=== PATIENT | male | born 1970 | race Caucasian/White ===

== ENCOUNTER 2017-06-08 00:12 | Observation (INO) ==
--- NOTE | 2017-06-08 01:11 | Emergency Department Note ---
Disposition Clinical Impression: Suicidal ideation Drug overdose Qualifiers: Encounter type: initial encounter Injury intent: undetermined intent Qualified Code(s): T50.904A - Poisoning by unspecified drugs, medicaments and biological substances, undetermined, initial encounter Disposition: Admitted As Inpatient Condition: Fair Time of Disposition: 03:26 General Adult HPI - General Chief complaint: ED Overdose Stated complaint: nonresponsive Time Seen by Provider: 06/08/17 00:18 Source: patient, EMS Limitations: no limitations Nursing Notes Reviewed: Yes Vital Signs Reviewed: Yes - History of Present Illness HPI Narrative: 47-year-old homeless male presents to the emergency department after being [place] un[place] [employer] [place]. EMS states that they [place] him [place] the [place] lying on the pavement with constricted pupils, low respiratory rate. Patient received Narcan intranasally and became responsive. Upon presentation the emergency department, patient denies using any drugs. Patient states that if he is discharged home he will "jump out in front of a truck and kill himself". Pain Scale: 0 - Related Data Previous Rx's Medication Instructions Recorded Nicotine Patch [Nicoderm] 21 mg TD DAILY #30 patch.td24 06/02/17 metFORMIN [Glucophage] 500 mg PO BIDWM #60 tablet 06/02/17 Allergies Allergy/AdvReac Type Severity Reaction Status Date / Time Amoxicillin Allergy Hives Verified 04/24/17 07:41 Penicillins Allergy Hives Verified 04/24/17 07:41 All systems ED: reviewed and negative except as stated. Review of Systems: As Per HPI Constitutional: Denies: fever, chills Cardiovascular: Denies: chest pain Respiratory: Denies: cough, dyspnea, wheezes Gastrointestinal: Reports: nausea, vomiting. Denies: abdominal pain Genitourinary: Denies: urgency, dysuria, frequency Musculoskeletal: Reports: back pain Neurological: Denies: headache, weakness, numbness, paresthesias Psychiatric: Reports: suicidal thoughts. Denies: homicidal thoughts Past Medical History - Past Medical History Medical history: Reports: hypertension, myocardial infarction Psychiatric history: Reports: depression, previous psychiatric hospitalization - Social History Smoking Status: Current every day smoker Smokeless Tobacco Status: No Alcohol use: Reports: heavy Drug use: Reports: cocaine, opiates, marijuana Physical Exam - General Limitations: no limitations General appearance: alert, in no apparent distress, other (Obese 47-year-old male who appears mildly somnolent.) - Head Head exam: atraumatic, normocephalic - Eye Eye exam: Present: EOMI. Absent: scleral icterus, conjunctival injection - ENT ENT exam: mucous membranes dry - Neck Neck exam: Present: trachea midline. Absent: tenderness, meningismus - Chest Chest inspection: Present: normal inspection, symmetric chest wall rise - Respiratory Respiratory exam: Present: normal lung sounds bilaterally. Absent: respiratory distress, accessory muscle use - Cardiovascular Cardiovascular exam: Present: normal rhythm, tachycardia, normal heart sounds - Abdominal Exam Abdominal exam: Present: soft, Non-Tender. Absent: distention, guarding, rebound, rigidity - Extremities Exam Extremities exam: Present: normal capillary refill. Absent: pedal edema - Back Exam Back exam: Present: full ROM. Absent: tenderness - Neurological Exam Neurological exam: Present: alert, oriented X3, other (Patient appears intoxicated.) - Psychiatric Psychiatric exam: Present: normal affect, normal mood - Skin Skin exam: Present: warm, dry, intact, normal color Course Course Narrative: This is a 47-year-old male who is homeless and presents to the emergency department after being found unresponsive by EMS. Patient currently states that he will jump in front of a truck and kill himself if he is discharged home. At this time, due to his suicidal ideations, we will obtain an EKG, urine drug screen, CBC, CMP, alcohol level, salicylate and Tylenol level. He is currently hemodynamically stable at this time a pink slip was filled out and signed by myself and Dr. Oseguera. Patient currently has a sitter. - Reevaluation(s) Reevaluation #1: Patient began to become a little more somnolent after initial initiation of Narcan. 1 mg of Narcan was given. Patient is now currently alert again. Urine drug screen revealed barbiturates, opiates, benzodiazepines. Patient's salicylate level less than 5. Patient is not having elevated ethanol level or Tylenol level. At this time, I believe the patient is medically cleared. I have talked to 1A for psychiatric clearance. Patient is currently hemodynamically stable at this time and eating a sandwich comfortably in bed. Time: 02:09 Reevaluation #2: Patient became somnolent again and was administered an additional milligram of Narcan. At this time, I will cancel the medical clearance as there is concern of what this patient may have ingested. He currently is alert and oriented. Time: 03:07 Reevaluation #3: Patient was admitted to the hospitalist with telemetry and requirement of a sitter to monitor his respiratory status. Time: 03:26 Vital Signs Temperature 97.6 F 06/08/17 00:19 Pulse Rate 110 06/08/17 00:19 Respiratory Rate 20 06/08/17 00:19 Blood Pressure 169/96 06/08/17 00:19 O2 Sat by Pulse Oximetry 98 06/08/17 00:19 Temperature 97.6 F 06/08/17 00:19 Pulse Rate 100 06/08/17 03:22 Respiratory Rate 22 06/08/17 03:43 Blood Pressure 146/83 06/08/17 03:22 O2 Sat by Pulse Oximetry 96 06/08/17 03:43 Oxygen Delivery Oxygen Delivery Room Air Medical Decision Making - Medical Records Medical records reviewed: Yes I reviewed the patient's medical records. - Lab Data Lab results reviewed: Yes I reviewed the patient's lab results. Result diagrams: 06/08/17 01:09 06/08/17 01:09 Lab Results 06/08/17 06/08/17 06/08/17 Range/Units 01:09 01:09 01:09 WBC 12.8 H (4.3-11.1) K/mcL RBC 4.29 (4.19-5.50) M/mcL Hgb 12.8 L (12.9-16.9) g/dL Hct 40.0 (37.5-50.1) % MCV 93.2 (83.0-100.0) fL MCH 29.8 (28.0-33.3) pg MCHC 32.0 (31.6-35.5) g/dL RDW 14.4 (11.5-14.5) % Plt Count 262 (140-400) K/mcL MPV 9.6 (9.4-12.4) fL Immature Gran % 1.2 (0-4) % Seg Neutrophils % 80.5 % Lymphocytes % 11.2 % Monocytes % 6.0 % Eosinophils % 0.6 % Basophils % 0.5 % Neutrophils # 10.3 H (1.6-8.9) K/mcL Lymphocytes # 1.4 (0.6-4.6) K/mcL Monocytes # 0.8 (0.0-1.3) K/mcL Eosinophils # 0.1 (0.0-0.6) K/mcL Basophils # 0.1 (0.0-0.2) K/mcL Immature Plt Fraction 2.6 (1.1-6.1) % Sodium (136-145) mEq/L Potassium (3.5-4.5) mEq/L Chloride (98-109) mEq/L Carbon Dioxide (19-29) mEq/L BUN (8-26) mg/dL Creatinine (0.72-1.25) mg/dL Est GFR ( Amer) (> 60) Est GFR (Non-Af Amer) (> 60) BUN/Creatinine Ratio (6-26) Glucose (70-99) mg/dL Calculated Osmolality (280-300) Calcium (8.6-10.8) mg/dL Urine Color Yellow (Yellow) Urine Clarity Cloudy A (Clear) Urine pH 6.5 (5.0-8.0) pH Units Ur Specific [place] 1.023 (1.010-1.025) Urine Protein 100 H (Neg-Trace) mg/dL Urine Glucose (UA) 250 H (Normal) mg/dL Urine Ketones Negative (Negative) mg/dL Urine Blood Negative (Negative) Urine Nitrite Negative (Negative) Urine Bilirubin Negative (Negative) Urine Urobilinogen Normal (Normal) mg/dL Ur Leukocyte Esterase Negative (Negative) Urine Microscopic RBC 0-3 (0-3) per hpf Urine Microscopic WBC 0-3 (0-3) per hpf Ur Squamous Epith Cells Many H (None-Few) per lpf Urine Bacteria None Seen (None-Few) per hpf Hyaline Casts None Seen (None-Few) per lpf Salicylates (15-30) mg/dL Urine Opiates Screen Positive H (Dtlzoi=314) ng/mL Acetaminophen (10-30) mcg/mL Ur Barbiturates Screen Positive H ([place]ou=079) ng/mL Ur Phencyclidine Scrn Negative (Cutoff=25) ng/mL Ur Amphetamines Screen Negative (Uvbcxe=2720) ng/mL U Benzodiazepines Scrn Positive H (Wivjfz=129) ng/mL Urine Cocaine Screen Positive H (Cutoff= 300) ng/mL U Marijuana (THC) Screen Negative (Cutoff = 50) ng/mL Ethyl Alcohol (0-10) mg/dL 06/08/17 Range/Units 01:09 WBC (4.3-11.1) K/mcL RBC (4.19-5.50) M/mcL Hgb (12.9-16.9) g/dL Hct (37.5-50.1) % MCV (83.0-100.0) fL MCH (28.0-33.3) pg MCHC (31.6-35.5) g/dL RDW (11.5-14.5) % Plt Count (140-400) K/mcL MPV (9.4-12.4) fL Immature Gran % (0-4) % Seg Neutrophils % % Lymphocytes % % Monocytes % % Eosinophils % % Basophils % % Neutrophils # (1.6-8.9) K/mcL Lymphocytes # (0.6-4.6) K/mcL Monocytes # (0.0-1.3) K/mcL Eosinophils # (0.0-0.6) K/mcL Basophils # (0.0-0.2) K/mcL Immature Plt Fraction (1.1-6.1) % Sodium 139 (136-145) mEq/L Potassium 3.8 (3.5-4.5) mEq/L Chloride 103 (98-109) mEq/L Carbon Dioxide 27 (19-29) mEq/L BUN 16 (8-26) mg/dL Creatinine 1.02 (0.72-1.25) mg/dL Est GFR ( Amer) > 60 (> 60) Est GFR (Non-Af Amer) > 60 (> 60) BUN/Creatinine Ratio 16 (6-26) Glucose 207 H (70-99) mg/dL Calculated Osmolality 295 (280-300) Calcium 8.9 (8.6-10.8) mg/dL Urine Color (Yellow) Urine Clarity (Clear) Urine pH (5.0-8.0) pH Units Ur Specific [place] (1.010-1.025) Urine Protein (Neg-Trace) mg/dL Urine Glucose (UA) (Normal) mg/dL Urine Ketones (Negative) mg/dL Urine Blood (Negative) Urine Nitrite (Negative) Urine Bilirubin (Negative) Urine Urobilinogen (Normal) mg/dL Ur Leukocyte Esterase (Negative) Urine Microscopic RBC (0-3) per hpf Urine Microscopic WBC (0-3) per hpf Ur Squamous Epith Cells (None-Few) per lpf Urine Bacteria (None-Few) per hpf Hyaline Casts (None-Few) per lpf Salicylates < 5.0 L (15-30) mg/dL Urine Opiates Screen (Cyphuu=155) ng/mL Acetaminophen < 1.0 L (10-30) mcg/mL Ur Barbiturates Screen (Bgyszg=219) ng/mL Ur Phencyclidine Scrn (Cutoff=25) ng/mL Ur Amphetamines Screen ([place]=2710) ng/mL U Benzodiazepines Scrn (Jdokbh=391) ng/mL Urine Cocaine Screen (Cutoff= 300) ng/mL U Marijuana (THC) Screen (Cutoff = 50) ng/mL Ethyl Alcohol < 10 (0-10) mg/dL - EKG Data EKG #1 EKG results narrative: 00:51 Ventricular rate 102 bpm, MS interval 157 ms, QRS duration 96 ms, QT 372 ms, QTC 431 ms, normal axis. Sinus tachycardia with a ventricular rate of 102 bpm. There is no tall R-wave in aVR, no QT prolongation, or any arrhythmia. There are no changes in this EKG in comparison to the one performed on June 01 2017. Critical Care Time Critical Care Time: Yes Total Critical Care Time: 40 Attestation: Critical care performed: Time is exclusive of separately billable procedures. Time includes: direct patient care, patient reassessment, coordination of patient care, interpretation of data (laboratory data, radiology data, and respiratory data), review of patient's medical records, medical consultation and documentation of patient care. Procedures included in critical care time: Procedures excluded from critical care time: Attestation Statement - Attestation Attestation: I, Adrian Oseguera MD, personally evaluated this patient and discussed their management with the resident physician. I reviewed the resident's note and agree with the documented findings, medical decision making, and plan of care. 47-year-old obese male who is homeless and [place] [employer] [place] unresponsive. He received Narcan prior to arrival and responded. On arrival here the patient was awake but drowsy. He will not admit to taking any drugs. He states that he is alcoholic and drinks alcohol every day and has been trying to cut back and wants to stop. Patient states he wants to be admitted because he is homeless and does not have anywhere to go and it is cold outside. After patient observed for a while he became very somnolent and unresponsive and required additional Narcan. Patient then started expressing suicidal ideation stating that if we discharge him he is going to go out and kill himself. He states he will walk out in front of a truck on the highway. Patient then became more somnolent again requiring more Narcan. Decision was made to admit the patient medically until whatever he has taken wares off so that he can be evaluated by psychiatry. On examination patient is a morbidly obese male in no acute distress. He is somewhat drowsy but responds to verbal stimuli. Speech is slurred. No gross focal neurological deficits. Breath sounds are decreased but equal bilaterally. Heart regular. Abdomen soft with normal bowel sounds. Labs reviewed. Tox screen positive for opiates, benzodiazepines, cocaine, and barbiturates. The hospitalist, Dr. Atkins, was consulted and accepted admission of the patient.
[2017-06-08 01:15] LABS: Basophils # 0.1 K/mcL (0.0-0.2); Basophils % 0.5 %; Eosinophils # 0.1 K/mcL (0.0-0.6); Eosinophils % 0.6 %; Hemoglobin 12.8 g/dL (12.9-16.9); Immature Granulocytes % 1.2 % (0-4); Immature Platelets 2.6 % (1.1-6.1); Lymphocytes # 1.4 K/mcL (0.6-4.6); Lymphocytes % 11.2 %; Mean Corpuscular Hemoglobin 29.8 pg (28.0-33.3); Mean Corpuscular Volume 93.2 fL (83.0-100.0); Mean Platelet Volume 9.6 fL (9.4-12.4); Monocytes # 0.8 K/mcL (0.0-1.3); Neutrophils # 10.3 K/mcL (1.6-8.9); Platelet Count 262 K/mcL (140-400); Red Blood Count 4.29 M/mcL (4.19-5.50); Red Cell Distribution Width 14.4 % (11.5-14.5); Segmented Neutrophils % 80.5 %
[2017-06-08 01:17] LABS: Bilirubin,Urine Negative (Negative); Blood,Urine Negative (Negative); Clarity,Urine Cloudy (Clear); Color,Urine Yellow (Yellow); Glucose,Urine (UA) 250 mg/dL (Normal); Ketones,Urine Negative (Negative); Leukocyte Esterase,Urine Negative (Negative); Nitrite,Urine Negative (Negative); PH,Urine 6.5 pH Units (5.0-8.0); Protein,Urine 100 mg/dL (Neg-Trace); Specific Gravity,Urine 1.023 (1.010-1.025); Urobilinogen,Urine Normal (Normal)
[2017-06-08 01:18] LABS: Bacteria,Urine None Seen per hpf (None-Few); Hyaline Casts,Urine None Seen per lpf (None-Few); RBC,Urine 0-3 per hpf (0-3); Squamous Epithelial Cell,Urine Many per lpf (None-Few); WBC,Urine 0-3 per hpf (0-3)
[2017-06-08 01:23] LABS: Amphetamine Screen,Urine Negative ng/mL (Cutoff=1000); Barbiturate Screen,Urine Positive ng/mL (Cutoff=200); Benzodiazepines Screen,Urine Positive ng/mL (Cutoff=200); Cannabinoid Screen,Urine Negative ng/mL (Cutoff = 50); Cocaine Screen,Urine Positive ng/mL (Cutoff= 300); Opiate Screen,Urine Positive ng/mL (Cutoff=300); Phencyclidine Screen,Urine Negative ng/mL (Cutoff=25)
[2017-06-08 01:28] LABS: BUN/Creatinine Ratio 16 (6-26); Blood Urea Nitrogen 16 mg/dL (8-26); Calcium 8.9 mg/dL (8.6-10.8); Carbon Dioxide 27 mEq/L (19-29); Chloride 103 mEq/L (98-109); Glucose 207 mg/dL (70-99); Osmolality,Calculated 295 (280-300); Potassium 3.8 mEq/L (3.5-4.5); Sodium 139 mEq/L (136-145); eGFR For African Americans > 60 (> 60); eGFR For Non-African Americans > 60 (> 60)
[2017-06-08 01:31] LABS: Acetaminophen < 1.0 mcg/mL (10-30); Ethanol < 10 mg/dL (0-10); Salicylate < 5.0 mg/dL (15-30)
[2017-06-08] MEDS ORDERED: Naloxone 0.4 MG/ML INJ IVP PRN ×2 (07:37→07:38)
[2017-06-08] MEDS ORDERED: Mag Hydrox/Al Hydrox/Simeth 30 ML UDC PO PRN (07:38)
[2017-06-08] MEDS ORDERED: Ondansetron 4 MG/2 ML VIAL IVP PRN (07:38)
[2017-06-08] MEDS ORDERED: MOM Conc 10 ML UD.LIQ PO PRN (07:38)
[2017-06-08] MEDS ORDERED: *HR* Dextrose 50 % in Water (Syg) 50 ML SYRINGE IVP PRN (07:41)
[2017-06-08] MEDS ORDERED: Dextrose Gel 15 GM PO PRN ×2 (07:41)
[2017-06-08] MEDS ORDERED: D5% in Water 1,000 ML IVC PRN (07:41)
[2017-06-08] MEDS ORDERED: *HR* LORazepam 2 MG/ML VIAL IVP PRN (07:43)
[2017-06-08] MEDS: Nicotine 21 MG PATCH.TD24 TD SCH (09:19)
[2017-06-08] MEDS: Vitamin B Complex/Vit C/Vit E 1 EACH TABLET PO SCH (09:19)
[2017-06-08] MEDS: Folic Acid 1 MG TABLET PO SCH (09:19)
[2017-06-08] MEDS: Doxycycline 100 MG CAPSULE PO SCH ×2 (09:19→20:28)
[2017-06-08] MEDS: *HR* LORazepam 2 MG/ML VIAL IVP PRN ×6 (09:37→23:40)
--- NOTE | 2017-06-08 09:42 | Internal Med History&Physical ---
Date of Encounter: 06/08/17 Time of Encounter: 08:15 Assessment and Plan (1) Drug overdose Current visit: Yes Status: Acute Pt found unresponsive with drug screen positive for benzo, opiate and barbiturate. Monitoring. Now awake and alert. Qualifiers: Encounter type: initial encounter Injury intent: undetermined intent Qualified Code(s): T50.904A - Poisoning by unspecified drugs, medicaments and biological substances, undetermined, initial encounter (2) Suicidal ideation Current visit: Yes Status: Acute Placed in observation. Sitter and suicide precautions. Psych eval. Pt is medically clear for discharge at this time. (3) Depression Current visit: No Status: Chronic Psych eval for plan of care. Qualifiers: Depression Type: major depressive disorder Major depression recurrence: recurrent Active/Remission status: currently active Major depression episode severity: moderate Qualified Code(s): F33.1 - Major depressive disorder, recurrent, moderate (4) Polysubstance abuse Current visit: No Status: Chronic Monitor for withdrawal symptoms. (5) Alcohol withdrawal Current visit: No Status: Chronic On CIWA at this time. Qualifiers: Complication of substance-induced condition: uncomplicated Qualified Code(s ): F10.230 - Alcohol dependence with withdrawal, uncomplicated (6) Hypertension Current visit: No Status: Chronic Monitoring. On no home meds at this time. Qualifiers: Hypertension type: essential hypertension Qualified Code(s): I10 - Essential (primary) hypertension (7) Diabetes mellitus Current visit: Yes Status: Chronic Hold Metformin. Accuchecks and coverage. Qualifiers: Diabetes mellitus type: type 2 Diabetes mellitus complication status: with hyperglycemia Diabetes mellitus continuous churn buttermaker insulin use: without group home use Qualified Code(s): E11.65 - Type 2 diabetes mellitus with hyperglycemia (8) Tobacco abuse Current visit: Yes Status: Chronic Cessation counselling. (9) Morbid obesity with BMI of 50.0-59.9, adult Current visit: Yes Status: Chronic Chronic issue. Internal Medicine - H&P: HPI Admitted From: Emergency Dept Plans for Post Hospital Care: Transfer Psych Facility History of present illness: Mr. Adams is a 47 year old male with hx of CAD and chronic polysubstance abuse with alcohol and drugs (heroin and cocaine) brought to ED after being found unresponsive in [employer] parking lot. He was evaluated in ED and required multiple doses of Narcan to remain awake. He was subsequently admitted. Currently he is awake and oriented. He is complaining of L shoulder pain and was told he needs an MRI. He is also worried about his legs and concerned about cellulitis. He says he feels shaky and wants something for alcohol withdrawal. He was here about a week ago and treated for ETOH and discharged to inpatient detox. He says it was not covered by his insurance so he left. He has made comments about planning to "step out in front of a truck" if he is discharged. At this time he is eating breakfast. Past Med Surg Social Fam HX - Past Medical History Source: patient Medical history: CHF, hypertension, myocardial infarction Psychiatric history: depression, prior suicide attempt, previous psychiatric hospitalization - Past Surgical History Surgical History: no surgical history - Social History Smoking Status: Current every day smoker Packs per day: 1 Smokeless Tobacco Status: No Alcohol use: heavy, recent Drug use: cocaine, opiates, marijuana, IV Drug Use Current living situation: Homeless Activity Level: Independent ambulation Recent Out of Country Travel Within the Last 8 Weeks: No Exposure or Possible Exposure to Illness During Travel: No - Family History Father Living Status: Age at : 56 Cause of : Alcoholism Internal Medicine - H&P: Meds Nicotine Patch [Nicoderm] 21 mg TD DAILY #30 patch.td24 06/02/17 [Rx] metFORMIN [Glucophage] 500 mg PO BIDWM #60 tablet 06/02/17 [Rx] 3 Allergy/AdvReac Type Severity Reaction Status Date / Time Amoxicillin Allergy Hives Verified 04/24/17 07:41 Penicillins Allergy Hives Verified 04/24/17 07:41 All Systems PM: A 10-system review of systems was performed and is negative for pertinent findings except as documented above in the HPI. - Constitutional Constitutional: as per HPI, no chills, no fever(s) - EENT Eyes: as per HPI, no blurry vision, no loss of vision, no pain Ears: as per HPI, no decreased hearing, no ear pain Nose, mouth and throat: as per HPI, no dental pain, no mouth pain, no sore throat - Cardiovascular Cardiovascular ROS IM: as per HPI, dyspnea, edema, no chest pain - Respiratory Respiratory: as per HPI, dyspnea, no hemoptysis, no wheezing, no chest congestion - Gastrointestinal Gastrointestinal: as per HPI, no abdominal pain, no diarrhea, no melena - Genitourinary Genitourinary ROS male: as per HPI, no dysuria, no flank pain, no nocturia - Musculoskeletal Musculoskeletal ROS IM: as per HPI, limited range of motion (L shoulder), stiffness (L shoulder) - Integumentary Integumentary IM: no erythema, no new lesions - Neurological Neurological ROS: no abnormal gait, no abnormal hearing, no confusion, no numbness, no vertigo - Psychiatric Psychiatric: depression, suicidal ideation - Endocrine Endocrine IM: no cold intolerance, no flushing - Hematologic/Lymphatic Hematologic/Lymphatic: no easy bleeding - Allergic/Immunologic Allergic/Immunologic: no wheezing, no lip swelling - Constitutional Vitals: Temp Pulse Resp BP Pulse Ox 97.7 F 97 18 161/104 99 06/08/17 04:59 06/08/17 04:59 06/08/17 04:59 06/08/17 04:59 06/08/17 07:41 General appearance: Present: A&O X 3, morbidly obese, answers questions appropriately - Head Head exam: Present: normocephalic - Eye Eye exam: Present: EOMI, conjuntiva pink - ENT ENT exam: Present: mucous membranes moist - Respiratory Respiratory exam: Present: CTAB. Absent: rales, rhonchi, wheezes - Cardiovascular Cardiovascular exam: Present: RRR. Absent: tachycardia - GI/Abdominal Additional comments: Obese. Difficult to feel. - Extremities Exam Extremities exam: Present: pedal edema, warm Additional comments: Changes consistent with venous stasis bilaterally. Mild erythema bilaterally - Neurological Exam Neurological exam: Present: alert, oriented X3, no focal deficits - Psychiatric Psychiatric exam: Present: depressed, suicidal ideation - Skin Skin exam: Present: erythema, warm Additional comments: Ecchymosis on abdomen Internal Med - H&P Results - Labs CBC & Chem 7: 06/08/17 01:09 06/08/17 01:09
[2017-06-08 11:13] LABS: ABG Base Excess 4.6 mEq/L (-2.0 to 3.0); ABG Glucose 150 mg/dL (60-95); ABG HCO3 32 mEq/L (21-27); ABG Ionized Calcium 1.19 mmol/L (1.15-1.35); ABG Oxygen Saturation 93 % (95-98); ABG PCO2 61 mmHg (35-45); ABG PH 7.33 pH Units (7.32-7.45); ABG PO2 73 mmHg (85-104); ABG TCO2 34 mEq/L (20-26)
[2017-06-08 11:14] LABS: Blood Gas Modality NC
[2017-06-08] MEDS: Insulin LISPRO 300 UNITS/3 ML VIAL SQ SCH ×3 (11:54→20:28)
--- NOTE | 2017-06-08 14:36 | Consult Note ---
Date of Encounter: 06/08/17 Time of Encounter: 14:10 Assessment & Recommendation (1) Altered mental status Current visit: Yes Status: Acute Assessment & Recommendation: Patient is currently lethargic and nonresponsive. He will be reevaluated when he is more alert. Qualifiers: Altered mental status type: delirium Qualified Code(s): R41.0 - Disorientation, unspecified History of Present Illness Patient: new to practice Requesting Physician: Davi Mendez DO Reason for consult: Suicidal ideation History of present illness: Mr. Adams is a 47 year old male admitted to the hospital for evaluation and treatment of possible drug overdose, tox screen was positive for barbiturates benzodiazepine and cocaine. Patient had long history of polysubstance abuse and alcohol dependence in addition to hypertension and diabetes and morbid obesity. Psych consultation was requested to evaluate suicidal ideation. No record of past psychiatric treatments or hospitalization are available at this time. I went to see the patient and he was lethargic and not able to respond to question and receiving respiratory treatment and could not be interviewed. I discussed the case by phone with his provider Davi mendez and he would be monitored and may need to be reevaluated tomorrow. CC: Davi Mendez DO Past Med Surg Social Fam HX - Past Medical History Medical history: CHF, hypertension, myocardial infarction - Past Surgical History Surgical History: no surgical history - Social History Smoking Status: Current every day smoker Smokeless Tobacco Status: No Alcohol use: heavy, recent Drug use: cocaine, opiates, marijuana, IV Drug Use - Family History Father Living Status: Age at : 56 Cause of : Alcoholism Medications & Allergies Nicotine Patch [Nicoderm] 21 mg TD DAILY #30 patch.td24 06/02/17 [Rx] metFORMIN [Glucophage] 500 mg PO BIDWM #60 tablet 06/02/17 [Rx] 3 Allergy/AdvReac Type Severity Reaction Status Date / Time Amoxicillin Allergy Hives Verified 04/24/17 07:41 Penicillins Allergy Hives Verified 04/24/17 07:41 Mental Status Exam Additional observations: Patient presented as morbidly obese middle-aged male lying in bed with a respiratory treatment mask and could not be interviewed due to his lethargy. Results - Vital Signs Vital signs: Temp Pulse Resp BP Pulse Ox 97.7 F 102 20 129/68 97 06/08/17 04:59 06/08/17 10:28 06/08/17 10:28 06/08/17 10:28 06/08/17 10:28 - Labs Labs: Laboratory Last Values WBC 12.8 K/mcL (4.3-11.1) H 06/08/17 01:09 RBC 4.29 M/mcL (4.19-5.50) 06/08/17 01:09 Hgb 12.8 g/dL (12.9-16.9) L 06/08/17 01:09 Hct 40.0 % (37.5-50.1) 06/08/17 01:09 MCV 93.2 fL (83.0-100.0) 06/08/17 01:09 MCH 29.8 pg (28.0-33.3) 06/08/17 01:09 MCHC 32.0 g/dL (31.6-35.5) 06/08/17 01:09 RDW 14.4 % (11.5-14.5) 06/08/17 01:09 Plt Count 262 K/mcL (140-400) 06/08/17 01:09 MPV 9.6 fL (9.4-12.4) 06/08/17 01:09 Immature Gran % 1.2 % (0-4) 06/08/17 01:09 Seg Neutrophils % 80.5 % 06/08/17 01:09 Lymphocytes % 11.2 % 06/08/17 01:09 Monocytes % 6.0 % 06/08/17 01:09 Eosinophils % 0.6 % 06/08/17 01:09 Basophils % 0.5 % 06/08/17 01:09 Neutrophils # 10.3 K/mcL (1.6-8.9) H 06/08/17 01:09 Lymphocytes # 1.4 K/mcL (0.6-4.6) 06/08/17 01:09 Monocytes # 0.8 K/mcL (0.0-1.3) 06/08/17 01:09 Eosinophils # 0.1 K/mcL (0.0-0.6) 06/08/17 01:09 Basophils # 0.1 K/mcL (0.0-0.2) 06/08/17 01:09 Immature Plt Fraction 2.6 % (1.1-6.1) 06/08/17 01:09 ABG pH 7.33 pH Units (7.32-7.45) 06/08/17 11:05 ABG pCO2 61 mmHg (35-45) H 06/08/17 11:05 ABG pO2 73 mmHg (85-104) L 06/08/17 11:05 ABG HCO3 32 mEq/L (21-27) H 06/08/17 11:05 ABG Total CO2 34 mEq/L (20-26) H 06/08/17 11:05 ABG O2 Saturation 93 % (95-98) L 06/08/17 11:05 ABG Base Excess 4.6 mEq/L (-2.0 to 3.0) H 06/08/17 11:05 ABG Hematocrit 38.0 % (35-51) 06/08/17 11:05 Sodium 136 mEq/L (135-148) 06/08/17 11:05 Potassium 3.6 mEq/L (3.5-5.3) 06/08/17 11:05 Glucose 150 mg/dL (60-95) H 06/08/17 11:05 Ionized Calcium 1.19 mmol/L (1.15-1.35) 06/08/17 11:05 Blood Gas Modality NC 06/08/17 11:05 Inspired O2 36.0 % 06/08/17 11:05 Sodium 139 mEq/L (136-145) 06/08/17 01:09 Potassium 3.8 mEq/L (3.5-4.5) 06/08/17 01:09 Chloride 103 mEq/L (98-109) 06/08/17 01:09 Carbon Dioxide 27 mEq/L (19-29) 06/08/17 01:09 BUN 16 mg/dL (8-26) 06/08/17 01:09 Creatinine 1.02 mg/dL (0.72-1.25) 06/08/17 01:09 Est GFR ( Amer) > 60 (> 60) 06/08/17 01:09 Est GFR (Non-Af Amer) > 60 (> 60) 06/08/17 01:09 BUN/Creatinine Ratio 16 (6-26) 06/08/17 01:09 Glucose 207 mg/dL (70-99) H 06/08/17 01:09 POC Glucose 189 (58-89) H 06/08/17 09:22 Calculated Osmolality 295 (280-300) 06/08/17 01:09 Calcium 8.9 mg/dL (8.6-10.8) 06/08/17 01:09 Urine Color Yellow (Yellow) 06/08/17 01:09 Urine Clarity Cloudy (Clear) A 06/08/17 01:09 Urine pH 6.5 pH Units (5.0-8.0) 06/08/17 01:09 Ur Specific [place] 1.023 (1.010-1.025) 06/08/17 01:09 Urine Protein 100 mg/dL (Neg-Trace) H 06/08/17 01:09 Urine Glucose (UA) 250 mg/dL (Normal) H 06/08/17 01:09 Urine Ketones Negative mg/dL (Negative) 06/08/17 01:09 Urine Blood Negative (Negative) 06/08/17 01:09 Urine Nitrite Negative (Negative) 06/08/17 01:09 Urine Bilirubin Negative (Negative) 06/08/17 01:09 Urine Urobilinogen Normal mg/dL (Normal) 06/08/17 01:09 Ur Leukocyte Esterase Negative (Negative) 06/08/17 01:09 Urine Microscopic RBC 0-3 per hpf (0-3) 06/08/17 01:09 Urine Microscopic WBC 0-3 per hpf (0-3) 06/08/17 01:09 Ur Squamous Epith Cells Many per lpf (None-Few) H 06/08/17 01:09 Urine Bacteria None Seen per hpf (None-Few) 06/08/17 01:09 Hyaline Casts None Seen per lpf (None-Few) 06/08/17 01:09 Salicylates < 5.0 mg/dL (15-30) L 06/08/17 01:09 Urine Opiates Screen Positive ng/mL (Juoroe=149) H 06/08/17 01:09 Acetaminophen < 1.0 mcg/mL (10-30) L 06/08/17 01:09 Ur Barbiturates Screen Positive ng/mL (Fcwdfz=413) H 06/08/17 01:09 Ur Phencyclidine Scrn Negative ng/mL (Cutoff=25) 06/08/17 01:09 Ur Amphetamines Screen Negative ng/mL (Ructsx=1720) 06/08/17 01:09 U Benzodiazepines Scrn Positive ng/mL (Jofuzf=431) H 06/08/17 01:09 Urine Cocaine Screen Positive ng/mL (Cutoff= 300) H 06/08/17 01:09 U Marijuana (THC) Screen Negative ng/mL (Cutoff = 50) 06/08/17 01:09 Ethyl Alcohol < 10 mg/dL (0-10) 06/08/17 01:09 Consult Discharge Plan - Plan Referrals: Joe Bell MD [Primary Care Provider] -
[2017-06-08] MEDS ORDERED: Thiamine (B-1) 100 MG, Folic Acid 1 MG, MVI, adult with vitamin K 10 ML in 0.9 % Sodi... IVPB SCH (18:00)
[2017-06-08] MEDS: Acetaminophen 325 MG TABLET PO PRN (19:00)
--- NOTE | 2017-06-08 19:20 | Electrocardiograph Report ---
[place] [id number] Test Date: 2017-06-08 Pat Name: Chinedu Adams Department: 103 Room: 2NE16 Gender: M Nurse Aide Evaluator: ALEXANDRA : 1970 Requested By: Ramo Roberts Order Number: [id number] Reading MD: Syed Pepe MD Measurements Intervals [place] Rate: 102 P: 50 NE: 157 QRS: 62 QRSD: 96 T: 48 QT: 372 QTc: 431 Interpretive Statements SINUS TACHYCARDIA Poor R wave progression Electronically Signed On 06-08-2017 19:19:19 EDT by Syed Pepe MD
[2017-06-09] MEDS: *HR* LORazepam 2 MG/ML VIAL IVP PRN ×7 (02:59→22:17)
[2017-06-09 04:00] LABS: Hematocrit 37.1 % (37.5-50.1); Hemoglobin 11.9 g/dL (12.9-16.9); Mean Corpuscular HGB Conc 32.1 g/dL (31.6-35.5); Mean Corpuscular Hemoglobin 30.4 pg (28.0-33.3); Mean Corpuscular Volume 94.6 fL (83.0-100.0); Mean Platelet Volume 10.2 fL (9.4-12.4); Platelet Count 204 K/mcL (140-400); Red Blood Count 3.92 M/mcL (4.19-5.50); Red Cell Distribution Width 14.3 % (11.5-14.5)
[2017-06-09 04:03] LABS: Alanine Aminotransferase 22 Units/L (0-55); Albumin/Globulin Ratio 0.9 (1.1-2.2); Alkaline Phosphatase 69 Units/L (38-126); Aspartate Amino Transferase 19 Units/L (5-34); BUN/Creatinine Ratio 19 (6-26); Bilirubin,Total 0.2 mg/dL (0.2-1.2); Blood Urea Nitrogen 15 mg/dL (8-26); Calcium 8.5 mg/dL (8.6-10.8); Carbon Dioxide 28 mEq/L (19-29); Chloride 105 mEq/L (98-109); Globulin 3.4 g/dL (2.4-3.5); Glucose 160 mg/dL (70-99); Magnesium 1.7 mg/dL (1.6-2.6); Osmolality,Calculated 292 (280-300); Sodium 139 mEq/L (136-145); Total Protein 6.4 g/dL (6.0-8.3); eGFR For African Americans > 60 (> 60); eGFR For Non-African Americans > 60 (> 60)
[2017-06-09 04:26] LABS: Potassium 3.9 mEq/L (3.5-4.5)
[2017-06-09] MEDS: Insulin LISPRO 300 UNITS/3 ML VIAL SQ SCH ×4 (07:52→21:00)
[2017-06-09] MEDS: Vitamin B Complex/Vit C/Vit E 1 EACH TABLET PO SCH (08:18)
[2017-06-09] MEDS: Doxycycline 100 MG CAPSULE PO SCH ×2 (08:18→19:47)
[2017-06-09] MEDS: Thiamine (B-1) 100 MG TABLET PO SCH (08:18)
[2017-06-09] MEDS: Folic Acid 1 MG TABLET PO SCH (08:19)
[2017-06-09] MEDS: Nicotine 21 MG PATCH.TD24 TD SCH (08:19)
[2017-06-09] MEDS: Acetaminophen 325 MG TABLET PO PRN (15:26)
[2017-06-09] MEDS ORDERED: hydrOXYzine pamoate 25 MG CAPSULE PO PRN (15:58)
--- NOTE | 2017-06-09 17:21 | Internal Med Progress Note ---
<Juvenal Ferguson - Last Filed: 06/09/17 17:34> Date of Encounter: 06/09/17 Time of Encounter: 08:30 - Assessment and plan (1) Drug overdose Current Visit: Yes Status: Resolved Assessment and plan: Drug overdose by heroin The patient has regained consciousness, he is alert and oriented 3 He says that he has taken heroin, cocaine, marijuana, benzodiazepines UDS positive for benzos and opiates and barbiturates Patient initially indicated suicidal ideation, however he has not indicated that since Psych consult pending Qualifiers: Encounter type: initial encounter Injury intent: undetermined intent Qualified Code(s): T50.904A - Poisoning by unspecified drugs, medicaments and biological substances, undetermined, initial encounter (2) Drug-seeking behavior Current Visit: No Status: Acute Assessment and plan: Patient repeatedly asking for increased dosage of Ativan Patient states that he is shaky from alcohol withdrawal despite very mild or absent shaking Patient becomes agitated when refused this dosage or early dosage of Ativan Patient has threatened to leave AMA (3) History of mixed drug abuse Current Visit: No Status: Acute Assessment and plan: Patient admits to use of heroin, benzos, marijuana, cocaine, alcohol UDS positive for the above plus barbiturates (4) Suicidal ideation Current Visit: Yes Status: Acute Assessment and plan: Patient admitted to suicidal ideations at time of admission He stated "I will walk in front of a bus" Since that time, the patient has retracted statements and threatened to leave AMA. Psychiatry attempted to see the patient yesterday however was unable to due to sedation Patient has been pink slipped over night in order for psychiatry to evaluate in the morning (5) Alcohol withdrawal Current Visit: Yes Status: Chronic Assessment and plan: Patient on CIWA protocol, most recent score 4 Patient has asked for repeat doses of Ativan repeatedly and been refused He currently is showing very little indication of severe alcohol withdrawal He has been treated with adequate nutrition and supplementation We will DC banana bag and switched to oral repletion. Continue to follow up Qualifiers: Complication of substance-induced condition: uncomplicated Qualified Code(s ): F10.230 - Alcohol dependence with withdrawal, uncomplicated (6) LOC (loss of consciousness) Current Visit: Yes Status: Resolved Assessment and plan: Patient was found unconscious and was alerted with Narcan (7) Diabetes mellitus Current Visit: Yes Status: Chronic Assessment and plan: Glucose has been elevated throughout the duration of his stay. Fasting glucose this morning was 160 Insulin sliding scale with hypoglycemic protocol in place Qualifiers: Diabetes mellitus type: type 2 Diabetes mellitus complication status: with hyperglycemia Diabetes mellitus group home insulin use: without group home use Qualified Code(s): E11.65 - Type 2 diabetes mellitus with hyperglycemia (8) Morbid obesity with BMI of 50.0-59.9, adult Current Visit: Yes Status: Chronic Assessment and plan: Patient advised that the benefits of weight loss (9) DVT prophylaxis Current Visit: No Status: Acute Assessment and plan: Patient is ambulatory in his room We will consider subcutaneous heparin - Subjective Interval history: The patient was seen and examined at bedside at approximately 8 to 8:30 this morning. At this time the patient was extremely somnolent and unarousable, and could only be aroused with sternal rub. The patient would not hold any conversation or answer questions meaningfully at this time and would immediately go back to sleep. At around 11 AM, the patient was up and sitting in his bed. Examination at this time revealed that the patient has no acute complaints, however is requesting that he received more Ativan because he feels that he is shaky. He also indicated that he is likely to sign out AMA if given the opportunity if we do not plan on increasing the dose of Ativan that he is receiving. [place] slip was filled out at approximately 3:30 to 4 PM as the patient had recently mentioned that he would harm himself by "stepping in front of a bus" when he left here. Psychiatry has been reconsulted and will see the patient in the morning. - Constitutional Vitals: Temp Pulse Resp BP Pulse Ox 98.5 F 93 18 151/79 97 06/09/17 15:29 06/09/17 15:29 06/09/17 15:29 06/09/17 15:29 06/09/17 15:29 General appearance: Present: A&O X 3, morbidly obese. Absent: cooperative Exam: - Cardiovascular Cardiovascular 2+edema in b/l LE edema, no chest pain - Respiratory Respiratory: moderate dyspnea, no hemoptysis, no wheezing, no chest congestion - Gastrointestinal Gastrointestinal: no abdominal pain, no diarrhea, no melena - Genitourinary Genitourinary ROS male: no dysuria, no flank pain, no nocturia - Musculoskeletal Musculoskeletal ROS IM: limited range of motion (L shoulder), stiffness (L shoulder) - Integumentary Integumentary IM: no erythema, no new lesions - Neurological Neurological ROS: no abnormal gait, no abnormal hearing, no confusion, no numbness, no vertigo - Psychiatric Psychiatric: depression, - suicidal ideation - Endocrine Endocrine IM: no cold intolerance, no flushing - Hematologic/Lymphatic Hematologic/Lymphatic: no easy bleeding - Allergic/Immunologic Allergic/Immunologic: no wheezing, no lip swelling Internal Medicine: Result - Labs CBC & Chem 7: 06/09/17 03:22 06/09/17 03:22 Labs: Short CBC 06/09/17 Range/Units 03:22 WBC 10.3 (4.3-11.1) K/mcL Hgb 11.9 L (12.9-16.9) g/dL Hct 37.1 L (37.5-50.1) % Plt Count 204 (140-400) K/mcL BMP 06/09/17 03:22 Sodium 139 Potassium 3.9 Chloride 105 Carbon Dioxide 28 BUN 15 Creatinine 0.79 Glucose 160 H Calcium 8.5 L Liver Function 06/09/17 Range/Units 03:22 Total Bilirubin 0.2 (0.2-1.2) mg/dL AST 19 (5-34) Units/L ALT 22 (0-55) Units/L Alkaline Phosphatase 69 (38-126) Units/L Albumin 3.0 L (3.5-5.0) g/dL - ABG Interpretation ABG results: ABG ABG pH 7.33 pH Units (7.32-7.45) 06/08/17 11:05 ABG pCO2 61 mmHg (35-45) H 06/08/17 11:05 ABG pO2 73 mmHg (85-104) L 06/08/17 11:05 ABG O2 Saturation 93 % (95-98) L 06/08/17 11:05 Consult Discharge Plan - Plan Referrals: Joe Bell MD [Primary Care Provider] - <Davi Mendez - Last Filed: 06/09/17 18:15> Date of Encounter: 06/09/17 - Assessment and plan (1) Drug overdose Current Visit: Yes Status: Resolved Qualifiers: Encounter type: subsequent encounter Injury intent: undetermined intent Qualified Code(s): T50.904D - Poisoning by unspecified drugs, medicaments and biological substances, undetermined, subsequent encounter (2) Suicidal ideation Current Visit: Yes Status: Acute (3) Depression Current Visit: No Status: Chronic Qualifiers: Depression Type: major depressive disorder Major depression recurrence: recurrent Active/Remission status: currently active Major depression episode severity: moderate Qualified Code(s): F33.1 - Major depressive disorder, recurrent, moderate (4) Polysubstance abuse Current Visit: No Status: Chronic (5) Alcohol withdrawal Current Visit: Yes Status: Chronic Qualifiers: Complication of substance-induced condition: uncomplicated Qualified Code(s ): F10.230 - Alcohol dependence with withdrawal, uncomplicated (6) Hypertension Current Visit: No Status: Chronic Qualifiers: Hypertension type: essential hypertension Qualified Code(s): I10 - Essential (primary) hypertension (7) Diabetes mellitus Current Visit: Yes Status: Chronic Qualifiers: Diabetes mellitus type: type 2 Diabetes mellitus complication status: with hyperglycemia Diabetes mellitus group home insulin use: without group home use Qualified Code(s): E11.65 - Type 2 diabetes mellitus with hyperglycemia (8) Tobacco abuse Current Visit: Yes Status: Chronic (9) Morbid obesity with BMI of 50.0-59.9, adult Current Visit: Yes Status: Chronic - Constitutional Vitals: Temp Pulse Resp BP Pulse Ox 98.5 F 93 18 151/79 97 06/09/17 15:29 06/09/17 15:29 06/09/17 15:29 06/09/17 15:29 06/09/17 15:29 Internal Medicine: Result - Labs CBC & Chem 7: 06/09/17 03:22 06/09/17 03:22 Labs: Short CBC 06/09/17 Range/Units 03:22 WBC 10.3 (4.3-11.1) K/mcL Hgb 11.9 L (12.9-16.9) g/dL Hct 37.1 L (37.5-50.1) % Plt Count 204 (140-400) K/mcL BMP 06/09/17 03:22 Sodium 139 Potassium 3.9 Chloride 105 Carbon Dioxide 28 BUN 15 Creatinine 0.79 Glucose 160 H Calcium 8.5 L Liver Function 06/09/17 Range/Units 03:22 Total Bilirubin 0.2 (0.2-1.2) mg/dL AST 19 (5-34) Units/L ALT 22 (0-55) Units/L Alkaline Phosphatase 69 (38-126) Units/L Albumin 3.0 L (3.5-5.0) g/dL - ABG Interpretation ABG results: ABG ABG pH 7.33 pH Units (7.32-7.45) 06/08/17 11:05 ABG pCO2 61 mmHg (35-45) H 06/08/17 11:05 ABG pO2 73 mmHg (85-104) L 06/08/17 11:05 ABG O2 Saturation 93 % (95-98) L 06/08/17 11:05 - Attending Attestation I examined this patient and my medical decision-making was reviewed with the Resident Physician on 06/09/17. I agree with the documented findings, disposition and treatment plan as described except to the extent set forth below. Mr. Adams is currently in observation for polysubstance abuse and withdrawal. He wants to leave A but I have completed a "pink slip" due to his reports of suicidal ideation yesterday on admit. He has been scoring low on his CIWA but is asking for more Ativan. Exam Alert. Comfortable Heart not tachy Lungs no wheeze Legs same I/P 1. Polysubstance abuse 2. Suicidal ideation - psych to see Further diagnoses and plan as above.
[2017-06-10] MEDS ORDERED: *HR* Enoxaparin 40 MG/0.4 ML SYRINGE SQ SCH (06:00)
[2017-06-10 07:12] LABS: BUN/Creatinine Ratio 17 (6-26); Blood Urea Nitrogen 14 mg/dL (8-26); Calcium 8.7 mg/dL (8.6-10.8); Carbon Dioxide 27 mEq/L (19-29); Chloride 101 mEq/L (98-109); Glucose 220 mg/dL (70-99); Osmolality,Calculated 293 (280-300); Potassium 3.4 mEq/L (3.5-4.5); Sodium 138 mEq/L (136-145); eGFR For African Americans > 60 (> 60); eGFR For Non-African Americans > 60 (> 60)
[2017-06-10] MEDS: Folic Acid 1 MG TABLET PO SCH (08:00)
[2017-06-10] MEDS: Insulin LISPRO 300 UNITS/3 ML VIAL SQ SCH (08:00)
[2017-06-10] MEDS: Vitamin B Complex/Vit C/Vit E 1 EACH TABLET PO SCH (08:00)
[2017-06-10] MEDS: Thiamine (B-1) 100 MG TABLET PO SCH (08:00)
[2017-06-10] MEDS: Doxycycline 100 MG CAPSULE PO SCH (08:00)
[2017-06-10] MEDS: Nicotine 21 MG PATCH.TD24 TD SCH (08:01)
[2017-06-10 08:13] VITALS: BP 127/65
--- NOTE | 2017-06-10 09:54 | Discharge Summary ---
<Juvenal Ferguson - Last Filed: 06/10/17 10:59> Date of Encounter: 06/10/17 Time of Encounter: 10:00 - Discharge Diagnosis (1) Drug overdose Priority: Primary Status: Resolved Comments: Drug overdose by heroin, Resolved The patient has returned to baseline mental status, he is alert and oriented 3 He says that he has taken heroin, cocaine, marijuana, benzodiazepines UDS positive for benzos and opiates and barbiturates Qualifiers: Encounter type: subsequent encounter Injury intent: undetermined intent Qualified Code(s): T50.904D - Poisoning by unspecified drugs, medicaments and biological substances, undetermined, subsequent encounter (2) Dermatitis Priority: Secondary Status: Acute Comments: Acute dermatitis, likely cellulitis versus stasis dermatitis Patient is on day 2 of doxycycline Continue for a total of 10 days treatment as outpatient (3) History of mixed drug abuse Priority: Secondary Status: Chronic Comments: Patient admits to use of heroin, benzos, marijuana, cocaine, alcohol UDS positive for the above plus barbiturates Rehabilitation as an outpatient may be indicated at his discretion. (4) Suicidal ideation Priority: Primary Status: Resolved Comments: Patient admitted to suicidal ideations at the time of admission He stated "I will walk in front of a bus" The patient has since retracted his statements, and has been evaluated by psychiatry Psychiatrist term that the patient is no longer a danger to himself or others and that he is suitable for discharge (5) Alcohol withdrawal Priority: Secondary Status: Chronic Comments: Patient on CIWA protocol and has consistently received scores under 7 Notably the patient has determined the criteria of the protocol, and has been getting this information to achieve a higher score The patient has no physiological signs of severe alcohol withdrawal And is medically stable for discharge Qualifiers: Complication of substance-induced condition: uncomplicated Qualified Code(s ): F10.230 - Alcohol dependence with withdrawal, uncomplicated (6) LOC (loss of consciousness) Priority: Secondary Status: Resolved Comments: Resolved with Narcan (7) Diabetes mellitus Priority: Secondary Status: Chronic Comments: The patient states that he has his medications in the appropriate testing material to manage his diabetes It would be appropriate for the patient follow-up with his primary care within 1 -2weeks Qualifiers: Diabetes mellitus type: type 2 Diabetes mellitus complication status: with hyperglycemia Diabetes mellitus mcc insulin use: without medical terminologist use Qualified Code(s): E11.65 - Type 2 diabetes mellitus with hyperglycemia (8) Morbid obesity with BMI of 50.0-59.9, adult Priority: Secondary Status: Chronic - Discharge Medications Prescriptions: Doxycycline 100 mg PO BID #15 capsule Home Medications: Nicotine Patch [Nicoderm] 21 mg TD DAILY #30 patch.[id number] 06/02/17 [Rx] metFORMIN [Glucophage] 500 mg PO BIDWM #60 tablet 06/02/17 [Rx] Doxycycline 100 mg PO BID #15 capsule 06/10/17 [Rx] Allergies/Adverse Reactions: 3 Allergy/AdvReac Type Severity Reaction Status Date / Time Amoxicillin Allergy Hives Verified 04/24/17 07:41 Penicillins Allergy Hives Verified 04/24/17 07:41 Date of admission: 06/08/17 03:42 Primary care physician: Joe Bell MD Consults: 06/08/17 05:21 Consult to Interior Wall Assembler [CONS] Routine Reason for SW Consult: SI, Homeless 06/08/17 12:03 Consult to Respiratory Therapy [CONS] Routine Reason for Consult: Appears to need bipap Call Completed: No 06/09/17 16:56 Consult to Psychiatry [CONS] Routine Consulting Provider: Psychiatry Jaylyn Reason for Consult: Suicidal ideations "I will walk in front of a bus when I leave here" Time Notified: 02:30 Call Completed: Yes Discharging clinician: Juvenal Ferguson Anticipated date of discharge: 06/10/17 - Patient Status Disposition: Home, Self-Care Condition: Fair Functional capacity at discharge: independent ambulation Overall status at discharge: patient is back to baseline - Discharge Instructions Instructions: Depression (DC), Diabetes Mellitus Type 2 in Adults (DC), Chronic Hypertension (DC) Follow Up With: Joe Bell MD [Primary Care Provider] - 06/17/17 1:15 pm Hospital course: Mr. Adams is a 47 year old male with hx of CAD and chronic polysubstance abuse with alcohol and drugs (heroin and cocaine) brought to ED after being found unresponsive in [employer] station parking lot. He was evaluated in ED and required multiple doses of Narcan to remain awake. During his evaluation, the patient made a statement that he would "walked in front of a bus" when he left. He was subsequently admitted. The patient admitted to alcohol abuse this time to do, stating that he has 8 "tall boys" a day, until he was monitored on CIWA protocol. During his stay as an inpatient patient had a few scores that were high enough to warrant Ativan due to nausea, vomiting, headache, tremor. At the time of his initial psychiatric evaluation, the patient was highly sedated and was unable to be evaluated appropriately. He recovered over the course of 2 days at which time psychiatry was able to evaluate and determine that he is no longer risk to himself or others. He now denies that he has any interest in harming himself, and says that he needs to leave the hospital in order to acquire housing, and that he has an appointment between 10:30 and 11: 30 AM. At this time he is stable for discharge. - Time Spent with Patient Total time spent providing and/or coordinating discharge services: - Constitutional Vitals: Temp Pulse Resp BP Pulse Ox 98.3 F 82 20 127/65 97 06/10/17 06:42 06/10/17 06:42 06/10/17 06:42 06/10/17 08:12 06/10/17 08:05 General appearance: Present: cooperative, A&O X 3, morbidly obese Exam: - Cardiovascular Cardiovascular 2+edema in b/l LE edema, no chest pain - Respiratory Respiratory: moderate dyspnea, no hemoptysis, no wheezing, no chest congestion - Gastrointestinal Gastrointestinal: no abdominal pain, no diarrhea, no melena - Genitourinary Genitourinary ROS male: no dysuria, no flank pain, no nocturia - Musculoskeletal Musculoskeletal ROS IM: limited range of motion (L shoulder), stiffness (L shoulder) - Integumentary Integumentary IM: no erythema, no new lesions - Neurological Neurological ROS: no abnormal gait, no abnormal hearing, no confusion, no numbness, no vertigo - Psychiatric Psychiatric: depression, - suicidal ideation - Endocrine Endocrine IM: no cold intolerance, no flushing - Hematologic/Lymphatic Hematologic/Lymphatic: no easy bleeding - Allergic/Immunologic Allergic/Immunologic: no wheezing, no lip swelling <Davi Mendez - Last Filed: 06/10/17 17:11> Date of Encounter: 06/10/17 - Discharge Diagnosis (1) Drug overdose Status: Resolved Qualifiers: Encounter type: subsequent encounter Injury intent: undetermined intent Qualified Code(s): T50.904D - Poisoning by unspecified drugs, medicaments and biological substances, undetermined, subsequent encounter (2) Suicidal ideation Status: Resolved (3) Depression Priority: Secondary Status: Chronic Qualifiers: Depression Type: major depressive disorder Major depression recurrence: recurrent Active/Remission status: currently active Major depression episode severity: moderate Qualified Code(s): F33.1 - Major depressive disorder, recurrent, moderate (4) Polysubstance abuse Priority: Secondary Status: Chronic (5) Alcohol withdrawal Status: Chronic Qualifiers: Complication of substance-induced condition: uncomplicated Qualified Code(s ): F10.230 - Alcohol dependence with withdrawal, uncomplicated (6) Hypertension Priority: Secondary Status: Chronic Qualifiers: Hypertension type: essential hypertension Qualified Code(s): I10 - Essential (primary) hypertension (7) Diabetes mellitus Status: Chronic Qualifiers: Diabetes mellitus type: type 2 Diabetes mellitus complication status: with hyperglycemia Diabetes mellitus mcc insulin use: without medical terminologist use Qualified Code(s): E11.65 - Type 2 diabetes mellitus with hyperglycemia (8) Tobacco abuse Priority: Secondary Status: Chronic (9) Morbid obesity with BMI of 50.0-59.9, adult Status: Chronic Date of admission: 06/08/17 03:42 Primary care physician: Joe Bell MD Consults: 06/08/17 05:21 Consult to Interior Wall Assembler [CONS] Routine Reason for SW Consult: SI, Homeless 06/08/17 12:03 Consult to Respiratory Therapy [CONS] Routine Reason for Consult: Appears to need bipap Call Completed: No 06/09/17 16:56 Consult to Psychiatry [CONS] Routine Consulting Provider: Psychiatry Jaylyn Reason for Consult: Suicidal ideations "I will walk in front of a bus when I leave here" Time Notified: 02:30 Call Completed: Yes Hospital course: Mr. Adams is a 47 year old male - Time Spent with Patient Total time spent providing and/or coordinating discharge services: - Constitutional Vitals: Temp Pulse Resp BP Pulse Ox 98.3 F 82 20 127/65 97 06/10/17 06:42 06/10/17 06:42 06/10/17 06:42 06/10/17 08:12 06/10/17 08:05 - Attending Attestation I examined this patient and my medical decision-making was reviewed with the Resident Physician on 06/10/17. I agree with the documented findings, disposition and treatment plan as described except to the extent set forth below. Mr. Adams has been admitted for drug overdose, alcohol withdrawal and suicidal ideation. He has been seen by psych and cleared for discharge. He is afebrile with stable vitals. He will be discharged. Exam Alert. Comfortable Heart not tachy No wheeze Plan D/C today Outpatient substance abuse treatment. Pt refused flu vaccine.
--- NOTE | 2017-06-10 10:43 | Consult Note ---
Date of Encounter: 06/10/17 Time of Encounter: 09:45 Assessment & Recommendation (1) Suicidal ideation Current visit: Yes Status: Resolved Assessment & Recommendation: Patient made statement to hurt self to be in hospital and not in nursing home as he was homeless. He denies any suicidal ideas or homicidal ideas at present. (2) History of mixed drug abuse Current visit: No Status: Chronic History of Present Illness Requesting Physician: Davi Mendez DO Reason for consult: suicidal ideation History of present illness: Mr. Adams is a 47 year old male consulted today for suicidal ideation. Mr Adams was admitted for evaluation and treatment for possible overdose , and his statement i will walk in front of bus. His tox. screen was positive for cocain, benzodiazepine and barbiturates. Patient was alert and able to give history , as per him he was stupid to say to police that he will walk in front of bus , he was scared to go to nursing home and had no place to stay. he used 10 $ worth heroin , he snorted it as his friend gave him , he took all at one time as his back was hurting, he denied cocain use said not used recently , he is minimizing his drug intake. He denies any psychiatric history or treatment except rehab which he did for 3 days 2-3 weeks ago was referred from [facility] after his alcohol use. he is denying any suicidal thoughts , no h/o suicidal ideas or attempts , no homicidal ideas present or past. denies legal problems. Patient is denying and depressive s/s, no psychosis, no eduardo has some anxiety as was homeless but now has place and is not in danger to self/ others. A/p Substance use disorder. patient will benefit from rehab but he declined at present. dc from psych. services as not in imenent danger to self/others. CC: Davi Mendez DO Past Med Surg Social Fam HX - Past Medical History Medical history: CHF, hypertension, myocardial infarction - Past Psychiatric History Psychiatric history: Reports: no psych history - Past Surgical History Surgical History: no surgical history - Social History Smoking Status: Current every day smoker Smokeless Tobacco Status: No Alcohol use: heavy, recent Drug use: cocaine, opiates, marijuana, IV Drug Use - Family History Father Living Status: Age at : 56 Cause of : Alcoholism Medications & Allergies Nicotine Patch [Nicoderm] 21 mg TD DAILY #30 patch.td24 06/02/17 [Rx] metFORMIN [Glucophage] 500 mg PO BIDWM #60 tablet 06/02/17 [Rx] Doxycycline 100 mg PO BID #15 capsule 06/10/17 [Rx] 3 Allergy/AdvReac Type Severity Reaction Status Date / Time Amoxicillin Allergy Hives Verified 04/24/17 07:41 Penicillins Allergy Hives Verified 04/24/17 07:41 Review of Systems Psychiatric: Reports: anxiety Mental Status Exam Patient orientation: Yes Person, Yes Time, Yes Place Level of alertness: Alert Patient appearance: Appropriate Additional observations: morbidly obese white male. Behavior: calm, cooperative Psychomotor activity: Normal Eye contact: Maintains Eye Contact Mood description: Euthymic/stable Affect description: congruent with mood Speech pattern: Normal rate, Normal rhythm, Normal tone, Coherent Speech volume: Normal Thought process: Intact Thought content: Yes Intact Attention span: Capable of Focused Attention Patient reliability: Reliable Historian Intelligence estimate: Average Judgment: Good Insight: Partial Additional Findings: regarding his substance use. Results - Vital Signs Vital signs: Temp Pulse Resp BP Pulse Ox 98.3 F 82 20 127/65 97 06/10/17 06:42 06/10/17 06:42 06/10/17 06:42 06/10/17 08:12 06/10/17 08:05 - Labs Labs: Laboratory Last Values WBC 10.3 K/mcL (4.3-11.1) 06/09/17 03:22 RBC 3.92 M/mcL (4.19-5.50) L 06/09/17 03:22 Hgb 11.9 g/dL (12.9-16.9) L 06/09/17 03:22 Hct 37.1 % (37.5-50.1) L 06/09/17 03:22 MCV 94.6 fL (83.0-100.0) 06/09/17 03:22 MCH 30.4 pg (28.0-33.3) 06/09/17 03:22 MCHC 32.1 g/dL (31.6-35.5) 06/09/17 03:22 RDW 14.3 % (11.5-14.5) 06/09/17 03:22 Plt Count 204 K/mcL (140-400) 06/09/17 03:22 MPV 10.2 fL (9.4-12.4) 06/09/17 03:22 Immature Gran % 1.2 % (0-4) 06/08/17 01:09 Seg Neutrophils % 80.5 % 06/08/17 01:09 Lymphocytes % 11.2 % 06/08/17 01:09 Monocytes % 6.0 % 06/08/17 01:09 Eosinophils % 0.6 % 06/08/17 01:09 Basophils % 0.5 % 06/08/17 01:09 Neutrophils # 10.3 K/mcL (1.6-8.9) H 06/08/17 01:09 Lymphocytes # 1.4 K/mcL (0.6-4.6) 06/08/17 01:09 Monocytes # 0.8 K/mcL (0.0-1.3) 06/08/17 01:09 Eosinophils # 0.1 K/mcL (0.0-0.6) 06/08/17 01:09 Basophils # 0.1 K/mcL (0.0-0.2) 06/08/17 01:09 Immature Plt Fraction 2.6 % (1.1-6.1) 06/08/17 01:09 ABG pH 7.33 pH Units (7.32-7.45) 06/08/17 11:05 ABG pCO2 61 mmHg (35-45) H 06/08/17 11:05 ABG pO2 73 mmHg (85-104) L 06/08/17 11:05 ABG HCO3 32 mEq/L (21-27) H 06/08/17 11:05 ABG Total CO2 34 mEq/L (20-26) H 06/08/17 11:05 ABG O2 Saturation 93 % (95-98) L 06/08/17 11:05 ABG Base Excess 4.6 mEq/L (-2.0 to 3.0) H 06/08/17 11:05 ABG Hematocrit 38.0 % (35-51) 06/08/17 11:05 Sodium 136 mEq/L (135-148) 06/08/17 11:05 Potassium 3.6 mEq/L (3.5-5.3) 06/08/17 11:05 Glucose 150 mg/dL (60-95) H 06/08/17 11:05 Ionized Calcium 1.19 mmol/L (1.15-1.35) 06/08/17 11:05 Blood Gas Modality NC 06/08/17 11:05 Inspired O2 36.0 % 06/08/17 11:05 Sodium 138 mEq/L (136-145) 06/10/17 06:48 Potassium 3.4 mEq/L (3.5-4.5) L 06/10/17 06:48 Chloride 101 mEq/L (98-109) 06/10/17 06:48 Carbon Dioxide 27 mEq/L (19-29) 06/10/17 06:48 BUN 14 mg/dL (8-26) 06/10/17 06:48 Creatinine 0.81 mg/dL (0.72-1.25) 06/10/17 06:48 Est GFR ( Amer) > 60 (> 60) 06/10/17 06:48 Est GFR (Non-Af Amer) > 60 (> 60) 06/10/17 06:48 BUN/Creatinine Ratio 17 (6-26) 06/10/17 06:48 Glucose 220 mg/dL (70-99) H 06/10/17 06:48 POC Glucose 192 (58-89) H 06/09/17 11:49 Calculated Osmolality 293 (280-300) 06/10/17 06:48 Calcium 8.7 mg/dL (8.6-10.8) 06/10/17 06:48 Magnesium 1.7 mg/dL (1.6-2.6) 06/09/17 03:22 Total Bilirubin 0.2 mg/dL (0.2-1.2) 06/09/17 03:22 AST 19 Units/L (5-34) 06/09/17 03:22 ALT 22 Units/L (0-55) 06/09/17 03:22 Alkaline Phosphatase 69 Units/L (38-126) 06/09/17 03:22 Serum Total Protein 6.4 g/dL (6.0-8.3) 06/09/17 03:22 Albumin 3.0 g/dL (3.5-5.0) L 06/09/17 03:22 Globulin 3.4 g/dL (2.4-3.5) 06/09/17 03:22 Albumin/Globulin Ratio 0.9 (1.1-2.2) L 06/09/17 03:22 Urine Color Yellow (Yellow) 06/08/17 01:09 Urine Clarity Cloudy (Clear) A 06/08/17 01:09 Urine pH 6.5 pH Units (5.0-8.0) 06/08/17 01:09 Ur Specific [place] 1.023 (1.010-1.025) 06/08/17 01:09 Urine Protein 100 mg/dL (Neg-Trace) H 06/08/17 01:09 Urine Glucose (UA) 250 mg/dL (Normal) H 06/08/17 01:09 Urine Ketones Negative mg/dL (Negative) 06/08/17 01:09 Urine Blood Negative (Negative) 06/08/17 01:09 Urine Nitrite Negative (Negative) 06/08/17 01:09 Urine Bilirubin Negative (Negative) 06/08/17 01:09 Urine Urobilinogen Normal mg/dL (Normal) 06/08/17 01:09 Ur Leukocyte Esterase Negative (Negative) 06/08/17 01:09 Urine Microscopic RBC 0-3 per hpf (0-3) 06/08/17 01:09 Urine Microscopic WBC 0-3 per hpf (0-3) 06/08/17 01:09 Ur Squamous Epith Cells Many per lpf (None-Few) H 06/08/17 01:09 Urine Bacteria None Seen per hpf (None-Few) 06/08/17 01:09 Hyaline Casts None Seen per lpf (None-Few) 06/08/17 01:09 Salicylates < 5.0 mg/dL (15-30) L 06/08/17 01:09 Urine Opiates Screen Positive ng/mL (Xrojle=862) H 06/08/17 01:09 Acetaminophen < 1.0 mcg/mL (10-30) L 06/08/17 01:09 Ur Barbiturates Screen Positive ng/mL (Xsnajg=767) H 06/08/17 01:09 Ur Phencyclidine Scrn Negative ng/mL (Cutoff=25) 06/08/17 01:09 Ur Amphetamines Screen Negative ng/mL (Mkilco=2021) 06/08/17 01:09 U Benzodiazepines Scrn Positive ng/mL (Ghgieq=528) H 06/08/17 01:09 Urine Cocaine Screen Positive ng/mL (Cutoff= 300) H 06/08/17 01:09 U Marijuana (THC) Screen Negative ng/mL (Cutoff = 50) 06/08/17 01:09 Ethyl Alcohol < 10 mg/dL (0-10) 06/08/17 01:09 Specimen Rejected Hemolyzed 06/10/17 05:30 Consult Discharge Plan - Plan Instructions: Depression (DC), Diabetes Mellitus Type 2 in Adults (DC), Chronic Hypertension (DC) Referrals: Joe Bell MD [Primary Care Provider] - 06/17/17 1:15 pm Prescriptions: Doxycycline 100 mg PO BID #15 capsule
== END 2017-06-10 10:30 | disposition home or self-care (01) ==
LOC: 2NENU 00:12 → EMEROO 00:12 → 2NENU 05:01
PROVIDERS: ADMIT Hospitalist; ATTEND Internal Medicine

== ENCOUNTER 2018-01-06 02:48 | Inpatient (IN) ==
[2018-01-06 03:37] LABS: Bilirubin,Urine Negative (Negative); Blood,Urine Negative (Negative); Clarity,Urine Clear (Clear); Color,Urine Yellow (Yellow); Glucose,Urine (UA) Normal (Normal); Ketones,Urine Negative (Negative); Leukocyte Esterase,Urine Negative (Negative); Nitrite,Urine Negative (Negative); PH,Urine 6.5 pH Units (5.0-8.0); Protein,Urine Negative (Neg-Trace); Specific Gravity,Urine 1.013 (1.010-1.025); Urobilinogen,Urine Normal (Normal)
[2018-01-06 03:41] LABS: Basophils # 0.1 K/mcL (0.0-0.2); Basophils % 0.7 %; Eosinophils # 0.1 K/mcL (0.0-0.6); Hematocrit 43.3 % (37.5-50.1); Hemoglobin 14.4 g/dL (12.9-16.9); Immature Granulocytes % 0.4 % (0-4); Lymphocytes # 2.2 K/mcL (0.6-4.6); Lymphocytes % 20.7 %; Mean Corpuscular HGB Conc 33.3 g/dL (31.6-35.5); Mean Corpuscular Hemoglobin 30.5 pg (28.0-33.3); Mean Corpuscular Volume 91.7 fL (83.0-100.0); Mean Platelet Volume 10.1 fL (9.4-12.4); Monocytes # 0.8 K/mcL (0.0-1.3); Monocytes % 7.5 %; Neutrophils # 7.3 K/mcL (1.6-8.9); Platelet Count 298 K/mcL (140-400); Red Blood Count 4.72 M/mcL (4.19-5.50); Red Cell Distribution Width 13.9 % (11.5-14.5); Segmented Neutrophils % 69.7 %
[2018-01-06] MEDS ORDERED: *HR* LORazepam 2 MG/ML VIAL IM ONE (03:50)
[2018-01-06 03:57] LABS: Acetaminophen < 10 mcg/mL (10-20)
[2018-01-06 04:02] LABS: Amphetamine Screen,Urine Positive ng/mL (Cutoff=1000); Barbiturate Screen,Urine Positive ng/mL (Cutoff=200); Benzodiazepines Screen,Urine Negative ng/mL (Cutoff=200); Cannabinoid Screen,Urine Negative ng/mL (Cutoff = 50); Cocaine Screen,Urine Positive ng/mL (Cutoff= 300); Opiate Screen,Urine Negative ng/mL (Cutoff=300); Phencyclidine Screen,Urine Negative ng/mL (Cutoff=25)
[2018-01-06 04:07] LABS: Salicylate < 2.5 mg/dL (15.0-30.0)
[2018-01-06] MEDS ORDERED: *HR* LORazepam 2 MG/ML VIAL IVP PRN ×2 (04:19→05:19)
[2018-01-06 04:24] LABS: BUN/Creatinine Ratio 16 (6-26); Blood Urea Nitrogen 13 mg/dL (6-20); Calcium 8.9 mg/dL (8.6-10.3); Carbon Dioxide 21 mEq/L (23-29); Chloride 104 mEq/L (98-107); Ethanol 61 mg/dL (Less than 10); Glucose 275 mg/dL (70-105); Osmolality,Calculated 294 (280-300); Potassium 3.1 mEq/L (3.5-5.1); Sodium 137 mEq/L (136-145); eGFR For African Americans > 60 (> 60); eGFR For Non-African Americans > 60 (> 60)
--- NOTE | 2018-01-06 04:34 | Emergency Department Note ---
Disposition Clinical Impression: Psychosis Alcohol dependence with withdrawal Qualifiers: Complication of substance-induced condition: uncomplicated Qualified Code(s): F10.230 - Alcohol dependence with withdrawal, uncomplicated Disposition: Admitted As Inpatient Condition: Undetermined General Adult HPI - General Chief complaint: ED Psychiatric Symptoms Stated complaint: "1A eval" Time Seen by Provider: 01/06/18 03:42 Source: EMS Mode of arrival: ambulatory Limitations: no limitations Nursing Notes Reviewed: Yes Vital Signs Reviewed: Yes - History of Present Illness HPI Narrative: 27-year-old male presents emergency department for evaluation of mental health. Patient states history of schizophrenia, depression, bipolar, alcoholism, drug use, diabetes, CHF, hypertension. He states he has not had any of his medication for a long time and has been drinking quite a bit. He states last 3 days he has been taking "handfuls of phenobarbital"that are not prescribed to him and drinking just enough to keep off the "shakes". Patient states he is tired of living and having people following him, he knows he is hearing voices that are not real, he sees things that are not real. He states that if he is not drinking he starts getting tremors, sweating, confusion. He also has a history of cocaine, amphetamines. He denies recent illness, or any other physical symptoms. He does state that if he leaves this facility he knows that he will continue to try to harm himself as he is tired of living. He does state true suicidal ideation. Onset (ago): month(s) Pain Severity: similar to prior episodes Consistency: constant, Worsening Improves with: nothing Worsens with: other (Drug use, alcoholism, lack of [facility]) - Related Data Previous Rx's Medication Instructions Recorded Nicotine Patch [Nicoderm] 21 mg TD DAILY #30 patch.td24 06/02/17 metFORMIN [Glucophage] 500 mg PO BIDWM #60 tablet 06/02/17 Doxycycline 100 mg PO BID #15 capsule 06/10/17 Allergies Allergy/AdvReac Type Severity Reaction Status Date / Time Amoxicillin Allergy Hives Verified 04/24/17 07:41 Penicillins Allergy Hives Verified 04/24/17 07:41 quetiapine [From Seroquel] Allergy Hives Verified 01/06/18 03:01 All systems ED: reviewed and negative except as stated. Review of Systems: As Per HPI Past Medical History - Past Medical History Attestation: Yes The following information was validated with the patient. Medical history: Reports: CHF, hypertension, myocardial infarction Surgical history: Reports: no surgical history Psychiatric history: Reports: depression, schizophrenia - Social History Smoking Status: Current every day smoker Smokeless Tobacco Status: No Alcohol use: Reports: heavy, recent Drug use: Reports: cocaine, opiates, marijuana, IV Drug Use Physical Exam - General Limitations: no limitations General appearance: alert, anxious - Head Head exam: atraumatic, normocephalic, normal inspection - ENT ENT exam: mucous membranes moist - Neck Neck exam: Present: normal inspection, full ROM, trachea midline - Chest Chest inspection: Present: normal inspection, symmetric chest wall rise - Respiratory Respiratory exam: Present: normal lung sounds bilaterally - Cardiovascular Cardiovascular exam: Present: regular rate, normal rhythm, normal heart sounds - Neurological Exam Neurological exam: Present: alert, oriented X3 - Psychiatric Psychiatric exam: Present: anxious, homicidal ideation - Skin Skin exam: Present: warm, dry, intact, normal color Course Course Narrative: Morbidly obese male noted with tremors, slightly diaphoretic, staring at corners and rdz, appears to be responding to visual stimuli. Patient is alert and oriented 3, speech is clear. Respirations are easy and even, heart rate regular rhythm, abdomen soft, nondistended. Labs returned without sinus systemic illness, metabolic abnormalities, potassium 3.1. Urine tox screen does show polysubstance abuse with positive methamphetamines, low phenobarbital , benzodiazepines, EtOH at 61. Patient appears to be in withdrawal from polysubstances. During exam he does stop speaking to look up in the corners and states that he hears "them talking but I do not know what they are saying". We will give 2 mg lorazepam for tremors, diaphoresis emesis is most likely withdrawal versus psychosis - Reevaluation(s) Reevaluation #1: Patient increasing tremors, increasing agitation, increasing hallucinations. Initiating CIWA protocol at this time, with a score of 13. We will give another 2 mg of Ativan. Patient will need to be admitted to the medical floor for withdrawals prior to being evaluated by psychiatric services. Plan is to admit hospital services. We will page for hospitalist at this time. Patient is agreeable plan of care. Time: 04:15 Reevaluation #2: Patient with increasing agitation, severe tremors, responding to internal stimuli. We will give 2 mg of Haldol at this time. Hospitalist returns call with agreement to admit patient to hospital services. Time: 05:00 Vital Signs Temperature 97.4 F L 01/06/18 03:01 Pulse Rate 115 01/06/18 03:01 Respiratory Rate 18 01/06/18 03:01 Blood Pressure 144/85 01/06/18 03:01 O2 Sat by Pulse Oximetry 94 01/06/18 03:01 Temperature 97.4 F L 01/06/18 03:01 Pulse Rate 115 01/06/18 03:01 Respiratory Rate 20 01/06/18 05:11 Blood Pressure 125/71 01/06/18 05:11 O2 Sat by Pulse Oximetry 94 01/06/18 03:01 Oxygen Delivery Oxygen Delivery Room Air Medical Decision Making - Lab Data Result diagrams: 01/06/18 03:26 01/06/18 03:26 Lab Results 01/06/18 01/06/18 01/06/18 Range/Units 02:55 02:55 03:22 WBC (4.3-11.1) K/mcL RBC (4.19-5.50) M/mcL Hgb (12.9-16.9) g/dL Hct (37.5-50.1) % MCV (83.0-100.0) fL MCH (28.0-33.3) pg MCHC (31.6-35.5) g/dL RDW (11.5-14.5) % Plt Count (140-400) K/mcL MPV (9.4-12.4) fL Immature Gran % (0-4) % Seg Neutrophils % % Lymphocytes % % Monocytes % % Eosinophils % % Basophils % % Neutrophils # (1.6-8.9) K/mcL Lymphocytes # (0.6-4.6) K/mcL Monocytes # (0.0-1.3) K/mcL Eosinophils # (0.0-0.6) K/mcL Basophils # (0.0-0.2) K/mcL Sodium (136-145) mEq/L Potassium (3.5-5.1) mEq/L Chloride (98-107) mEq/L Carbon Dioxide (23-29) mEq/L BUN (6-20) mg/dL Creatinine (0.70-1.30) mg/dL Est GFR ( Amer) (> 60) Est GFR (Non-Af Amer) (> 60) BUN/Creatinine Ratio (6-26) Glucose (70-105) mg/dL POC Glucose (70-99) mg/dL Calculated Osmolality (280-300) Calcium (8.6-10.3) mg/dL Urine Color Yellow (Yellow) Urine Clarity Clear (Clear) Urine pH 6.5 (5.0-8.0) pH Units Ur Specific [place] 1.013 (1.010-1.025) Urine Protein Negative (Neg-Trace) mg/dL Urine Glucose (UA) Normal (Normal) mg/dL Urine Ketones Negative (Negative) mg/dL Urine Blood Negative (Negative) Urine Nitrite Negative (Negative) Urine Bilirubin Negative (Negative) Urine Urobilinogen Normal (Normal) mg/dL Ur Leukocyte Esterase Negative (Negative) Salicylates (15.0-30.0) mg/dL Urine Opiates Screen Negative (Oswmwg=548) ng/mL Acetaminophen (10-20) mcg/mL Ur Barbiturates Screen Positive H (Lykgxz=348) ng/mL Ur Phencyclidine Scrn Negative (Cutoff=25) ng/mL Ur Amphetamines Screen Positive H (Ogtayr=6849) ng/mL Phenobarbital 1 L (15-40) mcg/mL U Benzodiazepines Scrn Negative (Xxwucm=140) ng/mL Urine Cocaine Screen Positive H (Cutoff= 300) ng/mL U Marijuana (THC) Screen Negative (Cutoff = 50) ng/mL Ethyl Alcohol (Less than 10) mg/dL 01/06/18 01/06/18 01/06/18 Range/Units 03:26 03:26 04:08 WBC 10.5 (4.3-11.1) K/mcL RBC 4.72 (4.19-5.50) M/mcL Hgb 14.4 (12.9-16.9) g/dL Hct 43.3 (37.5-50.1) % MCV 91.7 (83.0-100.0) fL MCH 30.5 (28.0-33.3) pg MCHC 33.3 (31.6-35.5) g/dL RDW 13.9 (11.5-14.5) % Plt Count 298 (140-400) K/mcL MPV 10.1 (9.4-12.4) fL Immature Gran % 0.4 (0-4) % Seg Neutrophils % 69.7 % Lymphocytes % 20.7 % Monocytes % 7.5 % Eosinophils % 1.0 % Basophils % 0.7 % Neutrophils # 7.3 (1.6-8.9) K/mcL Lymphocytes # 2.2 (0.6-4.6) K/mcL Monocytes # 0.8 (0.0-1.3) K/mcL Eosinophils # 0.1 (0.0-0.6) K/mcL Basophils # 0.1 (0.0-0.2) K/mcL Sodium 137 (136-145) mEq/L Potassium 3.1 L (3.5-5.1) mEq/L Chloride 104 (98-107) mEq/L Carbon Dioxide 21 L (23-29) mEq/L BUN 13 (6-20) mg/dL Creatinine 0.83 (0.70-1.30) mg/dL Est GFR ( Amer) > 60 (> 60) Est GFR (Non-Af Amer) > 60 (> 60) BUN/Creatinine Ratio 16 (6-26) Glucose 275 H (70-105) mg/dL POC Glucose 206 H (70-99) mg/dL Calculated Osmolality 294 (280-300) Calcium 8.9 (8.6-10.3) mg/dL Urine Color (Yellow) Urine Clarity (Clear) Urine pH (5.0-8.0) pH Units Ur Specific [place] (1.010-1.025) Urine Protein (Neg-Trace) mg/dL Urine Glucose (UA) (Normal) mg/dL Urine Ketones (Negative) mg/dL Urine Blood (Negative) Urine Nitrite (Negative) Urine Bilirubin (Negative) Urine Urobilinogen (Normal) mg/dL Ur Leukocyte Esterase (Negative) Salicylates < 2.5 L (15.0-30.0) mg/dL Urine Opiates Screen (Lleibc=896) ng/mL Acetaminophen < 10 L (10-20) mcg/mL Ur Barbiturates Screen (Ibkadx=299) ng/mL Ur Phencyclidine Scrn (Cutoff=25) ng/mL Ur Amphetamines Screen (Sjscsi=7416) ng/mL Phenobarbital (15-40) mcg/mL U Benzodiazepines Scrn (Vyvakz=224) ng/mL Urine Cocaine Screen (Cutoff= 300) ng/mL U Marijuana (THC) Screen (Cutoff = 50) ng/mL Ethyl Alcohol 61 H (Less than 10) mg/dL
[2018-01-06] MEDS: *HR* LORazepam 2 MG/ML VIAL IVP PRN ×3 (04:40→12:15)
[2018-01-06] MEDS ORDERED: Haloperidol Lactate 5 MG/ML VIAL IVP ONE (04:43)
--- NOTE | 2018-01-06 05:06 | Emergency Department Note ---
Disposition Clinical Impression: Alcohol dependence with withdrawal Qualifiers: Complication of substance-induced condition: uncomplicated Qualified Code(s): F10.230 - Alcohol dependence with withdrawal, uncomplicated Disposition: Admitted As Inpatient General Adult [facility] - General Chief complaint: ED Psychiatric Symptoms Stated complaint: "1A eval" Time Seen by Provider: 01/06/18 03:42 Source: EMS Mode of arrival: ambulatory Limitations: no limitations - History of Present Illness Pain Scale: 7 Improves with: nothing Worsens with: other (Drug use, alcoholism, lack of [facility] medications) - Related Data Previous Rx's Medication Instructions Recorded Nicotine Patch [Nicoderm] 21 mg TD DAILY #30 patch.td24 06/02/17 metFORMIN [Glucophage] 500 mg PO BIDWM #60 tablet 06/02/17 Doxycycline 100 mg PO BID #15 capsule 06/10/17 Allergies Allergy/AdvReac Type Severity Reaction Status Date / Time Amoxicillin Allergy Hives Verified 04/24/17 07:41 Penicillins Allergy Hives Verified 04/24/17 07:41 quetiapine [From Seroquel] Allergy Hives Verified 01/06/18 03:01 Past Medical History - Past Medical History Medical history: Reports: CHF, hypertension, myocardial infarction Surgical history: Reports: no surgical history Psychiatric history: Reports: depression, schizophrenia - Social History Smoking Status: Current every day smoker Smokeless Tobacco Status: No Alcohol use: Reports: heavy, recent Drug use: Reports: cocaine, opiates, marijuana, IV Drug Use Physical Exam - General Limitations: no limitations General appearance: alert, anxious Course Vital Signs Temperature 97.4 F L 01/06/18 03:01 Pulse Rate 115 01/06/18 03:01 Respiratory Rate 18 01/06/18 03:01 Blood Pressure 144/85 01/06/18 03:01 O2 Sat by Pulse Oximetry 94 01/06/18 03:01 Temperature 97.4 F L 01/06/18 03:01 Pulse Rate 115 01/06/18 03:01 Respiratory Rate 18 01/06/18 03:01 Blood Pressure 144/85 01/06/18 03:01 O2 Sat by Pulse Oximetry 94 01/06/18 03:01 Oxygen Delivery Oxygen Delivery Room Air Medical Decision Making - Lab Data Result diagrams: 01/06/18 03:26 01/06/18 03:26 Lab Results 01/06/18 01/06/18 01/06/18 Range/Units 02:55 02:55 03:22 WBC (4.3-11.1) K/mcL RBC (4.19-5.50) M/mcL Hgb (12.9-16.9) g/dL Hct (37.5-50.1) % MCV (83.0-100.0) fL MCH (28.0-33.3) pg MCHC (31.6-35.5) g/dL RDW (11.5-14.5) % Plt Count (140-400) K/mcL MPV (9.4-12.4) fL Immature Gran % (0-4) % Seg Neutrophils % % Lymphocytes % % Monocytes % % Eosinophils % % Basophils % % Neutrophils # (1.6-8.9) K/mcL Lymphocytes # (0.6-4.6) K/mcL Monocytes # (0.0-1.3) K/mcL Eosinophils # (0.0-0.6) K/mcL Basophils # (0.0-0.2) K/mcL Sodium (136-145) mEq/L Potassium (3.5-5.1) mEq/L Chloride (98-107) mEq/L Carbon Dioxide (23-29) mEq/L BUN (6-20) mg/dL Creatinine (0.70-1.30) mg/dL Est GFR ( Amer) (> 60) Est GFR (Non-Af Amer) (> 60) BUN/Creatinine Ratio (6-26) Glucose (70-105) mg/dL POC Glucose (70-99) mg/dL Calculated Osmolality (280-300) Calcium (8.6-10.3) mg/dL Urine Color Yellow (Yellow) Urine Clarity Clear (Clear) Urine pH 6.5 (5.0-8.0) pH Units Ur Specific [place] 1.013 (1.010-1.025) Urine Protein Negative (Neg-Trace) mg/dL Urine Glucose (UA) Normal (Normal) mg/dL Urine Ketones Negative (Negative) mg/dL Urine Blood Negative (Negative) Urine Nitrite Negative (Negative) Urine Bilirubin Negative (Negative) Urine Urobilinogen Normal (Normal) mg/dL Ur Leukocyte Esterase Negative (Negative) Salicylates (15.0-30.0) mg/dL Urine Opiates Screen Negative (Jbakkl=835) ng/mL Acetaminophen (10-20) mcg/mL Ur Barbiturates Screen Positive H (Wuxfsg=909) ng/mL Ur Phencyclidine Scrn Negative (Cutoff=25) ng/mL Ur Amphetamines Screen Positive H (Yppryc=6573) ng/mL Phenobarbital 1 L (15-40) mcg/mL U Benzodiazepines Scrn Negative (Ygrfaj=070) ng/mL Urine Cocaine Screen Positive H (Cutoff= 300) ng/mL U Marijuana (THC) Screen Negative (Cutoff = 50) ng/mL Ethyl Alcohol (Less than 10) mg/dL 01/06/18 01/06/18 01/06/18 Range/Units 03:26 03:26 04:08 WBC 10.5 (4.3-11.1) K/mcL RBC 4.72 (4.19-5.50) M/mcL Hgb 14.4 (12.9-16.9) g/dL Hct 43.3 (37.5-50.1) % MCV 91.7 (83.0-100.0) fL MCH 30.5 (28.0-33.3) pg MCHC 33.3 (31.6-35.5) g/dL RDW 13.9 (11.5-14.5) % Plt Count 298 (140-400) K/mcL MPV 10.1 (9.4-12.4) fL Immature Gran % 0.4 (0-4) % Seg Neutrophils % 69.7 % Lymphocytes % 20.7 % Monocytes % 7.5 % Eosinophils % 1.0 % Basophils % 0.7 % Neutrophils # 7.3 (1.6-8.9) K/mcL Lymphocytes # 2.2 (0.6-4.6) K/mcL Monocytes # 0.8 (0.0-1.3) K/mcL Eosinophils # 0.1 (0.0-0.6) K/mcL Basophils # 0.1 (0.0-0.2) K/mcL Sodium 137 (136-145) mEq/L Potassium 3.1 L (3.5-5.1) mEq/L Chloride 104 (98-107) mEq/L Carbon Dioxide 21 L (23-29) mEq/L BUN 13 (6-20) mg/dL Creatinine 0.83 (0.70-1.30) mg/dL Est GFR ( Amer) > 60 (> 60) Est GFR (Non-Af Amer) > 60 (> 60) BUN/Creatinine Ratio 16 (6-26) Glucose 275 H (70-105) mg/dL POC Glucose 206 H (70-99) mg/dL Calculated Osmolality 294 (280-300) Calcium 8.9 (8.6-10.3) mg/dL Urine Color (Yellow) Urine Clarity (Clear) Urine pH (5.0-8.0) pH Units Ur Specific [place] (1.010-1.025) Urine Protein (Neg-Trace) mg/dL Urine Glucose (UA) (Normal) mg/dL Urine Ketones (Negative) mg/dL Urine Blood (Negative) Urine Nitrite (Negative) Urine Bilirubin (Negative) Urine Urobilinogen (Normal) mg/dL Ur Leukocyte Esterase (Negative) Salicylates < 2.5 L (15.0-30.0) mg/dL Urine Opiates Screen (Tjgngu=695) ng/mL Acetaminophen < 10 L (10-20) mcg/mL Ur Barbiturates Screen (Uwgqjj=611) ng/mL Ur Phencyclidine Scrn (Cutoff=25) ng/mL Ur Amphetamines Screen (Ttlfrh=0633) ng/mL Phenobarbital (15-40) mcg/mL U Benzodiazepines Scrn (Zbdyxw=754) ng/mL Urine Cocaine Screen (Cutoff= 300) ng/mL U Marijuana (THC) Screen (Cutoff = 50) ng/mL Ethyl Alcohol 61 H (Less than 10) mg/dL Attestation Statement - Attestation Attestation: For this encounter, I have reviewed the PRESS DEPARTMENT MANAGER or PA documentation, treatment plan, and medical decision making; and I have had face to face time with this patient. 47 year old male who is Suidicidal tonight and is a chronic alcoholic and states that he has jacques taking phenobarbital at home to subside DTs comes in today with worsening symptoms an appers to be shaking . WE will admit to [facility]ram for medical clearance and alfonso started HAYDEN hinson,
[2018-01-06] MEDS ORDERED: Naloxone 0.4 MG/ML INJ IVP PRN (05:14)
[2018-01-06] MEDS ORDERED: Dextrose Gel 15 GM/37.5 ML TUBE PO PRN ×2 (05:21)
[2018-01-06] MEDS ORDERED: D5% in Water 1,000 ML IVC PRN (05:21)
[2018-01-06] MEDS ORDERED: *HR* Dextrose 50 % in Water (Syg) 50 ML SYRINGE IVP PRN (05:21)
[2018-01-06] MEDS ORDERED: *HR* LORazepam 2 MG/ML VIAL IVP ONE (05:28)
--- NOTE | 2018-01-06 05:31 | Internal Med History&Physical ---
Date of Encounter: 01/06/18 Time of Encounter: 04:30 Internal Medicine - H&P: HPI Chief complaint: Alcohol withdrawal Admitted From: Home Plans for Post Hospital Care: Home History of present illness: Mr. Adams is a 47 year old male presented to ER for concern of alcohol withdrawal. Past medical history is significant for diabetes, hypertension, CHF , alcoholism, multiple drug abuse, schizophrenia, depression. Patient said he drinks every day and last drink was yesterday morning. Patient developed diaphoresis, shaking, mild nausea, headache over the weekend. Patient also has history of multiple drug abuse. Patient states hallucination. Patient also expressed suicidal ideas and said he has a plan. Patient was considered alcohol withdrawal and was admitted for further management. Past Med Surg Social Fam HX - Past Medical History Medical history: CHF, hypertension, myocardial infarction Psychiatric history: depression, schizophrenia - Past Surgical History Surgical History: no surgical history - Social History Smoking Status: Current every day smoker Smokeless Tobacco Status: No Alcohol use: heavy, recent Drug use: cocaine, opiates, marijuana, IV Drug Use - Family History Father Living Status: Internal Medicine - H&P: Meds Nicotine Patch [Nicoderm] 21 mg TD DAILY #30 patch.td24 06/02/17 [Rx] metFORMIN [Glucophage] 500 mg PO BIDWM #60 tablet 06/02/17 [Rx] Doxycycline 100 mg PO BID #15 capsule 06/10/17 [Rx] 3 Allergy/AdvReac Type Severity Reaction Status Date / Time Amoxicillin Allergy Hives Verified 04/24/17 07:41 Penicillins Allergy Hives Verified 04/24/17 07:41 quetiapine [From Seroquel] Allergy Hives Verified 01/06/18 03:01 All Systems PM: A 10-system review of systems was performed and is negative for pertinent findings except as documented above in the HPI. - Constitutional Vitals: Temp Pulse Resp BP Pulse Ox 97.4 F L 115 20 125/71 94 01/06/18 03:01 01/06/18 03:01 01/06/18 05:11 01/06/18 05:11 01/06/18 03:01 General appearance: Present: mild distress, A&O X 3, answers questions appropriately - Head Head exam: Present: atraumatic, normocephalic - Eye Eye exam: Present: PERRL, conjuntiva pink, sclera anicteric Pupils: Present: PERRL - Neck Neck exam general surgery: Present: supple, trachea midline. Absent: lymphadenopathy - Respiratory Respiratory exam: Present: CTAB. Absent: accessory muscle use, rales, rhonchi, wheezes - Cardiovascular Cardiovascular exam: Present: RRR, +S1, +S2, tachycardia. Absent: diastolic murmur, gallop, rubs, systolic murmur - GI/Abdominal GI/Abdominal exam: Present: normal bowel sounds, soft, no peritoneal signs. Absent: distended, tenderness - Extremities Exam Extremities exam: Present: warm, radial pulses palpable and symmetrical. Absent : calf tenderness, cyanotic, pedal edema - Neurological Exam Neurological exam: Present: CN II-XII intact, oriented X3, no focal deficits. Absent: pronater drift, facial droop, speech deficit - Skin Skin exam: Present: dry, intact Internal Med - H&P Results - Labs CBC & Chem 7: 01/06/18 03:26 01/06/18 03:26 - Assessment and plan (1) Suicidal ideation Current Visit: No Status: Resolved Assessment and plan: Patient has expressed suicidal idea. - Place patient on one-to-one sitter - Suicide precaution - Consul psychiatry (2) Alcohol withdrawal Current Visit: No Status: Chronic Assessment and plan: Patient has shaking, diaphoresis, tachycardia, nausea, headache, hallucination. History of alcoholism with heavy alcohol use. Patient also has multiple other substance use. He has symptoms of withdrawal, most likely alcohol withdrawal. - Place patient on CIWA protocol, librium 50mg po tid for withdrawal prophylaxis. - Closely monitor patient in telemetry Qualifiers: Complication of substance-induced condition: uncomplicated Qualified Code(s ): F10.230 - Alcohol dependence with withdrawal, uncomplicated (3) Diabetes mellitus type 2 in obese Current Visit: No Status: Acute Assessment and plan: Place patient on sliding scale insulin coverage (4) Polysubstance abuse Current Visit: No Status: Chronic Assessment and plan: Urine toxicity shows positive for barbiturate, amphetamine, and cocaine. Closely monitor patient for withdrawal symptoms. Treat patient symptomatically. printing worker supervisor consult. (5) Morbid obesity with BMI of 50.0-59.9, adult Current Visit: No Status: Chronic Assessment and plan: Need the lifestyle modification (6) Schizophrenia Current Visit: Yes Status: Acute Assessment and plan: We will consult psychiatry for further management. Qualifiers: Schizophrenia type: unspecified Qualified Code(s): F20.9 - Schizophrenia, unspecified (7) DVT prophylaxis Current Visit: No Status: Acute Assessment and plan: Heparin subcutaneously. EPCD - Time Spent With Patient Total time spent is greater than 50% in coordination of care (as documented) at patient's floor/unit and/or counseling patient: 40 min Greater than 35 minutes
[2018-01-06] MEDS ORDERED: *HR* Heparin 5,000 UNIT/ML VIAL SQ SCH (06:00)
[2018-01-06] MEDS: Insulin LISPRO 300 UNITS/3 ML VIAL SQ SCH ×2 (07:44→12:52)
[2018-01-06] MEDS ORDERED: Nicotine 21 MG PATCH.TD24 TD SCH (09:00)
[2018-01-06 11:02] VITALS: BP 137/86
--- NOTE | 2018-01-06 13:10 | Event Note ---
Date of Encounter: 01/06/18 Time of Encounter: 11:45 Patient complains of continued anxiety and tremors and symptoms of alcohol withdrawal. We will place him on oral Librium in addition to intravenous Ativan per [facility] protocol. One-to-one sitter at bedside. Suicide precautions. Psychiatry consulted for evaluation.
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
--- NOTE | 2018-01-06 14:43 | Event Note ---
Date of Encounter: 01/06/18 Time of Encounter: 14:42 Patient was evaluated by psychiatry and was found to be not having any suicidal ideation actively. One-to-one sitter was discontinued. Patient then decided to leave the hospital AMA. He understands that he is going through alcohol withdrawal and still needs treatment for it. He understands the risks. He still wishes to leave AMA.
[2018-01-06] MEDS ORDERED: Thiamine (B-1) 100 MG, Folic Acid 1 MG, MVI, adult with vitamin K 10 ML in 0.9 % Sodi... IVPB SCH (18:00)
[2018-01-06] MEDS ORDERED: Insulin LISPRO 300 UNITS/3 ML VIAL SQ SCH (21:00)
== END 2018-01-06 14:37 | disposition left against medical advice (07) | DRG 894 ==
LOC: 3BNU 02:48 → EMEROO 02:48 → 2NNU 05:13 → SUATTDRO 05:14 → 2NNU 05:37
PROVIDERS: ADMIT Internal Medicine; ATTEND Internal Medicine

== ENCOUNTER 2018-01-06 23:39 | Observation (INO) ==
[2018-01-06] MEDS ORDERED: 0.9 % Sodium Chloride 1,000 ML IVC ONE (23:50)
--- NOTE | 2018-01-07 00:03 | Emergency Department Note ---
Disposition Clinical Impression: Suicidal ideation, PTSD (post-traumatic stress disorder), Polysubstance abuse Pulmonary edema Qualifiers: Chronicity: acute Qualified Code(s): J81.0 - Acute pulmonary edema Disposition: Admitted As Inpatient Condition: Good Time of Disposition: 02:49 Psych HPI - General Chief Complaint: ED Psychiatric Symptoms Stated Complaint: suicide Time Seen by Provider: 01/06/18 23:50 Source: EMS Nursing Notes Reviewed: Yes Vital Signs Reviewed: Yes - History of Present Illness Pt complaint: suicidal ideation Onset (ago): year(s) History of similar episodes: Yes Improves with: none Worsens with: none Context: recent alcohol abuse, recent drug abuse, not taking psychiatric medications Alleged intoxication: Yes Associated Psychiatric Symptoms: depression, suicidal ideation, auditory hallucinations Associated symptoms: Reports: headache, nausea, vomiting Traumatic symptoms: denies traumatic injury Treatments prior to arrival: none Self harm or harm to others: admits thoughts of self harm - Related Data Home Medications Medication Instructions Recorded Confirmed Amlodipine Besylate 10 mg PO DAILY 01/06/18 01/07/18 Gabapentin [Neurontin] 600 mg PO QID 01/06/18 01/07/18 Lisinopril [Zestril] 40 mg PO DAILY 01/06/18 01/07/18 Allergies Allergy/AdvReac Type Severity Reaction Status Date / Time Amoxicillin Allergy Hives Verified 04/24/17 07:41 Penicillins Allergy Hives Verified 04/24/17 07:41 quetiapine [From Seroquel] Allergy Hives Verified 01/06/18 03:01 All systems ED: reviewed and negative except as stated. Review of Systems: As Per HPI Constitutional: Denies: fever, chills, weakness Eyes: Denies: vision change ENT ED: Denies: throat pain Cardiovascular: Reports: chest pain. Denies: palpitations, dyspnea on exertion Respiratory: Denies: cough, dyspnea Gastrointestinal: Denies: abdominal pain, nausea, vomiting Genitourinary: Denies: dysuria Musculoskeletal: Denies: back pain Integumentary: Denies: rash Neurological: Denies: headache Psychiatric: Denies: anxiety Endocrine: Denies: fatigue Hematological/Lymphatic: Denies: easy bleeding Allergic/Immunologic: Denies: facial swelling Past Medical History - Past Medical History Medical history: Reports: CHF, hypertension, myocardial infarction Surgical history: Reports: no surgical history Psychiatric history: Reports: anxiety, depression, previous psychiatric hospitalization - Social History Smoking Status: Current every day smoker Smokeless Tobacco Status: No Alcohol use: Reports: heavy, recent Drug use: Reports: cocaine, opiates, marijuana, methamphetamine, IV Drug Use Physical Exam - General Limitations: no limitations General appearance: alert, in no apparent distress, appears intoxicated - Head Head exam: atraumatic, normocephalic - Eye Eye exam: Present: EOMI. Absent: conjunctival injection - ENT ENT exam: normal oropharynx, mucous membranes moist - Neck Neck exam: Present: normal inspection, thyromegaly - Chest Chest inspection: Present: normal inspection, symmetric chest wall rise - Respiratory Respiratory exam: Present: normal lung sounds bilaterally. Absent: respiratory distress, wheezes, stridor - Cardiovascular Cardiovascular exam: Present: regular rate, normal rhythm - Abdominal Exam Abdominal exam: Present: soft, Non-Tender - Extremities Exam Extremities exam: Present: normal inspection, full ROM, normal capillary refill - Back Exam Back exam: Present: full ROM - Neurological Exam Neurological exam: Present: alert - Psychiatric Psychiatric exam: Present: normal affect, normal mood - Skin Skin exam: Present: warm, dry, intact, normal color. Absent: rash, cyanosis, diaphoresis Course Course Narrative: 47-year-old male presents with reported suicidal ideation, alcohol and drug use. Patient has known history of diabetes, hypertension, CHF, alcoholism, multiple drug abuse, depression and anxiety. Patient tells me he has thoughts of hurting himself because "I am a failure". He mentions he feels that he is a failure is he decided to go home yesterday from the hospital where he was being treated for his substance abuse. Today he mentions he has been drinking, he attempted 3 lines in mouth, and had been taking his prescribed phenobarbital. I asked him why he left the hospital earlier he said he felt better after talking to his girlfriend. However upon getting home she encouraged him to use. He mentions he last used approximately 8 hours prior to arrival. He mentions he has some nausea and vomiting some mild chest pain or denies any shortness of breath, back pain. - Reevaluation(s) Reevaluation #1: At this time patient's lab work is still pending. He is resting asleep and his exam bed. Chest x-ray shows pulmonary edema. BNP within normal limits. Vitals within normal limits. Due to patient's psychiatric history, and abuse, we will plan for admission. Discussed patient with Dr. Hernandez, who agreed to see patient, and for decision to admit for detox, SI, and pulmonary edema. Time: 01:21 Reevaluation #2: Patient's chest x-ray CT scan, show evidence of pulmonary edema, possible pulmonary hypertension. His vitals remained stable. He does appear anxious. He is responding to IV Ativan here. Patient was discussed with hospitalist Dr. Ochoa who agreed to accept patient. Time: 02:47 Vital Signs Temperature 98.0 F 01/06/18 23:40 Pulse Rate 108 01/06/18 23:40 Respiratory Rate 18 01/06/18 23:40 Blood Pressure 134/82 01/06/18 23:40 O2 Sat by Pulse Oximetry 94 01/06/18 23:40 Temperature 97.4 F L 01/07/18 03:50 Pulse Rate 94 01/07/18 03:50 Respiratory Rate 16 01/07/18 03:50 Blood Pressure 93/60 01/07/18 03:50 O2 Sat by Pulse Oximetry 98 01/07/18 04:50 Oxygen Delivery Oxygen Delivery Room Air Psych - Lab Data Result diagrams: 01/07/18 00:02 01/07/18 01:04 Lab Results 01/06/18 01/06/18 01/07/18 Range/Units 23:47 23:47 00:02 WBC 9.2 (4.3-11.1) K/mcL RBC 5.07 (4.19-5.50) M/mcL Hgb 15.4 (12.9-16.9) g/dL Hct 45.4 (37.5-50.1) % MCV 89.5 (83.0-100.0) fL MCH 30.4 (28.0-33.3) pg MCHC 33.9 (31.6-35.5) g/dL RDW 13.9 (11.5-14.5) % Plt Count 315 (140-400) K/mcL MPV 9.8 (9.4-12.4) fL Immature Gran % 0.5 (0-4) % Seg Neutrophils % 62.1 % Lymphocytes % 26.2 % Monocytes % 8.5 % Eosinophils % 1.5 % Basophils % 1.2 % Neutrophils # 5.7 (1.6-8.9) K/mcL Lymphocytes # 2.4 (0.6-4.6) K/mcL Monocytes # 0.8 (0.0-1.3) K/mcL Eosinophils # 0.1 (0.0-0.6) K/mcL Basophils # 0.1 (0.0-0.2) K/mcL Sodium Potassium Chloride Carbon Dioxide BUN Creatinine Est GFR ( Amer) Est GFR (Non-Af Amer) BUN/Creatinine Ratio Glucose Calculated Osmolality Calcium Total Bilirubin Direct Bilirubin Indirect Bilirubin AST ALT Alkaline Phosphatase Troponin I (< 0.04) ng/mL B-Natriuretic Peptide (Less than 100) pg/mL Serum Total Protein Albumin Globulin Albumin/Globulin Ratio TSH (0.340-5.600) mcIU/mL Urine Color Yellow (Yellow) Urine Clarity Clear (Clear) Urine pH 6.0 (5.0-8.0) pH Units Ur Specific [place] 1.013 (1.010-1.025) Urine Protein Negative (Neg-Trace) mg/dL Urine Glucose (UA) Normal (Normal) mg/dL Urine Ketones Negative (Negative) mg/dL Urine Blood Negative (Negative) Urine Nitrite Negative (Negative) Urine Bilirubin Negative (Negative) Urine Urobilinogen Normal (Normal) mg/dL Ur Leukocyte Esterase Negative (Negative) Salicylates Urine Opiates Screen Negative (Yogbso=416) ng/mL Acetaminophen (10-20) mcg/mL Ur Barbiturates Screen Positive H (Vaiknn=406) ng/mL Ur Phencyclidine Scrn Negative (Cutoff=25) ng/mL Ur Amphetamines Screen Positive H (Ekfytg=8130) ng/mL U Benzodiazepines Scrn Positive H (Tokqif=062) ng/mL Urine Cocaine Screen Positive H (Cutoff= 300) ng/mL U Marijuana (THC) Screen Negative (Cutoff = 50) ng/mL Ethyl Alcohol Specimen Rejected 01/07/18 01/07/18 01/07/18 Range/Units 00:02 00:02 00:02 WBC (4.3-11.1) K/mcL RBC (4.19-5.50) M/mcL Hgb (12.9-16.9) g/dL Hct (37.5-50.1) % MCV (83.0-100.0) fL MCH (28.0-33.3) pg MCHC (31.6-35.5) g/dL RDW (11.5-14.5) % Plt Count (140-400) K/mcL MPV (9.4-12.4) fL Immature Gran % (0-4) % Seg Neutrophils % % Lymphocytes % % Monocytes % % Eosinophils % % Basophils % % Neutrophils # (1.6-8.9) K/mcL Lymphocytes # (0.6-4.6) K/mcL Monocytes # (0.0-1.3) K/mcL Eosinophils # (0.0-0.6) K/mcL Basophils # (0.0-0.2) K/mcL Sodium Cancelled Potassium Cancelled Chloride Cancelled Carbon Dioxide Cancelled BUN Cancelled Creatinine Cancelled Est GFR ( Amer) Cancelled Est GFR (Non-Af Amer) Cancelled BUN/Creatinine Ratio Cancelled Glucose Cancelled Calculated Osmolality Cancelled Calcium Cancelled Total Bilirubin Cancelled Direct Bilirubin Cancelled Indirect Bilirubin Cancelled AST Cancelled ALT Cancelled Alkaline Phosphatase Cancelled Troponin I (< 0.04) ng/mL B-Natriuretic Peptide 16 (Less than 100) pg/mL Serum Total Protein Cancelled Albumin Cancelled Globulin Cancelled Albumin/Globulin Ratio Cancelled TSH 1.520 (0.340-5.600) mcIU/mL Urine Color (Yellow) Urine Clarity (Clear) Urine pH (5.0-8.0) pH Units Ur Specific [place] (1.010-1.025) Urine Protein (Neg-Trace) mg/dL Urine Glucose (UA) (Normal) mg/dL Urine Ketones (Negative) mg/dL Urine Blood (Negative) Urine Nitrite (Negative) Urine Bilirubin (Negative) Urine Urobilinogen (Normal) mg/dL Ur Leukocyte Esterase (Negative) Salicylates Cancelled Urine Opiates Screen (Rqhtry=454) ng/mL Acetaminophen < 10 L (10-20) mcg/mL Ur Barbiturates Screen (Nrqpsm=001) ng/mL Ur Phencyclidine Scrn (Cutoff=25) ng/mL Ur Amphetamines Screen (Lvonnk=3291) ng/mL U Benzodiazepines Scrn (Hugwwt=240) ng/mL Urine Cocaine Screen (Cutoff= 300) ng/mL U Marijuana (THC) Screen (Cutoff = 50) ng/mL Ethyl Alcohol Cancelled Specimen Rejected Hemolyzed 01/07/18 01/07/18 Range/Units 01:04 01:05 WBC (4.3-11.1) K/mcL RBC (4.19-5.50) M/mcL Hgb (12.9-16.9) g/dL Hct (37.5-50.1) % MCV (83.0-100.0) fL MCH (28.0-33.3) pg MCHC (31.6-35.5) g/dL RDW (11.5-14.5) % Plt Count (140-400) K/mcL MPV (9.4-12.4) fL Immature Gran % (0-4) % Seg Neutrophils % % Lymphocytes % % Monocytes % % Eosinophils % % Basophils % % Neutrophils # (1.6-8.9) K/mcL Lymphocytes # (0.6-4.6) K/mcL Monocytes # (0.0-1.3) K/mcL Eosinophils # (0.0-0.6) K/mcL Basophils # (0.0-0.2) K/mcL Sodium 140 Potassium 3.2 L Chloride 106 Carbon Dioxide 22 L BUN 11 Creatinine 1.17 Est GFR ( Amer) > 60 Est GFR (Non-Af Amer) > 60 BUN/Creatinine Ratio 9 Glucose 143 H Calculated Osmolality 292 Calcium 9.5 Total Bilirubin 0.4 Direct Bilirubin 0.1 Indirect Bilirubin 0.3 AST 40 H ALT 47 Alkaline Phosphatase 70 Troponin I < 0.03 (< 0.04) ng/mL B-Natriuretic Peptide 19 (Less than 100) pg/mL Serum Total Protein 7.7 Albumin 4.1 Globulin 3.6 H Albumin/Globulin Ratio 1.1 TSH (0.340-5.600) mcIU/mL Urine Color (Yellow) Urine Clarity (Clear) Urine pH (5.0-8.0) pH Units Ur Specific [place] (1.010-1.025) Urine Protein (Neg-Trace) mg/dL Urine Glucose (UA) (Normal) mg/dL Urine Ketones (Negative) mg/dL Urine Blood (Negative) Urine Nitrite (Negative) Urine Bilirubin (Negative) Urine Urobilinogen (Normal) mg/dL Ur Leukocyte Esterase (Negative) Salicylates < 2.5 L Urine Opiates Screen (Sszjis=019) ng/mL Acetaminophen (10-20) mcg/mL Ur Barbiturates Screen (Nqzkkv=183) ng/mL Ur Phencyclidine Scrn (Cutoff=25) ng/mL Ur Amphetamines Screen (Hvqhms=3705) ng/mL U Benzodiazepines Scrn (Pttvij=672) ng/mL Urine Cocaine Screen (Cutoff= 300) ng/mL U Marijuana (THC) Screen (Cutoff = 50) ng/mL Ethyl Alcohol 117 H Specimen Rejected - EKG Data EKG attestation: Yes I reviewed and interpreted this EKG. EKG shows normal: sinus rhythm Rate: normal Rhythm: NSR Daphne/QRS: normal Interpretation: normal EKG Psychiatric Medical Clearance - Medical Clearance Checklist Medical History: Malingering (Acute) Drug-seeking behavior (Acute) History of mixed drug abuse (Chronic) Opiate abuse, continuous (Acute) Benzodiazepine abuse (Acute) Adjustment disorder (Acute) Depression (Chronic) Suicidal ideation (Resolved) Alcohol withdrawal (Chronic) LOC (loss of consciousness) (Resolved) Cocaine abuse (Acute) Barbiturate abuse (Acute) Delirium tremens (Acute) Auditory hallucinations (Acute) Polysubstance (excluding opioids) dependence (Chronic) DVT prophylaxis (Acute) Hypertension (Chronic) Electrolyte abnormality (Acute) Diabetes mellitus type 2 in obese (Acute) Polysubstance abuse (Chronic) Hypomagnesemia (Acute) Drug overdose (Resolved) Diabetes mellitus (Chronic) Morbid obesity with BMI of 50.0-59.9, adult (Chronic) Tobacco abuse (Chronic) Altered mental status (Acute) Dermatitis (Acute) Alcohol dependence with withdrawal (Acute) Schizophrenia (Acute) PTSD (post-traumatic stress disorder) (Chronic) Suicidal ideation (Acute) Pulmonary edema (Acute) Prediabetes (Acute) Pulmonary nodule (Acute) Chest pain at rest (Inactive) Cocaine abuse (Inactive) Polysubstance abuse (Inactive) Syncope (Inactive) Urinary tract infection (Inactive) No Social History Section defined Current Vitals: Last Vital Signs Temp 97.4 F L 01/07/18 03:50 Pulse 94 01/07/18 03:50 Resp 16 01/07/18 03:50 BP 93/60 01/07/18 03:50 Pulse Ox 98 01/07/18 04:50 Psychiatric Lab Panel: Drug Levels and Toxicity 01/06/18 01/07/18 01/07/18 23:47 00:02 01:04 Urine Opiates Screen Negative Acetaminophen < 10 L Ur Barbiturates Screen Positive H Ur Phencyclidine Scrn Negative Ur Amphetamines Screen Positive H U Benzodiazepines Scrn Positive H Urine Cocaine Screen Positive H U Marijuana (THC) Screen Negative Ethyl Alcohol Cancelled 117 H Abnormal Labs: Abnormal lab results Potassium 3.2 mEq/L (3.5-5.1) L 01/07/18 01:04 Carbon Dioxide 22 mEq/L (23-29) L 01/07/18 01:04 Glucose 143 mg/dL (70-105) H 01/07/18 01:04 AST 40 Units/L (13-39) H 01/07/18 01:04 Globulin 3.6 g/dL (2.4-3.5) H 01/07/18 01:04 Salicylates < 2.5 mg/dL (15.0-30.0) L 01/07/18 01:04 Acetaminophen < 10 mcg/mL (10-20) L 01/07/18 00:02 Ur Barbiturates Screen Positive ng/mL (Krowyk=401) H 01/06/18 23:47 Ur Amphetamines Screen Positive ng/mL (Obcmpg=0620) H 01/06/18 23:47 U Benzodiazepines Scrn Positive ng/mL (Actqjr=224) H 01/06/18 23:47 Urine Cocaine Screen Positive ng/mL (Cutoff= 300) H 01/06/18 23:47 Ethyl Alcohol 117 mg/dL (Less than 10) H 01/07/18 01:04 Attestation Statement - Attestation Attestation: I examined this patient and my medical decision-making was reviewed with the Resident Physician. I agree with the documented findings, disposition and treatment plan as described except to the extent set forth below. Drug abuse in the setting of alcohol abuse. Suspect sympathomimetic toxidrome. Patient will need admission for sobriety as well as prevention of alcohol which are all prior to evaluation by psychiatric services.
[2018-01-07] MEDS ORDERED: Ondansetron 4 MG/2 ML VIAL IVP ONE (00:06)
[2018-01-07 00:16] LABS: Basophils # 0.1 K/mcL (0.0-0.2); Basophils % 1.2 %; Eosinophils # 0.1 K/mcL (0.0-0.6); Eosinophils % 1.5 %; Hematocrit 45.4 % (37.5-50.1); Hemoglobin 15.4 g/dL (12.9-16.9); Immature Granulocytes % 0.5 % (0-4); Lymphocytes # 2.4 K/mcL (0.6-4.6); Lymphocytes % 26.2 %; Mean Corpuscular HGB Conc 33.9 g/dL (31.6-35.5); Mean Corpuscular Hemoglobin 30.4 pg (28.0-33.3); Mean Corpuscular Volume 89.5 fL (83.0-100.0); Mean Platelet Volume 9.8 fL (9.4-12.4); Monocytes # 0.8 K/mcL (0.0-1.3); Monocytes % 8.5 %; Neutrophils # 5.7 K/mcL (1.6-8.9); Platelet Count 315 K/mcL (140-400); Red Blood Count 5.07 M/mcL (4.19-5.50); Red Cell Distribution Width 13.9 % (11.5-14.5); Segmented Neutrophils % 62.1 %
[2018-01-07 00:18] LABS: Bilirubin,Urine Negative (Negative); Blood,Urine Negative (Negative); Clarity,Urine Clear (Clear); Color,Urine Yellow (Yellow); Glucose,Urine (UA) Normal (Normal); Ketones,Urine Negative (Negative); Leukocyte Esterase,Urine Negative (Negative); Nitrite,Urine Negative (Negative); Protein,Urine Negative (Neg-Trace); Specific Gravity,Urine 1.013 (1.010-1.025); Urobilinogen,Urine Normal (Normal)
[2018-01-07 00:26] LABS: Amphetamine Screen,Urine Positive ng/mL (Cutoff=1000); Barbiturate Screen,Urine Positive ng/mL (Cutoff=200); Benzodiazepines Screen,Urine Positive ng/mL (Cutoff=200); Cannabinoid Screen,Urine Negative ng/mL (Cutoff = 50); Cocaine Screen,Urine Positive ng/mL (Cutoff= 300); Opiate Screen,Urine Negative ng/mL (Cutoff=300); Phencyclidine Screen,Urine Negative ng/mL (Cutoff=25)
[2018-01-07 00:39] LABS: Acetaminophen < 10 mcg/mL (10-20)
[2018-01-07 01:40] LABS: Alanine Aminotransferase 47 Units/L (7-52); Albumin 4.1 g/dL (3.5-5.7); Albumin/Globulin Ratio 1.1 (1.1-2.2); Alkaline Phosphatase 70 Units/L (34-104); Aspartate Amino Transferase 40 Units/L (13-39); BUN/Creatinine Ratio 9 (6-26); Bilirubin,Direct 0.1 mg/dL (0.0-0.2); Bilirubin,Indirect 0.3 mg/dL (0.0-1.2); Bilirubin,Total 0.4 mg/dL (0.3-1.0); Blood Urea Nitrogen 11 mg/dL (6-20); Calcium 9.5 mg/dL (8.6-10.3); Carbon Dioxide 22 mEq/L (23-29); Chloride 106 mEq/L (98-107); Ethanol 117 mg/dL (Less than 10); Globulin 3.6 g/dL (2.4-3.5); Glucose 143 mg/dL (70-105); Osmolality,Calculated 292 (280-300); Potassium 3.2 mEq/L (3.5-5.1); Salicylate < 2.5 mg/dL (15.0-30.0); Sodium 140 mEq/L (136-145); Total Protein 7.7 g/dL (6.4-8.9); eGFR For African Americans > 60 (> 60); eGFR For Non-African Americans > 60 (> 60)
[2018-01-07] MEDS ORDERED: *HR* LORazepam 2 MG/ML VIAL IVP ONE ×2 (01:42→02:12)
[2018-01-07 01:45] LABS: Troponin I < 0.03 ng/mL (< 0.04)
[2018-01-07] MEDS ORDERED: *HR* LORazepam 2 MG/ML VIAL IVP PRN (02:48)
[2018-01-07] MEDS ORDERED: Acetaminophen 325 MG TABLET PO PRN (02:50)
[2018-01-07] MEDS ORDERED: Naloxone 0.4 MG/ML INJ IVP PRN (02:50)
[2018-01-07] MEDS ORDERED: Dextrose Gel 15 GM/37.5 ML TUBE PO PRN ×2 (02:51)
[2018-01-07] MEDS ORDERED: *HR* Dextrose 50 % in Water (Syg) 50 ML SYRINGE IVP PRN (02:51)
[2018-01-07] MEDS ORDERED: D5% in Water 1,000 ML IVC PRN (02:51)
--- NOTE | 2018-01-07 02:57 | Internal Med History&Physical ---
Date of Encounter: 01/07/18 Time of Encounter: 02:54 Internal Medicine - H&P: HPI Chief complaint: alcohol withdrawal Admitted From: Emergency Dept Plans for Post Hospital Care: Home History of present illness: Mr. Adams is a 47 year old male alcohol and multi substance abuse, psychiatric disorders, PTSD, prediabetes, ??CHF who was here admitted yesterday and left later in the day. He was being treated for alcohol withdrawals and left AMA on same day of admission. He was evaluated by psych yesterday and was deemed not suicidal as there was a question about that on admission. Patient was not cooperative on my interview. He had his back turned to be and was interested in sleeping. When I asked him what brought him back in, he stated "because I'm a dumbass". Per the ED staff, the patient wants help and he left AMA earlier because his girlfriend convinced him to do so and promised him that they would not drink anymore. He is a daily drinker. He went home and his girlfriend was drinking. He caved in and started drinking too. They got into an argument and he left to a friend's home where he did some meth. His UDS was + for meth, cocaine, barbiturates, and benzos (but he received benzos here while admitted and takes barbiturates as a prescription based on notes). He changed his mind and wanted help again to stop abusing drugs. He came to the ED. Was tachycardic and showing signs of withdrawals and given 3 mg IV ativan. CXR was done and showed pulmonary edema and left perihilar nodule a CT chest was done showing similar findings of pulmonary edema centrally that was mild. A 5 mm left lower lobe nodule was mentioned. Patient was not hypoxic in the ED. Past Med Surg Social Fam HX - Past Medical History Medical history: CHF, hypertension, myocardial infarction Psychiatric history: anxiety, depression, previous psychiatric hospitalization - Past Surgical History Surgical History: no surgical history - Social History Smoking Status: Current every day smoker Smokeless Tobacco Status: No Alcohol use: heavy, recent Drug use: cocaine, opiates, marijuana, methamphetamine, IV Drug Use - Family History Father Living Status: Mother Living Status: Internal Medicine - H&P: Meds Amlodipine Besylate 10 mg PO DAILY 01/06/18 [History] Gabapentin [Neurontin] 600 mg PO QID 01/06/18 [History] Lisinopril [Zestril] 40 mg PO DAILY 01/06/18 [History] 3 Allergy/AdvReac Type Severity Reaction Status Date / Time Amoxicillin Allergy Hives Verified 04/24/17 07:41 Penicillins Allergy Hives Verified 04/24/17 07:41 quetiapine [From Seroquel] Allergy Hives Verified 01/06/18 03:01 ROS unobtainable: other All Systems PM: A 10-system review of systems was performed and is negative for pertinent findings except as documented above in the HPI. Review of systems: Patient was not cooperative - Constitutional Vitals: Temp Pulse Resp BP Pulse Ox 98.0 F 108 18 134/82 94 01/06/18 23:40 01/06/18 23:40 01/06/18 23:40 01/06/18 23:40 01/06/18 23:40 Exam: GEN: NAD, restless HEENT: AT, NC, No cyanosis, oral mucosa is moist, No JVD Lymphatics: No lymphadenoapthy Eyes: Extrocular muscles intact, anicteric CVS: Tachycardic S1, S2, No m/r/g RESP: CTAB ABD: Soft, NT, ND, +BS EXT: No edema, No rashes, 2+ DP NEURO: Nonfocal, CN II-XII intact, No focal motor or sensory deficits Psych: Cooperative, Not anxious or depressed Internal Med - H&P Results - Labs CBC & Chem 7: 01/07/18 00:02 01/07/18 01:04 Labs: Short CBC 01/07/18 Range/Units 00:02 WBC 9.2 (4.3-11.1) K/mcL Hgb 15.4 (12.9-16.9) g/dL Hct 45.4 (37.5-50.1) % Plt Count 315 (140-400) K/mcL Neutrophils # 5.7 (1.6-8.9) K/mcL BMP 01/07/18 01/07/18 00:02 01:04 Sodium Cancelled 140 Potassium Cancelled 3.2 L Chloride Cancelled 106 Carbon Dioxide Cancelled 22 L BUN Cancelled 11 Creatinine Cancelled 1.17 Glucose Cancelled 143 H Calcium Cancelled 9.5 Cardiac Enzymes 05/02/18 Range/Units 01:04 Troponin I < 0.03 (< 0.04) ng/mL Liver Function 01/07/18 01/07/18 Range/Units 00:02 01:04 Total Bilirubin Cancelled 0.4 Direct Bilirubin Cancelled 0.1 AST Cancelled 40 H ALT Cancelled 47 Alkaline Phosphatase Cancelled 70 Albumin Cancelled 4.1 Urine 01/06/18 Range/Units 23:47 Urine Color Yellow (Yellow) Urine Clarity Clear (Clear) Urine pH 6.0 (5.0-8.0) pH Units Ur Specific [place] 1.013 (1.010-1.025) Urine Protein Negative (Neg-Trace) mg/dL Urine Glucose (UA) Normal (Normal) mg/dL - Impressions ITS Impressions Chest X-Ray 01/06/18 23:59 IMPRESSION: 1. Pulmonary edema. 2. Left perihilar nodule. Nonemergent chest CT is recommended for further evaluation D/ / Aditya Gupta MD / Aditya Gupta MD Interpreting Provider: Aditya Gupta MD Chest CT 01/07/18 01:13 IMPRESSION: Mild central pulmonary edema. Enlargement of the main pulmonary artery may represent chronic pulmonary arterial hypertension. No definite evidence of mass corresponding to the suspected left perihilar nodule seen on prior chest x-ray. This likely represent vascular prominence. Incidentally noted 5 mm left lower lobe pulmonary nodule. Please see follow-up recommendations below. RECOMMENDATIONS: Fleischner Society guidelines for follow-up and management of incidentally detected pulmonary nodules: Single Solid Nodule: Nodule size less than 6 mm In a low-risk patient, no routine follow-up. In a high-risk patient, optional CT at 12 months. Nodule size equals 6-8 mm - Low risk patients include individuals with minimal or absent history of smoking and other known risk factors. - High risk patients include individuals with a history or smoking or known risk factors. Radiology 2017 http://pubs.rsna.org/doi/full/10.1148/radiol.[email or web address] D/ / Sam Gregg MD / Sam Gregg MD Interpreting Provider: Sam Gregg MD - Assessment and plan (1) Alcohol dependence with withdrawal Current Visit: No Status: Acute Assessment and plan: We will put the patient on CIWA protocol. cooler room worker consult. We will start multivitamins, folic acid and thiamine. Qualifiers: Complication of substance-induced condition: uncomplicated Qualified Code(s ): F10.230 - Alcohol dependence with withdrawal, uncomplicated (2) Pulmonary edema Current Visit: Yes Status: Acute Assessment and plan: Found on chest x-ray and CT chest. Patient is not hypoxic. BNP is not elevated. We will get an echocardiogram. Possible dilated cardiomyopathy given his alcohol abuse. Qualifiers: Chronicity: acute Qualified Code(s): J81.0 - Acute pulmonary edema (3) Pulmonary nodule Current Visit: Yes Status: Acute Assessment and plan: Needs to have follow-ups in the outpatient setting with possibly serial CTs. (4) Prediabetes Current Visit: Yes Status: Acute Assessment and plan: Insulin sliding scale. Accu-Cheks. (5) Polysubstance abuse Current Visit: Yes Status: Chronic Assessment and plan: Needs counseling and social work help with resources (6) Schizophrenia Current Visit: No Status: Acute Assessment and plan: Resume home medications. Patient was seen by psych yesterday and deemed nonsuicidal. Qualifiers: Schizophrenia type: unspecified Qualified Code(s): F20.9 - Schizophrenia, unspecified (7) Hypertension Current Visit: No Status: Chronic Assessment and plan: Resume home antihypertensives. Qualifiers: Hypertension type: essential hypertension Qualified Code(s): I10 - Essential (primary) hypertension (8) DVT prophylaxis Current Visit: No Status: Acute Assessment and plan: Heparin subcutaneous - Time Spent With Patient Total time spent is greater than 50% in coordination of care (as documented) at patient's floor/unit and/or counseling patient:
[2018-01-07] MEDS: *HR* LORazepam 2 MG/ML VIAL IVP PRN ×2 (04:44→09:09)
[2018-01-07] MEDS ORDERED: *HR* Heparin 5,000 UNIT/ML VIAL SQ SCH (06:00)
[2018-01-07] MEDS: Insulin LISPRO 300 UNITS/3 ML VIAL SQ SCH ×2 (07:41→12:00)
[2018-01-07] MEDS ORDERED: Folic Acid 1 MG TABLET PO SCH (09:00)
[2018-01-07] MEDS ORDERED: Vitamin B Complex/Vit C/Vit E 1 EACH TABLET PO SCH (09:00)
[2018-01-07] MEDS ORDERED: Thiamine (B-1) 100 MG TABLET PO SCH (09:00)
--- NOTE | 2018-01-07 11:38 | Event Note ---
Date of Encounter: 01/07/18 Time of Encounter: 08:20 Patient feels somewhat better today. Return back to the ER after leaving the hospital AMA yesterday. He reports that he drank more alcohol after going back home. Presently denies any suicidal ideation. Has one-to-one sitter at bedside. Psychiatric consult also consulted as patient initially describes suicidal thoughts in the ER. Continue monitoring for alcohol withdrawal. Continue CIWA protocol.
[2018-01-07 12:02] VITALS: BP 148/103
--- NOTE | 2018-01-07 12:32 | Electrocardiograph Report ---
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
[2018-01-07] MEDS ORDERED: Perflutren Lipid Microsphere 1.3 ML in 0.9 % Sodium Chloride 8.7 ML IVP ONE (13:40)
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
--- NOTE | 2018-01-07 16:23 | Event Note ---
Date of Encounter: 01/07/18 Time of Encounter: 16:22 Patient left the hospital AMA. He understands the risks and consequences of not obtaining appropriate medical care. History wishes to leave AMA and has signed paperwork for this.
[2018-01-07] MEDS ORDERED: Insulin LISPRO 300 UNITS/3 ML VIAL SQ SCH (21:00)
== END 2018-01-07 13:42 | disposition left against medical advice (07) ==
LOC: 3BNU 23:39 → EMEROO 23:39 → SUATTDRO 01-07 03:22 → 3BNU 01-07 03:34
PROVIDERS: ADMIT Internal Medicine; ATTEND Internal Medicine

== ENCOUNTER 2018-01-09 14:18 | Inpatient (IN) ==
[2018-01-09] MEDS ORDERED: diazePAM 10 MG/2 ML SYRINGE IVP ONE ×3 (14:31→18:00)
--- NOTE | 2018-01-09 14:32 | Emergency Department Note ---
Disposition Clinical Impression: Alcohol withdrawal, Suicidal ideation Disposition: Admitted As Inpatient Condition: Fair General Adult HPI - General Chief complaint: ED Psychiatric Symptoms Stated complaint: SI/Alcohol withdrawal Time Seen by Provider: 01/09/18 14:25 - History of Present Illness Pain Scale: 0 - Related Data Home Medications Medication Instructions Recorded Confirmed No Known Home Drugs 01/07/18 01/07/18 Allergies Allergy/AdvReac Type Severity Reaction Status Date / Time Amoxicillin Allergy Hives Verified 01/09/18 14:38 Penicillins Allergy Hives Verified 01/09/18 14:38 quetiapine [From Seroquel] Allergy Hives Verified 01/09/18 14:38 Past Medical History - Past Medical History Medical history: Reports: CHF, hypertension, myocardial infarction Surgical history: Reports: no surgical history Psychiatric history: Reports: anxiety, depression, previous psychiatric hospitalization - Social History Smoking Status: Current every day smoker Smokeless Tobacco Status: No Alcohol use: Reports: heavy, recent Drug use: Reports: cocaine, opiates, marijuana, methamphetamine, IV Drug Use Course Vital Signs Temperature 98.3 F 01/09/18 14:26 Pulse Rate 111 01/09/18 14:26 Respiratory Rate 15 01/09/18 14:26 Blood Pressure 216/112 01/09/18 14:26 O2 Sat by Pulse Oximetry 96 01/09/18 14:26 Temperature 98.3 F 01/09/18 18:19 Pulse Rate 98 01/09/18 18:19 Respiratory Rate 16 01/09/18 18:19 Blood Pressure 148/87 01/09/18 18:19 O2 Sat by Pulse Oximetry 97 01/09/18 18:19 Oxygen Delivery Oxygen Delivery Room Air Medical Decision Making - Lab Data Result diagrams: 01/09/18 14:30 01/09/18 14:30 Lab Results 01/09/18 01/09/18 01/09/18 Range/Units 14:30 14:30 14:30 WBC 9.2 (4.3-11.1) K/mcL RBC 4.91 (4.19-5.50) M/mcL Hgb 14.6 (12.9-16.9) g/dL Hct 43.5 (37.5-50.1) % MCV 88.6 (83.0-100.0) fL MCH 29.7 (28.0-33.3) pg MCHC 33.6 (31.6-35.5) g/dL RDW 13.9 (11.5-14.5) % Plt Count 297 (140-400) K/mcL MPV 9.9 (9.4-12.4) fL Immature Gran % 0.3 (0-4) % Seg Neutrophils % 74.0 % Lymphocytes % 16.0 % Monocytes % 7.2 % Eosinophils % 1.6 % Basophils % 0.9 % Neutrophils # 6.8 (1.6-8.9) K/mcL Lymphocytes # 1.5 (0.6-4.6) K/mcL Monocytes # 0.7 (0.0-1.3) K/mcL Eosinophils # 0.2 (0.0-0.6) K/mcL Basophils # 0.1 (0.0-0.2) K/mcL Sodium 138 (136-145) mEq/L Potassium 3.7 (3.5-5.1) mEq/L Chloride 104 (98-107) mEq/L Carbon Dioxide 27 (23-29) mEq/L BUN 13 (6-20) mg/dL Creatinine 0.78 (0.70-1.30) mg/dL Est GFR ( Amer) > 60 (> 60) Est GFR (Non-Af Amer) > 60 (> 60) BUN/Creatinine Ratio 17 (6-26) Glucose 172 H (70-105) mg/dL Calculated Osmolality 290 (280-300) Calcium 9.1 (8.6-10.3) mg/dL Magnesium 1.8 (1.6-2.6) mg/dL Total Bilirubin 0.5 (0.3-1.0) mg/dL Direct Bilirubin 0.1 (0.0-0.2) mg/dL Indirect Bilirubin 0.4 (0.0-1.2) mg/dL AST 39 (13-39) Units/L ALT 43 (7-52) Units/L Alkaline Phosphatase 73 (34-104) Units/L Serum Total Protein 7.4 (6.4-8.9) g/dL Albumin 4.1 (3.5-5.7) g/dL Globulin 3.3 (2.4-3.5) g/dL Albumin/Globulin Ratio 1.2 (1.1-2.2) Salicylates < 2.5 L (15.0-30.0) mg/dL Urine Opiates Screen Negative (Pcpjbp=316) ng/mL Acetaminophen < 10 L (10-20) mcg/mL Ur Barbiturates Screen Positive H (Tzngwd=596) ng/mL Ur Phencyclidine Scrn Negative (Cutoff=25) ng/mL Ur Amphetamines Screen Negative (Aqnwtd=3001) ng/mL U Benzodiazepines Scrn Positive H (Ygkjrr=475) ng/mL Urine Cocaine Screen Positive H (Cutoff= 300) ng/mL U Marijuana (THC) Screen Positive H (Cutoff = 50) ng/mL Ethyl Alcohol < 10 (Less than 10) mg/dL Critical Care Time Critical Care Time: Yes Total Critical Care Time: 30 Attestation: The high probability of a clinically significant, sudden or life threatening deterioration of the [] system(s) required my full and direct attention, intervention and personal management. The aggregate critical care time was [] minutes. This time is in addition to time spent performing reported procedures but includes the following: [] Data Review and interpretation [] Patient assessment and monitoring of vital signs [] Documentation [] Medication orders and management Attestation Statement - Attestation Attestation: I examined this patient and my medical decision-making was reviewed with the Resident Physician. I agree with the documented findings, disposition and treatment plan as described except to the extent set forth below. [id number] time provided Patient arrives stating he wants to detox from alcohol. He has been drinking several pints of liquor daily for the past several years. Last drink was approximately 11 hours ago. He feels shaky. He is anxious and jittery on exam. He states he has previously detox from alcohol and went through withdrawals.
[2018-01-09 15:10] LABS: Basophils # 0.1 K/mcL (0.0-0.2); Basophils % 0.9 %; Eosinophils # 0.2 K/mcL (0.0-0.6); Eosinophils % 1.6 %; Hematocrit 43.5 % (37.5-50.1); Hemoglobin 14.6 g/dL (12.9-16.9); Immature Granulocytes % 0.3 % (0-4); Lymphocytes # 1.5 K/mcL (0.6-4.6); Mean Corpuscular HGB Conc 33.6 g/dL (31.6-35.5); Mean Corpuscular Hemoglobin 29.7 pg (28.0-33.3); Mean Corpuscular Volume 88.6 fL (83.0-100.0); Mean Platelet Volume 9.9 fL (9.4-12.4); Monocytes # 0.7 K/mcL (0.0-1.3); Monocytes % 7.2 %; Neutrophils # 6.8 K/mcL (1.6-8.9); Platelet Count 297 K/mcL (140-400); Red Blood Count 4.91 M/mcL (4.19-5.50); Red Cell Distribution Width 13.9 % (11.5-14.5)
[2018-01-09 15:14] LABS: Amphetamine Screen,Urine Negative ng/mL (Cutoff=1000); Barbiturate Screen,Urine Positive ng/mL (Cutoff=200); Benzodiazepines Screen,Urine Positive ng/mL (Cutoff=200); Cannabinoid Screen,Urine Positive ng/mL (Cutoff = 50); Cocaine Screen,Urine Positive ng/mL (Cutoff= 300); Opiate Screen,Urine Negative ng/mL (Cutoff=300); Phencyclidine Screen,Urine Negative ng/mL (Cutoff=25)
[2018-01-09 15:31] LABS: Acetaminophen < 10 mcg/mL (10-20); Alanine Aminotransferase 43 Units/L (7-52); Albumin 4.1 g/dL (3.5-5.7); Albumin/Globulin Ratio 1.2 (1.1-2.2); Alkaline Phosphatase 73 Units/L (34-104); Aspartate Amino Transferase 39 Units/L (13-39); BUN/Creatinine Ratio 17 (6-26); Bilirubin,Direct 0.1 mg/dL (0.0-0.2); Bilirubin,Indirect 0.4 mg/dL (0.0-1.2); Bilirubin,Total 0.5 mg/dL (0.3-1.0); Blood Urea Nitrogen 13 mg/dL (6-20); Calcium 9.1 mg/dL (8.6-10.3); Carbon Dioxide 27 mEq/L (23-29); Chloride 104 mEq/L (98-107); Ethanol < 10 mg/dL (Less than 10); Globulin 3.3 g/dL (2.4-3.5); Glucose 172 mg/dL (70-105); Magnesium 1.8 mg/dL (1.6-2.6); Osmolality,Calculated 290 (280-300); Potassium 3.7 mEq/L (3.5-5.1); Salicylate < 2.5 mg/dL (15.0-30.0); Sodium 138 mEq/L (136-145); Total Protein 7.4 g/dL (6.4-8.9); eGFR For African Americans > 60 (> 60); eGFR For Non-African Americans > 60 (> 60)
--- NOTE | 2018-01-09 15:35 | Emergency Department Note ---
Disposition Clinical Impression: Suicidal ideation Alcohol withdrawal Qualifiers: Complication of substance-induced condition: with unspecified complication Qualified Code(s): F10.239 - Alcohol dependence with withdrawal, unspecified Disposition: Admitted As Inpatient Condition: Fair Time of Disposition: 16:30 General Adult HPI - General Chief complaint: ED Psychiatric Symptoms Stated complaint: SI/Alcohol withdrawal Time Seen by Provider: 01/09/18 14:25 Source: patient Limitations: no limitations Nursing Notes Reviewed: Yes Vital Signs Reviewed: Yes - History of Present Illness HPI Narrative: 47-year-old male with a past medical history of schizophrenia and chronic alcohol abuse presenting for concern he is in active alcohol withdrawal. Patient states he has a history of alcohol withdrawal with seizure to resident doctor. States no hx of seizure to attending. Endorses cocaine abuse yesterday. States last alcohol use was at 2 PM yesterday. Context: Patient ingested 12 pack beer and 2 pints of Jagermeister. Timing: Constant. Worsening factor: None identified. Relieving factors: None identified. In the past, patient has required ativan. Associated symptoms: Endorses sweating, myalgia, diarrhea, cough, abdominal pain he rates at a 8/10. Patient endorses auditory hallucinations, encouraging patient to hurt and kill himself. Patient has an active SI. States he has though of plan. Denies HI. Pain Scale: 0 - Related Data Home Medications Medication Instructions Recorded Confirmed No Known Home Drugs 01/07/18 01/07/18 Allergies Allergy/AdvReac Type Severity Reaction Status Date / Time Amoxicillin Allergy Hives Verified 01/09/18 14:38 Penicillins Allergy Hives Verified 01/09/18 14:38 quetiapine [From Seroquel] Allergy Hives Verified 01/09/18 14:38 Constitutional: Reports: as per HPI, chills. Denies: fever Cardiovascular: Denies: chest pain Respiratory: Reports: as per HPI, cough. Denies: hemoptysis Gastrointestinal: Reports: as per HPI, abdominal pain, nausea, diarrhea. Denies : vomiting, hematemesis, melena, hematochezia Genitourinary: Denies: hematuria Musculoskeletal: Reports: as per HPI, myalgia Integumentary: Reports: other (endorses skin crawling sensation ) Psychiatric: Reports: anxiety, depression, suicidal thoughts, auditory hallucinations. Denies: homicidal thoughts Past Medical History - Past Medical History Medical history: Reports: CHF, hypertension, myocardial infarction Surgical history: Reports: no surgical history Psychiatric history: Reports: anxiety, depression, previous psychiatric hospitalization - Social History Smoking Status: Current every day smoker Smokeless Tobacco Status: No Alcohol use: Reports: heavy, recent Drug use: Reports: cocaine, opiates, marijuana, methamphetamine, IV Drug Use Physical Exam - General General appearance: alert, anxious, other (moderate tremor, perceptible sweatings, palms moist) - Head Head exam: atraumatic, normocephalic - Eye Eye exam: Present: PERRL, other (Full EOM.). Absent: conjunctival injection - ENT ENT exam: mucous membranes dry - Chest Chest inspection: Present: symmetric chest wall rise. Absent: tenderness - Respiratory Respiratory exam: Present: normal lung sounds bilaterally. Absent: wheezes - Cardiovascular Cardiovascular exam: Present: normal rhythm, tachycardia, +S1, +S2 - Abdominal Exam Abdominal exam: Present: soft, tenderness Abdominal tenderness: Present: diffuse, mild - Extremities Exam Extremities exam: Present: pedal edema (+1) - Psychiatric Psychiatric exam: Present: anxious, suicidal ideation, other (attentive to questions, goal-directed thought). Absent: agitated - Other Other exam information: [facility] estimated Total Criteria: 26 Course - Reevaluation(s) Reevaluation #1: Diazepam 10 mg IV ONCE, following assessment, on arrival. Reevaluation #2: 16:23 - Status post Repeat 10 mg IV. Patient endorses continued shakes. No acute baseline mentation change. Reevaluation #3: Patient requested lunch prior to admission. He ate half of plate. No emesis. No agitation. Patient is not disruptive to garcia. Remains Anxious. Continued visible tremors. Endorsed continued sensation crawling on skin. 10 mg IV diazepam ordered Vital Signs Temperature 98.3 F 01/09/18 14:26 Pulse Rate 111 01/09/18 14:26 Respiratory Rate 15 01/09/18 14:26 Blood Pressure 216/112 01/09/18 14:26 O2 Sat by Pulse Oximetry 96 01/09/18 14:26 Temperature 98.3 F 01/09/18 15:07 Pulse Rate 99 01/09/18 15:30 Respiratory Rate 20 01/09/18 17:05 Blood Pressure 148/133 01/09/18 17:05 O2 Sat by Pulse Oximetry 97 01/09/18 15:30 Oxygen Delivery Oxygen Delivery Room Air Medical Decision Making - MDM Narrative Medical decision making narrative: 47-year-old male presenting with PMHX of schizophrenia and alcohol abuse, presenting with ssx concerning for alcohol withdrawal and SI. All sources of potential harm removed. Staff member assigned to provide constant observation. Patient's belonging stored separately. 1A Consultation made. CIWA Scale estimated at 26. Patient to be admitted for Alcohol Withdrawal with [facility] protocol and observation due to SI. - Lab Data Lab results reviewed: Yes I reviewed the patient's lab results. Result diagrams: 01/09/18 14:30 01/09/18 14:30 Lab Results 01/09/18 01/09/18 01/09/18 Range/Units 14:30 14:30 14:30 WBC 9.2 (4.3-11.1) K/mcL RBC 4.91 (4.19-5.50) M/mcL Hgb 14.6 (12.9-16.9) g/dL Hct 43.5 (37.5-50.1) % MCV 88.6 (83.0-100.0) fL MCH 29.7 (28.0-33.3) pg MCHC 33.6 (31.6-35.5) g/dL RDW 13.9 (11.5-14.5) % Plt Count 297 (140-400) K/mcL MPV 9.9 (9.4-12.4) fL Immature Gran % 0.3 (0-4) % Seg Neutrophils % 74.0 % Lymphocytes % 16.0 % Monocytes % 7.2 % Eosinophils % 1.6 % Basophils % 0.9 % Neutrophils # 6.8 (1.6-8.9) K/mcL Lymphocytes # 1.5 (0.6-4.6) K/mcL Monocytes # 0.7 (0.0-1.3) K/mcL Eosinophils # 0.2 (0.0-0.6) K/mcL Basophils # 0.1 (0.0-0.2) K/mcL Sodium 138 (136-145) mEq/L Potassium 3.7 (3.5-5.1) mEq/L Chloride 104 (98-107) mEq/L Carbon Dioxide 27 (23-29) mEq/L BUN 13 (6-20) mg/dL Creatinine 0.78 (0.70-1.30) mg/dL Est GFR ( Amer) > 60 (> 60) Est GFR (Non-Af Amer) > 60 (> 60) BUN/Creatinine Ratio 17 (6-26) Glucose 172 H (70-105) mg/dL Calculated Osmolality 290 (280-300) Calcium 9.1 (8.6-10.3) mg/dL Magnesium 1.8 (1.6-2.6) mg/dL Total Bilirubin 0.5 (0.3-1.0) mg/dL Direct Bilirubin 0.1 (0.0-0.2) mg/dL Indirect Bilirubin 0.4 (0.0-1.2) mg/dL AST 39 (13-39) Units/L ALT 43 (7-52) Units/L Alkaline Phosphatase 73 (34-104) Units/L Serum Total Protein 7.4 (6.4-8.9) g/dL Albumin 4.1 (3.5-5.7) g/dL Globulin 3.3 (2.4-3.5) g/dL Albumin/Globulin Ratio 1.2 (1.1-2.2) Salicylates < 2.5 L (15.0-30.0) mg/dL Urine Opiates Screen Negative (Vivryb=238) ng/mL Acetaminophen < 10 L (10-20) mcg/mL Ur Barbiturates Screen Positive H (Okrtry=161) ng/mL Ur Phencyclidine Scrn Negative (Cutoff=25) ng/mL Ur Amphetamines Screen Negative (Ethucj=8796) ng/mL U Benzodiazepines Scrn Positive H (Znkpsx=404) ng/mL Urine Cocaine Screen Positive H (Cutoff= 300) ng/mL U Marijuana (THC) Screen Positive H (Cutoff = 50) ng/mL Ethyl Alcohol < 10 (Less than 10) mg/dL - Radiology Data Radiology results reviewed: Yes I reviewed the patient's radiology results. - EKG Data EKG #1 EKG attestation: Yes I reviewed and interpreted this EKG. EKG results narrative: 14:46:55 Sinus Tachycardia. Vent 107 bpm. IN 162 ms. QRS 98 ms. QT/QTc 345/408 ms. Old ECG reviewed for comparison. Reviewed with attending.
[2018-01-09] MEDS ORDERED: 0.9 % Sodium Chloride 1,000 ML IVC ONE (17:23)
[2018-01-09] MEDS ORDERED: Thiamine (B-1) 100 MG, Folic Acid 1 MG, MVI, adult with vitamin K 10 ML in 0.9 % Sodi... IVPB SCH (18:00)
--- NOTE | 2018-01-09 18:18 | Internal Med History&Physical ---
Date of Encounter: 01/09/18 Time of Encounter: 18:15 Internal Medicine - H&P: HPI Chief complaint: suicide ideation, intoxication Admitted From: Emergency Dept Plans for Post Hospital Care: Home History of present illness: Mr. Adams is a 47 year old male Patient with history of schizophrenia, morbid obesity, depression, prior psychiatric hospitalization, hypertension, polysubstance abuse which included cocaine and barbiturates opiates and THC, Known drug-seeking behavior, diabetes. Patient presented emergency room with cocaine and alcohol intoxication with suicidal ideation he had about 12 beers and 2 Nawaf Isabella yesterday and also some cocaine abuse yesterday having some hallucination and wanting to kill and hurt himself. Psych will not take him until he detoxed and no longer in withdrawal. Patient is obviously shaking and withdrawals symptoms He will be admitted and put on the alcohol withdrawal protocol his urine tox screen is positive again for multiple drugs cocaine and barbiturates opiates and THC. Patient hemodynamically stable at this point denies any chest pain Past Med Surg Social Fam HX - Past Medical History Medical history: CHF, diabetes, hypertension, myocardial infarction Psychiatric history: anxiety, depression, previous psychiatric hospitalization - Past Surgical History Surgical History: no surgical history - Social History Smoking Status: Current every day smoker Smokeless Tobacco Status: No Alcohol use: heavy, recent Drug use: cocaine, opiates, marijuana, methamphetamine, IV Drug Use - Family History Father Living Status: Mother Living Status: Internal Medicine - H&P: Meds No Known Home Drugs 01/07/18 [History] 3 Allergy/AdvReac Type Severity Reaction Status Date / Time Amoxicillin Allergy Hives Verified 01/09/18 14:38 Penicillins Allergy Hives Verified 01/09/18 14:38 quetiapine [From Seroquel] Allergy Hives Verified 01/09/18 14:38 All Systems PM: A 10-system review of systems was performed and is negative for pertinent findings except as documented above in the HPI. - Constitutional Vitals: Temp Pulse Resp BP Pulse Ox 98.3 F 104 20 154/96 97 01/09/18 15:07 01/09/18 17:37 01/09/18 17:37 01/09/18 17:37 01/09/18 17:37 General appearance: Present: mild distress - Eye Eye exam: Present: PERRL, conjuntiva pink, sclera anicteric Pupils: Present: PERRL - Neck Neck exam general surgery: Present: supple, trachea midline. Absent: lymphadenopathy - Cardiovascular Cardiovascular exam: Present: RRR, +S1, +S2. Absent: diastolic murmur, gallop, rubs, systolic murmur - GI/Abdominal GI/Abdominal exam: Present: normal bowel sounds, soft, no peritoneal signs. Absent: distended, tenderness Internal Med - H&P Results - Labs CBC & Chem 7: 01/09/18 14:30 01/09/18 14:30 - Assessment and plan (1) Drug-seeking behavior Current Visit: No Status: Acute Assessment and plan: Patient is known for drug-seeking behavior is already asking for more shots for his shaking spells (2) History of mixed drug abuse Current Visit: No Status: Chronic Assessment and plan: Patient with polysubstance abuse with multiple admissions in the past and drug seeking behavior (3) Suicidal ideation Current Visit: No Status: Resolved Assessment and plan: The patient his a history can of killing himself consult psychiatric for follow -up (4) Alcohol withdrawal Current Visit: Yes Status: Chronic Assessment and plan: Patient has high risk for alcohol withdrawal syndrome including DT Qualifiers: Complication of substance-induced condition: with unspecified complication Qualified Code(s): F10.239 - Alcohol dependence with withdrawal, unspecified (5) Cocaine abuse Current Visit: No Status: Acute Assessment and plan: Chronic polysubstance abuse (6) Diabetes mellitus type 2 in obese Current Visit: No Status: Chronic Assessment and plan: Chronic resume home medication and place on sliding scale (7) Polysubstance abuse Current Visit: No Status: Chronic (8) Schizophrenia Current Visit: No Status: Chronic Assessment and plan: Chronic resume home medication Qualifiers: Schizophrenia type: unspecified Qualified Code(s): F20.9 - Schizophrenia, unspecified - Time Spent With Patient Total time spent is greater than 50% in coordination of care (as documented) at patient's floor/unit and/or counseling patient:
[2018-01-09] MEDS ORDERED: Acetaminophen 325 MG TABLET PO PRN (18:23)
[2018-01-09] MEDS ORDERED: Naloxone 0.4 MG/ML INJ IVP PRN (18:23)
[2018-01-09] MEDS ORDERED: traMADol 50 MG TABLET PO PRN (18:23)
[2018-01-09] MEDS ORDERED: *HR* LORazepam 2 MG/ML VIAL IVP PRN (18:28)
[2018-01-09 19:04] LABS: Estimated Average Glucose 163 mg/dl; Hemoglobin A1C 7.3 %
[2018-01-09] MEDS: 0.9 % Sodium Chloride 1,000 ML IVC SCH (19:25)
[2018-01-09] MEDS: *HR* LORazepam 2 MG/ML VIAL IVP PRN (23:24)
[2018-01-10 01:44] LABS: Hematocrit 38.9 % (37.5-50.1); Hemoglobin 13.1 g/dL (12.9-16.9); Mean Corpuscular HGB Conc 33.7 g/dL (31.6-35.5); Mean Corpuscular Hemoglobin 30.2 pg (28.0-33.3); Mean Corpuscular Volume 89.6 fL (83.0-100.0); Mean Platelet Volume 10.6 fL (9.4-12.4); Platelet Count 228 K/mcL (140-400); Red Blood Count 4.34 M/mcL (4.19-5.50); Red Cell Distribution Width 13.8 % (11.5-14.5)
[2018-01-10 02:15] LABS: Alanine Aminotransferase 37 Units/L (7-52); Albumin 3.5 g/dL (3.5-5.7); Albumin/Globulin Ratio 1.2 (1.1-2.2); Alkaline Phosphatase 61 Units/L (34-104); Aspartate Amino Transferase 35 Units/L (13-39); BUN/Creatinine Ratio 15 (6-26); Bilirubin,Total 0.3 mg/dL (0.3-1.0); Blood Urea Nitrogen 11 mg/dL (6-20); Calcium 8.3 mg/dL (8.6-10.3); Carbon Dioxide 26 mEq/L (23-29); Chloride 105 mEq/L (98-107); Globulin 2.9 g/dL (2.4-3.5); Glucose 170 mg/dL (70-105); Magnesium 1.9 mg/dL (1.6-2.6); Osmolality,Calculated 289 (280-300); Potassium 3.4 mEq/L (3.5-5.1); Sodium 138 mEq/L (136-145); Total Protein 6.4 g/dL (6.4-8.9); eGFR For African Americans > 60 (> 60); eGFR For Non-African Americans > 60 (> 60)
[2018-01-10] MEDS: *HR* LORazepam 2 MG/ML VIAL IVP PRN ×4 (04:03→17:33)
[2018-01-10] MEDS: *HR* Enoxaparin 40 MG/0.4 ML SYRINGE SQ SCH (05:29)
[2018-01-10] MEDS: 0.9 % Sodium Chloride 1,000 ML IVC SCH (05:31)
[2018-01-10] MEDS: Folic Acid 1 MG TABLET PO SCH (09:40)
[2018-01-10] MEDS: Thiamine (B-1) 100 MG TABLET PO SCH (09:40)
[2018-01-10] MEDS: Vitamin B Complex/Vit C/Vit E 1 EACH TABLET PO SCH (09:40)
--- NOTE | 2018-01-10 11:00 | Internal Med Progress Note ---
Date of Encounter: 01/10/18 Time of Encounter: 10:58 - Assessment and plan (1) Drug-seeking behavior Current Visit: No Status: Acute Assessment and plan: chronic (2) History of mixed drug abuse Current Visit: No Status: Chronic Assessment and plan: chronic will consult social service (3) Suicidal ideation Current Visit: No Status: Resolved Assessment and plan: psych evaluation pending (4) Alcohol withdrawal Current Visit: Yes Status: Chronic Assessment and plan: cont withdrawal protocol Qualifiers: Complication of substance-induced condition: with unspecified complication Qualified Code(s): F10.239 - Alcohol dependence with withdrawal, unspecified (5) Cocaine abuse Current Visit: No Status: Acute (6) Diabetes mellitus type 2 in obese Current Visit: No Status: Chronic (7) Polysubstance abuse Current Visit: No Status: Chronic (8) Schizophrenia Current Visit: No Status: Chronic Qualifiers: Schizophrenia type: unspecified Qualified Code(s): F20.9 - Schizophrenia, unspecified - Time Spent With Patient Total time spent is greater than 50% in coordination of care (as documented) at patient's floor/unit and/or counseling patient: - Subjective Interval history: patient seen and examined sleepy no acute issues at presents receiving ativan for withdrawal psych evaluation pending - Constitutional Vitals: Temp Pulse Resp BP Pulse Ox 98.5 F 78 22 146/81 95 01/10/18 08:13 01/10/18 08:13 01/10/18 08:13 01/10/18 08:13 01/10/18 08:13 General appearance: Present: mild distress - Head Head exam: Present: atraumatic, normocephalic - Eye Eye exam: Present: PERRL, conjuntiva pink, sclera anicteric Pupils: Present: PERRL - Neck Neck exam general surgery: Present: supple, trachea midline. Absent: lymphadenopathy - Respiratory Respiratory exam: Present: CTAB. Absent: accessory muscle use, rales, rhonchi, wheezes - Cardiovascular Cardiovascular exam: Present: RRR, +S1, +S2. Absent: diastolic murmur, gallop, rubs, systolic murmur - GI/Abdominal GI/Abdominal exam: Present: normal bowel sounds, soft, no peritoneal signs. Absent: distended, tenderness - Extremities Exam Extremities exam: Present: warm, radial pulses palpable and symmetrical. Absent : calf tenderness, cyanotic, pedal edema - Neurological Exam Neurological exam: Present: CN II-XII intact, oriented X3, no focal deficits. Absent: pronater drift, facial droop, speech deficit - Skin Skin exam: Present: dry, intact Internal Medicine: Result - Labs CBC & Chem 7: 01/10/18 01:06 01/10/18 01:06 Labs: Short CBC 01/10/18 Range/Units 01:06 WBC 7.9 (4.3-11.1) K/mcL Hgb 13.1 D (12.9-16.9) g/dL Hct 38.9 (37.5-50.1) % Plt Count 228 (140-400) K/mcL BMP 01/10/18 01:06 Sodium 138 Potassium 3.4 L Chloride 105 Carbon Dioxide 26 BUN 11 Creatinine 0.72 Glucose 170 H Calcium 8.3 L Cardiac Enzymes 01/09/18 01/10/18 01/10/18 Range/Units 18:44 01:06 05:41 Troponin I < 0.03 < 0.03 < 0.03 (< 0.04) ng/mL Liver Function 01/10/18 Range/Units 01:06 Total Bilirubin 0.3 (0.3-1.0) mg/dL AST 35 (13-39) Units/L ALT 37 (7-52) Units/L Alkaline Phosphatase 61 (34-104) Units/L Albumin 3.5 (3.5-5.7) g/dL Consult Discharge Plan - Plan Referrals: NONE,PCP [Primary Care Provider] -
[2018-01-10] MEDS: Gabapentin 300 MG CAPSULE PO SCH ×3 (13:15→19:52)
--- NOTE | 2018-01-10 14:18 | Consult Note ---
Date of Encounter: 01/10/18 Time of Encounter: 13:10 Assessment & Recommendation (1) Alcohol withdrawal Current visit: Yes Status: Chronic Qualifiers: Complication of substance-induced condition: with unspecified complication Qualified Code(s): F10.239 - Alcohol dependence with withdrawal, unspecified (2) Suicidal ideation Current visit: No Status: Acute Assessment & Recommendation: continue 1:1 and close monitoring for safety (3) Depression Current visit: No Status: Acute Qualifiers: Depression Type: major depressive disorder Major depression recurrence: recurrent Active/Remission status: currently active Major depression episode severity: moderate Qualified Code(s): F33.1 - Major depressive disorder, recurrent, moderate History of Present Illness Patient: known to practice within the last 3 years Requesting Physician: Jefferson Cardona MD Reason for consult: suicidal ideation History of present illness: Mr. Adams is a 47 year old male consulted today. He is been seen third time as this is his third admission with intoxication and suicidal ideation. he leaves AMA and gets intoxicated and puts self in dangerous situation. He is depress, anxious and h/o DT HE was seen at his bed side and has sitter. he remains depress, states this time he will not leave and will get treatment. he was very shaky and anxious. a/p aLCOHOL WITHDRAWAL STABILIZATION Depression nos Start escitalopram 10 mg added neurontin 600 mg qid which he was taking for diabetic neuropathy as will also help his mood and with DT. Once medically stable to be transfered to inpatient psych. Thank you for consult and involving us in his care. CC: Jefferson Cardona MD Past Med Surg Social Fam HX - Past Medical History Medical history: CHF, hypertension, myocardial infarction - Past Psychiatric History Psychiatric history: Reports: depression Family psychiatric history: No Family History of Suicide: None - Past Surgical History Surgical History: no surgical history - Social History Smoking Status: Current every day smoker Smokeless Tobacco Status: No Alcohol use: heavy, recent Drug use: cocaine, opiates, marijuana, methamphetamine, IV Drug Use - Family History Father Living Status: Mother Living Status: Medications & Allergies Gabapentin [Neurontin] 600 mg PO QID 01/10/18 [History] 3 Allergy/AdvReac Type Severity Reaction Status Date / Time Amoxicillin Allergy Hives Verified 01/09/18 14:38 Penicillins Allergy Hives Verified 01/09/18 14:38 quetiapine [From Seroquel] Allergy Hives Verified 01/09/18 14:38 Review of Systems Psychiatric: Reports: depression, anxiety, hopelessness Psychiatry Exam - Constitutional Vitals: Temp Pulse Resp BP Pulse Ox 98.6 F 96 20 154/83 95 01/10/18 11:45 01/10/18 11:45 01/10/18 11:45 01/10/18 11:45 01/10/18 11:45 General appearance: disheveled - Psychiatric Patient Orientation: Yes Person, Yes Time, Yes Place Level of alertness: Alert Behavior: nervous, anxious Eye Contact: Maintains Eye Contact Mood Description: Depressed, Anxious Affect description: dysphoric Speech Volume: Normal Thought Process: Intact Thought Content: Yes Suicidal ideation Perceptual Disturbances: No Auditory hallucinations, No Visual hallucinations Attention Span Ability: Unable to Sustain Attention Memory Description: Grossly Intact Patient Reliability: Reliable Historian Fund of knowledge: Yes abstraction ability, Yes aware of current events Intelligence Estimate: Average Judgment: Limited Insight: Minimal Results - Drug Levels and Toxicology Drug Levels and Toxicology: Drug Levels and Toxicity 01/09/18 18:44 Ethyl Alcohol < 10 - Labs Labs: Laboratory Last Values WBC 7.9 K/mcL (4.3-11.1) 01/10/18 01:06 RBC 4.34 M/mcL (4.19-5.50) 01/10/18 01:06 Hgb 13.1 g/dL (12.9-16.9) D 01/10/18 01:06 Hct 38.9 % (37.5-50.1) 01/10/18 01:06 MCV 89.6 fL (83.0-100.0) 01/10/18 01:06 MCH 30.2 pg (28.0-33.3) 01/10/18 01:06 MCHC 33.7 g/dL (31.6-35.5) 01/10/18 01:06 RDW 13.8 % (11.5-14.5) 01/10/18 01:06 Plt Count 228 K/mcL (140-400) 01/10/18 01:06 MPV 10.6 fL (9.4-12.4) 01/10/18 01:06 Immature Gran % 0.3 % (0-4) 01/09/18 14:30 Seg Neutrophils % 74.0 % 01/09/18 14:30 Lymphocytes % 16.0 % 01/09/18 14:30 Monocytes % 7.2 % 01/09/18 14:30 Eosinophils % 1.6 % 01/09/18 14:30 Basophils % 0.9 % 01/09/18 14:30 Neutrophils # 6.8 K/mcL (1.6-8.9) 01/09/18 14:30 Lymphocytes # 1.5 K/mcL (0.6-4.6) 01/09/18 14:30 Monocytes # 0.7 K/mcL (0.0-1.3) 01/09/18 14:30 Eosinophils # 0.2 K/mcL (0.0-0.6) 01/09/18 14:30 Basophils # 0.1 K/mcL (0.0-0.2) 01/09/18 14:30 Sodium 138 mEq/L (136-145) 01/10/18 01:06 Potassium 3.4 mEq/L (3.5-5.1) L 01/10/18 01:06 Chloride 105 mEq/L (98-107) 01/10/18 01:06 Carbon Dioxide 26 mEq/L (23-29) 01/10/18 01:06 BUN 11 mg/dL (6-20) 01/10/18 01:06 Creatinine 0.72 mg/dL (0.70-1.30) 01/10/18 01:06 Est GFR ( Amer) > 60 (> 60) 01/10/18 01:06 Est GFR (Non-Af Amer) > 60 (> 60) 01/10/18 01:06 BUN/Creatinine Ratio 15 (6-26) 01/10/18 01:06 Glucose 170 mg/dL (70-105) H 01/10/18 01:06 Est Mean Plasma Glucose 163 mg/dl 01/09/18 18:44 Hemoglobin A1c 7.3 % (-5.6) H 01/09/18 18:44 Calculated Osmolality 289 (280-300) 01/10/18 01:06 Calcium 8.3 mg/dL (8.6-10.3) L 01/10/18 01:06 Magnesium 1.9 mg/dL (1.6-2.6) 01/10/18 01:06 Total Bilirubin 0.3 mg/dL (0.3-1.0) 01/10/18 01:06 Direct Bilirubin 0.1 mg/dL (0.0-0.2) 01/09/18 14:30 Indirect Bilirubin 0.4 mg/dL (0.0-1.2) 01/09/18 14:30 AST 35 Units/L (13-39) 01/10/18 01:06 ALT 37 Units/L (7-52) 01/10/18 01:06 Alkaline Phosphatase 61 Units/L (34-104) 01/10/18 01:06 Troponin I < 0.03 ng/mL (< 0.04) 01/10/18 05:41 Serum Total Protein 6.4 g/dL (6.4-8.9) 01/10/18 01:06 Albumin 3.5 g/dL (3.5-5.7) 01/10/18 01:06 Globulin 2.9 g/dL (2.4-3.5) 01/10/18 01:06 Albumin/Globulin Ratio 1.2 (1.1-2.2) 01/10/18 01:06 Lipase 32 Units/L (11-82) 01/09/18 18:44 Salicylates < 2.5 mg/dL (15.0-30.0) L 01/09/18 14:30 Urine Opiates Screen Negative ng/mL (Etzpzx=682) 01/09/18 14:30 Acetaminophen < 10 mcg/mL (10-20) L 01/09/18 14:30 Ur Barbiturates Screen Positive ng/mL (Vmskgy=012) H 01/09/18 14:30 Ur Phencyclidine Scrn Negative ng/mL (Cutoff=25) 01/09/18 14:30 Ur Amphetamines Screen Negative ng/mL (Elhnru=4231) 01/09/18 14:30 U Benzodiazepines Scrn Positive ng/mL (Rtjcbc=553) H 01/09/18 14:30 Urine Cocaine Screen Positive ng/mL (Cutoff= 300) H 01/09/18 14:30 U Marijuana (THC) Screen Positive ng/mL (Cutoff = 50) H 01/09/18 14:30 Ethyl Alcohol < 10 mg/dL (Less than 10) 01/09/18 18:44 Consult Discharge Plan - Plan Referrals: NONE,PCP [Primary Care Provider] -
[2018-01-10] MEDS: Thiamine (B-1) 100 MG, Folic Acid 1 MG, MVI, adult with vitamin K 10 ML in 0.9 % Sodi... IVPB SCH (18:32)
[2018-01-10] MEDS: Nicotine 21 MG PATCH.TD24 TD SCH (19:57)
[2018-01-10] MEDS: diazePAM 10 MG/2 ML SYRINGE IVP PRN (21:24)
[2018-01-11] MEDS: diazePAM 10 MG/2 ML SYRINGE IVP PRN ×5 (01:50→19:17)
[2018-01-11] MEDS: *HR* Enoxaparin 40 MG/0.4 ML SYRINGE SQ SCH (06:19)
[2018-01-11 07:18] LABS: Hematocrit 40.4 % (37.5-50.1); Hemoglobin 13.5 g/dL (12.9-16.9); Mean Corpuscular HGB Conc 33.4 g/dL (31.6-35.5); Mean Corpuscular Hemoglobin 29.9 pg (28.0-33.3); Mean Corpuscular Volume 89.4 fL (83.0-100.0); Mean Platelet Volume 10.3 fL (9.4-12.4); Platelet Count 250 K/mcL (140-400); Red Blood Count 4.52 M/mcL (4.19-5.50); Red Cell Distribution Width 13.6 % (11.5-14.5)
[2018-01-11] MEDS: Vitamin B Complex/Vit C/Vit E 1 EACH TABLET PO SCH (09:29)
[2018-01-11] MEDS: amLODIPine 5 MG TABLET PO SCH (09:29)
[2018-01-11] MEDS: Thiamine (B-1) 100 MG TABLET PO SCH (09:29)
[2018-01-11] MEDS: Nicotine 21 MG PATCH.TD24 TD SCH (09:29)
[2018-01-11] MEDS: Gabapentin 300 MG CAPSULE PO SCH ×4 (09:29→20:17)
[2018-01-11] MEDS: Folic Acid 1 MG TABLET PO SCH (09:29)
[2018-01-11] MEDS ORDERED: *HR* LORazepam 2 MG/ML VIAL IVP ONE (11:35)
--- NOTE | 2018-01-11 12:43 | Consult Note ---
Date of Encounter: 01/11/18 Time of Encounter: 12:05 Assessment & Recommendation (1) Alcohol withdrawal Current visit: Yes Status: Chronic Qualifiers: Complication of substance-induced condition: with unspecified complication Qualified Code(s): F10.239 - Alcohol dependence with withdrawal, unspecified (2) Suicidal ideation Current visit: No Status: Acute Assessment & Recommendation: continue 1:1 start escitalopram 10 mg (3) Depression Current visit: No Status: Acute Qualifiers: Depression Type: major depressive disorder Major depression recurrence: recurrent Active/Remission status: currently active Major depression episode severity: moderate Qualified Code(s): F33.1 - Major depressive disorder, recurrent, moderate History of Present Illness Patient: known to practice within the last 3 years Requesting Physician: Jefferson Cardona MD Reason for consult: follow up History of present illness: Mr. Adams is a 47 year old male seen today at his bedside for follow up , remains depress , suicidal and is very anxious ,shaky and pulse 101 and bp is high , he is going thru withdrawal, once medically stable will transfer to inpatient . thanks for consult andinvolving in his care rec STart escitalopram 10 mg . CC: Jefferson Cardona MD Past Med Surg Social Fam HX - Past Medical History Medical history: CHF, hypertension, myocardial infarction - Past Psychiatric History Psychiatric history: Reports: anxiety, depression Family psychiatric history: No Family History of Suicide: None - Past Surgical History Surgical History: no surgical history - Social History Smoking Status: Current every day smoker Smokeless Tobacco Status: No Alcohol use: heavy, recent Drug use: cocaine, opiates, marijuana, methamphetamine, IV Drug Use - Family History Father Living Status: Mother Living Status: Medications & Allergies Gabapentin [Neurontin] 600 mg PO QID 01/10/18 [History] 3 Allergy/AdvReac Type Severity Reaction Status Date / Time Amoxicillin Allergy Hives Verified 01/09/18 14:38 Penicillins Allergy Hives Verified 01/09/18 14:38 quetiapine [From Seroquel] Allergy Hives Verified 01/09/18 14:38 Review of Systems Psychiatric: Reports: depression, anxiety, hopelessness Psychiatry Exam - Constitutional Vitals: Temp Pulse Resp BP Pulse Ox 98.6 F 101 18 162/91 94 01/11/18 12:01 01/11/18 12:01 01/11/18 12:01 01/11/18 12:01 01/11/18 12:01 General appearance: disheveled - Psychiatric Patient Orientation: Yes Person, Yes Time, Yes Place Level of alertness: Alert Behavior: nervous, anxious Eye Contact: Maintains Eye Contact Mood Description: Depressed, Anxious Affect description: congruent with mood Speech Volume: Normal Speech pattern: coherent Language & Vocabulary: consistent with education Thought Process: Intact Thought Content: Yes Suicidal ideation Perceptual Disturbances: No Auditory hallucinations, No Visual hallucinations Attention Span Ability: Capable of Focused Attention Memory Description: Grossly Intact Patient Reliability: Reliable Historian Fund of knowledge: Yes abstraction ability, Yes aware of current events Intelligence Estimate: Average Judgment: Limited Insight: Partial Results - Labs Labs: Laboratory Last Values WBC 7.9 K/mcL (4.3-11.1) 01/11/18 06:34 RBC 4.52 M/mcL (4.19-5.50) 01/11/18 06:34 Hgb 13.5 g/dL (12.9-16.9) 01/11/18 06:34 Hct 40.4 % (37.5-50.1) 01/11/18 06:34 MCV 89.4 fL (83.0-100.0) 01/11/18 06:34 MCH 29.9 pg (28.0-33.3) 01/11/18 06:34 MCHC 33.4 g/dL (31.6-35.5) 01/11/18 06:34 RDW 13.6 % (11.5-14.5) 01/11/18 06:34 Plt Count 250 K/mcL (140-400) 01/11/18 06:34 MPV 10.3 fL (9.4-12.4) 01/11/18 06:34 Immature Gran % 0.3 % (0-4) 01/09/18 14:30 Seg Neutrophils % 74.0 % 01/09/18 14:30 Lymphocytes % 16.0 % 01/09/18 14:30 Monocytes % 7.2 % 01/09/18 14:30 Eosinophils % 1.6 % 01/09/18 14:30 Basophils % 0.9 % 01/09/18 14:30 Neutrophils # 6.8 K/mcL (1.6-8.9) 01/09/18 14:30 Lymphocytes # 1.5 K/mcL (0.6-4.6) 01/09/18 14:30 Monocytes # 0.7 K/mcL (0.0-1.3) 01/09/18 14:30 Eosinophils # 0.2 K/mcL (0.0-0.6) 01/09/18 14:30 Basophils # 0.1 K/mcL (0.0-0.2) 01/09/18 14:30 Sodium 138 mEq/L (136-145) 01/10/18 01:06 Potassium 3.4 mEq/L (3.5-5.1) L 01/10/18 01:06 Chloride 105 mEq/L (98-107) 01/10/18 01:06 Carbon Dioxide 26 mEq/L (23-29) 01/10/18 01:06 BUN 11 mg/dL (6-20) 01/10/18 01:06 Creatinine 0.72 mg/dL (0.70-1.30) 01/10/18 01:06 Est GFR ( Amer) > 60 (> 60) 01/10/18 01:06 Est GFR (Non-Af Amer) > 60 (> 60) 01/10/18 01:06 BUN/Creatinine Ratio 15 (6-26) 01/10/18 01:06 Glucose 170 mg/dL (70-105) H 01/10/18 01:06 POC Glucose 202 mg/dL (70-99) H 01/10/18 20:03 Est Mean Plasma Glucose 163 mg/dl 01/09/18 18:44 Hemoglobin A1c 7.3 % (-5.6) H 01/09/18 18:44 Calculated Osmolality 289 (280-300) 01/10/18 01:06 Calcium 8.3 mg/dL (8.6-10.3) L 01/10/18 01:06 Magnesium 1.9 mg/dL (1.6-2.6) 01/10/18 01:06 Total Bilirubin 0.3 mg/dL (0.3-1.0) 01/10/18 01:06 Direct Bilirubin 0.1 mg/dL (0.0-0.2) 01/09/18 14:30 Indirect Bilirubin 0.4 mg/dL (0.0-1.2) 01/09/18 14:30 AST 35 Units/L (13-39) 01/10/18 01:06 ALT 37 Units/L (7-52) 01/10/18 01:06 Alkaline Phosphatase 61 Units/L (34-104) 01/10/18 01:06 Troponin I < 0.03 ng/mL (< 0.04) 01/10/18 05:41 Serum Total Protein 6.4 g/dL (6.4-8.9) 01/10/18 01:06 Albumin 3.5 g/dL (3.5-5.7) 01/10/18 01:06 Globulin 2.9 g/dL (2.4-3.5) 01/10/18 01:06 Albumin/Globulin Ratio 1.2 (1.1-2.2) 01/10/18 01:06 Lipase 32 Units/L (11-82) 01/09/18 18:44 Salicylates < 2.5 mg/dL (15.0-30.0) L 01/09/18 14:30 Urine Opiates Screen Negative ng/mL (Jyqwru=371) 01/09/18 14:30 Acetaminophen < 10 mcg/mL (10-20) L 01/09/18 14:30 Ur Barbiturates Screen Positive ng/mL (Adjphe=013) H 01/09/18 14:30 Ur Phencyclidine Scrn Negative ng/mL (Cutoff=25) 01/09/18 14:30 Ur Amphetamines Screen Negative ng/mL (Ktdzxv=6810) 01/09/18 14:30 U Benzodiazepines Scrn Positive ng/mL (Awjfrg=714) H 01/09/18 14:30 Urine Cocaine Screen Positive ng/mL (Cutoff= 300) H 01/09/18 14:30 U Marijuana (THC) Screen Positive ng/mL (Cutoff = 50) H 01/09/18 14:30 Ethyl Alcohol < 10 mg/dL (Less than 10) 01/09/18 18:44 Consult Discharge Plan - Plan Referrals: NONE,PCP [Primary Care Provider] -
--- NOTE | 2018-01-11 14:20 | Internal Med Progress Note ---
Date of Encounter: 01/11/18 Time of Encounter: 14:01 - Assessment and plan (1) Alcohol withdrawal Current Visit: Yes Status: Chronic Assessment and plan: drinks 12-24 beers/day and 2 pints of Feroz Isabella every day. Last drink . History of seizures with alcohol withdrawal. Remains tremulous on exam despite ativan per CIWA. Transfer to ICU for precedex gtt and higher level of care. Qualifiers: Complication of substance-induced condition: with unspecified complication Qualified Code(s): F10.239 - Alcohol dependence with withdrawal, unspecified (2) Suicidal ideation Current Visit: Yes Status: Acute Assessment and plan: Presented to ED with hallucinations and verbalized wanting to kill and hurt himself. Evaluated by psychiatry who is recommending acute inpatient psychiatric hospitalization once medically stable. Continue one-to-one sitter. (3) Polysubstance abuse Current Visit: No Status: Chronic Assessment and plan: UDS positive for barbiturates, benzos, cocaine and marijuana. Plan for acute inpatient psychiatric hospitalization once medically stable and would likely benefit from drug rehabilitation as well. (4) Morbid obesity with BMI of 50.0-59.9, adult Current Visit: No Status: Chronic Assessment and plan: BMI 56 (5) DVT prophylaxis Current Visit: No Status: Acute Assessment and plan: lovenex - Time Spent With Patient Total time spent is greater than 50% in coordination of care (as documented) at patient's floor/unit and/or counseling patient: - Subjective Interval history: Seen and examined at bedside. Patient is new to me, information obtained from chart review and patient report. Says he feels anxious and jittery and feels like he is in withdrawal. Last drink was on . Denies requiring intubations or alcohol withdrawal but says he does have history of seizures. - Constitutional Vitals: Temp Pulse Resp BP Pulse Ox 98.6 F 101 18 162/91 94 01/11/18 12:01/11/18 12:01/11/18 12:01/11/18 12:01/11/18 12:01 General appearance: Present: mild distress, A&O X 3, morbidly obese - Head Head exam: Present: atraumatic, normocephalic - Eye Eye exam: Present: PERRL, conjuntiva pink, sclera anicteric Pupils: Present: PERRL - Neck Neck exam general surgery: Present: supple, trachea midline. Absent: lymphadenopathy - Respiratory Respiratory exam: Present: CTAB. Absent: accessory muscle use, rales, rhonchi, wheezes - Cardiovascular Cardiovascular exam: Present: RRR, +S1, +S2. Absent: diastolic murmur, gallop, rubs, systolic murmur - GI/Abdominal GI/Abdominal exam: Present: normal bowel sounds, soft, no peritoneal signs. Absent: distended, tenderness - Extremities Exam Extremities exam: Present: warm, radial pulses palpable and symmetrical. Absent : calf tenderness, cyanotic, pedal edema - Neurological Exam Neurological exam: Present: CN II-XII intact, oriented X3, no focal deficits. Absent: pronater drift, facial droop, speech deficit - Skin Skin exam: Present: dry, intact Internal Medicine: Result - Labs CBC & Chem 7: 01/11/18 06:34 01/10/18 01:06 Labs: Short CBC 01/11/18 Range/Units 06:34 WBC 7.9 (4.3-11.1) K/mcL Hgb 13.5 (12.9-16.9) g/dL Hct 40.4 (37.5-50.1) % Plt Count 250 (140-400) K/mcL Consult Discharge Plan - Plan Referrals: NONE,PCP [Primary Care Provider] -
[2018-01-11] MEDS: Dexmedetomidine HCl 400 MCG/100 ML MLS IVC SCH ×2 (16:50→21:09)
[2018-01-11] MEDS: Thiamine (B-1) 100 MG, Folic Acid 1 MG, MVI, adult with vitamin K 10 ML in 0.9 % Sodi... IVPB SCH (19:11)
[2018-01-12] MEDS: Dexmedetomidine HCl 400 MCG/100 ML MLS IVC SCH ×2 (01:34→20:47)
[2018-01-12] MEDS: *HR* Enoxaparin 40 MG/0.4 ML SYRINGE SQ SCH (05:57)
[2018-01-12] MEDS: Gabapentin 300 MG CAPSULE PO SCH ×4 (07:55→20:35)
[2018-01-12] MEDS: Folic Acid 1 MG TABLET PO SCH (07:55)
[2018-01-12] MEDS: Vitamin B Complex/Vit C/Vit E 1 EACH TABLET PO SCH (07:56)
[2018-01-12] MEDS: Nicotine 21 MG PATCH.TD24 TD SCH (07:56)
[2018-01-12] MEDS: Thiamine (B-1) 100 MG TABLET PO SCH (07:56)
[2018-01-12] MEDS: diazePAM 10 MG/2 ML SYRINGE IVP PRN (08:13)
[2018-01-12] MEDS ORDERED: *HR* LORazepam 2 MG/ML VIAL IVP PRN ×4 (08:13→08:23)
[2018-01-12] MEDS ORDERED: *HR* LORazepam 2 MG/ML VIAL IVP ONE (08:15)
[2018-01-12] MEDS: amLODIPine 5 MG TABLET PO SCH (08:19)
--- NOTE | 2018-01-12 08:32 | Internal Med Progress Note ---
Date of Encounter: 01/12/18 Time of Encounter: 08:24 - Assessment and plan (1) Alcohol withdrawal Current Visit: Yes Status: Chronic Assessment and plan: drinks 12-24 beers/day and 2 pints of Feroz Isabella every day. Last drink . History of seizures with alcohol withdrawal. Remains tremulous on exam despite ativan per CIWA was transferred to ICU stepdown for precedex gtt and higher level of care. Off Precedex gtt as of 01/11. Restart PRN ativan per CIWA scale. Cont thiamine, folic acid. Qualifiers: Complication of substance-induced condition: with unspecified complication Qualified Code(s): F10.239 - Alcohol dependence with withdrawal, unspecified (2) Suicidal ideation Current Visit: Yes Status: Acute Assessment and plan: Presented to ED with hallucinations and verbalized wanting to kill and hurt himself. Evaluated by psychiatry who is recommending acute inpatient psychiatric hospitalization once medically stable. Continue one-to-one sitter. (3) Polysubstance abuse Current Visit: No Status: Chronic Assessment and plan: UDS positive for barbiturates, benzos, cocaine and marijuana. Plan for acute inpatient psychiatric hospitalization once medically stable and would likely benefit from drug rehabilitation as well. (4) Morbid obesity with BMI of 50.0-59.9, adult Current Visit: No Status: Chronic Assessment and plan: BMI 56 (5) Diabetes mellitus Current Visit: No Status: Chronic Assessment and plan: per hx but not currently on diabetes medication. Hgb A1c 7.3%. Add SSI. 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 Says he feels like he is still into withdrawal and complaining of shakes. No chest pain or shortness of breath. He verbalized that he would like fpc treatment for his alcohol and drug addiction. He is aware of plan to transfer him to one a once medically stable - Constitutional Vitals: Temp Pulse Resp BP Pulse Ox 97.8 F 64 20 143/88 94 01/12/18 07:15 01/12/18 08:00 01/12/18 08:00 01/12/18 07:15 01/12/18 08:00 General appearance: Present: mild distress (Tremulous on exam), A&O X 3, morbidly obese - Head Head exam: Present: atraumatic, normocephalic - Eye Eye exam: Present: PERRL, conjuntiva pink, sclera anicteric Pupils: Present: PERRL - Neck Neck exam general surgery: Present: supple, trachea midline. Absent: lymphadenopathy - Respiratory Respiratory exam: Present: CTAB. Absent: accessory muscle use, rales, rhonchi, wheezes - Cardiovascular Cardiovascular exam: Present: RRR, +S1, +S2. Absent: diastolic murmur, gallop, rubs, systolic murmur - GI/Abdominal GI/Abdominal exam: Present: normal bowel sounds, soft, no peritoneal signs. Absent: distended, tenderness - Extremities Exam Extremities exam: Present: warm, radial pulses palpable and symmetrical. Absent : calf tenderness, cyanotic, pedal edema - Neurological Exam Neurological exam: Present: CN II-XII intact, oriented X3, no focal deficits. Absent: pronater drift, facial droop, speech deficit - Skin Skin exam: Present: dry, intact Internal Medicine: Result - Labs CBC & Chem 7: 01/11/18 06:34 01/10/18 01:06 Consult Discharge Plan - Plan Referrals: NONE,PCP [Primary Care Provider] -
[2018-01-12] MEDS ORDERED: D5% in Water 1,000 ML IVC PRN (08:34)
[2018-01-12] MEDS ORDERED: Dextrose Gel 15 GM/37.5 ML TUBE PO PRN ×2 (08:34)
[2018-01-12] MEDS ORDERED: *HR* Dextrose 50 % in Water (Syg) 50 ML SYRINGE IVP PRN (08:34)
[2018-01-12 09:07] LABS: Hematocrit 43.2 % (37.5-50.1); Hemoglobin 14.5 g/dL (12.9-16.9); Mean Corpuscular HGB Conc 33.6 g/dL (31.6-35.5); Mean Corpuscular Volume 89.4 fL (83.0-100.0); Mean Platelet Volume 10.5 fL (9.4-12.4); Platelet Count 259 K/mcL (140-400); Red Blood Count 4.83 M/mcL (4.19-5.50); Red Cell Distribution Width 13.6 % (11.5-14.5)
[2018-01-12 09:13] LABS: BUN/Creatinine Ratio 17 (6-26); Blood Urea Nitrogen 15 mg/dL (6-20); Calcium 9.5 mg/dL (8.6-10.3); Carbon Dioxide 27 mEq/L (23-29); Chloride 105 mEq/L (98-107); Glucose 236 mg/dL (70-105); Osmolality,Calculated 286 (280-300); Potassium 3.6 mEq/L (3.5-5.1); Sodium 134 mEq/L (136-145); eGFR For African Americans > 60 (> 60); eGFR For Non-African Americans > 60 (> 60)
[2018-01-12] MEDS: *HR* LORazepam 2 MG/ML VIAL IVP PRN ×5 (13:05→19:39)
[2018-01-12] MEDS: Insulin LISPRO 300 UNITS/3 ML VIAL SQ SCH ×3 (13:06→20:28)
--- NOTE | 2018-01-12 16:18 | Psychiatry Progress Note ---
Date of Encounter: 01/12/18 Time of Encounter: 12:00 Subjective Interval history: Chinedu is a 47-year-old male with depression and anxiety as well as alcohol dependence. He is seen today for follow-up. Patient has been to multiple hospitals and has been to [facility] several times in alcohol withdrawal. Today he reports tremor, dizziness, generally feeling fatigued. He reports his mood is low at times. He does still have occasional suicidal thoughts with no intent or plan at this time. He would like help with his mood as well as help figuring out the right treatment program for his alcohol dependence. He is worried that he is not on enough medicine for his alcohol withdrawal. He reports difficulty sleeping at times. Review of Systems Constitutional: Denies: fever, chills, weakness, weight change Eyes: Denies: eye pain, vision change Ears, Nose, Throat: Denies: ear pain, throat pain, dental pain, hearing loss, congestion Cardiovascular: Denies: chest pain, palpitations, dyspnea on exertion Respiratory: Denies: cough, dyspnea, wheezes Gastrointestinal: Denies: abdominal pain, nausea, vomiting, diarrhea, constipation Musculoskeletal: Reports: myalgia Neurological: Reports: headache, other (Tremor) Psychiatric: Reports: depression, anxiety, abnormal sleep pattern, suicidal ideation, difficulty concentrating, hopelessness Results - Vital Signs Vital Signs: Temp Pulse Resp BP Pulse Ox 98.3 F 85 22 163/88 94 01/12/18 15:45 01/12/18 15:45 01/12/18 15:45 01/12/18 15:45 01/12/18 15:45 - Labs Labs: Laboratory Results - last 24 hr 01/11/18 01/11/18 01/11/18 07:14 11:34 16:05 WBC RBC Hgb Hct MCV MCH MCHC RDW Plt Count MPV Sodium Potassium Chloride Carbon Dioxide BUN Creatinine Est GFR ( Amer) Est GFR (Non-Af Amer) BUN/Creatinine Ratio Glucose POC Glucose 210 H 201 H 213 H Calculated Osmolality Calcium 01/12/18 01/12/18 08:24 08:24 WBC 11.4 H RBC 4.83 Hgb 14.5 Hct 43.2 MCV 89.4 MCH 30.0 MCHC 33.6 RDW 13.6 Plt Count 259 MPV 10.5 Sodium 134 L Potassium 3.6 Chloride 105 Carbon Dioxide 27 BUN 15 Creatinine 0.88 Est GFR ( Amer) > 60 Est GFR (Non-Af Amer) > 60 BUN/Creatinine Ratio 17 Glucose 236 H POC Glucose Calculated Osmolality 286 Calcium 9.5 Assessment and Plan (1) Alcohol dependence with withdrawal Current visit: No Status: Acute Plan: Continue hospitalization, Close observation, Suicide Precautions per unit protocol, Encourage participation in unit milieu, Group Therapy, Monitor sleep, Monitor appetite Additional Plan: Agree with alcohol withdrawal protocols. Risks, benefits, side effects, alternatives discussed w/pt: Yes Patient agreeable to treatment: Yes Qualifiers: Complication of substance-induced condition: uncomplicated Qualified Code(s ): F10.230 - Alcohol dependence with withdrawal, uncomplicated (2) Depression Current visit: No Status: Acute Plan: Continue hospitalization Additional Plan: Patient reports vague SI. Given past behavior of leaving AMA and given vague SI without plan would continue sitter. We will continue to address depression symptoms when patient is stable for psychiatric admission. Okay to transfer to when patient has been medically cleared. Risks, benefits, side effects, alternatives discussed w/pt: Yes Patient agreeable to treatment: Yes Qualifiers: Depression Type: major depressive disorder Major depression recurrence: recurrent Active/Remission status: currently active Major depression episode severity: moderate Qualified Code(s): F33.1 - Major depressive disorder, recurrent, moderate (3) Anxiety Current visit: Yes Status: Acute Plan: Continue hospitalization Additional Plan: Encourage positive coping strategies. Consult Discharge Plan - Plan Referrals: Jude Hernandez DO [Resident] - 03/05/18 2:00 pm (sending email to see if we can get this moved up) NONE,PCP [Primary Care Provider] - Psychiatry Exam - Constitutional Vitals: Temp Pulse Resp BP Pulse Ox 98.3 F 85 22 163/88 94 01/12/18 15:45 01/12/18 15:45 01/12/18 15:45 01/12/18 15:45 01/12/18 15:45 General appearance: age & developmentally appropriate, well-groomed, well- nourished - Musculoskeletal Gait: other (Patient sitting in bed.) [facility]: [facility] Strength & Tone: mild weakness - Psychiatric Patient Orientation: Yes Person, Yes Time, Yes Place, Yes Circumstance Level of alertness: Alert Behavior: cooperative, nervous Psychomotor activity: Increased Eye Contact: Minimal Contact Mood Description: Depressed Affect description: dysphoric Speech Volume: Normal Speech pattern: normal rate, normal rhythm, normal tone Language & Vocabulary: consistent with education Thought Process: Intact, Logical Thought Content: Yes Suicidal ideation (Intermittent, vague) Perceptual Disturbances: No Auditory hallucinations, No Visual hallucinations Attention Span Ability: Capable of Focused Attention Memory Description: Grossly Intact Patient Reliability: Questionable Historian Fund of knowledge: Yes abstraction ability, Yes average, Yes aware of current events Intelligence Estimate: Average Judgment: Limited Insight: Partial
[2018-01-12] MEDS: Thiamine (B-1) 100 MG, Folic Acid 1 MG, MVI, adult with vitamin K 10 ML in 0.9 % Sodi... IVPB SCH (16:59)
[2018-01-13] MEDS: Dexmedetomidine HCl 400 MCG/100 ML MLS IVC SCH ×8 (02:26→22:50)
[2018-01-13] MEDS: *HR* Enoxaparin 40 MG/0.4 ML SYRINGE SQ SCH (05:37)
[2018-01-13] MEDS: Thiamine (B-1) 100 MG TABLET PO SCH (07:55)
[2018-01-13] MEDS: Folic Acid 1 MG TABLET PO SCH (07:55)
[2018-01-13] MEDS: Gabapentin 300 MG CAPSULE PO SCH ×4 (07:55→19:40)
[2018-01-13] MEDS: amLODIPine 5 MG TABLET PO SCH (07:55)
[2018-01-13] MEDS: Vitamin B Complex/Vit C/Vit E 1 EACH TABLET PO SCH (07:55)
[2018-01-13] MEDS: Insulin LISPRO 300 UNITS/3 ML VIAL SQ SCH ×5 (07:55→23:31)
[2018-01-13] MEDS: Nicotine 21 MG PATCH.TD24 TD SCH (07:56)
--- NOTE | 2018-01-13 07:57 | Internal Med Progress Note ---
Date of Encounter: 01/13/18 Time of Encounter: 07:55 - Assessment and plan (1) Alcohol withdrawal Current Visit: Yes Status: Chronic Assessment and plan: Acute alcohol withdrawal drinks 12-24 beers/day and 2 pints of Feroz Isabella every day. Last drink . History of seizures with alcohol withdrawal. was transferred to ICU stepdown for precedex gtt (had to be restarted) Restarted PRN ativan per CIWA scale. Start Librium to try to stop Precedex at some point Qualifiers: Complication of substance-induced condition: with unspecified complication Qualified Code(s): F10.239 - Alcohol dependence with withdrawal, unspecified (2) Polysubstance abuse Current Visit: No Status: Chronic Assessment and plan: UDS positive for barbiturates, benzos, cocaine and marijuana. Plan for acute inpatient psychiatric hospitalization once medically stable and would likely benefit from drug rehabilitation as well. (3) Diabetes mellitus Current Visit: No Status: Chronic Assessment and plan: per hx but not currently on diabetes medication. Hgb A1c 7.3%. Add SSI. 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 Evaluated by psychiatry who is recommending acute inpatient psychiatric hospitalization once medically stable. Continue one-to-one sitter. (6) Tobacco abuse Current Visit: No Status: Chronic Assessment and plan: Smoking cessation counseling, nicotine patch - Time Spent With Patient Total time spent is greater than 50% in coordination of care (as documented) at patient's floor/unit and/or counseling patient: - Subjective Interval history: Very somnolent, apparently was very anxious before, denies any chest pain or shortness of breath, no fevers or chills, no diarrhea or dysuria - Constitutional Vitals: Temp Pulse Resp BP Pulse Ox 98.6 F 58 18 143/88 95 01/13/18 07:39 05/08/18 07:39 01/13/18 07:39 01/13/18 07:39 01/13/18 07:39 General appearance: Present: A&O X 3, morbidly obese - Head Head exam: Present: atraumatic, normocephalic - Eye Eye exam: Present: PERRL, conjuntiva pink, sclera anicteric Pupils: Present: PERRL - Neck Neck exam general surgery: Present: supple, trachea midline. Absent: lymphadenopathy - Respiratory Respiratory exam: Present: CTAB. Absent: accessory muscle use, rales, rhonchi, wheezes - Cardiovascular Cardiovascular exam: Present: RRR, +S1, +S2. Absent: diastolic murmur, gallop, rubs, systolic murmur - GI/Abdominal GI/Abdominal exam: Present: normal bowel sounds, soft, no peritoneal signs. Absent: distended, tenderness - Extremities Exam Extremities exam: Present: warm, radial pulses palpable and symmetrical. Absent : calf tenderness, cyanotic, pedal edema - Neurological Exam Neurological exam: Present: CN II-XII intact, oriented X3, no focal deficits. Absent: pronater drift, facial droop, speech deficit - Skin Skin exam: Present: dry, intact Internal Medicine: Result - Labs CBC & Chem 7: 01/12/18 08:24 01/12/18 08:24 Labs: Short CBC 01/12/18 Range/Units 08:24 WBC 11.4 H (4.3-11.1) K/mcL Hgb 14.5 (12.9-16.9) g/dL Hct 43.2 (37.5-50.1) % Plt Count 259 (140-400) K/mcL BMP 01/12/18 08:24 Sodium 134 L Potassium 3.6 Chloride 105 Carbon Dioxide 27 BUN 15 Creatinine 0.88 Glucose 236 H Calcium 9.5 Consult Discharge Plan - Plan Referrals: Jude Hernandez DO [Resident] - 03/05/18 2:00 pm (sending email to see if we can get this moved up) NONE,PCP [Primary Care Provider] -
[2018-01-13] MEDS: *HR* LORazepam 2 MG/ML VIAL IVP PRN ×5 (11:53→23:32)
--- NOTE | 2018-01-13 13:23 | Psychiatry Progress Note ---
Date of Encounter: 01/13/18 Time of Encounter: 11:40 Subjective Interval history: Patient seen today for follow-up of depression and alcohol dependence. He is very sleepy and appeared to be resting comfortably. On this provider wakes patient up he looks around and then starts moving his legs around. "I am still so shaky." Patient does not appear anxious. "I just needed the Valium and the Ativan." Discussed with patient that primary team is managing alcohol withdrawal protocol. He still feels depressed and occasionally suicidal but is not able to voice a plan as he is quite sleepy. Review of Systems ROS unobtainable: due to patient condition Psychiatric: Reports: depression, anxiety, abnormal sleep pattern, suicidal ideation, difficulty concentrating, hopelessness Results - Vital Signs Vital Signs: Temp Pulse Resp BP Pulse Ox 98.6 F 58 18 143/88 95 01/13/18 07:39 01/13/18 08:04 01/13/18 07:39 01/13/18 07:39 01/13/18 07:39 - Labs Labs: Laboratory Results - last 24 hr 01/12/18 01/12/18 01/12/18 12:24 16:55 20:27 POC Glucose 127 H 233 H 304 H 01/13/18 01/13/18 07:30 11:31 POC Glucose 172 H 193 H Assessment and Plan (1) Alcohol dependence with withdrawal Current visit: No Status: Acute Plan: Continue hospitalization Additional Plan: Agree with alcohol withdrawal protocols. Risks, benefits, side effects, alternatives discussed w/pt: Yes Patient agreeable to treatment: Yes Qualifiers: Complication of substance-induced condition: uncomplicated Qualified Code(s ): F10.230 - Alcohol dependence with withdrawal, uncomplicated (2) Depression Current visit: No Status: Acute Plan: Continue hospitalization, Close observation, Suicide Precautions per unit protocol Additional Plan: Would recommend continuing medications the same for now. Continue one-to-one observation and transfer to once medically stable. Patient is sedated secondary to withdrawal protocols so I do not recommend adding more medications at this time. Patient is a flight risk so one-to-one observation as necessary for patient safety. Risks, benefits, side effects, alternatives discussed w/pt: Yes Patient agreeable to treatment: Yes Qualifiers: Depression Type: major depressive disorder Major depression recurrence: recurrent Active/Remission status: currently active Major depression episode severity: moderate Qualified Code(s): F33.1 - Major depressive disorder, recurrent, moderate (3) Anxiety Current visit: Yes Status: Acute Consult Discharge Plan - Plan Referrals: Jude Hernandez DO [Resident] - 03/05/18 2:00 pm (sending email to see if we can get this moved up) NONE,PCP [Primary Care Provider] - Psychiatry Exam - Constitutional Vitals: Temp Pulse Resp BP Pulse Ox 98.6 F 58 18 143/88 95 01/13/18 07:39 01/13/18 08:04 01/13/18 07:39 01/13/18 07:39 01/13/18 07:39 General appearance: unkempt, obese - Musculoskeletal Gait: other (Patient lying in bed) Station: slouched Strength & Tone: mild weakness - Psychiatric Patient Orientation: Yes Person Level of alertness: Sedated Behavior: agitated Psychomotor activity: Normal Eye Contact: Fleeting Contact Mood Description: Other ("I am shaky.") Affect description: incongruent with mood, other (Patient appears sleepy) Speech Volume: Normal Speech pattern: slowed Language & Vocabulary: limited Thought Process: [place], Slowed Thinking Thought Content: Yes Suicidal ideation (Intermittent and vague), No Homicidal ideation Perceptual Disturbances: No Auditory hallucinations, No Visual hallucinations Attention Span Ability: Unable to Focus, Unable to Sustain Attention Memory Description: Immediate Impaired, Recent Impaired, Remote Impaired Patient Reliability: Not Reliable Historian Fund of knowledge: Yes average Intelligence Estimate: Average Judgment: Poor Insight: None
--- NOTE | 2018-01-13 14:15 | Electrocardiograph Report ---
[address] [address] Test Date: 2018-01-09 Pat Name: Chinedu Adams Department: 102 Room: 2N01 Gender: M Conche Operator: Tmshilpi : 1970 Requested By: Hans Snyder Order Number: [id number] Reading MD: Gregory Soriano Measurements Intervals [place] Rate: 107 P: 42 MS: 162 QRS: 91 QRSD: 98 T: 21 QT: 345 QTc: 408 Interpretive Statements SINUS TACHYCARDIA BORDERLINE RIGHT AXIS DEVIATION POSSIBLE ANTERIOR MYOCARDIAL INFARCTION, OF INDETERMINATE AGE Electronically Signed On 01-13-2018 14:13:57 EDT by Gregory Soriano
[2018-01-13] MEDS ORDERED: Insulin LISPRO 300 UNITS/3 ML VIAL SQ SCH ×2 (20:12)
[2018-01-14] MEDS: Dexmedetomidine HCl 400 MCG/100 ML MLS IVC SCH ×3 (02:05→10:53)
[2018-01-14] MEDS: Insulin LISPRO 300 UNITS/3 ML VIAL SQ SCH ×4 (03:35→16:01)
[2018-01-14] MEDS: *HR* Enoxaparin 40 MG/0.4 ML SYRINGE SQ SCH (05:08)
[2018-01-14] MEDS: *HR* LORazepam 2 MG/ML VIAL IVP PRN ×6 (06:33→17:13)
--- NOTE | 2018-01-14 08:16 | Internal Med Progress Note ---
Date of Encounter: 01/14/18 Time of Encounter: 08:15 - Assessment and plan (1) Alcohol withdrawal Current Visit: Yes Status: Chronic Assessment and plan: Acute alcohol withdrawal drinks 12-24 beers/day and 2 pints of Feroz Isabella every day. Last drink . History of seizures with alcohol withdrawal. was transferred to ICU stepdown for precedex gtt (had to be restarted) Continue PRN ativan per CIWA scale. Continue Librium ( refusing doses) to try to stop Precedex Qualifiers: Complication of substance-induced condition: with unspecified complication Qualified Code(s): F10.239 - Alcohol dependence with withdrawal, unspecified (2) Polysubstance abuse Current Visit: No Status: Chronic Assessment and plan: UDS positive for barbiturates, benzos, cocaine and marijuana. Plan for acute inpatient psychiatric hospitalization once medically stable and would likely benefit from drug rehabilitation as well. (3) Diabetes mellitus Current Visit: No Status: Chronic Assessment and plan: per hx but not currently on diabetes medication. Hgb A1c 7.3%. Add SSI. 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 Evaluated by psychiatry who is recommending acute inpatient psychiatric hospitalization once medically stable. Continue one-to-one sitter. (6) Tobacco abuse Current Visit: No Status: Chronic Assessment and plan: Smoking cessation counseling, nicotine patch - Time Spent With Patient Total time spent is greater than 50% in coordination of care (as documented) at patient's floor/unit and/or counseling patient: - Subjective Interval history: Poor historian. Very somnolent, was very anxious before, denies any chest pain or shortness of breath, no fevers or chills, no diarrhea or dysuria - Constitutional Vitals: Temp Pulse Resp BP Pulse Ox 98.6 F 62 20 147/92 92 01/14/18 03:29 01/14/18 03:29 01/14/18 03:29 01/14/18 03:29 01/14/18 03:29 General appearance: Present: A&O X 3, morbidly obese Exam: - Head Head exam: Present: atraumatic, normocephalic - Eye Eye exam: Present: PERRL, conjuntiva pink, sclera anicteric Pupils: Present: PERRL - Neck Neck exam general surgery: Present: supple, trachea midline. Absent: lymphadenopathy - Respiratory Respiratory exam: Present: CTAB. Absent: accessory muscle use, rales, rhonchi, wheezes - Cardiovascular Cardiovascular exam: Present: RRR, +S1, +S2. Absent: diastolic murmur, gallop, rubs, systolic murmur - GI/Abdominal GI/Abdominal exam: Present: normal bowel sounds, soft, no peritoneal signs. Absent: distended, tenderness - Extremities Exam Extremities exam: Present: warm, radial pulses palpable and symmetrical. Absent : calf tenderness, cyanotic, pedal edema - Neurological Exam Neurological exam: Present: CN II-XII intact, oriented X3, no focal deficits. Absent: pronater drift, facial droop, speech deficit - Skin Skin exam: Present: dry, intact Internal Medicine: Result - Labs CBC & Chem 7: 01/12/18 08:24 01/12/18 08:24 Consult Discharge Plan - Plan Referrals: Jude Hernandez DO [Resident] - 03/05/18 2:00 pm (sending email to see if we can get this moved up) NONE,PCP [Primary Care Provider] -
[2018-01-14] MEDS: Nicotine 21 MG PATCH.TD24 TD SCH (09:32)
[2018-01-14] MEDS: Folic Acid 1 MG TABLET PO SCH (09:33)
[2018-01-14] MEDS: Gabapentin 300 MG CAPSULE PO SCH ×3 (09:33→17:12)
[2018-01-14] MEDS: Vitamin B Complex/Vit C/Vit E 1 EACH TABLET PO SCH (09:33)
[2018-01-14] MEDS: Thiamine (B-1) 100 MG TABLET PO SCH (09:33)
[2018-01-14] MEDS: amLODIPine 5 MG TABLET PO SCH (09:33)
--- NOTE | 2018-01-14 15:01 | Discharge Summary ---
Date of Encounter: 01/28/18 Time of Encounter: 15:01 - Discharge Diagnosis (1) Alcohol withdrawal Priority: Primary Status: Chronic Assessment and Plan: Acute alcohol withdrawal (2) Polysubstance abuse Priority: Secondary Status: Chronic Assessment and Plan: UDS positive for barbiturates, benzos, cocaine and marijuana. (3) Diabetes mellitus Priority: Secondary Status: Chronic Assessment and Plan: Was not taking any medication. Hgb A1c 7.3%. 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 Psychiatry recommending acute inpatient psychiatric hospitalization. Had a one-on-one sitter. (6) Tobacco abuse Priority: Secondary Status: Chronic Hospital course: Mr. Adams is a 47 year old male with history of schizophrenia, morbid obesity , depression, prior psychiatric hospitalization, hypertension, polysubstance abuse , alcohol abusewhich included cocaine and barbiturates opiates and THC, Known drug-seeking behavior, diabetes not insulin dependent. The patient presented to the emergency room with cocaine and alcohol intoxication with suicidal ideation, Had an alcohol level of 117 on 01/07/18, he had about 12 beers and 2 Nawaf Isabella the day prior to admission and also used cocaine. Was having hallucination and wanting to kill and hurt himself. Psychiatry did not take him due to acute alcohol withdrawal. Drinks 12-24 beers/day and 2 pints of Feroz Isabella every day. Last drink was on 01/09/18. History of seizures with alcohol withdrawal. Was transferred to ICU stepdown for precedex gtt . Continued on PRN ativan per CIWA scale. Continue Librium ( refusing doses at times). Currently off precedex, needs to taper Librium and ativan Start metformin - Time Spent with Patient Total time spent providing and/or coordinating discharge services: Greater than 30 minutes (40 min) - Discharge Medications Home Medications: Amlodipine Besylate 10 mg PO DAILY #30 tablet 01/15/18 [Rx] Gabapentin [Neurontin] 600 mg PO QID 01/15/18 [History] Lisinopril [Zestril] 40 mg PO DAILY #30 tablet 01/15/18 [Rx] hydroCHLOROthiazide [Hydrochlorothiazide] 12.5 mg PO DAILY #30 tablet 01/15/18 [ Rx] metFORMIN [Glucophage] 500 mg PO BIDWM #60 tablet 01/15/18 [Rx] Allergies/Adverse Reactions: 3 Allergy/AdvReac Type Severity Reaction Status Date / Time Amoxicillin Allergy Hives Verified 01/24/18 10:00 Penicillins Allergy Hives Verified 01/24/18 10:00 quetiapine [From Seroquel] Allergy Hives Verified 01/24/18 10:00 chlordiazepoxide AdvReac Gastrointestinal Verified 01/24/18 10:00 [From Librium] Upset Date of admission: 01/09/18 18:23 Primary care physician: PCP NONE Consults: 01/09/18 18:26 Consult to Psychiatry [CONS] Routine Consulting Provider: Psychiatry Jaylyn Reason for Consult: suicidal ideation Call Completed: No 01/09/18 18:28 Consult to Sports Medicine Physician [CONS] Routine Reason for SW Consult: multi drug abuse - Constitutional Vitals: Temp Pulse Resp BP Pulse Ox 98.1 F 61 25 136/80 94 01/14/18 11:22 01/14/18 11:22 01/14/18 11:22 01/14/18 11:22 01/14/18 11:22 General appearance: Present: A&O X 3, morbidly obese - Head Head exam: Present: atraumatic, normocephalic - Eye Eye exam: Present: PERRL, conjuntiva pink, sclera anicteric Pupils: Present: PERRL - Neck Neck exam general surgery: Present: supple, trachea midline. Absent: lymphadenopathy - Respiratory Respiratory exam: Present: CTAB. Absent: accessory muscle use, rales, rhonchi, wheezes - Cardiovascular Cardiovascular exam: Present: RRR, +S1, +S2. Absent: diastolic murmur, gallop, rubs, systolic murmur - GI/Abdominal GI/Abdominal exam: Present: normal bowel sounds, soft, no peritoneal signs. Absent: distended, tenderness - Extremities Exam Extremities exam: Present: warm, radial pulses palpable and symmetrical. Absent : calf tenderness, cyanotic, pedal edema - Neurological Exam Neurological exam: Present: CN II-XII intact, oriented X3, no focal deficits. Absent: pronater drift, facial droop, speech deficit - Skin Skin exam: Present: dry, intact - Patient Status Disposition: Transfer Psychiatric Hosp Condition: Fair - Discharge Instructions Instructions: Anxiety (DC) Follow Up With: Jude Hernandez DO [Resident] - 03/05/18 2:00 pm (sending email to see if we can get this moved up) NONE,PCP [Primary Care Provider] - Additional Instructions: Taper Librium 50 mg TID, then 25 mg QID, 25 mg TID, 10 mg TID, 10 mg BID, 5 mg BID, 5 mg daily and stop. Can use Ativan PO 2 mg Q2h as needed. Start Metformin 500 mg BID - Diet and Activity Activity: increase activity as tolerated Diet: diabetic diet
[2018-01-14 15:34] VITALS: BP 164/81
== END 2018-01-14 17:57 | DRG 897 ==
LOC: EMEROO 14:18 → 3BNU 14:18 → SUATTDRO 18:23 → 2NNU 01-11 16:48
PROVIDERS: ADMIT Internal Medicine; ATTEND Internal Medicine

== ENCOUNTER 2018-01-14 16:46 | Inpatient (IN) ==
[2018-01-14] MEDS ORDERED: *HR* LORazepam 1 MG TABLET PO PRN (18:10)
[2018-01-14] MEDS ORDERED: *HR* LORazepam 2 MG/ML VIAL IM PRN (18:10)
[2018-01-14] MEDS ORDERED: Ibuprofen 400 MG TABLET PO PRN (18:10)
[2018-01-14] MEDS ORDERED: MOM Conc 10 ML UD.LIQ PO PRN (18:10)
[2018-01-14] MEDS ORDERED: traZODone 50 MG TABLET PO PRN (18:10)
[2018-01-14] MEDS ORDERED: Mag Hydrox/Al Hydrox/Simeth 30 ML UDC PO PRN (18:10)
[2018-01-14] MEDS ORDERED: Haloperidol Lactate 5 MG/ML VIAL IM PRN (18:10)
[2018-01-14] MEDS ORDERED: Gabapentin 300 MG CAPSULE PO SCH (21:00)
[2018-01-14] MEDS ORDERED: *HR* LORazepam 1 MG TABLET PO ONE (22:42)
[2018-01-15 05:32] VITALS: BP 214/96
[2018-01-15] MEDS ORDERED: *HR* LORazepam 1 MG TABLET PO ONE (05:32)
[2018-01-15] MEDS ORDERED: hydrALAZINE 10 MG TABLET PO ONE (06:30)
[2018-01-15] MEDS ORDERED: *HR* Metformin 500 MG TABLET PO SCH (08:00)
[2018-01-15] MEDS ORDERED: Thiamine (B-1) 100 MG TABLET PO SCH (09:00)
[2018-01-15] MEDS ORDERED: Folic Acid 1 MG TABLET PO SCH (09:00)
[2018-01-15] MEDS ORDERED: Vitamin B Complex/Vit C/Vit E 1 EACH TABLET PO SCH (09:00)
[2018-01-15] MEDS ORDERED: Nicotine 21 MG PATCH.TD24 TD SCH (09:00)
[2018-01-15] MEDS ORDERED: amLODIPine 5 MG TABLET PO SCH (09:00)
--- NOTE | 2018-01-15 12:06 | Discharge Summary ---
Date of Encounter: 01/15/18 Time of Encounter: 07:00 Diagnosis - Discharge Diagnosis (1) Alcohol dependence with withdrawal Status: Acute Qualifiers: Complication of substance-induced condition: with unspecified complication Qualified Code(s): F10.239 - Alcohol dependence with withdrawal, unspecified (2) Depression Status: Chronic Qualifiers: Depression Type: major depressive disorder Major depression recurrence: recurrent Active/Remission status: currently active Major depression episode severity: moderate Qualified Code(s): F33.1 - Major depressive disorder, recurrent, moderate (3) Anxiety Status: Acute Medications - Discharge Medications Amlodipine Besylate 10 mg PO DAILY 01/15/18 [History] Gabapentin [Neurontin] 600 mg PO QID 01/15/18 [History] Lisinopril [Zestril] 40 mg PO DAILY 01/15/18 [History] 3 Allergy/AdvReac Type Severity Reaction Status Date / Time Amoxicillin Allergy Hives Verified 01/15/18 09:24 Penicillins Allergy Hives Verified 01/15/18 09:24 quetiapine [From Seroquel] Allergy Hives Verified 01/15/18 09:24 Provider Date of admission: 01/14/18 16:46 Primary care physician: PCP NONE Consults: 01/15/18 05:54 Consult to Hospitalist [CONS] Stat Consulting Provider: Hospitalist Raul Reason for Consult: Chest pain, SOB, elevated BP and pulse Time Notified: 05:55 Call Completed: Yes Discharging clinician: Kanwal Iqbal Psychiatry Exam - Constitutional Vitals: Temp Pulse Resp BP 98.6 F 98 16 214/96 01/14/18 22:10 01/15/18 05:25 01/14/18 22:10 01/15/18 05:25 Additional observations: NO exam performed. Hospital Course Hospital course: Mr. Adams is a 47 year old male admitted with alcohol withdrawal to medical floor and then transferred to for depression with SI. Patient was incorporated into the therapeutic milieu and offer group and individual as well as recreational therapies. He was also offered psychoeducational materials and supportive therapy. Patient complained of chest pain and increased anxiety and agitation. He was given Ativan and then continued to complain of chest pain. Medical consult was called and patient was transferred back to the [facility] for for further alcohol withdrawal treatment. We will follow on the medical floor. - Time Spent with Patient Total time spent providing and/or coordinating discharge services: Assessment and Plan - Patient/Caregiver Discharge Instructions Activity: other - Follow up Plan Follow up with: NONE,PCP [Primary Care Provider] - Disposition: Admitted As Inpatient Quality - Multiple Antipsychotics Patient discharged on 2 or more antipsychotic medications: No Procedures - Procedures Procedures: Crisis Stabilization, Supportive Therapy, Group Therapy, Psychoeducational Therapy
== END 2018-01-15 07:30 | DRG 885 ==
LOC: 1ANU 16:46
PROVIDERS: ADMIT Student in an Organized Health Care Education/Training Program; ATTEND Student in an Organized Health Care Education/Training Program

== ENCOUNTER 2018-01-15 06:42 | Observation (INO) ==
[2018-01-15] MEDS ORDERED: *HR* LORazepam 2 MG/ML VIAL IVP PRN ×6 (10:17→10:31)
[2018-01-15] MEDS ORDERED: Lisinopril 20 MG TABLET PO SCH (10:30)
[2018-01-15] MEDS ORDERED: amLODIPine 5 MG TABLET PO SCH (10:30)
[2018-01-15] MEDS ORDERED: Naloxone 0.4 MG/ML INJ IVP PRN (10:37)
[2018-01-15] MEDS ORDERED: *HR* OxyCODONE Immed Rel 5 MG TABLET PO PRN (10:37)
[2018-01-15] MEDS ORDERED: Acetaminophen 325 MG TABLET PO PRN (10:37)
[2018-01-15] MEDS ORDERED: Ibuprofen 400 MG TABLET PO PRN (10:37)
[2018-01-15] MEDS ORDERED: *HR* Enoxaparin 40 MG/0.4 ML SYRINGE SQ SCH (10:42)
[2018-01-15] MEDS ORDERED: Nicotine 21 MG PATCH.TD24 TD SCH (10:45)
[2018-01-15] MEDS ORDERED: Aspirin Enteric Coated 325 MG Tablet PO SCH (10:45)
[2018-01-15] MEDS ORDERED: 0.9 % Sodium Chloride 1,000 ML IVC SCH (10:45)
--- NOTE | 2018-01-15 10:48 | Internal Med History&Physical ---
Date of Encounter: 01/15/18 Time of Encounter: 10:44 Internal Medicine - H&P: HPI Chief complaint: Chest pain Admitted From: Intrahospital Transfer History of present illness: Mr. Adams is a 47 year old male with a past medical history of alcohol abuse , polysubstance abuse, diabetes 2 not insulin-dependent, suicidal ideation recently discharged from this facility to the psychiatry unit as the patient develops suicidal thoughts. He was treated for alcohol withdrawal. During his hospitalization he refused taking Librium, he was on Precedex and taking multiple doses of Ativan. The patient was sent back to the medical floor as he developed severe hypertension 214/96, heart rate 105 is complaining of excruciating midsternal pain, pressure-like, no radiation complains of sweating. The patient claims he is having tremors but during his examination he had none. Appears to be anxious, says that he is in excruciating pain but at the same time he started flirting with his sitter , has been very disrespectful during his past hospitalization. Has a drug-seeking behavior Past Med Surg Social Fam HX - Past Medical History Medical history: hypertension, other (Alcohol abuse, polysubstance abuse, obesity, suicidal ideation, tobacco abuse, schizophrenia, diabetes type 2 not insulin-dependent, CAD and depression) Psychiatric history: anxiety, depression - Past Surgical History Surgical History: no surgical history - Social History Smoking Status: Current every day smoker Packs per day: One pack per day Smokeless Tobacco Status: No Alcohol use: heavy (Claims he Drinks up to 24 beers with 2 pints of Feroz Isabella), recent Drug use: cocaine, opiates, marijuana, methamphetamine, IV Drug Use - Family History Father Living Status: Mother Living Status: - Additional Family History Additional family history: Father myocardial infarction at the age of 48, mother myocardial infarction at the age of 62 Internal Medicine - H&P: Meds Amlodipine Besylate 10 mg PO DAILY 01/15/18 [History] Gabapentin [Neurontin] 600 mg PO QID 01/15/18 [History] Lisinopril [Zestril] 40 mg PO DAILY 01/15/18 [History] 3 Allergy/AdvReac Type Severity Reaction Status Date / Time Amoxicillin Allergy Hives Verified 01/15/18 09:24 Penicillins Allergy Hives Verified 01/15/18 09:24 quetiapine [From Seroquel] Allergy Hives Verified 01/15/18 09:24 All Systems PM: A 10-system review of systems was performed and is negative for pertinent findings except as documented above in the HPI. Review of systems: No shortness of breath, no abdominal pain, diarrhea or dysuria, no fevers. Other systems out of the 10 reviewed were negative - Constitutional Vitals: Temp Pulse Resp BP Pulse Ox 98.4 F 91 16 196/96 95 01/15/18 08:04 01/15/18 08:04 01/15/18 08:04 01/15/18 08:04 01/15/18 08:04 General appearance: Present: A&O X 3, morbidly obese - Head Head exam: Present: atraumatic, normocephalic - Eye Eye exam: Present: PERRL, conjuntiva pink, sclera anicteric Pupils: Present: PERRL - Neck Neck exam general surgery: Present: supple, trachea midline. Absent: lymphadenopathy - Respiratory Respiratory exam: Present: CTAB. Absent: accessory muscle use, rales, rhonchi, wheezes - Cardiovascular Cardiovascular exam: Present: RRR, +S1, +S2. Absent: diastolic murmur, gallop, rubs, systolic murmur - GI/Abdominal GI/Abdominal exam: Present: normal bowel sounds, soft, no peritoneal signs. Absent: distended, tenderness - Extremities Exam Extremities exam: Present: warm, radial pulses palpable and symmetrical. Absent : calf tenderness, cyanotic, pedal edema - Neurological Exam Neurological exam: Present: CN II-XII intact, oriented X3, no focal deficits. Absent: pronater drift, facial droop, speech deficit - Skin Skin exam: Present: dry, intact - Assessment and plan (1) Chest pain Current Visit: Yes Status: Acute Assessment and plan: Possibly related to accelerated hypertension Aspirin, troponins, nitroglycerin as needed Check lipid panel, order echocardiogram, EKG, consider cardiology consult Telemetry Omeprazole for GI prophylaxis and Lovenox for DVT prophylaxis. The patient will be admitted for observation, full code. Time spent on this admission 40 minutes Qualifiers: Chest pain type: unspecified Qualified Code(s): R07.9 - Chest pain, unspecified (2) Alcohol dependence with withdrawal Current Visit: No Status: Acute Assessment and plan: Continue Librium, hold if sedated Ativan per CIWA scale Consider Precedex Qualifiers: Complication of substance-induced condition: uncomplicated Qualified Code(s ): F10.230 - Alcohol dependence with withdrawal, uncomplicated (3) Suicidal ideation Current Visit: No Status: Acute Assessment and plan: Was pink slipped during last admission Followed by psychiatry, will be transferred to psychiatry unit once he is more stable (4) Polysubstance (excluding opioids) dependence Current Visit: No Status: Chronic (5) Hypertension Current Visit: No Status: Chronic Assessment and plan: Accelerated hypertension Continue amlodipine, lisinopril Hydralazine IV as needed Qualifiers: Hypertension type: essential hypertension Qualified Code(s): I10 - Essential (primary) hypertension (6) Diabetes mellitus Current Visit: No Status: Chronic Assessment and plan: Insulin sliding scale Hemoglobin A1c was 7.3 We will need to be started on metformin Qualifiers: Diabetes mellitus type: type 2 Diabetes mellitus fpc insulin use: without fpc use Diabetes mellitus complication status: with hyperglycemia Qualified Code(s): E11.65 - Type 2 diabetes mellitus with hyperglycemia (7) Tobacco abuse Current Visit: No Status: Chronic Assessment and plan: Smoking cessation counseling, nicotine patch (8) Drug-seeking behavior Current Visit: No Status: Acute - Time Spent With Patient Total time spent is greater than 50% in coordination of care (as documented) at patient's floor/unit and/or counseling patient:
[2018-01-15] MEDS ORDERED: *HR* Dextrose 50 % in Water (Syg) 50 ML SYRINGE IVP PRN (10:55)
[2018-01-15] MEDS ORDERED: Dextrose Gel 15 GM/37.5 ML TUBE PO PRN ×2 (10:55)
[2018-01-15] MEDS ORDERED: Nitroglycerin 0.4 MG TAB.SUBL SL PRN (10:55)
[2018-01-15] MEDS ORDERED: D5% in Water 1,000 ML IVC PRN (10:55)
[2018-01-15] MEDS: Gabapentin 300 MG CAPSULE PO SCH ×2 (11:14→13:17)
[2018-01-15 11:17] VITALS: BP 186/99
[2018-01-15] MEDS ORDERED: Insulin LISPRO 300 UNITS/3 ML VIAL SQ SCH ×2 (11:30→21:00)
--- NOTE | 2018-01-15 13:22 | Psychiatry Progress Note ---
Date of Encounter: 01/15/18 Time of Encounter: 01:15 Subjective Interval history: Chinedu is seen today for follow-up after recent transfer from to medical floor for further treatment of alcohol withdrawal. Patient reports his depression has improved and he wonders if he can be placed back on his old psych meds. He denies SI or HI. He would like to consider outpatient psychiatric follow-up. He was somewhat agitated last night on 1A because he was getting less benzos for his alcohol withdrawal. He seems to have calmed down and is cooperative with the interview. Review of Systems Constitutional: Denies: fever, chills, weakness, weight change Eyes: Denies: eye pain, vision change Ears, Nose, Throat: Denies: ear pain, throat pain, dental pain, hearing loss, congestion Cardiovascular: Denies: chest pain, palpitations, dyspnea on exertion Respiratory: Denies: cough, dyspnea, wheezes Gastrointestinal: Denies: abdominal pain, nausea, vomiting, diarrhea, constipation Musculoskeletal: Reports: joint pain, myalgia Neurological: Reports: paresthesias Psychiatric: Reports: anxiety, abnormal sleep pattern, panic attacks Results - Vital Signs Vital Signs: Temp Pulse Resp BP Pulse Ox 98.6 F 93 20 186/99 93 01/15/18 11:15 01/15/18 11:15 01/15/18 11:15 01/15/18 11:15 01/15/18 11:15 - Labs Labs: Laboratory Results - last 24 hr 01/15/18 10:56 Troponin I < 0.03 Assessment and Plan (1) Depression Current visit: No Status: Chronic Plan: Continue hospitalization, Close observation Additional Plan: Patient denies suicidal ideation. I would recommend continuing sitter considering he is a flight risk. Given his severe withdrawal symptoms he will need to be hospitalized until medical team has cleared him. Consider starting Lexapro 10 mg by mouth daily for depression and anxiety symptoms. Reviewed previous admission from 2016 and patient was taking gabapentin and trazodone. Do not recommend continuing the gabapentin given his history of abusing medications and alcohol. Risks, benefits, side effects, alternatives discussed w/pt: Yes Patient agreeable to treatment: Yes Qualifiers: Depression Type: major depressive disorder Major depression recurrence: recurrent Active/Remission status: currently active Major depression episode severity: moderate Qualified Code(s): F33.1 - Major depressive disorder, recurrent, moderate (2) Alcohol dependence with withdrawal Current visit: No Status: Acute Qualifiers: Complication of substance-induced condition: with unspecified complication Qualified Code(s): F10.239 - Alcohol dependence with withdrawal, unspecified (3) Anxiety Current visit: No Status: Acute Consult Discharge Plan - Plan Referrals: NONE,PCP [Primary Care Provider] - Psychiatry Exam - Constitutional Vitals: Temp Pulse Resp BP Pulse Ox 98.6 F 93 20 186/99 93 01/15/18 11:15 01/15/18 11:15 01/15/18 11:15 01/15/18 11:15 01/15/18 11:15 General appearance: age & developmentally appropriate, obese - Musculoskeletal Gait: other (Patient sitting in bed) Station: relaxed Strength & Tone: normal for patient - Psychiatric Patient Orientation: Yes Person, Yes Time, Yes Place, Yes Circumstance Level of alertness: Alert Behavior: calm, cooperative Psychomotor activity: Normal Eye Contact: Maintains Eye Contact Mood Description: Euthymic/stable Affect description: congruent with mood Speech Volume: Normal Speech pattern: normal rate, normal rhythm, normal tone, fluent, spontaneous Language & Vocabulary: consistent with education Thought Process: Intact, Logical, Goal Oriented Thought Content: No Suicidal ideation, No Homicidal ideation, No Overt delusions Perceptual Disturbances: No Auditory hallucinations, No Visual hallucinations Attention Span Ability: Capable of Focused Attention Memory Description: Grossly Intact Patient Reliability: Questionable Historian Fund of knowledge: Yes average Intelligence Estimate: Average Judgment: Limited Insight: Partial
--- NOTE | 2018-01-15 15:08 | Electrocardiograph Report ---
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
--- NOTE | 2018-01-15 15:26 | Discharge Summary ---
- NOTES TO OUTPATIENT PROVIDER Notes to Outpatient Provider: Metformin, Lisinopril 40 mg daily, amlodipine 10 mg daily and HCTZ 12.5 mg daily were e-prescribed to [facility] on [address] Orders not resulted at time of discharge: Pending orders 01/15/18 10:41 EV echocardiogram Routine Date of Encounter: 01/15/18 Time of Encounter: 15:16 - Discharge Diagnosis (1) Chest pain Priority: Primary Status: Acute Assessment and Plan: Possibly related to accelerated hypertension Qualifiers: Chest pain type: unspecified Qualified Code(s): R07.9 - Chest pain, unspecified (2) Suicidal ideation Priority: Secondary Status: Acute Assessment and Plan: no longer suicidal (3) Polysubstance (excluding opioids) dependence Priority: Secondary Status: Chronic (4) Hypertension Priority: Primary Status: Chronic Qualifiers: Hypertension type: essential hypertension Qualified Code(s): I10 - Essential (primary) hypertension (5) Diabetes mellitus Priority: Secondary Status: Chronic Assessment and Plan: Insulin sliding scale Hemoglobin A1c was 7.3 We will need to be started on metformin Qualifiers: Diabetes mellitus type: type 2 Diabetes mellitus 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 Adams is a 47 year old male with a past medical history of alcohol abuse , polysubstance abuse, diabetes 2 not insulin-dependent, suicidal ideation recently discharged from this facility to the psychiatry unit as the patient developed suicidal thoughts during his past admission. He was treated for alcohol withdrawal. During his hospitalization he refused taking Librium, he was on Precedex and taking multiple doses of Ativan. The patient was sent back to the medical floor as he developed severe hypertension 214/96, heart rate 105, was complaining of excruciating midsternal pain, pressure-like, no radiation complains of sweating. The patient claimed he was having tremors but during this hhospitalization he had none ( He tried to fake tremors but those disappeared once he was not aware he was being seen. Appeared to be anxious at times, said he was in excruciating pain but at the same time he started flirting with his sitter , has been very disrespectful during his past hospitalization. Has a drug-seeking behavior. Was seen again by Psychiatry and a sitter was recommended due to high risk of flight. I spoke with Dr Iqbal on the phone who agreed that the patient is able to make his own decisions, he is no longer a threat to himself or others, did not need to be pink slipped and have the capacity to leave Against medical advice. I spoke to the patient again and explained the risks of not controlling his BP inluding ritter, MIs and . He no longer wants to remain hospitalized and despite many effort to reason with him, he still wants to go AMA DId not want to wait to have his echocardiogram done. He refused to take his Librium on multiple occasions during the last and during this admission, but at this point I don't think he needs It anymore. EKG was unremarkable and troponin was 0.03. Time spent discussing smoking cessation with patient: 3 to 10 minutes - Time Spent with Patient Total time spent providing and/or coordinating discharge services: Greater than 30 minutes (40 min) - Discharge Medications Prescriptions: Amlodipine Besylate 10 mg PO DAILY #30 tablet hydroCHLOROthiazide [Hydrochlorothiazide] 12.5 mg PO DAILY #30 tablet Lisinopril [Zestril] 40 mg PO DAILY #30 tablet metFORMIN [Glucophage] 500 mg PO BIDWM #60 tablet Home Medications: Amlodipine Besylate 10 mg PO DAILY #30 tablet 01/15/18 [Rx] Gabapentin [Neurontin] 600 mg PO QID 01/15/18 [History] Lisinopril [Zestril] 40 mg PO DAILY #30 tablet 01/15/18 [Rx] hydroCHLOROthiazide [Hydrochlorothiazide] 12.5 mg PO DAILY #30 tablet 01/15/18 [ Rx] metFORMIN [Glucophage] 500 mg PO BIDWM #60 tablet 01/15/18 [Rx] Allergies/Adverse Reactions: 3 Allergy/AdvReac Type Severity Reaction Status Date / Time Amoxicillin Allergy Hives Verified 01/15/18 09:24 Penicillins Allergy Hives Verified 01/15/18 09:24 quetiapine [From Seroquel] Allergy Hives Verified 05/10/18 09:24 Date of admission: 01/15/18 07:36 Primary care physician: PCP NONE Consults: 01/15/18 10:37 Consult to Psychiatry [CONS] Routine Consulting Provider: Allan De La O Reason for Consult: SI Call Completed: Yes - Constitutional Vitals: Temp Pulse Resp BP Pulse Ox 98.6 F 93 20 186/99 93 01/15/18 11:15 01/15/18 11:15 01/15/18 11:15 01/15/18 11:15 01/15/18 11:15 General appearance: Present: A&O X 3, morbidly obese Exam: no tremors , no hallucinations - Head Head exam: Present: atraumatic, normocephalic - Eye Eye exam: Present: PERRL, conjuntiva pink, sclera anicteric Pupils: Present: PERRL - Neck Neck exam general surgery: Present: supple, trachea midline. Absent: lymphadenopathy - Respiratory Respiratory exam: Present: CTAB. Absent: accessory muscle use, rales, rhonchi, wheezes - Cardiovascular Cardiovascular exam: Present: RRR, +S1, +S2. Absent: diastolic murmur, gallop, rubs, systolic murmur - GI/Abdominal GI/Abdominal exam: Present: normal bowel sounds, soft, no peritoneal signs. Absent: distended, tenderness - Extremities Exam Extremities exam: Present: warm, radial pulses palpable and symmetrical. Absent : calf tenderness, cyanotic, pedal edema - Neurological Exam Neurological exam: Present: CN II-XII intact, oriented X3, no focal deficits. Absent: pronater drift, facial droop, speech deficit - Skin Skin exam: Present: dry, intact - Patient Status Disposition: Left Against Medical Advice Condition: Fair - Discharge Instructions Follow Up With: NONE,PCP [Primary Care Provider] -
[2018-01-15] MEDS ORDERED: Perflutren Lipid Microsphere 1.3 ML in 0.9 % Sodium Chloride 8.7 ML IVP ONE (20:04)
== END 2018-01-15 15:14 | disposition left against medical advice (07) ==
LOC: 2ANU
PROVIDERS: ADMIT Pediatrics; ATTEND Pediatrics

== ENCOUNTER 2018-01-24 03:03 | Inpatient (IN) ==
[2018-01-24] MEDS ORDERED: *HR* LORazepam 2 MG/ML VIAL IVP PRN ×2 (03:10)
--- NOTE | 2018-01-24 03:17 | Emergency Department Note ---
Disposition Clinical Impression: CHF exacerbation Qualifiers: Heart failure type: unspecified Qualified Code(s): I50.9 - Heart failure, unspecified Alcohol withdrawal Qualifiers: Complication of substance-induced condition: with unspecified complication Qualified Code(s): F10.239 - Alcohol dependence with withdrawal, unspecified Disposition: Admitted As Inpatient Condition: Fair General Adult HPI - General Chief complaint: ED Chest Pain Stated complaint: chest pain Time Seen by Provider: 01/24/18 03:04 Source: patient Limitations: no limitations Nursing Notes Reviewed: Yes Vital Signs Reviewed: Yes - History of Present Illness HPI Narrative: 47-year-old male presents to the emergency department with concern for having shortness of breath. Patient is also having concern for having tremors and shakes. Patient states that he drinks a case of beer every night. Says he drank his last night. Patient states he feels very diaphoretic. He is complaining of some mild chest pain. He is mainly complaining of shortness of breath and feels like he is getting a pocket of fluid on the left side of his lungs. Patient's having increased lower extremities swelling. Patient has any fevers, cough, nausea, vomiting. Pain Scale: 7 - Related Data Home Medications Medication Instructions Recorded Confirmed Gabapentin [Neurontin] 600 mg PO QID 01/15/18 01/15/18 Previous Rx's Medication Instructions Recorded Amlodipine Besylate 10 mg PO DAILY #30 tablet 01/15/18 Lisinopril [Zestril] 40 mg PO DAILY #30 tablet 01/15/18 hydroCHLOROthiazide 12.5 mg PO DAILY #30 tablet 01/15/18 [Hydrochlorothiazide] metFORMIN [Glucophage] 500 mg PO BIDWM #60 tablet 01/15/18 Allergies Allergy/AdvReac Type Severity Reaction Status Date / Time Amoxicillin Allergy Hives Verified 01/15/18 09:24 Penicillins Allergy Hives Verified 01/15/18 09:24 quetiapine [From Seroquel] Allergy Hives Verified 01/15/18 09:24 chlordiazepoxide AdvReac Gastrointestinal Verified 01/24/18 03:11 [From Librium] Upset All systems ED: reviewed and negative except as stated. Review of Systems: As Per HPI Constitutional: Denies: fever Cardiovascular: Denies: chest pain Respiratory: Reports: dyspnea. Denies: cough Gastrointestinal: Denies: abdominal pain, nausea, vomiting Genitourinary: Denies: urgency, dysuria, frequency Musculoskeletal: Denies: back pain Integumentary: Denies: rash Neurological: Denies: headache, weakness, numbness, paresthesias Psychiatric: Denies: anxiety Endocrine: Denies: fatigue Past Medical History - Past Medical History Medical history: Reports: CHF, diabetes, hypertension Surgical history: Reports: no surgical history Psychiatric history: Reports: anxiety, depression - Social History Smoking Status: Current every day smoker Smokeless Tobacco Status: No Alcohol use: Reports: heavy, recent Drug use: Reports: marijuana, prescription drug abuse Physical Exam - General Limitations: no limitations General appearance: alert, in no apparent distress - Head Head exam: atraumatic, normocephalic - Eye Eye exam: Present: normal appearance, EOMI. Absent: scleral icterus - ENT ENT exam: normal exam, normal oropharynx - Neck Neck exam: Present: full ROM, trachea midline. Absent: tenderness, meningismus - Chest Chest inspection: Present: normal inspection, symmetric chest wall rise - Respiratory Respiratory exam: Present: other (Rales throughout). Absent: respiratory distress, wheezes, stridor - Cardiovascular Cardiovascular exam: Present: regular rate, normal rhythm - Abdominal Exam Abdominal exam: Present: soft, Non-Tender. Absent: distention, guarding, rebound - Extremities Exam Extremities exam: Present: pedal edema (2+ pitting edema bilaterally) - Back Exam Back exam: Present: normal inspection. Absent: CVA tenderness (R), CVA tenderness (L) - Neurological Exam Neurological exam: Present: alert, oriented X3 - Psychiatric Psychiatric exam: Present: normal affect, normal mood - Skin Skin exam: Present: warm, dry, intact. Absent: rash Course Vital Signs Temperature 98.0 F 01/24/18 03:04 Pulse Rate 86 01/24/18 03:04 Respiratory Rate 22 01/24/18 03:04 Blood Pressure 139/100 01/24/18 03:04 O2 Sat by Pulse Oximetry 95 01/24/18 03:04 Temperature 98.0 F 01/24/18 03:04 Pulse Rate 85 01/24/18 05:50 Respiratory Rate 20 01/24/18 05:50 Blood Pressure 138/87 01/24/18 05:13 O2 Sat by Pulse Oximetry 96 01/24/18 05:50 Oxygen Delivery Oxygen Delivery Nasal Cannula Medical Decision Making - [facility] Narrative Medical decision making narrative: 47-year-old male presents emergency department with concern for alcohol withdrawal as well as a CHF exacerbation. Patient was merely placed on Cipro protocol as he looked like he was uncomfortable and moderately distressed he was very diaphoretic. Lungs had rales throughout. Chest x-ray reveals pulmonary edema. This similar to her previous one. Patient is given 40 mg of Lasix IV. Troponin was negative. EKG did not reveal any ischemic changes. Potassium was low. He was given 40 mEq of potassium. Patient was admitted to the hospital for further observation and treatment of his alcohol withdrawal as well as diuresis for CHF exacerbation. Patient hemodynamically stable at this time and not in any acute distress. I spoke with the hospitalist and she agreed to accept the admission. Vital Signs Temperature 98.0 F 01/24/18 03:04 Pulse Rate 86 01/24/18 03:04 Respiratory Rate 22 01/24/18 03:04 Blood Pressure 139/100 01/24/18 03:04 O2 Sat by Pulse Oximetry 95 01/24/18 03:04 Temperature 98.0 F 01/24/18 03:04 Pulse Rate 85 01/24/18 05:50 Respiratory Rate 20 01/24/18 05:50 Blood Pressure 138/87 01/24/18 05:13 O2 Sat by Pulse Oximetry 96 01/24/18 05:50 Oxygen Delivery Oxygen Delivery Nasal Cannula Chest X-Ray 01/24/18 03:13 IMPRESSION: No significant change in the findings suggestive of pulmonary venous congestion. D/ / 01/24/2018 06:19:23 Deonte Keith MD / [facility] Interpreting Provider: Deonte Keith MD - Lab Data Result diagrams: 01/24/18 03:22 01/24/18 03:22 Lab Results 01/24/18 01/24/18 01/24/18 Range/Units 03:22 03:22 03:22 WBC 7.8 (4.3-11.1) K/mcL RBC 4.42 (4.19-5.50) M/mcL Hgb 13.9 (12.9-16.9) g/dL Hct 39.5 (37.5-50.1) % MCV 89.4 (83.0-100.0) fL MCH 31.4 (28.0-33.3) pg MCHC 35.2 (31.6-35.5) g/dL RDW 13.6 (11.5-14.5) % Plt Count 201 (140-400) K/mcL MPV 10.2 (9.4-12.4) fL Immature Gran % 0.3 (0-4) % Seg Neutrophils % 61.9 % Lymphocytes % 26.6 % Monocytes % 6.5 % Eosinophils % 4.1 % Basophils % 0.6 % Neutrophils # 4.8 (1.6-8.9) K/mcL Lymphocytes # 2.1 (0.6-4.6) K/mcL Monocytes # 0.5 (0.0-1.3) K/mcL Eosinophils # 0.3 (0.0-0.6) K/mcL Basophils # 0.1 (0.0-0.2) K/mcL Sodium 139 (136-145) mEq/L Potassium 3.0 L (3.5-5.1) mEq/L Chloride 103 (98-107) mEq/L Carbon Dioxide 30 H (23-29) mEq/L BUN 14 (6-20) mg/dL Creatinine 0.74 (0.70-1.30) mg/dL Est GFR ( Amer) > 60 (> 60) Est GFR (Non-Af Amer) > 60 (> 60) BUN/Creatinine Ratio 19 (6-26) Glucose 224 H (70-105) mg/dL Calculated Osmolality 295 (280-300) Calcium 9.7 (8.6-10.3) mg/dL Total Bilirubin 0.2 L (0.3-1.0) mg/dL AST 45 H (13-39) Units/L ALT 48 (7-52) Units/L Alkaline Phosphatase 74 (34-104) Units/L Troponin I < 0.03 (< 0.04) ng/mL B-Natriuretic Peptide 21 (Less than 100) pg/mL Serum Total Protein 6.9 (6.4-8.9) g/dL Albumin 4.0 (3.5-5.7) g/dL Globulin 2.9 (2.4-3.5) g/dL Albumin/Globulin Ratio 1.4 (1.1-2.2) Lipase 32 (11-82) Units/L TSH 1.602 (0.340-5.600) mcIU/mL Urine Color (Yellow) Urine Clarity (Clear) Urine pH (5.0-8.0) pH Units Ur Specific [place] (1.010-1.025) Urine Protein (Neg-Trace) mg/dL Urine Glucose (UA) (Normal) mg/dL Urine Ketones (Negative) mg/dL Urine Blood (Negative) Urine Nitrite (Negative) Urine Bilirubin (Negative) Urine Urobilinogen (Normal) mg/dL Ur Leukocyte Esterase (Negative) Urine Microscopic RBC (0-3) per hpf Urine Microscopic WBC (0-3) per hpf Ur Squamous Epith Cells (None-Few) per lpf Urine Bacteria (None-Few) per hpf Hyaline Casts (None-Few) per lpf Ur Culture Indicated? (NO) Ethyl Alcohol < 10 (Less than 10) mg/dL 01/24/18 Range/Units 03:44 WBC (4.3-11.1) K/mcL RBC (4.19-5.50) M/mcL Hgb (12.9-16.9) g/dL Hct (37.5-50.1) % MCV (83.0-100.0) fL MCH (28.0-33.3) pg MCHC (31.6-35.5) g/dL RDW (11.5-14.5) % Plt Count (140-400) K/mcL MPV (9.4-12.4) fL Immature Gran % (0-4) % Seg Neutrophils % % Lymphocytes % % Monocytes % % Eosinophils % % Basophils % % Neutrophils # (1.6-8.9) K/mcL Lymphocytes # (0.6-4.6) K/mcL Monocytes # (0.0-1.3) K/mcL Eosinophils # (0.0-0.6) K/mcL Basophils # (0.0-0.2) K/mcL Sodium (136-145) mEq/L Potassium (3.5-5.1) mEq/L Chloride (98-107) mEq/L Carbon Dioxide (23-29) mEq/L BUN (6-20) mg/dL Creatinine (0.70-1.30) mg/dL Est GFR ( Amer) (> 60) Est GFR (Non-Af Amer) (> 60) BUN/Creatinine Ratio (6-26) Glucose (70-105) mg/dL Calculated Osmolality (280-300) Calcium (8.6-10.3) mg/dL Total Bilirubin (0.3-1.0) mg/dL AST (13-39) Units/L ALT (7-52) Units/L Alkaline Phosphatase (34-104) Units/L Troponin I (< 0.04) ng/mL B-Natriuretic Peptide (Less than 100) pg/mL Serum Total Protein (6.4-8.9) g/dL Albumin (3.5-5.7) g/dL Globulin (2.4-3.5) g/dL Albumin/Globulin Ratio (1.1-2.2) Lipase (11-82) Units/L TSH (0.340-5.600) mcIU/mL Urine Color Yellow (Yellow) Urine Clarity Cloudy A (Clear) Urine pH 7.0 (5.0-8.0) pH Units Ur Specific [place] 1.018 (1.010-1.025) Urine Protein Negative (Neg-Trace) mg/dL Urine Glucose (UA) 100 H (Normal) mg/dL Urine Ketones Negative (Negative) mg/dL Urine Blood Negative (Negative) Urine Nitrite Negative (Negative) Urine Bilirubin Negative (Negative) Urine Urobilinogen Normal (Normal) mg/dL Ur Leukocyte Esterase Negative (Negative) Urine Microscopic RBC 3-5 H (0-3) per hpf Urine Microscopic WBC 0-3 (0-3) per hpf Ur Squamous Epith Cells Few (None-Few) per lpf Urine Bacteria None Seen (None-Few) per hpf Hyaline Casts None Seen (None-Few) per lpf Ur Culture Indicated? NO (NO) Ethyl Alcohol (Less than 10) mg/dL - EKG Data EKG #1 EKG attestation: Yes I reviewed and interpreted this EKG. EKG results narrative: 01/24/2018 3:11 Ventricular rate 91 bpm, per the 162 ms, QRS duration 99 ms, QT 376 ms, QTC 425 ms, normal axis. Sinus rhythm with a ventricular rate of 91 bpm. There is no evidence of any ischemic changes when compared to a previous one on 01/15/2018. Attestation Statement - Attestation Attestation: I, Mauri Richards, examined this patient and my medical decision-making was reviewed with the SAND OPERATOR/PA/Advanced Practice Nurse/Resident Physician. I agree with the documented findings, disposition and treatment plan as described except to the extent set forth below. 47-year-old male presents emergency Department with concerns of chest pain and shortness of breath. Patient states symptoms have been present over the past 24 -48 hours. Patient describes swelling in the bilateral lower extremities. Patient states the pain is in the center of his chest and does not radiate. Patient reports a history of congestive heart failure. Patient also states he has been trying to curtail his drinking habit and has not consumed EtOH in the past 48 hours. Patient states he has never gone more than 24 hours without an alcoholic drink. Patient states he generally drinks at least 12-24 beers a day with additional shots of liquor. No history of withdrawal seizure per the patient.
[2018-01-24 03:31] LABS: Basophils # 0.1 K/mcL (0.0-0.2); Basophils % 0.6 %; Eosinophils # 0.3 K/mcL (0.0-0.6); Eosinophils % 4.1 %; Hematocrit 39.5 % (37.5-50.1); Hemoglobin 13.9 g/dL (12.9-16.9); Immature Granulocytes % 0.3 % (0-4); Lymphocytes # 2.1 K/mcL (0.6-4.6); Lymphocytes % 26.6 %; Mean Corpuscular HGB Conc 35.2 g/dL (31.6-35.5); Mean Corpuscular Hemoglobin 31.4 pg (28.0-33.3); Mean Corpuscular Volume 89.4 fL (83.0-100.0); Mean Platelet Volume 10.2 fL (9.4-12.4); Monocytes # 0.5 K/mcL (0.0-1.3); Monocytes % 6.5 %; Neutrophils # 4.8 K/mcL (1.6-8.9); Platelet Count 201 K/mcL (140-400); Red Blood Count 4.42 M/mcL (4.19-5.50); Red Cell Distribution Width 13.6 % (11.5-14.5); Segmented Neutrophils % 61.9 %
[2018-01-24] MEDS: *HR* LORazepam 2 MG/ML VIAL IVP PRN ×5 (03:39→23:02)
[2018-01-24] MEDS: Thiamine (B-1) 100 MG, Folic Acid 1 MG, MVI, adult with vitamin K 10 ML in 0.9 % Sodi... IVPB SCH (03:40)
[2018-01-24 03:59] LABS: Troponin I < 0.03 ng/mL (< 0.04)
[2018-01-24 04:00] LABS: Alanine Aminotransferase 48 Units/L (7-52); Albumin/Globulin Ratio 1.4 (1.1-2.2); Alkaline Phosphatase 74 Units/L (34-104); Aspartate Amino Transferase 45 Units/L (13-39); BUN/Creatinine Ratio 19 (6-26); Bilirubin,Total 0.2 mg/dL (0.3-1.0); Blood Urea Nitrogen 14 mg/dL (6-20); Calcium 9.7 mg/dL (8.6-10.3); Carbon Dioxide 30 mEq/L (23-29); Chloride 103 mEq/L (98-107); Ethanol < 10 mg/dL (Less than 10); Globulin 2.9 g/dL (2.4-3.5); Glucose 224 mg/dL (70-105); Lipase 32 Units/L (11-82); Osmolality,Calculated 295 (280-300); Sodium 139 mEq/L (136-145); Total Protein 6.9 g/dL (6.4-8.9); eGFR For African Americans > 60 (> 60); eGFR For Non-African Americans > 60 (> 60)
[2018-01-24] MEDS ORDERED: Furosemide 40 MG/4 ML VIAL IVP ONE (04:02)
[2018-01-24 04:12] LABS: Thyroid Stimulating Hormone 1.602 mcIU/mL (0.340-5.600)
[2018-01-24 05:37] LABS: Bilirubin,Urine Negative (Negative); Blood,Urine Negative (Negative); Clarity,Urine Cloudy (Clear); Color,Urine Yellow (Yellow); Glucose,Urine (UA) 100 mg/dL (Normal); Ketones,Urine Negative (Negative); Leukocyte Esterase,Urine Negative (Negative); Nitrite,Urine Negative (Negative); Protein,Urine Negative (Neg-Trace); Specific Gravity,Urine 1.018 (1.010-1.025); Urobilinogen,Urine Normal (Normal)
[2018-01-24 05:40] LABS: Bacteria,Urine None Seen per hpf (None-Few); Hyaline Casts,Urine None Seen per lpf (None-Few); Squamous Epithelial Cell,Urine Few per lpf (None-Few); WBC,Urine 0-3 per hpf (0-3)
[2018-01-24] MEDS ORDERED: Naloxone 0.4 MG/ML INJ IVP PRN (08:06)
[2018-01-24] MEDS ORDERED: D5% in Water 1,000 ML IVC PRN (08:15)
[2018-01-24] MEDS ORDERED: Dextrose Gel 15 GM/37.5 ML TUBE PO PRN ×2 (08:15)
[2018-01-24] MEDS ORDERED: *HR* Dextrose 50 % in Water (Syg) 50 ML SYRINGE IVP PRN (08:15)
--- NOTE | 2018-01-24 08:24 | Internal Med History&Physical ---
Date of Encounter: 01/24/18 Time of Encounter: 08:17 Internal Medicine - H&P: HPI Chief complaint: Short of breath, alcohol withdrawal Admitted From: Home Plans for Post Hospital Care: Home History of present illness: Mr. Adams is a 47 year old male with history of diabetes mellitus, hypertension, polysubstance abuse, psych disorder, questionable CHF but never had evaluation presents to the emergency department with complaint of shortness of breath, leg swelling and concern of alcohol withdrawal. Last alcohol on night. He drinks more than 12 pack almost daily basis. He has multiple admission in the past for alcohol withdrawal and psychological issues. In ER ciwa protocol started as patient was appearing uncomfortable and moderately distress with diaphoresis. Initial troponin negative, normal BNP, low potassium, chest x-ray with no acute finding, EKG no acute ST-T wave changes. In ER 40 mg IV Lasix and 40 mEq of potassium supplement and Ativan was given. ER physician also had concern about CHF exacerbation therefore called on-call hospitalists for the admission with diagnosis of CHF exacerbation and alcohol withdrawal. During my evaluation Patient denies fever, chills, nausea, vomiting, chest pain , headache, dizziness, abdominal pain, urinary or bowel complaint. His withdrawal symptoms a little better after starting Ativan. Patient denies any suicidal or homicidal thoughts or plan Past Med Surg Social Fam HX - Past Medical History Medical history: CHF, diabetes, hypertension Psychiatric history: anxiety, depression - Past Surgical History Surgical History: no surgical history - Social History Smoking Status: Current every day smoker Smokeless Tobacco Status: No Alcohol use: heavy, recent Drug use: marijuana, prescription drug abuse - Family History Father Living Status: Mother Living Status: Internal Medicine - H&P: Meds Amlodipine Besylate 10 mg PO DAILY #30 tablet 01/15/18 [Rx] Gabapentin [Neurontin] 600 mg PO QID 01/15/18 [History] Lisinopril [Zestril] 40 mg PO DAILY #30 tablet 01/15/18 [Rx] hydroCHLOROthiazide [Hydrochlorothiazide] 12.5 mg PO DAILY #30 tablet 01/15/18 [ Rx] metFORMIN [Glucophage] 500 mg PO BIDWM #60 tablet 01/15/18 [Rx] 3 Allergy/AdvReac Type Severity Reaction Status Date / Time Amoxicillin Allergy Hives Verified 01/15/18 09:24 Penicillins Allergy Hives Verified 01/15/18 09:24 quetiapine [From Seroquel] Allergy Hives Verified 01/15/18 09:24 chlordiazepoxide AdvReac Gastrointestinal Verified 01/24/18 03:11 [From Librium] Upset All Systems PM: as documented above in the HPI. - Constitutional Vitals: Temp Pulse Resp BP Pulse Ox 98.0 F 83 18 173/106 92 01/24/18 08:08 01/24/18 08:08 01/24/18 08:08 01/24/18 08:08 01/24/18 08:08 Exam: General appearance: No acute distress, A&O X 3, obese. Flushed face Head exam: Atraumatic Eye exam: EOMI, PERRLA ENT exam: Moist oral mucosa Neck nontender, supple Respiratory exam: Decreased bibasilar sounds bilaterally Cardiovascular exam: Regular rate and rhythm, no systolic murmur Abdominal exam: Soft, nontender, nondistended, positive bowel sounds Extremities exam: No calf tenderness, +2 pedal edema bilaterally. Slight Shaking tremor in upper extremity Skin-no rash, warm, dry, intact Neurological exam: Alert, awake, oriented 3, CN II-XII intact, no focal deficits. No facial droop. Normal speech. Normal gait. Internal Med - H&P Results - Labs CBC & Chem 7: 01/24/18 03:22 01/24/18 03:22 - Assessment and plan (1) CHF exacerbation Current Visit: Yes Status: Acute Assessment and plan: History of questionable CHF as per patient. Never had cardiac workup such as echocardiogram. He takes hydrochlorothiazide at home. Worsening of symptom and last few days with shortness of breath and leg swelling. Will keep patient in telemetry, serial troponin, echocardiogram. BNP normal. Possibility of diastolic heart failure or alcohol related cardiomyopathy. Baby aspirin started and lipid profile ordered. Will consult frontload driver if needed. IV Lasix 40 mg daily, a strict I&O's, daily weight. Qualifiers: Heart failure type: unspecified Qualified Code(s): I50.9 - Heart failure, unspecified (2) Alcohol withdrawal Current Visit: Yes Status: Acute Assessment and plan: Chronic alcohol abuser. History of DTs in the past. He also had polysubstance abuse disorder. Willing to get rehabilitation therefore will consult social service technician. Also need to get established with psychiatrist. Continue thiamine and folic acid supplementation. [facility] protocol Qualifiers: Complication of substance-induced condition: with unspecified complication Qualified Code(s): F10.239 - Alcohol dependence with withdrawal, unspecified (3) Diabetes mellitus Current Visit: Yes Status: Chronic Assessment and plan: Accu-Chek, SSI coverage. Diabetic diet Qualifiers: Diabetes mellitus type: type 2 Diabetes mellitus intermediate manager insulin use: without halfway use Diabetes mellitus complication status: without complication Qualified Code(s): E11.9 - Type 2 diabetes mellitus without complications (4) Hypertension Current Visit: Yes Status: Acute Assessment and plan: Stable. Home medicine continue Qualifiers: Hypertension type: essential hypertension Qualified Code(s): I10 - Essential (primary) hypertension (5) DVT prophylaxis Current Visit: Yes Status: Acute Assessment and plan: SCDs. (6) Hypokalemia Current Visit: Yes Status: Acute Assessment and plan: Potassium replacement done in the ER. Will repeat potassium level in the evening and replace if needed. Magnesium level ordered. - Time Spent With Patient Total time spent is greater than 50% in coordination of care (as documented) at patient's floor/unit and/or counseling patient:
[2018-01-24] MEDS ORDERED: Furosemide 40 MG/4 ML VIAL IVP SCH (09:00)
[2018-01-24] MEDS: Lisinopril 20 MG TABLET PO SCH (09:05)
[2018-01-24] MEDS: Aspirin Enteric Coated 81 MG Tablet PO SCH (09:05)
[2018-01-24] MEDS: hydroCHLOROthiazide 25 MG TABLET PO SCH (09:06)
[2018-01-24] MEDS: amLODIPine 5 MG TABLET PO SCH (09:06)
[2018-01-24] MEDS: Gabapentin 300 MG CAPSULE PO SCH ×4 (09:06→21:21)
[2018-01-24 09:24] LABS: Magnesium 1.7 mg/dL (1.6-2.6)
[2018-01-24] MEDS: Insulin LISPRO 300 UNITS/3 ML VIAL SQ SCH ×2 (12:28→17:40)
[2018-01-24 12:54] LABS: Troponin I < 0.03 ng/mL (< 0.04)
[2018-01-24] MEDS: Furosemide 40 MG/4 ML VIAL IVP SCH (18:21)
[2018-01-25] MEDS: *HR* LORazepam 2 MG/ML VIAL IVP PRN ×4 (06:10→22:29)
[2018-01-25 07:08] LABS: Basophils % 0.5 %; Eosinophils # 0.3 K/mcL (0.0-0.6); Eosinophils % 3.3 %; Immature Granulocytes % 0.6 % (0-4); Lymphocytes # 2.1 K/mcL (0.6-4.6); Lymphocytes % 25.1 %; Mean Corpuscular HGB Conc 34.1 g/dL (31.6-35.5); Mean Corpuscular Hemoglobin 30.9 pg (28.0-33.3); Mean Corpuscular Volume 90.5 fL (83.0-100.0); Mean Platelet Volume 10.8 fL (9.4-12.4); Monocytes # 0.7 K/mcL (0.0-1.3); Monocytes % 8.1 %; Neutrophils # 5.2 K/mcL (1.6-8.9); Platelet Count 195 K/mcL (140-400); Red Blood Count 4.53 M/mcL (4.19-5.50); Red Cell Distribution Width 13.7 % (11.5-14.5); Segmented Neutrophils % 62.4 %
[2018-01-25 07:29] LABS: BUN/Creatinine Ratio 24 (6-26); Blood Urea Nitrogen 18 mg/dL (6-20); Calcium 9.3 mg/dL (8.6-10.3); Carbon Dioxide 29 mEq/L (23-29); Chloride 103 mEq/L (98-107); Chol/HDL Ratio 5.1 (0-4.9); Cholesterol 197 mg/dL (< 200); Glucose 163 mg/dL (70-105); HDL Cholesterol 39 mg/dL (40-59); LDL Cholesterol,Calculated 135 mg/dL (0-99); Osmolality,Calculated 293 (280-300); Potassium 3.5 mEq/L (3.5-5.1); Sodium 139 mEq/L (136-145); Triglycerides 117 mg/dL (< 150); eGFR For African Americans > 60 (> 60); eGFR For Non-African Americans > 60 (> 60)
[2018-01-25 08:37] LABS: Amphetamine Screen,Urine Negative ng/mL (Cutoff=1000); Barbiturate Screen,Urine Negative ng/mL (Cutoff=200); Benzodiazepines Screen,Urine Positive ng/mL (Cutoff=200); Cannabinoid Screen,Urine Positive ng/mL (Cutoff = 50); Cocaine Screen,Urine Negative ng/mL (Cutoff= 300); Opiate Screen,Urine Negative ng/mL (Cutoff=300); Phencyclidine Screen,Urine Negative ng/mL (Cutoff=25)
[2018-01-25] MEDS: hydroCHLOROthiazide 25 MG TABLET PO SCH (08:44)
[2018-01-25] MEDS: Gabapentin 300 MG CAPSULE PO SCH ×4 (08:44→22:29)
[2018-01-25] MEDS: Insulin LISPRO 300 UNITS/3 ML VIAL SQ SCH ×3 (08:44→17:26)
[2018-01-25] MEDS: amLODIPine 5 MG TABLET PO SCH (08:45)
[2018-01-25] MEDS: Lisinopril 20 MG TABLET PO SCH (08:45)
[2018-01-25] MEDS: Aspirin Enteric Coated 81 MG Tablet PO SCH (08:45)
[2018-01-25] MEDS: Furosemide 40 MG/4 ML VIAL IVP SCH (08:45)
[2018-01-25] MEDS: cloNIDine HCl 0.1 MG TABLET PO PRN (12:09)
--- NOTE | 2018-01-25 13:43 | Cardiology Consult Note ---
Date of Encounter: 01/25/18 Time of Encounter: 08:00 Assessment and Plan (1) Dyspnea Current Visit: Yes Status: Acute Dyspnea likely multifactorial. No evidence of CHF on exam, BNP normal at 21. Echocardiogram with normal EF, no valvular heart disease. Will repeat troponin , but doubt ACS. Consider stress test- inpt vs outpt when recovers from EtOH w/ d. Has multiple risk factors for CAD including family hx of CAD, DM, hyperlipidemia, HTN, tobacco use. Qualifiers: Dyspnea type: dyspnea on exertion Qualified Code(s): R06.09 - Other forms of dyspnea (2) Alcohol withdrawal Current Visit: Yes Status: Acute Per primary service. Qualifiers: Complication of substance-induced condition: with unspecified complication Qualified Code(s): F10.239 - Alcohol dependence with withdrawal, unspecified (3) Hypertension Current Visit: No Status: Chronic Qualifiers: Hypertension type: essential hypertension Qualified Code(s): I10 - Essential (primary) hypertension Discussion w patient/family: The assessment and plan as outlined above was discussed with the patient and/or family members who expressed understanding and agreement. All questions were answered. Thank you for involving us in the care of your patient. Please call with any questions. History of Present Illness Consult date: 01/25/18 Requesting physician: Chayito Rodarte Consult reason: elevated troponin History of present illness: Mr. Adams is a 47 year old male with history of HTN, DM, EtOH abuse, polysubstance abuse presents to [facility] for EtOH w/d. Last had EtOH night. States that he normally drinks 24beers/day as well as unspecified amount of liquor. States had seizure Friday night. States has had DTs in past. Currently admitted and on CIWA protocol. Feels tremulous and diaphoretic currently. Over past year, has noted orthopnea- sleeps on several pillows at night. Also has noticed worsening MENDOZA for past week as well as b/l ankle edema R>L. Denies CP, tightness, pressure. Denies palpitations, lightheadedness, dizziness, syncope. Denies prior cardiac history, testing. Troponin checked yesterday- 0.04, 0.04, 0.06. EKG with NSR, no changes. Echocardiogram last evening- EF 60%, mild concentric LVH, moderate DD, no significant valvular heart disease. Past Med Surg Social Fam HX - Past Medical History Medical history: diabetes, hypertension Psychiatric history: anxiety, depression - Past Surgical History Surgical History: no surgical history - Social History Smoking Status: Current every day smoker Smokeless Tobacco Status: No Alcohol use: heavy (24beers/day in addition to unspecified amount of liquor), recent Drug use: marijuana, prescription drug abuse - Family History Father Living Status: Cause of : [place] Hx Family Cardiac Disorders: Yes ([place] in 50s) Mother Living Status: Cause of : [place] Hx Family Cardiac Disorders: Yes ([place] in 50s) Medications and Allergies Amlodipine Besylate 10 mg PO DAILY #30 tablet 01/15/18 [Rx] Gabapentin [Neurontin] 600 mg PO QID 01/15/18 [History] Lisinopril [Zestril] 40 mg PO DAILY #30 tablet 01/15/18 [Rx] hydroCHLOROthiazide [Hydrochlorothiazide] 12.5 mg PO DAILY #30 tablet 01/15/18 [ Rx] metFORMIN [Glucophage] 500 mg PO BIDWM #60 tablet 01/15/18 [Rx] 3 Allergy/AdvReac Type Severity Reaction Status Date / Time Amoxicillin Allergy Hives Verified 01/24/18 10:00 Penicillins Allergy Hives Verified 01/24/18 10:00 quetiapine [From Seroquel] Allergy Hives Verified 01/24/18 10:00 chlordiazepoxide AdvReac Gastrointestinal Verified 01/24/18 10:00 [From Librium] Upset All Systems Review: The remainder of the systems were reviewed and are negative - Cardiovascular Cardiovascular: as per HPI Physical Examination Vital Signs, Last 4 Hours Temp Pulse Resp BP Pulse Ox 01/25/18 10:57 98.4 F 88 16 172/102 91 General: Conversant, No Apparent Distress, Other HEENT: Atraumatic, Normocephaly, Mucus Membranes Moist Neck: No JVD, Normal carotid pulses Cardiac: Reg Rate and Rhythm, Normal S1 and S2, No Murmur Lungs: Normal Breath Sounds, No Wheeze, Rales, Rhonchi Neuro: Alert and responsive, No focal deficits noted, Other (tremors noted) Abdomen: Soft, Non-Tender Skin: No rashes noted on visualized skin Musculoskeletal: No Chest Wall Tenderness Extremities: No Clubbing, No Cyanosis, Normal Pulses, Other (mild nonpitting R ankle edema) Results 01/25/18 05:49 01/25/18 05:49 Lab Results 01/24/18 01/24/18 01/25/18 14:27 14:27 05:49 WBC 8.4 Hgb 14.0 Hct 41.0 Plt Count 195 Sodium Potassium 3.4 L Chloride Carbon Dioxide BUN Creatinine Glucose Calcium Troponin I 0.06 H* 01/25/18 05:49 WBC Hgb Hct Plt Count Sodium 139 Potassium 3.5 Chloride 103 Carbon Dioxide 29 BUN 18 Creatinine 0.76 Glucose 163 H Calcium 9.3 Troponin I - EKG Interpretation EKG results cardiology: personally reviewed (NSR) Consult Discharge Plan - Plan Referrals: NONE,PCP [Primary Care Provider] -
--- NOTE | 2018-01-25 14:58 | Internal Med Progress Note ---
<Cassius Chang - Last Filed: 01/25/18 14:54> Date of Encounter: 01/25/18 Time of Encounter: 14:55 - Assessment and plan (1) CHF exacerbation Current Visit: Yes Status: Resolved Assessment and plan: Resolved. Echocardiogram shows LVEF 60% with moderate left ventricular diastolic dysfunction Change to oral Lasix. Strict I's and O's. Cardiac, diabetic diet. Qualifiers: Heart failure type: unspecified Qualified Code(s): I50.9 - Heart failure, unspecified (2) Alcohol withdrawal Current Visit: Yes Status: Acute Assessment and plan: Extensive history of alcohol use and also polysubstance abuse disorder. Reports he would like to be detoxed as his girlfriend kicked him out of the house if he does not. Continue Sever protocol, thiamine, folic acid. Patient is high-risk for leaving AGAINST MEDICAL ADVICE as he has tenderness in the past. Added clonidine when necessary for hypertension. Qualifiers: Complication of substance-induced condition: with unspecified complication Qualified Code(s): F10.239 - Alcohol dependence with withdrawal, unspecified (3) Diabetes mellitus Current Visit: Yes Status: Chronic Assessment and plan: Accu-Chek, SSI coverage. Diabetic diet Qualifiers: Diabetes mellitus type: type 2 Diabetes mellitus oysterman insulin use: without oysterman use Diabetes mellitus complication status: without complication Qualified Code(s): E11.9 - Type 2 diabetes mellitus without complications (4) Hypertension Current Visit: Yes Status: Chronic Assessment and plan: Patient is hypertensive likely secondary to alcohol withdrawal. Add clonidine when necessary. Continue hydrochlorothiazide and lisionpril Qualifiers: Hypertension type: essential hypertension Qualified Code(s): I10 - Essential (primary) hypertension (5) DVT prophylaxis Current Visit: Yes Status: Acute Assessment and plan: SCDs. (6) Hypokalemia Current Visit: Yes Status: Resolved Assessment and plan: resolved - Time Spent With Patient Total time spent is greater than 50% in coordination of care (as documented) at patient's floor/unit and/or counseling patient: - Subjective Interval history: Patient admitted for shortness of breath and alcohol withdrawal. She drinks more than 12 pack on a daily basis. He has had multiple admissions in the past month for the same reason. Patient is very anxious on entering the room. He has tremors of his upper extremity which resolve when patient is distracted. He is asking for increased dose of Ativan. He reports Librium makes him nauseous. Patient has had DTs and seizures in the past secondary to alcohol withdrawal. - Constitutional Vitals: Temp Pulse Resp BP Pulse Ox 98.4 F 88 16 172/102 91 01/25/18 10:57 01/25/18 10:57 01/25/18 10:57 01/25/18 10:57 01/25/18 10:57 - Other Additional findings: General: Anxious HEENT: Head atraumatic, normocephalic, EOMI, PERRL, neck nontender to palpation , absent lymphadenopathy, Moist Mucous Membranes, Heart: Regular rate and rhythm with no murmur Lungs: Clear to auscultation bilaterally Abdomen: Soft nontender, nondistended positive bowel sounds Skin: warm and dry, absent rash Extremities: Absent pedal edema, Neuro: Alert oriented 3 Psych: Denies HI/SI. Poor insight, poor judgment Vascular: Pedal and radial pulses 2 out of 4 Internal Medicine: Result - Labs CBC & Chem 7: 01/25/18 05:49 01/25/18 05:49 Labs: Short CBC 01/25/18 Range/Units 05:49 WBC 8.4 (4.3-11.1) K/mcL Hgb 14.0 (12.9-16.9) g/dL Hct 41.0 (37.5-50.1) % Plt Count 195 (140-400) K/mcL Neutrophils # 5.2 (1.6-8.9) K/mcL BMP 01/24/18 01/25/18 14:27 05:49 Sodium 139 Potassium 3.4 L 3.5 Chloride 103 Carbon Dioxide 29 BUN 18 Creatinine 0.76 Glucose 163 H Calcium 9.3 Cardiac Enzymes 01/24/18 Range/Units 14:27 Troponin I 0.06 H* (< 0.04) ng/mL - Impressions Impressions Echocardiogram 01/24/18 08:13 Impressions: LVEF 60%. Normal LV chamber size and function. Mild concentric left ventricular hypertrophy. Moderate left ventricular diastolic dysfunction. Mildly dilated right ventricle with normal function. No evidence of pulmonary hypertension. No significant valvular dysfunction. Left Ventricular Wall Motion: Rest Echo Findings All wall segments showed normal motion. Findings: Study Quality * Technically adequate exam. ECG Findings * Normal sinus rhythm. Left Ventricle * LVEF 60%. * Normal LV chamber size and function. * Mild concentric left ventricular hypertrophy. * Moderate left ventricular diastolic dysfunction. Right Ventricle * Mildly dilated right ventricle with normal function. Left Atrium * Moderately dilated left atrium. Right Atrium * Mildly dilated right atrium. Aortic Valve * Aortic valve not well visualized. * No aortic regurgitation. * No aortic stenosis. Mitral Valve * Normal mitral valve structure and function. * No mitral regurgitation. * No mitral stenosis. Tricuspid Valve * Normal tricuspid valve structure and function. * Trace tricuspid regurgitation. * No evidence of pulmonary hypertension. Pulmonic Valve * Pulmonic valve not well visualized. Aorta * Normally sized aortic root. Pericardium * The pericardium appears normal. IVC * Normal IVC dimensions and inspiratory collapse. Pulmonary Artery * Normal visualized portions of the main pulmonary artery. Ankle X-Ray 01/25/18 00:11 IMPRESSION: 1. No acute osseous abnormalities involving the right ankle. 2. Soft tissue swelling around the right ankle joint. D/ / 01/25/2018 05:18:30 Deonte Keith MD / amanda Interpreting Provider: Deonte Keith MD Consult Discharge Plan - Plan Referrals: NONE,PCP [Primary Care Provider] - <Davi Mendez - Last Filed: 01/25/18 18:28> Date of Encounter: 01/25/18 - Assessment and plan (1) CHF exacerbation Current Visit: Yes Status: Resolved Qualifiers: Heart failure type: diastolic Qualified Code(s): I50.33 - Acute on chronic diastolic (congestive) heart failure (2) Alcohol withdrawal Current Visit: Yes Status: Acute Qualifiers: Complication of substance-induced condition: uncomplicated Qualified Code(s ): F10.230 - Alcohol dependence with withdrawal, uncomplicated (3) Diabetes mellitus Current Visit: Yes Status: Chronic Qualifiers: Diabetes mellitus type: type 2 Diabetes mellitus oysterman insulin use: without intermediate use Diabetes mellitus complication status: without complication Qualified Code(s): E11.9 - Type 2 diabetes mellitus without complications (4) Hypertension Current Visit: Yes Status: Chronic Qualifiers: Hypertension type: essential hypertension Qualified Code(s): I10 - Essential (primary) hypertension (5) DVT prophylaxis Current Visit: Yes Status: Acute (6) Hypokalemia Current Visit: Yes Status: Resolved - Time Spent With Patient Total time spent is greater than 50% in coordination of care (as documented) at patient's floor/unit and/or counseling patient: - Constitutional Vitals: Temp Pulse Resp BP Pulse Ox 98.2 F 63 16 154/101 96 01/25/18 15:50 01/25/18 15:50 01/25/18 15:50 01/25/18 15:50 01/25/18 15:50 Internal Medicine: Result - Labs CBC & Chem 7: 01/25/18 05:49 01/25/18 05:49 - Attending Attestation I examined this patient and my medical decision-making was reviewed with the Resident Physician on 01/25/18. I agree with the documented findings, disposition and treatment plan as described except to the extent set forth below. Mr Adams is currently admitted for ETOH withdrawal and CHF. He remains moderate to high risk due to potential for worsening clinical status. Mr Adams is resting. He has been requesting more Ativan despite sleeping. No fever. BP has been high. Diuresed today. Exam alert Comfortable Mucus membranes dry Heart reg No wheeze I/P 1. CHF 2. ETOH Further diagnoses and plan as above.
[2018-01-25 15:13] LABS: Estimated Average Glucose 163 mg/dl; Hemoglobin A1C 7.3 %
[2018-01-25] MEDS: hydrALAZINE 10 MG TABLET PO SCH (16:15)
[2018-01-25] MEDS: Acetaminophen 325 MG TABLET PO PRN (16:16)
[2018-01-25] MEDS: Thiamine (B-1) 100 MG, Folic Acid 1 MG, MVI, adult with vitamin K 10 ML in 0.9 % Sodi... IVPB SCH (16:16)
[2018-01-26] MEDS: hydrALAZINE 10 MG TABLET PO SCH ×5 (04:07→22:06)
[2018-01-26] MEDS: *HR* LORazepam 2 MG/ML VIAL IVP PRN ×5 (05:43→22:04)
[2018-01-26 07:21] LABS: BUN/Creatinine Ratio 22 (6-26); Blood Urea Nitrogen 16 mg/dL (6-20); Calcium 8.9 mg/dL (8.6-10.3); Carbon Dioxide 28 mEq/L (23-29); Chloride 102 mEq/L (98-107); Glucose 164 mg/dL (70-105); Osmolality,Calculated 289 (280-300); Potassium 3.3 mEq/L (3.5-5.1); Sodium 137 mEq/L (136-145); eGFR For African Americans > 60 (> 60); eGFR For Non-African Americans > 60 (> 60)
[2018-01-26] MEDS: amLODIPine 5 MG TABLET PO SCH (08:53)
[2018-01-26] MEDS: hydroCHLOROthiazide 25 MG TABLET PO SCH (08:53)
[2018-01-26] MEDS: Lisinopril 20 MG TABLET PO SCH (08:54)
[2018-01-26] MEDS: Aspirin Enteric Coated 81 MG Tablet PO SCH (08:54)
[2018-01-26] MEDS ORDERED: Furosemide 40 MG TABLET PO SCH (09:00)
[2018-01-26 10:00] LABS: Troponin I < 0.03 ng/mL (< 0.04)
[2018-01-26] MEDS: Insulin LISPRO 300 UNITS/3 ML VIAL SQ SCH ×3 (10:24→18:01)
--- NOTE | 2018-01-26 10:28 | Cardiology Progress Note ---
Date of Encounter: 01/26/18 Time of Encounter: 09:15 Assessment and Plan (1) Alcohol withdrawal Current Visit: Yes Status: Acute Per cardiology: -ETOH withdrawal being managed by primary service. Qualifiers: Complication of substance-induced condition: uncomplicated Qualified Code(s ): F10.230 - Alcohol dependence with withdrawal, uncomplicated (2) Elevated troponin Current Visit: Yes Status: Acute Per cardiology: -Troponin negative x2, 0.06, then negative in the setting of HTN, ETOH withdrawal. -Denies chest pain. -No acute ischemic ECG changes. -TTE with LVEF 60%, mild concentric LVH, moderate diastolic dysufnction, mildly dilated RV with normal function, no segmental wall motion abnormalities. -Do not suspect NSTEMI, suspect demand ischemia related to above. No cardiac rehab consult warranted. -Cardiology will sign off. Will follow in outpateint setting, follow up set. (3) Dyspnea Current Visit: Yes Status: Acute Per cardiology: -Dyspnea likely multifactorial. -No evidence of CHF on exam, - BNP normal at 21. -Echocardiogram with normal EF, no valvular heart disease. -Consider stress test- inpt vs outpt when recovers from EtOH w/d. -Has multiple risk factors for CAD including family hx of CAD, DM, hyperlipidemia, HTN, tobacco use. -Will follow in outpatient setting. Qualifiers: Dyspnea type: dyspnea on exertion Qualified Code(s): R06.09 - Other forms of dyspnea (4) Hypertension Current Visit: Yes Status: Chronic Per cardiology: -HTN in the setting of ETOH withdrawal. -PRN medications ordered per primary service. -Will follow in outpatient setting. Qualifiers: Hypertension type: essential hypertension Qualified Code(s): I10 - Essential (primary) hypertension Discussion w patient/family: The assessment and plan as outlined above was discussed with the patient who expressed understanding and agreement. All questions were answered. Thank you for involving us in the care of your patient. Please call with any questions. Discussed and reviewed with . Subjective Principal diagnosis: ETOH withdrawl. Interval history: Patient denies chest pain. Reports dyspnea is about baseline. Objective Vital Signs, Last 4 Hours Temp Pulse Resp BP Pulse Ox 01/26/18 06:34 98.0 F 74 20 180/77 93 General: Conversant, No Apparent Distress HEENT: Atraumatic, Normocephaly, Mucus Membranes Moist Neck: No JVD, Normal carotid pulses Cardiac: Reg Rate and Rhythm, Normal S1 and S2, No Murmur Lungs: Normal Breath Sounds, No Wheeze, Rales, Rhonchi Neuro: Alert and responsive, No focal deficits noted Abdomen: Soft, Non-Tender Skin: No rashes noted on visualized skin Musculoskeletal: No Chest Wall Tenderness Extremities: No Clubbing, No Cyanosis, No Edema, Normal Pulses Results 01/25/18 05:49 01/26/18 06:14 Lab Results Impressions Ankle X-Ray 01/25/18 00:11 IMPRESSION: 1. No acute osseous abnormalities involving the right ankle. 2. Soft tissue swelling around the right ankle joint. D/ / 01/25/2018 05:18:30 Deonte Keith MD / amanda Interpreting Provider: Deonte Keith MD Active Medications Acetaminophen (Tylenol) 650 mg PO Q6HR PRN PRN Reason: Mild Pain Stop: 07/27/18 00:12 Last Admin: 01/25/18 16:16 Dose: 650 mg Amlodipine Besylate (Norvasc) 10 mg PO DAILY JUSTYNA Stop: 07/26/18 09:01 Last Admin: 01/26/18 08:53 Dose: 10 mg Aspirin (Aspirin Ec) 81 mg PO DAILY JUSTYNA Stop: 07/26/18 09:01 Last Admin: 01/26/18 08:54 Dose: 81 mg Atorvastatin Calcium (Lipitor) 20 mg PO HS JUSTYNA Stop: 07/26/18 21:01 Last Admin: 01/25/18 22:28 Dose: 20 mg Clonidine HCl (Clonidine Hcl) 0.1 mg PO TID PRN PRN Reason: Hypertension Stop: 07/27/18 15:01 Last Admin: 01/25/18 12:09 Dose: 0.1 mg Dextrose/Water (Dextrose 50% (Syg)) 25 ml IVP AD PRN PRN Reason: Hypoglycemia Stop: 07/26/18 08:16 Folic Acid (Folic Acid) 1 mg PO DAILY JUSTYNA Stop: 07/29/18 09:01 Furosemide (Lasix) 40 mg PO DAILY JUSTYNA Stop: 07/28/18 09:01 Last Admin: 01/26/18 08:55 Dose: 40 mg Gabapentin (Neurontin) 600 mg PO QID [facility] Stop: 07/26/18 09:01 Last Admin: 01/25/18 22:29 Dose: 600 mg Glucagon (Glucagen) 1 mg IM ONCE PRN PRN Reason: Hypoglycemia Stop: 07/26/18 08:16 Glucose (Gluctose) 15 gm PO ONCE PRN PRN Reason: Hypoglycemia Stop: 07/26/18 08:16 Glucose (Gluctose) 30 gm PO ONCE PRN PRN Reason: Hypoglycemia Stop: 07/26/18 08:16 Hydralazine HCl (Hydralazine) 10 mg PO Q6HR [facility] Stop: 07/27/18 18:01 Last Admin: 01/26/18 07:27 Dose: 10 mg Hydrochlorothiazide (Hydrochlorothiazide) 12.5 mg PO DAILY [facility] PRN Reason: Protocol Stop: 07/26/18 09:01 Last Admin: 01/26/18 08:53 Dose: 12.5 mg Thiamine HCl 100 mg/ Folic Acid 1 mg/ Multivitamins 10 ml / Sodium Chloride 511.2 mls @ 85.2 mls/hr IVPB DAILY@1800 [facility] Stop: 01/26/18 23:59 Last Infusion: 01/26/18 04:10 Dose: Infused Dextrose (Dextrose 5%) 1,000 mls @ 100 mls/hr IVC .Q10H PRN PRN Reason: HYPOGLYCEMIA Stop: 07/26/18 08:16 Insulin Human Lispro (Humalog) 0 units SQ TIDAC [facility] PRN Reason: Protocol Stop: 07/26/18 11:31 Last Admin: 01/26/18 10:24 Dose: Not Given Lisinopril (Zestril) 40 mg PO DAILY [facility] Stop: 07/26/18 09:01 Last Admin: 01/25/18 08:45 Dose: 40 mg Lorazepam (Ativan) 1 mg IVP Q1H PRN PRN Reason: Alcohol Withdrawal Stop: 07/26/18 03:11 Last Admin: 01/24/18 05:48 Dose: 1 mg Lorazepam (Ativan) 4 mg IVP Q4HR PRN PRN Reason: CIWA Score of 22-45 Stop: 07/26/18 03:11 Lorazepam (Ativan) 2 mg IVP Q4HR PRN PRN Reason: CIWA Score of 10-21 Stop: 07/26/18 03:11 Last Admin: 01/26/18 09:16 Dose: 2 mg Naloxone HCl (Narcan) 0.4 mg IVP Q2MIN PRN PRN Reason: SEE COMMENTS Stop: 07/26/18 08:07 Nicotine (Nicoderm) 14 mg TD DAILY PRN; Protocol PRN Reason: Smoking Stop: 07/26/18 08:14 Thiamine HCl (Vitamin B-1) 100 mg PO DAILY JUSTY[facility] Stop: 07/29/18 09:01 Laboratory Tests 01/24/18 01/24/18 01/24/18 03:22 08:33 14:27 Creatinine Troponin I < 0.03 < 0.03 0.06 H* 01/26/18 06:14 Creatinine 0.72 Troponin I < 0.03 - Imaging and Cardiology Chest Xray: report reviewed Echo: report reviewed - EKG Interpretation EKG results cardiology: other (Telemetry reviewed with average HR previous 12 hours noted to be 74, SR. PVCs and PACs noted.) Consult Discharge Plan - Plan Referrals: NONE,PCP [Primary Care Provider] -
[2018-01-26] MEDS: Gabapentin 300 MG CAPSULE PO SCH ×4 (10:29→20:32)
--- NOTE | 2018-01-26 13:05 | Internal Med Progress Note ---
<Cassius Chang - Last Filed: 01/26/18 13:03> Date of Encounter: 01/26/18 Time of Encounter: 13:03 - Assessment and plan (1) Alcohol withdrawal Current Visit: Yes Status: Acute Assessment and plan: Extensive history of alcohol use and also polysubstance abuse disorder. Reports he would like to be detoxed as his girlfriend kicked him out of the house if he does not. Continue CIWA protocol, thiamine, folic acid. Patient is high-risk for leaving AGAINST MEDICAL ADVICE as he has tenderness in the past. Added clonidine and hydralazine for hypertension. continue to monitor Qualifiers: Complication of substance-induced condition: uncomplicated Qualified Code(s ): F10.230 - Alcohol dependence with withdrawal, uncomplicated (2) CHF exacerbation Current Visit: Yes Status: Resolved Assessment and plan: Resolved. Echocardiogram shows LVEF 60% with moderate left ventricular diastolic dysfunction Change to oral Lasix. Strict I's and O's. Cardiac, diabetic diet. Qualifiers: Heart failure type: diastolic Qualified Code(s): I50.33 - Acute on chronic diastolic (congestive) heart failure (3) Diabetes mellitus Current Visit: Yes Status: Chronic Assessment and plan: Accu-Chek, SSI coverage. Diabetic diet controlled. Qualifiers: Diabetes mellitus type: type 2 Diabetes mellitus long term care pharmacist insulin use: without long term care pharmacist use Diabetes mellitus complication status: without complication Qualified Code(s): E11.9 - Type 2 diabetes mellitus without complications (4) Hypertension Current Visit: Yes Status: Chronic Assessment and plan: Patient is hypertensive likely secondary to alcohol withdrawal. continue clonidine and hydralazine Continue hydrochlorothiazide and lisinopril Qualifiers: Hypertension type: essential hypertension Qualified Code(s): I10 - Essential (primary) hypertension (5) DVT prophylaxis Current Visit: Yes Status: Acute Assessment and plan: SCDs. (6) Hypokalemia Current Visit: Yes Status: Resolved Assessment and plan: replacing. (7) Elevated troponin Current Visit: Yes Status: Acute Assessment and plan: 0.03>0.03>0.06>0.03 cardiology evaluated patient likely 2nd t alcohol withdrawal EKG NSR with no st t wave changes. TTE LVEF 60% without wall motion abnormalities no further intervention needed - Time Spent With Patient Total time spent is greater than 50% in coordination of care (as documented) at patient's floor/unit and/or counseling patient: - Subjective Interval history: no acute events overnight. Patient continues to have tremors which are destructible. He has no other complaints. - Constitutional Vitals: Temp Pulse Resp BP Pulse Ox 98.1 F 99 20 167/89 93 01/26/18 10:36 01/26/18 10:36 01/26/18 10:36 01/26/18 10:36 01/26/18 10:36 - Other Additional findings: General: Anxious but improved from yesterday Heart: Regular rate and rhythm with no murmur Lungs: Clear to auscultation bilaterally Abdomen: Soft nontender, nondistended positive bowel sounds Skin: warm and dry, absent rash Extremities: Absent pedal edema, Neuro: Alert oriented 3 Psych: Denies HI/SI. Poor insight, poor judgment Vascular: Pedal and radial pulses 2 out of 4 Internal Medicine: Result - Labs CBC & Chem 7: 01/25/18 05:49 01/26/18 06:14 Labs: BMP 01/26/18 06:14 Sodium 137 Potassium 3.3 L Chloride 102 Carbon Dioxide 28 BUN 16 Creatinine 0.72 Glucose 164 H Calcium 8.9 Cardiac Enzymes 01/26/18 Range/Units 06:14 Troponin I < 0.03 (< 0.04) ng/mL Consult Discharge Plan - Plan Referrals: NONE,PCP [Primary Care Provider] - <Davi Mendez - Last Filed: 01/26/18 17:20> Date of Encounter: 01/26/18 - Assessment and plan (1) Alcohol withdrawal Current Visit: Yes Status: Acute Qualifiers: Complication of substance-induced condition: uncomplicated Qualified Code(s ): F10.230 - Alcohol dependence with withdrawal, uncomplicated (2) CHF exacerbation Current Visit: Yes Status: Resolved Qualifiers: Heart failure type: diastolic Qualified Code(s): I50.33 - Acute on chronic diastolic (congestive) heart failure (3) Hypokalemia Current Visit: Yes Status: Acute (4) Diabetes mellitus Current Visit: Yes Status: Chronic Qualifiers: Diabetes mellitus type: type 2 Diabetes mellitus fci insulin use: without fci use Diabetes mellitus complication status: without complication Qualified Code(s): E11.9 - Type 2 diabetes mellitus without complications (5) Hypertension Current Visit: Yes Status: Chronic Qualifiers: Hypertension type: essential hypertension Qualified Code(s): I10 - Essential (primary) hypertension (6) Elevated troponin Current Visit: Yes Status: Acute (7) Morbid obesity with BMI of 50.0-59.9, adult Current Visit: No Status: Chronic (8) DVT prophylaxis Current Visit: Yes Status: Acute - Time Spent With Patient Total time spent is greater than 50% in coordination of care (as documented) at patient's floor/unit and/or counseling patient: - Constitutional Vitals: Temp Pulse Resp BP Pulse Ox 97.8 F 106 20 146/89 92 01/26/18 15:13 01/26/18 15:13 01/26/18 15:13 01/26/18 15:13 01/26/18 15:13 Internal Medicine: Result - Labs CBC & Chem 7: 01/25/18 05:49 01/26/18 06:14 Labs: BMP 01/26/18 06:14 Sodium 137 Potassium 3.3 L Chloride 102 Carbon Dioxide 28 BUN 16 Creatinine 0.72 Glucose 164 H Calcium 8.9 Cardiac Enzymes 01/26/18 Range/Units 06:14 Troponin I < 0.03 (< 0.04) ng/mL - Attending Attestation I examined this patient and my medical decision-making was reviewed with the Resident Physician on 01/26/18. I agree with the documented findings, disposition and treatment plan as described except to the extent set forth below. Mr Adams is currently admitted for acute ETOH withdrawal. He remains moderate to high risk due to potential for worsening clinical status. Mr Adams is requesting more Ativan for "shakes." Denies dyspnea at this time. No fever or chills. No cough. Exam alert Comfortable "Shaking" though appears to be volitional movement. Stops when distracted. No tremor. Mucus membranes dry Not tachy at this time No wheeze I/P 1. CHF exac - resolved 2. ETOH withdrawal - will add Phenobarbital for 5 doses. Further diagnoses and plan as above.
--- NOTE | 2018-01-26 14:20 | Electrocardiograph Report ---
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
[2018-01-26] MEDS: Thiamine (B-1) 100 MG, Folic Acid 1 MG, MVI, adult with vitamin K 10 ML in 0.9 % Sodi... IVPB SCH (18:08)
[2018-01-26] MEDS: PHENobarbital 32.4 MG TABLET PO SCH (20:33)
[2018-01-27] MEDS: *HR* LORazepam 2 MG/ML VIAL IVP PRN ×5 (02:26→22:25)
[2018-01-27] MEDS: hydrALAZINE 10 MG TABLET PO SCH ×4 (06:40→22:26)
[2018-01-27 06:48] LABS: BUN/Creatinine Ratio 21 (6-26); Blood Urea Nitrogen 14 mg/dL (6-20); Calcium 8.9 mg/dL (8.6-10.3); Carbon Dioxide 29 mEq/L (23-29); Chloride 103 mEq/L (98-107); Glucose 157 mg/dL (70-105); Osmolality,Calculated 290 (280-300); Potassium 3.5 mEq/L (3.5-5.1); Sodium 138 mEq/L (136-145); eGFR For African Americans > 60 (> 60); eGFR For Non-African Americans > 60 (> 60)
[2018-01-27] MEDS: Thiamine (B-1) 100 MG TABLET PO SCH (08:11)
[2018-01-27] MEDS: amLODIPine 5 MG TABLET PO SCH (08:11)
[2018-01-27] MEDS: Lisinopril 20 MG TABLET PO SCH (08:11)
[2018-01-27] MEDS: Folic Acid 1 MG TABLET PO SCH (08:11)
[2018-01-27] MEDS: PHENobarbital 32.4 MG TABLET PO SCH ×2 (08:11→21:23)
[2018-01-27] MEDS: Gabapentin 300 MG CAPSULE PO SCH ×4 (08:11→21:22)
[2018-01-27] MEDS: Aspirin Enteric Coated 81 MG Tablet PO SCH (08:11)
[2018-01-27] MEDS: hydroCHLOROthiazide 25 MG TABLET PO SCH (08:11)
[2018-01-27] MEDS: Acetaminophen 325 MG TABLET PO PRN (08:13)
[2018-01-27] MEDS: Insulin LISPRO 300 UNITS/3 ML VIAL SQ SCH ×3 (08:18→17:24)
[2018-01-27] MEDS ORDERED: Ondansetron 4 MG/2 ML VIAL IVP PRN (14:32)
--- NOTE | 2018-01-27 16:42 | Internal Med Progress Note ---
Date of Encounter: 01/27/18 Time of Encounter: 10:10 - Assessment and plan (1) Morbid obesity with BMI of 50.0-59.9, adult Current Visit: Yes Status: Chronic Assessment and plan: Chronic. Encourage lifestyle modifications. (2) CHF exacerbation Current Visit: Yes Status: Resolved Assessment and plan: Resolved. Pt appears to be euvolemic. No peripheral edema, lungs clear and diminished. Patient was admitted for acute exacerbation on chronic diastolic CHF. Patient remains on his normal dose of hydrochlorothiazide 12.5 mg by mouth daily. Echocardiogram shows an LVEF of 60%, mild concentric LV hypertrophy, moderate LV DD and no significant valvular dysfunction. Continue telemetry O2 as needed to maintain sats greater than 92% Qualifiers: Heart failure type: diastolic Qualified Code(s): I50.33 - Acute on chronic diastolic (congestive) heart failure (3) Alcohol withdrawal Current Visit: Yes Status: Acute Assessment and plan: Patient reports that his last drink of alcohol was 01/22/18 prior to admission. CIWA protocol ordered, patient is using it routinely. He states that he is unaware if he is having auditory or visual hallucinations. He states that he is having tremors, patient appears to be alternating lifting right and left leg off the bed rapidly and has no tremors anywhere else. His hands are steady. He does report that he is having some nausea, ondansetron ordered IV every 6 hours 4 mg. CIWA protocol reduced to 1 mg every 4 hours as needed. Continue thiamine, folic acid Clonidine and hydralazine added for hypertension. Seizure precautions on bedside. Qualifiers: Complication of substance-induced condition: uncomplicated Qualified Code(s ): F10.230 - Alcohol dependence with withdrawal, uncomplicated (4) Diabetes mellitus Current Visit: Yes Status: Chronic Assessment and plan: Diabetes uncontrolled. A1c is 7.3%. Continuous sliding scale insulin, diabetic diet, Accu-Cheks before meals and at bedtime. 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 Patient has clonidine 0.1 mg by mouth 3 times a day prn SBP > 160mHg, as well as hydralazine 10 mg every 6 hours by mouth Home dose of lisinopril 40 mg has been continued. Continue to monitor VS Continue telemetry Qualifiers: Hypertension type: essential hypertension Qualified Code(s): I10 - Essential (primary) hypertension (6) DVT prophylaxis Current Visit: Yes Status: Acute Assessment and plan: SCDs. Pt has been ambulatory on the unit today. (7) Hypokalemia Current Visit: Yes Status: Acute Assessment and plan: Resolved. WNL today. Continue to monitor, pt is on HCTZ. (8) Elevated troponin Current Visit: Yes Status: Acute Assessment and plan: Troponin mildly elevated on admission, has returned to WNL 01/26. Elevated in the setting of hypertension, alcohol withdrawal. Pt has been evaluated by cardiology. Patient denies any chest pain. EKG negative for ischemic changes. Echocardiogram with LVEF of 60%, mild concentric LVH, moderate DD, mildly dilated RV with normal function and no significant valvular dysfunction. Elevated due to demand ischemia from uncontrolled hypertension and alcohol withdrawal. Plan as above. - Time Spent With Patient Total time spent is greater than 50% in coordination of care (as documented) at patient's floor/unit and/or counseling patient: less than 15 minutes - Subjective Interval history: Patient was seen and assessed at bedside at 10:10 AM. Patient is alert, awake. He is requested that I increased the amount of Ativan because it is not helping him. He is placed on phenobarbital that he states is not helping him. I explained to the patient that I will actually need to cut back on the amount of Ativan so that he can be weaned for discharge. Patient reports his last drink was 01/22/18. Patient reports that he is having tremors, however they were incongruent with withdrawal tremors. Patient appeared to be alternating shaking/lifting bilateral lower extremities from the bed. Patient did not have any upper extremity tremors. Patient states that he is not sure if he is having auditory or visual hallucinations. He denies any headache, vision changes, chest pain shortness of breath, abdominal pain, vomiting or diarrhea. He does report that he is having nausea with all by mouth intake. Patient was encouraged to ambulate today, patient ambulated around the unit independently. He reported when he got back to his room that he was short of breath and very hot. Patient reports he does not have air conditioning at home and is not ready to go home yet tonight. We will be ready to go tomorrow. - Constitutional Vitals: Temp Pulse Resp BP Pulse Ox 98.0 F 104 20 179/75 94 01/27/18 15:38 01/27/18 15:38 01/27/18 15:38 01/27/18 15:38 01/27/18 15:38 General appearance: Present: cooperative, pleasant, no acute distress, answers questions appropriately - Head Head exam: Present: atraumatic, normal inspection, normocephalic - Eye Eye exam: Present: normal appearance, conjuntiva pink, sclera anicteric - Neck Neck exam general surgery: Present: supple, trachea midline. Absent: lymphadenopathy - Respiratory Respiratory exam: Present: CTAB. Absent: accessory muscle use, chest wall tenderness, rales, respiratory distress, rhonchi, wheezes - Cardiovascular Cardiovascular exam: Present: RRR, +S1, +S2. Absent: diastolic murmur, gallop, rubs, systolic murmur - GI/Abdominal GI/Abdominal exam: Present: normal bowel sounds, soft. Absent: distended, hepatomegaly, tenderness - Extremities Exam Extremities exam: Present: normal capillary refill, normal inspection, warm, radial pulses palpable and symmetrical. Absent: calf tenderness, cyanotic, pedal edema, tenderness - Neurological Exam Neurological exam: Present: alert, oriented X3, no focal deficits. Absent: facial droop, speech deficit - Skin Skin exam: Present: dry, intact, normal color, warm. Absent: rash Internal Medicine: Result - Labs CBC & Chem 7: 01/25/18 05:49 01/27/18 05:38 Labs: BMP 01/27/18 05:38 Sodium 138 Potassium 3.5 Chloride 103 Carbon Dioxide 29 BUN 14 Creatinine 0.68 L Glucose 157 H Calcium 8.9 Consult Discharge Plan - Plan Referrals: Jude Hernandez DO [Resident] - 03/05/18 2:00 pm NONE,PCP [Primary Care Provider] -
[2018-01-28] MEDS: *HR* LORazepam 2 MG/ML VIAL IVP PRN ×3 (02:53→19:44)
[2018-01-28] MEDS: hydrALAZINE 10 MG TABLET PO SCH ×4 (06:17→23:14)
[2018-01-28 07:00] LABS: BUN/Creatinine Ratio 24 (6-26); Blood Urea Nitrogen 16 mg/dL (6-20); Calcium 8.9 mg/dL (8.6-10.3); Carbon Dioxide 28 mEq/L (23-29); Chloride 104 mEq/L (98-107); Glucose 185 mg/dL (70-105); Osmolality,Calculated 292 (280-300); Potassium 3.6 mEq/L (3.5-5.1); Sodium 138 mEq/L (136-145); eGFR For African Americans > 60 (> 60); eGFR For Non-African Americans > 60 (> 60)
[2018-01-28] MEDS: Insulin LISPRO 300 UNITS/3 ML VIAL SQ SCH ×3 (07:42→18:42)
[2018-01-28] MEDS: PHENobarbital 32.4 MG TABLET PO SCH ×2 (09:02→19:44)
[2018-01-28] MEDS: Aspirin Enteric Coated 81 MG Tablet PO SCH (09:02)
[2018-01-28] MEDS: amLODIPine 5 MG TABLET PO SCH (09:02)
[2018-01-28] MEDS: hydroCHLOROthiazide 25 MG TABLET PO SCH (09:02)
[2018-01-28] MEDS: Gabapentin 300 MG CAPSULE PO SCH ×4 (09:02→19:44)
[2018-01-28] MEDS: Folic Acid 1 MG TABLET PO SCH (09:02)
[2018-01-28] MEDS: Lisinopril 20 MG TABLET PO SCH (09:02)
[2018-01-28] MEDS: Thiamine (B-1) 100 MG TABLET PO SCH (09:02)
[2018-01-28] MEDS: cloNIDine HCl 0.1 MG TABLET PO PRN (12:43)
--- NOTE | 2018-01-28 18:57 | Internal Med Progress Note ---
Date of Encounter: 01/28/18 Time of Encounter: 13:10 - Assessment and plan (1) Morbid obesity with BMI of 50.0-59.9, adult Current Visit: Yes Status: Chronic Assessment and plan: Chronic. Continue to encourage lifestyle modifications. (2) CHF exacerbation Current Visit: Yes Status: Resolved Assessment and plan: Resolved. Euvolemic. Patient with minimal bilateral lower extremity edema. Lungs are clear and diminished. Continue to monitor labs and vitals. Qualifiers: Heart failure type: diastolic Qualified Code(s): I50.33 - Acute on chronic diastolic (congestive) heart failure (3) Alcohol withdrawal Current Visit: Yes Status: Acute Assessment and plan: Patient handling withdrawal symptoms well. Last drink was 6 days ago. Ativan has been decreased to 1 mg every 6 hours when necessary, CIWA protocol has been stopped. Seizure precautions remain in place. Continue to monitor patient closely. Hydralazine and clonidine when necessary for blood pressure. Qualifiers: Complication of substance-induced condition: uncomplicated Qualified Code(s ): F10.230 - Alcohol dependence with withdrawal, uncomplicated (4) Diabetes mellitus Current Visit: Yes Status: Chronic Assessment and plan: Diabetes uncontrolled. Continue sliding scale insulin, diabetic diet, Accu-Cheks before meals and at bedtime. Qualifiers: Diabetes mellitus type: type 2 Diabetes mellitus assisted insulin use: without assisted use Diabetes mellitus complication status: without complication Qualified Code(s): E11.9 - Type 2 diabetes mellitus without complications (5) Hypertension Current Visit: Yes Status: Chronic Assessment and plan: Patient remains hypertensive. Patient has clonidine 0.1 mg by mouth 3 times a day prn SBP > 160mHg, as well as hydralazine 10 mg every 6 hours by mouth Home dose of lisinopril 40 mg has been continued. HCTZ has been increased to 25 mg daily. Continue to monitor VS Continue telemetry Qualifiers: Hypertension type: essential hypertension Qualified Code(s): I10 - Essential (primary) hypertension (6) DVT prophylaxis Current Visit: Yes Status: Acute Assessment and plan: SCDs are ordered. Pt has been ambulatory, continue to encourage ambulation. (7) Hypokalemia Current Visit: Yes Status: Acute Assessment and plan: Resolved. Continue to monitor, pt is on HCTZ. (8) Elevated troponin Current Visit: Yes Status: Acute - Time Spent With Patient Total time spent is greater than 50% in coordination of care (as documented) at patient's floor/unit and/or counseling patient: less than 15 minutes - Subjective Interval history: Patient was seen and assessed at bedside at 13:10 AM. Patient is alert, awake answers questions appropriately. Patient denies pain. He has been ambulating in the departments without difficulty. We are waiting on [facility] for discharge. - Constitutional Vitals: Temp Pulse Resp BP Pulse Ox 98.2 F 85 16 179/69 94 01/28/18 15:44 01/28/18 15:44 01/28/18 15:44 01/28/18 15:44 01/28/18 15:44 General appearance: Present: cooperative, morbidly obese, pleasant, no acute distress, answers questions appropriately - Head Head exam: Present: atraumatic, normal inspection, normocephalic - Eye Eye exam: Present: normal appearance, conjuntiva pink, sclera anicteric - Neck Neck exam general surgery: Present: supple, trachea midline. Absent: lymphadenopathy, tenderness - Respiratory Respiratory exam: Present: CTAB. Absent: accessory muscle use, rales, rhonchi, wheezes - Cardiovascular Cardiovascular exam: Present: RRR, +S1, +S2. Absent: diastolic murmur, gallop, rubs, systolic murmur - GI/Abdominal GI/Abdominal exam: Present: normal bowel sounds, soft. Absent: distended, tenderness - Extremities Exam Extremities exam: Present: normal capillary refill, normal inspection, warm, radial pulses palpable and symmetrical. Absent: calf tenderness, cyanotic, pedal edema, tenderness - Neurological Exam Neurological exam: Present: alert, oriented X3, no focal deficits. Absent: facial droop, speech deficit - Skin Skin exam: Present: dry, intact, normal color, warm. Absent: rash Internal Medicine: Result - Labs CBC & Chem 7: 01/25/18 05:49 01/28/18 05:58 Labs: BMP 01/28/18 05:58 Sodium 138 Potassium 3.6 Chloride 104 Carbon Dioxide 28 BUN 16 Creatinine 0.67 L Glucose 185 H Calcium 8.9 Consult Discharge Plan - Plan Referrals: Jude Hernandez DO [Resident] - 03/05/18 2:00 pm NONE,PCP [Primary Care Provider] -
[2018-01-29] MEDS: *HR* LORazepam 2 MG/ML VIAL IVP PRN ×3 (04:59→21:09)
[2018-01-29] MEDS: hydrALAZINE 10 MG TABLET PO SCH ×3 (04:59→17:38)
[2018-01-29] MEDS: Acetaminophen 325 MG TABLET PO PRN (05:09)
[2018-01-29] MEDS: Thiamine (B-1) 100 MG TABLET PO SCH (07:59)
[2018-01-29] MEDS: Insulin LISPRO 300 UNITS/3 ML VIAL SQ SCH ×3 (07:59→17:38)
[2018-01-29] MEDS: amLODIPine 5 MG TABLET PO SCH (07:59)
[2018-01-29] MEDS: Lisinopril 20 MG TABLET PO SCH (07:59)
[2018-01-29] MEDS: Aspirin Enteric Coated 81 MG Tablet PO SCH (07:59)
[2018-01-29] MEDS: Gabapentin 300 MG CAPSULE PO SCH ×4 (07:59→21:12)
[2018-01-29] MEDS: hydroCHLOROthiazide 25 MG TABLET PO SCH (07:59)
[2018-01-29] MEDS: Folic Acid 1 MG TABLET PO SCH (07:59)
--- NOTE | 2018-01-29 11:07 | Internal Med Progress Note ---
Date of Encounter: 01/29/18 Time of Encounter: 10:10 - Assessment and plan (1) Morbid obesity with BMI of 50.0-59.9, adult Current Visit: Yes Status: Chronic Assessment and plan: Chronic. encourage lifestyle modifications. (2) CHF exacerbation Current Visit: Yes Status: Resolved Assessment and plan: Resolved. Euvolemic. Patient with minimal bilateral lower extremity edema. Lungs are clear and diminished. Pt is able to ambulate around unit without dyspnea, pt also denies orthopnea. Continue to monitor labs and vitals. Qualifiers: Heart failure type: diastolic Qualified Code(s): I50.33 - Acute on chronic diastolic (congestive) heart failure (3) Alcohol withdrawal Current Visit: Yes Status: Acute Assessment and plan: Ativan has been stopped, CIWA protocol has been stopped. Seizure precautions remain in place. Continue to monitor patient closely. Hydralazine and clonidine when necessary for blood pressure. Qualifiers: Complication of substance-induced condition: uncomplicated Qualified Code(s ): F10.230 - Alcohol dependence with withdrawal, uncomplicated (4) Diabetes mellitus Current Visit: Yes Status: Chronic Assessment and plan: Continue sliding scale insulin, diabetic diet, Accu-Cheks before meals and at bedtime. Qualifiers: Diabetes mellitus type: type 2 Diabetes mellitus long-term insulin use: without terminal make up operator use Diabetes mellitus complication status: without complication Qualified Code(s): E11.9 - Type 2 diabetes mellitus without complications (5) Hypertension Current Visit: Yes Status: Chronic Assessment and plan: Patient remains hypertensive. Patient has clonidine 0.1 mg by mouth 3 times a day prn SBP > 160mHg, as well as hydralazine 10 mg every 6 hours by mouth Home dose of lisinopril 40 mg has been continued. HCTZ has been increased to 25 mg daily. Clonidine 0.1mg po BID added. Continue to monitor VS Qualifiers: Hypertension type: essential hypertension Qualified Code(s): I10 - Essential (primary) hypertension (6) DVT prophylaxis Current Visit: Yes Status: Acute Assessment and plan: SCDs are ordered. Pt has been ambulatory all around the unit., continue to encourage ambulation. (7) Hypokalemia Current Visit: Yes Status: Acute Assessment and plan: Resolved. (8) Elevated troponin Current Visit: Yes Status: Acute - Time Spent With Patient Total time spent is greater than 50% in coordination of care (as documented) at patient's floor/unit and/or counseling patient: less than 15 minutes - Subjective Interval history: Patient was seen and assessed at bedside at 1010 PM. Patient is alert, awake answers questions appropriately, pleasant, and joking with staff. Patient denies pain. He has been ambulating in the departments without difficulty. Pt states that he is bored and is thinking of signing out AMA. We have encouraged him to stay for placement and are attempting to find clothing for him. We are still waiting on [facility] for discharge, SW states that she has already called to check for status today. - Constitutional Vitals: Temp Pulse Resp BP Pulse Ox 98.0 F 81 16 150/71 96 01/29/18 06:53 01/29/18 06:53 01/29/18 06:53 01/29/18 06:53 01/29/18 06:53 General appearance: Present: cooperative, A&O X 3, morbidly obese, pleasant, no acute distress, answers questions appropriately - Head Head exam: Present: atraumatic, normal inspection, normocephalic - Eye Eye exam: Present: normal appearance, conjuntiva pink, sclera anicteric - Neck Neck exam general surgery: Present: supple, trachea midline. Absent: lymphadenopathy, tenderness - Respiratory Respiratory exam: Present: CTAB. Absent: accessory muscle use, chest wall tenderness, rales, respiratory distress, rhonchi, wheezes - Cardiovascular Cardiovascular exam: Present: RRR, +S1, +S2. Absent: diastolic murmur, gallop, rubs, systolic murmur - GI/Abdominal GI/Abdominal exam: Present: normal bowel sounds, soft. Absent: distended, tenderness - Extremities Exam Extremities exam: Present: normal capillary refill, normal inspection, warm, radial pulses palpable and symmetrical. Absent: calf tenderness, cyanotic, pedal edema, tenderness - Neurological Exam Neurological exam: Present: alert, oriented X3, no focal deficits. Absent: altered, facial droop, speech deficit - Skin Skin exam: Present: dry, intact, normal color, warm. Absent: rash Internal Medicine: Result - Labs CBC & Chem 7: 01/25/18 05:49 01/28/18 05:58 Consult Discharge Plan - Plan Referrals: Jude Hernandez DO [Resident] - 03/05/18 2:00 pm NONE,PCP [Primary Care Provider] -
[2018-01-29] MEDS: Nicotine 14 MG PATCH.TD24 TD PRN (12:54)
--- NOTE | 2018-01-29 19:34 | Event Note ---
Date of Encounter: 01/29/18 Time of Encounter: 12:00 Time is approximate. She had been walking around the unit. He arrested multiple times to leave the unit to go outside 2 times a day for 10-15 minutes. I explained him multiple times without was not a possibility. He seemed to be okay without. He reports that staff and let him go outside yesterday did not know why he could not go again today. I was called to patient's room at about noon and informed by the primary nurse that she had caught him in the bathroom attempting to snort a white, powder substance from the back of the toilet in his bathroom. When I ask him what it was, he states it was [place]. He states that he had gotten it from another patient had been discharged and returned to give it to him. Police were called, patient expressed remorse and was worried about being arrested. Patient reports, "I fucked up." and requests from that he be placed for rehab as planned.
[2018-01-29] MEDS: cloNIDine HCl 0.1 MG TABLET PO SCH (21:12)
[2018-01-30] MEDS: hydrALAZINE 10 MG TABLET PO SCH ×5 (00:22→23:53)
[2018-01-30] MEDS: *HR* LORazepam 2 MG/ML VIAL IVP PRN (05:42)
[2018-01-30] MEDS: Insulin LISPRO 300 UNITS/3 ML VIAL SQ SCH ×3 (05:44→16:45)
[2018-01-30] MEDS: Aspirin Enteric Coated 81 MG Tablet PO SCH (10:08)
[2018-01-30] MEDS: Lisinopril 20 MG TABLET PO SCH (10:08)
[2018-01-30] MEDS: Folic Acid 1 MG TABLET PO SCH (10:09)
[2018-01-30] MEDS: cloNIDine HCl 0.1 MG TABLET PO SCH ×2 (10:09→20:02)
[2018-01-30] MEDS: Gabapentin 300 MG CAPSULE PO SCH ×4 (10:09→20:02)
[2018-01-30] MEDS: hydroCHLOROthiazide 25 MG TABLET PO SCH (10:09)
[2018-01-30] MEDS: Thiamine (B-1) 100 MG TABLET PO SCH (10:09)
[2018-01-30] MEDS: amLODIPine 5 MG TABLET PO SCH (10:09)
[2018-01-30] MEDS: Acetaminophen 325 MG TABLET PO PRN (13:19)
--- NOTE | 2018-01-30 17:19 | Discharge Summary ---
- NOTES TO OUTPATIENT PROVIDER Notes to Outpatient Provider: Pt has been treated for alcohol withdrawl and admitted to an inpatient facility. Orders not resulted at time of discharge: Pending orders 01/26/18 09:29 CL Cardiac Catheterization [CL] Routine Date of Encounter: 01/30/18 Time of Encounter: 10:05 - Discharge Diagnosis (1) Morbid obesity with BMI of 50.0-59.9, adult Priority: Secondary Status: Chronic Assessment and Plan: Chronic. Discussed lifestyle changes including diet and exercise modifications. (2) CHF exacerbation Priority: Secondary Status: Resolved Assessment and Plan: Resolved. Lower extremity edema has improved. Lungs are clear and diminished. Pt is able to ambulate around unit without dyspnea, pt also denies orthopnea. He is not requiring supplemental 02 Continue diuretic after discharge. Qualifiers: Heart failure type: diastolic Qualified Code(s): I50.33 - Acute on chronic diastolic (congestive) heart failure (3) Alcohol withdrawal Priority: Secondary Status: Acute Assessment and Plan: Pt is not experiencing withdrawl symptoms. Ativan has been discontinued and pt is tolerating well. Qualifiers: Complication of substance-induced condition: uncomplicated Qualified Code(s ): F10.230 - Alcohol dependence with withdrawal, uncomplicated (4) Diabetes mellitus Priority: Secondary Status: Chronic Assessment and Plan: Continue accucheck regimen at rehab facility. Restart Glucophage. Qualifiers: Diabetes mellitus type: type 2 Diabetes mellitus intermediate insulin use: without terminal clerk use Diabetes mellitus complication status: without complication Qualified Code(s): E11.9 - Type 2 diabetes mellitus without complications (5) Hypertension Priority: Secondary Status: Chronic Assessment and Plan: Blood pressure at goal today. Home dose of lisinopril 40 mg has been continued. HCTZ has been increased to 25 mg daily. Clonidine 0.1mg po BID added. Qualifiers: Hypertension type: essential hypertension Qualified Code(s): I10 - Essential (primary) hypertension (6) DVT prophylaxis Priority: Secondary Status: Acute Assessment and Plan: SCDs are ordered. Pt has been ambulatory. (7) Hypokalemia Priority: Secondary Status: Resolved (8) Elevated troponin Priority: Secondary Status: Acute Assessment and Plan: Resolved. Hospital course: Mr. Adams is a 47 year old male with past medical history of diabetes, drug- seeking behavior, depression, suicidal ideation, adjustment disorder, polysubstance abuse, hypertension, type 2 diabetes, obesity, tobacco abuse, schizophrenia, PTSD, pulmonary nodules, CHF, hypertension. He was admitted to the emergency department with shortness of breath, leg swelling and alcohol withdrawal. Patient with CHF, given IV Lasix, electrolytes replaced, CIWA protocol in place. Patient improved, peripheral edema resolved, and patient was ambulatory around the unit without any difficulty or dyspnea. Eventually, CIWA protocol was stopped. Patient is no longer experiencing alcohol withdrawal and is no longer requiring any Ativan. Patient is waiting for approval to do to inpatient drug rehabilitation facility. Patient has been hypertensive throughout stay. Home dose of HCTZ was increased , and clonidine was added to medication regimen. Blood pressure is at goal today. Mr. Adams has been given an appointment with the resident clinic to establish with a PCP. Labs are stable and within normal limits. Patient is stable and appropriate for discharge once we are given approval for discharge. Discharge discussed with: patient, nurse - Time Spent with Patient Total time spent providing and/or coordinating discharge services: Less than 30 minutes - Discharge Medications Home Medications: Amlodipine Besylate 10 mg PO DAILY #30 tablet 01/15/18 [Rx] Gabapentin [Neurontin] 600 mg PO QID 01/15/18 [History] Lisinopril [Zestril] 40 mg PO DAILY #30 tablet 01/15/18 [Rx] metFORMIN [Glucophage] 500 mg PO BIDWM #60 tablet 01/15/18 [Rx] Acetaminophen [Tylenol] 650 mg PO Q6HR PRN tablet 01/30/18 [Rx] Aspirin Enteric Coated [Aspirin EC] 81 mg PO DAILY tablet. 01/30/18 [Rx] Atorvastatin [Lipitor] 20 mg PO HS tablet 01/30/18 [Rx] Folic Acid 1 mg PO DAILY tablet 01/30/18 [Rx] Nicotine Patch [Nicoderm] 14 mg TD DAILY PRN patch.td24 01/30/18 [Rx] Thiamine (B-1) [Vitamin B-1] 100 mg PO DAILY tablet 01/30/18 [Rx] cloNIDine HCl [CloNIDine HCl] 0.1 mg PO BID tablet 01/30/18 [Rx] hydroCHLOROthiazide [Hydrochlorothiazide] 25 mg PO DAILY tablet 01/30/18 [Rx] Allergies/Adverse Reactions: 3 Allergy/AdvReac Type Severity Reaction Status Date / Time Amoxicillin Allergy Hives Verified 01/24/18 10:00 Penicillins Allergy Hives Verified 01/24/18 10:00 quetiapine [From Seroquel] Allergy Hives Verified 01/24/18 10:00 chlordiazepoxide AdvReac Gastrointestinal Verified 01/24/18 10:00 [From Librium] Upset Date of admission: 01/25/18 18:18 Primary care physician: PCP NONE Discharging clinician: Lucinda Larose Anticipated date of discharge: 01/30/18 - Constitutional Vitals: Temp Pulse Resp BP Pulse Ox 98.2 F 87 17 144/77 96 01/30/18 15:16 01/30/18 15:16 01/30/18 15:16 01/30/18 15:16 01/30/18 15:16 General appearance: Present: cooperative, A&O X 3, morbidly obese, pleasant, no acute distress, answers questions appropriately - Head Head exam: Present: atraumatic, normal inspection, normocephalic - Eye Eye exam: Present: normal appearance, conjuntiva pink, sclera anicteric - Neck Neck exam general surgery: Present: supple, trachea midline. Absent: lymphadenopathy - Respiratory Respiratory exam: Present: CTAB. Absent: accessory muscle use, rales, rhonchi, wheezes - Cardiovascular Cardiovascular exam: Present: RRR, +S1, +S2. Absent: diastolic murmur, gallop, rubs, systolic murmur - GI/Abdominal GI/Abdominal exam: Present: normal bowel sounds, soft. Absent: distended, hepatomegaly, tenderness Additional comments: obese abdomen. - Extremities Exam Extremities exam: Present: warm, radial pulses palpable and symmetrical. Absent : calf tenderness, cyanotic, pedal edema - Neurological Exam Neurological exam: Present: alert, oriented X3, no focal deficits. Absent: altered, facial droop, speech deficit - Skin Skin exam: Present: dry, intact, warm. Absent: rash - Patient Status Disposition: Transfer Inpatient Rehab Fac Condition: Good Functional capacity at discharge: independent ambulation Overall status at discharge: patient is back to baseline - Discharge Instructions Follow Up With: Jude Hernandez DO [Resident] - 03/05/18 2:00 pm NONE,PCP [Primary Care Provider] - - Diet and Activity Activity: increase activity as tolerated Diet: diabetic diet, low fat, low cholesterol
[2018-01-31] MEDS: hydrALAZINE 10 MG TABLET PO SCH ×4 (05:21→21:22)
[2018-01-31 08:12] LABS: Basophils # 0.1 K/mcL (0.0-0.2); Basophils % 0.8 %; Eosinophils # 0.2 K/mcL (0.0-0.6); Eosinophils % 2.3 %; Hematocrit 48.1 % (37.5-50.1); Immature Granulocytes % 0.5 % (0-4); Lymphocytes # 2.3 K/mcL (0.6-4.6); Lymphocytes % 26.2 %; Mean Corpuscular HGB Conc 32.8 g/dL (31.6-35.5); Mean Corpuscular Hemoglobin 29.6 pg (28.0-33.3); Mean Corpuscular Volume 90.1 fL (83.0-100.0); Mean Platelet Volume 9.8 fL (9.4-12.4); Monocytes # 0.6 K/mcL (0.0-1.3); Monocytes % 7.2 %; Neutrophils # 5.5 K/mcL (1.6-8.9); Platelet Count 202 K/mcL (140-400); Red Blood Count 5.34 M/mcL (4.19-5.50); Red Cell Distribution Width 13.7 % (11.5-14.5)
[2018-01-31 08:23] LABS: Hemoglobin 15.8 g/dL (12.9-16.9)
[2018-01-31] MEDS: Insulin LISPRO 300 UNITS/3 ML VIAL SQ SCH ×3 (08:46→17:36)
[2018-01-31] MEDS: hydroCHLOROthiazide 25 MG TABLET PO SCH (08:55)
[2018-01-31] MEDS: Thiamine (B-1) 100 MG TABLET PO SCH (08:55)
[2018-01-31] MEDS: amLODIPine 5 MG TABLET PO SCH (08:56)
[2018-01-31] MEDS: Gabapentin 300 MG CAPSULE PO SCH ×4 (08:56→21:20)
[2018-01-31] MEDS: cloNIDine HCl 0.1 MG TABLET PO SCH ×2 (08:56→21:21)
[2018-01-31] MEDS: Lisinopril 20 MG TABLET PO SCH (08:56)
[2018-01-31] MEDS: Folic Acid 1 MG TABLET PO SCH (08:56)
[2018-01-31] MEDS: Aspirin Enteric Coated 81 MG Tablet PO SCH (08:56)
[2018-01-31] MEDS: Nicotine 14 MG PATCH.TD24 TD PRN (09:00)
--- NOTE | 2018-01-31 09:15 | Internal Med Progress Note ---
Date of Encounter: 01/31/18 Time of Encounter: 08:05 - Assessment and plan (1) Morbid obesity with BMI of 50.0-59.9, adult Current Visit: Yes Status: Chronic Assessment and plan: Chronic. Continue to discuss and encourage diet and exercise changes. (2) CHF exacerbation Current Visit: Yes Status: Resolved Assessment and plan: Resolved. Qualifiers: Heart failure type: diastolic Qualified Code(s): I50.33 - Acute on chronic diastolic (congestive) heart failure (3) Alcohol withdrawal Current Visit: Yes Status: Resolved Assessment and plan: Resolved. Ativan has been discontinued, no symptoms of withdrawl. Pt to be discharged to rehab facility Qualifiers: Complication of substance-induced condition: uncomplicated Qualified Code(s ): F10.230 - Alcohol dependence with withdrawal, uncomplicated (4) Diabetes mellitus Current Visit: Yes Status: Chronic Assessment and plan: Continue accucheck regimen at rehab facility. Restart Glucophage. Encourage weight loss and diabetic diet. 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 Continue after discharge. Qualifiers: Hypertension type: essential hypertension Qualified Code(s): I10 - Essential (primary) hypertension (6) DVT prophylaxis Current Visit: Yes Status: Acute Assessment and plan: Pt is ambulatory. (7) Hypokalemia Current Visit: Yes Status: Resolved (8) Elevated troponin Current Visit: Yes Status: Acute - Time Spent With Patient Total time spent is greater than 50% in coordination of care (as documented) at patient's floor/unit and/or counseling patient: less than 15 minutes - Subjective Interval history: Patient was seen and assessed at bedside at 080 5 AM. Patient is alert, awake answers questions appropriately, pleasant. Patient is at the desk requesting that nursing staff can contact with rehabilitation where he is going to see if he is ready to go. Apparently, rehabilitation facility has requested repeat labs which have been drawn and are pending. Patient denies pain. He has been ambulating in the departments without difficulty. Patient states that he is anxious to go and get started on rehabilitation. He denies any chest pain headache, nausea, vomiting, vision changes, shortness of breath, or chest pain. - Constitutional Vitals: Temp Pulse Resp BP Pulse Ox 98.4 F 84 16 149/105 95 01/31/18 08:03 01/31/18 08:03 01/31/18 08:03 01/31/18 08:03 01/31/18 08:03 General appearance: Present: cooperative, A&O X 3, morbidly obese, pleasant, no acute distress, answers questions appropriately - Head Head exam: Present: atraumatic, normal inspection, normocephalic - Eye Eye exam: Present: normal appearance, conjuntiva pink, sclera anicteric - Neck Neck exam general surgery: Present: normal inspection, supple, trachea midline. Absent: lymphadenopathy, tenderness - Respiratory Respiratory exam: Present: decreased breath sounds, CTAB. Absent: accessory muscle use, rales, respiratory distress, rhonchi, wheezes - Cardiovascular Cardiovascular exam: Present: RRR, +S1, +S2. Absent: diastolic murmur, gallop, rubs, systolic murmur - GI/Abdominal GI/Abdominal exam: Present: hepatomegaly, normal bowel sounds, soft. Absent: distended, tenderness Additional comments: abdomen obese - Extremities Exam Extremities exam: Present: warm, radial pulses palpable and symmetrical. Absent : calf tenderness, cyanotic, pedal edema - Neurological Exam Neurological exam: Present: alert, oriented X3, no focal deficits. Absent: facial droop, speech deficit - Skin Skin exam: Present: dry, intact, normal color, warm. Absent: rash Internal Medicine: Result - Labs CBC & Chem 7: 01/31/18 08:01 01/28/18 05:58 Labs: Short CBC 01/31/18 Range/Units 08:01 WBC 8.7 (4.3-11.1) K/mcL Hgb 15.8 D (12.9-16.9) g/dL Hct 48.1 (37.5-50.1) % Plt Count 202 (140-400) K/mcL Neutrophils # 5.5 (1.6-8.9) K/mcL Consult Discharge Plan - Plan Referrals: Jude Hernandez DO [Resident] - 03/05/18 2:00 pm NONE,PCP [Primary Care Provider] -
[2018-01-31 09:50] LABS: BUN/Creatinine Ratio 17 (6-26); Blood Urea Nitrogen 14 mg/dL (6-20); Calcium 9.2 mg/dL (8.6-10.3); Carbon Dioxide 28 mEq/L (23-29); Chloride 103 mEq/L (98-107); Glucose 150 mg/dL (70-105); Osmolality,Calculated 289 (280-300); Potassium 4.2 mEq/L (3.5-5.1); Sodium 138 mEq/L (136-145); eGFR For African Americans > 60 (> 60); eGFR For Non-African Americans > 60 (> 60)
[2018-01-31] MEDS: Acetaminophen 325 MG TABLET PO PRN (21:21)
[2018-02-01] MEDS: hydrALAZINE 10 MG TABLET PO SCH (06:41)
[2018-02-01 07:13] VITALS: BP 132/73
[2018-02-01] MEDS: amLODIPine 5 MG TABLET PO SCH (08:40)
[2018-02-01] MEDS: Lisinopril 20 MG TABLET PO SCH (08:41)
[2018-02-01] MEDS: Gabapentin 300 MG CAPSULE PO SCH (08:41)
[2018-02-01] MEDS: cloNIDine HCl 0.1 MG TABLET PO SCH (08:41)
[2018-02-01] MEDS: hydroCHLOROthiazide 25 MG TABLET PO SCH (08:41)
[2018-02-01] MEDS: Folic Acid 1 MG TABLET PO SCH (08:41)
[2018-02-01] MEDS: Aspirin Enteric Coated 81 MG Tablet PO SCH (08:41)
[2018-02-01] MEDS: Thiamine (B-1) 100 MG TABLET PO SCH (08:41)
[2018-02-01] MEDS: Insulin LISPRO 300 UNITS/3 ML VIAL SQ SCH (08:43)
[2018-02-01] MEDS: Nicotine 14 MG PATCH.TD24 TD PRN (08:48)
--- NOTE | 2018-02-01 10:39 | Internal Med Progress Note ---
Date of Encounter: 02/01/18 Time of Encounter: 08:55 - Assessment and plan (1) Morbid obesity with BMI of 50.0-59.9, adult Current Visit: Yes Status: Chronic Assessment and plan: Chronic. We discussed lifestyle modifications again today including diet and exercise. Patient verbalized understanding. (2) CHF exacerbation Current Visit: Yes Status: Resolved Assessment and plan: Resolved. Qualifiers: Heart failure type: diastolic Qualified Code(s): I50.33 - Acute on chronic diastolic (congestive) heart failure (3) Alcohol withdrawal Current Visit: Yes Status: Resolved Assessment and plan: Resolved. Patient is unable to get into any inpatient rehabilitation at this time. She has been given list of outpatient resources by social services earlier in the week. He acknowledges having lists and the ability to make phone calls prior to discharge. Qualifiers: Complication of substance-induced condition: uncomplicated Qualified Code(s ): F10.230 - Alcohol dependence with withdrawal, uncomplicated (4) Diabetes mellitus Current Visit: Yes Status: Chronic Assessment and plan: Continue accucheck regimen at rehab facility. Restart Glucophage. Encourage weight loss and diabetic diet. 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 Continue after discharge. Qualifiers: Hypertension type: essential hypertension Qualified Code(s): I10 - Essential (primary) hypertension (6) DVT prophylaxis Current Visit: Yes Status: Acute Assessment and plan: Pt is ambulatory around the unit. (7) Hypokalemia Current Visit: Yes Status: Resolved Assessment and plan: Resolved (8) Elevated troponin Current Visit: Yes Status: Acute Assessment and plan: Resolved. - Time Spent With Patient Total time spent is greater than 50% in coordination of care (as documented) at patient's floor/unit and/or counseling patient: less than 15 minutes - Subjective Interval history: Patient was seen and assessed at bedside at 0855 AM. Patient is alert, awake answers questions appropriately, pleasant. Patient denies pain. He has been ambulating in the departments without difficulty. He denies any chest pain headache, nausea, vomiting, vision changes, shortness of breath, or chest pain. We were informed by the inpatient rehabilitation patient was going to go that he has no mental health days left and has used all of his lifetime days. Patient is aware, social services has worked on this from home. Patient was given a list of home a shelters and resources by social services a few days ago, he is going to attempt to try to call various shelters, friends, family to see if there is a place he can stay. I have told him that he is discharged, he does not need to leave the room immediately as he will be able to shower and get lunch prior to leaving. - Constitutional Vitals: Temp Pulse Resp BP Pulse Ox 97.8 F 71 16 132/73 97 02/01/18 07:12 02/01/18 07:12 02/01/18 07:12 02/01/18 07:12 02/01/18 07:12 General appearance: Present: cooperative, A&O X 3, morbidly obese, pleasant, no acute distress, answers questions appropriately - Head Head exam: Present: atraumatic, normal inspection, normocephalic - Eye Eye exam: Present: normal appearance, conjuntiva pink, sclera anicteric - Neck Neck exam general surgery: Present: supple, trachea midline. Absent: lymphadenopathy, tenderness - Respiratory Respiratory exam: Present: decreased breath sounds, CTAB. Absent: accessory muscle use, chest wall tenderness, rales, respiratory distress, rhonchi, wheezes - Cardiovascular Cardiovascular exam: Present: RRR, +S1, +S2. Absent: diastolic murmur, gallop, rubs, systolic murmur - GI/Abdominal GI/Abdominal exam: Present: normal bowel sounds, soft. Absent: distended, hepatomegaly, tenderness - Extremities Exam Extremities exam: Present: normal capillary refill, normal inspection, warm, radial pulses palpable and symmetrical. Absent: calf tenderness, cyanotic, pedal edema, tenderness - Neurological Exam Neurological exam: Present: alert, oriented X3, no focal deficits. Absent: altered, facial droop, speech deficit - Skin Skin exam: Present: dry, intact, normal color, warm. Absent: rash Internal Medicine: Result - Labs CBC & Chem 7: 01/31/18 08:01 01/31/18 08:01 Consult Discharge Plan - Plan Referrals: Jude Hernandez DO [Resident] - 03/05/18 2:00 pm NONE,PCP [Primary Care Provider] -
== END 2018-02-01 10:35 | DRG 896 ==
LOC: EMEROO 03:03 → 3BNU 03:03 → SUATTDRO 07:06 → 3BNU 08:06
PROVIDERS: ADMIT Internal Medicine; ATTEND Internal Medicine

== ENCOUNTER 2018-02-03 13:43 | Inpatient (IN) ==
[2018-02-03] MEDS ORDERED: MVI, adult with vitamin K 10 ML in 0.9 % Sodium Chloride 1,000 ML IVC ONE (14:21)
[2018-02-03] MEDS ORDERED: *HR* LORazepam 2 MG/ML VIAL IVP ONE ×3 (14:21→16:25)
[2018-02-03] MEDS ORDERED: 0.9 % Sodium Chloride 1,000 ML IVC ONE (14:21)
[2018-02-03] MEDS ORDERED: Ondansetron 4 MG/2 ML VIAL IVP ONE (14:24)
--- NOTE | 2018-02-03 14:54 | Emergency Department Note ---
Disposition Clinical Impression: Suicidal ideation Alcohol withdrawal Qualifiers: Complication of substance-induced condition: with unspecified complication Qualified Code(s): F10.239 - Alcohol dependence with withdrawal, unspecified Disposition: Admitted As Inpatient Condition: Good Referrals: NONE,PCP [Primary Care Provider] - Forms: ED Satisfaction Letter Time of Disposition: 14:56 General Adult HPI - General Chief complaint: ED Psychiatric Symptoms Stated complaint: SI Time Seen by Provider: 02/03/18 13:49 Source: patient Limitations: no limitations Nursing Notes Reviewed: Yes Vital Signs Reviewed: Yes - History of Present Illness HPI Narrative: 47 year old male presents to the ED with complaints of SI and ETOH detox withdrawl symptoms. He states that he drinks 12 pack/day plus liquor and that he tried to detoxon his own at home and the last time he had alcohol was lasst night and since then he has been experiencing tremors, nausea, and vomitting. Patient states that this is the first he has tried to detox and he is doing it for his family. PAtint states that the tremors are in his hands and he cant stop and appears midly diaphoretic. PAtinet states that he has had 2 episodes of vomititng with diarrhea and they are nonbloody and nobilious. Patinet states because of the detox his depression is worsening and now he is having increasd thoughts of suidcide. No plan. Pain Scale: 7 - Related Data Home Medications Medication Instructions Recorded Confirmed Gabapentin [Neurontin] 600 mg PO QID 01/15/18 02/03/18 Previous Rx's Medication Instructions Recorded Amlodipine Besylate 10 mg PO DAILY #30 tablet 01/15/18 Lisinopril [Zestril] 40 mg PO DAILY #30 tablet 01/15/18 metFORMIN [Glucophage] 500 mg PO BIDWM #60 tablet 01/15/18 Acetaminophen [Tylenol] 650 mg PO Q6HR PRN tablet 01/30/18 Aspirin Enteric Coated [Aspirin EC] 81 mg PO DAILY tablet. 01/30/18 Atorvastatin [Lipitor] 20 mg PO HS tablet 01/30/18 Folic Acid 1 mg PO DAILY tablet 01/30/18 Thiamine (B-1) [Vitamin B-1] 100 mg PO DAILY tablet 01/30/18 cloNIDine HCl [CloNIDine HCl] 0.1 mg PO BID tablet 01/30/18 hydroCHLOROthiazide 25 mg PO DAILY tablet 01/30/18 [Hydrochlorothiazide] Allergies Allergy/AdvReac Type Severity Reaction Status Date / Time Amoxicillin Allergy Hives Verified 02/03/18 13:51 Penicillins Allergy Hives Verified 02/03/18 13:51 quetiapine [From Seroquel] Allergy Hives Verified 02/03/18 13:51 chlordiazepoxide AdvReac Gastrointestinal Verified 02/03/18 13:51 [From Librium] Upset Constitutional: Reports: weakness. Denies: fever, chills, weight change Eyes: Denies: eye pain, eye discharge, vision change ENT ED: Denies: ear pain, throat pain, dental pain, hearing loss, epistaxis, congestion, dysphagia Cardiovascular: Reports: palpitations. Denies: chest pain, dyspnea on exertion , edema, syncope Respiratory: Denies: cough, dyspnea, wheezes, hemoptysis, stridor Gastrointestinal: Reports: nausea, vomiting. Denies: abdominal pain, diarrhea, constipation, hematemesis, melena, hematochezia Genitourinary: Denies: urgency, dysuria, frequency, hematuria Musculoskeletal: Denies: back pain, neck pain, arthralgia, myalgia Integumentary: Denies: rash, abrasion, lesions Neurological: Reports: other (tremors). Denies: headache, weakness, numbness, paresthesias, confusion, abnormal gait, vertigo Psychiatric: Reports: depression, suicidal thoughts. Denies: anxiety, homicidal thoughts, auditory hallucinations, visual hallucinations Endocrine: Denies: fatigue Hematological/Lymphatic: Denies: easy bleeding, easy bruising Allergic/Immunologic: Denies: facial swelling, urticaria Past Medical History - Past Medical History Medical history: Reports: diabetes, hypertension Surgical history: Reports: no surgical history Psychiatric history: Reports: anxiety, depression - Social History Smoking Status: Current every day smoker Smokeless Tobacco Status: No Alcohol use: Reports: heavy, recent Drug use: Reports: opiates, marijuana, prescription drug abuse Physical Exam - General Limitations: no limitations General appearance: alert, in no apparent distress, other (diaphoretic) - Head Head exam: atraumatic, normocephalic, normal inspection - Eye Eye exam: Present: normal appearance, PERRL, EOMI - Expanded Eye Exam Pupils: Bilateral: reactive - ENT ENT exam: normal exam, normal oropharynx, mucous membranes moist - Expanded ENT Exam External ear exam: Present: normal external inspection Mouth exam: Present: normal external inspection Teeth exam: Present: normal inspection Throat exam: Present: normal inspection - Neck Neck exam: Present: normal inspection, full ROM, trachea midline - Chest Chest inspection: Present: normal inspection, symmetric chest wall rise - Respiratory Respiratory exam: Present: normal lung sounds bilaterally - Cardiovascular Cardiovascular exam: Present: normal rhythm, tachycardia, normal heart sounds - Abdominal Exam Abdominal exam: Present: soft, Non-Tender. Absent: tenderness, distention, guarding, rebound, rigidity - Extremities Exam Extremities exam: Present: normal inspection, full ROM. Absent: tenderness, pedal edema - Expanded Upper Extremity Exam Shoulder exam: Present: normal inspection, full ROM Arm exam: Present: normal inspection, full ROM Elbow exam: Present: normal inspection, full ROM Forearm/Wrist exam: Present: normal inspection, full ROM Hand exam: Present: normal inspection, full ROM Vascular exam: Normal: capillary refill, radial pulse - Expanded Lower Extremity Exam Hip/Pelvis exam: Present: normal inspection, full ROM Upper leg exam: Present: normal inspection, full ROM Knee exam: Present: normal inspection, full ROM Lower leg exam: Present: normal inspection, full ROM Ankle exam: Present: normal inspection, full ROM Foot/toe exam: Present: normal inspection, full ROM Neurovascular/Tendon exam: Absent: motor deficit, sensory deficit, tendon deficit - Back Exam Back exam: Present: normal inspection, full ROM. Absent: tenderness - Neurological Exam Neurological exam: Present: alert, oriented X3 - Expanded Neurological Exam Patient oriented to: Present: person, place, time Coma Scale Eye Opening: Spontaneous Coma Scale Motor Response: Obeys Commands Coma Scale Verbal Response: Oriented Coma Scale Total: 15 - Psychiatric Psychiatric exam: Present: normal affect, normal mood - Skin Skin exam: Present: warm, dry, intact, normal color Course Course Narrative: we will treat for his ETOH withdrawl and admit to medicine for medical clerance and then conuslt with 1A - Consultations Consultation #1: discussed case with Dr. Mirza and he accepts patelnet ot his service. Time: 16:03 Vital Signs Temperature 98.1 F 02/03/18 13:50 Pulse Rate 112 02/03/18 13:50 Respiratory Rate 18 02/03/18 13:50 Blood Pressure 197/91 02/03/18 13:50 O2 Sat by Pulse Oximetry 96 02/03/18 13:50 Temperature 98.1 F 02/03/18 14:35 Pulse Rate 94 02/03/18 15:26 Respiratory Rate 20 02/03/18 15:26 Blood Pressure 167/101 02/03/18 15:26 O2 Sat by Pulse Oximetry 94 02/03/18 15:26 Oxygen Delivery Oxygen Delivery Room Air Medical Decision Making - Lab Data Result diagrams: 02/03/18 14:59 02/03/18 14:59 Lab Results 02/03/18 02/03/18 02/03/18 Range/Units 14:59 14:59 14:59 WBC 9.2 (4.3-11.1) K/mcL RBC 4.79 (4.19-5.50) M/mcL Hgb 14.9 (12.9-16.9) g/dL Hct 42.9 (37.5-50.1) % MCV 89.6 (83.0-100.0) fL MCH 31.1 (28.0-33.3) pg MCHC 34.7 (31.6-35.5) g/dL RDW 13.7 (11.5-14.5) % Plt Count 224 (140-400) K/mcL MPV 10.2 (9.4-12.4) fL Immature Gran % 0.4 (0-4) % Seg Neutrophils % 72.2 % Lymphocytes % 17.8 % Monocytes % 7.8 % Eosinophils % 1.3 % Basophils % 0.5 % Neutrophils # 6.7 (1.6-8.9) K/mcL Lymphocytes # 1.6 (0.6-4.6) K/mcL Monocytes # 0.7 (0.0-1.3) K/mcL Eosinophils # 0.1 (0.0-0.6) K/mcL Basophils # 0.1 (0.0-0.2) K/mcL Sodium Cancelled 138 Potassium Cancelled 3.6 Chloride Cancelled 103 Carbon Dioxide Cancelled 26 BUN Cancelled 23 H Creatinine Cancelled 0.96 Est GFR ( Amer) Cancelled > 60 Est GFR (Non-Af Amer) Cancelled > 60 BUN/Creatinine Ratio Cancelled 24 Glucose Cancelled 148 H Calculated Osmolality Cancelled 292 Calcium Cancelled 9.7 Phosphorus 2.4 L (2.7-4.5) mg/dL Magnesium 2.0 (1.6-2.6) mg/dL Lipase 25 (11-82) Units/L Urine Color (Yellow) Urine Clarity (Clear) Urine pH (5.0-8.0) pH Units Ur Specific Bivalve (1.010-1.025) Urine Protein (Neg-Trace) mg/dL Urine Glucose (UA) (Normal) mg/dL Urine Ketones (Negative) mg/dL Urine Blood (Negative) Urine Nitrite (Negative) Urine Bilirubin (Negative) Urine Urobilinogen (Normal) mg/dL Ur Leukocyte Esterase (Negative) Urine Microscopic RBC (0-3) per hpf Urine Microscopic WBC (0-3) per hpf Ur Squamous Epith Cells (None-Few) per lpf Urine Bacteria (None-Few) per hpf Hyaline Casts (None-Few) per lpf Salicylates < 2.5 L (15.0-30.0) mg/dL Urine Opiates Screen (Vavscr=111) ng/mL Acetaminophen < 10 L (10-20) mcg/mL Ur Barbiturates Screen (Wvhxyn=146) ng/mL Ur Phencyclidine Scrn (Cutoff=25) ng/mL Ur Amphetamines Screen (Yxrwyg=6584) ng/mL U Benzodiazepines Scrn (Diznuu=528) ng/mL Urine Cocaine Screen (Cutoff= 300) ng/mL U Marijuana (THC) Screen (Cutoff = 50) ng/mL Ethyl Alcohol < 10 (Less than 10) mg/dL 02/03/18 02/03/18 Range/Units 15:35 15:35 WBC (4.3-11.1) K/mcL RBC (4.19-5.50) M/mcL Hgb (12.9-16.9) g/dL Hct (37.5-50.1) % MCV (83.0-100.0) fL MCH (28.0-33.3) pg MCHC (31.6-35.5) g/dL RDW (11.5-14.5) % Plt Count (140-400) K/mcL MPV (9.4-12.4) fL Immature Gran % (0-4) % Seg Neutrophils % % Lymphocytes % % Monocytes % % Eosinophils % % Basophils % % Neutrophils # (1.6-8.9) K/mcL Lymphocytes # (0.6-4.6) K/mcL Monocytes # (0.0-1.3) K/mcL Eosinophils # (0.0-0.6) K/mcL Basophils # (0.0-0.2) K/mcL Sodium Potassium Chloride Carbon Dioxide BUN Creatinine Est GFR ( Amer) Est GFR (Non-Af Amer) BUN/Creatinine Ratio Glucose Calculated Osmolality Calcium Phosphorus (2.7-4.5) mg/dL Magnesium (1.6-2.6) mg/dL Lipase (11-82) Units/L Urine Color Dark Yellow (Yellow) Urine Clarity Hazy (Clear) Urine pH 5.5 (5.0-8.0) pH Units Ur Specific Bivalve > 1.030 H (1.010-1.025) Urine Protein 30 H (Neg-Trace) mg/dL Urine Glucose (UA) Normal (Normal) mg/dL Urine Ketones Negative (Negative) mg/dL Urine Blood Negative (Negative) Urine Nitrite Negative (Negative) Urine Bilirubin Negative (Negative) Urine Urobilinogen Normal (Normal) mg/dL Ur Leukocyte Esterase Negative (Negative) Urine Microscopic RBC 0-3 (0-3) per hpf Urine Microscopic WBC 0-3 (0-3) per hpf Ur Squamous Epith Cells Moderate H (None-Few) per lpf Urine Bacteria None Seen (None-Few) per hpf Hyaline Casts None Seen (None-Few) per lpf Salicylates (15.0-30.0) mg/dL Urine Opiates Screen Positive H (Tejexi=666) ng/mL Acetaminophen (10-20) mcg/mL Ur Barbiturates Screen Positive H (Nyxwxr=843) ng/mL Ur Phencyclidine Scrn Negative (Cutoff=25) ng/mL Ur Amphetamines Screen Negative (Dvykqe=1024) ng/mL U Benzodiazepines Scrn Positive H (Xbmcgs=778) ng/mL Urine Cocaine Screen Negative (Cutoff= 300) ng/mL U Marijuana (THC) Screen Positive H (Cutoff = 50) ng/mL Ethyl Alcohol (Less than 10) mg/dL
[2018-02-03 15:09] LABS: Basophils # 0.1 K/mcL (0.0-0.2); Basophils % 0.5 %; Eosinophils # 0.1 K/mcL (0.0-0.6); Eosinophils % 1.3 %; Hematocrit 42.9 % (37.5-50.1); Hemoglobin 14.9 g/dL (12.9-16.9); Immature Granulocytes % 0.4 % (0-4); Lymphocytes # 1.6 K/mcL (0.6-4.6); Lymphocytes % 17.8 %; Mean Corpuscular HGB Conc 34.7 g/dL (31.6-35.5); Mean Corpuscular Hemoglobin 31.1 pg (28.0-33.3); Mean Corpuscular Volume 89.6 fL (83.0-100.0); Mean Platelet Volume 10.2 fL (9.4-12.4); Monocytes # 0.7 K/mcL (0.0-1.3); Monocytes % 7.8 %; Neutrophils # 6.7 K/mcL (1.6-8.9); Platelet Count 224 K/mcL (140-400); Red Blood Count 4.79 M/mcL (4.19-5.50); Red Cell Distribution Width 13.7 % (11.5-14.5); Segmented Neutrophils % 72.2 %
[2018-02-03 15:29] LABS: Lipase 25 Units/L (11-82); Phosphorous 2.4 mg/dL (2.7-4.5)
[2018-02-03 15:31] LABS: Acetaminophen < 10 mcg/mL (10-20)
[2018-02-03 15:36] LABS: Ethanol < 10 mg/dL (Less than 10); Salicylate < 2.5 mg/dL (15.0-30.0)
[2018-02-03 15:46] LABS: Bilirubin,Urine Negative (Negative); Blood,Urine Negative (Negative); Color,Urine Dark Yellow (Yellow); Glucose,Urine (UA) Normal (Normal); Ketones,Urine Negative (Negative); Leukocyte Esterase,Urine Negative (Negative); Nitrite,Urine Negative (Negative); PH,Urine 5.5 pH Units (5.0-8.0); Protein,Urine 30 mg/dL (Neg-Trace); Specific Gravity,Urine > 1.030 (1.010-1.025); Urobilinogen,Urine Normal (Normal)
[2018-02-03 15:53] LABS: BUN/Creatinine Ratio 24 (6-26); Blood Urea Nitrogen 23 mg/dL (6-20); Calcium 9.7 mg/dL (8.6-10.3); Carbon Dioxide 26 mEq/L (23-29); Chloride 103 mEq/L (98-107); Glucose 148 mg/dL (70-105); Osmolality,Calculated 292 (280-300); Potassium 3.6 mEq/L (3.5-5.1); Sodium 138 mEq/L (136-145); eGFR For African Americans > 60 (> 60); eGFR For Non-African Americans > 60 (> 60)
[2018-02-03 15:54] LABS: Amphetamine Screen,Urine Negative ng/mL (Cutoff=1000); Bacteria,Urine None Seen per hpf (None-Few); Barbiturate Screen,Urine Positive ng/mL (Cutoff=200); Benzodiazepines Screen,Urine Positive ng/mL (Cutoff=200); Cannabinoid Screen,Urine Positive ng/mL (Cutoff = 50); Cocaine Screen,Urine Negative ng/mL (Cutoff= 300); Hyaline Casts,Urine None Seen per lpf (None-Few); Opiate Screen,Urine Positive ng/mL (Cutoff=300); Phencyclidine Screen,Urine Negative ng/mL (Cutoff=25); RBC,Urine 0-3 per hpf (0-3); Squamous Epithelial Cell,Urine Moderate per lpf (None-Few); WBC,Urine 0-3 per hpf (0-3)
[2018-02-03 15:57] LABS: Clarity,Urine Hazy (Clear)
[2018-02-03] MEDS ORDERED: *HR* Promethazine 25 MG/ML VIAL IVP PRN (16:02)
[2018-02-03] MEDS ORDERED: *HR* HYDROcodone/Acet 5/325 mg TABLET PO PRN (16:02)
[2018-02-03] MEDS ORDERED: Ondansetron 4 MG/2 ML VIAL IVP PRN (16:02)
[2018-02-03] MEDS ORDERED: *HR* OxyCODONE Immed Rel 5 MG TABLET PO PRN (16:02)
[2018-02-03] MEDS ORDERED: Naloxone 0.4 MG/ML INJ IVP PRN (16:02)
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
[2018-02-03] MEDS ORDERED: *HR* Dextrose 50 % in Water (Syg) 50 ML SYRINGE IVP PRN (17:24)
[2018-02-03] MEDS ORDERED: D5% in Water 1,000 ML IVC PRN (17:24)
[2018-02-03] MEDS ORDERED: Dextrose Gel 15 GM/37.5 ML TUBE PO PRN ×2 (17:24)
[2018-02-03] MEDS: diazePAM 10 MG/2 ML SYRINGE IVP PRN (18:53)
[2018-02-03] MEDS: Thiamine (B-1) 100 MG TABLET PO SCH (19:02)
[2018-02-03] MEDS: 0.9 % Sodium Chloride 1,000 ML IVC SCH (19:03)
[2018-02-03] MEDS: cloNIDine HCl 0.1 MG TABLET PO SCH (21:47)
[2018-02-03] MEDS: Gabapentin 300 MG CAPSULE PO SCH (21:47)
[2018-02-03] MEDS: *HR* LORazepam 2 MG/ML VIAL IVP PRN ×2 (21:48→23:27)
[2018-02-03] MEDS: Insulin LISPRO 300 UNITS/3 ML VIAL SQ SCH (22:24)
[2018-02-04] MEDS: *HR* Enoxaparin 40 MG/0.4 ML SYRINGE SQ SCH ×2 (05:56→06:01)
[2018-02-04] MEDS: diazePAM 10 MG/2 ML SYRINGE IVP PRN ×2 (05:57→09:43)
[2018-02-04 06:53] LABS: Basophils # 0.1 K/mcL (0.0-0.2); Basophils % 0.8 %; Eosinophils # 0.2 K/mcL (0.0-0.6); Hematocrit 42.4 % (37.5-50.1); Hemoglobin 13.9 g/dL (12.9-16.9); Immature Granulocytes % 0.5 % (0-4); Lymphocytes # 1.5 K/mcL (0.6-4.6); Lymphocytes % 23.1 %; Mean Corpuscular HGB Conc 32.8 g/dL (31.6-35.5); Mean Corpuscular Volume 91.6 fL (83.0-100.0); Monocytes # 0.5 K/mcL (0.0-1.3); Monocytes % 7.7 %; Neutrophils # 4.3 K/mcL (1.6-8.9); Platelet Count 184 K/mcL (140-400); Red Blood Count 4.63 M/mcL (4.19-5.50); Red Cell Distribution Width 13.7 % (11.5-14.5); Segmented Neutrophils % 64.9 %
[2018-02-04 06:58] LABS: INR 1.1; Prothrombin Time 11.9 Seconds (9.4-12.1)
[2018-02-04 07:12] LABS: Alanine Aminotransferase 48 Units/L (7-52); Albumin 3.9 g/dL (3.5-5.7); Albumin/Globulin Ratio 1.3 (1.1-2.2); Alkaline Phosphatase 64 Units/L (34-104); Aspartate Amino Transferase 36 Units/L (13-39); BUN/Creatinine Ratio 22 (6-26); Bilirubin,Total 0.5 mg/dL (0.3-1.0); Blood Urea Nitrogen 16 mg/dL (6-20); Calcium 8.8 mg/dL (8.6-10.3); Carbon Dioxide 25 mEq/L (23-29); Chloride 104 mEq/L (98-107); Chol/HDL Ratio 4.3 (0-4.9); Cholesterol 142 mg/dL (< 200); Glucose 197 mg/dL (70-105); HDL Cholesterol 33 mg/dL (40-59); LDL Cholesterol,Calculated 89 mg/dL (0-99); Magnesium 1.7 mg/dL (1.6-2.6); Osmolality,Calculated 289 (280-300); Phosphorous 2.3 mg/dL (2.7-4.5); Potassium 3.9 mEq/L (3.5-5.1); Sodium 136 mEq/L (136-145); Total Protein 6.9 g/dL (6.4-8.9); Triglycerides 102 mg/dL (< 150); eGFR For African Americans > 60 (> 60); eGFR For Non-African Americans > 60 (> 60)
[2018-02-04] MEDS: Thiamine (B-1) 100 MG TABLET PO SCH (07:43)
[2018-02-04] MEDS: Vitamin B Complex/Vit C/Vit E 1 EACH TABLET PO SCH (07:43)
[2018-02-04] MEDS: hydroCHLOROthiazide 25 MG TABLET PO SCH (07:43)
[2018-02-04] MEDS: Lisinopril 20 MG TABLET PO SCH (07:44)
[2018-02-04] MEDS: Insulin LISPRO 300 UNITS/3 ML VIAL SQ SCH ×4 (07:44→21:19)
[2018-02-04] MEDS: Aspirin Enteric Coated 81 MG Tablet PO SCH (07:44)
[2018-02-04] MEDS: Gabapentin 300 MG CAPSULE PO SCH ×4 (07:44→21:09)
[2018-02-04] MEDS: amLODIPine 5 MG TABLET PO SCH (07:44)
[2018-02-04] MEDS: Nicotine 21 MG PATCH.TD24 TD SCH (07:45)
[2018-02-04] MEDS: cloNIDine HCl 0.1 MG TABLET PO SCH ×2 (07:45→21:09)
[2018-02-04] MEDS: Folic Acid 1 MG TABLET PO SCH (07:45)
[2018-02-04] MEDS: 0.9 % Sodium Chloride 1,000 ML IVC SCH (08:02)
[2018-02-04] MEDS ORDERED: Folic Acid 1 MG TABLET PO SCH (09:00)
[2018-02-04] MEDS: *HR* LORazepam 2 MG/ML VIAL IVP PRN ×4 (13:16→21:10)
--- NOTE | 2018-02-04 13:50 | Internal Med Progress Note ---
Date of Encounter: 02/04/18 Time of Encounter: 14:40 - Assessment and plan (1) Depression Current Visit: Yes Status: Chronic Assessment and plan: continue home meds Qualifiers: Depression Type: major depressive disorder Major depression recurrence: recurrent Active/Remission status: currently active Major depression episode severity: moderate Qualified Code(s): F33.1 - Major depressive disorder, recurrent, moderate (2) Alcohol withdrawal Current Visit: Yes Status: Acute Assessment and plan: continue CIWA protocol with Ativan only, d/c diazepam m/T/F, continue same Patient interested in detox, SW aware and following Qualifiers: Complication of substance-induced condition: uncomplicated Qualified Code(s ): F10.230 - Alcohol dependence with withdrawal, uncomplicated (3) Delirium tremens Current Visit: Yes Status: Acute Assessment and plan: as above (4) Hypertension Current Visit: Yes Status: Chronic Assessment and plan: continue current meds Qualifiers: Hypertension type: essential hypertension Qualified Code(s): I10 - Essential (primary) hypertension (5) Tobacco abuse Current Visit: Yes Status: Chronic Assessment and plan: encourage cessation (6) Anxiety Current Visit: Yes Status: Chronic Assessment and plan: continue ativan, not on BZPS as out-patient officially (7) DM2 (diabetes mellitus, type 2) Current Visit: Yes Status: Chronic Assessment and plan: SSI, FS ACHS, ADA diet Qualifiers: Diabetes mellitus oil heaterman insulin use: without chcf use Diabetes mellitus complication status: with unspecified complications Qualified Code(s) : E11.8 - Type 2 diabetes mellitus with unspecified complications (8) Diastolic CHF, chronic Current Visit: Yes Status: Chronic Assessment and plan: continue home dose of lasix, currently [facility] - Time Spent With Patient Total time spent is greater than 50% in coordination of care (as documented) at patient's floor/unit and/or counseling patient: - Subjective Interval history: Seen and examined at bedside No new complains Known to be drug seeking Patient was rubio before m entry into his room but began to shake when I got into his room, however , he has significant hx of fifi, opiate, BZP abuse We will continue CIWA protocol reports non-compliance with home meds, states he has been selling his meds to buy illegal drugs - Constitutional Vitals: Temp Pulse Resp BP Pulse Ox 98.0 F 83 16 168/83 97 02/04/18 10:14 02/04/18 10:14 02/04/18 10:14 02/04/18 10:14 02/04/18 10:14 General appearance: Present: A&O X 3, morbidly obese, no acute distress, answers questions appropriately - Head Head exam: Present: atraumatic, normocephalic - Eye Eye exam: Present: PERRL, conjuntiva pink, sclera anicteric Pupils: Present: PERRL - Neck Neck exam general surgery: Present: supple, trachea midline. Absent: lymphadenopathy - Respiratory Respiratory exam: Present: CTAB. Absent: accessory muscle use, rales, rhonchi, wheezes - Cardiovascular Cardiovascular exam: Present: RRR, +S1, +S2. Absent: diastolic murmur, gallop, rubs, systolic murmur - GI/Abdominal GI/Abdominal exam: Present: normal bowel sounds, soft, no peritoneal signs. Absent: distended, tenderness - Extremities Exam Extremities exam: Present: warm, radial pulses palpable and symmetrical. Absent : calf tenderness, cyanotic, pedal edema - Neurological Exam Neurological exam: Present: alert, CN II-XII intact, oriented X3, no focal deficits. Absent: pronater drift, facial droop, speech deficit - Skin Skin exam: Present: dry, intact Internal Medicine: Result - Labs CBC & Chem 7: 02/04/18 06:25 02/04/18 06:25 Labs: Short CBC 02/04/18 Range/Units 06:25 WBC 6.6 (4.3-11.1) K/mcL Hgb 13.9 (12.9-16.9) g/dL Hct 42.4 (37.5-50.1) % Plt Count 184 (140-400) K/mcL Neutrophils # 4.3 (1.6-8.9) K/mcL BMP 02/04/18 06:25 Sodium 136 Potassium 3.9 Chloride 104 Carbon Dioxide 25 BUN 16 Creatinine 0.74 Glucose 197 H Calcium 8.8 Liver Function 02/04/18 Range/Units 06:25 Total Bilirubin 0.5 (0.3-1.0) mg/dL AST 36 (13-39) Units/L ALT 48 (7-52) Units/L Alkaline Phosphatase 64 (34-104) Units/L Albumin 3.9 (3.5-5.7) g/dL - ABG Interpretation ABG results: PT/INR, D-dimer PT 11.9 Seconds (9.4-12.1) 02/04/18 06:25 Consult Discharge Plan - Plan Referrals: NONE,PCP [Primary Care Provider] -
[2018-02-04] MEDS: Acetaminophen 325 MG TABLET PO PRN (18:39)
[2018-02-05] MEDS: *HR* LORazepam 2 MG/ML VIAL IVP PRN ×5 (03:10→21:24)
[2018-02-05] MEDS: Nicotine 21 MG PATCH.TD24 TD SCH (09:29)
[2018-02-05] MEDS: *HR* Enoxaparin 40 MG/0.4 ML SYRINGE SQ SCH (09:30)
[2018-02-05] MEDS: hydroCHLOROthiazide 25 MG TABLET PO SCH (09:31)
[2018-02-05] MEDS: Aspirin Enteric Coated 81 MG Tablet PO SCH (09:31)
[2018-02-05] MEDS: Lisinopril 20 MG TABLET PO SCH (09:31)
[2018-02-05] MEDS: Gabapentin 300 MG CAPSULE PO SCH ×4 (09:31→20:08)
[2018-02-05] MEDS: Vitamin B Complex/Vit C/Vit E 1 EACH TABLET PO SCH (09:31)
[2018-02-05] MEDS: Folic Acid 1 MG TABLET PO SCH (09:32)
[2018-02-05] MEDS: Thiamine (B-1) 100 MG TABLET PO SCH (09:32)
[2018-02-05] MEDS: Insulin LISPRO 300 UNITS/3 ML VIAL SQ SCH ×3 (09:32→17:06)
[2018-02-05] MEDS: amLODIPine 5 MG TABLET PO SCH (09:32)
[2018-02-05] MEDS: cloNIDine HCl 0.1 MG TABLET PO SCH ×2 (09:32→20:08)
--- NOTE | 2018-02-05 13:35 | Internal Med Progress Note ---
Date of Encounter: 02/05/18 Time of Encounter: 13:33 - Assessment and plan (1) Depression Current Visit: Yes Status: Chronic Assessment and plan: continue home meds Qualifiers: Depression Type: major depressive disorder Major depression recurrence: recurrent Active/Remission status: currently active Major depression episode severity: moderate Qualified Code(s): F33.1 - Major depressive disorder, recurrent, moderate (2) Alcohol withdrawal Current Visit: Yes Status: Acute Assessment and plan: continue CIWA protocol with Ativan only, d/c diazepam m/T/F, continue same Patient interested in detox, SW aware and following Qualifiers: Complication of substance-induced condition: uncomplicated Qualified Code(s ): F10.230 - Alcohol dependence with withdrawal, uncomplicated (3) Delirium tremens Current Visit: Yes Status: Acute Assessment and plan: as above (4) Hypertension Current Visit: Yes Status: Chronic Assessment and plan: continue current meds Qualifiers: Hypertension type: essential hypertension Qualified Code(s): I10 - Essential (primary) hypertension (5) Tobacco abuse Current Visit: Yes Status: Chronic Assessment and plan: encourage cessation (6) Anxiety Current Visit: Yes Status: Chronic Assessment and plan: continue ativan, not on BZPS as out-patient officially (7) DM2 (diabetes mellitus, type 2) Current Visit: Yes Status: Chronic Assessment and plan: SSI, FS ACHS, ADA diet Qualifiers: Diabetes mellitus long term care pharmacist insulin use: without senior care use Diabetes mellitus complication status: with unspecified complications Qualified Code(s) : E11.8 - Type 2 diabetes mellitus with unspecified complications (8) Diastolic CHF, chronic Current Visit: Yes Status: Chronic Assessment and plan: continue home dose of lasix, currently [facility] - Time Spent With Patient Total time spent is greater than 50% in coordination of care (as documented) at patient's floor/unit and/or counseling patient: - Subjective Interval history: Seen and examined at bedside No new complains reports non-compliance with home meds, states he has been selling his meds to buy illegal drugs On CIWA protocol, continue same Patient requesting Gabapentin, will check OARSS - Constitutional Vitals: Temp Pulse Resp BP Pulse Ox 98.7 F 85 16 139/75 95 02/05/18 11:00 02/05/18 11:00 02/05/18 11:00 02/05/18 11:00 02/05/18 11:00 General appearance: Present: A&O X 3, morbidly obese, no acute distress, answers questions appropriately - Head Head exam: Present: atraumatic, normocephalic - Eye Eye exam: Present: PERRL, conjuntiva pink, sclera anicteric Pupils: Present: PERRL - Neck Neck exam general surgery: Present: supple, trachea midline. Absent: lymphadenopathy - Respiratory Respiratory exam: Present: CTAB. Absent: accessory muscle use, rales, rhonchi, wheezes - Cardiovascular Cardiovascular exam: Present: RRR, +S1, +S2. Absent: diastolic murmur, gallop, rubs, systolic murmur - GI/Abdominal GI/Abdominal exam: Present: normal bowel sounds, soft, no peritoneal signs. Absent: distended, tenderness - Extremities Exam Extremities exam: Present: warm, radial pulses palpable and symmetrical. Absent : calf tenderness, cyanotic, pedal edema Additional comments: chronic venous stasis changes - Neurological Exam Neurological exam: Present: alert, CN II-XII intact, oriented X3, no focal deficits. Absent: pronater drift, facial droop, speech deficit - Skin Skin exam: Present: dry, intact Internal Medicine: Result - Labs CBC & Chem 7: 02/04/18 06:25 02/04/18 06:25 - ABG Interpretation ABG results: PT/INR, D-dimer PT 11.9 Seconds (9.4-12.1) 02/04/18 06:25 Consult Discharge Plan - Plan Referrals: NONE,PCP [Primary Care Provider] -
[2018-02-05] MEDS: Acetaminophen 325 MG TABLET PO PRN (15:43)
[2018-02-06] MEDS: Insulin LISPRO 300 UNITS/3 ML VIAL SQ SCH ×2 (04:11→09:09)
[2018-02-06] MEDS: *HR* Enoxaparin 40 MG/0.4 ML SYRINGE SQ SCH (04:12)
[2018-02-06] MEDS: *HR* LORazepam 2 MG/ML VIAL IVP PRN ×2 (07:32→09:09)
[2018-02-06] MEDS: Thiamine (B-1) 100 MG TABLET PO SCH (07:44)
[2018-02-06] MEDS: Aspirin Enteric Coated 81 MG Tablet PO SCH (07:44)
[2018-02-06] MEDS: Vitamin B Complex/Vit C/Vit E 1 EACH TABLET PO SCH (07:44)
[2018-02-06] MEDS: amLODIPine 5 MG TABLET PO SCH (07:44)
[2018-02-06] MEDS: Nicotine 21 MG PATCH.TD24 TD SCH (07:44)
[2018-02-06] MEDS: hydroCHLOROthiazide 25 MG TABLET PO SCH (07:44)
[2018-02-06] MEDS: Gabapentin 300 MG CAPSULE PO SCH (07:44)
[2018-02-06] MEDS: Lisinopril 20 MG TABLET PO SCH (07:44)
[2018-02-06] MEDS: Folic Acid 1 MG TABLET PO SCH (07:44)
[2018-02-06] MEDS: cloNIDine HCl 0.1 MG TABLET PO SCH (07:44)
[2018-02-06 09:08] VITALS: BP 163/81
--- NOTE | 2018-02-06 11:06 | Discharge Summary ---
- NOTES TO OUTPATIENT PROVIDER Notes to Outpatient Provider: Admitted for alcohol withdrawal, left AMA, refused detox, states he has all his home medications Date of Encounter: 02/06/18 Time of Encounter: 11:02 - Discharge Diagnosis (1) Depression Priority: Secondary Status: Chronic Qualifiers: Depression Type: major depressive disorder Major depression recurrence: recurrent Active/Remission status: currently active Major depression episode severity: moderate Qualified Code(s): F33.1 - Major depressive disorder, recurrent, moderate (2) Alcohol withdrawal Priority: Primary Status: Acute Qualifiers: Complication of substance-induced condition: uncomplicated Qualified Code(s ): F10.230 - Alcohol dependence with withdrawal, uncomplicated (3) Delirium tremens Priority: Primary Status: Acute (4) Hypertension Priority: Secondary Status: Chronic Qualifiers: Hypertension type: essential hypertension Qualified Code(s): I10 - Essential (primary) hypertension (5) Tobacco abuse Priority: Secondary Status: Chronic (6) Anxiety Priority: Secondary Status: Chronic (7) DM2 (diabetes mellitus, type 2) Priority: Secondary Status: Chronic Qualifiers: Diabetes mellitus watermaster insulin use: without custodial use Diabetes mellitus complication status: with unspecified complications Qualified Code(s) : E11.8 - Type 2 diabetes mellitus with unspecified complications (8) Diastolic CHF, chronic Priority: Secondary Status: Chronic Hospital course: Mr. Adams is a 47 year old male with poly substance abuse, alcohol abuse, diastolic CHF, DM, Depression/anxiety, HTN, Morbid obesity Admitted for alcohol withdrawal, walked to the nursing station today asking to leave AMA Educated about risks of progression of DTs, seizures, resp failure and , verbalized understanding, AAOX3, ambulatory and not in distress In addition, he stated he has his cardiac and DM medications and can fill them from [facility]. Alcohol and tobacco cessation counselling done for 3 mins Discharge discussed with: patient, nurse - Time Spent with Patient Total time spent providing and/or coordinating discharge services: Less than 30 minutes - Discharge Medications Home Medications: Amlodipine Besylate 10 mg PO DAILY #30 tablet 01/15/18 [Rx] Gabapentin [Neurontin] 600 mg PO QID 01/15/18 [History] Lisinopril [Zestril] 40 mg PO DAILY #30 tablet 01/15/18 [Rx] metFORMIN [Glucophage] 500 mg PO BIDWM #60 tablet 01/15/18 [Rx] Acetaminophen [Tylenol] 650 mg PO Q6HR PRN tablet 01/30/18 [Rx] Aspirin Enteric Coated [Aspirin EC] 81 mg PO DAILY tablet. 01/30/18 [Rx] Atorvastatin [Lipitor] 20 mg PO HS tablet 01/30/18 [Rx] Folic Acid 1 mg PO DAILY tablet 01/30/18 [Rx] Thiamine (B-1) [Vitamin B-1] 100 mg PO DAILY tablet 01/30/18 [Rx] cloNIDine HCl [CloNIDine HCl] 0.1 mg PO BID tablet 01/30/18 [Rx] hydroCHLOROthiazide [Hydrochlorothiazide] 25 mg PO DAILY tablet 01/30/18 [Rx] Allergies/Adverse Reactions: 3 Allergy/AdvReac Type Severity Reaction Status Date / Time Amoxicillin Allergy Hives Verified 02/03/18 13:51 Penicillins Allergy Hives Verified 02/03/18 13:51 quetiapine [From Seroquel] Allergy Hives Verified 02/03/18 13:51 chlordiazepoxide AdvReac Gastrointestinal Verified 02/03/18 13:51 [From Librium] Upset Date of admission: 02/03/18 16:41 Primary care physician: PCP NONE Consults: 02/03/18 17:35 Consult to Slusher Operator [CONS] Routine Reason for SW Consult: Homeless Discharging clinician: Christopher Warren Anticipated date of discharge: 02/06/18 - Constitutional Vitals: Temp Pulse Resp BP Pulse Ox 98 F 93 20 163/81 96 02/06/18 08:49 02/06/18 08:49 02/06/18 08:49 02/06/18 08:49 02/06/18 08:49 General appearance: Present: A&O X 3, morbidly obese, no acute distress, answers questions appropriately - Head Head exam: Present: atraumatic, normocephalic - Eye Eye exam: Present: PERRL, conjuntiva pink, sclera anicteric Pupils: Present: PERRL - Neck Neck exam general surgery: Present: supple, trachea midline. Absent: lymphadenopathy - Respiratory Respiratory exam: Present: CTAB. Absent: accessory muscle use, rales, rhonchi, wheezes - Cardiovascular Cardiovascular exam: Present: RRR, +S1, +S2. Absent: diastolic murmur, gallop, rubs, systolic murmur - GI/Abdominal GI/Abdominal exam: Present: normal bowel sounds, soft, no peritoneal signs. Absent: distended, tenderness - Extremities Exam Additional comments: chronic venous stasis changes - Neurological Exam Neurological exam: Present: alert, CN II-XII intact, oriented X3, no focal deficits. Absent: pronater drift, facial droop, speech deficit - Skin Skin exam: Present: dry, intact - Patient Status Disposition: Left Against Medical Advice Condition: Good Functional capacity at discharge: independent ambulation Overall status at discharge: patient is progressing back to baseline - Discharge Instructions Follow Up With: NONE,PCP [Primary Care Provider] - - Diet and Activity Diet: diabetic diet, low fat, low cholesterol, low salt diet
== END 2018-02-06 10:27 | disposition left against medical advice (07) | DRG 894 ==
LOC: 2ANU 13:43 → EMEROO 13:43 → SUATTDRO 16:41 → 2ANU 17:16
PROVIDERS: ADMIT Family Medicine; ATTEND Internal Medicine

== ENCOUNTER 2018-03-06 21:57 | Inpatient (IN) ==
[2018-03-06 22:31] LABS: Bilirubin,Urine Negative (Negative); Blood,Urine Negative (Negative); Clarity,Urine Clear (Clear); Color,Urine Yellow (Yellow); Glucose,Urine (UA) Normal (Normal); Ketones,Urine Negative (Negative); Leukocyte Esterase,Urine Negative (Negative); Nitrite,Urine Negative (Negative); PH,Urine 5.5 pH Units (5.0-8.0); Protein,Urine 30 mg/dL (Neg-Trace); Specific Gravity,Urine > 1.030 (1.010-1.025); Urobilinogen,Urine Normal (Normal)
[2018-03-06 22:32] LABS: Bacteria,Urine None Seen per hpf (None-Few); RBC,Urine 0-3 per hpf (0-3); Squamous Epithelial Cell,Urine Many per lpf (None-Few); WBC,Urine 0-3 per hpf (0-3)
[2018-03-06 22:38] LABS: Amphetamine Screen,Urine Negative ng/mL (Cutoff=1000); Barbiturate Screen,Urine Positive ng/mL (Cutoff=200); Benzodiazepines Screen,Urine Positive ng/mL (Cutoff=200); Cannabinoid Screen,Urine Positive ng/mL (Cutoff = 50); Cocaine Screen,Urine Positive ng/mL (Cutoff= 300); Opiate Screen,Urine Positive ng/mL (Cutoff=300); Phencyclidine Screen,Urine Negative ng/mL (Cutoff=25)
[2018-03-06] MEDS ORDERED: Thiamine (B-1) 100 MG in D5% in Water 50 ML IVPB STA (22:51)
[2018-03-06] MEDS ORDERED: *HR* LORazepam 2 MG/ML VIAL IVP ONE (22:52)
[2018-03-06 23:06] LABS: Basophils # 0.1 K/mcL (0.0-0.2); Basophils % 0.6 %; Eosinophils # 0.2 K/mcL (0.0-0.6); Eosinophils % 2.2 %; Hematocrit 43.7 % (37.5-50.1); Hemoglobin 15.2 g/dL (12.9-16.9); Immature Granulocytes % 0.4 % (0-4); Immature Platelets 1.9 % (1.1-6.1); Lymphocytes # 2.6 K/mcL (0.6-4.6); Lymphocytes % 25.4 %; Mean Corpuscular HGB Conc 34.8 g/dL (31.6-35.5); Mean Corpuscular Hemoglobin 30.3 pg (28.0-33.3); Mean Corpuscular Volume 87.1 fL (83.0-100.0); Mean Platelet Volume 9.7 fL (9.4-12.4); Monocytes # 0.9 K/mcL (0.0-1.3); Monocytes % 8.3 %; Neutrophils # 6.5 K/mcL (1.6-8.9); Platelet Count 251 K/mcL (140-400); Red Blood Count 5.02 M/mcL (4.19-5.50); Red Cell Distribution Width 13.8 % (11.5-14.5); Segmented Neutrophils % 63.1 %
[2018-03-06 23:09] LABS: Acetaminophen < 10 mcg/mL (10-20); Alanine Aminotransferase 58 Units/L (7-52); Albumin 4.7 g/dL (3.5-5.7); Albumin/Globulin Ratio 1.4 (1.1-2.2); Alkaline Phosphatase 74 Units/L (34-104); Aspartate Amino Transferase 44 Units/L (13-39); BUN/Creatinine Ratio 19 (6-26); Bilirubin,Direct 0.2 mg/dL (0.0-0.2); Bilirubin,Indirect 0.3 mg/dL (0.0-1.2); Bilirubin,Total 0.5 mg/dL (0.3-1.0); Blood Urea Nitrogen 19 mg/dL (6-20); Calcium 9.9 mg/dL (8.6-10.3); Carbon Dioxide 20 mEq/L (23-29); Chloride 105 mEq/L (98-107); Ethanol 18 mg/dL (Less than 10); Globulin 3.3 g/dL (2.4-3.5); Glucose 125 mg/dL (70-105); Osmolality,Calculated 290 (280-300); Salicylate < 2.5 mg/dL (15.0-30.0); Sodium 138 mEq/L (136-145); eGFR For African Americans > 60 (> 60); eGFR For Non-African Americans > 60 (> 60)
[2018-03-06] MEDS: Multivit/Ca/Min/Fe/FA 1 TAB TABLET PO SCH (23:50)
--- NOTE | 2018-03-07 | Emergency Department Note ---
Disposition Clinical Impression: Suicidal ideation Alcohol withdrawal Qualifiers: Complication of substance-induced condition: uncomplicated Qualified Code(s): F10.230 - Alcohol dependence with withdrawal, uncomplicated Disposition: Admitted As Inpatient Condition: Fair Time of Disposition: 05:25 General Adult HPI - General Chief complaint: ED Psychiatric Symptoms Stated complaint: "SI/Alcohol Withdrawal" Time Seen by Provider: 03/06/18 22:19 Source: patient Mode of arrival: ambulatory Limitations: no limitations Nursing Notes Reviewed: Yes Vital Signs Reviewed: Yes - History of Present Illness HPI Narrative: Patient is a 39-year-old male with past medical history of alcoholism as well as IV junk use presents for evaluation of alcohol withdrawal symptoms as well as suicidal ideation. The patient states that he attempted to quit alcohol at 2 :00 AM yesterday morning. States that he normally drinks a 24 pack of beer per daily he states he uses IV heroin with the last use being Friday. States that he did have one drink at 7:00 AM this morning due to his withdrawal symptoms. States that he also does not want to live anymore due to his alcoholism he states that he feels that people looking at him as if he is this, but hers. He denies any homicidal ideation. He denies any hallucinations. States he mainly has tremors and feels pins and needle sensations in his hands and feet. Pain Scale: 8 - Related Data Home Medications Medication Instructions Recorded Confirmed Gabapentin [Neurontin] 600 mg PO QID 01/15/18 02/03/18 Previous Rx's Medication Instructions Recorded Amlodipine Besylate 10 mg PO DAILY #30 tablet 01/15/18 Lisinopril [Zestril] 40 mg PO DAILY #30 tablet 01/15/18 metFORMIN [Glucophage] 500 mg PO BIDWM #60 tablet 01/15/18 Acetaminophen [Tylenol] 650 mg PO Q6HR PRN tablet 01/30/18 Aspirin Enteric Coated [Aspirin EC] 81 mg PO DAILY tablet. 01/30/18 Atorvastatin [Lipitor] 20 mg PO HS tablet 01/30/18 Folic Acid 1 mg PO DAILY tablet 01/30/18 Thiamine (B-1) [Vitamin B-1] 100 mg PO DAILY tablet 01/30/18 cloNIDine HCl [CloNIDine HCl] 0.1 mg PO BID tablet 01/30/18 hydroCHLOROthiazide 25 mg PO DAILY tablet 01/30/18 [Hydrochlorothiazide] Allergies Allergy/AdvReac Type Severity Reaction Status Date / Time Amoxicillin Allergy Hives Verified 03/06/18 22:00 Penicillins Allergy Hives Verified 03/06/18 22:00 quetiapine [From Seroquel] Allergy Hives Verified 03/06/18 22:00 chlordiazepoxide AdvReac Gastrointestinal Verified 03/06/18 22:00 [From Librium] Upset All systems ED: reviewed and negative except as stated. Review of Systems: As Per HPI Constitutional: Reports: chills, other. Denies: fever Eyes: Denies: vision change (Tremors) Cardiovascular: Denies: chest pain, palpitations, dyspnea on exertion Respiratory: Denies: cough, dyspnea, wheezes Gastrointestinal: Denies: abdominal pain, nausea, vomiting Integumentary: Denies: rash Neurological: Reports: headache, paresthesias. Denies: weakness, numbness, confusion, abnormal gait Psychiatric: Reports: suicidal thoughts. Denies: anxiety, depression, homicidal thoughts, auditory hallucinations, visual hallucinations Past Medical History - Past Medical History Attestation: Yes The following information was validated with the patient. Medical history: Reports: diabetes, hypertension Surgical history: Reports: no surgical history Psychiatric history: Reports: anxiety, depression - Social History Smoking Status: Current every day smoker Smokeless Tobacco Status: No Alcohol use: Reports: heavy, recent Drug use: Reports: opiates, marijuana, prescription drug abuse Physical Exam - General Limitations: no limitations General appearance: alert, in no apparent distress, other (Patient does have a diffuse tremor, he is oriented 3.) - Head Head exam: atraumatic, normocephalic, normal inspection - Eye Eye exam: Present: normal appearance, PERRL, EOMI - ENT ENT exam: normal exam, mucous membranes dry - Neck Neck exam: Present: normal inspection, full ROM, trachea midline - Chest Chest inspection: Present: normal inspection, symmetric chest wall rise - Respiratory Respiratory exam: Present: normal lung sounds bilaterally. Absent: respiratory distress, wheezes - Cardiovascular Cardiovascular exam: Present: regular rate, normal rhythm, normal heart sounds, +S1, +S2 - Abdominal Exam Abdominal exam: Present: soft, Non-Tender, normal bowel sounds - Extremities Exam Extremities exam: Present: normal inspection, full ROM, normal capillary refill. Absent: tenderness - Back Exam Back exam: Present: normal inspection, full ROM. Absent: tenderness, CVA tenderness (R), CVA tenderness (L) - Neurological Exam Neurological exam: Present: alert, oriented X3, CN II-XII intact, reflexes normal. Absent: motor sensory deficit - Psychiatric Psychiatric exam: Present: normal affect, anxious, suicidal ideation. Absent: homicidal ideation - Skin Skin exam: Present: warm, dry, intact, normal color Course Course Narrative: Patient presents for EtOH withdrawal as well as SI with history of IV drug use. Please see while score at this time is greater than 10 he will be given 2 mg of Ativan for his withdrawal symptoms. He will undergo medical clearance for psychiatry, however he will ultimately need to be admitted to the medicine floor due to his EtOH withdrawal. I will also order IV thiamine. Vital Signs Temperature 98.2 F 03/06/18 22:00 Pulse Rate 107 03/06/18 22:00 Respiratory Rate 18 03/06/18 22:00 Blood Pressure 191/92 03/06/18 22:00 O2 Sat by Pulse Oximetry 95 03/06/18 22:00 Temperature 97.9 F 03/07/18 02:54 Pulse Rate 88 03/07/18 02:54 Respiratory Rate 18 03/07/18 03:11 Blood Pressure 155/97 03/07/18 03:11 O2 Sat by Pulse Oximetry 96 03/07/18 02:54 Oxygen Delivery Oxygen Delivery Room Air Medical Decision Making - Medical Records Medical records reviewed: Yes I reviewed the patient's medical records. - Lab Data Lab results reviewed: Yes I reviewed the patient's lab results. Result diagrams: 03/06/18 22:37 03/06/18 22:37 Lab Results 03/06/18 03/06/18 03/06/18 Range/Units 22:15 22:15 22:37 WBC 10.3 (4.3-11.1) K/mcL RBC 5.02 (4.19-5.50) M/mcL Hgb 15.2 (12.9-16.9) g/dL Hct 43.7 (37.5-50.1) % MCV 87.1 (83.0-100.0) fL MCH 30.3 (28.0-33.3) pg MCHC 34.8 (31.6-35.5) g/dL RDW 13.8 (11.5-14.5) % Plt Count 251 (140-400) K/mcL MPV 9.7 (9.4-12.4) fL Immature Gran % 0.4 (0-4) % Seg Neutrophils % 63.1 % Lymphocytes % 25.4 % Monocytes % 8.3 % Eosinophils % 2.2 % Basophils % 0.6 % Neutrophils # 6.5 (1.6-8.9) K/mcL Lymphocytes # 2.6 (0.6-4.6) K/mcL Monocytes # 0.9 (0.0-1.3) K/mcL Eosinophils # 0.2 (0.0-0.6) K/mcL Basophils # 0.1 (0.0-0.2) K/mcL Immature Plt Fraction 1.9 (1.1-6.1) % Sodium (136-145) mEq/L Potassium (3.5-5.1) mEq/L Chloride (98-107) mEq/L Carbon Dioxide (23-29) mEq/L BUN (6-20) mg/dL Creatinine (0.70-1.30) mg/dL Est GFR ( Amer) (> 60) Est GFR (Non-Af Amer) (> 60) BUN/Creatinine Ratio (6-26) Glucose (70-105) mg/dL Calculated Osmolality (280-300) Calcium (8.6-10.3) mg/dL Total Bilirubin (0.3-1.0) mg/dL Direct Bilirubin (0.0-0.2) mg/dL Indirect Bilirubin (0.0-1.2) mg/dL AST (13-39) Units/L ALT (7-52) Units/L Alkaline Phosphatase (34-104) Units/L Serum Total Protein (6.4-8.9) g/dL Albumin (3.5-5.7) g/dL Globulin (2.4-3.5) g/dL Albumin/Globulin Ratio (1.1-2.2) Urine Color Yellow (Yellow) Urine Clarity Clear (Clear) Urine pH 5.5 (5.0-8.0) pH Units Ur Specific Salters > 1.030 H (1.010-1.025) Urine Protein 30 H (Neg-Trace) mg/dL Urine Glucose (UA) Normal (Normal) mg/dL Urine Ketones Negative (Negative) mg/dL Urine Blood Negative (Negative) Urine Nitrite Negative (Negative) Urine Bilirubin Negative (Negative) Urine Urobilinogen Normal (Normal) mg/dL Ur Leukocyte Esterase Negative (Negative) Urine Microscopic RBC 0-3 (0-3) per hpf Urine Microscopic WBC 0-3 (0-3) per hpf Ur Squamous Epith Cells Many H (None-Few) per lpf Urine Bacteria None Seen (None-Few) per hpf Salicylates (15.0-30.0) mg/dL Urine Opiates Screen Positive H (Rqxtsz=910) ng/mL Acetaminophen (10-20) mcg/mL Ur Barbiturates Screen Positive H (Haucdi=756) ng/mL Ur Phencyclidine Scrn Negative (Cutoff=25) ng/mL Ur Amphetamines Screen Negative (Kfvyrj=9643) ng/mL U Benzodiazepines Scrn Positive H (Ybuxvm=779) ng/mL Urine Cocaine Screen Positive H (Cutoff= 300) ng/mL U Marijuana (THC) Screen Positive H (Cutoff = 50) ng/mL Ur Drug Screen Interp See Below Ethyl Alcohol (Less than 10) mg/dL 03/06/18 Range/Units 22:37 WBC (4.3-11.1) K/mcL RBC (4.19-5.50) M/mcL Hgb (12.9-16.9) g/dL Hct (37.5-50.1) % MCV (83.0-100.0) fL MCH (28.0-33.3) pg MCHC (31.6-35.5) g/dL RDW (11.5-14.5) % Plt Count (140-400) K/mcL MPV (9.4-12.4) fL Immature Gran % (0-4) % Seg Neutrophils % % Lymphocytes % % Monocytes % % Eosinophils % % Basophils % % Neutrophils # (1.6-8.9) K/mcL Lymphocytes # (0.6-4.6) K/mcL Monocytes # (0.0-1.3) K/mcL Eosinophils # (0.0-0.6) K/mcL Basophils # (0.0-0.2) K/mcL Immature Plt Fraction (1.1-6.1) % Sodium 138 (136-145) mEq/L Potassium 3.0 L (3.5-5.1) mEq/L Chloride 105 (98-107) mEq/L Carbon Dioxide 20 L (23-29) mEq/L BUN 19 (6-20) mg/dL Creatinine 1.02 (0.70-1.30) mg/dL Est GFR ( Amer) > 60 (> 60) Est GFR (Non-Af Amer) > 60 (> 60) BUN/Creatinine Ratio 19 (6-26) Glucose 125 H (70-105) mg/dL Calculated Osmolality 290 (280-300) Calcium 9.9 (8.6-10.3) mg/dL Total Bilirubin 0.5 (0.3-1.0) mg/dL Direct Bilirubin 0.2 (0.0-0.2) mg/dL Indirect Bilirubin 0.3 (0.0-1.2) mg/dL AST 44 H (13-39) Units/L ALT 58 H (7-52) Units/L Alkaline Phosphatase 74 (34-104) Units/L Serum Total Protein 8.0 (6.4-8.9) g/dL Albumin 4.7 (3.5-5.7) g/dL Globulin 3.3 (2.4-3.5) g/dL Albumin/Globulin Ratio 1.4 (1.1-2.2) Urine Color (Yellow) Urine Clarity (Clear) Urine pH (5.0-8.0) pH Units Ur Specific Salters (1.010-1.025) Urine Protein (Neg-Trace) mg/dL Urine Glucose (UA) (Normal) mg/dL Urine Ketones (Negative) mg/dL Urine Blood (Negative) Urine Nitrite (Negative) Urine Bilirubin (Negative) Urine Urobilinogen (Normal) mg/dL Ur Leukocyte Esterase (Negative) Urine Microscopic RBC (0-3) per hpf Urine Microscopic WBC (0-3) per hpf Ur Squamous Epith Cells (None-Few) per lpf Urine Bacteria (None-Few) per hpf Salicylates < 2.5 L (15.0-30.0) mg/dL Urine Opiates Screen (Cvyvdr=528) ng/mL Acetaminophen < 10 L (10-20) mcg/mL Ur Barbiturates Screen (Fbcchx=705) ng/mL Ur Phencyclidine Scrn (Cutoff=25) ng/mL Ur Amphetamines Screen (Mlhmna=4087) ng/mL U Benzodiazepines Scrn (Xbfwou=263) ng/mL Urine Cocaine Screen (Cutoff= 300) ng/mL U Marijuana (THC) Screen (Cutoff = 50) ng/mL Ur Drug Screen Interp Ethyl Alcohol 18 H (Less than 10) mg/dL - Radiology Data Radiology results reviewed: Yes I reviewed the patient's radiology results. Head CT 03/06/18 22:52 IMPRESSION: No acute intracranial abnormality. D/ / Mathew Mathis / Mathew Mathis Interpreting Provider: Mathew Mathis Chest X-Ray 03/06/18 22:53 IMPRESSION: Stable portable study. D/ / Laury Ralph Cha, MD / Laury Ralph Cha, MD Interpreting Provider: Laury Ralph Cha, MD - EKG Data EKG #1 EKG attestation: Yes I reviewed and interpreted this EKG. EKG results narrative: EKG done at 23:53 shows sinus rhythm at a rate of 93 bpm. Normal access. No signs of ST elevation, ST depression or Q waves present. No ischemic changes. Attestation Statement - Attestation Attestation: I examined this patient and my medical decision-making was reviewed with the Resident Physician. I agree with the documented findings, disposition and treatment plan as described except to the extent set forth below. Findings consistent with alcohol withdrawal. We will start [place], admitted for further management.
[2018-03-07] MEDS ORDERED: *HR* LORazepam 2 MG/ML VIAL IVP ONE (01:06)
--- NOTE | 2018-03-07 02:31 | Internal Med History&Physical ---
Date of Encounter: 03/07/18 Time of Encounter: 02:30 Internal Medicine - H&P: HPI Chief complaint: alcohol withdrawl Admitted From: Home Plans for Post Hospital Care: Home History of present illness: Mr. Adams is a 47 year old male with a past medical history of hypertension and diabetes who presented to the ED for alcohol withdrawal and suicidal ideation. Patient states that last night at 2 AM he decided to quit alcohol and at 7 AM this morning did drink a tall boy as he was withdrawing. He typically drinks about 12-1712 ounces. He had an episode today where he woke up and did not know where he was at between 2:30 and 4:30 PM. Patient stated that he did have urinary incontinence during this episode. He does admit to depression and SI but has not made a plan. He is concerned that if he was left alone with his thoughts for too long he would start to dwell on those thoughts. He admits to associated sweating, fidgeting, irritability, diarrhea. Upon arrival to the ED, patient was tachycardic and hypertensive of which both these normalize throughout his ED admission. Labs showed a potassium of 3.0, mildly elevated AST and ALTs, urine tox screen is positive for opioids, Tylenol , aspirin, her. She admits, benzodiazepines, cocaine, marijuana and an alcohol level of 18. In the ED, patient was given 4 mg of Ativan, potassium chloride 40meq, and thiamine. Patient was admitted to the stepdown unit for alcohol withdrawal and suicidal ideation. Past Med Surg Social Fam HX - Past Medical History Source: patient Medical history: diabetes, hypertension Additional medical history: Cellulitis Psychiatric history: anxiety, depression - Past Surgical History Surgical History: no surgical history Additional surgical history: n/a - Social History Smoking Status: Current every day smoker Smokeless Tobacco Status: No Alcohol use: heavy, recent Drug use: opiates, marijuana, prescription drug abuse - Family History Father Living Status: Hx Family Cardiac Disorders: Yes ([place] in 50s) Hx Family Genitourinary Disorders: Yes (alcholic ) Mother Living Status: Hx Family Cardiac Disorders: Yes (NE in 50s) Internal Medicine - H&P: Meds Amlodipine Besylate 10 mg PO DAILY #30 tablet 01/15/18 [Rx] Gabapentin [Neurontin] 600 mg PO QID 01/15/18 [History] Lisinopril [Zestril] 40 mg PO DAILY #30 tablet 01/15/18 [Rx] metFORMIN [Glucophage] 500 mg PO BIDWM #60 tablet 01/15/18 [Rx] Acetaminophen [Tylenol] 650 mg PO Q6HR PRN tablet 01/30/18 [Rx] Aspirin Enteric Coated [Aspirin EC] 81 mg PO DAILY tablet. 01/30/18 [Rx] Atorvastatin [Lipitor] 20 mg PO HS tablet 01/30/18 [Rx] Folic Acid 1 mg PO DAILY tablet 01/30/18 [Rx] Thiamine (B-1) [Vitamin B-1] 100 mg PO DAILY tablet 01/30/18 [Rx] cloNIDine HCl [CloNIDine HCl] 0.1 mg PO BID tablet 01/30/18 [Rx] hydroCHLOROthiazide [Hydrochlorothiazide] 25 mg PO DAILY tablet 01/30/18 [Rx] 3 Allergy/AdvReac Type Severity Reaction Status Date / Time Amoxicillin Allergy Hives Verified 03/06/18 22:00 Penicillins Allergy Hives Verified 03/06/18 22:00 quetiapine [From Seroquel] Allergy Hives Verified 03/06/18 22:00 chlordiazepoxide AdvReac Gastrointestinal Verified 03/06/18 22:00 [From Librium] Upset All Systems PM: A 10-system review of systems was performed and is negative for pertinent findings except as documented above in the HPI. - Constitutional Vitals: Temp Pulse Resp BP Pulse Ox 98.2 F 96 18 128/80 96 03/06/18 22:00 03/07/18 00:46 03/07/18 00:46 03/07/18 00:46 03/07/18 00:46 Exam: Constitutional: Alert, restless, fidgity and shaky, Head: eyes blood shot bilaterally, Normocephalic, atraumatic Heart: Normal, regular rate and rhythm, no murmurs Lungs: rhonchi bilaterally Abdomen: obese, Soft, nondistended, nontender, bowel sounds hyperactive, no guarding or rigidity. Extremities: + 1 pitting edema, No clubbing, radial pulse +2/4, capillary refill <2sec. Skin: Skin warm and dry, no lesions, no rashes, no jaundice Neurologic: Cranial nerves II through XII grossly intact, strength 5/5 in all extremities Psych: Cooperative with exam, good eye contact, cognitive function intact, speech clear, thought process logical, and goal directed Internal Med - H&P Results - Labs CBC & Chem 7: 03/06/18 22:37 03/06/18 22:37 - Assessment and plan (1) Alcohol withdrawal Current Visit: No Status: Acute Assessment and plan: Last drink at 7AM on 03/07/18, most likely already had a seizure this afternoon based off of history. Head CT was negative. Plan: - [facility] protocol - telemetry -seizure precautions - light off to help keep less agitated - monitor glucose ACHS Qualifiers: Complication of substance-induced condition: uncomplicated Qualified Code(s ): F10.230 - Alcohol dependence with withdrawal, uncomplicated (2) Polysubstance abuse Current Visit: No Status: Chronic Assessment and plan: positive for opioids, barbiturates, cocaine, and marijuana. Continue to watch for withdrawal symptoms and treat appropriately. (3) Suicidal ideation Current Visit: No Status: Acute Assessment and plan: Patient does not have a plan but admits to SI. STATISTICS TEACHER sitter present. Psychiatry consulted. (4) Hypokalemia Current Visit: No Status: Resolved Assessment and plan: Potassium=3.0. Patient given KCl 80meq. Will recheck in the AM (5) Diabetes mellitus Current Visit: No Status: Chronic Assessment and plan: Hx of diabetes in record but not on medication due to this and alcohol withdrawal will monitor and treat. Plan: - low sliding scale - Accu checks TIDAC and HS - Qualifiers: Diabetes mellitus type: type 2 Diabetes mellitus nursing home insulin use: without terminal computer operator use Diabetes mellitus complication status: with hyperglycemia Qualified Code(s): E11.65 - Type 2 diabetes mellitus with hyperglycemia (6) DVT prophylaxis Current Visit: Yes Status: Acute Assessment and plan: Heparin SQ - Time Spent With Patient Total time spent is greater than 50% in coordination of care (as documented) at patient's floor/unit and/or counseling patient:
[2018-03-07] MEDS ORDERED: *HR* Promethazine 25 MG/ML VIAL IVP PRN (02:59)
[2018-03-07] MEDS: *HR* LORazepam 2 MG/ML VIAL IVP PRN ×5 (03:16→22:55)
[2018-03-07] MEDS ORDERED: *HR* Dextrose 50 % in Water (Syg) 50 ML SYRINGE IVP PRN (04:21)
[2018-03-07] MEDS ORDERED: D5% in Water 1,000 ML IVC PRN (04:21)
[2018-03-07] MEDS ORDERED: Dextrose Gel 15 GM/37.5 ML TUBE PO PRN ×2 (04:21)
[2018-03-07] MEDS ORDERED: Ipratropium/Albuterol Neb 3 ML IH PRN (04:22)
[2018-03-07] MEDS ORDERED: Ondansetron 4 MG/2 ML VIAL IVP PRN (04:36)
[2018-03-07] MEDS: *HR* Heparin 5,000 UNIT/ML VIAL SQ SCH ×2 (05:39→17:52)
[2018-03-07 06:01] LABS: Hematocrit 41.2 % (37.5-50.1); Immature Granulocytes % 0.2 % (0-4); Lymphocytes % 29.4 %; Mean Corpuscular Hemoglobin 30.4 pg (28.0-33.3); Mean Corpuscular Volume 89.6 fL (83.0-100.0); Mean Platelet Volume 9.8 fL (9.4-12.4); Platelet Count 226 K/mcL (140-400); Red Cell Distribution Width 13.6 % (11.5-14.5)
[2018-03-07 06:02] LABS: Basophils # 0.1 K/mcL (0.0-0.2); Basophils % 0.8 %; Eosinophils # 0.3 K/mcL (0.0-0.6); Eosinophils % 3.2 %; Lymphocytes # 2.7 K/mcL (0.6-4.6); Monocytes # 0.9 K/mcL (0.0-1.3); Monocytes % 9.4 %; Neutrophils # 5.2 K/mcL (1.6-8.9)
[2018-03-07 06:21] LABS: BUN/Creatinine Ratio 21 (6-26); Blood Urea Nitrogen 19 mg/dL (6-20); Calcium 9.1 mg/dL (8.6-10.3); Carbon Dioxide 23 mEq/L (23-29); Chloride 106 mEq/L (98-107); Glucose 115 mg/dL (70-105); Magnesium 1.8 mg/dL (1.6-2.6); Osmolality,Calculated 287 (280-300); Phosphorous 3.8 mg/dL (2.7-4.5); Potassium 3.6 mEq/L (3.5-5.1); Sodium 137 mEq/L (136-145); eGFR For African Americans > 60 (> 60); eGFR For Non-African Americans > 60 (> 60)
[2018-03-07] MEDS: Multivit/Ca/Min/Fe/FA 1 TAB TABLET PO SCH (07:56)
[2018-03-07] MEDS: Insulin LISPRO 300 UNITS/3 ML VIAL SQ SCH ×4 (07:56→20:33)
--- NOTE | 2018-03-07 11:52 | Consult Note ---
Date of Encounter: 03/07/18 Time of Encounter: 11:45 Assessment & Recommendation (1) Alcohol withdrawal Current visit: Yes Status: Acute Assessment & Recommendation: Client denies SI at this time. Admits he is depressed. Willing to take an antidepressant but aware it probably will not be effective until alcohol withdrawal has passed. Can start something benign like Zoloft 50mg daily if he is interested. Doubt he needs a sitter. Does not meet criteria for inpatient psych but needs exterminator management for addiction issues. Client is willing to go to a rehab and needs something residential. Recommend a social work consult to look into placement options. Qualifiers: Complication of substance-induced condition: uncomplicated Qualified Code(s ): F10.230 - Alcohol dependence with withdrawal, uncomplicated History of Present Illness Requesting Physician: Deisi Alexander MD Reason for consult: SI History of present illness: Mr. Adams is a 47 year old male who was admitted medically secondary to acute alcohol withdrawal. Endorsed SI at time of admission. On eval today client denies SI. States he struggles with depression and has SI at times but never any intent or plan. No prior suicide attempts. States he would never do that to his children. Heavy drinker and alcohol intoxication/withdrawal tends to fuel his depression. Has not been treated for depression in years. Willing to take an antidepressant but understands medications are not likely to be effective in context of heavy alcohol abuse. Tox screen positive for multiple substances. Client admits to recreational drug use but states alcohol is always his drug of choice. Began drinking in his twenties. Currently able to drink two 24 packs at a time. Has seized multiple times during past withdrawal periods. Suspected of seizure activity during current withdrawal period. At this time he is tremulous but otherwise tolerating symptoms. Wants rehab but fears he has burned through all of his rehab days. Doesn't think local places will take him. Willing to travel out of area for treatment. Recommend social work consult to explore options. At this time he is future oriented and wants treatment for his addiction. Denies SI/HI. No evidence of a thought disorder. CC: Deisi Alexander MD Past Med Surg Social Fam HX - Past Medical History Medical history: diabetes, hypertension - Past Psychiatric History Psychiatric history: Reports: depression Family psychiatric history: Unknown Family History of Suicide: Unknown - Past Surgical History Surgical History: no surgical history - Social History Smoking Status: Current every day smoker Smokeless Tobacco Status: No Alcohol use: heavy, recent Drug use: opiates, marijuana, prescription drug abuse - Family History Father Living Status: Hx Family Cardiac Disorders: Yes ([place] in 50s) Hx Family Genitourinary Disorders: Yes (alcholic ) Mother Living Status: Hx Family Cardiac Disorders: Yes (MT in 50s) Medications & Allergies Amlodipine Besylate 10 mg PO DAILY #30 tablet 01/15/18 [Rx] Gabapentin [Neurontin] 600 mg PO QID 01/15/18 [History] Lisinopril [Zestril] 40 mg PO DAILY #30 tablet 01/15/18 [Rx] metFORMIN [Glucophage] 500 mg PO BIDWM #60 tablet 01/15/18 [Rx] Acetaminophen [Tylenol] 650 mg PO Q6HR PRN tablet 01/30/18 [Rx] Aspirin Enteric Coated [Aspirin EC] 81 mg PO DAILY tablet. 01/30/18 [Rx] Atorvastatin [Lipitor] 20 mg PO HS tablet 01/30/18 [Rx] Folic Acid 1 mg PO DAILY tablet 01/30/18 [Rx] Thiamine (B-1) [Vitamin B-1] 100 mg PO DAILY tablet 01/30/18 [Rx] cloNIDine HCl [CloNIDine HCl] 0.1 mg PO BID tablet 01/30/18 [Rx] hydroCHLOROthiazide [Hydrochlorothiazide] 25 mg PO DAILY tablet 01/30/18 [Rx] 3 Allergy/AdvReac Type Severity Reaction Status Date / Time Amoxicillin Allergy Hives Verified 03/06/18 22:00 Penicillins Allergy Hives Verified 03/06/18 22:00 quetiapine [From Seroquel] Allergy Hives Verified 03/06/18 22:00 chlordiazepoxide AdvReac Gastrointestinal Verified 03/06/18 22:00 [From Librium] Upset Review of Systems Constitutional: Reports: weakness Eyes: Denies: eye pain, vision change Ears, Nose, Throat: Denies: ear pain, throat pain, dental pain, hearing loss, congestion Cardiovascular: Denies: chest pain, palpitations, dyspnea on exertion Respiratory: Denies: cough, dyspnea, wheezes Gastrointestinal: Denies: abdominal pain, nausea, vomiting, diarrhea, constipation Genitourinary male: Denies: urgency, dysuria, frequency, genital lesions Musculoskeletal: Reports: back pain Integumentary: Denies: rash, lesions, pruritus Neurological: Reports: other Endocrine: Denies: fatigue, heat or cold intolerance Hematologic/Lymphatic: Denies: easy bruising, lymphadenopathy Allergic/Immunologic: Denies: urticaria, itchy eyes Psychiatry Exam - Constitutional Vitals: Temp Pulse Resp BP Pulse Ox 98.3 F 96 17 152/81 96 03/07/18 11:00 03/07/18 11:00 03/07/18 11:00 03/07/18 11:33 03/07/18 11:00 General appearance: obese - Musculoskeletal Gait: other Station: shaky Strength & Tone: normal for patient - Psychiatric Patient Orientation: Yes Person, Yes Time, Yes Place Level of alertness: Alert Behavior: calm, cooperative Psychomotor activity: Increased Eye Contact: Maintains Eye Contact Mood Description: Depressed Affect description: congruent with mood, full range Speech Volume: Normal Speech pattern: normal rate, normal rhythm, normal tone, fluent, spontaneous Language & Vocabulary: consistent with education Thought Process: Linear, Goal Oriented Thought Content: No Suicidal ideation, No Homicidal ideation, No Overt delusions Perceptual Disturbances: No Auditory hallucinations, No Visual hallucinations Attention Span Ability: Capable of Focused Attention Memory Description: Grossly Intact Patient Reliability: Reliable Historian Fund of knowledge: Yes abstraction ability, Yes aware of current events Intelligence Estimate: Average Judgment: Limited Insight: Partial Results - Labs Labs: Laboratory Last Values WBC 9.1 K/mcL (4.3-11.1) 03/07/18 05:43 RBC 4.60 M/mcL (4.19-5.50) 03/07/18 05:43 Hgb 14.0 g/dL (12.9-16.9) 03/07/18 05:43 Hct 41.2 % (37.5-50.1) 03/07/18 05:43 MCV 89.6 fL (83.0-100.0) 03/07/18 05:43 MCH 30.4 pg (28.0-33.3) 03/07/18 05:43 MCHC 34.0 g/dL (31.6-35.5) 03/07/18 05:43 RDW 13.6 % (11.5-14.5) 03/07/18 05:43 Plt Count 226 K/mcL (140-400) 03/07/18 05:43 MPV 9.8 fL (9.4-12.4) 03/07/18 05:43 Immature Gran % 0.2 % (0-4) 03/07/18 05:43 Seg Neutrophils % 57.0 % 03/07/18 05:43 Lymphocytes % 29.4 % 03/07/18 05:43 Monocytes % 9.4 % 03/07/18 05:43 Eosinophils % 3.2 % 03/07/18 05:43 Basophils % 0.8 % 03/07/18 05:43 Neutrophils # 5.2 K/mcL (1.6-8.9) 03/07/18 05:43 Lymphocytes # 2.7 K/mcL (0.6-4.6) 03/07/18 05:43 Monocytes # 0.9 K/mcL (0.0-1.3) 03/07/18 05:43 Eosinophils # 0.3 K/mcL (0.0-0.6) 03/07/18 05:43 Basophils # 0.1 K/mcL (0.0-0.2) 03/07/18 05:43 Immature Plt Fraction 1.9 % (1.1-6.1) 03/06/18 22:37 Sodium 137 mEq/L (136-145) 03/07/18 05:43 Potassium 3.6 mEq/L (3.5-5.1) 03/07/18 05:43 Chloride 106 mEq/L (98-107) 03/07/18 05:43 Carbon Dioxide 23 mEq/L (23-29) 03/07/18 05:43 BUN 19 mg/dL (6-20) 03/07/18 05:43 Creatinine 0.91 mg/dL (0.70-1.30) 03/07/18 05:43 Est GFR ( Amer) > 60 (> 60) 03/07/18 05:43 Est GFR (Non-Af Amer) > 60 (> 60) 03/07/18 05:43 BUN/Creatinine Ratio 21 (6-26) 03/07/18 05:43 Glucose 115 mg/dL (70-105) H 03/07/18 05:43 POC Glucose 97 mg/dL (70-99) 03/07/18 03:04 Calculated Osmolality 287 (280-300) 03/07/18 05:43 Calcium 9.1 mg/dL (8.6-10.3) 03/07/18 05:43 Phosphorus 3.8 mg/dL (2.7-4.5) 03/07/18 05:43 Magnesium 1.8 mg/dL (1.6-2.6) 03/07/18 05:43 Total Bilirubin 0.5 mg/dL (0.3-1.0) 03/06/18 22:37 Direct Bilirubin 0.2 mg/dL (0.0-0.2) 03/06/18 22:37 Indirect Bilirubin 0.3 mg/dL (0.0-1.2) 03/06/18 22:37 AST 44 Units/L (13-39) H 03/06/18 22:37 ALT 58 Units/L (7-52) H 03/06/18 22:37 Alkaline Phosphatase 74 Units/L (34-104) 03/06/18 22:37 Serum Total Protein 8.0 g/dL (6.4-8.9) 03/06/18 22:37 Albumin 4.7 g/dL (3.5-5.7) 03/06/18 22:37 Globulin 3.3 g/dL (2.4-3.5) 03/06/18 22:37 Albumin/Globulin Ratio 1.4 (1.1-2.2) 03/06/18 22:37 Urine Color Yellow (Yellow) 03/06/18 22:15 Urine Clarity Clear (Clear) 03/06/18 22:15 Urine pH 5.5 pH Units (5.0-8.0) 03/06/18 22:15 Ur Specific [place] > 1.030 (1.010-1.025) H 03/06/18 22:15 Urine Protein 30 mg/dL (Neg-Trace) H 03/06/18 22:15 Urine Glucose (UA) Normal mg/dL (Normal) 03/06/18 22:15 Urine Ketones Negative mg/dL (Negative) 03/06/18 22:15 Urine Blood Negative (Negative) 03/06/18 22:15 Urine Nitrite Negative (Negative) 03/06/18 22:15 Urine Bilirubin Negative (Negative) 03/06/18 22:15 Urine Urobilinogen Normal mg/dL (Normal) 03/06/18 22:15 Ur Leukocyte Esterase Negative (Negative) 03/06/18 22:15 Urine Microscopic RBC 0-3 per hpf (0-3) 03/06/18 22:15 Urine Microscopic WBC 0-3 per hpf (0-3) 03/06/18 22:15 Ur Squamous Epith Cells Many per lpf (None-Few) H 03/06/18 22:15 Urine Bacteria None Seen per hpf (None-Few) 03/06/18 22:15 Salicylates < 2.5 mg/dL (15.0-30.0) L 03/06/18 22:37 Urine Opiates Screen Positive ng/mL (Ebuizw=761) H 03/06/18 22:15 Acetaminophen < 10 mcg/mL (10-20) L 03/06/18 22:37 Ur Barbiturates Screen Positive ng/mL (Chlexq=959) H 03/06/18 22:15 Ur Phencyclidine Scrn Negative ng/mL (Cutoff=25) 03/06/18 22:15 Ur Amphetamines Screen Negative ng/mL (Guodej=8375) 03/06/18 22:15 U Benzodiazepines Scrn Positive ng/mL (Lyetzu=103) H 03/06/18 22:15 Urine Cocaine Screen Positive ng/mL (Cutoff= 300) H 03/06/18 22:15 U Marijuana (THC) Screen Positive ng/mL (Cutoff = 50) H 03/06/18 22:15 Ur Drug Screen Interp See Below 03/06/18 22:15 Ethyl Alcohol 18 mg/dL (Less than 10) H 03/06/18 22:37 Consult Discharge Plan - Plan Referrals: NONE,PCP [Primary Care Provider] -
[2018-03-07] MEDS: Nicotine 21 MG PATCH.TD24 TD SCH (13:53)
--- NOTE | 2018-03-07 14:57 | Event Note ---
Date of Encounter: 03/07/18 Time of Encounter: 12:45 47 year old male with h/o- chronic alcoholism, HTN, DM, polysubstance abuse, admitted with alcohol withdrawal due to deciding to quit alcohol; Seen and examined; reports tremors, anxiety, headache, nausea, diarrhea, weakness; Chest -S1, S2 heard; lungs with decreased breath sounds B/L bases; Alcohol withdrawal- continue CIWA protocol; requests for more Ativan than actual dosing; will increase to 3mg Ativan PRN; supportive care; seizure and fall precautions; Thiamine and FA supplements; PRN IV Hydralazine for BP control ; PPI; protective services case worker consulted as patient is interested in alcohol rehab; monitor electrolytes closely; Suicidal ideation- currently denies SI/HI; Psychiatry consult appreciated; will d/c 1:1 sitter; will start low dose Zoloft when alcohol withdrawal improves;
[2018-03-07] MEDS: Thiamine (B-1) 100 MG, Folic Acid 1 MG, MVI, adult with vitamin K 10 ML in 0.9 % Sodi... IVPB SCH (17:50)
[2018-03-07] MEDS ORDERED: cloNIDine HCl 0.1 MG TABLET PO PRN (18:45)
[2018-03-08] MEDS: *HR* Heparin 5,000 UNIT/ML VIAL SQ SCH ×2 (05:07→17:20)
[2018-03-08] MEDS: *HR* LORazepam 2 MG/ML VIAL IVP PRN ×5 (05:07→21:27)
[2018-03-08] MEDS: Nicotine 21 MG PATCH.TD24 TD SCH (07:21)
[2018-03-08] MEDS: Multivit/Ca/Min/Fe/FA 1 TAB TABLET PO SCH (07:21)
[2018-03-08] MEDS: Insulin LISPRO 300 UNITS/3 ML VIAL SQ SCH ×4 (07:22→21:19)
[2018-03-08 07:46] LABS: Basophils # 0.1 K/mcL (0.0-0.2); Basophils % 0.6 %; Eosinophils # 0.2 K/mcL (0.0-0.6); Eosinophils % 2.4 %; Hematocrit 42.1 % (37.5-50.1); Hemoglobin 14.2 g/dL (12.9-16.9); Immature Granulocytes % 0.4 % (0-4); Lymphocytes # 2.1 K/mcL (0.6-4.6); Lymphocytes % 26.4 %; Mean Corpuscular HGB Conc 33.7 g/dL (31.6-35.5); Mean Corpuscular Hemoglobin 30.3 pg (28.0-33.3); Mean Corpuscular Volume 89.8 fL (83.0-100.0); Mean Platelet Volume 9.9 fL (9.4-12.4); Monocytes # 0.7 K/mcL (0.0-1.3); Neutrophils # 4.8 K/mcL (1.6-8.9); Platelet Count 212 K/mcL (140-400); Red Blood Count 4.69 M/mcL (4.19-5.50); Red Cell Distribution Width 13.5 % (11.5-14.5); Segmented Neutrophils % 61.2 %
[2018-03-08 08:07] LABS: BUN/Creatinine Ratio 18 (6-26); Blood Urea Nitrogen 13 mg/dL (6-20); Calcium 8.8 mg/dL (8.6-10.3); Carbon Dioxide 24 mEq/L (23-29); Chloride 108 mEq/L (98-107); Glucose 144 mg/dL (70-105); Magnesium 1.8 mg/dL (1.6-2.6); Osmolality,Calculated 289 (280-300); Potassium 3.7 mEq/L (3.5-5.1); Sodium 138 mEq/L (136-145); eGFR For African Americans > 60 (> 60); eGFR For Non-African Americans > 60 (> 60)
[2018-03-08 09:30] LABS: Estimated Average Glucose 151 mg/dl; Hemoglobin A1C 6.9 %
--- NOTE | 2018-03-08 14:47 | Internal Med Progress Note ---
Date of Encounter: 03/08/18 Time of Encounter: 08:50 - Assessment and plan (1) Alcohol withdrawal Current Visit: Yes Status: Acute Assessment and plan: improving; labs normal; continue CIWA protocol with PRN IV Ativan and supportive care, IV vitamins; diet as tolerated; PPI; guest services representative consult; Qualifiers: Complication of substance-induced condition: uncomplicated Qualified Code(s ): F10.230 - Alcohol dependence with withdrawal, uncomplicated (2) Polysubstance abuse Current Visit: Yes Status: Chronic Assessment and plan: Urine toxicology positive for barbiturates, BDZ, opiates, marijuana, cocaine; social worker clinical consult; (3) Diabetes mellitus Current Visit: Yes Status: Chronic Assessment and plan: Blood sugars well-controlled; continue Accucheck blood glucose monitoring with SSI as needed; diabetic diet; Qualifiers: Diabetes mellitus type: type 2 Diabetes mellitus termination clerk insulin use: without termination clerk use Diabetes mellitus complication status: with unspecified complications Qualified Code(s): E11.8 - Type 2 diabetes mellitus with unspecified complications (4) Suicidal ideation Current Visit: Yes Status: Ruled-out Assessment and plan: denies SI/HI now; evaluated by Psychiatry, no further recommendations, inpatient Psychiatry not warranted; start low dose Zoloft per Psychiatry; (5) Hypokalemia Current Visit: Yes Status: Resolved (6) DVT prophylaxis Current Visit: Yes Status: Acute (7) Essential hypertension Current Visit: Yes Status: Chronic Assessment and plan: Uncontrolled BP, combination of alcohol withdrawal and baseline untreated HTN; started on PO Metoprolol; using Clonidine and Hydralazine PRN; - Time Spent With Patient Total time spent is greater than 50% in coordination of care (as documented) at patient's floor/unit and/or counseling patient: - Subjective Interval history: Noted to be sound asleep upon entering the room; however when asked, he continues to report anxiety and requests Ativan; continues to have diarrhea; no nausea, vomiting, chest pain; - Constitutional Vitals: Temp Pulse Resp BP Pulse Ox 98.3 F 72 18 159/91 96 03/08/18 11:37 03/08/18 11:37 03/08/18 11:37 03/08/18 13:06 03/08/18 11:37 General appearance: Present: A&O X 3, morbidly obese, answers questions appropriately - Respiratory Respiratory exam: Present: CTAB. Absent: accessory muscle use, rales, rhonchi, wheezes - Cardiovascular Cardiovascular exam: Present: RRR, +S1, +S2. Absent: diastolic murmur, gallop, rubs, systolic murmur - GI/Abdominal GI/Abdominal exam: Present: normal bowel sounds, soft, no peritoneal signs. Absent: distended, tenderness Internal Medicine: Result - Labs CBC & Chem 7: 03/08/18 07:33 03/08/18 07:33 Labs: Short CBC 03/08/18 Range/Units 07:33 WBC 7.9 (4.3-11.1) K/mcL Hgb 14.2 (12.9-16.9) g/dL Hct 42.1 (37.5-50.1) % Plt Count 212 (140-400) K/mcL Neutrophils # 4.8 (1.6-8.9) K/mcL BMP 03/08/18 07:33 Sodium 138 Potassium 3.7 Chloride 108 H Carbon Dioxide 24 BUN 13 Creatinine 0.74 Glucose 144 H Calcium 8.8 Consult Discharge Plan - Plan Referrals: NONE,PCP [Primary Care Provider] -
[2018-03-08] MEDS: Thiamine (B-1) 100 MG, Folic Acid 1 MG, MVI, adult with vitamin K 10 ML in 0.9 % Sodi... IVPB SCH (17:41)
[2018-03-09] MEDS: *HR* LORazepam 2 MG/ML VIAL IVP PRN ×5 (01:20→20:31)
[2018-03-09] MEDS: *HR* Heparin 5,000 UNIT/ML VIAL SQ SCH ×2 (05:36→19:02)
[2018-03-09] MEDS: Insulin LISPRO 300 UNITS/3 ML VIAL SQ SCH ×4 (08:23→20:30)
[2018-03-09] MEDS: Multivit/Ca/Min/Fe/FA 1 TAB TABLET PO SCH (08:34)
[2018-03-09] MEDS: Nicotine 21 MG PATCH.TD24 TD SCH (08:34)
[2018-03-09] MEDS ORDERED: amLODIPine 5 MG TABLET PO SCH (15:30)
[2018-03-09] MEDS ORDERED: Lisinopril 20 MG TABLET PO SCH (15:30)
--- NOTE | 2018-03-09 16:48 | Internal Med Progress Note ---
Date of Encounter: 03/09/18 Time of Encounter: 10:15 - Assessment and plan (1) Alcohol withdrawal Current Visit: Yes Status: Acute Assessment and plan: improving; labs normal; continue CIWA protocol with PRN IV Ativan and supportive care, IV vitamins; diet as tolerated; PPI; environmental services supervisor consulted, placed on waiting list at substance abuse 90-day program at [facility]; Qualifiers: Complication of substance-induced condition: uncomplicated Qualified Code(s ): F10.230 - Alcohol dependence with withdrawal, uncomplicated (2) Polysubstance abuse Current Visit: Yes Status: Chronic Assessment and plan: Urine toxicology positive for barbiturates, BDZ, opiates, marijuana, cocaine; forensic social worker consulted, plan as above; (3) Diabetes mellitus Current Visit: Yes Status: Chronic Assessment and plan: Blood sugars well-controlled; continue Accucheck blood glucose monitoring with SSI as needed; diabetic diet; HbA1C 6.9%; Qualifiers: Diabetes mellitus type: type 2 Diabetes mellitus intermodal customer service insulin use: without intermodal customer service use Diabetes mellitus complication status: with unspecified complications Qualified Code(s): E11.8 - Type 2 diabetes mellitus with unspecified complications (4) Suicidal ideation Current Visit: Yes Status: Ruled-out (5) Hypokalemia Current Visit: Yes Status: Resolved (6) DVT prophylaxis Current Visit: Yes Status: Acute (7) Essential hypertension Current Visit: Yes Status: Chronic Assessment and plan: Uncontrolled BP, combination of alcohol withdrawal and baseline untreated HTN; discussed with pharmacy, patient is supposed to be on amlodipine, lisinopril and clonidine at home, he is noncompliant. Will resume home medications and start metoprolol at this time. will use IV Hydralazine PRN; - Time Spent With Patient Total time spent is greater than 50% in coordination of care (as documented) at patient's floor/unit and/or counseling patient: - Subjective Interval history: Noted to be ambulating in the room. No chest pain, shortness of breath, palpitations. Tolerates oral diet. Continues to report intermittent anxiety and ongoing diarrhea, reportedly not controlled with loperamide. - Constitutional Vitals: Temp Pulse Resp BP Pulse Ox 98.5 F 87 20 148/86 98 03/09/18 16:07 03/09/18 16:03/09/18 16:03/09/18 16:07 03/09/18 16:07 General appearance: Present: A&O X 3, morbidly obese, answers questions appropriately - Respiratory Respiratory exam: Present: CTAB. Absent: accessory muscle use, rales, rhonchi, wheezes - Cardiovascular Cardiovascular exam: Present: RRR, +S1, +S2. Absent: diastolic murmur, gallop, rubs, systolic murmur - GI/Abdominal GI/Abdominal exam: Present: normal bowel sounds, soft (obese), no peritoneal signs. Absent: distended, tenderness - Extremities Exam Extremities exam: Present: full ROM, warm, radial pulses palpable and symmetrical. Absent: calf tenderness, cyanotic, pedal edema - Neurological Exam Neurological exam: Present: CN II-XII intact, oriented X3, no focal deficits. Absent: pronater drift, facial droop, speech deficit Internal Medicine: Result - Labs CBC & Chem 7: 03/08/18 07:33 03/08/18 07:33 Consult Discharge Plan - Plan Referrals: NONE,PCP [Primary Care Provider] -
--- NOTE | 2018-03-09 17:51 | Electrocardiograph Report ---
[address] [address] Test Date: 2018-03-06 Pat Name: Chinedu Adams Department: 103 Room: 2N14 Gender: M Copier Technician: TMR : 1970 Requested By: Yovany Spencer Order Number: [id number] Reading MD: Syed Pepe Measurements Intervals [place] Rate: 93 P: 54 IN: 163 QRS: 85 QRSD: 106 T: 32 QT: 366 QTc: 417 Interpretive Statements SINUS RHYTHM Poor R wave progression BASELINE ARTIFACT Electronically Signed On 03-09-2018 17:49:55 EDT by Syed Pepe
[2018-03-09] MEDS: Thiamine (B-1) 100 MG, Folic Acid 1 MG, MVI, adult with vitamin K 10 ML in 0.9 % Sodi... IVPB SCH (19:14)
[2018-03-09 23:46] VITALS: BP 160/81
[2018-03-10] MEDS: *HR* LORazepam 2 MG/ML VIAL IVP PRN (00:45)
[2018-03-10] MEDS ORDERED: Vitamin B Complex/Vit C/Vit E 1 EACH TABLET PO SCH (09:00)
[2018-03-10] MEDS ORDERED: Thiamine (B-1) 100 MG TABLET PO SCH (09:00)
[2018-03-10] MEDS ORDERED: Folic Acid 1 MG TABLET PO SCH (09:00)
--- NOTE | 2018-03-20 10:11 | Discharge Summary ---
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 Adams is a 47 year old male with the above medical problems, admitted with alcohol withdrawal, per previous progress notes. Per chart review, patient left AMA on 03/10/18, when I was off service. - Time Spent with Patient Total time spent providing and/or coordinating discharge services: - Discharge Medications Home Medications: No Known Home Drugs 03/16/18 [History] Allergies/Adverse Reactions: 3 Allergy/AdvReac Type Severity Reaction Status Date / Time Amoxicillin Allergy Hives Verified 03/08/18 09:27 Penicillins Allergy Hives Verified 03/08/18 09:27 quetiapine [From Seroquel] Allergy Hives Verified 03/08/18 09:27 chlordiazepoxide AdvReac Gastrointestinal Verified 03/08/18 09:27 [From Librium] Upset Date of admission: 03/07/18 01:17 Primary care physician: PCP NONE Consults: 03/07/18 02:59 Consult to Customer Success Manager [CONS] Routine Reason for SW Consult: alcoholism and drug abuse 03/07/18 03:09 Consult to Psychiatry [CONS] Routine Consulting Provider: Psychiatry Dickerson Reason consult: Other Other reason and/or additional details: SI and depression Time Notified: 03:10 Call Completed: No Anticipated date of discharge: 03/10/18 - Constitutional Vitals: Temp Pulse Resp BP Pulse Ox 98.5 F 98 22 160/81 94 03/09/18 23:41 03/09/18 20:08 03/09/18 23:41 03/09/18 23:41 03/09/18 23:41 - Patient Status Disposition: Left Against Medical Advice Condition: Fair - Discharge Instructions Follow Up With: NONE,PCP [Primary Care Provider] -
== END 2018-03-10 01:46 | disposition left against medical advice (07) | DRG 894 ==
LOC: EMEROO 21:57 → 2NNU 03-07 01:17 → SUATTDRO 03-07 01:17 → 2NNU 03-07 03:12
PROVIDERS: ADMIT Internal Medicine Nephrology; ATTEND Internal Medicine

== ENCOUNTER 2018-03-15 16:37 | Inpatient (IN) ==
[2018-03-15] MEDS ORDERED: Thiamine (B-1) 100 MG in D5% in Water 50 ML IVPB ONE (16:57)
[2018-03-15] MEDS ORDERED: *HR* LORazepam 2 MG/ML VIAL IVP ONE ×2 (16:57→17:15)
[2018-03-15] MEDS ORDERED: Isovue-370 500 ML INFUS..BTL IV ONE (17:12)
[2018-03-15 17:30] LABS: Basophils # 0.1 K/mcL (0.0-0.2); Basophils % 0.4 %; Eosinophils # 0.1 K/mcL (0.0-0.6); Eosinophils % 0.5 %; Hematocrit 42.2 % (37.5-50.1); Hemoglobin 14.7 g/dL (12.9-16.9); Immature Granulocytes % 0.3 % (0-4); Lymphocytes # 1.8 K/mcL (0.6-4.6); Lymphocytes % 13.9 %; Mean Corpuscular HGB Conc 34.8 g/dL (31.6-35.5); Mean Corpuscular Hemoglobin 30.6 pg (28.0-33.3); Mean Corpuscular Volume 87.9 fL (83.0-100.0); Monocytes % 7.3 %; Neutrophils # 10.1 K/mcL (1.6-8.9); Platelet Count 202 K/mcL (140-400); Red Cell Distribution Width 13.5 % (11.5-14.5); Segmented Neutrophils % 77.6 %
--- NOTE | 2018-03-15 17:36 | Emergency Department Note ---
Disposition Clinical Impression: Abscess Alcohol withdrawal Qualifiers: Complication of substance-induced condition: uncomplicated Qualified Code(s): F10.230 - Alcohol dependence with withdrawal, uncomplicated Disposition: Still a Patient Referrals: NONE,PCP [Primary Care Provider] - Forms: ED Satisfaction Letter General Adult HPI - General Chief complaint: ED Skin/Abscess/Foreign Body Stated complaint: Skin problem shaking Time Seen by Provider: 03/15/18 16:47 Source: patient Limitations: no limitations Nursing Notes Reviewed: Yes Vital Signs Reviewed: Yes - History of Present Illness HPI Narrative: 47 year old male presents to the ED with complaints of ETOH and heorin withdrawl and staets that the last time he drank was Friday and the last time he used was . Aylin states that he has only been doing heorin in the acute phase but is a chronic drinker and he has been experinign increased suicidal thoghts without a plan and decided to come to the hospital because he has two kids and wants to get better. He states that he also has two areas on the right 1st MCP and right radial volar area that appear to be abscess and he is a diabetic and has never had abscesses before. He states that these are the areas that he has been shooting up in and has an area on the left upper axilla area but it does not hurt and appears to be bruised without drainage unlike the one on the right upper extremity. Aylin states that he has had chills and is statrting to shake and feels paranoid. NO chest or abdominal pain Pain Scale: 10 - Related Data Home Medications Medication Instructions Recorded Confirmed Gabapentin [Neurontin] 600 mg PO QID 01/15/18 03/08/18 Oxycodone HCl/Acetaminophen 1 tab PO TID PRN 03/08/18 03/08/18 [Percocet 7.5-325 mg Tablet] Previous Rx's Medication Instructions Recorded Amlodipine Besylate 10 mg PO DAILY #30 tablet 01/15/18 Lisinopril [Zestril] 40 mg PO DAILY #30 tablet 01/15/18 metFORMIN [Glucophage] 500 mg PO BIDWM #60 tablet 01/15/18 Thiamine (B-1) [Vitamin B-1] 100 mg PO DAILY tablet 01/30/18 cloNIDine HCl [CloNIDine HCl] 0.1 mg PO BID tablet 05/25/18 Allergies Allergy/AdvReac Type Severity Reaction Status Date / Time Amoxicillin Allergy Hives Verified 03/08/18 09:27 Penicillins Allergy Hives Verified 03/08/18 09:27 quetiapine [From Seroquel] Allergy Hives Verified 03/08/18 09:27 chlordiazepoxide AdvReac Gastrointestinal Verified 03/08/18 09:27 [From Librium] Upset Constitutional: Denies: fever, chills, weakness, weight change Eyes: Denies: eye pain, eye discharge, vision change ENT ED: Denies: ear pain, throat pain, dental pain, hearing loss, epistaxis, congestion, dysphagia Cardiovascular: Denies: chest pain, palpitations, dyspnea on exertion, edema, syncope Respiratory: Denies: cough, dyspnea, wheezes, hemoptysis, stridor Gastrointestinal: Denies: abdominal pain, nausea, vomiting, diarrhea, constipation, hematemesis, melena, hematochezia Genitourinary: Denies: urgency, dysuria, frequency, hematuria Musculoskeletal: Reports: as per HPI. Denies: back pain, neck pain, arthralgia , myalgia Integumentary: Reports: as per HPI. Denies: rash, abrasion, lesions Neurological: Reports: weakness. Denies: headache, numbness, paresthesias, confusion, abnormal gait, vertigo Psychiatric: Reports: anxiety, suicidal thoughts. Denies: depression, homicidal thoughts, auditory hallucinations, visual hallucinations Endocrine: Denies: fatigue Hematological/Lymphatic: Denies: easy bleeding, easy bruising Allergic/Immunologic: Denies: facial swelling, urticaria Past Medical History - Past Medical History Medical history: Reports: diabetes, hypertension Surgical history: Reports: no surgical history Psychiatric history: Reports: depression - Social History Smoking Status: Current every day smoker Smokeless Tobacco Status: No Alcohol use: Reports: heavy, recent Drug use: Reports: opiates, marijuana, prescription drug abuse Physical Exam - General Limitations: no limitations General appearance: alert, in no apparent distress, obese - Head Head exam: atraumatic, normocephalic, normal inspection - Eye Eye exam: Present: normal appearance, PERRL, EOMI - Expanded Eye Exam Pupils: Bilateral: reactive - ENT ENT exam: normal exam, normal oropharynx, mucous membranes moist - Expanded ENT Exam External ear exam: Present: normal external inspection Mouth exam: Present: normal external inspection Teeth exam: Present: normal inspection Throat exam: Present: normal inspection - Neck Neck exam: Present: normal inspection, full ROM, trachea midline - Chest Chest inspection: Present: normal inspection, symmetric chest wall rise - Respiratory Respiratory exam: Present: normal lung sounds bilaterally - Cardiovascular Cardiovascular exam: Present: normal rhythm, tachycardia, normal heart sounds - Abdominal Exam Abdominal exam: Present: soft, Non-Tender. Absent: tenderness, distention, guarding, rebound, rigidity - Extremities Exam Extremities exam: Present: normal inspection, full ROM. Absent: tenderness, pedal edema - Expanded Upper Extremity Exam Shoulder exam: Present: normal inspection, full ROM Arm exam: Present: normal inspection, full ROM Forearm/Wrist exam: Present: tenderness, swelling Hand exam: Present: normal inspection, full ROM Hand L/R back image: 1 - abscess, with circumferential swelling and pain with range of motion Vascular exam: Normal: capillary refill, radial pulse - Expanded Lower Extremity Exam Hip/Pelvis exam: Present: normal inspection, full ROM Upper leg exam: Present: normal inspection, full ROM Knee exam: Present: normal inspection, full ROM Lower leg exam: Present: normal inspection, full ROM Ankle exam: Present: normal inspection, full ROM Foot/toe exam: Present: normal inspection, full ROM Neurovascular/Tendon exam: Absent: motor deficit, sensory deficit, tendon deficit - Back Exam Back exam: Present: normal inspection, full ROM. Absent: tenderness - Neurological Exam Neurological exam: Present: alert, oriented X3 - Expanded Neurological Exam Patient oriented to: Present: person, place, time Coma Scale Eye Opening: Spontaneous Coma Scale Motor Response: Obeys Commands Coma Scale Verbal Response: Oriented Coma Scale Total: 15 - Psychiatric Psychiatric exam: Present: normal affect, normal mood - Skin Skin exam: Present: warm, dry, intact, normal color - Expanded Skin Exam 1 - abscess with erythematous changes and increased drainage Course Course Narrative: Plan is to david out sepsis and obtain CT scan of the right hand and upper extremity and then treat him with [facility] protocol for his ETOH withdrawl. He will be admitted to the medicine service pending he does not need a hand surgeon for his abscesses in his hand/arm, with pysch precautions for medical clearace. - Reevaluation(s) Reevaluation #1: signed patient out to Dr. Mauri Richards. Plan is to followup on CT scans and drain abscess if superficial and id deep and concerning for kanavals signs then he may need a a hand surgeon cnosult and possible transfer for [facility] out. Time: 18:32 Vital Signs Temperature 99 F 03/15/18 16:38 Pulse Rate 111 03/15/18 16:38 Respiratory Rate 16 03/15/18 16:38 Blood Pressure 185/123 03/15/18 16:38 O2 Sat by Pulse Oximetry 96 03/15/18 16:38 Temperature 99 F 03/15/18 16:38 Pulse Rate 111 03/15/18 16:38 Respiratory Rate 16 03/15/18 16:38 Blood Pressure 185/123 03/15/18 16:38 O2 Sat by Pulse Oximetry 96 03/15/18 16:38 Oxygen Delivery Oxygen Delivery Room Air Medical Decision Making - Medical Records Medical records reviewed: Yes I reviewed the patient's medical records. - Lab Data Lab results reviewed: Yes I reviewed the patient's lab results. Result diagrams: 03/15/18 17:20 03/15/18 17:20 Lab Results 03/15/18 03/15/18 03/15/18 Range/Units 17:20 17:20 17:20 WBC 13.0 H (4.3-11.1) K/mcL RBC 4.80 (4.19-5.50) M/mcL Hgb 14.7 (12.9-16.9) g/dL Hct 42.2 (37.5-50.1) % MCV 87.9 (83.0-100.0) fL MCH 30.6 (28.0-33.3) pg MCHC 34.8 (31.6-35.5) g/dL RDW 13.5 (11.5-14.5) % Plt Count 202 (140-400) K/mcL MPV 10.0 (9.4-12.4) fL Immature Gran % 0.3 (0-4) % Seg Neutrophils % 77.6 % Lymphocytes % 13.9 % Monocytes % 7.3 % Eosinophils % 0.5 % Basophils % 0.4 % Neutrophils # 10.1 H (1.6-8.9) K/mcL Lymphocytes # 1.8 (0.6-4.6) K/mcL Monocytes # 1.0 (0.0-1.3) K/mcL Eosinophils # 0.1 (0.0-0.6) K/mcL Basophils # 0.1 (0.0-0.2) K/mcL PT (9.4-12.1) Seconds INR APTT (26.0-36.0) Seconds Sodium 136 (136-145) mEq/L Potassium 2.9 L (3.5-5.1) mEq/L Chloride 103 (98-107) mEq/L Carbon Dioxide 23 (23-29) mEq/L BUN 13 (6-20) mg/dL Creatinine 1.06 (0.70-1.30) mg/dL Est GFR ( Amer) > 60 (> 60) Est GFR (Non-Af Amer) > 60 (> 60) BUN/Creatinine Ratio 12 (6-26) Glucose 113 H (70-105) mg/dL Calculated Osmolality 283 (280-300) Lactic Acid 0.9 (0.5-2.2) mmol/L Calcium 9.3 (8.6-10.3) mg/dL Phosphorus 2.2 L (2.7-4.5) mg/dL Magnesium 1.6 (1.6-2.6) mg/dL Total Bilirubin 0.8 (0.3-1.0) mg/dL Direct Bilirubin 0.2 (0.0-0.2) mg/dL Indirect Bilirubin 0.6 (0.0-1.2) mg/dL AST 55 H (13-39) Units/L ALT 67 H (7-52) Units/L Alkaline Phosphatase 73 (34-104) Units/L Troponin I < 0.03 (< 0.04) ng/mL Serum Total Protein 7.9 (6.4-8.9) g/dL Albumin 4.4 (3.5-5.7) g/dL Globulin 3.5 (2.4-3.5) g/dL Albumin/Globulin Ratio 1.3 (1.1-2.2) Lipase 9 L (11-82) Units/L 03/15/18 Range/Units 17:25 WBC (4.3-11.1) K/mcL RBC (4.19-5.50) M/mcL Hgb (12.9-16.9) g/dL Hct (37.5-50.1) % MCV (83.0-100.0) fL MCH (28.0-33.3) pg MCHC (31.6-35.5) g/dL RDW (11.5-14.5) % Plt Count (140-400) K/mcL MPV (9.4-12.4) fL Immature Gran % (0-4) % Seg Neutrophils % % Lymphocytes % % Monocytes % % Eosinophils % % Basophils % % Neutrophils # (1.6-8.9) K/mcL Lymphocytes # (0.6-4.6) K/mcL Monocytes # (0.0-1.3) K/mcL Eosinophils # (0.0-0.6) K/mcL Basophils # (0.0-0.2) K/mcL PT 13.9 H (9.4-12.1) Seconds INR 1.2 APTT 33.0 (26.0-36.0) Seconds Sodium (136-145) mEq/L Potassium (3.5-5.1) mEq/L Chloride (98-107) mEq/L Carbon Dioxide (23-29) mEq/L BUN (6-20) mg/dL Creatinine (0.70-1.30) mg/dL Est GFR ( Amer) (> 60) Est GFR (Non-Af Amer) (> 60) BUN/Creatinine Ratio (6-26) Glucose (70-105) mg/dL Calculated Osmolality (280-300) Lactic Acid (0.5-2.2) mmol/L Calcium (8.6-10.3) mg/dL Phosphorus (2.7-4.5) mg/dL Magnesium (1.6-2.6) mg/dL Total Bilirubin (0.3-1.0) mg/dL Direct Bilirubin (0.0-0.2) mg/dL Indirect Bilirubin (0.0-1.2) mg/dL AST (13-39) Units/L ALT (7-52) Units/L Alkaline Phosphatase (34-104) Units/L Troponin I (< 0.04) ng/mL Serum Total Protein (6.4-8.9) g/dL Albumin (3.5-5.7) g/dL Globulin (2.4-3.5) g/dL Albumin/Globulin Ratio (1.1-2.2) Lipase (11-82) Units/L - Radiology Data Radiology results reviewed: Yes I reviewed the patient's radiology results. - EKG Data EKG #1 EKG attestation: Yes I reviewed and interpreted this EKG. EKG results narrative: sinus tachycardia with rate of 104. NO STEMI. RAD. nonspecific T wave abnormality. no old ekg. [id number]
[2018-03-15] MEDS: MVI, adult with vitamin K 10 ML in 0.9 % Sodium Chloride 1,000 ML IVC ONE ×2 (17:44→18:00)
[2018-03-15] MEDS: Folic Acid 1 MG in D5% in Water 50 ML IVPB ONE ×2 (17:45→18:09)
[2018-03-15 17:58] LABS: Alanine Aminotransferase 67 Units/L (7-52); Albumin 4.4 g/dL (3.5-5.7); Albumin/Globulin Ratio 1.3 (1.1-2.2); Alkaline Phosphatase 73 Units/L (34-104); Aspartate Amino Transferase 55 Units/L (13-39); BUN/Creatinine Ratio 12 (6-26); Bilirubin,Direct 0.2 mg/dL (0.0-0.2); Bilirubin,Indirect 0.6 mg/dL (0.0-1.2); Bilirubin,Total 0.8 mg/dL (0.3-1.0); Blood Urea Nitrogen 13 mg/dL (6-20); Calcium 9.3 mg/dL (8.6-10.3); Carbon Dioxide 23 mEq/L (23-29); Chloride 103 mEq/L (98-107); Globulin 3.5 g/dL (2.4-3.5); Glucose 113 mg/dL (70-105); Lipase 9 Units/L (11-82); Magnesium 1.6 mg/dL (1.6-2.6); Osmolality,Calculated 283 (280-300); Phosphorous 2.2 mg/dL (2.7-4.5); Potassium 2.9 mEq/L (3.5-5.1); Sodium 136 mEq/L (136-145); Total Protein 7.9 g/dL (6.4-8.9); Troponin I < 0.03 ng/mL (< 0.04); eGFR For African Americans > 60 (> 60); eGFR For Non-African Americans > 60 (> 60)
[2018-03-15] MEDS ORDERED: Aztreonam 500 MG in 0.9 % Sodium Chloride 50 ML IVPB SCH (18:00)
[2018-03-15] MEDS ORDERED: Potassium Chloride 40 MEQ, Lidocaine 1% 2 ML in D5% in Water 500 ML IVPB ONE (18:08)
[2018-03-15 18:10] LABS: INR 1.2; Prothrombin Time 13.9 Seconds (9.4-12.1)
[2018-03-15] MEDS ORDERED: *HR* FentaNYL (PF) 100 MCG/2 ML VIAL IVP ONE ×2 (18:17→20:02)
--- NOTE | 2018-03-15 18:30 | Emergency Department Note ---
Disposition Clinical Impression: Abscess, Hypokalemia Alcohol withdrawal Qualifiers: Complication of substance-induced condition: uncomplicated Qualified Code(s): F10.230 - Alcohol dependence with withdrawal, uncomplicated Disposition: Admitted As Inpatient Referrals: NONE,PCP [Primary Care Provider] - General Adult HPI - General Chief complaint: ED Skin/Abscess/Foreign Body Stated complaint: Skin problem shaking Time Seen by Provider: 03/15/18 16:47 Source: patient Limitations: no limitations Nursing Notes Reviewed: Yes Vital Signs Reviewed: Yes - History of Present Illness HPI Narrative: 47-year-old male presents emergency department with concern for abscesses on the right volar aspect of the wrist as well as second metacarpal of the right hand. Patient is an IV drug user. He reports fevers. The transition of care was provided to me by Dr. Laura Richards, who has evaluated patient, obtain CT scan of the upper extremities. Patient also reports suicidal ideations. No specific plan. Patient has been suicidal in the past in this emergency department. States that he is in extreme pain. Has difficulty moving his right hand and fingers. Pain Scale: 10 - Related Data Home Medications Medication Instructions Recorded Confirmed Gabapentin [Neurontin] 600 mg PO QID 01/15/18 03/08/18 Oxycodone HCl/Acetaminophen 1 tab PO TID PRN 03/08/18 03/08/18 [Percocet 7.5-325 mg Tablet] Previous Rx's Medication Instructions Recorded Amlodipine Besylate 10 mg PO DAILY #30 tablet 01/15/18 Lisinopril [Zestril] 40 mg PO DAILY #30 tablet 01/15/18 metFORMIN [Glucophage] 500 mg PO BIDWM #60 tablet 01/15/18 Thiamine (B-1) [Vitamin B-1] 100 mg PO DAILY tablet 01/30/18 cloNIDine HCl [CloNIDine HCl] 0.1 mg PO BID tablet 01/30/18 Allergies Allergy/AdvReac Type Severity Reaction Status Date / Time Amoxicillin Allergy Hives Verified 03/08/18 09:27 Penicillins Allergy Hives Verified 03/08/18 09:27 quetiapine [From Seroquel] Allergy Hives Verified 03/08/18 09:27 chlordiazepoxide AdvReac Gastrointestinal Verified 03/08/18 09:27 [From Librium] Upset Constitutional: Denies: fever, chills, weakness, weight change Eyes: Denies: eye pain, eye discharge, vision change ENT ED: Denies: ear pain, throat pain, dental pain, hearing loss, epistaxis, congestion, dysphagia Cardiovascular: Denies: chest pain, palpitations, dyspnea on exertion, edema, syncope Respiratory: Denies: cough, dyspnea, wheezes, hemoptysis, stridor Gastrointestinal: Denies: abdominal pain, nausea, vomiting, diarrhea, constipation, hematemesis, melena, hematochezia Genitourinary: Denies: urgency, dysuria, frequency, hematuria Musculoskeletal: Reports: as per HPI. Denies: back pain, neck pain, arthralgia , myalgia Integumentary: Reports: as per HPI. Denies: rash, abrasion, lesions Neurological: Reports: weakness. Denies: headache, numbness, paresthesias, confusion, abnormal gait, vertigo Psychiatric: Reports: anxiety, suicidal thoughts. Denies: depression, homicidal thoughts, auditory hallucinations, visual hallucinations Endocrine: Denies: fatigue Hematological/Lymphatic: Denies: easy bleeding, easy bruising Allergic/Immunologic: Denies: facial swelling, urticaria Past Medical History - Past Medical History Medical history: Reports: diabetes, hypertension Surgical history: Reports: no surgical history Psychiatric history: Reports: depression - Social History Smoking Status: Current every day smoker Smokeless Tobacco Status: No Alcohol use: Reports: heavy, recent Drug use: Reports: opiates, marijuana, prescription drug abuse Physical Exam - General Limitations: no limitations General appearance: alert, in no apparent distress, obese - Head Head exam: normocephalic - Eye Eye exam: Present: EOMI - ENT ENT exam: mucous membranes dry - Neck Neck exam: Present: trachea midline - Chest Chest inspection: Present: symmetric chest wall rise - Respiratory Respiratory exam: Absent: respiratory distress - Cardiovascular Cardiovascular exam: Present: normal rhythm, tachycardia - Abdominal Exam Abdominal exam: Present: soft, Non-Tender. Absent: distention, guarding, rebound, rigidity - Expanded Upper Extremity Exam Hand exam: Present: other (Second MCP of the right hand has a area of induration along the base of the second MCP, there is some surrounding erythema redness, pain on extension, on the extensor volar aspect of the right wrist, there is another area of induration and redness and erythema along the carpal tunnel) Course Vital Signs Temperature 99 F 07/08/18 16:38 Pulse Rate 111 03/15/18 16:38 Respiratory Rate 16 03/15/18 16:38 Blood Pressure 185/123 03/15/18 16:38 O2 Sat by Pulse Oximetry 96 03/15/18 16:38 Temperature 99 F 03/15/18 16:38 Pulse Rate 97 03/15/18 20:16 Respiratory Rate 18 03/15/18 20:59 Blood Pressure 180/93 03/15/18 20:59 O2 Sat by Pulse Oximetry 97 03/15/18 20:16 Oxygen Delivery Oxygen Delivery Room Air Medical Decision Making - MDM Narrative Medical decision making narrative: 47-year-old male presents emergency department with concern for abscess and cellulitis of the right hand and wrist. Upper extremities CT was obtained and revealed well-defined fluid collection along the soft tissues of the hand at the second metacarpophalangeal joint measuring 0.81.41.9 cm. There is also organized fluid collection along the volar soft tissues of the distal radius measuring 0.8 x 1.7 x 2.3 cm at its compatible with an abscess as well with overlying blistering. Patient has mild leukocytosis of 13. Normal renal function. Patient has potassium of 2.9. Patient was given 40 mEq of potassium in the emergency department. Patient has normal lactic acid. I spoke with Dr. Olmos, the orthopedic surgeon as there is concern for possible penetration of the carpal tunnel upon incision of the abscess of the right wrist due to its proximity to the radial artery as well as median artery, median nerve. Stated to give IV antibiotics and admitted. Patient was given vancomycin and aztreonam here in the emergency department. Patient was also given analgesia as well. There is also concern for alcohol withdrawal. Patient is a known alcoholic. Patient given Ativan here in the emergency department. Patient admitted to the hospitalist. He was also concern about suicidal ideations. Patient is not currently medically cleared to be seen by 1A at this time. Patient hemodynamically stable and not in any acute distress at this time. Upper Extremity CT 03/15/18 17:12 IMPRESSION: 1. Well-defined fluid collection along the dorsal soft tissues of the hand at the 2nd metacarpophalangeal joint measuring approximately 0.8 x 1.4 x 1.9 cm most compatible with abscess. 2. Organized fluid collection along the volar soft tissues at the distal radius measuring 0.8 x 1.7 x 2.3 cm also most compatible with abscess. Overlying blistering at this site. 3. No CT evidence for osteomyelitis. 4. Subcutaneous edema of the dorsal hand and volar wrists compatible with cellulitis. D/ / Arvin Garay MD / Arvin Garay MD Interpreting Provider: Arvin Garay MD - Lab Data Result diagrams: 03/15/18 17:20 03/15/18 17:20 Lab Results 03/15/18 03/15/18 03/15/18 Range/Units 17:20 17:20 17:20 WBC 13.0 H (4.3-11.1) K/mcL RBC 4.80 (4.19-5.50) M/mcL Hgb 14.7 (12.9-16.9) g/dL Hct 42.2 (37.5-50.1) % MCV 87.9 (83.0-100.0) fL MCH 30.6 (28.0-33.3) pg MCHC 34.8 (31.6-35.5) g/dL RDW 13.5 (11.5-14.5) % Plt Count 202 (140-400) K/mcL MPV 10.0 (9.4-12.4) fL Immature Gran % 0.3 (0-4) % Seg Neutrophils % 77.6 % Lymphocytes % 13.9 % Monocytes % 7.3 % Eosinophils % 0.5 % Basophils % 0.4 % Neutrophils # 10.1 H (1.6-8.9) K/mcL Lymphocytes # 1.8 (0.6-4.6) K/mcL Monocytes # 1.0 (0.0-1.3) K/mcL Eosinophils # 0.1 (0.0-0.6) K/mcL Basophils # 0.1 (0.0-0.2) K/mcL PT (9.4-12.1) Seconds INR APTT (26.0-36.0) Seconds Sodium 136 (136-145) mEq/L Potassium 2.9 L (3.5-5.1) mEq/L Chloride 103 (98-107) mEq/L Carbon Dioxide 23 (23-29) mEq/L BUN 13 (6-20) mg/dL Creatinine 1.06 (0.70-1.30) mg/dL Est GFR ( Amer) > 60 (> 60) Est GFR (Non-Af Amer) > 60 (> 60) BUN/Creatinine Ratio 12 (6-26) Glucose 113 H (70-105) mg/dL Calculated Osmolality 283 (280-300) Lactic Acid 0.9 (0.5-2.2) mmol/L Calcium 9.3 (8.6-10.3) mg/dL Phosphorus 2.2 L (2.7-4.5) mg/dL Magnesium 1.6 (1.6-2.6) mg/dL Total Bilirubin 0.8 (0.3-1.0) mg/dL Direct Bilirubin 0.2 (0.0-0.2) mg/dL Indirect Bilirubin 0.6 (0.0-1.2) mg/dL AST 55 H (13-39) Units/L ALT 67 H (7-52) Units/L Alkaline Phosphatase 73 (34-104) Units/L Troponin I < 0.03 (< 0.04) ng/mL Serum Total Protein 7.9 (6.4-8.9) g/dL Albumin 4.4 (3.5-5.7) g/dL Globulin 3.5 (2.4-3.5) g/dL Albumin/Globulin Ratio 1.3 (1.1-2.2) Lipase 9 L (11-82) Units/L 03/15/18 Range/Units 17:25 WBC (4.3-11.1) K/mcL RBC (4.19-5.50) M/mcL Hgb (12.9-16.9) g/dL Hct (37.5-50.1) % MCV (83.0-100.0) fL MCH (28.0-33.3) pg MCHC (31.6-35.5) g/dL RDW (11.5-14.5) % Plt Count (140-400) K/mcL MPV (9.4-12.4) fL Immature Gran % (0-4) % Seg Neutrophils % % Lymphocytes % % Monocytes % % Eosinophils % % Basophils % % Neutrophils # (1.6-8.9) K/mcL Lymphocytes # (0.6-4.6) K/mcL Monocytes # (0.0-1.3) K/mcL Eosinophils # (0.0-0.6) K/mcL Basophils # (0.0-0.2) K/mcL PT 13.9 H (9.4-12.1) Seconds INR 1.2 APTT 33.0 (26.0-36.0) Seconds Sodium (136-145) mEq/L Potassium (3.5-5.1) mEq/L Chloride (98-107) mEq/L Carbon Dioxide (23-29) mEq/L BUN (6-20) mg/dL Creatinine (0.70-1.30) mg/dL Est GFR ( Amer) (> 60) Est GFR (Non-Af Amer) (> 60) BUN/Creatinine Ratio (6-26) Glucose (70-105) mg/dL Calculated Osmolality (280-300) Lactic Acid (0.5-2.2) mmol/L Calcium (8.6-10.3) mg/dL Phosphorus (2.7-4.5) mg/dL Magnesium (1.6-2.6) mg/dL Total Bilirubin (0.3-1.0) mg/dL Direct Bilirubin (0.0-0.2) mg/dL Indirect Bilirubin (0.0-1.2) mg/dL AST (13-39) Units/L ALT (7-52) Units/L Alkaline Phosphatase (34-104) Units/L Troponin I (< 0.04) ng/mL Serum Total Protein (6.4-8.9) g/dL Albumin (3.5-5.7) g/dL Globulin (2.4-3.5) g/dL Albumin/Globulin Ratio (1.1-2.2) Lipase (11-82) Units/L - EKG Data EKG #1 EKG attestation: Yes I reviewed and interpreted this EKG. EKG results narrative: 17:16 Ventricular rate 104 bpm, AL interval 146 ms, QRS duration 105 ms, QT 342 ms, QTC 402 ms, right axis deviation. Sinus tachycardia with a ventricular rate 104 bpm. There is no evidence of any ischemic ST changes on this EKG. Attestation Statement - Attestation Attestation: I, Mauri Richards, examined this patient and my medical decision-making was reviewed with the [employer]/PA/Advanced Practice Nurse/Resident Physician. I agree with the documented findings, disposition and treatment plan as described except to the extent set forth below. Patient received in sign out during my shift. 47-year-old male presents emergency Department with concerns of pain to the right hand as well as suicidal ideation. Patient states he had been injecting heroin into the right upper extremity. He has erythema and induration over the second MCP as well as the volar aspect of the wrist. CT of the right upper extremity shows that there is multiple areas of abscess without evidence of osteomyelitis. Patient does not have fever, vomiting, diarrhea, chest pain, shortness of breath. The areas of abscess are areas that would be technically difficult to incise and drain in the emergency department. Resident, Dr. Phoenix spoke with the orthopedic, Dr. Olmos, who recommended admission to the hospital for continued care and he would likely drain the abscess in the morning. Patient also reported passive suicidal ideation, he did not have a plan. He has had suicidal ideation past but did not attempt to end his life recently. Patient was started on vancomycin and aztreonam and will be admitted to the hospitalist for further care and evaluation. He also has a history of EtOH abuse, has not been able to drink secondary to the pain in his hand. Patient was ordered a placed on CIWA protocol in the ED. Patient pink slipped in the emergency department.
[2018-03-15] MEDS: 0.9 % Sodium Chloride 1,000 ML IVC SCH (20:04)
--- NOTE | 2018-03-15 20:58 | Internal Med History&Physical ---
Addendum entered and electronically signed by Damon Ayala DO 03/15/18 23:37: May discontinue pink slip, no behavioral precautions required. Patient denies suicidal ideation. Original Note: <Damon Ayala - Last Filed: 03/15/18 22:21> Date of Encounter: 03/15/18 Time of Encounter: 20:58 Internal Medicine - H&P: HPI Chief complaint: Abscess Admitted From: Home History of present illness: Mr. Adams is a 47 year old male with a past medical history of diabetes, hypertension, alcoholism, and substance abuse presents complaining of hand abscess, fever, and chills for the past 4 days. Redness, swelling, and pain have gradually been getting worse. Patient admits to injecting heroin in the area of the abscess and most recent alcohol use yesterday. He admits to history of alcohol withdrawal seizures in the past. Of note, patient reports significant history of anxiety and depression with suicidal ideation in the past. He denies current suicidal ideation and says he wants to get better to take care of his two children. Patient denies chest pain, shortness of breath, abdominal pain, nausea, vomiting, diarrhea, constipation, recent weight loss, or history of diabetic ulcers in the past. His most recent hemoglobin A1c that was 6.9 on 03/08/18. Past Med Surg Social Fam HX - Past Medical History Medical history: diabetes, hypertension Additional medical history: Cellulitis Psychiatric history: depression - Past Surgical History Surgical History: no surgical history Additional surgical history: n/a - Social History Smoking Status: Current every day smoker Smokeless Tobacco Status: No Alcohol use: heavy, recent Drug use: opiates, marijuana, prescription drug abuse Current living situation: Home - Family History Father Living Status: Hx Family Cardiac Disorders: Yes ([place] in 50s) Mother Living Status: Hx Family Cardiac Disorders: Yes ([place] in 50s) Internal Medicine - H&P: Meds 3 Allergy/AdvReac Type Severity Reaction Status Date / Time Amoxicillin Allergy Hives Verified 03/08/18 09:27 Penicillins Allergy Hives Verified 03/08/18 09:27 quetiapine [From Seroquel] Allergy Hives Verified 03/08/18 09:27 chlordiazepoxide AdvReac Gastrointestinal Verified 03/08/18 09:27 [From Librium] Upset All Systems PM: A 10-system review of systems was performed and is negative for pertinent findings except as documented above in the HPI. - Constitutional Constitutional: chills, fever(s), weakness, no anorexia, no falls, no lethargy, no weight gain, no weight loss - EENT Eyes: no blurry vision, no diplopia Nose, mouth and throat: no sinus pain, no sore throat - Cardiovascular Cardiovascular ROS IM: no chest pain, no claudication, no palpitations - Respiratory Respiratory: no cough, no dyspnea on exertion, no wheezing - Gastrointestinal Gastrointestinal: no abdominal pain, no cramping, no heartburn, no nausea, no vomiting - Genitourinary Genitourinary ROS male: no dysuria, no urinary frequency, no urinary urgency - Musculoskeletal Musculoskeletal ROS IM: arthralgias, myalgias, no limited range of motion, no numbness, no tingling - Integumentary Integumentary IM: erythema, new lesions, skin ulcer, no pruritus - Neurological Neurological ROS: weakness, no dizziness, no numbness, no tingling - Psychiatric Psychiatric: anxiety, depression, no suicidal ideation - Endocrine Endocrine IM: no polydipsia, no polyphagia, no polyuria - Hematologic/Lymphatic Hematologic/Lymphatic: no easy bleeding, no easy bruising, no lymphadenopathy - Allergic/Immunologic Allergic/Immunologic: no uticaria, no wheezing - Constitutional Vitals: Temp Pulse Resp BP Pulse Ox 99 F 97 18 141/101 97 03/15/18 16:38 03/15/18 20:16 03/15/18 20:16 03/15/18 20:16 03/15/18 20:16 General appearance: Present: cooperative, A&O X 3, morbidly obese, no acute distress, answers questions appropriately - Head Head exam: Present: atraumatic, normocephalic - Eye Eye exam: Present: PERRL, conjuntiva pink, sclera anicteric Pupils: Present: PERRL - ENT ENT exam: Present: mucous membranes dry, normal oropharynx - Neck Neck exam general surgery: Present: supple, trachea midline. Absent: lymphadenopathy - Respiratory Respiratory exam: Present: CTAB. Absent: accessory muscle use, rales, rhonchi, wheezes - Cardiovascular Cardiovascular exam: Present: RRR, +S1, +S2. Absent: diastolic murmur, gallop, rubs, systolic murmur - GI/Abdominal GI/Abdominal exam: Present: normal bowel sounds, soft, no peritoneal signs. Absent: distended, tenderness - Extremities Exam Extremities exam: Present: normal capillary refill, warm, radial pulses palpable and symmetrical. Absent: calf tenderness, cyanotic, normal inspection , pedal edema - Incison Incision: Present: red, erythema, purulent, indurated. Absent: clean and dry - Neurological Exam Neurological exam: Present: CN II-XII intact, oriented X3, no focal deficits. Absent: pronater drift, facial droop, speech deficit - Psychiatric Psychiatric exam: Present: anxious, depressed - Skin Skin exam: Present: dry, erythema (right hand abscess overlying 2nd right MCP joint with proximal streaking, right anterior forearm, and bilateral anterior biceps), excoriation, warm. Absent: normal color Internal Med - H&P Results - Labs CBC & Chem 7: 03/15/18 17:20 03/15/18 17:20 - Pulse Oximetry Interpretation Digit-Finger O2 Sat by Pulse Oximetry: 97 (On room air) - Assessment and plan (1) Sepsis Current Visit: Yes Status: Acute Assessment and plan: Patient medicine service criteria with psychosis white blood count 13, tachycardia heart rate 107, and right hand abscess is likely source of infection Lactic acid level 0.9 He received sepsis IVF bolus in the ED He is allergic to amoxicillin, penicillin Continue empiric antibiotics Blood and wound cultures pending Deescalate antibiotics based on culture results Most recent echo 01/25/18 was negative for vegetations, consider repeat echo blood cultures positive Qualifiers: Sepsis type: sepsis due to unspecified organism Qualified Code(s): A41.9 - Sepsis, unspecified organism (2) Abscess Current Visit: Yes Status: Acute Assessment and plan: Wound cultures pending Continue antibiotics Consulted orthopedics for possible hand abscess drainage and intraoperative cultures Continue pain control for pain and NSAIDs to reduce inflammation (3) Polysubstance abuse Current Visit: Yes Status: Chronic Assessment and plan: Patient with known history of opioid, benzos, barbiturate's, cocaine, THC use Continue symptomatic treatment for signs of withdrawal (4) Benzodiazepine abuse Current Visit: Yes Status: Chronic Assessment and plan: Continue home dose Valium Continue Ativan per [facility] protocol (5) Alcohol abuse Current Visit: Yes Status: Chronic Assessment and plan: Most recent alcohol use yesterday. He admits to history of alcohol withdrawal seizures in the past. Continue Ativan per [facility] protocol Continue multivitamins, thiamine, and folate Continue close monitoring and aspiration precautions Chest x-ray pending to rule out aspiration (6) Anxiety Current Visit: Yes Status: Chronic Assessment and plan: Patient reports significant history of anxiety and depression with suicidal ideation in the past. He denies current suicidal ideation and says he wants to get better to take care of his two children. Continue Ativan per [facility] protocol (7) Diabetes mellitus type 2 in obese Current Visit: Yes Status: Chronic Assessment and plan: Patient denies history of diabetic ulcers in the past. His most recent hemoglobin A1c that was 6.9 on 03/08/18. Continue basal and sliding scale insulin Monitor Accu-Cheks [facility] ADA diet Diabetic education (8) Diastolic CHF, chronic Current Visit: No Status: Chronic Assessment and plan: Echocardiogram 01/25/18 LVEF 60%, mild concentric LVH, moderate LV diastolic dysfunction, mildly dilated right ventricle, no vegetations Patient received sepsis bolus in the ED Monitor for signs of fluid overload Chest x-ray pending (9) Hypertension Current Visit: Yes Status: Chronic Assessment and plan: Continue hydralazine when necessary Avoid beta blockers due to concurrent cocaine dependence Qualifiers: Hypertension type: essential hypertension Qualified Code(s): I10 - Essential (primary) hypertension (10) Hypokalemia Current Visit: Yes Status: Acute Assessment and plan: Potassium 2.9 Supplement potassium Mag level pending Continue telemetry monitoring (11) Hypomagnesemia Current Visit: Yes Status: Acute Assessment and plan: Mag level 1.6 Supplement magnesium Continue monitoring (12) Morbid obesity with BMI of 50.0-59.9, adult Current Visit: No Status: Chronic Assessment and plan: Lifestyle modification Diabetic education Consider outpatient sleep study to eval for RACHEL (13) Tobacco abuse Current Visit: Yes Status: Chronic Assessment and plan: Tobacco cessation discussed to promote wound healing (14) DVT prophylaxis Current Visit: Yes Status: Acute Assessment and plan: Heparin subcutaneous TID (15) Hypertensive urgency Current Visit: Yes Status: Acute Assessment and plan: Hypertensive urgency in the setting of alcohol withdrawal Continue hydralazine prn Avoid beta blockers given history of cocaine dependence Continue close monitoring - Time Spent With Patient Total time spent is greater than 50% in coordination of care (as documented) at patient's floor/unit and/or counseling patient: Sepsis Reassessment Note - Evaluation Sepsis Screen: No Definite Risk Current Stage of Sepsis: sepsis Possible Source of Sepsis: skin/soft tissue - Focused Exam Date of Encounter: 03/15/18 Time of Encounter: 21:53 Vital Signs: Vital Signs Temp Pulse Resp BP Pulse Ox 03/15/18 21:30 98.8 F 103 20 205/105 97 03/15/18 20:59 18 180/93 Respiratory Exam: Present: CTA bilaterally Cardiovascular Exam: Present: tachycardia Capillary Refill: < 2 seconds Peripheral Pulse Strength: 3+ normal Peripheral Pulse Location: Radial Skin Exam: normal turgor <Kaylee Ortiz - Last Filed: 03/16/18 04:46> Date of Encounter: 03/16/18 Internal Medicine - H&P: HPI History of present illness: Mr. Adams is a 47 year old male All Systems PM: A 10-system review of systems was performed and is negative for pertinent findings except as documented above in the HPI. - Constitutional Vitals: Temp Pulse Resp BP Pulse Ox 98.3 F 95 20 158/78 92 03/16/18 04:41 03/16/18 04:41 03/16/18 04:41 03/16/18 04:41 03/16/18 04:41 Internal Med - H&P Results - Labs CBC & Chem 7: 03/16/18 01:28 03/16/18 01:28 Labs: Short CBC 03/16/18 Range/Units 01:28 WBC 10.3 (4.3-11.1) K/mcL Hgb 13.2 D (12.9-16.9) g/dL Hct 39.0 (37.5-50.1) % Plt Count 172 (140-400) K/mcL Neutrophils # 7.2 (1.6-8.9) K/mcL BMP 03/16/18 01:28 Sodium 137 Potassium 3.0 L Chloride 105 Carbon Dioxide 24 BUN 11 Creatinine 0.85 Glucose 119 H Calcium 8.3 L - Attending Attestation I have seen and examined this patient independently. I have discussed with resident physician Dr. Ayala regarding the management plan. Agree with the documentation. - Assessment and plan (1) Benzodiazepine abuse Current Visit: Yes Status: Chronic (2) DVT prophylaxis Current Visit: Yes Status: Acute (3) Hypertension Current Visit: Yes Status: Chronic Qualifiers: Hypertension type: essential hypertension Qualified Code(s): I10 - Essential (primary) hypertension (4) Diabetes mellitus type 2 in obese Current Visit: Yes Status: Chronic (5) Polysubstance abuse Current Visit: Yes Status: Chronic (6) Hypomagnesemia Current Visit: Yes Status: Acute (7) Morbid obesity with BMI of 50.0-59.9, adult Current Visit: No Status: Chronic (8) Tobacco abuse Current Visit: Yes Status: Chronic (9) Anxiety Current Visit: Yes Status: Chronic (10) Alcohol abuse Current Visit: Yes Status: Chronic (11) Hypokalemia Current Visit: Yes Status: Acute (12) Diastolic CHF, chronic Current Visit: No Status: Chronic (13) Abscess Current Visit: Yes Status: Acute (14) Sepsis Current Visit: Yes Status: Acute Qualifiers: Sepsis type: sepsis due to unspecified organism Qualified Code(s): A41.9 - Sepsis, unspecified organism (15) Hypertensive urgency Current Visit: Yes Status: Acute - Time Spent With Patient Total time spent is greater than 50% in coordination of care (as documented) at patient's floor/unit and/or counseling patient: Sepsis Reassessment Note - Focused Exam Vital Signs: Vital Signs Temp Pulse Resp BP Pulse Ox 03/16/18 04:41 98.3 F 95 20 158/78 92 03/15/18 23:44 98.2 F 104 22 169/81 93
[2018-03-15 21:12] LABS: Bilirubin,Urine Small (Negative); Blood,Urine Negative (Negative); Clarity,Urine Clear (Clear); Color,Urine Yellow (Yellow); Glucose,Urine (UA) Normal (Normal); Ketones,Urine 15 mg/dL (Negative); Leukocyte Esterase,Urine Negative (Negative); Nitrite,Urine Negative (Negative); Protein,Urine 100 mg/dL (Neg-Trace); Urobilinogen,Urine Normal (Normal)
[2018-03-15 21:18] LABS: Hyaline Casts,Urine Few per lpf (None-Few); Squamous Epithelial Cell,Urine Few per lpf (None-Few); WBC,Urine 0-3 per hpf (0-3)
[2018-03-15] MEDS ORDERED: *HR* Promethazine 25 MG/ML VIAL IVP PRN (21:54)
[2018-03-15] MEDS ORDERED: Ondansetron 4 MG/2 ML VIAL IVP PRN (21:57)
[2018-03-15] MEDS ORDERED: Naloxone 0.4 MG/ML INJ IVP PRN (22:02)
[2018-03-15] MEDS: diazePAM 10 MG TABLET PO SCH (22:32)
[2018-03-15] MEDS: Ketorolac 30 MG/ML VIAL IVP PRN (22:33)
[2018-03-15] MEDS ORDERED: D5% in Water 1,000 ML IVC PRN (22:44)
[2018-03-15] MEDS ORDERED: Dextrose Gel 15 GM/37.5 ML TUBE PO PRN ×2 (22:44)
[2018-03-15] MEDS ORDERED: *HR* Dextrose 50 % in Water (Syg) 50 ML SYRINGE IVP PRN (22:44)
[2018-03-15] MEDS: Nicotine 21 MG PATCH.TD24 TD SCH (23:14)
[2018-03-15] MEDS: Insulin DETEMIR 100 UNIT/ML X5UNITS SQ SCH (23:15)
[2018-03-15] MEDS: *HR* LORazepam 2 MG/ML VIAL IVP PRN (23:20)
[2018-03-16] MEDS: Insulin LISPRO 300 UNITS/3 ML VIAL SQ SCH ×4 (00:42→18:48)
[2018-03-16] MEDS: Ibuprofen 600 MG TABLET PO SCH ×3 (00:44→16:00)
[2018-03-16] MEDS ORDERED: 0.9 % Sodium Chloride 1,000 ML IVC SCH (02:00)
[2018-03-16 02:04] LABS: Hemoglobin 13.2 g/dL (12.9-16.9); Immature Granulocytes % 0.3 % (0-4); Lymphocytes % 19.9 %; Mean Corpuscular HGB Conc 33.8 g/dL (31.6-35.5); Mean Corpuscular Hemoglobin 30.1 pg (28.0-33.3); Mean Platelet Volume 10.4 fL (9.4-12.4); Platelet Count 172 K/mcL (140-400); Red Blood Count 4.38 M/mcL (4.19-5.50); Red Cell Distribution Width 13.5 % (11.5-14.5); Segmented Neutrophils % 69.8 %
[2018-03-16 02:05] LABS: Basophils % 0.3 %; Eosinophils # 0.2 K/mcL (0.0-0.6); Eosinophils % 1.7 %; Lymphocytes # 2.1 K/mcL (0.6-4.6); Monocytes # 0.8 K/mcL (0.0-1.3); Neutrophils # 7.2 K/mcL (1.6-8.9)
[2018-03-16 02:07] LABS: INR 1.3; Prothrombin Time 14.2 Seconds (9.4-12.1)
[2018-03-16] MEDS: 0.9 % Sodium Chloride 1,000 ML IVC SCH (02:10)
[2018-03-16 02:12] LABS: BUN/Creatinine Ratio 13 (6-26); Blood Urea Nitrogen 11 mg/dL (6-20); Calcium 8.3 mg/dL (8.6-10.3); Carbon Dioxide 24 mEq/L (23-29); Chloride 105 mEq/L (98-107); Glucose 119 mg/dL (70-105); Magnesium 1.6 mg/dL (1.6-2.6); Osmolality,Calculated 285 (280-300); Sodium 137 mEq/L (136-145); eGFR For African Americans > 60 (> 60); eGFR For Non-African Americans > 60 (> 60)
[2018-03-16] MEDS ORDERED: *HR* LORazepam 2 MG/ML VIAL IVP ONE (02:54)
[2018-03-16] MEDS: Aztreonam 1,000 MG in Water for inj. (sterile) 20 ML 10 ML IVP SCH ×3 (04:43→22:43)
[2018-03-16] MEDS: *HR* LORazepam 2 MG/ML VIAL IVP PRN ×5 (04:43→22:52)
[2018-03-16] MEDS: *HR* Heparin 5,000 UNIT/ML VIAL SQ SCH ×2 (05:09→17:26)
[2018-03-16] MEDS: Ketorolac 30 MG/ML VIAL IVP PRN ×3 (05:50→18:42)
--- NOTE | 2018-03-16 08:36 | Orthopedic Consult Note ---
Date of Encounter: 03/16/18 Time of Encounter: 08:34 Assessment and Plan (1) Abscess Current Visit: Yes Status: Acute I did discuss the diagnosis in detail with the patient. He is right upper extremity abscesses as described above. My recommendation was for incision, drainage, irrigation, debridement to drain the abscess followed by IV antibiotics per the primary team. The risks discussed included but were not limited to stiffness, bleeding, infection, blood clots, damage to neurovascular structures, tendons, ligaments, and bone. Also discussed was the risk of continued symptoms and possible need for further procedures. I did discuss the anesthesia risks including stroke, heart attack, and . The patient did wish to proceed. History of Present Illness HPI: Mr. Adams is a 47 year old male. He is currently admitted to the hospitalist with right upper extremity abscesses. The patient is an IV drug user as well as an alcoholic. He has had a 4 day history of infection of the right upper extremity which she says is related to injecting. No new injuries or complaints. Apparently he did have chills earlier but currently has no feelings of illness. Symptoms are worse with use and movement of the hand and the wrist and better with rest. He denies any numbness, tingling, or any other associated signs or symptoms or modifying factors. Past Med Surg Social Fam HX - Past Medical History Medical history: diabetes, hypertension Additional medical history: Cellulitis Psychiatric history: depression - Past Surgical History Surgical History: no surgical history Additional surgical history: n/a - Social History Smoking Status: Current every day smoker Packs per day: 2 Smokeless Tobacco Status: No Alcohol use: heavy, recent Drug use: opiates, marijuana, prescription drug abuse - Family History Father Living Status: Age at : 53 Cause of : ALCOHOLISM Hx Family Cardiac Disorders: Yes ([place] in 50s) Mother Living Status: Hx Family Cardiac Disorders: Yes ([place] in 50s) Medications and Allergies 3 Allergy/AdvReac Type Severity Reaction Status Date / Time Amoxicillin Allergy Hives Verified 03/08/18 09:27 Penicillins Allergy Hives Verified 03/08/18 09:27 quetiapine [From Seroquel] Allergy Hives Verified 03/08/18 09:27 chlordiazepoxide AdvReac Gastrointestinal Verified 03/08/18 09:27 [From Librium] Upset All Systems Reviewed: Constitutional and musculoskeletal systems were reviewed and are negative unless otherwise stated in history of present illness. Physical Exam - Constitutional Vitals: Temp Pulse Resp BP Pulse Ox 98.2 F 92 18 145/88 90 03/16/18 06:59 03/16/18 06:59 03/16/18 06:59 03/16/18 06:59 03/16/18 06:59 Constitutional -Vitals reviewed -The patient is well developed and well nourished. -Mood is pleasant. -The patient is well groomed. Psychiatric -The patient is fully alert and oriented x 3. Respiratory: -Respiratory effort normal Abdomen: -Soft abdomen -Non tender -Non distended: Left upper extremity: -No deformities. The overlying skin is intact. No obvious signs of acute trauma. -No tenderness to palpation throughout. -No significant pain with passive motion of the shoulder, elbow, wrist, and fingers within the limits of the bed. -Able to make an "OK" sign, cross the index and long fingers, and extend the thumb. -Sensation grossly intact to light touch throughout the median, radial, and ulnar distributions. -Radial pulse is present; Fingers have good capillary refill. Right upper extremity: -No deformities. The overlying skin is intact. No obvious signs of acute trauma. -Tenderness to palpation over the dorsal index metacarpophalangeal joint region as well as over the volar wrist area where there are areas of induration and fluctuance consistent with abscess. -He grossly flexes and extends the wrist and digits without significant discomfort through the mid range of these joint motions. - The patient can actively flex and extend all digits, extend the thumb, cross the index and long fingers, make an okay sign, and oppose the thumb. - The fingertips are all grossly sensate and well-perfused, and the radial artery pulse is 2+. Left lower extremity: -No deformities. The overlying skin is intact. No obvious signs of acute trauma. -No tenderness to palpation throughout. -No pain with passive motion of the hip, knee, ankle, and toes within the limits of the bed. -No pain with axial loading of the thigh. -Able to dorsiflex and plantarflex the ankle and toes. -Sensation is grossly intact to light touch throughout the sural, saphenous, superficial peroneal, and deep peroneal distributions. -Toes have good capillary refill. Right lower extremity: -No deformities. The overlying skin is intact. No obvious signs of acute trauma. -No tenderness to palpation throughout. -No pain with passive motion of the hip, knee, ankle, and toes within the limits of the bed. -No pain with axial loading of the thigh. -Able to dorsiflex and plantarflex the ankle and toes. -Sensation is grossly intact to light touch throughout the sural, saphenous, superficial peroneal, and deep peroneal distributions. -Toes have good capillary refill. Diagnostic Imaging: I did personally review and interpret the CT scan of the right upper extremity which demonstrates abscesses that appear to be confined to the subcutaneous spaces of the right dorsal index metacarpal phalangeal joint area as well as the volar wrist area. Results - Labs Result Diagrams: 03/16/18 01:28 03/16/18 01:28 Labs: Abnormal lab results PT 14.2 Seconds (9.4-12.1) H 03/16/18 01:28 Potassium 3.0 mEq/L (3.5-5.1) L 03/16/18 01:28 Glucose 119 mg/dL (70-105) H 03/16/18 01:28 POC Glucose 109 mg/dL (70-99) H 03/16/18 05:50 Calcium 8.3 mg/dL (8.6-10.3) L 03/16/18 01:28 Phosphorus 2.2 mg/dL (2.7-4.5) L 03/15/18 17:20 AST 55 Units/L (13-39) H 03/15/18 17:20 ALT 67 Units/L (7-52) H 03/15/18 17:20 Lipase 9 Units/L (11-82) L 03/15/18 17:20 Urine Protein 100 mg/dL (Neg-Trace) H 03/15/18 20:59 Urine Ketones 15 mg/dL (Negative) H 03/15/18 20:59 Urine Bilirubin Small (Negative) H 03/15/18 20:59 H & H 03/16/18 Range/Units 01:28 Hgb 13.2 D (12.9-16.9) g/dL Hct 39.0 (37.5-50.1) % All other labs normal. Consult Discharge Plan - Plan Referrals: NONE,PCP [Primary Care Provider] -
[2018-03-16] MEDS ORDERED: Potassium Chloride Elixir 20 MEQ/15 ML UDC PO ONE (08:44)
[2018-03-16] MEDS: diazePAM 10 MG TABLET PO SCH ×2 (09:35→21:41)
[2018-03-16] MEDS: Nicotine 21 MG PATCH.TD24 TD SCH (10:05)
[2018-03-16] MEDS: Folic Acid 1 MG TABLET PO SCH (10:05)
[2018-03-16] MEDS: Thiamine (B-1) 100 MG TABLET PO SCH (10:05)
[2018-03-16] MEDS: Multivit/Ca/Min/Fe/FA 1 TAB TABLET PO SCH (10:05)
--- NOTE | 2018-03-16 15:44 | Anesthesia Evaluation PreOp ---
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: Denies Any Significant HX Other Medical History: Diabetes Type II, Other (obesity BMI=51.4, anxiety/ depression) Alcohol Use: heavy (up to 24 beers daily), recent Drug use: opiates, marijuana, prescription drug abuse Medications and Allergies No Known Home Drugs 03/16/18 [History] 3 Allergy/AdvReac Type Severity Reaction Status Date / Time Amoxicillin Allergy Hives Verified 03/08/18 09:27 Penicillins Allergy Hives Verified 03/08/18 09:27 quetiapine [From Seroquel] Allergy Hives Verified 03/08/18 09:27 chlordiazepoxide AdvReac Gastrointestinal Verified 03/08/18 09:27 [From Librium] Upset - Meds/Allergy Pre-op Review Medications Reviewed: Yes Allergies Reviewed: Yes Beta Blockers on Current Med List: No Anesthesia Results - Labs 03/16/18 01:28 03/16/18 01:28 Laboratory Tests 03/15/18 03/16/18 17:25 01:28 PT 14.2 H INR 1.3 APTT 33.0 - Imaging EKG: report reviewed (03/06/2018 SINUS RHYTHM Poor R wave progression BASELINE ARTIFACT) Additional studies: 01/24/2018 Echo Impressions: LVEF 60%. Normal LV chamber size and function. Mild concentric left ventricular hypertrophy. Moderate left ventricular diastolic dysfunction. Mildly dilated right ventricle with normal function. No evidence of pulmonary hypertension. No significant valvular dysfunction. Anesthesia Exam Vital Signs/O2 Sat/Glucose, Most Recent Temp Pulse Resp BP Pulse Ox 98.7 F 93 16 157/84 95 03/16/18 12:29 03/16/18 12:29 03/16/18 12:29 03/16/18 12:29 03/16/18 12:29 Blood Glucose* 131 Height: 5'10"/1.78m Weight: 358 lbs/162.4 kg NPO (# of Hours): 8 Pain Scale: 0 Pain Scale Used: Numeric (1 - 10) Anesthesia Assess/Plan ASA Score: 4 Modified Mary Scale for Level of Consciousness: Cooperative, oriented, and tranquil Anesthetic Plan: General Monitoring Plan: Standard Monitors Recovery Plan: PACU <Genevieve Funes - Last Filed: 03/16/18 19:37> Date of Encounter: 03/16/18 - Past History Pulmonary History: COPD 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
--- NOTE | 2018-03-16 16:48 | Internal Med Progress Note ---
<Keke Nogueira - Last Filed: 03/16/18 16:46> Date of Encounter: 03/16/18 Time of Encounter: 04:45 - Assessment and plan (1) Abscess Current Visit: Yes Status: Acute Assessment and plan: Wound cultures pending but would be inaccurate as he was started on antibiotics Continue antibiotics Consulted orthopedics, they will consider incision and drainage for hand abscess drainage and intraoperative cultures Continue pain control for pain and NSAIDs to reduce inflammation (2) Benzodiazepine abuse Current Visit: Yes Status: Chronic Assessment and plan: On valium to prevent alcohol withdrawal Wanted to change it to librium but he has gastrointestinal effects from it Continue Ativan per CIWA protocol (3) Hypertension Current Visit: Yes Status: Chronic Assessment and plan: Continue hydralazine when necessary Avoid beta blockers due to cocaine dependence Qualifiers: Hypertension type: essential hypertension Qualified Code(s): I10 - Essential (primary) hypertension (4) Diabetes mellitus type 2 in obese Current Visit: Yes Status: Chronic Assessment and plan: Patient denies history of diabetic ulcers in the past. His most recent hemoglobin A1c that was 6.9 on 03/08/18. Continue basal and sliding scale insulin Monitor Accu-Cheks ACHS ADA diet Diabetic education (5) Polysubstance abuse Current Visit: Yes Status: Chronic Assessment and plan: Patient with known history of opioid, benzos, barbiturate's, cocaine, THC use Continue symptomatic treatment for signs of withdrawal (6) Hypomagnesemia Current Visit: Yes Status: Acute Assessment and plan: Currently stable Mag level 1.6 Supplement magnesium given this morning Continue monitoring (7) Morbid obesity with BMI of 50.0-59.9, adult Current Visit: No Status: Chronic Assessment and plan: Lifestyle modification Diabetic education Consider outpatient sleep study to eval for RACHEL Low fat, low salt and diabetic diet after procedure (8) Tobacco abuse Current Visit: Yes Status: Chronic Assessment and plan: Tobacco cessation discussed to promote wound healing. On nicotine patch (9) Anxiety Current Visit: Yes Status: Chronic Assessment and plan: Patient reports significant history of anxiety and depression with suicidal ideation in the past. He denies current suicidal ideation He said recently his girlffriend broke up with him so he has been more stressed , says he wants to get better to take care of his two children. Continue Ativan per CIWA protocol (10) Alcohol abuse Current Visit: Yes Status: Chronic Assessment and plan: Most recent alcohol use Friday yesterday. He admits to history of alcohol withdrawal seizures in the past. Continue Ativan per CIWA protocol Continue multivitamins, thiamine, and folate Continue close monitoring and aspiration precautions Chest x-ray pending to rule out aspiration (11) Hypokalemia Current Visit: Yes Status: Acute Assessment and plan: Potassium 2.9 Supplement potassium Mag level within normal low limits Continue telemetry monitoring (12) Diastolic CHF, chronic Current Visit: No Status: Chronic Assessment and plan: Echocardiogram 01/25/18 LVEF 60%, mild concentric LVH, moderate LV diastolic dysfunction, mildly dilated right ventricle, no vegetations Patient received sepsis bolus in the ED Continue monitoring for signs of fluid overload Chest x-ray findings are within normal limits, does show mild cardiomegaly with some hazy opacity (13) Sepsis Current Visit: Yes Status: Acute Assessment and plan: Patient medicine service criteria with psychosis white blood count 13, tachycardia heart rate 107, and right hand abscess is likely source of infection Lactic acid level was 0.9 He received sepsis IVF bolus in the ED He is allergic to amoxicillin, penicillin Continue empiric antibiotics, Vanc day 1 Blood and wound cultures pending but may be inaccurate due to initial start of antibiotics Most recent echo 01/25/18 was negative for vegetations Has no valve replacement or hardware Continue to monitor would healing Qualifiers: Sepsis type: sepsis due to unspecified organism Qualified Code(s): A41.9 - Sepsis, unspecified organism (14) DVT prophylaxis Current Visit: Yes Status: Acute Assessment and plan: Heparin subcutaneous TID (15) Hypertensive urgency Current Visit: Yes Status: Acute Assessment and plan: Hypertensive urgency in the setting of alcohol withdrawal Blood pressure 157/84 Continue hydralazine prn Avoid beta blockers given history of cocaine dependence Continue close monitoring - Time Spent With Patient Total time spent is greater than 50% in coordination of care (as documented) at patient's floor/unit and/or counseling patient: - Subjective Interval history: Mr. Adams presented to the ED due to right hand abscess. He stated the abscess has been present for 4 days and he has been using IV heroin at that region. He also stated that he has not been taking his home medications and does not follow with a PCP. He elicited subjective fever, chills and diarrhea. He denied nausea, vomiting, chest pain, shortness of breath, blurry vision or paresthesis. He also stated he drinks 12 bottles of beer daily. This morning he is sleepy but alert, oriented to person, place and time. - Constitutional Vitals: Temp Pulse Resp BP Pulse Ox 98.7 F 93 16 157/84 95 03/16/18 12:29 03/16/18 12:29 03/16/18 12:29 03/16/18 12:29 03/16/18 12:29 General appearance: Present: cooperative, A&O X 3, morbidly obese, no acute distress, answers questions appropriately Exam: sleepy - Head Head exam: Present: atraumatic, normocephalic - Eye Eye exam: Present: EOMI, sclera anicteric. Absent: conjunctival injection, nystagmus - ENT ENT exam: Present: mucous membranes moist - Neck Neck exam general surgery: Present: full ROM, trachea midline - Respiratory Respiratory exam: Present: CTAB. Absent: rales, rhonchi, wheezes - Cardiovascular Cardiovascular exam: Present: +S1, +S2. Absent: JVD - GI/Abdominal GI/Abdominal exam: Present: normal bowel sounds. Absent: firm, tenderness - Extremities Exam Extremities exam: Present: warm. Absent: pedal edema, tenderness - Psychiatric Psychiatric exam: Present: flat affect. Absent: anxious, depressed Additional comments: slightly labile, disinterested - Skin Skin exam: Present: warm. Absent: cyanosis (right dorsal aspect of the hand and wrirst has purrulent lesions) Internal Medicine: Result - Labs CBC & Chem 7: 03/16/18 01:28 03/16/18 01:28 Labs: Short CBC 03/16/18 Range/Units 01:28 WBC 10.3 (4.3-11.1) K/mcL Hgb 13.2 D (12.9-16.9) g/dL Hct 39.0 (37.5-50.1) % Plt Count 172 (140-400) K/mcL Neutrophils # 7.2 (1.6-8.9) K/mcL BMP 03/16/18 01:28 Sodium 137 Potassium 3.0 L Chloride 105 Carbon Dioxide 24 BUN 11 Creatinine 0.85 Glucose 119 H Calcium 8.3 L - ABG Interpretation ABG results: PT/INR, D-dimer PT 14.2 Seconds (9.4-12.1) H 07/09/18 01:28 - Impressions Impressions Chest X-Ray 03/16/18 22:18 IMPRESSION: Suboptimal inspiration with bronchovascular crowding. Possible mild diffuse pulmonary edema. No focal consolidation to suggest pneumonia. D/ / Winston Davila MD / Winston Davila MD Interpreting Provider: Winston Davila MD Consult Discharge Plan - Plan Referrals: NONE,PCP [Primary Care Provider] - <Willian Prince - Last Filed: 03/16/18 18:51> Date of Encounter: 03/16/18 - Assessment and plan (1) Benzodiazepine abuse Current Visit: Yes Status: Chronic (2) DVT prophylaxis Current Visit: Yes Status: Acute (3) Hypertension Current Visit: Yes Status: Chronic Qualifiers: Hypertension type: essential hypertension Qualified Code(s): I10 - Essential (primary) hypertension (4) Diabetes mellitus type 2 in obese Current Visit: Yes Status: Chronic (5) Polysubstance abuse Current Visit: Yes Status: Chronic (6) Hypomagnesemia Current Visit: Yes Status: Acute (7) Morbid obesity with BMI of 50.0-59.9, adult Current Visit: No Status: Chronic (8) Tobacco abuse Current Visit: Yes Status: Chronic (9) Anxiety Current Visit: Yes Status: Chronic (10) Alcohol abuse Current Visit: Yes Status: Chronic (11) Hypokalemia Current Visit: Yes Status: Acute (12) Diastolic CHF, chronic Current Visit: No Status: Chronic (13) Abscess Current Visit: Yes Status: Acute (14) Sepsis Current Visit: Yes Status: Acute Qualifiers: Sepsis type: sepsis due to unspecified organism Qualified Code(s): A41.9 - Sepsis, unspecified organism (15) Hypertensive urgency Current Visit: Yes Status: Acute - Time Spent With Patient Total time spent is greater than 50% in coordination of care (as documented) at patient's floor/unit and/or counseling patient: - Constitutional Vitals: Temp Pulse Resp BP Pulse Ox 98.7 F 93 16 157/84 95 03/16/18 12:29 03/16/18 12:29 03/16/18 12:29 03/16/18 12:29 03/16/18 12:29 Internal Medicine: Result - Labs CBC & Chem 7: 03/16/18 01:28 03/16/18 01:28 Labs: Short CBC 03/16/18 Range/Units 01:28 WBC 10.3 (4.3-11.1) K/mcL Hgb 13.2 D (12.9-16.9) g/dL Hct 39.0 (37.5-50.1) % Plt Count 172 (140-400) K/mcL Neutrophils # 7.2 (1.6-8.9) K/mcL BMP 03/16/18 01:28 Sodium 137 Potassium 3.0 L Chloride 105 Carbon Dioxide 24 BUN 11 Creatinine 0.85 Glucose 119 H Calcium 8.3 L - ABG Interpretation ABG results: PT/INR, D-dimer PT 14.2 Seconds (9.4-12.1) H 03/16/18 01:28 - Impressions Impressions Chest X-Ray 03/16/18 22:18 IMPRESSION: Suboptimal inspiration with bronchovascular crowding. Possible mild diffuse pulmonary edema. No focal consolidation to suggest pneumonia. D/ / Winston Davila MD / Winston Davila MD Interpreting Provider: Winston Davlia MD - Attending Attestation I examined this patient and my medical decision-making was reviewed with the Resident Physician. I agree with the documented findings, disposition and treatment plan as described except to the extent set forth below.
--- NOTE | 2018-03-16 19:04 | Electrocardiograph Report ---
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
[2018-03-16] MEDS ORDERED: Bupivacaine/EPI 1:200k 0.5%PF 10 ML VIAL ONE (19:10)
[2018-03-16] MEDS ORDERED: *HR* Midazolam HCl 2 MG/2 ML VIAL ONE (19:13)
[2018-03-16] MEDS ORDERED: *HR* Propofol 200 MG/20 ML VIAL IVP ONE (19:13)
[2018-03-16] MEDS ORDERED: *HR* Succinylcholine 200 MG/10 ML VIAL IVP ONE (19:13)
[2018-03-16] MEDS ORDERED: Lidocaine -MPF 2% 2 ML VIAL ONE (19:13)
[2018-03-16] MEDS ORDERED: *HR* FentaNYL (PF) 100 MCG/2 ML VIAL ONE (19:13)
[2018-03-16] MEDS ORDERED: Ondansetron 4 MG/2 ML VIAL ONE (20:12)
[2018-03-16] MEDS ORDERED: Dexamethasone 4 MG/ML VIAL ONE (20:12)
--- NOTE | 2018-03-16 20:52 | Orthopedic Operative Note ---
Date of procedure: 03/16/18 Procedure: OPERATIVE REPORT DATE OF PROCEDURE: 03/16/2018 SURGEON: Chiki Thomas MD YOUTH LEADER(S): There were no assistants PREOPERATIVE DIAGNOSIS: Right dorsal hand abscess and right volar wrist abscess POSTOPERATIVE DIAGNOSIS: Same PROCEDURE: Incision, drainage, irrigation, debridement of the right dorsal hand abscess dorsal to the index metacarpophalangeal joint and right volar wrist abscess ANESTHESIA: Gen. anesthesia PREOPERATIVE ANTIBIOTICS: Vancomycin from the floor ESTIMATED BLOOD LOSS: 1 milliliters SPECIMENS: Swabs for aerobic and anaerobic specimens PREOPERATIVE NOTE AND INDICATIONS: This patient is a 47-year-old male with the above soft tissue abscesses. Recommendation was for the above procedure to help in infection treatment followed by IV antibiotics per the primary team. The surgical plan was discussed with the patient. The risks, benefits, alternatives, and potential complications of this procedure were discussed with the patient including injury to veins, arteries, nerves, tendons, ligaments, and bone. Also discussed were the risks of infection, bleeding, pain, blood clots, the possible need for a blood transfusion, the possible need for further procedures, heart attack, stroke, and . All of this was explained in simple terms, and the patient verbalized understanding and wished to proceed. Consent was given to proceed with surgery. PROCEDURE: The patient was seen in the preoperative holding area where the identify and the consent were confirmed. The right upper extremity was marked. Final questions were answered. The patient was brought back to the operating room and placed supine on the operating room table. A huddle was performed with the patient and all vital surgical team members confirming patient identity, the correct procedure, and the correct operative site. General anesthesia was administered. The right upper extremity was prepped and draped in the usual sterile fashion. A surgical time out was performed immediately preceding the incision with all personnel in the operating room to confirm patient identity, the correct operative site and extremity, correct radiographic studies, availability of appropriate surgical equipment, and agreement on the planned procedure. The tourniquet was inflated without exsanguination. A longitudinal incision was made over the index metacarpophalangeal joint area which discharged copious amounts of pus. This was sent for culture. The wound was spread open and copiously irrigated with saline. The wound was packed open with quarter-inch iodoform packing. Attention was directed to the volar wrist where a 7 cm longitudinal incision was made and dissection proceeded carefully through the subcutaneous tissue and grossly purulent material was returned. The fascia was identified and opened and there is noted to be no further infection deep to the fascia. After irrigating with 3 L of saline the wound was loosely closed over a [place] drain. A soft, sterile dressing was applied and the tourniquet was deflated. The instrument, sponge, and needle counts were correct after wound closure. POST OPERATIVE PLAN: Weight Bearing: Weightbearing as tolerated to the right upper extremity. DVT Prophylaxis: Ambulation Activity: Avoid aggressive activities with right upper extremity Wound Care: Daily dressing and packing changes Pain Control: Per the primary team Perioperative antibiotic: Vancomycin Follow Up: 2 weeks Was there an assistant director of security present: No Estimated blood loss (cc): 1
[2018-03-16] MEDS ORDERED: *HR* OxyCODONE Immed Rel 5 MG TABLET PO PRN (21:02)
[2018-03-16] MEDS ORDERED: *HR* Promethazine 25 MG/ML VIAL IVP PRN (21:02)
[2018-03-16] MEDS ORDERED: Acetaminophen IV 1,000 MG/100 ML INFUS..BTL IVPB ONE (21:02)
[2018-03-16] MEDS ORDERED: diazePAM 5 MG TABLET PO ONE (21:39)
[2018-03-16] MEDS: Insulin DETEMIR 100 UNIT/ML X5UNITS SQ SCH (22:43)
[2018-03-16] MEDS: Thiamine (B-1) 100 MG, Folic Acid 1 MG, MVI, adult with vitamin K 10 ML in 0.9 % Sodi... IVPB SCH (22:50)
--- NOTE | 2018-03-16 22:55 | Anesthesia Evaluation Post Op ---
Date of Encounter: 03/16/18 Time of Encounter: 21:50 - Vital Signs Vital Signs: Last Vital Signs Temp 98.8 F 03/16/18 22:48 Pulse 84 03/16/18 22:48 Resp 14 03/16/18 22:48 BP 159/79 03/16/18 22:48 Pulse Ox 97 03/16/18 22:48 - Lungs Lungs: Clear Ascult./Percussion - Airway Airway: Non-obstructed - Cardiovascular Regular Rate - Mental Status Mental Status: Alert & Oriented, Answers Appropriately - Pain Pain Scale: 8 (better than baseline) - Nausea Vomiting Nausea Vomiting: Not Present - Hydration Hydration: NPO - Discharge PostOp Status: Transfer Patient to floor
[2018-03-17] MEDS: Ibuprofen 600 MG TABLET PO SCH
[2018-03-17] MEDS: Aztreonam 1,000 MG in Water for inj. (sterile) 20 ML 10 ML IVP SCH ×3 (04:43→20:42)
[2018-03-17] MEDS: Ketorolac 30 MG/ML VIAL IVP PRN (05:06)
[2018-03-17] MEDS: *HR* Heparin 5,000 UNIT/ML VIAL SQ SCH ×3 (05:06→18:09)
[2018-03-17] MEDS: Insulin LISPRO 300 UNITS/3 ML VIAL SQ SCH ×5 (07:45→23:00)
--- NOTE | 2018-03-17 07:55 | Orthopedics Progress Note ---
Date of Encounter: 03/17/18 Time of Encounter: 07:53 - Assessment and Plan (1) Abscess Current Visit: Yes Status: Acute Subjective Interval history: S: Patient is resting in bed comfortably. The pain is well-controlled O: Afebrile on the vital signs are stable Evaluation of the wound show no gross purulent material. Packing changed about the dorsal index metacarpophalangeal joint wound. The volar wrist wound is clean with minimal drainage and improving erythema. [place] drain is In place. The patient can actively flex and extend all digits, extend the thumb, cross the index and long fingers, make an okay sign, and oppose the thumb. The fingertips are all grossly sensate and well-perfused, and the radial artery pulse is 2+. A: Post I&D of the right upper extremity, improving P: I will pull the sho drain tomorrow and at that point I anticipate that he will be stable enough for discharge. Elevation of the right upper extremity Motion exercises. Objective Vital signs: Vital Signs Temp Pulse Resp BP Pulse Ox 03/17/18 07:31 97.4 F L 94 16 126/72 90 03/17/18 02:53 98.2 F 87 18 127/72 92 03/16/18 22:48 98.8 F 84 14 159/79 97 03/16/18 21:43 99.2 F 85 16 130/63 94 03/16/18 21:33 99.6 F 88 16 145/82 95 03/16/18 21:23 85 16 143/83 93 03/16/18 21:13 99.8 F H 83 18 121/69 95 03/16/18 21:03 87 16 155/87 94 03/16/18 20:53 83 14 106/44 93 03/16/18 20:43 99.9 F H 89 14 132/70 91 03/16/18 18:54 99.3 F 97 14 165/91 93 03/16/18 12:29 98.7 F 93 16 157/84 95 Intake and Output 03/16/18 03/16/18 03/17/18 15:59 23:59 07:59 Intake Total 510 / 510 600 / 600 Output Total 550 / 550 1 / 1 800 / 800 Balance -40 / -40 -1 / -1 -200 / -200 Intake: IV Fluids 510 / 510 Azactam 1,000 MG In Water for inj. (sterile) 10 ML @ 300 mls/ hr IVP Q8H [facility] Rx#:[id number] Vancocin 1,750 MG In 0.9 % 500 / 500 Sodium Chloride 500 ML @ 333.3 mls/hr IVPB Q12H [facility] Rx#: [id number] Oral 600 / 600 Output: Urine 550 / 550 800 / 800 Estimated Blood Loss Other: Weight 168.7 kg Blood Glucose* 131 107 196 Patient Weight 03/17/18 23:59 Weight 168.7 kg - Labs CBC & BMP: 03/16/18 01:28 03/16/18 01:28 Labs: Abnormal lab results PT 14.2 Seconds (9.4-12.1) H 03/16/18 01:28 Potassium 3.0 mEq/L (3.5-5.1) L 03/16/18 01:28 Glucose 119 mg/dL (70-105) H 03/16/18 01:28 POC Glucose 109 mg/dL (70-99) H 03/16/18 05:50 Calcium 8.3 mg/dL (8.6-10.3) L 03/16/18 01:28 Phosphorus 2.2 mg/dL (2.7-4.5) L 03/15/18 17:20 AST 55 Units/L (13-39) H 03/15/18 17:20 ALT 67 Units/L (7-52) H 03/15/18 17:20 Lipase 9 Units/L (11-82) L 03/15/18 17:20 Urine Protein 100 mg/dL (Neg-Trace) H 03/15/18 20:59 Urine Ketones 15 mg/dL (Negative) H 03/15/18 20:59 Urine Bilirubin Small (Negative) H 03/15/18 20:59 Consult Discharge Plan - Plan Referrals: NONE,PCP [Primary Care Provider] -
[2018-03-17 08:07] LABS: Basophils % 0.2 %; Hematocrit 38.7 % (37.5-50.1); Hemoglobin 12.8 g/dL (12.9-16.9); Immature Granulocytes % 0.5 % (0-4); Lymphocytes # 1.1 K/mcL (0.6-4.6); Lymphocytes % 10.4 %; Mean Corpuscular HGB Conc 33.1 g/dL (31.6-35.5); Mean Corpuscular Hemoglobin 29.7 pg (28.0-33.3); Mean Corpuscular Volume 89.8 fL (83.0-100.0); Mean Platelet Volume 10.3 fL (9.4-12.4); Monocytes # 0.5 K/mcL (0.0-1.3); Monocytes % 4.6 %; Platelet Count 176 K/mcL (140-400); Red Blood Count 4.31 M/mcL (4.19-5.50); Red Cell Distribution Width 13.4 % (11.5-14.5); Segmented Neutrophils % 84.3 %
[2018-03-17 08:38] LABS: BUN/Creatinine Ratio 13 (6-26); Blood Urea Nitrogen 11 mg/dL (6-20); Calcium 8.8 mg/dL (8.6-10.3); Carbon Dioxide 23 mEq/L (23-29); Chloride 106 mEq/L (98-107); Glucose 216 mg/dL (70-105); Osmolality,Calculated 292 (280-300); Sodium 138 mEq/L (136-145); eGFR For African Americans > 60 (> 60); eGFR For Non-African Americans > 60 (> 60)
[2018-03-17] MEDS: Nicotine 21 MG PATCH.TD24 TD SCH (09:09)
[2018-03-17] MEDS: Multivit/Ca/Min/Fe/FA 1 TAB TABLET PO SCH (09:09)
[2018-03-17] MEDS: Thiamine (B-1) 100 MG TABLET PO SCH (09:09)
[2018-03-17] MEDS: Folic Acid 1 MG TABLET PO SCH (09:09)
[2018-03-17] MEDS: diazePAM 10 MG TABLET PO SCH ×2 (09:10→20:27)
[2018-03-17] MEDS: *HR* LORazepam 2 MG/ML VIAL IVP PRN ×4 (09:35→22:32)
--- NOTE | 2018-03-17 09:48 | Internal Med Progress Note ---
<Letty Nogueiraa - Last Filed: 03/17/18 16:28> Date of Encounter: 03/17/18 Time of Encounter: 09:45 - Assessment and plan (1) Abscess Current Visit: Yes Status: Acute Assessment and plan: S/P incision and drainage of the right hand, volar region abscess. Wound cultures pending but would be inaccurate as he was started on antibiotics Continue antibiotics: aztreonam and vancomycin day 2 Consulted orthopedics, they will consider incision and drainage for hand abscess drainage and intraoperative cultures Continue pain control for pain and NSAIDs to reduce inflammation (2) Benzodiazepine abuse Current Visit: Yes Status: Chronic Assessment and plan: Has history of polydrug use On ativan to prevent alcohol withdrawal Continue Ativan per CIWA protocol (3) Hypertension Current Visit: Yes Status: Chronic Assessment and plan: Blood pressure stable. Continue hydralazine when necessary Avoid beta blockers due to cocaine dependence Qualifiers: Hypertension type: essential hypertension Qualified Code(s): I10 - Essential (primary) hypertension (4) Diabetes mellitus type 2 in obese Current Visit: Yes Status: Chronic Assessment and plan: Patient denies history of diabetic ulcers in the past. His most recent hemoglobin A1c that was 6.9 on 03/08/18. Continue basal and sliding scale insulin Monitor Accu-Cheks ACHS ADA diet Diabetic education (5) Polysubstance abuse Current Visit: Yes Status: Chronic Assessment and plan: Patient with known history of opioid, benzos, barbiturate's, cocaine, THC use Lat use of IV heroin was 5 days ago Continue symptomatic treatment for signs of alcohol withdrawal (6) Hypomagnesemia Current Visit: Yes Status: Acute Assessment and plan: Within low normal, at 2.2 (7) Morbid obesity with BMI of 50.0-59.9, adult Current Visit: No Status: Chronic Assessment and plan: Lifestyle modification Diabetic education Consider outpatient sleep study to eval for RACHEL Low fat, low salt and diabetic diet (8) Tobacco abuse Current Visit: Yes Status: Chronic Assessment and plan: Tobacco cessation discussed to promote wound healing. On nicotine patch during this admission (9) Anxiety Current Visit: Yes Status: Chronic Assessment and plan: Patient reports significant history of anxiety and depression with suicidal ideation in the past. He denies current suicidal ideation He said recently his girlfriend broke up with him so he has been more stressed, says he wants to get better to take care of his two children. (10) Alcohol abuse Current Visit: Yes Status: Chronic Assessment and plan: Most recent alcohol use Friday yesterday. He admits to history of alcohol withdrawal seizures in the past. Continue Ativan per CIWA protocol Continue multivitamins, thiamine, and folate Continue close monitoring and aspiration precautions Chest x-ray shows some increased opacity bilaterally with possible pulmonary edema (11) Hypokalemia Current Visit: Yes Status: Acute Assessment and plan: Resolved, today 4.0 (12) Diastolic CHF, chronic Current Visit: No Status: Chronic Assessment and plan: Echocardiogram 01/25/18 LVEF 60%, mild concentric LVH, moderate LV diastolic dysfunction, mildly dilated right ventricle, no vegetations Patient received sepsis bolus in the ED Continue monitoring for signs of fluid overload Repeat chest x-ray showed some sign of bilateral pulmonary edema, he is not symptomatic at this time (13) Sepsis Current Visit: Yes Status: Acute Assessment and plan: On admission white blood count 13, tachycardia heart rate 107, and right hand abscess is likely source of infection Lactic acid level was 0.9 He received sepsis IVF bolus in the ED Holding further IV fluids due to some pulmonary edema per cxr He is allergic to amoxicillin, penicillin Continue empiric antibiotics, Vanc and aztrenam day 2 Blood and wound cultures pending but may be inaccurate due start of antibiotics prior to culture Most recent echo 01/25/18 was negative for vegetations Has no valve replacement or hardware Continue to monitor would healing Qualifiers: Sepsis type: sepsis due to unspecified organism Qualified Code(s): A41.9 - Sepsis, unspecified organism (14) Hypertensive urgency Current Visit: Yes Status: Resolved Assessment and plan: Hypertensive urgency in the setting of alcohol withdrawal on admission Blood pressure 126/72 this morning Continue hydralazine prn Avoid beta blockers given history of cocaine dependence Continue close monitoring (15) DVT prophylaxis Current Visit: Yes Status: Acute - Subjective Interval history: Mr. Adams was seen at bedside this morning. He presented 2 days ago for right hand abscess ongoing for 4 days and he had been using IV heroin at that region. He also stated that he has not been taking his home medications and does not follow with a PCP. He elicited subjective fever, chills and diarrhea. He also stated he drinks 12 bottles of beer daily. This morning he is sleepy and alludes that to the lack of sleep he has gotten for the past week. He is alert, oriented to person, place and time and responding to questions appropriately. He denied nausea, vomiting, chest pain, shortness of breath, blurry vision or paresthesis. His sensation of the both hands is intact. He is complaining of pain in the right hand. - Constitutional Vitals: Temp Pulse Resp BP Pulse Ox 97.4 F L 94 16 126/72 90 03/17/18 07:31 03/17/18 07:03/17/18 07:03/17/18 07:03/17/18 09:06 General appearance: Present: cooperative, A&O X 3, morbidly obese, no acute distress, answers questions appropriately - Head Head exam: Present: atraumatic, normocephalic - Eye Eye exam: Present: EOMI, sclera anicteric - ENT ENT exam: Present: mucous membranes moist - Neck Neck exam general surgery: Present: full ROM, trachea midline - Respiratory Respiratory exam: Present: decreased breath sounds. Absent: rales, wheezes Additional comments: decreased breath sounds at lower bases - Cardiovascular Cardiovascular exam: Present: +S1, +S2. Absent: JVD - GI/Abdominal GI/Abdominal exam: Present: normal bowel sounds. Absent: distended, firm, soft , tenderness - Extremities Exam Extremities exam: Present: warm. Absent: pedal edema, tenderness Additional comments: surgical bandage on the right hand s/p incision and drainage. Able to move the fingers. - Psychiatric Psychiatric exam: Present: flat affect Additional comments: disinterested - Skin Skin exam: Present: dry, intact, warm Additional comments: sensation of the right hand intact. Internal Medicine: Result - Labs CBC & Chem 7: 03/17/18 07:50 03/17/18 07:50 Labs: Short CBC 03/17/18 Range/Units 07:50 WBC 10.7 (4.3-11.1) K/mcL Hgb 12.8 L (12.9-16.9) g/dL Hct 38.7 (37.5-50.1) % Plt Count 176 (140-400) K/mcL Neutrophils # 9.0 H (1.6-8.9) K/mcL BMP 03/17/18 07:50 Sodium 138 Potassium 4.0 Chloride 106 Carbon Dioxide 23 BUN 11 Creatinine 0.86 Glucose 216 H Calcium 8.8 - ABG Interpretation ABG results: PT/INR, D-dimer PT 14.2 Seconds (9.4-12.1) H 03/16/18 01:28 - VTE Documentation of Mechanical Device: Intermittent pneumatic compression device Consult Discharge Plan - Plan Referrals: NONE,PCP [Primary Care Provider] - <Willian Prince - Last Filed: 03/18/18 00:47> Date of Encounter: 03/18/18 - Assessment and plan (1) Benzodiazepine abuse Current Visit: Yes Status: Chronic (2) DVT prophylaxis Current Visit: Yes Status: Acute (3) Hypertension Current Visit: Yes Status: Chronic Qualifiers: Hypertension type: essential hypertension Qualified Code(s): I10 - Essential (primary) hypertension (4) Diabetes mellitus type 2 in obese Current Visit: Yes Status: Chronic (5) Polysubstance abuse Current Visit: Yes Status: Chronic (6) Hypomagnesemia Current Visit: Yes Status: Acute (7) Morbid obesity with BMI of 50.0-59.9, adult Current Visit: No Status: Chronic (8) Tobacco abuse Current Visit: Yes Status: Chronic (9) Anxiety Current Visit: Yes Status: Chronic (10) Alcohol abuse Current Visit: Yes Status: Chronic (11) Hypokalemia Current Visit: Yes Status: Acute (12) Diastolic CHF, chronic Current Visit: No Status: Chronic (13) Abscess Current Visit: Yes Status: Acute (14) Sepsis Current Visit: Yes Status: Acute Qualifiers: Sepsis type: sepsis due to unspecified organism Qualified Code(s): A41.9 - Sepsis, unspecified organism (15) Hypertensive urgency Current Visit: Yes Status: Resolved - Constitutional Vitals: Temp Pulse Resp BP Pulse Ox 98.8 F 84 16 157/68 94 03/17/18 23:52 03/17/18 23:52 03/17/18 23:52 03/17/18 23:52 03/17/18 23:52 Internal Medicine: Result - Labs CBC & Chem 7: 03/17/18 07:50 03/17/18 07:50 Labs: Short CBC 03/17/18 Range/Units 07:50 WBC 10.7 (4.3-11.1) K/mcL Hgb 12.8 L (12.9-16.9) g/dL Hct 38.7 (37.5-50.1) % Plt Count 176 (140-400) K/mcL Neutrophils # 9.0 H (1.6-8.9) K/mcL BMP 03/17/18 07:50 Sodium 138 Potassium 4.0 Chloride 106 Carbon Dioxide 23 BUN 11 Creatinine 0.86 Glucose 216 H Calcium 8.8 - ABG Interpretation ABG results: PT/INR, D-dimer PT 14.2 Seconds (9.4-12.1) H 03/16/18 01:28 - Attending Attestation I examined this patient and my medical decision-making was reviewed with the Resident Physician. I agree with the documented findings, disposition and treatment plan as described except to the extent set forth below. s/p I&D and antibiotics. On BZD therapy CIWA protocol. He appears less agitated than yesterday. Hand less tender and sensation of hand is preserved and able to move fingers, ROM only limited by pain. CIWA scores still elevated. Will need to continue treatment of etoh withdrawal and also await wound cultures. Patient is not currently septic.
[2018-03-17] MEDS: traMADol 50 MG TABLET PO PRN ×3 (09:54→20:34)
[2018-03-17] MEDS: Thiamine (B-1) 100 MG, Folic Acid 1 MG, MVI, adult with vitamin K 10 ML in 0.9 % Sodi... IVPB SCH (18:09)
[2018-03-17] MEDS: Insulin DETEMIR 100 UNIT/ML X5UNITS SQ SCH (20:27)
[2018-03-18 01:35] LABS: Basophils # 0.1 K/mcL (0.0-0.2); Basophils % 0.6 %; Eosinophils # 0.1 K/mcL (0.0-0.6); Eosinophils % 0.6 %; Hematocrit 35.8 % (37.5-50.1); Hemoglobin 11.8 g/dL (12.9-16.9); Immature Granulocytes % 0.4 % (0-4); Lymphocytes # 2.2 K/mcL (0.6-4.6); Lymphocytes % 24.1 %; Mean Corpuscular Hemoglobin 29.7 pg (28.0-33.3); Mean Corpuscular Volume 90.2 fL (83.0-100.0); Mean Platelet Volume 10.6 fL (9.4-12.4); Monocytes # 0.6 K/mcL (0.0-1.3); Monocytes % 6.9 %; Neutrophils # 6.1 K/mcL (1.6-8.9); Platelet Count 172 K/mcL (140-400); Red Blood Count 3.97 M/mcL (4.19-5.50); Red Cell Distribution Width 13.5 % (11.5-14.5); Segmented Neutrophils % 67.4 %
[2018-03-18 01:53] LABS: BUN/Creatinine Ratio 15 (6-26); Blood Urea Nitrogen 12 mg/dL (6-20); Calcium 8.5 mg/dL (8.6-10.3); Carbon Dioxide 28 mEq/L (23-29); Chloride 106 mEq/L (98-107); Glucose 200 mg/dL (70-105); Osmolality,Calculated 295 (280-300); Potassium 3.5 mEq/L (3.5-5.1); Sodium 140 mEq/L (136-145); eGFR For African Americans > 60 (> 60); eGFR For Non-African Americans > 60 (> 60)
[2018-03-18] MEDS: *HR* Heparin 5,000 UNIT/ML VIAL SQ SCH ×2 (06:30→17:13)
[2018-03-18] MEDS: Aztreonam 1,000 MG in Water for inj. (sterile) 20 ML 10 ML IVP SCH ×3 (06:30→20:07)
[2018-03-18] MEDS: traMADol 50 MG TABLET PO PRN ×2 (06:30→20:08)
[2018-03-18] MEDS: *HR* LORazepam 2 MG/ML VIAL IVP PRN ×5 (06:30→20:09)
[2018-03-18] MEDS: Insulin LISPRO 300 UNITS/3 ML VIAL SQ SCH ×4 (07:34→23:50)
--- NOTE | 2018-03-18 07:42 | Orthopedics Progress Note ---
Date of Encounter: 03/18/18 Time of Encounter: 07:40 - Assessment and Plan (1) Abscess Current Visit: Yes Status: Acute Subjective Interval history: S: Patient is resting in bed comfortably. Expected postoperative pain O: Afebrile on the vital signs are stable Evaluation of the wound show no gross purulent material. Packing changed about the dorsal index metacarpophalangeal joint wound. The volar wrist wound is clean with minimal drainage and improving erythema. [place] drain is pulled. The patient can actively flex and extend all digits. The fingertips are all grossly sensate and well-perfused, and the radial artery pulse is 2+. A: Post I&D of the right upper extremity, improving P: Continue local wound care. Anticipate IV antibiotics for another 24 hours. Motion exercises to reduce the risk of stiffness. Objective Vital signs: Vital Signs Temp Pulse Resp BP Pulse Ox 03/18/18 06:57 98.5 F 88 17 164/110 96 03/18/18 04:09 98.9 F 81 16 150/64 95 03/17/18 23:52 98.8 F 84 16 157/68 94 03/17/18 20:36 98.6 F 71 16 143/63 99 03/17/18 15:13 98.1 F 97 16 123/72 94 03/17/18 12:22 97.7 F 89 16 139/77 93 03/17/18 09:06 90 Intake and Output 03/17/18 03/17/18 03/18/18 15:59 23:59 07:59 Intake Total 1590 / 1590 610 / 610 Output Total 1050 / 1050 1350 / 1350 Balance 1590 / 1590 -440 / -440 -1350 / -1350 Intake: IV Fluids 510 / 510 Azactam 1,000 MG In Water for inj. (sterile) 10 ML @ 300 mls/ hr IVP Q8H JUSTYNA Rx#:[id number] Vancocin 1,750 MG In 0.9 % 500 / 500 Sodium Chloride 500 ML @ 333.3 mls/hr IVPB Q12H JUSTYNA Rx#: [id number] Oral 1080 / 1080 600 / 600 Output: Urine 1050 / 1050 1350 / 1350 Wound Drainage 0 / 0 Right Wrist 0 / 0 Other: Meal Lunch Percent of Meal Consumed 100% Blood Glucose* 141 151 108 - Labs CBC & BMP: 03/18/18 01:17 03/18/18 01:17 Labs: Abnormal lab results RBC 3.97 M/mcL (4.19-5.50) L 03/18/18 01:17 Hgb 11.8 g/dL (12.9-16.9) L 03/18/18 01:17 Hct 35.8 % (37.5-50.1) L 03/18/18 01:17 PT 14.2 Seconds (9.4-12.1) H 03/16/18 01:28 Glucose 200 mg/dL (70-105) H 03/18/18 01:17 POC Glucose 141 mg/dL (70-99) H 03/17/18 11:25 Calcium 8.5 mg/dL (8.6-10.3) L 03/18/18 01:17 Phosphorus 2.2 mg/dL (2.7-4.5) L 03/15/18 17:20 AST 55 Units/L (13-39) H 03/15/18 17:20 ALT 67 Units/L (7-52) H 03/15/18 17:20 Lipase 9 Units/L (11-82) L 03/15/18 17:20 Urine Protein 100 mg/dL (Neg-Trace) H 03/15/18 20:59 Urine Ketones 15 mg/dL (Negative) H 03/15/18 20:59 Urine Bilirubin Small (Negative) H 03/15/18 20:59 - VTE Documentation of Mechanical Device: Intermittent pneumatic compression device Consult Discharge Plan - Plan Referrals: NONE,PCP [Primary Care Provider] -
--- NOTE | 2018-03-18 09:49 | Internal Med Progress Note ---
<Keke Nogueira - Last Filed: 03/18/18 16:03> Date of Encounter: 03/18/18 Time of Encounter: 09:50 - Assessment and plan (1) Abscess Current Visit: Yes Status: Acute Assessment and plan: Wound cultures pending but would be inaccurate as he was started on antibiotics -Sensations intact of hands bilaterally -Continue antibiotics -Consulted orthopedics, s/p incision and drainage two days ago -Continue pain control for pain and NSAIDs to reduce inflammation (2) Alcohol abuse Current Visit: Yes Status: Chronic Assessment and plan: Most recent alcohol use Friday yesterday. -He admits to history of alcohol withdrawal seizures in the past. -Continue Ativan and diazepam per [facility] protocol, last reading 20 -Continue multivitamins, thiamine, and folate -Continue close monitoring and aspiration precautions (3) Benzodiazepine abuse Current Visit: Yes Status: Chronic Assessment and plan: On valium to prevent alcohol withdrawal -Wanted to change it to librium but he has gastrointestinal effects and rashes from it -Continue Ativan and diazepam per [facility] protocol (4) Hypertension Current Visit: Yes Status: Chronic Assessment and plan: Continue hydralazine when necessary - Most likely due to alcohol withdrawal and right hand pain -Will need to add another agent -Avoid beta blockers due to cocaine dependence Qualifiers: Hypertension type: essential hypertension Qualified Code(s): I10 - Essential (primary) hypertension (5) Diabetes mellitus type 2 in obese Current Visit: Yes Status: Chronic Assessment and plan: Patient denies history of diabetic ulcers in the past. -His most recent hemoglobin A1c that was 6.9 on 03/08/18. -Glucose 200 this morning -Continue basal and sliding scale insulin -Monitor Accu-Cheks ACHS -ADA diet -Diabetic education (6) Polysubstance abuse Current Visit: Yes Status: Chronic Assessment and plan: Patient with known history of opioid, benzos, barbiturate's, cocaine, THC use -Continue symptomatic treatment for signs of withdrawal (7) Hypomagnesemia Current Visit: Yes Status: Acute Assessment and plan: Resolved. -Currently stable Mag level 1.6 -Supplement magnesium given 2 days ago -Continue monitoring (8) Morbid obesity with BMI of 50.0-59.9, adult Current Visit: No Status: Chronic Assessment and plan: Lifestyle modification -Diabetic education -Consider outpatient sleep study to eval for RACHEL -Low fat, low salt and diabetic diet (9) Tobacco abuse Current Visit: Yes Status: Chronic Assessment and plan: Tobacco cessation discussed to promote wound healing. -On nicotine patch (10) Anxiety Current Visit: Yes Status: Chronic Assessment and plan: Patient reports significant history of anxiety and depression with suicidal ideation in the past. -He denies current suicidal ideation -He said recently his girlfriend broke up with him so he has been more stressed , says he wants to get better to take care of his two children. (11) Hypokalemia Current Visit: Yes Status: Acute Assessment and plan: Resolved. Potassium 2.9 at admission -3.5 this morning -Received supplement potassium -Mag level within normal low limits (12) Diastolic CHF, chronic Current Visit: No Status: Chronic Assessment and plan: Echocardiogram 01/25/18 LVEF 60%, mild concentric LVH, moderate LV diastolic dysfunction, mildly dilated right ventricle, no vegetations -Patient received IV fluid bolus in the ED -Continue monitoring for signs of fluid overload -No edema in extremities -Chest x-ray findings show mild cardiomegaly with some hazy opacity (13) Sepsis Current Visit: Yes Status: Resolved Assessment and plan: Patient medicine service criteria with psychosis at admission: white blood count 13, tachycardia heart rate 107, and right hand abscess is likely source of infection Lactic acid level was 0.9 He received sepsis IVF bolus in the ED He is allergic to amoxicillin, penicillin Continue empiric antibiotics, Vanc and aztrenam day 3 Blood cultures positive for staph aureus and gram negative rods, awaiting sensitivities Most recent echo 01/25/18 was negative for vegetations Has no valve replacement or hardware Continue to monitor wound healing Qualifiers: Sepsis type: sepsis due to unspecified organism Qualified Code(s): A41.9 - Sepsis, unspecified organism (14) Hypertensive urgency Current Visit: Yes Status: Resolved Assessment and plan: Hypertensive urgency in the setting of alcohol withdrawal -Blood pressure 164/110 this morning -Most likely elevated due to pain and alcohol withdrawal -Continue hydralazine prn -Avoid beta blockers given history of cocaine dependence -Continue close monitoring (15) Diarrhea Current Visit: Yes Status: Acute Assessment and plan: Loose stools for 4 days -Brown in color -Probiotic ordered Qualifiers: Diarrhea type: unspecified type Qualified Code(s): R19.7 - Diarrhea, unspecified (16) DVT prophylaxis Current Visit: Yes Status: Acute Assessment and plan: Heparin subcutaneous BID - Time Spent With Patient Total time spent is greater than 50% in coordination of care (as documented) at patient's floor/unit and/or counseling patient: - Subjective Interval history: Mr. Adams was seen at bedside this morning. He presented 3 days ago for right hand abscess ongoing for 4 days and is s/p incision and drainage of the right hand abscess. Overnight he was agitated and attributes that to pain in his right hand. He is alert, oriented to person, place and time and responding to questions appropriately. He also complained of loose stools. He denied nausea , vomiting, chest pain, shortness of breath, blurry vision or paresthesis. His wound is covered with bandage. His sensation of the both hands is intact. - Constitutional Vitals: Temp Pulse Resp BP Pulse Ox 98.5 F 88 17 164/110 96 03/18/18 06:57 03/18/18 06:57 03/18/18 06:57 03/18/18 06:57 03/18/18 06:57 General appearance: Present: A&O X 3, morbidly obese, no acute distress, answers questions appropriately - Head Head exam: Present: atraumatic, normocephalic - Eye Eye exam: Present: EOMI, sclera anicteric - ENT ENT exam: Present: mucous membranes moist - Neck Neck exam general surgery: Present: full ROM, trachea midline - Respiratory Respiratory exam: Present: CTAB. Absent: accessory muscle use, rales, rhonchi, wheezes - Cardiovascular Cardiovascular exam: Present: diastolic murmur, RRR, +S1, +S2, systolic murmur. Absent: gallop, rubs - GI/Abdominal GI/Abdominal exam: Present: normal bowel sounds, soft, no peritoneal signs. Absent: distended, tenderness - Extremities Exam Extremities exam: Present: warm. Absent: calf tenderness, cyanotic, pedal edema Additional comments: capillary refill intact in all fingers, both hands warm and sensation intact - Neurological Exam Neurological exam: Present: oriented X3, no focal deficits. Absent: pronater drift, facial droop, speech deficit - Psychiatric Psychiatric exam: Present: flat affect Additional comments: somnolent - Skin Skin exam: Present: dry, warm (capillary refill intact in all fingers) Internal Medicine: Result - Labs CBC & Chem 7: 07/11/18 01:17 03/18/18 01:17 Labs: Short CBC 03/18/18 Range/Units 01:17 WBC 9.1 (4.3-11.1) K/mcL Hgb 11.8 L (12.9-16.9) g/dL Hct 35.8 L (37.5-50.1) % Plt Count 172 (140-400) K/mcL Neutrophils # 6.1 (1.6-8.9) K/mcL BMP 03/18/18 01:17 Sodium 140 Potassium 3.5 Chloride 106 Carbon Dioxide 28 BUN 12 Creatinine 0.79 Glucose 200 H Calcium 8.5 L - ABG Interpretation ABG results: PT/INR, D-dimer PT 14.2 Seconds (9.4-12.1) H 03/16/18 01:28 - VTE Documentation of Mechanical Device: Intermittent pneumatic compression device Consult Discharge Plan - Plan Referrals: NONE,PCP [Primary Care Provider] - <Lauro Zuluaga - Last Filed: 03/18/18 22:06> Date of Encounter: 03/18/18 - Assessment and plan (1) Benzodiazepine abuse Current Visit: Yes Status: Chronic (2) DVT prophylaxis Current Visit: Yes Status: Acute (3) Hypertension Current Visit: Yes Status: Chronic Qualifiers: Hypertension type: essential hypertension Qualified Code(s): I10 - Essential (primary) hypertension (4) Diabetes mellitus type 2 in obese Current Visit: Yes Status: Chronic (5) Polysubstance abuse Current Visit: Yes Status: Chronic (6) Hypomagnesemia Current Visit: Yes Status: Acute (7) Morbid obesity with BMI of 50.0-59.9, adult Current Visit: No Status: Chronic (8) Tobacco abuse Current Visit: Yes Status: Chronic (9) Anxiety Current Visit: Yes Status: Chronic (10) Alcohol abuse Current Visit: Yes Status: Chronic (11) Hypokalemia Current Visit: Yes Status: Acute (12) Diastolic CHF, chronic Current Visit: No Status: Chronic (13) Abscess Current Visit: Yes Status: Acute (14) Sepsis Current Visit: Yes Status: Resolved Qualifiers: Sepsis type: sepsis due to unspecified organism Qualified Code(s): A41.9 - Sepsis, unspecified organism (15) Hypertensive urgency Current Visit: Yes Status: Resolved (16) Diarrhea Current Visit: Yes Status: Acute Qualifiers: Diarrhea type: unspecified type Qualified Code(s): R19.7 - Diarrhea, unspecified - Time Spent With Patient Total time spent is greater than 50% in coordination of care (as documented) at patient's floor/unit and/or counseling patient: - Constitutional Vitals: Temp Pulse Resp BP Pulse Ox 98.5 F 101 20 178/80 95 03/18/18 20:03 03/18/18 20:03 03/18/18 20:03 03/18/18 20:03 03/18/18 20:03 Internal Medicine: Result - Labs CBC & Chem 7: 03/18/18 01:17 03/18/18 01:17 Labs: Short CBC 03/18/18 Range/Units 01:17 WBC 9.1 (4.3-11.1) K/mcL Hgb 11.8 L (12.9-16.9) g/dL Hct 35.8 L (37.5-50.1) % Plt Count 172 (140-400) K/mcL Neutrophils # 6.1 (1.6-8.9) K/mcL BMP 03/18/18 01:17 Sodium 140 Potassium 3.5 Chloride 106 Carbon Dioxide 28 BUN 12 Creatinine 0.79 Glucose 200 H Calcium 8.5 L - ABG Interpretation ABG results: PT/INR, D-dimer PT 14.2 Seconds (9.4-12.1) H 03/16/18 01:28 - Attending Attestation I have examined the patient and reviewed the progress note obtained and documented by the resident and I personally participated in the [place] components. and formulation of the plan of care. I have discussed the case and management of the patient's care. Patient has Hand abscess s/p I&D cultures pending at time of examination- Will need to cover to MRSA in anticipation Duration and route of Abx - TBD but most likely will need IV Abx prolonged course and due to IVDA Hx - will eventuially need SNF placement ALso significant ETIH Hx now in withdrawals - CIWA almost 23, received 16 mg ativan and 10 mg diazepam yesterday- continue to monitor closely High risk for DTs Rest of A/P as per resident note
[2018-03-18] MEDS: Folic Acid 1 MG TABLET PO SCH (11:33)
[2018-03-18] MEDS: Nicotine 21 MG PATCH.TD24 TD SCH (11:33)
[2018-03-18] MEDS: Multivit/Ca/Min/Fe/FA 1 TAB TABLET PO SCH (11:33)
[2018-03-18] MEDS: Thiamine (B-1) 100 MG TABLET PO SCH (11:33)
[2018-03-18] MEDS: diazePAM 10 MG TABLET PO SCH ×2 (11:33→20:08)
[2018-03-18] MEDS: Thiamine (B-1) 100 MG, Folic Acid 1 MG, MVI, adult with vitamin K 10 ML in 0.9 % Sodi... IVPB SCH (17:14)
[2018-03-18] MEDS: Lactobacillus 1 EACH CAP.SPRINK PO SCH (20:08)
[2018-03-18] MEDS: Insulin DETEMIR 100 UNIT/ML X5UNITS SQ SCH (20:20)
[2018-03-19] MEDS: traMADol 50 MG TABLET PO PRN (00:06)
[2018-03-19] MEDS: *HR* LORazepam 2 MG/ML VIAL IVP PRN ×7 (00:06→23:13)
[2018-03-19 01:51] LABS: Basophils # 0.1 K/mcL (0.0-0.2); Basophils % 0.6 %; Eosinophils # 0.2 K/mcL (0.0-0.6); Eosinophils % 2.2 %; Hemoglobin 13.2 g/dL (12.9-16.9); Immature Granulocytes % 0.5 % (0-4); Lymphocytes # 2.7 K/mcL (0.6-4.6); Lymphocytes % 30.3 %; Mean Corpuscular HGB Conc 33.8 g/dL (31.6-35.5); Mean Corpuscular Hemoglobin 30.3 pg (28.0-33.3); Mean Corpuscular Volume 89.4 fL (83.0-100.0); Mean Platelet Volume 10.4 fL (9.4-12.4); Monocytes # 0.6 K/mcL (0.0-1.3); Neutrophils # 5.2 K/mcL (1.6-8.9); Platelet Count 190 K/mcL (140-400); Red Blood Count 4.36 M/mcL (4.19-5.50); Red Cell Distribution Width 13.3 % (11.5-14.5); Segmented Neutrophils % 59.4 %
[2018-03-19 02:11] LABS: BUN/Creatinine Ratio 14 (6-26); Blood Urea Nitrogen 11 mg/dL (6-20); Calcium 9.2 mg/dL (8.6-10.3); Carbon Dioxide 31 mEq/L (23-29); Chloride 100 mEq/L (98-107); Glucose 178 mg/dL (70-105); Osmolality,Calculated 290 (280-300); Potassium 3.3 mEq/L (3.5-5.1); Sodium 138 mEq/L (136-145); eGFR For African Americans > 60 (> 60); eGFR For Non-African Americans > 60 (> 60)
[2018-03-19] MEDS: Aztreonam 1,000 MG in Water for inj. (sterile) 20 ML 10 ML IVP SCH ×3 (05:19→13:00)
[2018-03-19] MEDS: *HR* Heparin 5,000 UNIT/ML VIAL SQ SCH ×2 (05:20→16:39)
[2018-03-19] MEDS: Thiamine (B-1) 100 MG TABLET PO SCH (08:53)
[2018-03-19] MEDS: diazePAM 10 MG TABLET PO SCH ×2 (08:53→19:37)
[2018-03-19] MEDS: Potassium Citrate 10 MEQ TABLET.ER PO SCH ×3 (08:53→19:37)
[2018-03-19] MEDS: Insulin LISPRO 300 UNITS/3 ML VIAL SQ SCH ×3 (08:53→16:32)
[2018-03-19] MEDS: Folic Acid 1 MG TABLET PO SCH (08:53)
[2018-03-19] MEDS: Multivit/Ca/Min/Fe/FA 1 TAB TABLET PO SCH (08:53)
[2018-03-19] MEDS: Nicotine 21 MG PATCH.TD24 TD SCH (08:53)
[2018-03-19] MEDS: Lactobacillus 1 EACH CAP.SPRINK PO SCH ×2 (08:53→19:37)
--- NOTE | 2018-03-19 10:22 | Orthopedics Progress Note ---
Date of Encounter: 03/19/18 Time of Encounter: 07:30 - Assessment and Plan (1) Abscess Current Visit: Yes Status: Acute Subjective Interval history: S: Patient is resting in bed comfortably. Expected postoperative pain O: Afebrile on the vital signs are stable Evaluation of the wound show no gross purulent material. Packing pulled from dorsal index metacarpophalangeal joint wound. The volar wrist wound is clean with minimal drainage and mild erythema. The patient can actively flex and extend all digits. The fingertips are all grossly sensate and well-perfused, and the radial artery pulse is 2+. A: Post I&D of the right upper extremity, improving slowly P: Continue daily local wound care, elevation, and antibiotics per the primary team. Motion exercises to reduce the risk of stiffness No plans for surgical debridement. Follow-up in one week in the office for a wound reevaluation or sooner if needed. Objective Vital signs: Vital Signs Temp Pulse Resp BP Pulse Ox 03/19/18 09:30 92 03/19/18 07:39 98.4 F 82 17 142/81 92 03/19/18 00:56 98.3 F 80 16 125/70 92 03/18/18 20:03 98.5 F 101 20 178/80 95 Intake and Output 03/18/18 03/19/18 03/19/18 23:59 07:59 15:59 Intake Total 510 / 510 780 / 780 Output Total 1850 / 1850 1225 / 1225 Balance -1340 / -1340 -445 / -445 Intake: IV Fluids 510 / 510 Azactam 1,000 MG In Water for inj. (sterile) 10 ML @ 300 mls/ hr IVP Q8H JUSTYNA Rx#:[id number] Vancocin 1,750 MG In 0.9 % 500 / 500 Sodium Chloride 500 ML @ 333.3 mls/hr IVPB Q12H JUSTYNA Rx#: [id number] Oral 780 / 780 Output: Urine 1850 / 1850 1225 / 1225 Other: Blood Glucose* 135 94 - Labs CBC & BMP: 03/19/18 01:24 03/19/18 01:24 Labs: Abnormal lab results PT 14.2 Seconds (9.4-12.1) H 03/16/18 01:28 Potassium 3.3 mEq/L (3.5-5.1) L 03/19/18 01:24 Carbon Dioxide 31 mEq/L (23-29) H 03/19/18 01:24 Glucose 178 mg/dL (70-105) H 03/19/18 01:24 POC Glucose 112 mg/dL (70-99) H 03/18/18 16:07 Phosphorus 2.2 mg/dL (2.7-4.5) L 03/15/18 17:20 AST 55 Units/L (13-39) H 03/15/18 17:20 ALT 67 Units/L (7-52) H 03/15/18 17:20 Lipase 9 Units/L (11-82) L 03/15/18 17:20 Urine Protein 100 mg/dL (Neg-Trace) H 03/15/18 20:59 Urine Ketones 15 mg/dL (Negative) H 03/15/18 20:59 Urine Bilirubin Small (Negative) H 03/15/18 20:59 - VTE Documentation of Mechanical Device: Intermittent pneumatic compression device Consult Discharge Plan - Plan Referrals: NONE,PCP [Primary Care Provider] -
--- NOTE | 2018-03-19 10:24 | Internal Med Progress Note ---
<Keke Nogueira - Last Filed: 03/19/18 15:58> Date of Encounter: 03/19/18 Time of Encounter: 01:35 - Assessment and plan (1) Benzodiazepine abuse Current Visit: Yes Status: Chronic Assessment and plan: On valium to prevent alcohol withdrawal -Wanted to change it to librium but he has gastrointestinal effects and rashes from it -Continue Ativan and diazepam per [facility] protocol (2) Hypertension Current Visit: Yes Status: Chronic Assessment and plan: Continue hydralazine when necessary -Most likely due to alcohol withdrawal and right hand pain -Blood pressure stable -Avoid beta blockers due to cocaine dependence Qualifiers: Hypertension type: essential hypertension Qualified Code(s): I10 - Essential (primary) hypertension (3) Diabetes mellitus type 2 in obese Current Visit: Yes Status: Chronic Assessment and plan: Patient denies history of diabetic ulcers in the past. -His most recent hemoglobin A1c that was 6.9 on 03/08/18. -Glucose 192 this morning -Continue basal and sliding scale insulin -Monitor Accu-Cheks ACHS -ADA diet -Diabetic education (4) Polysubstance abuse Current Visit: Yes Status: Chronic Assessment and plan: Patient with known history of opioid, benzos, barbiturate's, cocaine, THC use -Continue symptomatic treatment for signs of withdrawal (5) Hypomagnesemia Current Visit: Yes Status: Acute Assessment and plan: 1.2 this morning - Replaced it with magnesium oxide - Continue monitoring (6) Morbid obesity with BMI of 50.0-59.9, adult Current Visit: No Status: Chronic Assessment and plan: Lifestyle modification -Diabetic education -Consider outpatient sleep study to eval for RACHEL -Low fat, low salt and diabetic diet (7) Tobacco abuse Current Visit: Yes Status: Chronic Assessment and plan: Tobacco cessation discussed to promote wound healing. -On nicotine patch (8) Anxiety Current Visit: Yes Status: Chronic Assessment and plan: Patient reports significant history of anxiety and depression with suicidal ideation in the past. -He denies current suicidal ideation -He said recently his girlfriend broke up with him so he has been more stressed , says he wants to get better to take care of his two children. of -No episodes of recent anxiety (9) Alcohol abuse Current Visit: Yes Status: Chronic Assessment and plan: Most recent alcohol use Friday03/14/18. -He admits to history of alcohol withdrawal seizures in the past. -Continue Ativan and diazepam per [facility] protocol, last reading 19 -Continue multivitamins, thiamine, and folate -Continue close monitoring and aspiration precautions (10) Hypokalemia Current Visit: Yes Status: Resolved Assessment and plan: Resolved. Potassium 2.9 at admission -3.3 this morning -Received supplement potassium this morning -Replaced magnesium (11) Diastolic CHF, chronic Current Visit: No Status: Chronic Assessment and plan: Echocardiogram 01/25/18 LVEF 60%, mild concentric LVH, moderate LV diastolic dysfunction, mildly dilated right ventricle, no vegetations -No evidence for any acute findings -Patient received IV fluid bolus in the ED -Continue monitoring for signs of fluid overload -No edema in extremities -Chest x-ray findings show mild cardiomegaly with some hazy opacity (12) Abscess Current Visit: Yes Status: Acute Assessment and plan: Wound cultures pending but would be inaccurate as he was started on antibiotics -Sensations intact of hands bilaterally -Continue antibiotics, on aztreonam and IV Vancomycin -ID consulted -Consulted orthopedics, s/p incision and drainage two days ago -Continue pain control for pain and NSAIDs to reduce inflammation (13) Sepsis Current Visit: Yes Status: Resolved Assessment and plan: Patient medicine service criteria with psychosis at admission: white blood count 13, tachycardia heart rate 107, and right hand abscess is likely source of infection Lactic acid level was 0.9 He received sepsis IVF bolus in the ED He is allergic to amoxicillin, penicillin Continue empiric antibiotics, Vanc and aztreonam day 3 White count resolved Blood cultures positive for staph aureus and gram negative rods, sensitivities returned ID consulted and awaiting plan of management Most recent echo 01/25/18 was negative for vegetations Has no valve replacement or hardware Continue to monitor wound healing Qualifiers: Sepsis type: sepsis due to unspecified organism Qualified Code(s): A41.9 - Sepsis, unspecified organism (14) Hypertensive urgency Current Visit: Yes Status: Resolved Assessment and plan: Hypertensive urgency in the setting of alcohol withdrawal -Blood pressure 164/84 this morning -Most likely elevated due to pain and alcohol withdrawal -Continue hydralazine prn -Avoid beta blockers given history of cocaine dependence -Continue close monitoring (15) DVT prophylaxis Current Visit: Yes Status: Acute (16) Diarrhea Current Visit: Yes Status: Acute Assessment and plan: Loose stools for 5 days -non watery -Brown in color -Probiotic ordered Qualifiers: Diarrhea type: unspecified type Qualified Code(s): R19.7 - Diarrhea, unspecified - Time Spent With Patient Total time spent is greater than 50% in coordination of care (as documented) at patient's floor/unit and/or counseling patient: - Subjective Interval history: Mr. Adams was seen at bedside this morning. He presented 4 days ago for right hand abscess ongoing for 4 days and is s/p incision and drainage of the right hand abscess. His pain is alleviated this morning. He is more rested this morning and is alert, oriented to person, place and time and responding to questions appropriately. He has ongoing loose stools. He denies nausea, vomiting , chest pain, shortness of breath, blurry vision or paresthesis. His wound is covered with bandage and was replaced this morning by ortho. His sensation of the both hands is intact. - Constitutional Vitals: Temp Pulse Resp BP Pulse Ox 98.4 F 82 17 142/81 92 03/19/18 07:39 03/19/18 07:39 03/19/18 07:39 03/19/18 07:39 03/19/18 09:30 General appearance: Present: A&O X 3, morbidly obese, no acute distress, answers questions appropriately - Head Head exam: Present: atraumatic, normocephalic - Eye Eye exam: Present: EOMI, sclera anicteric - ENT ENT exam: Present: mucous membranes moist - Neck Neck exam general surgery: Present: full ROM, trachea midline - Respiratory Respiratory exam: Present: CTAB. Absent: rales, rhonchi, wheezes - Cardiovascular Cardiovascular exam: Present: RRR, +S1, +S2. Absent: JVD - GI/Abdominal GI/Abdominal exam: Present: normal bowel sounds, soft. Absent: firm, tenderness - Extremities Exam Extremities exam: Present: full ROM, warm. Absent: pedal edema, tenderness - Psychiatric Psychiatric exam: Present: normal affect, normal mood - Skin Skin exam: Present: dry, intact, warm. Absent: erythema Internal Medicine: Result - Labs CBC & Chem 7: 03/19/18 01:24 03/19/18 01:24 Labs: Short CBC 03/19/18 Range/Units 01:24 WBC 8.8 (4.3-11.1) K/mcL Hgb 13.2 (12.9-16.9) g/dL Hct 39.0 (37.5-50.1) % Plt Count 190 (140-400) K/mcL Neutrophils # 5.2 (1.6-8.9) K/mcL BMP 03/19/18 01:24 Sodium 138 Potassium 3.3 L Chloride 100 Carbon Dioxide 31 H BUN 11 Creatinine 0.81 Glucose 178 H Calcium 9.2 - ABG Interpretation ABG results: PT/INR, D-dimer PT 14.2 Seconds (9.4-12.1) H 03/16/18 01:28 - VTE Documentation of Mechanical Device: Intermittent pneumatic compression device Consult Discharge Plan - Plan Referrals: NONE,PCP [Primary Care Provider] - <Lauro Zuluaga - Last Filed: 03/19/18 18:26> Date of Encounter: 03/19/18 - Assessment and plan (1) Benzodiazepine abuse Current Visit: Yes Status: Chronic (2) DVT prophylaxis Current Visit: Yes Status: Acute (3) Hypertension Current Visit: Yes Status: Chronic Qualifiers: Hypertension type: essential hypertension Qualified Code(s): I10 - Essential (primary) hypertension (4) Diabetes mellitus type 2 in obese Current Visit: Yes Status: Chronic (5) Polysubstance abuse Current Visit: Yes Status: Chronic (6) Hypomagnesemia Current Visit: Yes Status: Acute (7) Morbid obesity with BMI of 50.0-59.9, adult Current Visit: No Status: Chronic (8) Tobacco abuse Current Visit: Yes Status: Chronic (9) Anxiety Current Visit: Yes Status: Chronic (10) Alcohol abuse Current Visit: Yes Status: Chronic (11) Hypokalemia Current Visit: Yes Status: Resolved (12) Diastolic CHF, chronic Current Visit: No Status: Chronic (13) Abscess Current Visit: Yes Status: Acute (14) Sepsis Current Visit: Yes Status: Resolved Qualifiers: Sepsis type: sepsis due to unspecified organism Qualified Code(s): A41.9 - Sepsis, unspecified organism (15) Hypertensive urgency Current Visit: Yes Status: Resolved (16) Diarrhea Current Visit: Yes Status: Acute Qualifiers: Diarrhea type: unspecified type Qualified Code(s): R19.7 - Diarrhea, unspecified - Time Spent With Patient Total time spent is greater than 50% in coordination of care (as documented) at patient's floor/unit and/or counseling patient: - Constitutional Vitals: Temp Pulse Resp BP Pulse Ox 98.4 F 95 19 174/82 93 03/19/18 16:05 03/19/18 16:05 03/19/18 16:05 03/19/18 16:05 03/19/18 16:05 Internal Medicine: Result - Labs CBC & Chem 7: 03/19/18 01:24 03/19/18 01:24 Labs: Short CBC 03/19/18 Range/Units 01:24 WBC 8.8 (4.3-11.1) K/mcL Hgb 13.2 (12.9-16.9) g/dL Hct 39.0 (37.5-50.1) % Plt Count 190 (140-400) K/mcL Neutrophils # 5.2 (1.6-8.9) K/mcL BMP 03/19/18 01:24 Sodium 138 Potassium 3.3 L Chloride 100 Carbon Dioxide 31 H BUN 11 Creatinine 0.81 Glucose 178 H Calcium 9.2 - ABG Interpretation ABG results: PT/INR, D-dimer PT 14.2 Seconds (9.4-12.1) H 03/16/18 01:28 - Attending Attestation I saw and evaluated the patient at bedside. I have reviewed the progress note obtained and documented by the resident and personally participated in the moreno components. I have discussed the case and management of the patient's care. I agree with the findings and plan of care.The following comments revise or confirm relevant moreno components of their note MRSA hand abscess Plus GNR Bactrim and luoroquinolones possible Abx if oral is desired- unlikely given extent of injury and iVDA Await further recs from gen Surgery and ID Suspect difficult placement
[2018-03-19 11:30] LABS: Magnesium 1.2 mg/dL (1.6-2.6); Phosphorous 3.2 mg/dL (2.7-4.5)
[2018-03-19] MEDS: Ibuprofen 600 MG TABLET PO SCH (13:00)
--- NOTE | 2018-03-19 13:24 | Infectious Disease Consult ---
Date of Encounter: 03/19/18 Time of Encounter: 11:55 Assessment and Plan (1) Sepsis Status: Resolved Assessment and plan: The patient had to search criteria on admission. Likely secondary to right hand abscess and cellulitis. Resolved. White blood cell count has normalized. Tachycardia has resolved. Blood cultures obtained March 15 are no growth to date 2 sets. Qualifiers: Sepsis type: sepsis due to unspecified organism Qualified Code(s): A41.9 - Sepsis, unspecified organism (2) Abscess Status: Acute Assessment and plan: Location: Right hand overlying the second MCP joint and volar aspect of the right wrist. Causative organism: MRSA and Pantoea agglomerans. Etiology: Likely secondary to IV drug use. ET of the right upper extremity showed a fluid collection overlying the second MCP joint consistent with abscess. It also showed a volar soft tissue fluid collection at the distal radius consistent with abscess. There was no definitive osteo-myelitis. There are also findings consistent with cellulitis. Consulted. Status post incision and drainage with irrigation and debridement of the right dorsal hand abscess to the index finger MCP joint and right volar right wrist abscess. Operative note reviewed. Purulence noted Intra-Op. Intra -Op cultures are positive for MRSA and P. agglomerans. Spoke with Dr. Yoo regarding his findings Intra-Op. He states that the abscess overlying the second MCP joint appeared superficial. He states that the right wrist abscess did not appear to penetrate the fascia. There was no evidence of osteomyelitis. No inflammatory markers have been checked. Continue wound care and activity instructions as outlined by the orthopedics team. Check ESR and CRP. Continue vancomycin IV. Pharmacy to dose. Goal trough proximally 15. The patient's Intra-Op was little elevated this morning and 21, so we will need to be diligent in monitoring his renal function and repeat a trough per the pharmacy team. Discontinue aztreonam. Start Levaquin 750 mg IV daily. Duration of treatment depends on the clinical picture, but can likely switch to PO Bactrim and Levaquin when ready for discharge. Monitor renal function and for drug toxicity and dose adjust antibiotics. (3) Hypokalemia Status: Resolved (4) Prediabetes Status: Acute Assessment and plan: Patient reports a history of prediabetes. States he is not currently on any treatment. Blood sugars continue to run very high. Check hemoglobin A1c. Recommend aggressive glucose monitoring and control to promote wound healing and prevent reinfection. Further workup and management per the primary team. (5) Alcohol abuse Status: Chronic Assessment and plan: Patient reports that he drinks 12 beers daily. CIWA protocol per the primary team. (6) Polysubstance abuse Status: Chronic Assessment and plan: She reports using IV heroin daily for the past month. HIV and hepatitis B and C. (7) Tobacco abuse Status: Chronic (8) Morbid obesity with BMI of 50.0-59.9, adult Status: Chronic (9) Diastolic CHF, chronic Status: Chronic Infectious Disease HPI - Data of Consult Patient: new to practice Consult date: 03/19/18 Requesting Physician: Paresh Zuluaga Primary Care Provider: PCP NONE - Consult Narrative Reason for consult: Right hand abscess History of present illness: Mr. Adams is a 47 year old male with a past medical history of prediabetes, hypertension, depression, alcoholism, and IV drug use. The patient was admitted to the hospital March 15 for right hand abscess and alcohol withdrawal. We are consulted March 19 for further recommendations for right hand abscess. Briefly, the patient is a 47-year-old male with past medical history as stated above. The patient presented to the emergency department with onset of a right hand abscess that started last Friday. He states his symptoms progressed over the weekend so he presented to the ER on Friday. Upon arrival, the patient is tachycardic and had leukocytosis. Lactic acid and kidney function were normal. His AST and ALTs are mildly elevated. Troponin was negative. Urinalysis was negative. He had a right upper extremity CT scan that showed an abscess overlying the second carpophalangeal joint and a volar soft tissue fluid collection at the distal radius consistent with abscess. There is no definitive osteomyelitis, but there were findings consistent with cellulitis. Blood cultures were obtained 2 sets are no growth to date. He was started empirically on IV vancomycin and IV aztreonam and admitted to the hospital for further evaluation. Since admission, the patient's white blood cell count has normalized. He has remained afebrile. His tachycardia has resolved. On March 16, orthopedics was consult and took the patient to the OR for incision, drainage, irrigation, and debridement of the right dorsal hand abscess dorsal to the index metacarpophalangeal joint and right volar wrist abscess. Operative cultures were obtained and are positive for MRSA and Currently, the patient is on IV Vanc and Aztreonam. We've been asked to evaluate and make further recommendations. During my exam today, the patient endorses the history as stated above. He reports onset of fluid collection to the dorsal aspect of the right hand and volar aspect of the right wrist, but of which are IV heroine injection sites. He states the symptoms progressed over the weekend and he came to the ER. He reports fevers, chills, or rigors. Reports some shortness of breath, but denies chest pain or cough. Reports nausea, vomiting, diarrhea, and poor appetite. Reports pain in the right hand and lower back. Denies oral thrush or skin lesions. The patient states he is homeless. He does not work. He smokes about half a pack of cigarettes per day. He reports using IV heroine for the past month. He states he typically drinks 12 beers daily, sometimes more. He denies any recent travel. Denies prolonged exposure to water. Denies animal exposure. Denies known infectious history. CC: Paresh Zuluaga Past Med Surg Social Fam HX - Past Medical History Attestation: Yes The following information was validated with the patient. Source: patient, old records reviewed, nursing notes reviewed Medical history: diabetes (Pre-diabetes), hypertension Additional medical history: Cellulitis Psychiatric history: depression - Past Surgical History Surgical History: no surgical history Additional surgical history: n/a - Social History Smoking Status: Current every day smoker Packs per day: 2 Smokeless Tobacco Status: No Alcohol use: heavy (up to 24 beers daily), recent Drug use: opiates, marijuana, prescription drug abuse Occupational status: unemployed Current living situation: Homeless Activity Level: Independent ambulation Recent Out of Country Travel Within the Last 8 Weeks: No Exposure or Possible Exposure to Illness During Travel: No - Family History Father Living Status: Age at : 53 Cause of : ALCOHOLISM Hx Family Cardiac Disorders: Yes ([place] in 50s) Mother Living Status: Hx Family Cardiac Disorders: Yes ([place] in 50s) Infectious Disease-CN:Meds No Known Home Drugs 03/16/18 [History] 3 Allergy/AdvReac Type Severity Reaction Status Date / Time Amoxicillin Allergy Hives Verified 03/08/18 09:27 Penicillins Allergy Hives Verified 03/08/18 09:27 quetiapine [From Seroquel] Allergy Hives Verified 03/08/18 09:27 chlordiazepoxide AdvReac Gastrointestinal Verified 03/08/18 09:27 [From Librium] Upset All systems: reviewed and no additional remarkable complaints except as stated Exam - Constitutional Vitals: Temp Pulse Resp BP Pulse Ox 98.6 F 90 18 164/88 94 03/19/18 12:13 03/19/18 12:13 03/19/18 12:13 03/19/18 12:13 03/19/18 12:13 General appearance: cooperative, morbidly obese, no acute distress - Head Head exam: Present: atraumatic, normal inspection, normocephalic - Eye Eye exam: Present: EOMI, normal appearance, PERRL Pupils: Present: normal accommodation - ENT ENT exam: Present: mucous membranes moist - Neck Neck exam: Present: normal inspection - Respiratory Respiratory exam: Present: rhonchi (Coarse, throughout). Absent: rales, respiratory distress, wheezes - Cardiovascular Cardiovascular exam: Present: RRR, +S1, +S2 - GI/Abdominal GI/Abdominal exam: Present: distended (obese), normal bowel sounds, soft. Absent: tenderness - Extremities Exam Extremities exam: Present: joint swelling (Right wrist, right MCP joint.), tenderness (Right hand). Absent: pedal edema - Expanded Upper Extremity Exam Hand L/R front image: 1 - Right wrist abscess site s/p I & D with sutures intact. Areas of wound dehiscence noted. Mild erythema noted. Seropurulent drainage noted. Hand L/R back image: 1 - Abscess site overlying the 1st MCP joint with seropurulent drainage. Mild edema, no surrounding erythema. - Neurological Exam Neurological exam: Present: alert, oriented X3, no focal deficits - Psychiatric Psychiatric exam: Present: normal affect, normal mood - Skin Skin exam: Present: dry, intact, normal color, warm Infectious Disease CN: Results - Labs CBC & Chem 7: 03/20/18 00:59 03/20/18 00:59 Cultures: Cultures 03/16/18 23:07 Wound Culture - Preliminary Right Arm Methicillin Resistant S.aureus Gram Negative Marcus - VTE Documentation of Mechanical Device: Intermittent pneumatic compression device Consult Discharge Plan - Plan Referrals: NONE,PCP [Primary Care Provider] - - Attending Attestation I examined this patient and my medical decision-making was reviewed with the Resident Physician. I agree with the documented findings, disposition and treatment plan as described except to the extent set forth below. This is an addendum to original report dictated by Genevieve Chris CNP. Please refer to Genevieve's note for full details. Patient is a 47-year-old gentleman with past medical history mentioned below who has history of IV drug use, morbid obesity and depression and EtOH abuse came in with right hand abscess. Patient was taken for I&D by Dr. Yoo. I spoke with Dr. Yoo and he tells me the the abscesses were not deep did not affect the tenderness, did not penetrate the fascia and there is no visible bone. Intra-Op cultures grew MRSA and pantoea agglomerans. Asked to evaluate the patient's make further recommendations. Physical exam shows no heart murmur, no conjunctival hemorrhage, no endocarditis stigmata on the skin. Patient was jittery and I was concerned for withdrawals. I spoke with nursing staff and they said they were about to go and and check his CIWA Assessment and plan: Sepsis Abscess of the right hand and right wrist causative organism MRSA susceptible to Bactrim and doxycycline and pantoea agglomerans that is pansensitive. There is no tendinitis or myositis or osteomyelitis. Infection appears to be superficial. IV drug use Depression Penicillin allergy Recommendations: Continue current antibiotics for now. After discussion with orthopedics, decided to switch him to oral antibiotics on discharge because he is high risk to send home with IV antibiotics and on opening the patient is a long us to do placement. Plus the fact that the infection is superficial. Check HIV Check hepatitis profile On discharge consider Doxy plus Levaquin or Bactrim plus Levaquin. Duration of treatment 2 weeks
[2018-03-19 16:10] LABS: HIV-1&2 Antibody & p24 Ag Nonreactive (Nonreactive); Hepatitis B Surface Antigen Nonreactive (Nonreactive)
[2018-03-19] MEDS: Levofloxacin 750 MG/150 ML 750 MG/150 ML BAG IVPB SCH (16:40)
[2018-03-19] MEDS ORDERED: Ketorolac 15 MG/ML VIAL IVP ONE (18:37)
[2018-03-19] MEDS: Insulin DETEMIR 100 UNIT/ML X5UNITS SQ SCH (20:58)
[2018-03-20] MEDS ORDERED: *HR* FentaNYL (PF) 100 MCG/2 ML VIAL IVP ONE (00:15)
[2018-03-20] MEDS: *HR* LORazepam 2 MG/ML VIAL IVP PRN ×5 (00:42→20:18)
[2018-03-20 01:13] LABS: Basophils # 0.1 K/mcL (0.0-0.2); Basophils % 0.7 %; Eosinophils # 0.2 K/mcL (0.0-0.6); Eosinophils % 2.9 %; Hematocrit 39.3 % (37.5-50.1); Hemoglobin 13.8 g/dL (12.9-16.9); Immature Granulocytes % 0.7 % (0-4); Lymphocytes # 2.3 K/mcL (0.6-4.6); Lymphocytes % 27.9 %; Mean Corpuscular HGB Conc 35.1 g/dL (31.6-35.5); Mean Corpuscular Hemoglobin 30.6 pg (28.0-33.3); Mean Corpuscular Volume 87.1 fL (83.0-100.0); Mean Platelet Volume 10.2 fL (9.4-12.4); Monocytes # 0.6 K/mcL (0.0-1.3); Monocytes % 7.3 %; Platelet Count 214 K/mcL (140-400); Red Blood Count 4.51 M/mcL (4.19-5.50); Red Cell Distribution Width 13.2 % (11.5-14.5); Segmented Neutrophils % 60.5 %
[2018-03-20 01:41] LABS: Alanine Aminotransferase 61 Units/L (7-52); Albumin 3.8 g/dL (3.5-5.7); Albumin/Globulin Ratio 1.1 (1.1-2.2); Alkaline Phosphatase 66 Units/L (34-104); Aspartate Amino Transferase 39 Units/L (13-39); BUN/Creatinine Ratio 18 (6-26); Bilirubin,Total 0.3 mg/dL (0.3-1.0); Blood Urea Nitrogen 14 mg/dL (6-20); Carbon Dioxide 30 mEq/L (23-29); Chloride 98 mEq/L (98-107); Globulin 3.4 g/dL (2.4-3.5); Glucose 179 mg/dL (70-105); Magnesium 1.4 mg/dL (1.6-2.6); Osmolality,Calculated 287 (280-300); Phosphorous 3.7 mg/dL (2.7-4.5); Potassium 3.4 mEq/L (3.5-5.1); Sodium 136 mEq/L (136-145); Total Protein 7.2 g/dL (6.4-8.9); eGFR For African Americans > 60 (> 60); eGFR For Non-African Americans > 60 (> 60)
[2018-03-20 03:34] LABS: Hepatitis A Antibody IgM Nonreactive (Nonreactive); Hepatitis B Core IgM Nonreactive (Nonreactive)
[2018-03-20 03:38] LABS: Hepatitis C Virus Antibody Reactive (Nonreactive)
[2018-03-20] MEDS: *HR* Heparin 5,000 UNIT/ML VIAL SQ SCH ×2 (06:09→16:12)
--- NOTE | 2018-03-20 07:14 | Orthopedics Progress Note ---
Date of Encounter: 03/20/18 Time of Encounter: 07:12 - Assessment and Plan (1) Abscess Current Visit: Yes Status: Acute Subjective Interval history: S: Patient is resting in bed comfortably. Expected postoperative pain O: Afebrile on the vital signs are stable Evaluation of the wound show no gross purulent material. Dorsal hand wound clean with no purulence. The volar wrist wound is clean with no drainage and mild improving erythema. The patient can actively flex and extend all digits. The fingertips are all grossly sensate and well-perfused, and the radial artery pulse is 2+. A: Post I&D of the right upper extremity, improving slowly P: Continue daily local wound care, elevation, and antibiotics per ID. Motion exercises to reduce the risk of stiffness Orthopedically stable for discharge. Follow-up in one week in the office for a wound reevaluation or sooner if needed. Objective Vital signs: Vital Signs Temp Pulse Resp BP Pulse Ox 03/19/18 23:04 97.6 F 92 18 165/91 97 03/19/18 18:24 97.9 F 85 16 163/90 96 03/19/18 16:05 98.4 F 95 19 174/82 93 03/19/18 12:13 98.6 F 90 18 164/88 94 03/19/18 09:30 92 03/19/18 07:39 98.4 F 82 17 142/81 92 Intake and Output 03/19/18 03/19/18 03/20/18 15:59 23:59 07:59 Intake Total 1000 / 1000 150 / 150 Output Total 500 / 500 1650 / 1650 Balance -500 / -500 -650 / -650 150 / 150 Intake: IV Fluids 150 / 150 Vancocin 1,750 MG In 0.9 % 150 / 150 Sodium Chloride 500 ML @ 333.3 mls/hr IVPB Q12H JUSTYNA Rx#: [id number] Oral 1000 / 1000 Output: Urine 500 / 500 1650 / 1650 Other: Meal Lunch Dinner Percent of Meal Consumed 100% 100% # Voids 1 Blood Glucose* 192 175 - Labs CBC & BMP: 03/20/18 00:59 03/20/18 00:59 Labs: Abnormal lab results ESR 55 mm/hr (0-10) H 03/19/18 14:53 PT 14.2 Seconds (9.4-12.1) H 03/16/18 01:28 Potassium 3.4 mEq/L (3.5-5.1) L 03/20/18 00:59 Carbon Dioxide 30 mEq/L (23-29) H 03/20/18 00:59 Glucose 179 mg/dL (70-105) H 03/20/18 00:59 POC Glucose 175 mg/dL (70-99) H 03/19/18 19:58 Magnesium 1.4 mg/dL (1.6-2.6) L 03/20/18 00:59 ALT 61 Units/L (7-52) H 03/20/18 00:59 Lipase 9 Units/L (11-82) L 03/15/18 17:20 Urine Protein 100 mg/dL (Neg-Trace) H 03/15/18 20:59 Urine Ketones 15 mg/dL (Negative) H 03/15/18 20:59 Urine Bilirubin Small (Negative) H 03/15/18 20:59 Hepatitis C Ab Screen Reactive (Nonreactive) H 03/19/18 14:53 - VTE Documentation of Mechanical Device: Intermittent pneumatic compression device Consult Discharge Plan - Plan Referrals: NONE,PCP [Primary Care Provider] -
[2018-03-20 08:16] LABS: Estimated Average Glucose 148 mg/dl; Hemoglobin A1C 6.8 %
[2018-03-20] MEDS: Insulin LISPRO 300 UNITS/3 ML VIAL SQ SCH ×3 (09:04→17:51)
[2018-03-20] MEDS: Nicotine 21 MG PATCH.TD24 TD SCH (09:04)
[2018-03-20] MEDS: Multivit/Ca/Min/Fe/FA 1 TAB TABLET PO SCH (09:04)
[2018-03-20] MEDS: diazePAM 10 MG TABLET PO SCH ×2 (09:04→20:27)
[2018-03-20] MEDS: Thiamine (B-1) 100 MG TABLET PO SCH (09:05)
[2018-03-20] MEDS: Lactobacillus 1 EACH CAP.SPRINK PO SCH ×2 (09:05→20:18)
[2018-03-20] MEDS: Magnesium Oxide 400 MG TABLET PO SCH (09:05)
[2018-03-20] MEDS: Folic Acid 1 MG TABLET PO SCH (09:05)
[2018-03-20] MEDS: Potassium Citrate 10 MEQ TABLET.ER PO SCH ×3 (09:05→20:18)
--- NOTE | 2018-03-20 09:37 | Infectious Disease Progress No ---
Date of Encounter: 03/20/18 Time of Encounter: 09:34 - Assessment and Plan (1) Sepsis Current Visit: Yes Status: Resolved The patient had to search criteria on admission. Likely secondary to right hand abscess and cellulitis. Resolved. White blood cell count has normalized. Tachycardia has resolved. Blood cultures obtained March 15 are negative 2 sets. Qualifiers: Qualified Code(s): A41.9 - Sepsis, unspecified organism (2) Abscess Current Visit: Yes Status: Acute Location: Right hand overlying the second MCP joint and volar aspect of the right wrist. Causative organism: MRSA and Pantoea agglomerans. Etiology: Likely secondary to IV drug use. CT of the right upper extremity showed a fluid collection overlying the second MCP joint consistent with abscess. It also showed a volar soft tissue fluid collection at the distal radius consistent with abscess. There was no definitive osteo-myelitis. There are also findings consistent with cellulitis. Consulted. Status post incision and drainage with irrigation and debridement of the right dorsal hand abscess to the index finger MCP joint and right volar right wrist abscess. Operative note reviewed. Purulence noted Intra-Op. Intra -Op cultures are positive for MRSA and P. agglomerans. Spoke with Dr. Yoo regarding his findings Intra-Op. He states that the abscess overlying the second MCP joint appeared superficial. He states that the right wrist abscess did not appear to penetrate the fascia. There was no evidence of osteomyelitis. No inflammatory markers have been checked. Continue wound care and activity instructions as outlined by the orthopedics team. ESR is mildly elevated. CRP is normal. Continue vancomycin IV. Pharmacy to dose. Goal trough proximally 15. The patient's Intra-Op was little elevated, so we will need to be diligent in monitoring his renal function and repeat a trough per the pharmacy team. Continue Levaquin 750 mg IV daily. Nursing notes revealed the patient has been noncompliant with his IV antibiotics due to the site of his IV and his inability to sleep with his arm straight. I offered him the opportunity to go ahead and switch his antibiotics to the by mouth form, but he has declined and states he would like to continue his IV antibiotics while here. Educated him on the importance of taking his medications as prescribed in order to optimize his treatment plan. Duration of treatment depends on the clinical picture. Will decide IV vs. PO based on clinical picture. Monitor renal function and for drug toxicity and dose adjust antibiotics. (3) Hypokalemia Current Visit: Yes Status: Resolved (4) Prediabetes Current Visit: No Status: Acute Patient reports a history of prediabetes. States he is not currently on any treatment. Blood sugars continue to run very high. Hemoglobin A1c elevated at 6.8. Recommend aggressive glucose monitoring and control to promote wound healing and prevent reinfection. Further workup and management per the primary team. (5) Alcohol abuse Current Visit: Yes Status: Chronic Patient reports that he drinks 12 beers daily. CIWA protocol per the primary team. (6) Polysubstance abuse Current Visit: Yes Status: Chronic She reports using IV heroin daily for the past month. HIV nonreactive. Hepatitis C antibody positive. (7) Tobacco abuse Current Visit: Yes Status: Chronic (8) Morbid obesity with BMI of 50.0-59.9, adult Current Visit: No Status: Chronic (9) Diastolic CHF, chronic Current Visit: No Status: Chronic (10) Hepatitis C antibody positive in blood Current Visit: Yes Status: Acute Recommend referral to gastroenterology as an outpatient. - Subjective Interval history: Patient seen and examined sitting up on the side of the bed eating breakfast. No acute events noted overnight. Patient continues to report pain at the surgical site. Denies fevers or chills or rigors. Denies chest pain or shortness of breath. Does report a dry hacking cough. Denies nausea or vomiting. Reports one loose stool this morning. Denies abdominal pain or urinary complaints. Denies appetite changes. Denies oral thrush or new skin lesions. Infect Dis PN-Objective Data - Labs CBC & Chem 7: 03/20/18 00:59 03/20/18 00:59 Labs: Laboratory Results - last 24 hr 03/18/18 03/19/18 03/19/18 20:11 07:43 11:02 WBC RBC Hgb Hct MCV MCH MCHC RDW Plt Count MPV Immature Gran % Seg Neutrophils % Lymphocytes % Monocytes % Eosinophils % Basophils % Neutrophils # Lymphocytes # Monocytes # Eosinophils # Basophils # ESR Sodium Potassium Chloride Carbon Dioxide BUN Creatinine Est GFR ( Amer) Est GFR (Non-Af Amer) BUN/Creatinine Ratio Glucose POC Glucose 135 H 94 Est Mean Plasma Glucose Hemoglobin A1c Calculated Osmolality Calcium Phosphorus Magnesium Total Bilirubin AST ALT Alkaline Phosphatase C-Reactive Protein Serum Total Protein Albumin Globulin Albumin/Globulin Ratio Vancomycin Trough 21 H Hepatitis A IgM Ab Hep Bs Antigen Hep B Core IgM Ab Hepatitis C Ab Screen HIV Ag/Ab Combo Qual 03/19/18 03/19/18 03/19/18 11:02 12:14 14:53 WBC RBC Hgb Hct MCV MCH MCHC RDW Plt Count MPV Immature Gran % Seg Neutrophils % Lymphocytes % Monocytes % Eosinophils % Basophils % Neutrophils # Lymphocytes # Monocytes # Eosinophils # Basophils # ESR 55 H Sodium Potassium Chloride Carbon Dioxide BUN Creatinine Est GFR ( Amer) Est GFR (Non-Af Amer) BUN/Creatinine Ratio Glucose POC Glucose 192 H Est Mean Plasma Glucose Hemoglobin A1c Calculated Osmolality Calcium Phosphorus 3.2 Magnesium 1.2 L Total Bilirubin AST ALT Alkaline Phosphatase C-Reactive Protein Serum Total Protein Albumin Globulin Albumin/Globulin Ratio Vancomycin Trough Hepatitis A IgM Ab Hep Bs Antigen Hep B Core IgM Ab Hepatitis C Ab Screen HIV Ag/Ab Combo Qual 03/19/18 03/19/18 03/19/18 14:53 14:53 19:58 WBC RBC Hgb Hct MCV MCH MCHC RDW Plt Count MPV Immature Gran % Seg Neutrophils % Lymphocytes % Monocytes % Eosinophils % Basophils % Neutrophils # Lymphocytes # Monocytes # Eosinophils # Basophils # ESR Sodium Potassium Chloride Carbon Dioxide BUN Creatinine Est GFR ( Amer) Est GFR (Non-Af Amer) BUN/Creatinine Ratio Glucose POC Glucose 175 H Est Mean Plasma Glucose Hemoglobin A1c Calculated Osmolality Calcium Phosphorus Magnesium Total Bilirubin AST ALT Alkaline Phosphatase C-Reactive Protein 9 Serum Total Protein Albumin Globulin Albumin/Globulin Ratio Vancomycin Trough Hepatitis A IgM Ab Nonreactive Hep Bs Antigen Nonreactive Hep B Core IgM Ab Nonreactive Hepatitis C Ab Screen Reactive H HIV Ag/Ab Combo Qual Nonreactive 03/19/18 03/20/18 03/20/18 22:46 00:59 00:59 WBC 8.3 RBC 4.51 Hgb 13.8 Hct 39.3 MCV 87.1 MCH 30.6 MCHC 35.1 RDW 13.2 Plt Count 214 MPV 10.2 Immature Gran % 0.7 Seg Neutrophils % 60.5 Lymphocytes % 27.9 Monocytes % 7.3 Eosinophils % 2.9 Basophils % 0.7 Neutrophils # 5.0 Lymphocytes # 2.3 Monocytes # 0.6 Eosinophils # 0.2 Basophils # 0.1 ESR Sodium 136 Potassium 3.4 L Chloride 98 Carbon Dioxide 30 H BUN 14 Creatinine 0.76 Est GFR ( Amer) > 60 Est GFR (Non-Af Amer) > 60 BUN/Creatinine Ratio 18 Glucose 179 H POC Glucose Est Mean Plasma Glucose Hemoglobin A1c Calculated Osmolality 287 Calcium 10.0 Phosphorus 3.7 Magnesium 1.4 L Total Bilirubin 0.3 AST 39 ALT 61 H Alkaline Phosphatase 66 C-Reactive Protein Serum Total Protein 7.2 Albumin 3.8 Globulin 3.4 Albumin/Globulin Ratio 1.1 Vancomycin Trough 5 Hepatitis A IgM Ab Hep Bs Antigen Hep B Core IgM Ab Hepatitis C Ab Screen HIV Ag/Ab Combo Qual 03/20/18 01:00 WBC RBC Hgb Hct MCV MCH MCHC RDW Plt Count MPV Immature Gran % Seg Neutrophils % Lymphocytes % Monocytes % Eosinophils % Basophils % Neutrophils # Lymphocytes # Monocytes # Eosinophils # Basophils # ESR Sodium Potassium Chloride Carbon Dioxide BUN Creatinine Est GFR ( Amer) Est GFR (Non-Af Amer) BUN/Creatinine Ratio Glucose POC Glucose Est Mean Plasma Glucose 148 Hemoglobin A1c 6.8 H Calculated Osmolality Calcium Phosphorus Magnesium Total Bilirubin AST ALT Alkaline Phosphatase C-Reactive Protein Serum Total Protein Albumin Globulin Albumin/Globulin Ratio Vancomycin Trough Hepatitis A IgM Ab Hep Bs Antigen Hep B Core IgM Ab Hepatitis C Ab Screen HIV Ag/Ab Combo Qual Cultures: Cultures 03/16/18 23:07 Wound Culture - Final Right Arm Methicillin Resistant S.aureus Pantoea agglomerans Serology 03/19/18 Range/Units 14:53 Hepatitis A IgM Ab Nonreactive (Nonreactive) Hep Bs Antigen Nonreactive (Nonreactive) Hep B Core IgM Ab Nonreactive (Nonreactive) Hepatitis C Ab Screen Reactive H (Nonreactive) HIV Ag/Ab Combo Qual Nonreactive (Nonreactive) Exam - Constitutional Vitals: Temp Pulse Resp BP Pulse Ox 97.9 F 97 16 151/87 96 03/20/18 06:35 03/20/18 06:35 03/20/18 06:35 03/20/18 06:35 03/20/18 09:00 General appearance: cooperative, morbidly obese, no acute distress - Head Head exam: Present: atraumatic, normal inspection, normocephalic - Eye Eye exam: Present: EOMI, normal appearance, PERRL Pupils: Present: normal accommodation - ENT ENT exam: Present: mucous membranes moist - Neck Neck exam: Present: normal inspection - Respiratory Respiratory exam: Present: CTAB. Absent: rales, respiratory distress, rhonchi, wheezes - Cardiovascular Cardiovascular exam: Present: RRR, +S1, +S2 - GI/Abdominal GI/Abdominal exam: Present: distended (Obese), normal bowel sounds, soft. Absent: tenderness - Extremities Exam Extremities exam: Present: tenderness (Right hand and wrist). Absent: pedal edema Additional comments: Right hand and wrist dressing clean, dry, and intact. Positive motor and sensation to the distal extremity. Capillary refill is brisk. - Neurological Exam Neurological exam: Present: alert, oriented X3, no focal deficits - Psychiatric Psychiatric exam: Present: normal affect, normal mood - Skin Skin exam: Present: dry, intact, normal color, warm - VTE Documentation of Mechanical Device: Intermittent pneumatic compression device Consult Discharge Plan - Plan Referrals: NONE,PCP [Primary Care Provider] - - Attending Attestation I examined this patient and my medical decision-making was reviewed with the Resident Physician. I agree with the documented findings, disposition and treatment plan as described except to the extent set forth below.
[2018-03-20] MEDS ORDERED: Lidocaine -MPF 1% 5 ML AMPUL INFILT ONE (15:26)
--- NOTE | 2018-03-20 16:09 | Internal Med Progress Note ---
<Letty Nogueiraa - Last Filed: 03/20/18 16:07> Date of Encounter: 03/20/18 Time of Encounter: 04:10 - Assessment and plan (1) Alcohol abuse Current Visit: Yes Status: Chronic Assessment and plan: Most recent alcohol use Friday03/14/18. -He admits to history of alcohol withdrawal seizures in the past. -Continue Ativan and diazepam per CIWA protocol, last reading 9 -Continue multivitamins, thiamine, and folate -Continue close monitoring and aspiration precautions (2) Benzodiazepine abuse Current Visit: Yes Status: Chronic Assessment and plan: On valium to prevent alcohol withdrawal -Wanted to change it to librium but he has gastrointestinal effects and rashes from it -Continue Ativan and diazepam per CIWA protocol, today CIWA was 9 (3) Hypertension Current Visit: Yes Status: Chronic Assessment and plan: Continue hydralazine when necessary -Most likely due to alcohol withdrawal and right hand pain -Blood pressure stable -Avoid beta blockers due to cocaine dependence Qualifiers: Hypertension type: essential hypertension Qualified Code(s): I10 - Essential (primary) hypertension (4) Diabetes mellitus type 2 in obese Current Visit: Yes Status: Chronic Assessment and plan: Patient denies history of diabetic ulcers in the past. -His most recent hemoglobin A1c that was 6.9 on 03/08/18. -Glucose 148 this morning -Continue basal and sliding scale insulin -Monitor Accu-Cheks ACHS -ADA diet -Diabetic education (5) Polysubstance abuse Current Visit: Yes Status: Chronic Assessment and plan: Patient with known history of opioid, benzos, barbiturate's, cocaine, THC use -Continue symptomatic treatment for signs of withdrawal (6) Hypomagnesemia Current Visit: Yes Status: Acute Assessment and plan: 1.4 this morning - Replaced it with magnesium oxide - Continue monitoring (7) Morbid obesity with BMI of 50.0-59.9, adult Current Visit: No Status: Chronic Assessment and plan: Lifestyle modification -Diabetic education -Consider outpatient sleep study to eval for RACHEL -Low fat, low salt and diabetic diet (8) Tobacco abuse Current Visit: Yes Status: Chronic Assessment and plan: Tobacco cessation discussed to promote wound healing. -On nicotine patch (9) Anxiety Current Visit: Yes Status: Chronic Assessment and plan: Patient reports significant history of anxiety and depression with suicidal ideation in the past. -He denies current suicidal ideation -He said recently his girlfriend broke up with him so he has been more stressed , says he wants to get better to take care of his two children. of -No episodes of recent anxiety (10) Hypokalemia Current Visit: Yes Status: Resolved Assessment and plan: Resolved. Potassium 2.9 at admission -3.4 this morning -Received supplement potassium this morning -Replaced magnesium as well (11) Diastolic CHF, chronic Current Visit: No Status: Chronic Assessment and plan: Echocardiogram 01/25/18 LVEF 60%, mild concentric LVH, moderate LV diastolic dysfunction, mildly dilated right ventricle, no vegetations -No evidence for any acute findings -Patient received IV fluid bolus in the ED -Continue monitoring for signs of fluid overload -No edema in extremities -Chest x-ray on 03/18 findings showed mild cardiomegaly with some hazy opacity not symptomatic (12) Abscess Current Visit: Yes Status: Acute Assessment and plan: Wound cultures pending but would be inaccurate as he was started on antibiotics -Sensations intact of hands bilaterally -Continue antibiotics, on levoflaxacin day 2 and IV Vancomycin day 4 -ID consulted -Consulted orthopedics, s/p incision and drainage two days ago -Continue pain control for pain and NSAIDs to reduce inflammation -Disposition pending based on placement as he is homeless (13) Sepsis Current Visit: Yes Status: Resolved Assessment and plan: Patient medicine service criteria with psychosis at admission: white blood count 13, tachycardia heart rate 107, and right hand abscess is likely source of infection Lactic acid level was 0.9 He received sepsis IVF bolus in the ED He is allergic to amoxicillin, penicillin Continue antibiotics for abscess coverage (on levofloxacin day 2 and vancomycin day 4) White count resolved Blood cultures positive for staph aureus and gram negative rods, sensitivities returned ID consulted and awaiting plan of management Most recent echo 01/25/18 was negative for vegetations Has no valve replacement or hardware Continue to monitor wound healing Qualifiers: Sepsis type: sepsis due to unspecified organism Qualified Code(s): A41.9 - Sepsis, unspecified organism (14) Hypertensive urgency Current Visit: Yes Status: Resolved Assessment and plan: Hypertensive urgency in the setting of alcohol withdrawal -Blood pressure 164/84 this morning -Most likely elevated due to pain and alcohol withdrawal -Continue hydralazine prn -Avoid beta blockers given history of cocaine dependence -Continue close monitoring (15) DVT prophylaxis Current Visit: Yes Status: Acute Assessment and plan: Heparin subcutaneous BID (16) Diarrhea Current Visit: Yes Status: Acute Assessment and plan: Loose stools for 5 days -non watery -Brown in color -Probiotic ordered Qualifiers: Diarrhea type: unspecified type Qualified Code(s): R19.7 - Diarrhea, unspecified - Time Spent With Patient Total time spent is greater than 50% in coordination of care (as documented) at patient's floor/unit and/or counseling patient: - Subjective Interval history: Mr. Adams was seen at bedside this morning. He presented 5 days ago for right hand abscess ongoing for 4 days prior to presentation and is s/p incision and drainage of the right hand abscess. His pain is much better this morning. He is more rested this morning and is alert, oriented to person, place and time and responding to questions appropriately. He has ongoing loose stools. He denies nausea, vomiting, chest pain, shortness of breath, blurry vision or paresthesis. He complained of headache this morning. His wound is covered with bandage and was replaced this morning by ortho. His sensation of the both hands is intact. - Constitutional Vitals: Temp Pulse Resp BP Pulse Ox 98.4 F 88 16 158/79 98 03/20/18 10:50 03/20/18 10:50 03/20/18 10:50 03/20/18 10:50 03/20/18 10:50 General appearance: Present: A&O X 3, morbidly obese, no acute distress, answers questions appropriately - Head Head exam: Present: atraumatic, normocephalic - Eye Eye exam: Present: EOMI, sclera anicteric - ENT ENT exam: Present: mucous membranes moist - Neck Neck exam general surgery: Present: full ROM, trachea midline - Respiratory Respiratory exam: Present: CTAB. Absent: rhonchi, stridor, wheezes - Cardiovascular Cardiovascular exam: Present: RRR. Absent: JVD - GI/Abdominal GI/Abdominal exam: Present: normal bowel sounds, soft. Absent: firm, rebound, rigid - Extremities Exam Extremities exam: Present: full ROM, normal capillary refill (sensation of his hands intact bilaterally). Absent: pedal edema, tenderness - Neurological Exam Neurological exam: Present: alert, oriented X3 - Psychiatric Psychiatric exam: Present: normal affect, normal mood - Skin Skin exam: Present: dry, intact, warm Internal Medicine: Result - Labs CBC & Chem 7: 03/20/18 00:59 03/20/18 00:59 Labs: Short CBC 03/20/18 Range/Units 00:59 WBC 8.3 (4.3-11.1) K/mcL Hgb 13.8 (12.9-16.9) g/dL Hct 39.3 (37.5-50.1) % Plt Count 214 (140-400) K/mcL Neutrophils # 5.0 (1.6-8.9) K/mcL BMP 03/20/18 00:59 Sodium 136 Potassium 3.4 L Chloride 98 Carbon Dioxide 30 H BUN 14 Creatinine 0.76 Glucose 179 H Calcium 10.0 Liver Function 03/20/18 Range/Units 00:59 Total Bilirubin 0.3 (0.3-1.0) mg/dL AST 39 (13-39) Units/L ALT 61 H (7-52) Units/L Alkaline Phosphatase 66 (34-104) Units/L Albumin 3.8 (3.5-5.7) g/dL - ABG Interpretation ABG results: PT/INR, D-dimer PT 14.2 Seconds (9.4-12.1) H 03/16/18 01:28 - VTE Documentation of Mechanical Device: Intermittent pneumatic compression device Consult Discharge Plan - Plan Referrals: NONE,PCP [Primary Care Provider] - <Lauro Zuluaga - Last Filed: 03/20/18 18:15> Date of Encounter: 03/20/18 - Assessment and plan (1) Benzodiazepine abuse Current Visit: Yes Status: Chronic (2) DVT prophylaxis Current Visit: Yes Status: Acute (3) Hypertension Current Visit: Yes Status: Chronic Qualifiers: Hypertension type: essential hypertension Qualified Code(s): I10 - Essential (primary) hypertension (4) Diabetes mellitus type 2 in obese Current Visit: Yes Status: Chronic (5) Polysubstance abuse Current Visit: Yes Status: Chronic (6) Hypomagnesemia Current Visit: Yes Status: Acute (7) Morbid obesity with BMI of 50.0-59.9, adult Current Visit: No Status: Chronic (8) Tobacco abuse Current Visit: Yes Status: Chronic (9) Anxiety Current Visit: Yes Status: Chronic (10) Alcohol abuse Current Visit: Yes Status: Chronic (11) Hypokalemia Current Visit: Yes Status: Resolved (12) Diastolic CHF, chronic Current Visit: No Status: Chronic (13) Abscess Current Visit: Yes Status: Acute (14) Sepsis Current Visit: Yes Status: Resolved Qualifiers: Sepsis type: sepsis due to unspecified organism Qualified Code(s): A41.9 - Sepsis, unspecified organism (15) Hypertensive urgency Current Visit: Yes Status: Resolved (16) Diarrhea Current Visit: Yes Status: Acute Qualifiers: Diarrhea type: unspecified type Qualified Code(s): R19.7 - Diarrhea, unspecified - Time Spent With Patient Total time spent is greater than 50% in coordination of care (as documented) at patient's floor/unit and/or counseling patient: - Constitutional Vitals: Temp Pulse Resp BP Pulse Ox 98.4 F 88 16 158/79 98 03/20/18 10:50 03/20/18 10:50 03/20/18 10:50 03/20/18 10:50 03/20/18 10:50 Internal Medicine: Result - Labs CBC & Chem 7: 03/20/18 00:59 03/20/18 00:59 Labs: Short CBC 03/20/18 Range/Units 00:59 WBC 8.3 (4.3-11.1) K/mcL Hgb 13.8 (12.9-16.9) g/dL Hct 39.3 (37.5-50.1) % Plt Count 214 (140-400) K/mcL Neutrophils # 5.0 (1.6-8.9) K/mcL BMP 03/20/18 00:59 Sodium 136 Potassium 3.4 L Chloride 98 Carbon Dioxide 30 H BUN 14 Creatinine 0.76 Glucose 179 H Calcium 10.0 Liver Function 03/20/18 Range/Units 00:59 Total Bilirubin 0.3 (0.3-1.0) mg/dL AST 39 (13-39) Units/L ALT 61 H (7-52) Units/L Alkaline Phosphatase 66 (34-104) Units/L Albumin 3.8 (3.5-5.7) g/dL - ABG Interpretation ABG results: PT/INR, D-dimer PT 14.2 Seconds (9.4-12.1) H 07/09/18 01:28 - Attending Attestation I saw and evaluated the patient at bedside. I have reviewed the progress note obtained and documented by the resident and personally participated in the moreno components. I have discussed the case and management of the patient's care. I agree with the findings and plan of care.The following comments revise or confirm relevant moreno components of their note. IV ABx and wound care ordered Pt is homeless and will need to be placed in SNF for safety reasons. Also needs IV ABx and wound dressing potential DC over weekend once we have plan for wound care and IV Abx plus duration - ID on board and will guide
[2018-03-20] MEDS: Levofloxacin 750 MG/150 ML 750 MG/150 ML BAG IVPB SCH (16:24)
[2018-03-20] MEDS ORDERED: Ketorolac 15 MG/ML VIAL IVP ONE (16:52)
[2018-03-20] MEDS ORDERED: *HR* OxyCODONE/APAP 10/325 TABLET PO ONE (17:27)
[2018-03-20] MEDS: Insulin DETEMIR 100 UNIT/ML X5UNITS SQ SCH (20:18)
[2018-03-20] MEDS: traMADol 50 MG TABLET PO PRN (23:40)
[2018-03-21] MEDS ORDERED: *HR* OxyCODONE/APAP 5/325 TABLET PO ONE ×2 (00:48→17:35)
[2018-03-21 05:11] LABS: Basophils # 0.1 K/mcL (0.0-0.2); Basophils % 0.6 %; Eosinophils # 0.3 K/mcL (0.0-0.6); Eosinophils % 2.7 %; Hematocrit 37.9 % (37.5-50.1); Hemoglobin 12.6 g/dL (12.9-16.9); Immature Granulocytes % 0.6 % (0-4); Lymphocytes # 2.4 K/mcL (0.6-4.6); Lymphocytes % 25.3 %; Mean Corpuscular HGB Conc 33.2 g/dL (31.6-35.5); Mean Corpuscular Hemoglobin 29.4 pg (28.0-33.3); Mean Corpuscular Volume 88.6 fL (83.0-100.0); Mean Platelet Volume 10.2 fL (9.4-12.4); Monocytes # 0.6 K/mcL (0.0-1.3); Monocytes % 6.5 %; Neutrophils # 6.1 K/mcL (1.6-8.9); Platelet Count 217 K/mcL (140-400); Red Blood Count 4.28 M/mcL (4.19-5.50); Red Cell Distribution Width 13.6 % (11.5-14.5); Segmented Neutrophils % 64.3 %
[2018-03-21] MEDS: *HR* Heparin 5,000 UNIT/ML VIAL SQ SCH ×2 (05:14→17:15)
[2018-03-21] MEDS: *HR* LORazepam 2 MG/ML VIAL IVP PRN (05:14)
[2018-03-21 05:34] LABS: BUN/Creatinine Ratio 24 (6-26); Blood Urea Nitrogen 20 mg/dL (6-20); Calcium 9.3 mg/dL (8.6-10.3); Carbon Dioxide 29 mEq/L (23-29); Chloride 101 mEq/L (98-107); Glucose 165 mg/dL (70-105); Osmolality,Calculated 288 (280-300); Potassium 3.5 mEq/L (3.5-5.1); Sodium 136 mEq/L (136-145); eGFR For African Americans > 60 (> 60); eGFR For Non-African Americans > 60 (> 60)
[2018-03-21] MEDS: Multivit/Ca/Min/Fe/FA 1 TAB TABLET PO SCH (08:30)
[2018-03-21] MEDS: diazePAM 10 MG TABLET PO SCH (08:30)
[2018-03-21] MEDS: Folic Acid 1 MG TABLET PO SCH (08:31)
[2018-03-21] MEDS: Magnesium Oxide 400 MG TABLET PO SCH (08:31)
[2018-03-21] MEDS: Nicotine 21 MG PATCH.TD24 TD SCH (08:31)
[2018-03-21] MEDS: Lactobacillus 1 EACH CAP.SPRINK PO SCH (08:31)
[2018-03-21] MEDS: Thiamine (B-1) 100 MG TABLET PO SCH (08:31)
[2018-03-21] MEDS: Potassium Citrate 10 MEQ TABLET.ER PO SCH ×2 (08:31→14:33)
[2018-03-21] MEDS: Insulin LISPRO 300 UNITS/3 ML VIAL SQ SCH ×3 (08:33→17:17)
--- NOTE | 2018-03-21 12:00 | Discharge Summary ---
<Keke Nogueira - Last Filed: 03/21/18 14:40> - NOTES TO OUTPATIENT PROVIDER Notes to Outpatient Provider: Mr. Adams was admitted to the hospital for right hand abscess. He underwent incision and drainage. His wound culture was postive for MRSA and Pantoea agglomerans. He was started on antibiotics and is on Vancomycin and levofloxacin. He received 6 days of Vancomycin and levofloxacin for 3 days, as well as aztrenam prior to starting levofloxacin for 5 days. He was also on CIWA protocol for alcohol withdrawal. His last alcohol was 03/14/18, and he is stable and no longer on CIWA. He will be discharged with 10 days of IV vancomycin and IV levofloxacin. Will require a vancomycin trough tomorrow (03/22/18). He should get a bmp in 5 days to make sure no renal damage while on vancomycin. Orders not resulted at time of discharge: Pending orders 03/16/18 23:07 Culture,Anaerobic [RM] Routine Date of Encounter: 03/21/18 Time of Encounter: 11:50 - Discharge Diagnosis (1) Abscess Priority: Primary Status: Acute Assessment and Plan: Wound cultures showed MRSA and Pantoea agglomerans -Sensations intact of hands bilaterally -Continue antibiotics, on levoflaxacin day 3 and IV Vancomycin day 6 -ID consulted -Consulted orthopedics, s/p incision and drainage four days ago -Continue pain control for pain and NSAIDs to reduce inflammation -[facility] (2) Alcohol abuse Priority: Secondary Status: Chronic Assessment and Plan: Most recent alcohol use Friday03/14/18. -Stable this morning. -He admits to history of alcohol withdrawal seizures in the past. -No longer on CIWA protocol, his last drink was 7 days ago. -Continue multivitamins, thiamine, and folate -Continue close monitoring and aspiration precautions (3) Benzodiazepine abuse Priority: Secondary Status: Chronic Assessment and Plan: Was on valium to prevent alcohol withdrawal -No longer on CIWA protocol -Wanted to change it to librium but he has gastrointestinal effects and rashes from it (4) Hypertension Priority: Secondary Status: Chronic Assessment and Plan: Continue hydralazine when necessary -Stable. BP this morning was 148/87 -Most likely elevated due to right hand pain -Avoid beta blockers due to cocaine dependence Qualifiers: Hypertension type: essential hypertension Qualified Code(s): I10 - Essential (primary) hypertension (5) Diabetes mellitus type 2 in obese Priority: Secondary Status: Chronic Assessment and Plan: Patient denies history of diabetic ulcers in the past. -His most recent hemoglobin A1c that was 6.9 on 03/08/18. -Glucose 165 this morning -Continue basal and sliding scale insulin -Monitor Accu-Cheks ACHS -ADA diet -Diabetic education (6) Polysubstance abuse Priority: Secondary Status: Chronic Assessment and Plan: Patient with known history of opioid, benzos, barbiturate's, cocaine, THC use -Was on CIWA protocol for 5 days and received ativan for alcohol withdrawal -He is now comfortable in bed. -Complains of a headache which me be unrelated to alcohol (7) Hypomagnesemia Priority: Secondary Status: Acute Assessment and Plan: 1.4 yesterday - Replaced it with magnesium oxide - Continue monitoring (8) Morbid obesity with BMI of 50.0-59.9, adult Priority: Secondary Status: Chronic Assessment and Plan: Lifestyle modification -Diabetic education -Consider outpatient sleep study to eval for RACHEL -Low fat, low salt and diabetic diet (9) Tobacco abuse Priority: Secondary Status: Chronic Assessment and Plan: Tobacco cessation discussed to promote wound healing. -On nicotine patch (10) Anxiety Priority: Secondary Status: Chronic Assessment and Plan: Patient reports significant history of anxiety and depression with suicidal ideation in the past. -He denies current suicidal ideation -He said recently his girlfriend broke up with him so he has been more stressed , says he wants to get better to take care of his two children. of -No episodes of recent anxiety (11) Hypokalemia Priority: Secondary Status: Resolved Assessment and Plan: Resolved. Potassium 2.9 at admission -3.5 this morning -Can continue potassium chloride (12) Diastolic CHF, chronic Priority: Secondary Status: Chronic Assessment and Plan: Echocardiogram 01/25/18 LVEF 60%, mild concentric LVH, moderate LV diastolic dysfunction, mildly dilated right ventricle, no vegetations -No evidence for any acute findings -Patient received IV fluid bolus in the ED -Continue monitoring for signs of fluid overload -No edema in extremities -Chest x-ray on 03/18 findings showed mild cardiomegaly with some hazy opacity not symptomatic -No symptoms-no orthopnea, edema, paroxysmal nocturnal dyspnea (13) Sepsis Priority: Secondary Status: Resolved Assessment and Plan: Resolved. Secondary to the hand abscess. Patient medicine service criteria with psychosis at admission: white blood count 13, tachycardia heart rate 107, and right hand abscess is likely source of infection -Lactic acid level was 0.9 at admission. -He received sepsis IVF bolus in the ED -He is allergic to amoxicillin, penicillin -White count resolved -Blood cultures positive for MRSA and Pantoe agglomerans -Most recent echo 01/25/18 was negative for vegetations -Has no valve replacement or hardware -Continue to monitor wound healing -Continue antibiotics for total of 14 days (on levofloxacin day 3 and vancomycin day 6) Qualifiers: Sepsis type: sepsis due to unspecified organism Qualified Code(s): A41.9 - Sepsis, unspecified organism (14) Hypertensive urgency Priority: Secondary Status: Resolved Assessment and Plan: Hypertensive urgency in the setting of alcohol withdrawal. -stable this morning -Blood pressure 147/87 this morning -Continue hydralazine prn -Avoid beta blockers given history of cocaine dependence -Continue close monitoring (15) DVT prophylaxis Priority: Secondary Status: Acute Assessment and Plan: Heparin subcutaneous BID during admission (16) Diarrhea Priority: Secondary Status: Acute Assessment and Plan: Resolved. -non watery -Brown in color -Probiotic ordered Qualifiers: Diarrhea type: unspecified type Qualified Code(s): R19.7 - Diarrhea, unspecified Hospital course: Mr. Adams is a 47 year old male with a past medical history of diabetes, hypertension, alcoholism, and substance abuse who presented to the ED complaining of hand abscess, fever, and chills for the past 4 days prior to his presentation. Redness, swelling, and pain had gradually worsened prior to arrival. Patient admits to injecting heroin in the area of the abscess and most recent alcohol use yesterday. He admits to history of alcohol withdrawal seizures in the past. He stated he drinks 12 beers a day and his last alcoholic beverage was on 03/14/18. He was also on CIWA protocol for alcohol withdrawal but is 6 days past his last alcoholic beverage and has no signs of ongoing alcoholic beverage. His last alcohol was 03/14/18, and he is stable and no longer on CIWA. His most recent hemoglobin A1c that was 6.9 on 03/08/18. He underwent incision and drainage. His wound culture was positive for MRSA and Pantoea agglomerans. He was started on antibiotics and is on Vancomycin and levofloxacin. He received 6 days of Vancomycin and levofloxacin for 3 days, as well as aztrenam prior to starting levofloxacin for 5 days. He will be discharged with 10 days of IV vancomycin and IV levofloxacin. Discharge discussed with: nurse - Time Spent with Patient Total time spent providing and/or coordinating discharge services: - Discharge Medications Prescriptions: Levofloxacin 750 MG/150 ML [Levaquin Premix 750mg/150 mL] 750 mg IVPB Q24H 10 Days #10 bag Vancomycin/0.9 % Sod Chloride [Vanco 2 Gram/500 ml-0.9% NaCl] 2 gm IV BID 10 Days #20 plast..bag Home Medications: Folic Acid 1 mg PO DAILY tablet 03/21/18 [Rx] Glucagon, Human Recombinant [Glucagen] 1 mg IM ONCE PRN vial 03/21/18 [Rx] Insulin DETEMIR [Levemir] 24 unit SQ HS [id number] 03/21/18 [Rx] Insulin LISPRO [HumaLOG] 0 units SQ TIDAC vial 03/21/18 [Rx] Lactobacillus [Culturelle] 1 each PO BID cap.sprink 03/21/18 [Rx] Levofloxacin 750 MG/150 ML [Levaquin Premix 750mg/150 mL] 750 mg IVPB Q24H 10 Days #10 bag 03/21/18 [Rx] Multivit/Ca/Min/Fe/FA [Thera M Plus] 1 tab PO DAILY tablet 03/21/18 [Rx] Nicotine Patch [Nicoderm] 21 mg TD DAILY patch.td24 03/21/18 [Rx] Thiamine (B-1) [Vitamin B-1] 100 mg PO DAILY tablet 03/21/18 [Rx] Vancomycin/0.9 % Sod Chloride [Vanco 2 Gram/500 ml-0.9% NaCl] 2 gm IV BID 10 Days #20 plast..bag 03/21/18 [Rx] hydrALAZINE [HydrALAZINE] 10 mg IVP Q6HR PRN vial 03/21/18 [Rx] Allergies/Adverse Reactions: 3 Allergy/AdvReac Type Severity Reaction Status Date / Time Amoxicillin Allergy Hives Verified 03/08/18 09:27 Penicillins Allergy Hives Verified 03/08/18 09:27 quetiapine [From Seroquel] Allergy Hives Verified 03/08/18 09:27 chlordiazepoxide AdvReac Gastrointestinal Verified 03/08/18 09:27 [From Librium] Upset Date of admission: 03/15/18 22:02 Primary care physician: PCP NONE Consults: 03/15/18 22:18 Consult to Diabetes Education [CONS] Routine Comment: Reason for Consult: DM diet education 03/19/18 12:58 Consult to Infectious Diseases [CONS] Routine Consulting Provider: Infectious Disease Jaylyn Reason for Consult: Right hand abscess Time Notified: 12:58 Call Completed: Yes 03/20/18 15:26 Consult to Invasive Line Access Team [CONS] Routine Reason for Consult: Picc Line Insertion Line Type: PICC Discharging clinician: Keke Nogueira Anticipated date of discharge: 03/21/18 - Constitutional Vitals: Temp Pulse Resp BP Pulse Ox 98.4 F 101 16 148/87 96 03/21/18 10:05 03/21/18 10:05 03/21/18 10:05 03/21/18 10:05 03/21/18 10:05 General appearance: Present: A&O X 3, morbidly obese, no acute distress, answers questions appropriately - Head Head exam: Present: atraumatic, normocephalic - Eye Eye exam: Present: EOMI, sclera anicteric - ENT ENT exam: Present: mucous membranes moist - Neck Neck exam general surgery: Present: full ROM, trachea midline - Respiratory Respiratory exam: Present: CTAB. Absent: rales, stridor, wheezes - Cardiovascular Cardiovascular exam: Present: RRR. Absent: JVD, +S1, +S2 - GI/Abdominal GI/Abdominal exam: Present: normal bowel sounds, soft. Absent: firm, rebound, rigid - Extremities Exam Extremities exam: Present: warm. Absent: calf tenderness, pedal edema, tenderness - Psychiatric Psychiatric exam: Present: normal affect, normal mood - Skin Skin exam: Present: dry (Dry right hand bandage), intact, warm. Absent: rash - Patient Status Disposition: Transfer SNF Condition: Fair Functional capacity at discharge: independent ambulation Overall status at discharge: patient is progressing back to baseline - Discharge Instructions Follow Up With: NONE,PCP [Primary Care Provider] - - Diet and Activity Activity: resume usual activities as tolerated Diet: diabetic diet, low fat, low cholesterol, low salt diet - VTE Documentation of Mechanical Device: Intermittent pneumatic compression device <Dia Lozano - Last Filed: 03/21/18 15:29> Orders not resulted at time of discharge: Pending orders 03/16/18 23:07 Culture,Anaerobic [RM] Routine Date of Encounter: 03/21/18 - Discharge Diagnosis (1) Benzodiazepine abuse Status: Chronic (2) DVT prophylaxis Status: Acute (3) Hypertension Status: Chronic Qualifiers: Hypertension type: essential hypertension Qualified Code(s): I10 - Essential (primary) hypertension (4) Diabetes mellitus type 2 in obese Status: Chronic (5) Polysubstance abuse Status: Chronic (6) Hypomagnesemia Status: Resolved (7) Morbid obesity with BMI of 50.0-59.9, adult Status: Chronic (8) Tobacco abuse Status: Chronic (9) Anxiety Status: Chronic (10) Alcohol abuse Status: Chronic (11) Hypokalemia Status: Resolved (12) Diastolic CHF, chronic Status: Chronic (13) Abscess Status: Acute (14) Sepsis Status: Resolved Qualifiers: Sepsis type: sepsis due to unspecified organism Qualified Code(s): A41.9 - Sepsis, unspecified organism (15) Hypertensive urgency Status: Resolved (16) Diarrhea Status: Resolved Qualifiers: Diarrhea type: unspecified type Qualified Code(s): R19.7 - Diarrhea, unspecified Hospital course: Mr. Adams is a 47 year old male - Time Spent with Patient Total time spent providing and/or coordinating discharge services: Date of admission: 03/15/18 22:02 Primary care physician: PCP NONE Consults: 03/15/18 22:18 Consult to Diabetes Education [CONS] Routine Comment: Reason for Consult: DM diet education 03/19/18 12:58 Consult to Infectious Diseases [CONS] Routine Consulting Provider: Infectious Disease Gilbert Reason for Consult: Right hand abscess Time Notified: 12:58 Call Completed: Yes 03/20/18 15:26 Consult to Invasive Line Access Team [CONS] Routine Reason for Consult: Picc Line Insertion Line Type: PICC - Constitutional Vitals: Temp Pulse Resp BP Pulse Ox 98.7 F 108 16 154/86 98 03/21/18 14:08 03/21/18 14:08 03/21/18 14:08 03/21/18 14:08 03/21/18 14:08 - Attending Attestation I examined this patient and my medical decision-making was reviewed with the Resident Physician Dr. Davies . I agree with the documented findings, disposition and treatment plan as described except to the extent set forth below. Mr. Adams is a 47 y/o M with a past medical history of diabetes, hypertension , alcoholism, and substance abuse presents complaining of hand abscess, fever, and chills for the past 4 days. Pt was admitted in the hospital and started him on broad spec abx. He was evaluated by Ortho and had Incision, drainage, irrigation, debridement of the right dorsal hand abscess dorsal to the index metacarpophalangeal joint and right volar wrist abscess on 03/16/18. Wound cx came back MRSA and Pantoea Agglomerans. Medically stable to d/c to ECF with IV Levofloxacin and IV Vancomycin for total 2 weeks course.
[2018-03-21] MEDS ORDERED: *HR* LORazepam 1 MG TABLET PO PRN (13:54)
--- NOTE | 2018-03-21 14:45 | Physician Discharge Referral ---
ExtendedCare Referral Info Transfer To: [facility] ([facility] in [place]) Provider in Charge: [facility] physician Institutional Level of Care: Skilled - Diagnosis (1) Abscess Priority: Primary Status: Acute (2) Alcohol abuse Priority: Secondary Status: Chronic (3) Benzodiazepine abuse Priority: Secondary Status: Chronic (4) Hypertension Priority: Secondary Status: Chronic (5) Diabetes mellitus type 2 in obese Priority: Secondary Status: Chronic (6) Polysubstance abuse Priority: Secondary Status: Chronic (7) Hypomagnesemia Priority: Secondary Status: Resolved (8) Morbid obesity with BMI of 50.0-59.9, adult Priority: Secondary Status: Chronic (9) Tobacco abuse Priority: Secondary Status: Chronic (10) Anxiety Priority: Secondary Status: Chronic (11) Hypokalemia Priority: Secondary Status: Resolved (12) Diastolic CHF, chronic Priority: Secondary Status: Chronic (13) Sepsis Priority: Secondary Status: Resolved (14) Hypertensive urgency Priority: Secondary Status: Resolved (15) Diarrhea Priority: Secondary Status: Resolved (16) DVT prophylaxis Priority: Secondary Status: Acute Prognosis: Good Aware of Diagnosis: Patient Aware of Prognosis: Patient - Transfer Medications Prescriptions: Levofloxacin 750 MG/150 ML [Levaquin Premix 750mg/150 mL] 750 mg IVPB Q24H 10 Days #10 bag Vancomycin/0.9 % Sod Chloride [Vanco 2 Gram/500 ml-0.9% NaCl] 2 gm IV BID 10 Days #20 plast..bag Home Medications: Folic Acid 1 mg PO DAILY tablet 03/21/18 [Rx] Glucagon, Human Recombinant [Glucagen] 1 mg IM ONCE PRN vial 03/21/18 [Rx] Insulin DETEMIR [Levemir] 24 unit SQ HS [id number] 03/21/18 [Rx] Insulin LISPRO [HumaLOG] 0 units SQ TIDAC vial 03/21/18 [Rx] Lactobacillus [Culturelle] 1 each PO BID cap.sprink 03/21/18 [Rx] Levofloxacin 750 MG/150 ML [Levaquin Premix 750mg/150 mL] 750 mg IVPB Q24H 10 Days #10 bag 03/21/18 [Rx] Multivit/Ca/Min/Fe/FA [Thera M Plus] 1 tab PO DAILY tablet 03/21/18 [Rx] Nicotine Patch [Nicoderm] 21 mg TD DAILY patch.td24 03/21/18 [Rx] Thiamine (B-1) [Vitamin B-1] 100 mg PO DAILY tablet 03/21/18 [Rx] Vancomycin/0.9 % Sod Chloride [Vanco 2 Gram/500 ml-0.9% NaCl] 2 gm IV BID 10 Days #20 plast..bag 03/21/18 [Rx] hydrALAZINE [HydrALAZINE] 10 mg IVP Q6HR PRN vial 03/21/18 [Rx] Allergies/Adverse Reactions: 3 Allergy/AdvReac Type Severity Reaction Status Date / Time Amoxicillin Allergy Hives Verified 03/08/18 09:27 Penicillins Allergy Hives Verified 03/08/18 09:27 quetiapine [From Seroquel] Allergy Hives Verified 03/08/18 09:27 chlordiazepoxide AdvReac Gastrointestinal Verified 03/08/18 09:27 [From Librium] Upset - Respiratory Orders Smoking Cessation: Smoking cessation has been advised. For more information, call the [place] Tobacco Quit Line at 9-593-WLXI-NOW. - Lab Orders Lab Orders: Other (include drug levels w/frequency) (Please check vancomycin trough level tomorrow, 03/22/18. Also, check BMP in 5 days for renal function.) - Mobility Orders Ambulate - Rehabiliation Orders Rehab Potential: Good - Treatments List/Other: Please check vancomycin trough tomorrow 03/22/18. Can call [facility] if need assistance with dosing it. [phone] Should also get a BMP in 5 days to check renal function - Diet Orders No Concentrated Sweets House Supplement per Dietary: Diabetic diet CERTIFICATION: I certify that the transfer of the above named patient to an Extended Care Facility is necessary for the continuing treatment of the diagnosis listed. The above information is true and accurate reflection of patient's current condition. Confidential - Redisclosure prohibited without a patient's written consent.
[2018-03-21] MEDS: Levofloxacin 750 MG/150 ML 750 MG/150 ML BAG IVPB SCH (17:14)
[2018-03-21 18:15] VITALS: BP 176/115
[2018-03-21] MEDS ORDERED: diazePAM 10 MG TABLET PO SCH (21:00)
== END 2018-03-21 19:47 | DRG 854 ==
LOC: 3NENU 16:37 → EMEROO 16:37 → 3NENU 21:20 → SUATTDRO 22:02
PROVIDERS: ADMIT Internal Medicine; ATTEND Internal Medicine

== ENCOUNTER 2018-04-27 20:43 | Observation (INO) ==
[2018-04-27] MEDS ORDERED: 0.9 % Sodium Chloride 1,000 ML IVC ONE (20:51)
[2018-04-27] MEDS ORDERED: Thiamine (B-1) 100 MG, Folic Acid 1 MG in D5% in Water 50 ML IVPB ONE (20:51)
[2018-04-27] MEDS ORDERED: Folic Acid 1 MG in D5% in Water 50 ML IVPB ONE (20:51)
--- NOTE | 2018-04-27 20:53 | Emergency Department Note ---
Disposition Clinical Impression: Alcohol withdrawal Qualifiers: Complication of substance-induced condition: with unspecified complication Qualified Code(s): F10.239 - Alcohol dependence with withdrawal, unspecified Disposition: Admitted As Inpatient Condition: Fair Referrals: NONE,PCP [Primary Care Provider] - Forms: ED Satisfaction Letter Time of Disposition: 23:04 Alcohol HPI - General Chief Complaint: ED Alcohol Abuse Stated Complaint: w/d from alcohol Time Seen by Provider: 04/27/18 20:50 Source: patient Mode of arrival: ambulatory Limitations: no limitations Nursing Notes Reviewed: Yes Vital Signs Reviewed: Yes - History of Present Illness HPI Narrative: Patient presents to the ED with the chief complaint of alcohol withdrawal. States that he has been drinking about a pint of vodka and 4-6" tall boys." A day. States that he has had a lot of stressors in his life recently with his girlfriend and family. States that he quit using heroin about a month and a half ago, but is still using cocaine and alcohol. States that he last used cocaine about 2 days ago. His last drink was approximately 6 hours ago. States that he feels shaky and jittery. Some abdominal cramping and nausea. Does report a syncopal episode earlier today that was witnessed by family. There is no witnessed seizure-like activity. Patient states he just needs to get off alcohol. He denies any chest pain or shortness breath. No fever or chills. No diarrhea, hematuria, dysuria. States that he had surgery on his right wrist about a month and half ago for an abscess from injecting heroin and that has healed well. - Related Data Home Medications Medication Instructions Recorded Confirmed No Known Home Drugs 04/27/18 04/27/18 Allergies Allergy/AdvReac Type Severity Reaction Status Date / Time Amoxicillin Allergy Hives Verified 03/08/18 09:27 Penicillins Allergy Hives Verified 03/08/18 09:27 quetiapine [From Seroquel] Allergy Hives Verified 03/08/18 09:27 chlordiazepoxide AdvReac Gastrointestinal Verified 03/08/18 09:27 [From Librium] Upset Review of Systems: As reviewed in the HPI. All other systems reviewed are negative or normal. Past Medical History - Past Medical History Attestation: Yes The following information was validated with the patient. Source: patient Medical history: Reports: diabetes, hypertension Surgical history: Reports: no surgical history Psychiatric history: Reports: depression - Social History Smoking Status: Current every day smoker Smokeless Tobacco Status: No Alcohol use: Reports: heavy, recent Drug use: Reports: opiates, marijuana, IV Drug Use, prescription drug abuse Physical Exam CONSTITUTIONAL: [well appearing, alert and anxious, jittery, appears uncomfortable] EYES: [EOMI, clear conjunctiva, PERRLA] HENT: [Normocephalic, atraumatic, moist mucus membranes, normal oropharynx] NECK: [normal inspection, full ROM, trachea midline, no obvious swelling] PULMONARY: [normal lung sounds bilaterally, normal chest rise and fall, no respiratory distress or stridor, no wheezes, no rales, no rhonchi CARDIOVASCULAR: [regular rate, regular rhythm, normal heart sounds, no murmurs, distal extremities are warm and well perfused] GASTROINSTESTINAL: [soft, non-tender, non-rigid, obese and distended, no guarding, no rebound, normal bowel sounds] GENITOURINARY/RECTAL: [deferred] NEUROLOGIC: [Alert, oriented x3, normal speech, moves all extremities, normal strength and sensation throughout, resting tremor, jittery] EXTREMITIES: [Normal inspection, full ROM, no tenderness, no pedal edema, normal capillary refill] MUSCULOSKELETAL: [no gross deformities, atraumatic] SKIN: [No cyanosis, no diaphoresis, normal color, warm, no rash] PSYCHIATRIC: [anxious, slightly tearful] - General General appearance: alert, in no apparent distress Course Course Narrative: patient presenting with alcohol withdraw. is very agitated and anxious, sweaty , nauseated with dry heaves. will give 2mg Ativan patient still anxious, 2mg ativan additional bolus did help - Reevaluation(s) Reevaluation #1: admitted to hospitalist. patient starting to get anxious again, will transition to valium in anticipation for admission. Vital Signs Temperature 98.6 F 04/27/18 20:48 Pulse Rate 115 04/27/18 20:48 Respiratory Rate 18 04/27/18 20:48 Blood Pressure 121/63 04/27/18 20:48 O2 Sat by Pulse Oximetry 95 04/27/18 20:48 Temperature 98.6 F 04/27/18 20:48 Pulse Rate 115 04/27/18 20:48 Respiratory Rate 18 04/27/18 20:48 Blood Pressure 121/63 04/27/18 20:48 O2 Sat by Pulse Oximetry 95 04/27/18 20:48 Oxygen Delivery Oxygen Delivery Room Air Alcohol - Medical Records Medical records reviewed: Yes I reviewed the patient's medical records. - Lab Data Lab results reviewed: Yes I reviewed the patient's lab results. Result diagrams: 04/27/18 20:51 04/27/18 20:51 Lab Results 04/27/18 04/27/18 04/27/18 Range/Units 20:51 20:51 21:55 WBC 8.1 (4.3-11.1) K/mcL RBC 4.92 (4.19-5.50) M/mcL Hgb 14.9 (12.9-16.9) g/dL Hct 43.3 (37.5-50.1) % MCV 88.0 (83.0-100.0) fL MCH 30.3 (28.0-33.3) pg MCHC 34.4 (31.6-35.5) g/dL RDW 14.1 (11.5-14.5) % Plt Count 242 (140-400) K/mcL MPV 9.9 (9.4-12.4) fL Immature Gran % 0.2 (0-4) % Seg Neutrophils % 63.4 % Lymphocytes % 25.9 % Monocytes % 7.3 % Eosinophils % 2.5 % Basophils % 0.7 % Neutrophils # 5.1 (1.6-8.9) K/mcL Lymphocytes # 2.1 (0.6-4.6) K/mcL Monocytes # 0.6 (0.0-1.3) K/mcL Eosinophils # 0.2 (0.0-0.6) K/mcL Basophils # 0.1 (0.0-0.2) K/mcL Sodium 140 (136-145) mEq/L Potassium 3.2 L (3.5-5.1) mEq/L Chloride 103 (98-107) mEq/L Carbon Dioxide 26 (23-29) mEq/L BUN 13 (6-20) mg/dL Creatinine 0.99 (0.70-1.30) mg/dL Est GFR ( Amer) > 60 (> 60) Est GFR (Non-Af Amer) > 60 (> 60) BUN/Creatinine Ratio 13 (6-26) Glucose 163 H (70-105) mg/dL Calculated Osmolality 294 (280-300) Calcium 9.7 (8.6-10.3) mg/dL Total Bilirubin 0.4 (0.3-1.0) mg/dL AST 61 H (13-39) Units/L ALT 82 H (7-52) Units/L Alkaline Phosphatase 75 (34-104) Units/L Troponin I < 0.03 (< 0.04) ng/mL Serum Total Protein 7.7 (6.4-8.9) g/dL Albumin 4.4 (3.5-5.7) g/dL Globulin 3.3 (2.4-3.5) g/dL Albumin/Globulin Ratio 1.3 (1.1-2.2) Lipase 32 (11-82) Units/L Urine Color Yellow (Yellow) Urine Clarity Clear (Clear) Urine pH 6.0 (5.0-8.0) pH Units Ur Specific [place] 1.015 (1.010-1.025) Urine Protein Negative (Neg-Trace) mg/dL Urine Glucose (UA) Normal (Normal) mg/dL Urine Ketones Negative (Negative) mg/dL Urine Blood Negative (Negative) Urine Nitrite Negative (Negative) Urine Bilirubin Negative (Negative) Urine Urobilinogen Normal (Normal) mg/dL Ur Leukocyte Esterase Negative (Negative) Urine Opiates Screen (Qxqvsx=893) ng/mL Ur Barbiturates Screen (Pparzh=569) ng/mL Ur Phencyclidine Scrn (Cutoff=25) ng/mL Ur Amphetamines Screen (Szgrhl=5790) ng/mL U Benzodiazepines Scrn (Ygtsgk=925) ng/mL Urine Cocaine Screen (Cutoff= 300) ng/mL U Marijuana (THC) Screen (Cutoff = 50) ng/mL Ur Drug Screen Interp Ethyl Alcohol 69 H (Less than 10) mg/dL 04/27/18 Range/Units 21:55 WBC (4.3-11.1) K/mcL RBC (4.19-5.50) M/mcL Hgb (12.9-16.9) g/dL Hct (37.5-50.1) % MCV (83.0-100.0) fL MCH (28.0-33.3) pg MCHC (31.6-35.5) g/dL RDW (11.5-14.5) % Plt Count (140-400) K/mcL MPV (9.4-12.4) fL Immature Gran % (0-4) % Seg Neutrophils % % Lymphocytes % % Monocytes % % Eosinophils % % Basophils % % Neutrophils # (1.6-8.9) K/mcL Lymphocytes # (0.6-4.6) K/mcL Monocytes # (0.0-1.3) K/mcL Eosinophils # (0.0-0.6) K/mcL Basophils # (0.0-0.2) K/mcL Sodium (136-145) mEq/L Potassium (3.5-5.1) mEq/L Chloride (98-107) mEq/L Carbon Dioxide (23-29) mEq/L BUN (6-20) mg/dL Creatinine (0.70-1.30) mg/dL Est GFR ( Amer) (> 60) Est GFR (Non-Af Amer) (> 60) BUN/Creatinine Ratio (6-26) Glucose (70-105) mg/dL Calculated Osmolality (280-300) Calcium (8.6-10.3) mg/dL Total Bilirubin (0.3-1.0) mg/dL AST (13-39) Units/L ALT (7-52) Units/L Alkaline Phosphatase (34-104) Units/L Troponin I (< 0.04) ng/mL Serum Total Protein (6.4-8.9) g/dL Albumin (3.5-5.7) g/dL Globulin (2.4-3.5) g/dL Albumin/Globulin Ratio (1.1-2.2) Lipase (11-82) Units/L Urine Color (Yellow) Urine Clarity (Clear) Urine pH (5.0-8.0) pH Units Ur Specific [place] (1.010-1.025) Urine Protein (Neg-Trace) mg/dL Urine Glucose (UA) (Normal) mg/dL Urine Ketones (Negative) mg/dL Urine Blood (Negative) Urine Nitrite (Negative) Urine Bilirubin (Negative) Urine Urobilinogen (Normal) mg/dL Ur Leukocyte Esterase (Negative) Urine Opiates Screen Negative (Cmcvjs=972) ng/mL Ur Barbiturates Screen Negative (Dvrytf=244) ng/mL Ur Phencyclidine Scrn Negative (Cutoff=25) ng/mL Ur Amphetamines Screen Negative (Ujeett=6642) ng/mL U Benzodiazepines Scrn Positive H (Uqsrrs=300) ng/mL Urine Cocaine Screen Negative (Cutoff= 300) ng/mL U Marijuana (THC) Screen Positive H (Cutoff = 50) ng/mL Ur Drug Screen Interp See Below Ethyl Alcohol (Less than 10) mg/dL - Radiology Data Radiology results reviewed: Yes I reviewed the patient's radiology results. - EKG Data EKG attestation: Yes I reviewed and interpreted this EKG. EKG results narrative: Sinus tach, rate 101, QTc 502, right axis deviation, no acute ischemic changes.
[2018-04-27] MEDS ORDERED: *HR* LORazepam 2 MG/ML VIAL IM ONE (20:57)
[2018-04-27] MEDS ORDERED: *HR* LORazepam 2 MG/ML VIAL IVP ONE ×2 (21:07→21:26)
[2018-04-27 21:18] LABS: Basophils # 0.1 K/mcL (0.0-0.2); Basophils % 0.7 %; Eosinophils # 0.2 K/mcL (0.0-0.6); Eosinophils % 2.5 %; Hematocrit 43.3 % (37.5-50.1); Hemoglobin 14.9 g/dL (12.9-16.9); Immature Granulocytes % 0.2 % (0-4); Lymphocytes # 2.1 K/mcL (0.6-4.6); Lymphocytes % 25.9 %; Mean Corpuscular HGB Conc 34.4 g/dL (31.6-35.5); Mean Corpuscular Hemoglobin 30.3 pg (28.0-33.3); Mean Platelet Volume 9.9 fL (9.4-12.4); Monocytes # 0.6 K/mcL (0.0-1.3); Monocytes % 7.3 %; Neutrophils # 5.1 K/mcL (1.6-8.9); Platelet Count 242 K/mcL (140-400); Red Blood Count 4.92 M/mcL (4.19-5.50); Red Cell Distribution Width 14.1 % (11.5-14.5); Segmented Neutrophils % 63.4 %
--- NOTE | 2018-04-27 21:31 | Emergency Department Note ---
Disposition Clinical Impression: Alcohol withdrawal Qualifiers: Complication of substance-induced condition: with unspecified complication Qualified Code(s): F10.239 - Alcohol dependence with withdrawal, unspecified Disposition: Admitted As Inpatient Condition: Fair General Adult HPI - General Chief complaint: ED Alcohol Abuse Stated complaint: w/d from alcohol Time Seen by Provider: 04/27/18 20:50 Source: patient Mode of arrival: ambulatory Limitations: no limitations Nursing Notes Reviewed: Yes Vital Signs Reviewed: Yes - History of Present Illness Pain Scale: 6 - Related Data Home Medications Medication Instructions Recorded Confirmed No Known Home Drugs 04/27/18 04/27/18 Allergies Allergy/AdvReac Type Severity Reaction Status Date / Time Amoxicillin Allergy Hives Verified 03/08/18 09:27 Penicillins Allergy Hives Verified 03/08/18 09:27 quetiapine [From Seroquel] Allergy Hives Verified 03/08/18 09:27 chlordiazepoxide AdvReac Gastrointestinal Verified 03/08/18 09:27 [From Librium] Upset Past Medical History - Past Medical History Medical history: Reports: diabetes, hypertension Surgical history: Reports: no surgical history Psychiatric history: Reports: depression - Social History Smoking Status: Current every day smoker Smokeless Tobacco Status: No Alcohol use: Reports: heavy, recent Drug use: Reports: opiates, marijuana, IV Drug Use, prescription drug abuse Physical Exam - General Limitations: no limitations General appearance: alert, in no apparent distress Course Vital Signs Temperature 98.6 F 04/27/18 20:48 Pulse Rate 115 04/27/18 20:48 Respiratory Rate 18 04/27/18 20:48 Blood Pressure 121/63 04/27/18 20:48 O2 Sat by Pulse Oximetry 95 04/27/18 20:48 Temperature 98.6 F 04/27/18 20:48 Pulse Rate 115 04/27/18 20:48 Respiratory Rate 18 04/27/18 20:48 Blood Pressure 121/63 04/27/18 20:48 O2 Sat by Pulse Oximetry 95 04/27/18 20:48 Oxygen Delivery Oxygen Delivery Room Air Medical Decision Making - Lab Data Lab results reviewed: Yes I reviewed the patient's lab results. Result diagrams: 04/27/18 20:51 04/27/18 20:51 Lab Results 04/27/18 04/27/18 04/27/18 Range/Units 20:51 20:51 21:04 WBC 8.1 (4.3-11.1) K/mcL RBC 4.92 (4.19-5.50) M/mcL Hgb 14.9 (12.9-16.9) g/dL Hct 43.3 (37.5-50.1) % MCV 88.0 (83.0-100.0) fL MCH 30.3 (28.0-33.3) pg MCHC 34.4 (31.6-35.5) g/dL RDW 14.1 (11.5-14.5) % Plt Count 242 (140-400) K/mcL MPV 9.9 (9.4-12.4) fL Immature Gran % 0.2 (0-4) % Seg Neutrophils % 63.4 % Lymphocytes % 25.9 % Monocytes % 7.3 % Eosinophils % 2.5 % Basophils % 0.7 % Neutrophils # 5.1 (1.6-8.9) K/mcL Lymphocytes # 2.1 (0.6-4.6) K/mcL Monocytes # 0.6 (0.0-1.3) K/mcL Eosinophils # 0.2 (0.0-0.6) K/mcL Basophils # 0.1 (0.0-0.2) K/mcL Sodium 140 (136-145) mEq/L Potassium 3.2 L (3.5-5.1) mEq/L Chloride 103 (98-107) mEq/L Carbon Dioxide 26 (23-29) mEq/L BUN 13 (6-20) mg/dL Creatinine 0.99 (0.70-1.30) mg/dL Est GFR ( Amer) > 60 (> 60) Est GFR (Non-Af Amer) > 60 (> 60) BUN/Creatinine Ratio 13 (6-26) Glucose 163 H (70-105) mg/dL Calculated Osmolality 294 (280-300) Calcium 9.7 (8.6-10.3) mg/dL Total Bilirubin 0.4 (0.3-1.0) mg/dL AST 61 H (13-39) Units/L ALT 82 H (7-52) Units/L Alkaline Phosphatase 75 (34-104) Units/L Troponin I < 0.03 (< 0.04) ng/mL B-Natriuretic Peptide 24 (Less than 100) pg/mL Serum Total Protein 7.7 (6.4-8.9) g/dL Albumin 4.4 (3.5-5.7) g/dL Globulin 3.3 (2.4-3.5) g/dL Albumin/Globulin Ratio 1.3 (1.1-2.2) Lipase 32 (11-82) Units/L Urine Color (Yellow) Urine Clarity (Clear) Urine pH (5.0-8.0) pH Units Ur Specific [place] (1.010-1.025) Urine Protein (Neg-Trace) mg/dL Urine Glucose (UA) (Normal) mg/dL Urine Ketones (Negative) mg/dL Urine Blood (Negative) Urine Nitrite (Negative) Urine Bilirubin (Negative) Urine Urobilinogen (Normal) mg/dL Ur Leukocyte Esterase (Negative) Urine Opiates Screen (Sfnqoy=981) ng/mL Ur Barbiturates Screen (Wxggxs=280) ng/mL Ur Phencyclidine Scrn (Cutoff=25) ng/mL Ur Amphetamines Screen (Yrwpvb=5211) ng/mL U Benzodiazepines Scrn (Nuzfxp=678) ng/mL Urine Cocaine Screen (Cutoff= 300) ng/mL U Marijuana (THC) Screen (Cutoff = 50) ng/mL Ur Drug Screen Interp Ethyl Alcohol 69 H (Less than 10) mg/dL 04/27/18 04/27/18 Range/Units 21:55 21:55 WBC (4.3-11.1) K/mcL RBC (4.19-5.50) M/mcL Hgb (12.9-16.9) g/dL Hct (37.5-50.1) % MCV (83.0-100.0) fL MCH (28.0-33.3) pg MCHC (31.6-35.5) g/dL RDW (11.5-14.5) % Plt Count (140-400) K/mcL MPV (9.4-12.4) fL Immature Gran % (0-4) % Seg Neutrophils % % Lymphocytes % % Monocytes % % Eosinophils % % Basophils % % Neutrophils # (1.6-8.9) K/mcL Lymphocytes # (0.6-4.6) K/mcL Monocytes # (0.0-1.3) K/mcL Eosinophils # (0.0-0.6) K/mcL Basophils # (0.0-0.2) K/mcL Sodium (136-145) mEq/L Potassium (3.5-5.1) mEq/L Chloride (98-107) mEq/L Carbon Dioxide (23-29) mEq/L BUN (6-20) mg/dL Creatinine (0.70-1.30) mg/dL Est GFR ( Amer) (> 60) Est GFR (Non-Af Amer) (> 60) BUN/Creatinine Ratio (6-26) Glucose (70-105) mg/dL Calculated Osmolality (280-300) Calcium (8.6-10.3) mg/dL Total Bilirubin (0.3-1.0) mg/dL AST (13-39) Units/L ALT (7-52) Units/L Alkaline Phosphatase (34-104) Units/L Troponin I (< 0.04) ng/mL B-Natriuretic Peptide (Less than 100) pg/mL Serum Total Protein (6.4-8.9) g/dL Albumin (3.5-5.7) g/dL Globulin (2.4-3.5) g/dL Albumin/Globulin Ratio (1.1-2.2) Lipase (11-82) Units/L Urine Color Yellow (Yellow) Urine Clarity Clear (Clear) Urine pH 6.0 (5.0-8.0) pH Units Ur Specific [place] 1.015 (1.010-1.025) Urine Protein Negative (Neg-Trace) mg/dL Urine Glucose (UA) Normal (Normal) mg/dL Urine Ketones Negative (Negative) mg/dL Urine Blood Negative (Negative) Urine Nitrite Negative (Negative) Urine Bilirubin Negative (Negative) Urine Urobilinogen Normal (Normal) mg/dL Ur Leukocyte Esterase Negative (Negative) Urine Opiates Screen Negative (Smftpy=631) ng/mL Ur Barbiturates Screen Negative (Iepfur=190) ng/mL Ur Phencyclidine Scrn Negative (Cutoff=25) ng/mL Ur Amphetamines Screen Negative (Dtcbgd=1534) ng/mL U Benzodiazepines Scrn Positive H (Dxjqnq=753) ng/mL Urine Cocaine Screen Negative (Cutoff= 300) ng/mL U Marijuana (THC) Screen Positive H (Cutoff = 50) ng/mL Ur Drug Screen Interp See Below Ethyl Alcohol (Less than 10) mg/dL - Radiology Data Radiology results reviewed: Yes I reviewed the patient's radiology results. Chest X-Ray 04/27/18 20:51 IMPRESSION: 1. Findings suggesting mild pulmonary edema. 2. Pulmonary nodule within the left midlung likely corresponding to nodule on prior CT dated January 07, 2018 recommend follow-up per Fleischner guidelines as noted on CT report at that time. D/ / Arvin Garay MD / Arvin Garay MD Interpreting Provider: Arvin Garay MD Attestation Statement - Attestation Attestation: I, Adrian Oseguera MD, personally evaluated this patient and discussed their management with the resident physician. I reviewed the resident's note and agree with the documented findings, medical decision making, and plan of care. 47-year-old male presented to the emergency department with a complaint of alcohol withdrawal. Patient states he normally drinks a fifth of vodka a day plus several beers. He has not had any vodka since yesterday and had a few beers today to try and control his shakes but it did not help. He complains of uncontrollable shaking and anxiety. Some abdominal cramping. Some dry heaves but no productive vomiting. He also reportedly passed out earlier today. On examination patient is a well-developed morbidly obese male in no acute distress. He is alert and oriented 3. There is no cyanosis or diaphoresis. Patient is somewhat anxious and shaky and jittery. Chest is nontender to palpation. Breath sounds are clear and equal bilaterally. Heart regular with a mild tachycardia. Abdomen is soft and nontender with normal bowel sounds. No gross focal neurological deficits. Labs and x-ray reviewed. Patient received Ativan 2 mg IV 2 doses and also Valium 10 mg by mouth while here in the emergency department. The hospitalist, Dr. Almonte, was consulted and accepted admission of the patient.
[2018-04-27 21:33] LABS: Alanine Aminotransferase 82 Units/L (7-52); Albumin 4.4 g/dL (3.5-5.7); Albumin/Globulin Ratio 1.3 (1.1-2.2); Alkaline Phosphatase 75 Units/L (34-104); Aspartate Amino Transferase 61 Units/L (13-39); BUN/Creatinine Ratio 13 (6-26); Bilirubin,Total 0.4 mg/dL (0.3-1.0); Blood Urea Nitrogen 13 mg/dL (6-20); Calcium 9.7 mg/dL (8.6-10.3); Carbon Dioxide 26 mEq/L (23-29); Chloride 103 mEq/L (98-107); Ethanol 69 mg/dL (Less than 10); Globulin 3.3 g/dL (2.4-3.5); Glucose 163 mg/dL (70-105); Lipase 32 Units/L (11-82); Osmolality,Calculated 294 (280-300); Potassium 3.2 mEq/L (3.5-5.1); Sodium 140 mEq/L (136-145); Total Protein 7.7 g/dL (6.4-8.9); eGFR For Non-African Americans > 60 (> 60)
[2018-04-27 21:40] LABS: Troponin I < 0.03 ng/mL (< 0.04)
[2018-04-27 22:11] LABS: Bilirubin,Urine Negative (Negative); Blood,Urine Negative (Negative); Clarity,Urine Clear (Clear); Color,Urine Yellow (Yellow); Glucose,Urine (UA) Normal (Normal); Ketones,Urine Negative (Negative); Leukocyte Esterase,Urine Negative (Negative); Nitrite,Urine Negative (Negative); Protein,Urine Negative (Neg-Trace); Specific Gravity,Urine 1.015 (1.010-1.025); Urobilinogen,Urine Normal (Normal)
[2018-04-27 22:47] LABS: Amphetamine Screen,Urine Negative ng/mL (Cutoff=1000); Barbiturate Screen,Urine Negative ng/mL (Cutoff=200); Benzodiazepines Screen,Urine Positive ng/mL (Cutoff=200); Cannabinoid Screen,Urine Positive ng/mL (Cutoff = 50); Cocaine Screen,Urine Negative ng/mL (Cutoff= 300); Opiate Screen,Urine Negative ng/mL (Cutoff=300); Phencyclidine Screen,Urine Negative ng/mL (Cutoff=25)
[2018-04-27] MEDS ORDERED: diazePAM 10 MG TABLET PO ONE (23:00)
[2018-04-28] MEDS ORDERED: *HR* LORazepam 1 MG TABLET PO SCH ×2 (01:30→02:00)
[2018-04-28] MEDS ORDERED: Potassium Citrate 10 MEQ TABLET.ER PO ONE (01:45)
[2018-04-28] MEDS ORDERED: *HR* LORazepam 2 MG/ML VIAL IVP PRN ×2 (01:52→07:26)
[2018-04-28] MEDS ORDERED: *HR* Promethazine 25 MG/ML VIAL IVP PRN (01:52)
[2018-04-28] MEDS ORDERED: *HR* Dextrose 50 % in Water (Syg) 50 ML SYRINGE IVP PRN (02:00)
[2018-04-28] MEDS ORDERED: D5% in Water 1,000 ML IVC PRN (02:00)
[2018-04-28] MEDS ORDERED: Dextrose Gel 15 GM/37.5 ML TUBE PO PRN ×2 (02:00)
[2018-04-28] MEDS: *HR* LORazepam 2 MG/ML VIAL IVP PRN ×2 (02:43→06:02)
[2018-04-28 05:52] LABS: Hematocrit 42.2 % (37.5-50.1); Hemoglobin 14.2 g/dL (12.9-16.9); Mean Corpuscular HGB Conc 33.6 g/dL (31.6-35.5); Mean Corpuscular Hemoglobin 30.2 pg (28.0-33.3); Mean Corpuscular Volume 89.8 fL (83.0-100.0); Mean Platelet Volume 10.5 fL (9.4-12.4); Platelet Count 178 K/mcL (140-400); Red Cell Distribution Width 14.2 % (11.5-14.5)
[2018-04-28 07:18] LABS: Alanine Aminotransferase 77 Units/L (7-52); Albumin 3.9 g/dL (3.5-5.7); Albumin/Globulin Ratio 1.2 (1.1-2.2); Alkaline Phosphatase 67 Units/L (34-104); Aspartate Amino Transferase 58 Units/L (13-39); BUN/Creatinine Ratio 17 (6-26); Bilirubin,Total 0.3 mg/dL (0.3-1.0); Blood Urea Nitrogen 12 mg/dL (6-20); Calcium 8.7 mg/dL (8.6-10.3); Carbon Dioxide 28 mEq/L (23-29); Chloride 106 mEq/L (98-107); Globulin 3.2 g/dL (2.4-3.5); Glucose 136 mg/dL (70-105); Magnesium 1.7 mg/dL (1.6-2.6); Osmolality,Calculated 290 (280-300); Phosphorous 2.9 mg/dL (2.7-4.5); Potassium 3.5 mEq/L (3.5-5.1); Sodium 139 mEq/L (136-145); Total Protein 7.1 g/dL (6.4-8.9); eGFR For Non-African Americans > 60 (> 60)
[2018-04-28] MEDS: *HR* Heparin 5,000 UNIT/ML VIAL SQ SCH ×2 (07:56→13:37)
[2018-04-28] MEDS: Insulin LISPRO 300 UNITS/3 ML VIAL SQ SCH ×2 (07:57→12:26)
[2018-04-28] MEDS ORDERED: Vitamin B Complex/Vit C/Vit E 1 EACH TABLET PO SCH (09:00)
[2018-04-28] MEDS ORDERED: Folic Acid 1 MG TABLET PO SCH (09:00)
[2018-04-28] MEDS ORDERED: Thiamine (B-1) 100 MG TABLET PO SCH (09:00)
[2018-04-28] MEDS ORDERED: Thiamine (B-1) 100 MG in 0.9 % Sodium Chloride 50 ML IVPB SCH (09:00)
--- NOTE | 2018-04-28 09:11 | Internal Med History&Physical ---
Date of Encounter: 05/07/18 Time of Encounter: 03:00 Internal Medicine - H&P: HPI Chief complaint: Alcohol Withdrawal History of present illness: Mr. Adams is a 47 year old male with past medical history of alcohol abuse and drug use who presented to the ED with the chief complaint of alcohol withdrawal. States that he has been drinking about a pint of vodka and in 4-6 beers a day. Patient reports that he has been under a lot of stress as of late involving his girlfriend and family. States that he quit using heroin about a month and a half ago, but is still using cocaine and alcohol. His last drink was approximately 6 hours ago. States that he feels shaky associated with abdominal cramping and nausea. He reports 1 episode witnessed seizure activity in the remote past associated with his withdrawal. Patient acknowledges that he just needs to quit drinking. He denies any chest pain or shortness breath, fever or chills. Past Med Surg Social Fam HX - Past Medical History Medical history: diabetes, hypertension Additional medical history: Cellulitis Psychiatric history: depression - Past Surgical History Surgical History: no surgical history Additional surgical history: n/a - Social History Smoking Status: Current every day smoker Packs per day: 1 Smokeless Tobacco Status: No Alcohol use: heavy, recent Drug use: opiates, marijuana, IV Drug Use, prescription drug abuse - Family History Father Living Status: Hx Family Cardiac Disorders: Yes (SD in 50s) Mother Living Status: Hx Family Cardiac Disorders: Yes (SD in 50s) Internal Medicine - H&P: Meds No Known Home Drugs 04/27/18 [History] 3 Allergy/AdvReac Type Severity Reaction Status Date / Time Amoxicillin Allergy Hives Verified 03/08/18 09:27 Penicillins Allergy Hives Verified 03/08/18 09:27 quetiapine [From Seroquel] Allergy Hives Verified 03/08/18 09:27 chlordiazepoxide AdvReac Gastrointestinal Verified 03/08/18 09:27 [From Librium] Upset All Systems PM: A 10-system review of systems was performed and is negative for pertinent findings except as documented above in the HPI. - Constitutional Constitutional: no chills, no fever(s), no night sweats - EENT Eyes: no change in vision, no discharge, no pain, no photophobia Ears: no ear discharge, no ear pain, no tinnitus Nose, mouth and throat: no dysphagia, no nasal discharge, no neck pain, no sore throat - Cardiovascular Cardiovascular ROS IM: no chest pain, no diaphoresis, no dyspnea, no lightheadedness, no palpitations, no syncope - Respiratory Respiratory: no cough, no dyspnea, no wheezing, no excessive phlegm production - Gastrointestinal Gastrointestinal: no abdominal pain, no diarrhea, no hematemesis, no hematochezia, no melena, no nausea, no vomiting - Musculoskeletal Musculoskeletal ROS IM: no numbness, no tingling - Integumentary Integumentary IM: no rash, no unusual bruising - Neurological Neurological ROS: no confusion, no convulsions, no focal weakness, no numbness, no tingling, no tremor(s) - Hematologic/Lymphatic Hematologic/Lymphatic: no easy bruising - Constitutional Vitals: Temp Pulse Resp BP Pulse Ox 98.4 F 87 22 165/72 96 04/28/18 07:00 04/28/18 07:00 04/28/18 07:00 04/28/18 07:00 04/28/18 07:00 Exam: General: Alert and oriented 3. Lying in bed. Mild tremors visible. Skin:Normal color, no rash, no lesions. HEENT:EOM, pupils equal, round and reactive. Cardiovascular:Normal S1 & S2, no rubs, murmurs or gallops. No JVD. Pulse regular. Lungs:Normal breath sounds, no wheezes or crackles. Abdomen:Soft, non-tender, no rigidity. Extremities:No deformity, no edema or tenderness, no joint swelling or clubbing. Neurological:Normal cognition and motor skills. Mild tremors in the upper extremities Pulses:Carotid and radial pulses normal +2. Rest of the physical exam is non contributory Internal Med - H&P Results - Labs CBC & Chem 7: 04/28/18 05:37 04/28/18 06:47 Labs: Short CBC 04/28/18 Range/Units 05:37 WBC 6.7 (4.3-11.1) K/mcL Hgb 14.2 (12.9-16.9) g/dL Hct 42.2 (37.5-50.1) % Plt Count 178 (140-400) K/mcL BMP 04/28/18 06:47 Sodium 139 Potassium 3.5 Chloride 106 Carbon Dioxide 28 BUN 12 Creatinine 0.70 Glucose 136 H Calcium 8.7 Liver Function 04/28/18 Range/Units 06:47 Total Bilirubin 0.3 (0.3-1.0) mg/dL AST 58 H (13-39) Units/L ALT 77 H (7-52) Units/L Alkaline Phosphatase 67 (34-104) Units/L Albumin 3.9 (3.5-5.7) g/dL - Assessment and plan (1) Alcohol withdrawal Status: Acute Assessment and plan: Patient started on CIWA alcohol with Ativan as needed. Patient received one banana bag as well as IV fluids. We will check electrolytes and replete as needed. Consider discussion of outpatient rehabilitation Qualifiers: Complication of substance-induced condition: with unspecified complication Qualified Code(s): F10.239 - Alcohol dependence with withdrawal, unspecified (2) Cocaine abuse Status: Chronic Assessment and plan: Recent history of cocaine abuse. No evidence of toxicity. Consider discussing outpatient rehabilitation (3) Hypokalemia Status: Resolved Assessment and plan: Replete potassium (4) Diabetes mellitus Status: Chronic Assessment and plan: Check blood glucose. Insulin sliding scale. Qualifiers: Diabetes mellitus type: type 2 Diabetes mellitus superintendent [employer] insulin use: without superintendent [employer] use Diabetes mellitus complication status: without complication Qualified Code(s): E11.9 - Type 2 diabetes mellitus without complications (5) Hypertension Status: Resolved Assessment and plan: Monitor. Consider starting on antihypertensive IF blood pressure remains elevated. Unclear if patient is on any home antihypertensives. May need to confirm with family Qualifiers: Hypertension type: essential hypertension Qualified Code(s): I10 - Essential (primary) hypertension - Time Spent With Patient Total time spent is greater than 50% in coordination of care (as documented) at patient's floor/unit and/or counseling patient:
[2018-04-28 16:07] VITALS: BP 146/91
--- NOTE | 2018-04-28 16:20 | Electrocardiograph Report ---
[address] [address] Test Date: 2018-04-27 Pat Name: Chinedu Adams Department: Room: 2A13 Gender: M Funding Analyst: : 1970 Requested By: [id number] Order Number: [id number] Reading MD: Delia Navas Measurements Intervals [place] Rate: 101 P: 52 [place]: 157 QRS: 98 QRSD: 109 T: 23 QT: 387 QTc: 502 Interpretive Statements Sinus tachycardia Borderline right axis deviation Prolonged QT interval Electronically Signed On 04-28-2018 16:18:37 EDT by Delia Navas
--- NOTE | 2018-04-28 16:54 | Internal Med Progress Note ---
Hospitalist Progress Note - Encounter Date of Encounter: 04/29/18 Time of Encounter: 10:45 - Subjective Interval History: Patient seen and examined this morning. He is awake alert and responding to question appropriately. Denies new symptoms. Feels tremors are still present. Denies palpitation, N/V, halucination, headache or visual disturbance. - Exam Vitals: Temp Pulse Resp BP Pulse Ox 97.9 F 92 20 146/91 97 04/28/18 16:02 04/28/18 16:02 04/28/18 16:02 04/28/18 16:02 04/28/18 16:02 Exam: Const: obese. appear as state age. Eyes: PERRL, no conjunctival injection ENMT: Atraumatic external nose and ears. Moist MM. Neck: Symmetric, trachea midline, No thyromegaly CVS: +S1/S2, No murmurs or gallops. Regular rate and rhythm. Peripheral pulses 2 + and equal in all extremities. RESP: Unlabored respiratory effort. Clear to auscultation bilaterally GI: Nontender/Nondistended (NTND), No hepatosplenomegaly. MSK: Normocephalic/Atraumatic, Extremities w/o deformity. No cyanosis or clubbing Skin: Warm, Dry. No rashes or lesions. Neuro: administration professional II-XII grossly intact. Sensation grossly intact. Psych: Awake, Alert, & Oriented (AAO) x3. Appropriate mood and affect - Assessment and Plan (1) Alcohol withdrawal Status: Acute Assessment and Plan: Continue on CIWA alcohol protocol with Ativan as needed. Continue one banana bag as well as IV fluids. We will check electrolytes and replete as needed. Consider discussion of outpatient rehabilitation (2) Cocaine abuse Status: Acute Assessment and Plan: Recent history of cocaine abuse. Discussed about cessation and available support. (3) Diabetes mellitus Status: Chronic Assessment and Plan: Continue Insulin sliding scale. (4) Hypertension Status: Chronic Assessment and Plan: Unclear if patient is on any home antihypertensives. Has many elevated reading. Could also be from alcohol withdrawal. Will need to follow up outpatient. Continue to monitor for now. (5) Hypokalemia Status: Acute Assessment and Plan: Will Replete potassium as needed - Time Spent with Patient Total time spent is greater than 50% in coordination of care (as documented) at patient's floor/unit and/or counseling patient: Internal Medicine: Result - Labs CBC & Chem 7: 04/28/18 05:37 04/28/18 06:47 Labs: Short CBC 04/28/18 Range/Units 05:37 WBC 6.7 (4.3-11.1) K/mcL Hgb 14.2 (12.9-16.9) g/dL Hct 42.2 (37.5-50.1) % Plt Count 178 (140-400) K/mcL BMP 04/28/18 06:47 Sodium 139 Potassium 3.5 Chloride 106 Carbon Dioxide 28 BUN 12 Creatinine 0.70 Glucose 136 H Calcium 8.7 Liver Function 04/28/18 Range/Units 06:47 Total Bilirubin 0.3 (0.3-1.0) mg/dL AST 58 H (13-39) Units/L ALT 77 H (7-52) Units/L Alkaline Phosphatase 67 (34-104) Units/L Albumin 3.9 (3.5-5.7) g/dL Consult Discharge Plan - Plan Referrals: NONE,PCP [Primary Care Provider] - (1) Alcohol withdrawal Qualifiers: Complication of substance-induced condition: with unspecified complication Qualified Code(s): F10.239 - Alcohol dependence with withdrawal, unspecified (3) Diabetes mellitus Qualifiers: Diabetes mellitus type: type 2 Diabetes mellitus emt intermediate insulin use: without emt intermediate use Diabetes mellitus complication status: without complication Qualified Code(s): E11.9 - Type 2 diabetes mellitus without complications (4) Hypertension Qualifiers: Hypertension type: essential hypertension Qualified Code(s): I10 - Essential (primary) hypertension
--- NOTE | 2018-04-28 17:37 | Event Note ---
Date of Encounter: 04/28/18 Time of Encounter: 04:44 patient wanted to leave AMA, mentioning that he was not getting enough lorazepam. Patient was being evaluated according to [facility] protocol for alcohol withdrawal and getting needed lorazepam accordingly. However he felt he was not to give getting enough lorazepam. He was adamant about leaving if he did not get more lorazepam. Patient decided to sign out AMA. The risk of leaving the hospital was discussed with the patient, however he was insistent on leaving. He was asked to return to the hospital if any signs of seizures were noticed.
[2018-04-29] MEDS ORDERED: *HR* LORazepam 1 MG TABLET PO SCH (00:01)
--- NOTE | 2018-04-29 05:04 | Discharge Summary ---
Date of Encounter: 04/29/18 Time of Encounter: 05:50 - Discharge Diagnosis (1) Alcohol withdrawal Priority: Primary Status: Acute Assessment and Plan: Was on CIWA protocol. Left AMA because 'he was not getting enough lorazepam as he wanted'. Discussed risk of leaving without proper treatment including withdrawal seizure. Aware of the risk of leaving Qualifiers: Complication of substance-induced condition: with unspecified complication Qualified Code(s): F10.239 - Alcohol dependence with withdrawal, unspecified (2) Cocaine abuse Priority: Secondary Status: Chronic Assessment and Plan: Recent history of cocaine abuse. Discussed about cessation and available support. (3) Diabetes mellitus Priority: Secondary Status: Chronic Assessment and Plan: Ask to follow up outpatient. Qualifiers: Diabetes mellitus type: type 2 Diabetes mellitus bed bug exterminator insulin use: without bed bug exterminator use Diabetes mellitus complication status: without complication Qualified Code(s): E11.9 - Type 2 diabetes mellitus without complications (4) Hypertension Priority: Secondary Status: Resolved Assessment and Plan: Unclear if patient is on any home antihypertensives. Has many elevated reading in hospital. Could also be from alcohol withdrawal. Will need to follow up outpatient. Qualifiers: Hypertension type: essential hypertension Qualified Code(s): I10 - Essential (primary) hypertension (5) Hypokalemia Priority: Secondary Status: Resolved Assessment and Plan: resolved Hospital course: Mr. Adams is a 47 year old male - Time Spent with Patient Total time spent providing and/or coordinating discharge services: - Discharge Medications Home Medications: No Known Home Drugs 04/27/18 [History] Allergies/Adverse Reactions: 3 Allergy/AdvReac Type Severity Reaction Status Date / Time Amoxicillin Allergy Hives Verified 03/08/18 09:27 Penicillins Allergy Hives Verified 03/08/18 09:27 quetiapine [From Seroquel] Allergy Hives Verified 03/08/18 09:27 chlordiazepoxide AdvReac Gastrointestinal Verified 03/08/18 09:27 [From Librium] Upset Date of admission: 04/27/18 23:15 Primary care physician: PCP NONE Consults: 04/28/18 01:55 Consult to Sandblasting Supervisor [CONS] Routine Reason for SW Consult: ETOH USE Discharging clinician: Gisela Keith - Constitutional Vitals: Temp Pulse Resp BP Pulse Ox 97.9 F 92 20 146/91 97 04/28/18 16:02 04/28/18 16:02 04/28/18 16:02 04/28/18 16:02 04/28/18 16:02 Exam: Const: obese. appear as state age. Eyes: PERRL, no conjunctival injection ENMT: Atraumatic external nose and ears. Moist MM. Neck: Symmetric, trachea midline, No thyromegaly CVS: +S1/S2, No murmurs or gallops. Regular rate and rhythm. Peripheral pulses 2 + and equal in all extremities. RESP: Unlabored respiratory effort. Clear to auscultation bilaterally GI: Nontender/Nondistended (NTND), No hepatosplenomegaly. MSK: Normocephalic/Atraumatic, Extremities w/o deformity. No cyanosis or clubbing Skin: Warm, Dry. No rashes or lesions. 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 Sensation grossly intact. Mild tremor on hand. No tongue fasiculations. Psych: Awake, Alert, & Oriented (AAO) x3. aggressive and upset - Patient Status Disposition: Left Against Medical Advice Condition: Fair - Discharge Instructions Follow Up With: NONE,PCP [Primary Care Provider] -
[2018-04-30] MEDS ORDERED: *HR* LORazepam 1 MG TABLET PO SCH (00:01)
[2018-05-01] MEDS ORDERED: *HR* LORazepam 1 MG TABLET PO SCH (09:00)
== END 2018-04-28 16:55 | disposition left against medical advice (07) ==
LOC: EMEROOARM 20:43 → 2ANU 20:43 → SUATTDRO 04-28 01:52
PROVIDERS: ADMIT Internal Medicine; ATTEND Internal Medicine

== ENCOUNTER 2018-05-15 13:05 | Inpatient (IN) ==
[2018-05-15] MEDS ORDERED: Folic Acid 1 MG in D5% in Water 50 ML IVPB ONE (13:16)
[2018-05-15] MEDS ORDERED: 0.9 % Sodium Chloride 1,000 ML IVC ONE (13:16)
[2018-05-15] MEDS ORDERED: *HR* LORazepam 2 MG/ML VIAL IVP ONE (13:16)
[2018-05-15] MEDS ORDERED: Thiamine (B-1) 100 MG in D5% in Water 50 ML IVPB ONE (13:16)
--- NOTE | 2018-05-15 14:04 | Emergency Department Note ---
Disposition Clinical Impression: Hypokalemia Alcohol dependence with withdrawal Qualifiers: Complication of substance-induced condition: uncomplicated Qualified Code(s): F10.230 - Alcohol dependence with withdrawal, uncomplicated Disposition: Admitted As Inpatient Condition: Good Time of Disposition: 16:11 Alcohol HPI - General Chief Complaint: ED Alcohol Abuse Stated Complaint: ETOH Withdrawl Time Seen by Provider: 05/15/18 13:12 Source: patient Mode of arrival: ambulatory Limitations: no limitations Nursing Notes Reviewed: Yes Vital Signs Reviewed: Yes - History of Present Illness HPI Narrative: 47-year-old male history of alcohol abuse presents emergency department with concerns for alcohol withdrawal. He states he drinks roughly 12 to 24 beers today. His last drink was yesterday at noon roughly 24 hours ago. He is been feeling very shaky. He reports a history of withdrawal as well as seizures several years ago. He has been attempting to quit drinking. States today he was also sitting down when he stood up he felt lightheaded and may have passed out. His friend was with him and was able to lay him down. He denies any headache or neck pain. He admits to using heroin and was told that it may have been laced with methamphetamine. Denies any chest pain at this time. Denies any shortness of breath. Denies any other complaints at this time. Pt Subjective Complaint: alcohol withdrawal - Related Data Home Medications Medication Instructions Recorded Confirmed No Known Home Drugs 04/27/18 05/15/18 Allergies Allergy/AdvReac Type Severity Reaction Status Date / Time Amoxicillin Allergy Hives Verified 05/15/18 13:10 Penicillins Allergy Hives Verified 05/15/18 13:10 quetiapine [From Seroquel] Allergy Hives Verified 05/15/18 13:10 chlordiazepoxide AdvReac Gastrointestinal Verified 05/15/18 13:10 [From Librium] Upset All systems ED: reviewed and negative except as stated. Review of Systems: As Per HPI Constitutional: Denies: fever, chills, weakness Cardiovascular: Denies: chest pain Respiratory: Denies: cough, dyspnea Gastrointestinal: Reports: nausea. Denies: abdominal pain, vomiting Genitourinary: Denies: dysuria Musculoskeletal: Denies: back pain Neurological: Denies: headache, weakness, numbness Psychiatric: Reports: anxiety. Denies: suicidal thoughts, homicidal thoughts Past Medical History - Past Medical History Attestation: Yes The following information was validated with the patient. Source: patient Medical history: Reports: diabetes, hypertension Surgical history: Reports: no surgical history Psychiatric history: Reports: depression - Social History Smoking Status: Current every day smoker Smokeless Tobacco Status: No Alcohol use: Reports: heavy, recent Drug use: Reports: opiates, marijuana, IV Drug Use, prescription drug abuse Physical Exam - General Limitations: no limitations General appearance: anxious, in distress, obese, other (Patient is tremulous) - Head Head exam: atraumatic, normocephalic, normal inspection - Eye Eye exam: Present: normal appearance, PERRL, EOMI. Absent: scleral icterus, nystagmus - ENT ENT exam: normal exam, normal oropharynx, mucous membranes moist - Neck Neck exam: Present: normal inspection, full ROM, trachea midline. Absent: tenderness - Chest Chest inspection: Present: normal inspection, symmetric chest wall rise - Respiratory Respiratory exam: Present: normal lung sounds bilaterally. Absent: respiratory distress, wheezes - Cardiovascular Cardiovascular exam: Present: normal rhythm, tachycardia, normal heart sounds - Abdominal Exam Abdominal exam: Present: soft (Obese), Non-Tender, normal bowel sounds. Absent : tenderness, distention, guarding, rebound, rigidity Abdominal tenderness: Absent: RUQ - Extremities Exam Extremities exam: Present: normal inspection, full ROM, normal capillary refill , other (Tremulous). Absent: tenderness, pedal edema - Neurological Exam Neurological exam: Present: alert, oriented X3, CN II-XII intact, other ( Tremulous) - Psychiatric Psychiatric exam: Present: anxious - Skin Skin exam: Present: warm, dry, intact, normal color. Absent: diaphoresis Course Course Narrative: Patient has a history of alcohol abuse and admits his last drink was over 24 hours ago. He has a history of withdrawal and is currently experiencing some symptoms as he is very tremulous tachycardic and anxious. Will give him Ativan and treat him as such. Thymine folate IV fluids and some laboratory workup. Does report an episode of passing out he denies any head injury. He does not however recall the entire events. Will also obtain a CT of his head. - Reevaluation(s) Reevaluation #1: Patient was given a dose of Ativan is appearing more comfortable however still tremulous in his heart rate has improved. Patient will require admission for possible alcohol withdrawal and placed on CIWA. Review of his labs shows positive for benzodiazepine, opiate, methamphetamine and marijuana use. His alcohol level is less than 10. Troponin lesson 0.03. Chest x-ray unremarkable. His potassium is low at 2.9. Will replete with additional potassium chloride. He is otherwise stable for admission continue treatment for his alcohol withdrawal. Impression is alcohol withdrawal and hypokalemia. - Consultations Consultation #1: Spoke with on-call hospitalist funmilayo Hudson to admit for ETOH withdrawal and hypokalemia. No further orders at this time Time: 16:12 Vital Signs Temperature 98.1 F 05/15/18 13:08 Pulse Rate 112 05/15/18 13:08 Respiratory Rate 22 05/15/18 13:08 Blood Pressure 153/94 05/15/18 13:08 O2 Sat by Pulse Oximetry 96 05/15/18 13:08 Temperature 98.4 F 05/15/18 19:50 Pulse Rate 88 05/15/18 19:50 Respiratory Rate 16 05/15/18 19:50 Blood Pressure 111/72 05/15/18 19:50 O2 Sat by Pulse Oximetry 94 05/15/18 19:50 Oxygen Delivery Oxygen Delivery Room Air Alcohol - MDM Narrative Medical decision making narrative: Patient was discussed with my attending physician who agrees with ED management and final disposition. They independently evaluated the patient. Please refer to their attestation to this encounter for additional information. This note was generated by [employer] voice recognition software and as a result grammatical or spelling errors may occur using this program. - Medical Records Medical records reviewed: Yes I reviewed the patient's medical records. - Lab Data Lab results reviewed: Yes I reviewed the patient's lab results. Result diagrams: 05/15/18 14:04 05/15/18 14:04 Lab Results 05/15/18 05/15/18 05/15/18 Range/Units 14:04 14:04 14:04 WBC 7.7 (4.3-11.1) K/mcL RBC 4.99 (4.19-5.50) M/mcL Hgb 15.0 (12.9-16.9) g/dL Hct 43.6 (37.5-50.1) % MCV 87.4 (83.0-100.0) fL MCH 30.1 (28.0-33.3) pg MCHC 34.4 (31.6-35.5) g/dL RDW 13.8 (11.5-14.5) % Plt Count 205 (140-400) K/mcL MPV 10.0 (9.4-12.4) fL Immature Gran % 0.3 (0-4) % Seg Neutrophils % 69.4 % Lymphocytes % 19.4 % Monocytes % 8.1 % Eosinophils % 2.1 % Basophils % 0.7 % Neutrophils # 5.3 (1.6-8.9) K/mcL Lymphocytes # 1.5 (0.6-4.6) K/mcL Monocytes # 0.6 (0.0-1.3) K/mcL Eosinophils # 0.2 (0.0-0.6) K/mcL Basophils # 0.1 (0.0-0.2) K/mcL PT 12.8 H (9.4-12.1) Seconds INR 1.1 Sodium 138 (136-145) mEq/L Potassium 2.9 L (3.5-5.1) mEq/L Chloride 102 (98-107) mEq/L Carbon Dioxide 27 (23-29) mEq/L BUN 10 (6-20) mg/dL Creatinine 0.90 (0.70-1.30) mg/dL Est GFR ( Amer) > 60 (> 60) Est GFR (Non-Af Amer) > 60 (> 60) BUN/Creatinine Ratio 11 (6-26) Glucose 109 H (70-105) mg/dL Calculated Osmolality 286 (280-300) Calcium 9.7 (8.6-10.3) mg/dL Phosphorus 2.0 L (2.7-4.5) mg/dL Magnesium 1.5 L (1.6-2.6) mg/dL Total Bilirubin 0.6 (0.3-1.0) mg/dL AST 73 H (13-39) Units/L ALT 86 H (7-52) Units/L Alkaline Phosphatase 77 (34-104) Units/L Ammonia (16-53) mcmol/L Troponin I < 0.03 (< 0.04) ng/mL Serum Total Protein 7.9 (6.4-8.9) g/dL Albumin 4.2 (3.5-5.7) g/dL Globulin 3.7 H (2.4-3.5) g/dL Albumin/Globulin Ratio 1.1 (1.1-2.2) Lipase 16 (11-82) Units/L TSH 0.653 (0.340-5.600) mcIU/mL Urine Color (Yellow) Urine Clarity (Clear) Urine pH (5.0-8.0) pH Units Ur Specific [place] (1.010-1.025) Urine Protein (Neg-Trace) mg/dL Urine Glucose (UA) (Normal) mg/dL Urine Ketones (Negative) mg/dL Urine Blood (Negative) Urine Nitrite (Negative) Urine Bilirubin (Negative) Urine Urobilinogen (Normal) mg/dL Ur Leukocyte Esterase (Negative) Urine Microscopic RBC (0-3) per hpf Urine Microscopic WBC (0-3) per hpf Ur Squamous Epith Cells (None-Few) per lpf Urine Bacteria (None-Few) per hpf Hyaline Casts (None-Few) per lpf Ur Culture Indicated? (NO) Urine Opiates Screen (Ovdabe=622) ng/mL Ur Barbiturates Screen (Pgmmfi=327) ng/mL Ur Phencyclidine Scrn (Cutoff=25) ng/mL Ur Amphetamines Screen (Qphxjn=1313) ng/mL U Benzodiazepines Scrn (Duyimk=348) ng/mL Urine Cocaine Screen (Cutoff= 300) ng/mL U Marijuana (THC) Screen (Cutoff = 50) ng/mL Ur Drug Screen Interp Ethyl Alcohol < 10 (Less than 10) mg/dL Specimen Rejected 05/15/18 05/15/18 05/15/18 Range/Units 15:30 15:30 16:25 WBC (4.3-11.1) K/mcL RBC (4.19-5.50) M/mcL Hgb (12.9-16.9) g/dL Hct (37.5-50.1) % MCV (83.0-100.0) fL MCH (28.0-33.3) pg MCHC (31.6-35.5) g/dL RDW (11.5-14.5) % Plt Count (140-400) K/mcL MPV (9.4-12.4) fL Immature Gran % (0-4) % Seg Neutrophils % % Lymphocytes % % Monocytes % % Eosinophils % % Basophils % % Neutrophils # (1.6-8.9) K/mcL Lymphocytes # (0.6-4.6) K/mcL Monocytes # (0.0-1.3) K/mcL Eosinophils # (0.0-0.6) K/mcL Basophils # (0.0-0.2) K/mcL PT (9.4-12.1) Seconds INR Sodium (136-145) mEq/L Potassium (3.5-5.1) mEq/L Chloride (98-107) mEq/L Carbon Dioxide (23-29) mEq/L BUN (6-20) mg/dL Creatinine (0.70-1.30) mg/dL Est GFR ( Amer) (> 60) Est GFR (Non-Af Amer) (> 60) BUN/Creatinine Ratio (6-26) Glucose (70-105) mg/dL Calculated Osmolality (280-300) Calcium (8.6-10.3) mg/dL Phosphorus (2.7-4.5) mg/dL Magnesium (1.6-2.6) mg/dL Total Bilirubin (0.3-1.0) mg/dL AST (13-39) Units/L ALT (7-52) Units/L Alkaline Phosphatase (34-104) Units/L Ammonia (16-53) mcmol/L Troponin I (< 0.04) ng/mL Serum Total Protein (6.4-8.9) g/dL Albumin (3.5-5.7) g/dL Globulin (2.4-3.5) g/dL Albumin/Globulin Ratio (1.1-2.2) Lipase (11-82) Units/L TSH (0.340-5.600) mcIU/mL Urine Color Dark Yellow (Yellow) Urine Clarity Clear (Clear) Urine pH 6.5 (5.0-8.0) pH Units Ur Specific [place] 1.014 (1.010-1.025) Urine Protein 30 H (Neg-Trace) mg/dL Urine Glucose (UA) Normal (Normal) mg/dL Urine Ketones Negative (Negative) mg/dL Urine Blood Negative (Negative) Urine Nitrite Negative (Negative) Urine Bilirubin Negative (Negative) Urine Urobilinogen Normal (Normal) mg/dL Ur Leukocyte Esterase Negative (Negative) Urine Microscopic RBC 0-3 (0-3) per hpf Urine Microscopic WBC 3-5 H (0-3) per hpf Ur Squamous Epith Cells Many H (None-Few) per lpf Urine Bacteria None Seen (None-Few) per hpf Hyaline Casts Few (None-Few) per lpf Ur Culture Indicated? NO (NO) Urine Opiates Screen Positive H (Myskpq=754) ng/mL Ur Barbiturates Screen Negative (Vyuknh=906) ng/mL Ur Phencyclidine Scrn Negative (Cutoff=25) ng/mL Ur Amphetamines Screen Positive H (Hvlzng=4851) ng/mL U Benzodiazepines Scrn Positive H (Axpcbs=634) ng/mL Urine Cocaine Screen Negative (Cutoff= 300) ng/mL U Marijuana (THC) Screen Positive H (Cutoff = 50) ng/mL Ur Drug Screen Interp See Below Ethyl Alcohol (Less than 10) mg/dL Specimen Rejected Hemolyzed 05/15/18 Range/Units 16:44 WBC (4.3-11.1) K/mcL RBC (4.19-5.50) M/mcL Hgb (12.9-16.9) g/dL Hct (37.5-50.1) % MCV (83.0-100.0) fL MCH (28.0-33.3) pg MCHC (31.6-35.5) g/dL RDW (11.5-14.5) % Plt Count (140-400) K/mcL MPV (9.4-12.4) fL Immature Gran % (0-4) % Seg Neutrophils % % Lymphocytes % % Monocytes % % Eosinophils % % Basophils % % Neutrophils # (1.6-8.9) K/mcL Lymphocytes # (0.6-4.6) K/mcL Monocytes # (0.0-1.3) K/mcL Eosinophils # (0.0-0.6) K/mcL Basophils # (0.0-0.2) K/mcL PT (9.4-12.1) Seconds INR Sodium (136-145) mEq/L Potassium (3.5-5.1) mEq/L Chloride (98-107) mEq/L Carbon Dioxide (23-29) mEq/L BUN (6-20) mg/dL Creatinine (0.70-1.30) mg/dL Est GFR ( Amer) (> 60) Est GFR (Non-Af Amer) (> 60) BUN/Creatinine Ratio (6-26) Glucose (70-105) mg/dL Calculated Osmolality (280-300) Calcium (8.6-10.3) mg/dL Phosphorus (2.7-4.5) mg/dL Magnesium (1.6-2.6) mg/dL Total Bilirubin (0.3-1.0) mg/dL AST (13-39) Units/L ALT (7-52) Units/L Alkaline Phosphatase (34-104) Units/L Ammonia 69 H (16-53) mcmol/L Troponin I (< 0.04) ng/mL Serum Total Protein (6.4-8.9) g/dL Albumin (3.5-5.7) g/dL Globulin (2.4-3.5) g/dL Albumin/Globulin Ratio (1.1-2.2) Lipase (11-82) Units/L TSH (0.340-5.600) mcIU/mL Urine Color (Yellow) Urine Clarity (Clear) Urine pH (5.0-8.0) pH Units Ur Specific [place] (1.010-1.025) Urine Protein (Neg-Trace) mg/dL Urine Glucose (UA) (Normal) mg/dL Urine Ketones (Negative) mg/dL Urine Blood (Negative) Urine Nitrite (Negative) Urine Bilirubin (Negative) Urine Urobilinogen (Normal) mg/dL Ur Leukocyte Esterase (Negative) Urine Microscopic RBC (0-3) per hpf Urine Microscopic WBC (0-3) per hpf Ur Squamous Epith Cells (None-Few) per lpf Urine Bacteria (None-Few) per hpf Hyaline Casts (None-Few) per lpf Ur Culture Indicated? (NO) Urine Opiates Screen (Mzenmt=996) ng/mL Ur Barbiturates Screen (Mjbjrq=738) ng/mL Ur Phencyclidine Scrn (Cutoff=25) ng/mL Ur Amphetamines Screen (Hhugib=4255) ng/mL U Benzodiazepines Scrn (Wcebsr=273) ng/mL Urine Cocaine Screen (Cutoff= 300) ng/mL U Marijuana (THC) Screen (Cutoff = 50) ng/mL Ur Drug Screen Interp Ethyl Alcohol (Less than 10) mg/dL Specimen Rejected - Radiology Data Radiology results reviewed: Yes I reviewed the patient's radiology results. Chest X-Ray 05/15/18 13:35 IMPRESSION: No acute process. D/ / 05/15/2018 14:23:11 Travis Friedman MD / abbie Interpreting Provider: Travis Friedman MD Head CT 05/15/18 13:35 IMPRESSION: No acute intracranial abnormality. D/ / Swathi Henderson MD / Swathi Henderson MD Interpreting Provider: Swathi Henderson MD - EKG Data EKG attestation: Yes I reviewed and interpreted this EKG. EKG results narrative: EKG performed 05/15/2018 at 1347 normal sinus rhythm 96 beats per minute, normal axis, no ST elevation or depression, no delta waves, no Brugada pattern, intervals within normal limits. Compared to prior EKG performed 01/25/2018 shows similar consistent findings of sinus tachycardia 101 beats per minute with no acute ischemic changes.
[2018-05-15 14:23] LABS: Basophils # 0.1 K/mcL (0.0-0.2); Basophils % 0.7 %; Eosinophils # 0.2 K/mcL (0.0-0.6); Eosinophils % 2.1 %; Hematocrit 43.6 % (37.5-50.1); Immature Granulocytes % 0.3 % (0-4); Lymphocytes # 1.5 K/mcL (0.6-4.6); Lymphocytes % 19.4 %; Mean Corpuscular HGB Conc 34.4 g/dL (31.6-35.5); Mean Corpuscular Hemoglobin 30.1 pg (28.0-33.3); Mean Corpuscular Volume 87.4 fL (83.0-100.0); Monocytes # 0.6 K/mcL (0.0-1.3); Monocytes % 8.1 %; Neutrophils # 5.3 K/mcL (1.6-8.9); Platelet Count 205 K/mcL (140-400); Red Blood Count 4.99 M/mcL (4.19-5.50); Red Cell Distribution Width 13.8 % (11.5-14.5); Segmented Neutrophils % 69.4 %
[2018-05-15 14:28] LABS: INR 1.1; Prothrombin Time 12.8 Seconds (9.4-12.1)
[2018-05-15 14:49] LABS: Troponin I < 0.03 ng/mL (< 0.04)
[2018-05-15 15:00] LABS: Thyroid Stimulating Hormone 0.653 mcIU/mL (0.340-5.600)
[2018-05-15 15:12] LABS: Alanine Aminotransferase 86 Units/L (7-52); Albumin 4.2 g/dL (3.5-5.7); Albumin/Globulin Ratio 1.1 (1.1-2.2); Alkaline Phosphatase 77 Units/L (34-104); Aspartate Amino Transferase 73 Units/L (13-39); BUN/Creatinine Ratio 11 (6-26); Bilirubin,Total 0.6 mg/dL (0.3-1.0); Blood Urea Nitrogen 10 mg/dL (6-20); Calcium 9.7 mg/dL (8.6-10.3); Carbon Dioxide 27 mEq/L (23-29); Chloride 102 mEq/L (98-107); Globulin 3.7 g/dL (2.4-3.5); Glucose 109 mg/dL (70-105); Lipase 16 Units/L (11-82); Magnesium 1.5 mg/dL (1.6-2.6); Osmolality,Calculated 286 (280-300); Potassium 2.9 mEq/L (3.5-5.1); Sodium 138 mEq/L (136-145); Total Protein 7.9 g/dL (6.4-8.9); eGFR For Non-African Americans > 60 (> 60)
--- NOTE | 2018-05-15 15:29 | Emergency Department Note ---
Disposition Clinical Impression: Alcohol dependence with withdrawal Qualifiers: Complication of substance-induced condition: uncomplicated Qualified Code(s): F10.230 - Alcohol dependence with withdrawal, uncomplicated Disposition: Admitted As Inpatient Condition: Good Referrals: NONE,PCP [Primary Care Provider] - Forms: ED Satisfaction Letter General Adult HPI - General Chief complaint: ED Alcohol Abuse Stated complaint: ETOH Withdrawl Time Seen by Provider: 05/15/18 13:12 Source: patient Mode of arrival: ambulatory Limitations: no limitations - History of Present Illness Pain Scale: 8 - Related Data Home Medications Medication Instructions Recorded Confirmed No Known Home Drugs 04/27/18 05/15/18 Allergies Allergy/AdvReac Type Severity Reaction Status Date / Time Amoxicillin Allergy Hives Verified 05/15/18 13:10 Penicillins Allergy Hives Verified 05/15/18 13:10 quetiapine [From Seroquel] Allergy Hives Verified 05/15/18 13:10 chlordiazepoxide AdvReac Gastrointestinal Verified 05/15/18 13:10 [From Librium] Upset Constitutional: Denies: fever, chills, weakness Cardiovascular: Denies: chest pain Respiratory: Denies: cough, dyspnea Gastrointestinal: Reports: nausea. Denies: abdominal pain, vomiting Genitourinary: Denies: dysuria Musculoskeletal: Denies: back pain Neurological: Denies: headache, weakness, numbness Psychiatric: Reports: anxiety. Denies: suicidal thoughts, homicidal thoughts Past Medical History - Past Medical History Medical history: Reports: diabetes, hypertension Surgical history: Reports: no surgical history Psychiatric history: Reports: depression - Social History Smoking Status: Current every day smoker Smokeless Tobacco Status: No Alcohol use: Reports: heavy, recent Drug use: Reports: opiates, marijuana, IV Drug Use, prescription drug abuse Physical Exam - General Limitations: no limitations General appearance: anxious, in distress, obese, other (Patient is tremulous) Course Vital Signs Temperature 98.1 F 05/15/18 13:08 Pulse Rate 112 05/15/18 13:08 Respiratory Rate 22 05/15/18 13:08 Blood Pressure 153/94 05/15/18 13:08 O2 Sat by Pulse Oximetry 96 05/15/18 13:08 Temperature 98.1 F 05/15/18 13:08 Pulse Rate 112 05/15/18 13:08 Respiratory Rate 22 05/15/18 13:08 Blood Pressure 153/94 05/15/18 13:08 O2 Sat by Pulse Oximetry 96 05/15/18 13:08 Oxygen Delivery Oxygen Delivery Room Air Medical Decision Making - Lab Data Result diagrams: 05/15/18 14:04 05/15/18 14:04 Lab Results 05/15/18 05/15/18 05/15/18 Range/Units 14:04 14:04 14:04 WBC 7.7 (4.3-11.1) K/mcL RBC 4.99 (4.19-5.50) M/mcL Hgb 15.0 (12.9-16.9) g/dL Hct 43.6 (37.5-50.1) % MCV 87.4 (83.0-100.0) fL MCH 30.1 (28.0-33.3) pg MCHC 34.4 (31.6-35.5) g/dL RDW 13.8 (11.5-14.5) % Plt Count 205 (140-400) K/mcL MPV 10.0 (9.4-12.4) fL Immature Gran % 0.3 (0-4) % Seg Neutrophils % 69.4 % Lymphocytes % 19.4 % Monocytes % 8.1 % Eosinophils % 2.1 % Basophils % 0.7 % Neutrophils # 5.3 (1.6-8.9) K/mcL Lymphocytes # 1.5 (0.6-4.6) K/mcL Monocytes # 0.6 (0.0-1.3) K/mcL Eosinophils # 0.2 (0.0-0.6) K/mcL Basophils # 0.1 (0.0-0.2) K/mcL PT 12.8 H (9.4-12.1) Seconds INR 1.1 Sodium 138 (136-145) mEq/L Potassium 2.9 L (3.5-5.1) mEq/L Chloride 102 (98-107) mEq/L Carbon Dioxide 27 (23-29) mEq/L BUN 10 (6-20) mg/dL Creatinine 0.90 (0.70-1.30) mg/dL Est GFR ( Amer) > 60 (> 60) Est GFR (Non-Af Amer) > 60 (> 60) BUN/Creatinine Ratio 11 (6-26) Glucose 109 H (70-105) mg/dL Calculated Osmolality 286 (280-300) Calcium 9.7 (8.6-10.3) mg/dL Phosphorus 2.0 L (2.7-4.5) mg/dL Magnesium 1.5 L (1.6-2.6) mg/dL Total Bilirubin 0.6 (0.3-1.0) mg/dL AST 73 H (13-39) Units/L ALT 86 H (7-52) Units/L Alkaline Phosphatase 77 (34-104) Units/L Troponin I < 0.03 (< 0.04) ng/mL Serum Total Protein 7.9 (6.4-8.9) g/dL Albumin 4.2 (3.5-5.7) g/dL Globulin 3.7 H (2.4-3.5) g/dL Albumin/Globulin Ratio 1.1 (1.1-2.2) Lipase 16 (11-82) Units/L TSH 0.653 (0.340-5.600) mcIU/mL Attestation Statement - Attestation Attestation: I examined this patient and my medical decision-making was reviewed with the Resident Physician. I agree with the documented findings, disposition and treatment plan as described except to the extent set forth below. 47 year old male presents to the ED with complaints of etoh withdrawl and is well known to this department of his chronic alcholism and states that he hasnt had to drink 2 days ago. Patient state that he has had seizres in the past and currenlty has a baseline tremor. We will start ETOH withdrawl treatment with ativan therapy and MVI replacement and HCT and admit to medicine.
[2018-05-15] MEDS: *HR* LORazepam 2 MG/ML VIAL IVP PRN ×2 (15:45→20:51)
[2018-05-15 15:57] LABS: Ethanol < 10 mg/dL (Less than 10)
[2018-05-15 15:58] LABS: Bilirubin,Urine Negative (Negative); Blood,Urine Negative (Negative); Clarity,Urine Clear (Clear); Color,Urine Dark Yellow (Yellow); Glucose,Urine (UA) Normal (Normal); Ketones,Urine Negative (Negative); Leukocyte Esterase,Urine Negative (Negative); Nitrite,Urine Negative (Negative); PH,Urine 6.5 pH Units (5.0-8.0); Protein,Urine 30 mg/dL (Neg-Trace); Specific Gravity,Urine 1.014 (1.010-1.025); Urobilinogen,Urine Normal (Normal)
[2018-05-15 16:01] LABS: Bacteria,Urine None Seen per hpf (None-Few); Hyaline Casts,Urine Few per lpf (None-Few); RBC,Urine 0-3 per hpf (0-3); Squamous Epithelial Cell,Urine Many per lpf (None-Few)
[2018-05-15 16:29] LABS: Amphetamine Screen,Urine Positive ng/mL (Cutoff=1000); Barbiturate Screen,Urine Negative ng/mL (Cutoff=200); Benzodiazepines Screen,Urine Positive ng/mL (Cutoff=200); Cannabinoid Screen,Urine Positive ng/mL (Cutoff = 50); Cocaine Screen,Urine Negative ng/mL (Cutoff= 300); Opiate Screen,Urine Positive ng/mL (Cutoff=300); Phencyclidine Screen,Urine Negative ng/mL (Cutoff=25)
[2018-05-15] MEDS ORDERED: Naloxone 0.4 MG/ML INJ IVP PRN (16:43)
--- NOTE | 2018-05-15 16:49 | Internal Med History&Physical ---
Date of Encounter: 05/15/18 Time of Encounter: 16:44 Internal Medicine - H&P: HPI Chief complaint: I'm shaking from not drinking alcohol Admitted From: Home Plans for Post Hospital Care: Home History of present illness: Mr. Adams is a 47 year old male with PMH of CHFpEF, DM, Polysubsatnce abuse- Meth, Opiates, cocaine, THC, Benzodiazepine, Alcohol abuse, Morbid Obesity Known patient to this facility, wit multiple admissions from alcohol withdrawal he is here this time because he spoke with his son who agreed to house him if he stops drinking. He last drank yesterday and last sniffed and shot heroin yesterday through a vein on his Left upper arm. He beleives he started having the shakes because he hasnt drank today He is also known to be drug seeking He denies changes in urinary or bowel habits, he denies nausea, vomiting or diarrhea, he denies abdominal pain. he has no fever or chills He denies chest pain, he denies shortness of breath, he denies diaphoresis or dizziness. He has no neurologic symptoms at this time. He has no known history of seizures. On evaluation in the emergency room upon arrival, he was tachycardic and hypotensive, with associated tachypnea. Workup was showed hypomagnesemia hypokalemia and hypophosphatemia. Toxicology was positive for opiates, amphetamines, benzodiazepines and marijuana. Urine analysis was unremarkable. Lipase and TSH were within normal limit. Liver function tests was unremarkable. Head CT and chest x-ray did not show any acute intracranial findings or any acute cardiopulmonary processes. The patient will be admitted for alcohol withdrawal, it is expected that he will stay greater than 2 midnights, he is requiring multiple intravenous medications including benzodiazepines. Past Med Surg Social Fam HX - Past Medical History Medical history: diabetes, hypertension Additional medical history: Cellulitis Psychiatric history: depression - Past Surgical History Surgical History: no surgical history Additional surgical history: n/a - Social History Smoking Status: Current every day smoker Smokeless Tobacco Status: No Alcohol use: heavy, recent Drug use: opiates, marijuana, IV Drug Use, prescription drug abuse - Family History Father Living Status: Hx Family Cardiac Disorders: Yes (ID in 50s) Mother Living Status: Hx Family Cardiac Disorders: Yes (ID in 50s) Internal Medicine - H&P: Meds No Known Home Drugs 04/27/18 [History] 3 Allergy/AdvReac Type Severity Reaction Status Date / Time Amoxicillin Allergy Hives Verified 05/15/18 13:10 Penicillins Allergy Hives Verified 05/15/18 13:10 quetiapine [From Seroquel] Allergy Hives Verified 05/15/18 13:10 chlordiazepoxide AdvReac Gastrointestinal Verified 05/15/18 13:10 [From Librium] Upset All Systems PM: A 10-system review of systems was performed and is negative for pertinent findings except as documented above in the HPI. - Constitutional Constitutional: as per HPI - EENT Eyes: as per HPI Ears: as per HPI Nose, mouth and throat: as per HPI - Cardiovascular Cardiovascular ROS IM: as per HPI - Respiratory Respiratory: as per HPI - Gastrointestinal Gastrointestinal: as per HPI - Musculoskeletal Musculoskeletal ROS IM: as per HPI - Integumentary Integumentary IM: as per HPI - Neurological Neurological ROS: as per HPI - Hematologic/Lymphatic Hematologic/Lymphatic: as per HPI - Constitutional Vitals: Temp Pulse Resp BP Pulse Ox 98.1 F 112 20 162/84 96 05/15/18 16:35 05/15/18 16:35 05/15/18 16:39 05/15/18 16:39 05/15/18 16:35 General appearance: Present: cooperative, disheveled, A&O X 3, pleasant, no acute distress Exam: see detailed exam - Head Head exam: Present: atraumatic, normocephalic - Eye Eye exam: Present: PERRL, conjuntiva pink, sclera anicteric Pupils: Present: PERRL - Neck Neck exam general surgery: Present: supple, trachea midline. Absent: lymphadenopathy - Respiratory Respiratory exam: Present: CTAB. Absent: accessory muscle use, rales, rhonchi, wheezes - Cardiovascular Cardiovascular exam: Present: RRR, +S1, +S2. Absent: diastolic murmur, gallop, rubs, systolic murmur - GI/Abdominal GI/Abdominal exam: Present: normal bowel sounds, soft, no peritoneal signs. Absent: distended, tenderness - Extremities Exam Extremities exam: Present: warm, radial pulses palpable and symmetrical. Absent : calf tenderness, cyanotic, pedal edema Additional comments: track chandler no cellulitis chronic venous stasis changes - Neurological Exam Neurological exam: Present: alert, CN II-XII intact, oriented X3, no focal deficits. Absent: pronater drift, facial droop, speech deficit - Skin Skin exam: Present: dry, intact Additional comments: track chandler, chronic venous stasis changes Internal Med - H&P Results - Labs CBC & Chem 7: 05/15/18 14:04 05/15/18 14:04 - Assessment and plan (1) Alcohol dependence with withdrawal Current Visit: Yes Status: Acute Assessment and plan: Continue alcohol withdrawal protocol Continue thiamine, multivitamin and folic acid Consult child welfare social worker for possible rehabilitation Qualifiers: Complication of substance-induced condition: uncomplicated Qualified Code(s ): F10.230 - Alcohol dependence with withdrawal, uncomplicated (2) Hypokalemia Current Visit: Yes Status: Acute Assessment and plan: Replaced. By the ER, continue to monitor. (3) DVT prophylaxis Current Visit: Yes Status: Acute Assessment and plan: Subcutaneous heparin. (4) Opiate abuse, continuous Current Visit: Yes Status: Chronic Assessment and plan: Chronic opiate abuse including intravenous and inhalational heroine use. Monitor for withdrawal (5) DM2 (diabetes mellitus, type 2) Current Visit: Yes Status: Chronic Assessment and plan: A1C 6.8 03/2018 Sliding scale insulin Qualifiers: Diabetes mellitus assisted insulin use: without terminal carman use Diabetes mellitus complication status: without complication Qualified Code(s): E11.9 - Type 2 diabetes mellitus without complications (6) Diastolic CHF, chronic Current Visit: Yes Status: Chronic Assessment and plan: euvolemic sat this time (7) Essential hypertension Current Visit: Yes Status: Chronic Assessment and plan: not on any medications due to non-compliance Start on amlodipine 10mg po daily Continue to monitor (8) Polysubstance abuse Current Visit: Yes Status: Chronic Assessment and plan: alcohol, opiate, benzo and THC Monitor for withdrawals (9) Tobacco abuse Current Visit: Yes Status: Chronic Assessment and plan: encourage cessation (10) Hypomagnesemia Current Visit: Yes Status: Acute Assessment and plan: replaced, monitor with a.m labs (11) Hypophosphatemia Current Visit: Yes Status: Acute Assessment and plan: replaced, monitor with a.m labs - Time Spent With Patient Total time spent is greater than 50% in coordination of care (as documented) at patient's floor/unit and/or counseling patient:
[2018-05-15] MEDS ORDERED: *HR* Dextrose 50 % in Water (Syg) 50 ML SYRINGE IVP PRN (16:52)
[2018-05-15] MEDS ORDERED: Dextrose Gel 15 GM/37.5 ML TUBE PO PRN ×2 (16:52)
[2018-05-15] MEDS ORDERED: D5% in Water 1,000 ML IVC PRN (16:52)
--- NOTE | 2018-05-15 18:39 | Electrocardiograph Report ---
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
[2018-05-15] MEDS: amLODIPine 5 MG TABLET PO SCH (20:40)
[2018-05-15] MEDS: Insulin LISPRO 300 UNITS/3 ML VIAL SQ SCH (20:55)
[2018-05-16] MEDS: *HR* LORazepam 2 MG/ML VIAL IVP PRN ×8 (03:49→23:44)
[2018-05-16 04:32] LABS: Basophils # 0.1 K/mcL (0.0-0.2); Basophils % 0.8 %; Eosinophils # 0.3 K/mcL (0.0-0.6); Eosinophils % 3.6 %; Hematocrit 40.6 % (37.5-50.1); Hemoglobin 13.5 g/dL (12.9-16.9); Immature Granulocytes % 0.3 % (0-4); Lymphocytes # 2.3 K/mcL (0.6-4.6); Mean Corpuscular HGB Conc 33.3 g/dL (31.6-35.5); Mean Corpuscular Hemoglobin 29.2 pg (28.0-33.3); Mean Corpuscular Volume 87.9 fL (83.0-100.0); Mean Platelet Volume 10.3 fL (9.4-12.4); Monocytes # 0.7 K/mcL (0.0-1.3); Monocytes % 8.8 %; Neutrophils # 4.3 K/mcL (1.6-8.9); Platelet Count 202 K/mcL (140-400); Red Blood Count 4.62 M/mcL (4.19-5.50); Red Cell Distribution Width 13.9 % (11.5-14.5); Segmented Neutrophils % 56.5 %
[2018-05-16 04:46] LABS: Magnesium 1.7 mg/dL (1.6-2.6); Phosphorous 3.1 mg/dL (2.7-4.5)
[2018-05-16 04:49] LABS: BUN/Creatinine Ratio 15 (6-26); Blood Urea Nitrogen 12 mg/dL (6-20); Calcium 9.1 mg/dL (8.6-10.3); Carbon Dioxide 27 mEq/L (23-29); Chloride 105 mEq/L (98-107); Chol/HDL Ratio 6.1 (0-4.9); Cholesterol 176 mg/dL (< 200); Glucose 146 mg/dL (70-105); HDL Cholesterol 29 mg/dL (40-59); LDL Cholesterol,Calculated 122 mg/dL (0-99); Osmolality,Calculated 292 (280-300); Potassium 3.3 mEq/L (3.5-5.1); Sodium 140 mEq/L (136-145); Triglycerides 126 mg/dL (< 150); eGFR For Non-African Americans > 60 (> 60)
[2018-05-16] MEDS ORDERED: *HR* Enoxaparin 40 MG/0.4 ML SYRINGE SQ SCH (06:00)
[2018-05-16] MEDS ORDERED: Potassium Chloride Elixir 20 MEQ/15 ML UDC PO ONE (08:12)
[2018-05-16] MEDS: Thiamine (B-1) 100 MG TABLET PO SCH (10:07)
[2018-05-16] MEDS: Multivit/Ca/Min/Fe/FA 1 TAB TABLET PO SCH (10:07)
[2018-05-16] MEDS: amLODIPine 5 MG TABLET PO SCH (10:07)
[2018-05-16] MEDS: Folic Acid 1 MG TABLET PO SCH (10:07)
[2018-05-16] MEDS: Insulin LISPRO 300 UNITS/3 ML VIAL SQ SCH ×4 (10:20→20:37)
--- NOTE | 2018-05-16 13:55 | Internal Med Progress Note ---
Hospitalist Progress Note - Encounter Date of Encounter: 05/16/18 Time of Encounter: 13:53 - Subjective Interval History: Patient seen and evaluated at bedside, denies chest pain, shortness of breath, with visual or auditory hallucination. Patient makes purposely lower extremity movement and states that he is going into DTs. No tachycardiac, no upper extremity tremors, no diaphoresis. - Exam Vitals: Temp Pulse Resp BP Pulse Ox 98.9 F 85 16 157/103 95 05/16/18 11:40 05/16/18 11:40 05/16/18 11:40 05/16/18 11:40 05/16/18 11:40 Exam: General: Alert and oriented 3. In no acute distress. Skin:Normal color, no rash, no lesions. Cardiovascular: Normal S1 & S2, no rubs, murmurs or gallops. Pulse regular. Lungs: Clear to auscultation bilaterally, no wheezes or crackles. Abdomen: Obese, Soft, non-tender, no rigidity. Extremities: No deformity, no edema or tenderness, no joint swelling or clubbing. Neurological: Normal cognition and motor skills. CN II-XII. Rest of the physical exam is non contributory - Assessment and Plan (1) Polysubstance abuse Current Visit: Yes Status: Chronic Assessment and Plan: Plan: - Patient has a history of polysubstance abuse, he expresses desire to go to an inpatient facility for rehabilitation. - creative services designer has been consulted for possible arrangement. - Discharge planning pending this evaluation. (2) DM2 (diabetes mellitus, type 2) Current Visit: Yes Status: Chronic Assessment and Plan: Blood sugar well controlled. Continue lispro before meals and sliding scale. will add Levemir 5 units chest. (3) Essential hypertension Current Visit: Yes Status: Chronic Assessment and Plan: Blood pressure suboptimally controlled. Continue amlodipine 10 mg by mouth daily. We will add metoprolol 25 mg daily. Hydralazine 10 mg IV every 6 hours when necessary for systolic blood pressure more than 190. (4) Hypokalemia Current Visit: Yes Status: Acute Assessment and Plan: Plan: - Electrolytes replacement. (5) Hypokalemia Current Visit: Yes Status: Acute (6) Alcohol abuse Current Visit: Yes Status: Acute Assessment and Plan: Patient with no physical findings of DTs. CIWA score 0. Plan: - Continue lorazepam 2 mg IV every 4 hours when necessary for DT-like symptoms. (7) DVT prophylaxis Current Visit: Yes Status: Acute Assessment and Plan: On Lovenox 40 units twice a day due to BMI >40. For DVT prophylaxis. - Summary of Assessment and Plan Summary of Assessment and Plan: Discharge pending older adult social work specialist evaluation for possible placement in an inpatient rehabilitation facility. - Time Spent with Patient Total time spent is greater than 50% in coordination of care (as documented) at patient's floor/unit and/or counseling patient: 25 - 35 minutes Plan of Care Discussed with: nurse (AND THE NURSE.) Internal Medicine: Result - Labs CBC & Chem 7: 05/16/18 03:57 05/16/18 03:57 Labs: Short CBC 05/16/18 Range/Units 03:57 WBC 7.6 (4.3-11.1) K/mcL Hgb 13.5 D (12.9-16.9) g/dL Hct 40.6 (37.5-50.1) % Plt Count 202 (140-400) K/mcL Neutrophils # 4.3 (1.6-8.9) K/mcL BMP 05/16/18 03:57 Sodium 140 Potassium 3.3 L Chloride 105 Carbon Dioxide 27 BUN 12 Creatinine 0.80 Glucose 146 H Calcium 9.1 - ABG Interpretation ABG results: PT/INR, D-dimer PT 12.8 Seconds (9.4-12.1) H 05/15/18 14:04 Consult Discharge Plan - Plan Referrals: NONE,PCP [Primary Care Provider] - (2) DM2 (diabetes mellitus, type 2) Qualifiers: Diabetes mellitus alf insulin use: without intermodal customer service use Diabetes mellitus complication status: without complication Qualified Code(s): E11.9 - Type 2 diabetes mellitus without complications
[2018-05-16] MEDS: Nicotine 21 MG PATCH.TD24 TD SCH (18:20)
[2018-05-16] MEDS: *HR* Enoxaparin 40 MG/0.4 ML SYRINGE SQ SCH (18:22)
[2018-05-16] MEDS: Insulin DETEMIR 100 UNIT/ML X5UNITS SQ SCH (20:29)
[2018-05-16] MEDS ORDERED: *HR* LORazepam 2 MG/ML VIAL IVP ONE (22:19)
--- NOTE | 2018-05-16 22:30 | Event Note ---
Date of Encounter: 05/16/18 Time of Encounter: 22:28 Called to see patient for worsening EtOH withdrawal and high CIWA scores despite Ativan administration. I saw, interviewed, and examined patient. Patient reports 12-14 beers/day, 1 pint liquor every other day, heroin daily, and crystal meth every other day use. He is in severe withdrawal. I am moving him to ICU. I will start him on Precedex drip as discussed with pharmacy. If he fails this, he may need Versed drip or other meds to help control withdrawal symptoms.
[2018-05-16] MEDS: Dexmedetomidine HCl 400 MCG/100 ML MLS IVC SCH (22:52)
[2018-05-17] MEDS: Dexmedetomidine HCl 400 MCG/100 ML MLS IVC SCH ×5 (00:49→12:26)
[2018-05-17] MEDS: *HR* Enoxaparin 40 MG/0.4 ML SYRINGE SQ SCH ×2 (05:48→17:09)
[2018-05-17] MEDS: Insulin LISPRO 300 UNITS/3 ML VIAL SQ SCH ×4 (07:45→21:06)
[2018-05-17] MEDS: Nicotine 21 MG PATCH.TD24 TD SCH (08:42)
[2018-05-17] MEDS: Multivit/Ca/Min/Fe/FA 1 TAB TABLET PO SCH (08:42)
[2018-05-17] MEDS: Thiamine (B-1) 100 MG TABLET PO SCH (08:42)
[2018-05-17] MEDS: amLODIPine 5 MG TABLET PO SCH (08:42)
[2018-05-17] MEDS: Folic Acid 1 MG TABLET PO SCH (08:42)
--- NOTE | 2018-05-17 12:57 | Internal Med Progress Note ---
Hospitalist Progress Note - Encounter Date of Encounter: 05/17/18 Time of Encounter: 12:55 - Subjective Interval History: Evaluated at bed side, patient mildly lethargic on a precedex drip. Patient transferred overnight to ICU due to agitation and a CIWA >20, yoni high risk for intubation. - Exam Vitals: Temp Pulse Resp BP Pulse Ox 97.7 F 61 26 136/79 96 05/17/18 12:00 05/17/18 12:00 05/17/18 12:00 05/17/18 12:00 05/17/18 12:00 Exam: General: Alert, mildly letharic on a precedx drip. Cardiovascular: Normal S1 & S2, no rubs, murmurs or gallops. Pulse regular. Lungs: Clear to auscultation bilaterally, no wheezes or crackles. Abdomen: Obese, Soft, non-tender, no rigidity. Extremities: No deformity, no edema or tenderness, no joint swelling or clubbing. Neurological: CN II-XII. Rest of the physical exam is non contributory - Assessment and Plan (1) Alcohol withdrawal Current Visit: No Status: Acute Assessment and Plan: Patient transferred to ICU due to DT like symptoms. Current CIWA score 5. Plan: - On a precedx drip. To start tapering off the drip. - Started on Oxazepam 15mg PO TID - Continue metoprolol 25mg PO BID - Lorazepam 2mg/IV Q4hr PRN for agitation - Diphenhydramine 25mg IV Q6HR PRN for agitation - Possible step down if patient remain clinically stable off the precedex drip (2) Polysubstance abuse Current Visit: Yes Status: Chronic Assessment and Plan: Plan: - Patient requested to go to inpatient rehabilitation facility, but as per the social and human services assistant patient has used all his mental health days. (3) DM2 (diabetes mellitus, type 2) Current Visit: Yes Status: Chronic Assessment and Plan: Blood sugar well controlled Plan - to continue levemir 5 units HS and sliding scale (4) Essential hypertension Current Visit: Yes Status: Chronic Assessment and Plan: BP well controlled on metoprolol and amlodipine. To continue same medications. (5) Hypokalemia Current Visit: Yes Status: Acute Assessment and Plan: Electrolyte has been replaced. F/U am bmp. (6) DVT prophylaxis Current Visit: Yes Status: Acute DVT Prophylaxis: On heparin 5000 units Q12HR SubQ for DVT prophylaxis - Summary of Assessment and Plan Summary of Assessment and Plan: Patient on a precedex drip. Needs to continue hospitalized for alcohol withdrawal management. - Time Spent with Patient Total time spent is greater than 50% in coordination of care (as documented) at patient's floor/unit and/or counseling patient: Greater than 35 minutes Plan of Care Discussed with: patient Internal Medicine: Result - Labs CBC & Chem 7: 05/16/18 03:57 05/16/18 03:57 - ABG Interpretation ABG results: PT/INR, D-dimer PT 12.8 Seconds (9.4-12.1) H 05/15/18 14:04 Consult Discharge Plan - Plan Referrals: NONE,PCP [Primary Care Provider] - (1) Alcohol withdrawal Qualifiers: Complication of substance-induced condition: with unspecified complication Qualified Code(s): F10.239 - Alcohol dependence with withdrawal, unspecified (3) DM2 (diabetes mellitus, type 2) Qualifiers: Diabetes mellitus senior care insulin use: without senior care use Diabetes mellitus complication status: without complication Qualified Code(s): E11.9 - Type 2 diabetes mellitus without complications
[2018-05-17] MEDS: *HR* LORazepam 2 MG/ML VIAL IVP PRN ×2 (17:06→21:04)
[2018-05-17] MEDS: Insulin DETEMIR 100 UNIT/ML X5UNITS SQ SCH (21:05)
[2018-05-18] MEDS: *HR* LORazepam 2 MG/ML VIAL IVP PRN ×7 (01:27→21:48)
[2018-05-18] MEDS: *HR* Enoxaparin 40 MG/0.4 ML SYRINGE SQ SCH ×2 (05:29→17:38)
[2018-05-18] MEDS: Insulin LISPRO 300 UNITS/3 ML VIAL SQ SCH ×4 (08:37→21:14)
[2018-05-18] MEDS: Folic Acid 1 MG TABLET PO SCH (08:41)
[2018-05-18] MEDS: Thiamine (B-1) 100 MG TABLET PO SCH (08:41)
[2018-05-18] MEDS: amLODIPine 5 MG TABLET PO SCH (08:41)
[2018-05-18] MEDS: Multivit/Ca/Min/Fe/FA 1 TAB TABLET PO SCH (08:42)
[2018-05-18] MEDS: Nicotine 21 MG PATCH.TD24 TD SCH (09:38)
--- NOTE | 2018-05-18 13:58 | Internal Med Progress Note ---
Hospitalist Progress Note - Encounter Date of Encounter: 05/18/18 Time of Encounter: 13:56 - Subjective Interval History: Evaluated at bedside, patient has mild resting and intentional tremors, diaphoretic. Denies chest pain, nausea or vomiting. Denies auditory or visual hallucination. - Exam Vitals: Temp Pulse Resp BP Pulse Ox 98.3 F 80 16 183/105 94 05/18/18 11:33 05/18/18 12:00 05/18/18 12:00 05/18/18 11:33 05/18/18 11:33 Exam: General: Alert, oriented x4. Mild intentional and resting tremors. Cardiovascular: Normal S1 & S2, no rubs, murmurs or gallops. Pulse regular. Lungs: Clear to auscultation bilaterally, no wheezes or crackles. Abdomen: Obese, Soft, non-tender, no rigidity. Extremities: No deformity, no edema or tenderness, no joint swelling or clubbing. Neurological: CN II-XII. Rest of the physical exam is non contributory - Assessment and Plan (1) Alcohol withdrawal Current Visit: No Status: Acute Assessment and Plan: Hypertensive, with intentional and resting tremors. Diaphoretic. CIWA score of 5. Plan: Off the precedex drip continue telemetry monitoring continue Oxazepam 15mg/PO TID on Diphehydramine 25mg/IV Q6HR PRN for agitation Lorazepam 2mg/IV Q4HR PRN for agitation Increase Metoprolol to 50mg PO daily Hydralazine 50gm PO Q8HR has been added Continue amlodine and lisinopril Hydralazine 10mg/IV Q6HR PRN for SBP >190 (2) Essential hypertension Current Visit: Yes Status: Chronic Assessment and Plan: BP suboptimally controlled possible secondary to Alcohol withdrawal. Plan: Antihypertensive medications have been adjusted as per problem #1. (3) DM2 (diabetes mellitus, type 2) Current Visit: Yes Status: Chronic Assessment and Plan: Plan: Blood glucose well controlled on Levemir 5untis HS and Lisrpo AC and sliding scale Diabetic diet (4) Polysubstance abuse Current Visit: Yes Status: Chronic Assessment and Plan: Plan: - Patient requested to go to inpatient rehabilitation facility, but as per the social media developer patient has used all his mental health days. (5) DVT prophylaxis Current Visit: Yes Status: Acute Assessment and Plan: On lovenox 40mg subQ BID BMI >40 (6) Morbid obesity Current Visit: Yes Status: Chronic - Summary of Assessment and Plan Summary of Assessment and Plan: Patient to remain hospitalized as patient is still undergoing alcohol withdrawal. Needs to be on a telemetry unit. - Time Spent with Patient Total time spent is greater than 50% in coordination of care (as documented) at patient's floor/unit and/or counseling patient: Greater than 35 minutes Plan of Care Discussed with: patient (and the nurse.) Internal Medicine: Result - Labs CBC & Chem 7: 05/16/18 03:57 05/16/18 03:57 - ABG Interpretation ABG results: PT/INR, D-dimer PT 12.8 Seconds (9.4-12.1) H 05/15/18 14:04 Consult Discharge Plan - Plan Referrals: Tucker Ellis [Resident] - 05/26/18 2:00 pm (YOU WILL BE RECEIVING A NEW PATIENT PACKET IN THE MAIL PLEASE FILL IT OUT AND TAKE IT WITH YOU TO YOUR APPOINTMENT. ALSO TAKE TO YOUR APPOINTMENT INSURANCE CARD, PICTURE ID, A LIST OF ALL MEDICATIONS INCULDING OVER THE COUNTER. THIS OFFICE DOES NOT PRESCRIBE CONTROLLED MEDICATIONS. SHOW UP 15 MINUTES EARLY. IF YOU NEED TO CANCEL PLEASE CALL [phone] 24 HOURS PRIOR TO YOUR APPOINTMENT. THE OFFICE ADVISED IF YOU DO NOT SHOW UP FOR THIS APPOINTMENT THEY WILL NOT BE ABLE TO FIND YOU ANOTHER DOCTOR.) (1) Alcohol withdrawal Qualifiers: Complication of substance-induced condition: with unspecified complication Qualified Code(s): F10.239 - Alcohol dependence with withdrawal, unspecified (3) DM2 (diabetes mellitus, type 2) Qualifiers: Diabetes mellitus termite control servicer insulin use: without mcfp use Diabetes mellitus complication status: without complication Qualified Code(s): E11.9 - Type 2 diabetes mellitus without complications
[2018-05-18] MEDS: hydrALAZINE 25 MG TABLET PO SCH (14:38)
[2018-05-18] MEDS: Insulin DETEMIR 100 UNIT/ML X5UNITS SQ SCH (21:47)
[2018-05-19] MEDS: hydrALAZINE 25 MG TABLET PO SCH ×4 (00:07→23:25)
[2018-05-19] MEDS: *HR* Enoxaparin 40 MG/0.4 ML SYRINGE SQ SCH ×2 (06:01→17:30)
[2018-05-19] MEDS: Dexmedetomidine HCl 400 MCG/100 ML MLS IVC SCH (06:06)
[2018-05-19 07:39] LABS: Basophils # 0.1 K/mcL (0.0-0.2); Basophils % 0.7 %; Eosinophils # 0.2 K/mcL (0.0-0.6); Eosinophils % 2.5 %; Hematocrit 42.2 % (37.5-50.1); Hemoglobin 14.4 g/dL (12.9-16.9); Immature Granulocytes % 0.3 % (0-4); Lymphocytes # 2.5 K/mcL (0.6-4.6); Lymphocytes % 27.8 %; Mean Corpuscular HGB Conc 34.1 g/dL (31.6-35.5); Mean Corpuscular Hemoglobin 29.9 pg (28.0-33.3); Mean Corpuscular Volume 87.7 fL (83.0-100.0); Mean Platelet Volume 10.2 fL (9.4-12.4); Monocytes # 0.7 K/mcL (0.0-1.3); Monocytes % 7.5 %; Neutrophils # 5.5 K/mcL (1.6-8.9); Platelet Count 214 K/mcL (140-400); Red Blood Count 4.81 M/mcL (4.19-5.50); Red Cell Distribution Width 13.8 % (11.5-14.5); Segmented Neutrophils % 61.2 %
[2018-05-19 07:49] LABS: BUN/Creatinine Ratio 17 (6-26); Blood Urea Nitrogen 13 mg/dL (6-20); Calcium 9.2 mg/dL (8.6-10.3); Carbon Dioxide 24 mEq/L (23-29); Chloride 104 mEq/L (98-107); Glucose 147 mg/dL (70-105); Magnesium 1.7 mg/dL (1.6-2.6); Osmolality,Calculated 287 (280-300); Potassium 3.6 mEq/L (3.5-5.1); Sodium 137 mEq/L (136-145); eGFR For Non-African Americans > 60 (> 60)
[2018-05-19] MEDS: Insulin LISPRO 300 UNITS/3 ML VIAL SQ SCH ×4 (08:23→20:35)
[2018-05-19] MEDS: amLODIPine 5 MG TABLET PO SCH (08:43)
[2018-05-19] MEDS: Folic Acid 1 MG TABLET PO SCH (08:43)
[2018-05-19] MEDS: Nicotine 21 MG PATCH.TD24 TD SCH (08:43)
[2018-05-19] MEDS: Multivit/Ca/Min/Fe/FA 1 TAB TABLET PO SCH (08:43)
[2018-05-19] MEDS: Thiamine (B-1) 100 MG TABLET PO SCH (08:43)
[2018-05-19] MEDS: *HR* LORazepam 2 MG/ML VIAL IVP PRN ×2 (17:40→23:25)
--- NOTE | 2018-05-19 19:19 | Internal Med Progress Note ---
Hospitalist Progress Note - Encounter Date of Encounter: 05/19/18 Time of Encounter: 11:00 - Subjective Interval History: Patient had to be placed on Precedex drip overnight due to worsening alcohol withdrawal symptoms. - Exam Vitals: Temp Pulse Resp BP Pulse Ox 98.4 F 100 20 162/90 97 05/19/18 16:34 05/19/18 18:12 05/19/18 18:12 05/19/18 16:34 05/19/18 16:34 Exam: Gen.: Nonacute distress, alert and oriented 3 ENT: Mucosal membranes moist Respiratory: Lungs are clear to auscultation bilaterally without any wheezing rhonchi or rales Cardiovascular: Normal S1 and S2 regular rate rhythm no murmurs rubs or gallops Abdomen: Soft, nontender and nondistended with positive bowel sounds Extremities: No lower extremity edema Skin: Normal color - Assessment and Plan (1) Alcohol withdrawal Current Visit: No Status: Acute Assessment and Plan: Will wean patient back off Precedex drip today (2) Polysubstance abuse Current Visit: Yes Status: Chronic Assessment and Plan: Patient requested to go to inpatient rehabilitation facility, but as per the social service assistant patient has used all his mental health days. (3) DM2 (diabetes mellitus, type 2) Current Visit: Yes Status: Chronic Assessment and Plan: Blood glucose well controlled on Levemir 5untis HS and Lisrpo AC and sliding scale Diabetic diet (4) Essential hypertension Current Visit: Yes Status: Chronic Assessment and Plan: BP suboptimally controlled possible secondary to Alcohol withdrawal. Antihypertensive medications have been adjusted (5) Morbid obesity Current Visit: Yes Status: Chronic Assessment and Plan: Lifestyle modifications (6) DVT prophylaxis Current Visit: Yes Status: Acute Assessment and Plan: On lovenox 40mg subQ BID BMI >40 - Time Spent with Patient Total time spent is greater than 50% in coordination of care (as documented) at patient's floor/unit and/or counseling patient: Internal Medicine: Result - Labs CBC & Chem 7: 05/19/18 06:59 05/19/18 06:59 Labs: Short CBC 05/19/18 Range/Units 06:59 WBC 9.0 (4.3-11.1) K/mcL Hgb 14.4 (12.9-16.9) g/dL Hct 42.2 (37.5-50.1) % Plt Count 214 (140-400) K/mcL Neutrophils # 5.5 (1.6-8.9) K/mcL BMP 05/19/18 06:59 Sodium 137 Potassium 3.6 Chloride 104 Carbon Dioxide 24 BUN 13 Creatinine 0.75 Glucose 147 H Calcium 9.2 - ABG Interpretation ABG results: PT/INR, D-dimer PT 12.8 Seconds (9.4-12.1) H 05/15/18 14:04 Consult Discharge Plan - Plan Referrals: Tucker Ellis [Resident] - 05/26/18 2:00 pm (YOU WILL BE RECEIVING A NEW PATIENT PACKET IN THE MAIL PLEASE FILL IT OUT AND TAKE IT WITH YOU TO YOUR APPOINTMENT. ALSO TAKE TO YOUR APPOINTMENT INSURANCE CARD, PICTURE ID, A LIST OF ALL MEDICATIONS INCULDING OVER THE COUNTER. THIS OFFICE DOES NOT PRESCRIBE CONTROLLED MEDICATIONS. SHOW UP 15 MINUTES EARLY. IF YOU NEED TO CANCEL PLEASE CALL [phone] 24 HOURS PRIOR TO YOUR APPOINTMENT. THE OFFICE ADVISED IF YOU DO NOT SHOW UP FOR THIS APPOINTMENT THEY WILL NOT BE ABLE TO FIND YOU ANOTHER DOCTOR.) (1) Alcohol withdrawal Qualifiers: Complication of substance-induced condition: with unspecified complication Qualified Code(s): F10.239 - Alcohol dependence with withdrawal, unspecified (3) DM2 (diabetes mellitus, type 2) Qualifiers: Diabetes mellitus chcf insulin use: without exterminator use Diabetes mellitus complication status: without complication Qualified Code(s): E11.9 - Type 2 diabetes mellitus without complications
[2018-05-19] MEDS ORDERED: *HR* LORazepam 2 MG/ML VIAL IVP ONE (20:15)
[2018-05-19] MEDS ORDERED: *HR* LORazepam 2 MG/ML VIAL ONE (20:25)
[2018-05-19] MEDS: Insulin DETEMIR 100 UNIT/ML X5UNITS SQ SCH (20:35)
[2018-05-20] MEDS: *HR* Enoxaparin 40 MG/0.4 ML SYRINGE SQ SCH (06:43)
--- NOTE | 2018-05-20 08:20 | Internal Med Progress Note ---
Hospitalist Progress Note - Encounter Date of Encounter: 05/20/18 - Exam Vitals: Temp Pulse Resp BP Pulse Ox 98.3 F 94 20 171/95 97 05/20/18 07:20 05/20/18 07:20 05/20/18 07:20 05/20/18 07:20 05/20/18 07:20 - Assessment and Plan (1) Alcohol withdrawal Current Visit: No Status: Acute (2) Polysubstance abuse Current Visit: Yes Status: Chronic Assessment and Plan: Patient with history of crystal methenamine and heroin use Patient requested to go to inpatient rehabilitation facility, but as per the social services analyst patient has used all his mental health days. (3) Essential hypertension Current Visit: Yes Status: Chronic Assessment and Plan: BP uncontrolled; suspect secondary to Alcohol withdrawal in addition to polysubstance abuse Will continue to adjust antihypertensive medications as needed (4) DM2 (diabetes mellitus, type 2) Current Visit: Yes Status: Chronic Assessment and Plan: Controlled; continue Levemir 5 untis HS, Lisrpo AC and sliding scale Diabetic diet (5) Morbid obesity Current Visit: Yes Status: Chronic Assessment and Plan: Lifestyle modifications DVT Prophylaxis: Subcutaneous Lovenox - Time Spent with Patient Total time spent is greater than 50% in coordination of care (as documented) at patient's floor/unit and/or counseling patient: Internal Medicine: Result - Labs CBC & Chem 7: 05/19/18 06:59 05/19/18 06:59 - ABG Interpretation ABG results: PT/INR, D-dimer PT 12.8 Seconds (9.4-12.1) H 05/15/18 14:04 Consult Discharge Plan - Plan Referrals: Tucker Ellis [Resident] - 05/26/18 2:00 pm (YOU WILL BE RECEIVING A NEW PATIENT PACKET IN THE MAIL PLEASE FILL IT OUT AND TAKE IT WITH YOU TO YOUR APPOINTMENT. ALSO TAKE TO YOUR APPOINTMENT INSURANCE CARD, PICTURE ID, A LIST OF ALL MEDICATIONS INCULDING OVER THE COUNTER. THIS OFFICE DOES NOT PRESCRIBE CONTROLLED MEDICATIONS. SHOW UP 15 MINUTES EARLY. IF YOU NEED TO CANCEL PLEASE CALL [phone] 24 HOURS PRIOR TO YOUR APPOINTMENT. THE OFFICE ADVISED IF YOU DO NOT SHOW UP FOR THIS APPOINTMENT THEY WILL NOT BE ABLE TO FIND YOU ANOTHER DOCTOR.) (1) Alcohol withdrawal Qualifiers: Complication of substance-induced condition: with unspecified complication Qualified Code(s): F10.239 - Alcohol dependence with withdrawal, unspecified (4) DM2 (diabetes mellitus, type 2) Qualifiers: Diabetes mellitus group home insulin use: without group home use Diabetes mellitus complication status: without complication Qualified Code(s): E11.9 - Type 2 diabetes mellitus without complications
[2018-05-20] MEDS: Thiamine (B-1) 100 MG TABLET PO SCH (08:21)
[2018-05-20] MEDS: Multivit/Ca/Min/Fe/FA 1 TAB TABLET PO SCH (08:22)
[2018-05-20] MEDS: amLODIPine 5 MG TABLET PO SCH (08:22)
[2018-05-20] MEDS: hydrALAZINE 25 MG TABLET PO SCH (08:23)
[2018-05-20] MEDS: Folic Acid 1 MG TABLET PO SCH (08:23)
[2018-05-20] MEDS: Nicotine 21 MG PATCH.TD24 TD SCH (08:24)
[2018-05-20] MEDS: *HR* LORazepam 2 MG/ML VIAL IVP PRN (08:45)
[2018-05-20] MEDS: Insulin LISPRO 300 UNITS/3 ML VIAL SQ SCH ×2 (09:10→11:51)
[2018-05-20 09:17] LABS: Basophils # 0.1 K/mcL (0.0-0.2); Basophils % 0.8 %; Eosinophils # 0.3 K/mcL (0.0-0.6); Hematocrit 44.1 % (37.5-50.1); Hemoglobin 14.8 g/dL (12.9-16.9); Immature Granulocytes % 0.3 % (0-4); Lymphocytes # 1.9 K/mcL (0.6-4.6); Mean Corpuscular HGB Conc 33.6 g/dL (31.6-35.5); Mean Corpuscular Hemoglobin 29.4 pg (28.0-33.3); Mean Corpuscular Volume 87.7 fL (83.0-100.0); Mean Platelet Volume 10.2 fL (9.4-12.4); Monocytes # 0.7 K/mcL (0.0-1.3); Monocytes % 7.8 %; Neutrophils # 6.2 K/mcL (1.6-8.9); Platelet Count 236 K/mcL (140-400); Red Blood Count 5.03 M/mcL (4.19-5.50); Red Cell Distribution Width 13.9 % (11.5-14.5); Segmented Neutrophils % 67.1 %
[2018-05-20 11:51] VITALS: BP 178/95
[2018-05-20 13:56] LABS: BUN/Creatinine Ratio 14 (6-26); Blood Urea Nitrogen 11 mg/dL (6-20); Calcium 9.6 mg/dL (8.6-10.3); Carbon Dioxide 24 mEq/L (23-29); Chloride 103 mEq/L (98-107); Glucose 119 mg/dL (70-105); Osmolality,Calculated 283 (280-300); Potassium 3.8 mEq/L (3.5-5.1); Sodium 136 mEq/L (136-145); eGFR For Non-African Americans > 60 (> 60)
--- NOTE | 2018-05-20 13:56 | Discharge Summary ---
- NOTES TO OUTPATIENT PROVIDER Notes to Outpatient Provider: none Orders not resulted at time of discharge: Pending orders 05/20/18 12:26 Basic Metabolic Panel Routine Date of Encounter: 05/20/18 Time of Encounter: 11:00 - Discharge Diagnosis (1) Alcohol withdrawal Priority: Primary Status: Acute Qualifiers: Complication of substance-induced condition: with unspecified complication Qualified Code(s): F10.239 - Alcohol dependence with withdrawal, unspecified (2) Polysubstance abuse Priority: Primary Status: Chronic (3) Essential hypertension Priority: Primary Status: Chronic (4) DM2 (diabetes mellitus, type 2) Priority: Secondary Status: Chronic Qualifiers: Diabetes mellitus terminal superintendent insulin use: without retirement use Diabetes mellitus complication status: without complication Qualified Code(s): E11.9 - Type 2 diabetes mellitus without complications (5) Morbid obesity Priority: Secondary Status: Chronic Hospital course: Patient is a 47-year-old male with past medical history significant for CHFpEF, DM, Polysubsatnce abuse-Meth, Opiates, cocaine, THC, Benzodiazepine, Alcohol abuse, Morbid Obesity in addition to being known to this facility due to multiple admissions from alcohol withdrawal presents for the same. During patients hospital stay his withdrawal symptoms improved with treatment of IV medications. Patient requested for inpatient treatment however inpatient facility did not have any beds available for approximately one week. Patient also homeless and without any income to afford prescriptions. horticultural manager was consulted and information given to patient. Patient requested to be discharged and will follow-up with inpatient treatment facility for alcohol rehabilitation. - Time Spent with Patient Total time spent providing and/or coordinating discharge services: Less than 30 minutes - Discharge Medications Home Medications: Atenolol [Tenormin] 25 mg PO DAILY 05/18/18 [History] Buprenorphine HCl/Naloxone HCl [Suboxone 2 mg-0.5 mg Sl Film] 1 each SL BID 06/25 [History] Gabapentin [Neurontin] 100 mg PO TID 05/18/18 [History] Lisinopril [Zestril] 5 mg PO DAILY 05/18/18 [History] Metformin HCl [Glucophage] 1,000 mg PO BIDWM 05/18/18 [History] Mirtazapine 7.5 mg PO HS 05/18/18 [History] amLODIPine [Norvasc] 10 mg PO DAILY 05/18/18 [History] hydrOXYzine pamoate [Hydroxyzine Pamoate] 25 mg PO TID PRN 05/18/18 [History] Allergies/Adverse Reactions: 3 Allergy/AdvReac Type Severity Reaction Status Date / Time Amoxicillin Allergy Hives Verified 05/15/18 13:10 Penicillins Allergy Hives Verified 05/15/18 13:10 quetiapine [From Seroquel] Allergy Hives Verified 05/15/18 13:10 chlordiazepoxide AdvReac Gastrointestinal Verified 05/15/18 13:10 [From Librium] Upset Date of admission: 05/15/18 16:49 Primary care physician: PCP NONE Consults: 05/15/18 18:16 Consult to [facility] [CONS] Routine Reason for SW Consult: Polysubstance abuse and alcohol abuse and withdrawal. - Constitutional Vitals: Temp Pulse Resp BP Pulse Ox 98.1 F 79 17 178/95 95 05/20/18 11:50 05/20/18 12:07 05/20/18 11:50 05/20/18 11:50 05/20/18 11:50 General appearance: Present: cooperative, disheveled, A&O X 3, pleasant, no acute distress Exam: Gen.: Nonacute distress, alert and oriented 3 ENT: Mucosal membranes moist Respiratory: Lungs are clear to auscultation bilaterally without any wheezing rhonchi or rales Cardiovascular: Normal S1 and S2 regular rate rhythm no murmurs rubs or gallops Abdomen: Soft, nontender and nondistended with positive bowel sounds Extremities: No lower extremity edema Skin: Normal color - Patient Status Disposition: Home, Self-Care Condition: Fair - Discharge Instructions Follow Up With: Tucker Ellis [Resident] - 05/26/18 2:00 pm (YOU WILL BE RECEIVING A NEW PATIENT PACKET IN THE MAIL PLEASE FILL IT OUT AND TAKE IT WITH YOU TO YOUR APPOINTMENT. ALSO TAKE TO YOUR APPOINTMENT INSURANCE CARD, PICTURE ID, A LIST OF ALL MEDICATIONS INCULDING OVER THE COUNTER. THIS OFFICE DOES NOT PRESCRIBE CONTROLLED MEDICATIONS. SHOW UP 15 MINUTES EARLY. IF YOU NEED TO CANCEL PLEASE CALL [phone] 24 HOURS PRIOR TO YOUR APPOINTMENT. THE OFFICE ADVISED IF YOU DO NOT SHOW UP FOR THIS APPOINTMENT THEY WILL NOT BE ABLE TO FIND YOU ANOTHER DOCTOR.)
== END 2018-05-20 13:25 | disposition home or self-care (01) | DRG 897 ==
LOC: 3BNU 13:05 → EMEROOARM 13:05 → SUATTDRO 16:49 → 3BNU 17:09 → ICNU 05-16 23:38 → 2NNU 05-17 15:54
PROVIDERS: ADMIT Internal Medicine; ATTEND Hospitalist

== ENCOUNTER 2018-05-22 11:26 | Inpatient (IN) ==
[2018-05-22] MEDS ORDERED: 0.9 % Sodium Chloride 1,000 ML IVC ONE (12:07)
[2018-05-22] MEDS ORDERED: Isovue-370 500 ML INFUS..BTL IV ONE (12:09)
--- NOTE | 2018-05-22 12:09 | Emergency Department Note ---
Disposition Clinical Impression: Cellulitis, Alcohol dependence with withdrawal Disposition: Still a Patient Condition: Fair Referrals: NONE,PCP [Primary Care Provider] - Forms: ED Satisfaction Letter General Adult HPI - General Chief complaint: ED Alcohol Abuse Stated complaint: ETOH withdrawal,spider bite Time Seen by Provider: 05/22/18 11:48 - History of Present Illness Pain Scale: 7 - Related Data Home Medications Medication Instructions Recorded Confirmed Atenolol [Tenormin] 25 mg PO DAILY 05/18/18 05/22/18 Gabapentin [Neurontin] 100 mg PO TID 05/18/18 05/22/18 Lisinopril [Zestril] 5 mg PO DAILY 05/18/18 05/22/18 Metformin HCl [Glucophage] 1,000 mg PO BIDWM 05/18/18 05/22/18 Mirtazapine 7.5 mg PO HS 05/18/18 05/22/18 amLODIPine [Norvasc] 10 mg PO DAILY 05/18/18 05/22/18 hydrOXYzine pamoate [Hydroxyzine 25 mg PO TID PRN 05/18/18 05/22/18 Pamoate] Allergies Allergy/AdvReac Type Severity Reaction Status Date / Time Amoxicillin Allergy Hives Verified 05/15/18 13:10 Penicillins Allergy Hives Verified 05/15/18 13:10 quetiapine [From Seroquel] Allergy Hives Verified 05/15/18 13:10 chlordiazepoxide AdvReac Gastrointestinal Verified 05/15/18 13:10 [From Librium] Upset Past Medical History - Past Medical History Medical history: Reports: diabetes, hypertension Surgical history: Reports: no surgical history Psychiatric history: Reports: depression - Social History Smoking Status: Current every day smoker Smokeless Tobacco Status: No Alcohol use: Reports: heavy, recent Drug use: Reports: opiates, marijuana, IV Drug Use, prescription drug abuse Course Vital Signs Temperature 98.1 F 05/22/18 11:40 Pulse Rate 102 05/22/18 11:40 Respiratory Rate 22 05/22/18 11:40 Blood Pressure 160/84 05/22/18 11:40 O2 Sat by Pulse Oximetry 95 05/22/18 11:40 Temperature 98.1 F 05/22/18 12:06 Pulse Rate 98 05/22/18 16:35 Respiratory Rate 22 05/22/18 16:35 Blood Pressure 155/91 05/22/18 16:35 O2 Sat by Pulse Oximetry 100 05/22/18 16:35 Oxygen Delivery Oxygen Delivery Room Air Medical Decision Making - Lab Data Result diagrams: 05/22/18 12:34 05/22/18 12:34 Lab Results 05/22/18 05/22/18 05/22/18 Range/Units 12:34 12:34 12:34 WBC 12.6 H (4.3-11.1) K/mcL RBC 5.00 (4.19-5.50) M/mcL Hgb 14.8 (12.9-16.9) g/dL Hct 44.6 (37.5-50.1) % MCV 89.2 (83.0-100.0) fL MCH 29.6 (28.0-33.3) pg MCHC 33.2 (31.6-35.5) g/dL RDW 14.0 (11.5-14.5) % Plt Count 192 (140-400) K/mcL MPV 10.0 (9.4-12.4) fL Immature Gran % 0.4 (0-4) % Seg Neutrophils % 75.6 % Lymphocytes % 14.5 % Monocytes % 7.7 % Eosinophils % 1.2 % Basophils % 0.6 % Neutrophils # 9.5 H (1.6-8.9) K/mcL Lymphocytes # 1.8 (0.6-4.6) K/mcL Monocytes # 1.0 (0.0-1.3) K/mcL Eosinophils # 0.2 (0.0-0.6) K/mcL Basophils # 0.1 (0.0-0.2) K/mcL Sodium 135 L (136-145) mEq/L Potassium 3.4 L (3.5-5.1) mEq/L Chloride 102 (98-107) mEq/L Carbon Dioxide 26 (23-29) mEq/L BUN 11 (6-20) mg/dL Creatinine 0.78 (0.70-1.30) mg/dL Est GFR ( Amer) > 60 (> 60) Est GFR (Non-Af Amer) > 60 (> 60) BUN/Creatinine Ratio 14 (6-26) Glucose 199 H (70-105) mg/dL Calculated Osmolality 285 (280-300) Lactic Acid 1.8 (0.5-2.2) mmol/L Calcium 9.0 (8.6-10.3) mg/dL Phosphorus 2.3 L (2.7-4.5) mg/dL Magnesium 1.8 (1.6-2.6) mg/dL Total Bilirubin 0.8 (0.3-1.0) mg/dL Direct Bilirubin 0.3 H (0.0-0.2) mg/dL Indirect Bilirubin 0.5 (0.0-1.2) mg/dL AST 98 H (13-39) Units/L ALT 181 H (7-52) Units/L Alkaline Phosphatase 78 (34-104) Units/L Troponin I < 0.03 (< 0.04) ng/mL Serum Total Protein 7.5 (6.4-8.9) g/dL Albumin 3.9 (3.5-5.7) g/dL Globulin 3.6 H (2.4-3.5) g/dL Albumin/Globulin Ratio 1.1 (1.1-2.2) Lipase 24 (11-82) Units/L Urine Color (Yellow) Urine Clarity (Clear) Urine pH (5.0-8.0) pH Units Ur Specific [place] (1.010-1.025) Urine Protein (Neg-Trace) mg/dL Urine Glucose (UA) (Normal) mg/dL Urine Ketones (Negative) mg/dL Urine Blood (Negative) Urine Nitrite (Negative) Urine Bilirubin (Negative) Urine Urobilinogen (Normal) mg/dL Ur Leukocyte Esterase (Negative) Ur Culture Indicated? (NO) Ethyl Alcohol 37 H (Less than 10) mg/dL 05/22/18 Range/Units 12:43 WBC (4.3-11.1) K/mcL RBC (4.19-5.50) M/mcL Hgb (12.9-16.9) g/dL Hct (37.5-50.1) % MCV (83.0-100.0) fL MCH (28.0-33.3) pg MCHC (31.6-35.5) g/dL RDW (11.5-14.5) % Plt Count (140-400) K/mcL MPV (9.4-12.4) fL Immature Gran % (0-4) % Seg Neutrophils % % Lymphocytes % % Monocytes % % Eosinophils % % Basophils % % Neutrophils # (1.6-8.9) K/mcL Lymphocytes # (0.6-4.6) K/mcL Monocytes # (0.0-1.3) K/mcL Eosinophils # (0.0-0.6) K/mcL Basophils # (0.0-0.2) K/mcL Sodium (136-145) mEq/L Potassium (3.5-5.1) mEq/L Chloride (98-107) mEq/L Carbon Dioxide (23-29) mEq/L BUN (6-20) mg/dL Creatinine (0.70-1.30) mg/dL Est GFR ( Amer) (> 60) Est GFR (Non-Af Amer) (> 60) BUN/Creatinine Ratio (6-26) Glucose (70-105) mg/dL Calculated Osmolality (280-300) Lactic Acid (0.5-2.2) mmol/L Calcium (8.6-10.3) mg/dL Phosphorus (2.7-4.5) mg/dL Magnesium (1.6-2.6) mg/dL Total Bilirubin (0.3-1.0) mg/dL Direct Bilirubin (0.0-0.2) mg/dL Indirect Bilirubin (0.0-1.2) mg/dL AST (13-39) Units/L ALT (7-52) Units/L Alkaline Phosphatase (34-104) Units/L Troponin I (< 0.04) ng/mL Serum Total Protein (6.4-8.9) g/dL Albumin (3.5-5.7) g/dL Globulin (2.4-3.5) g/dL Albumin/Globulin Ratio (1.1-2.2) Lipase (11-82) Units/L Urine Color Yellow (Yellow) Urine Clarity Clear (Clear) Urine pH 6.0 (5.0-8.0) pH Units Ur Specific [place] 1.006 L (1.010-1.025) Urine Protein Negative (Neg-Trace) mg/dL Urine Glucose (UA) Normal (Normal) mg/dL Urine Ketones Negative (Negative) mg/dL Urine Blood Negative (Negative) Urine Nitrite Negative (Negative) Urine Bilirubin Negative (Negative) Urine Urobilinogen Normal (Normal) mg/dL Ur Leukocyte Esterase Negative (Negative) Ur Culture Indicated? NO (NO) Ethyl Alcohol (Less than 10) mg/dL - EKG Data EKG #1 EKG attestation: Yes I reviewed and interpreted this EKG. EKG results narrative: Normal sinus rhythm at 99. No ST segment changes or T-wave inversions. QT 356 with a QTC of 457. VT interval 150. Unchanged when compared to EKG from May 15. Attestation Statement - Attestation Attestation: I examined this patient and my medical decision-making was reviewed with the Resident Physician. I agree with the documented findings, disposition and treatment plan as described except to the extent set forth below. Patient presents to the ED with an abscess. Patient noticed an abscess on his buttock Friday. Patient is homeless and sleeps outside under trucks. He is also an alcoholic who drinks very large quantities of alcohol. Last drink was yesterday around 4 PM. On examination he has a large firm abscess on the medial right gluteal. Plan. Patient is tachycardic. Septic workup. CT pelvis. CT does not show abscess. Patient be treated for cellulitis. Admitted to medicine. Pelvis CT 05/22/18 12:09 IMPRESSION: 1. Right perineal cellulitis without evidence of a perirectal abscess. D/ / Andrea Connor MD / Andrea Connor MD Interpreting Provider: Andrea Connor MD
--- NOTE | 2018-05-22 12:32 | Emergency Department Note ---
Disposition Clinical Impression: Cellulitis, Alcohol dependence with withdrawal Disposition: Still a Patient Condition: Fair Referrals: NONE,PCP [Primary Care Provider] - Forms: ED Satisfaction Letter General Adult HPI - General Chief complaint: ED Skin/Abscess/Foreign Body Stated complaint: ETOH withdrawal,spider bite Time Seen by Provider: 05/22/18 11:48 Source: patient Limitations: no limitations - History of Present Illness HPI Narrative: 47 YO M here for "spider bite" in right buttox and alcohol withdrawal with history of alcohol abuse. Since last fri patient felt pain and swelling in his right buttox which he thinks is form a spider. He states pain is increased by walking, nonradiating, rated 7/10. Patient started drinking last fri, drinking 30 beers that day. He continued drinking dirnking 17 beers. Last drink was at night. Patient states he blacked out both days. Today he is epxeriencing nausea without vomitting, mid epigastric abdominal pain, photophobia, phonophobia, reports heairng new ringing in his ears, headache. Reports that he does not remember falling or hitting his head. Patient was at ED for "alcohol withdrawal" last week. Reports when he is going through withdrawals he experiences derlium tremens and seizures (occasionnally). He is a recreational drug user abusing persciprtion meds. Took a percocet yesterday. He is requesting valium and adivan. No CP, SOB, fever, night sweats, chills. Pain Scale: 7 - Related Data Home Medications Medication Instructions Recorded Confirmed Atenolol [Tenormin] 25 mg PO DAILY 05/18/18 05/22/18 Gabapentin [Neurontin] 100 mg PO TID 05/18/18 05/22/18 Lisinopril [Zestril] 5 mg PO DAILY 05/18/18 05/22/18 Metformin HCl [Glucophage] 1,000 mg PO BIDWM 05/18/18 05/22/18 Mirtazapine 7.5 mg PO HS 05/18/18 05/22/18 amLODIPine [Norvasc] 10 mg PO DAILY 05/18/18 05/22/18 hydrOXYzine pamoate [Hydroxyzine 25 mg PO TID PRN 05/18/18 05/22/18 Pamoate] Allergies Allergy/AdvReac Type Severity Reaction Status Date / Time Amoxicillin Allergy Hives Verified 05/15/18 13:10 Penicillins Allergy Hives Verified 05/15/18 13:10 quetiapine [From Seroquel] Allergy Hives Verified 05/15/18 13:10 chlordiazepoxide AdvReac Gastrointestinal Verified 05/15/18 13:10 [From Librium] Upset All systems ED: reviewed and negative except as stated. Eyes: Reports: as per HPI. Denies: eye pain, eye discharge, vision change Cardiovascular: Denies: chest pain, palpitations Respiratory: Denies: cough, dyspnea, wheezes, hemoptysis, stridor, sputum production Genitourinary: Reports: as per HPI Neurological: Reports: headache. Denies: weakness, numbness, paresthesias, confusion, abnormal gait, vertigo, other Past Medical History - Past Medical History Source: patient Medical history: Reports: diabetes, hypertension Surgical history: Reports: no surgical history Psychiatric history: Reports: depression - Social History Smoking Status: Current every day smoker Smokeless Tobacco Status: No Alcohol use: Reports: heavy, recent Drug use: Reports: opiates, marijuana, IV Drug Use, prescription drug abuse Physical Exam - General Limitations: no limitations General appearance: alert, in no apparent distress - Head Head exam: atraumatic, normocephalic - Eye Eye exam: Present: normal appearance, PERRL, EOMI - Chest Chest inspection: Present: normal inspection, symmetric chest wall rise - Respiratory Respiratory exam: Present: normal lung sounds bilaterally. Absent: respiratory distress, wheezes, stridor, accessory muscle use, prolonged expiratory phase - Cardiovascular Cardiovascular exam: Present: regular rate, normal rhythm, normal heart sounds - Abdominal Exam Abdominal exam: Present: soft, tenderness, distention. Absent: guarding, rebound, rigidity Abdominal tenderness: Present: epigastrium - Neurological Exam Neurological exam: Present: alert, oriented X3 - Psychiatric Psychiatric exam: Present: normal affect, normal mood - Skin Skin exam: Present: other (7cm abscess with necrotic center and erythematous margins on right buttocks. ) Course Course Narrative: Sepsis protocol ordered. CT pelvis with contrast for abscess. Given vancomycin for MRSA coverage. Patient is homeless so most likely cannot treat outpatient, so will try to admit after his labs and imaging are back. Patient's last drink was last night so most likely not going through withdrawals. Vital Signs Temperature 98.1 F 05/22/18 11:40 Pulse Rate 102 05/22/18 11:40 Respiratory Rate 22 05/22/18 11:40 Blood Pressure 160/84 05/22/18 11:40 O2 Sat by Pulse Oximetry 95 05/22/18 11:40 Temperature 98.1 F 05/22/18 12:06 Pulse Rate 98 05/22/18 16:35 Respiratory Rate 22 05/22/18 16:35 Blood Pressure 155/91 05/22/18 16:35 O2 Sat by Pulse Oximetry 100 05/22/18 16:35 Oxygen Delivery Oxygen Delivery Room Air Medical Decision Making - Lab Data Result diagrams: 05/22/18 12:34 05/22/18 12:34 Lab Results 05/22/18 05/22/18 05/22/18 Range/Units 12:34 12:34 12:34 WBC 12.6 H (4.3-11.1) K/mcL RBC 5.00 (4.19-5.50) M/mcL Hgb 14.8 (12.9-16.9) g/dL Hct 44.6 (37.5-50.1) % MCV 89.2 (83.0-100.0) fL MCH 29.6 (28.0-33.3) pg MCHC 33.2 (31.6-35.5) g/dL RDW 14.0 (11.5-14.5) % Plt Count 192 (140-400) K/mcL MPV 10.0 (9.4-12.4) fL Immature Gran % 0.4 (0-4) % Seg Neutrophils % 75.6 % Lymphocytes % 14.5 % Monocytes % 7.7 % Eosinophils % 1.2 % Basophils % 0.6 % Neutrophils # 9.5 H (1.6-8.9) K/mcL Lymphocytes # 1.8 (0.6-4.6) K/mcL Monocytes # 1.0 (0.0-1.3) K/mcL Eosinophils # 0.2 (0.0-0.6) K/mcL Basophils # 0.1 (0.0-0.2) K/mcL Sodium 135 L (136-145) mEq/L Potassium 3.4 L (3.5-5.1) mEq/L Chloride 102 (98-107) mEq/L Carbon Dioxide 26 (23-29) mEq/L BUN 11 (6-20) mg/dL Creatinine 0.78 (0.70-1.30) mg/dL Est GFR ( Amer) > 60 (> 60) Est GFR (Non-Af Amer) > 60 (> 60) BUN/Creatinine Ratio 14 (6-26) Glucose 199 H (70-105) mg/dL Calculated Osmolality 285 (280-300) Lactic Acid 1.8 (0.5-2.2) mmol/L Calcium 9.0 (8.6-10.3) mg/dL Phosphorus 2.3 L (2.7-4.5) mg/dL Magnesium 1.8 (1.6-2.6) mg/dL Total Bilirubin 0.8 (0.3-1.0) mg/dL Direct Bilirubin 0.3 H (0.0-0.2) mg/dL Indirect Bilirubin 0.5 (0.0-1.2) mg/dL AST 98 H (13-39) Units/L ALT 181 H (7-52) Units/L Alkaline Phosphatase 78 (34-104) Units/L Troponin I < 0.03 (< 0.04) ng/mL Serum Total Protein 7.5 (6.4-8.9) g/dL Albumin 3.9 (3.5-5.7) g/dL Globulin 3.6 H (2.4-3.5) g/dL Albumin/Globulin Ratio 1.1 (1.1-2.2) Lipase 24 (11-82) Units/L Urine Color (Yellow) Urine Clarity (Clear) Urine pH (5.0-8.0) pH Units Ur Specific [place] (1.010-1.025) Urine Protein (Neg-Trace) mg/dL Urine Glucose (UA) (Normal) mg/dL Urine Ketones (Negative) mg/dL Urine Blood (Negative) Urine Nitrite (Negative) Urine Bilirubin (Negative) Urine Urobilinogen (Normal) mg/dL Ur Leukocyte Esterase (Negative) Ur Culture Indicated? (NO) Ethyl Alcohol 37 H (Less than 10) mg/dL 05/22/18 Range/Units 12:43 WBC (4.3-11.1) K/mcL RBC (4.19-5.50) M/mcL Hgb (12.9-16.9) g/dL Hct (37.5-50.1) % MCV (83.0-100.0) fL MCH (28.0-33.3) pg MCHC (31.6-35.5) g/dL RDW (11.5-14.5) % Plt Count (140-400) K/mcL MPV (9.4-12.4) fL Immature Gran % (0-4) % Seg Neutrophils % % Lymphocytes % % Monocytes % % Eosinophils % % Basophils % % Neutrophils # (1.6-8.9) K/mcL Lymphocytes # (0.6-4.6) K/mcL Monocytes # (0.0-1.3) K/mcL Eosinophils # (0.0-0.6) K/mcL Basophils # (0.0-0.2) K/mcL Sodium (136-145) mEq/L Potassium (3.5-5.1) mEq/L Chloride (98-107) mEq/L Carbon Dioxide (23-29) mEq/L BUN (6-20) mg/dL Creatinine (0.70-1.30) mg/dL Est GFR ( Amer) (> 60) Est GFR (Non-Af Amer) (> 60) BUN/Creatinine Ratio (6-26) Glucose (70-105) mg/dL Calculated Osmolality (280-300) Lactic Acid (0.5-2.2) mmol/L Calcium (8.6-10.3) mg/dL Phosphorus (2.7-4.5) mg/dL Magnesium (1.6-2.6) mg/dL Total Bilirubin (0.3-1.0) mg/dL Direct Bilirubin (0.0-0.2) mg/dL Indirect Bilirubin (0.0-1.2) mg/dL AST (13-39) Units/L ALT (7-52) Units/L Alkaline Phosphatase (34-104) Units/L Troponin I (< 0.04) ng/mL Serum Total Protein (6.4-8.9) g/dL Albumin (3.5-5.7) g/dL Globulin (2.4-3.5) g/dL Albumin/Globulin Ratio (1.1-2.2) Lipase (11-82) Units/L Urine Color Yellow (Yellow) Urine Clarity Clear (Clear) Urine pH 6.0 (5.0-8.0) pH Units Ur Specific [place] 1.006 L (1.010-1.025) Urine Protein Negative (Neg-Trace) mg/dL Urine Glucose (UA) Normal (Normal) mg/dL Urine Ketones Negative (Negative) mg/dL Urine Blood Negative (Negative) Urine Nitrite Negative (Negative) Urine Bilirubin Negative (Negative) Urine Urobilinogen Normal (Normal) mg/dL Ur Leukocyte Esterase Negative (Negative) Ur Culture Indicated? NO (NO) Ethyl Alcohol (Less than 10) mg/dL - Radiology Data Radiology results reviewed: Yes I reviewed the patient's radiology results. Pelvis CT 05/22/18 12:09 IMPRESSION: 1. Right perineal cellulitis without evidence of a perirectal abscess. D/ / Andrea Connor MD / Andrea Connor MD Interpreting Provider: Andrea Connor MD
[2018-05-22 12:53] LABS: Bilirubin,Urine Negative (Negative); Blood,Urine Negative (Negative); Clarity,Urine Clear (Clear); Color,Urine Yellow (Yellow); Glucose,Urine (UA) Normal (Normal); Ketones,Urine Negative (Negative); Leukocyte Esterase,Urine Negative (Negative); Nitrite,Urine Negative (Negative); Protein,Urine Negative (Neg-Trace); Specific Gravity,Urine 1.006 (1.010-1.025); Urobilinogen,Urine Normal (Normal)
[2018-05-22 12:54] LABS: Basophils # 0.1 K/mcL (0.0-0.2); Basophils % 0.6 %; Eosinophils # 0.2 K/mcL (0.0-0.6); Eosinophils % 1.2 %; Hematocrit 44.6 % (37.5-50.1); Hemoglobin 14.8 g/dL (12.9-16.9); Immature Granulocytes % 0.4 % (0-4); Lymphocytes # 1.8 K/mcL (0.6-4.6); Lymphocytes % 14.5 %; Mean Corpuscular HGB Conc 33.2 g/dL (31.6-35.5); Mean Corpuscular Hemoglobin 29.6 pg (28.0-33.3); Mean Corpuscular Volume 89.2 fL (83.0-100.0); Monocytes % 7.7 %; Neutrophils # 9.5 K/mcL (1.6-8.9); Platelet Count 192 K/mcL (140-400); Segmented Neutrophils % 75.6 %
[2018-05-22 13:10] LABS: Troponin I < 0.03 ng/mL (< 0.04)
[2018-05-22 13:15] LABS: Alanine Aminotransferase 181 Units/L (7-52); Albumin 3.9 g/dL (3.5-5.7); Albumin/Globulin Ratio 1.1 (1.1-2.2); Alkaline Phosphatase 78 Units/L (34-104); Aspartate Amino Transferase 98 Units/L (13-39); BUN/Creatinine Ratio 14 (6-26); Bilirubin,Direct 0.3 mg/dL (0.0-0.2); Bilirubin,Indirect 0.5 mg/dL (0.0-1.2); Bilirubin,Total 0.8 mg/dL (0.3-1.0); Blood Urea Nitrogen 11 mg/dL (6-20); Carbon Dioxide 26 mEq/L (23-29); Chloride 102 mEq/L (98-107); Globulin 3.6 g/dL (2.4-3.5); Glucose 199 mg/dL (70-105); Lipase 24 Units/L (11-82); Magnesium 1.8 mg/dL (1.6-2.6); Osmolality,Calculated 285 (280-300); Phosphorous 2.3 mg/dL (2.7-4.5); Potassium 3.4 mEq/L (3.5-5.1); Sodium 135 mEq/L (136-145); Total Protein 7.5 g/dL (6.4-8.9); eGFR For Non-African Americans > 60 (> 60)
[2018-05-22] MEDS ORDERED: Naloxone 0.4 MG/ML INJ IVP PRN (15:53)
[2018-05-22] MEDS ORDERED: *HR* Dextrose 50 % in Water (Syg) 50 ML SYRINGE IVP PRN (15:53)
[2018-05-22] MEDS ORDERED: D5% in Water 1,000 ML IVC PRN (15:53)
[2018-05-22] MEDS ORDERED: *HR* LORazepam 2 MG/ML VIAL IVP PRN ×2 (15:53)
[2018-05-22] MEDS ORDERED: *HR* Promethazine 25 MG/ML VIAL IVP PRN (15:53)
[2018-05-22] MEDS ORDERED: Dextrose Gel 15 GM/37.5 ML TUBE PO PRN ×2 (15:53)
[2018-05-22] MEDS ORDERED: 0.9 % Sodium Chloride 1,000 ML IVC SCH (16:00)
--- NOTE | 2018-05-22 16:05 | Internal Med History&Physical ---
Addendum entered and electronically signed by Cody Gallo 05/22/18 17:01: Consult to surgery Pt will need 2-3 days of inpatient IV abx. Original Note: <GalloCody - Last Filed: 05/22/18 16:50> Date of Encounter: 05/22/18 Time of Encounter: 16:00 Internal Medicine - H&P: HPI Chief complaint: "spider bite" "alcohol withdrawal" Admitted From: Emergency Dept Plans for Post Hospital Care: Transfer Other History of present illness: Mr. Adams is a 47 year old male with PMH of EtOH abuse, HTN, polysubstance abuse and T2DM. He presented to the ER with c/o increasing right buttock pain from a "spider bite" that he started noticing friday. The pt has had increasing pain since he discovered the bite and the wound has started to drain. The patient also c/o etoh withdrawal. He drinks at least a 12 pack of beer of a day for the last 4-5 years. Last night was his last drink. He is experiencing ringing in the ears, headache, abd pain and photophobia. He has to turn the bright lights down in the room. He reports hallucinations and "feeling delirious." He has a hx of poly-substance prescription abuse but hasn't shot up in years. He took a percocet yesterday, which didn't do anything for his shakes. Past Med Surg Social Fam HX - Past Medical History Medical history: diabetes, hypertension Additional medical history: Cellulitis Psychiatric history: depression - Past Surgical History Surgical History: no surgical history Additional surgical history: n/a - Social History Smoking Status: Current every day smoker Smokeless Tobacco Status: No Alcohol use: heavy, recent Drug use: opiates, marijuana, IV Drug Use, prescription drug abuse - Family History Father Living Status: Hx Family Cardiac Disorders: Yes ([place] in 50s) Mother Living Status: Hx Family Cardiac Disorders: Yes ([place] in 50s) Internal Medicine - H&P: Meds Atenolol [Tenormin] 25 mg PO DAILY 05/18/18 [History] Gabapentin [Neurontin] 100 mg PO TID 05/18/18 [History] Lisinopril [Zestril] 5 mg PO DAILY 05/18/18 [History] Metformin HCl [Glucophage] 1,000 mg PO BIDWM 05/18/18 [History] Mirtazapine 7.5 mg PO HS 05/18/18 [History] amLODIPine [Norvasc] 10 mg PO DAILY 05/18/18 [History] hydrOXYzine pamoate [Hydroxyzine Pamoate] 25 mg PO TID PRN 05/18/18 [History] 3 Allergy/AdvReac Type Severity Reaction Status Date / Time Amoxicillin Allergy Hives Verified 05/15/18 13:10 Penicillins Allergy Hives Verified 05/15/18 13:10 quetiapine [From Seroquel] Allergy Hives Verified 05/15/18 13:10 chlordiazepoxide AdvReac Gastrointestinal Verified 05/15/18 13:10 [From Librium] Upset All Systems PM: A 10-system review of systems was performed and is negative for pertinent findings except as documented above in the HPI. - Constitutional Constitutional: chills, fatigue, fever(s) - Cardiovascular Cardiovascular ROS IM: no chest pain, no dyspnea, no dyspnea on exertion, no lightheadedness - Respiratory Respiratory: no cough, no dyspnea, no pain on inspiration - Gastrointestinal Gastrointestinal: abdominal pain, nausea, vomiting, no cramping, no diarrhea - Genitourinary Genitourinary ROS male: no dysuria - Musculoskeletal Musculoskeletal ROS IM: no arthralgias, no numbness, no tingling - Integumentary Integumentary IM: sores - Neurological Neurological ROS: no numbness, no tingling - Constitutional Vitals: Temp Pulse Resp BP Pulse Ox 98.1 F 95 16 160/84 98 05/22/18 12:06 05/22/18 14:46 05/22/18 14:46 05/22/18 12:06 05/22/18 14:46 Exam: General - in mild distress, disscheveled Cardio - S1S2 tacycardia no MRG Lungs - decreased breath sounds secondary to body habitus Abd - NTND, no rebound or guarding, obese skin - right buttock cellulitis with small amount of black eschar in the center of wound extremities - no edema Internal Med - H&P Results - Labs CBC & Chem 7: 05/22/18 12:34 05/22/18 12:34 Labs: Short CBC 05/22/18 Range/Units 12:34 WBC 12.6 H (4.3-11.1) K/mcL Hgb 14.8 (12.9-16.9) g/dL Hct 44.6 (37.5-50.1) % Plt Count 192 (140-400) K/mcL Neutrophils # 9.5 H (1.6-8.9) K/mcL BMP 05/22/18 12:34 Sodium 135 L Potassium 3.4 L Chloride 102 Carbon Dioxide 26 BUN 11 Creatinine 0.78 Glucose 199 H Calcium 9.0 Cardiac Enzymes 05/22/18 Range/Units 12:34 Troponin I < 0.03 (< 0.04) ng/mL Liver Function 05/22/18 Range/Units 12:34 Total Bilirubin 0.8 (0.3-1.0) mg/dL Direct Bilirubin 0.3 H (0.0-0.2) mg/dL AST 98 H (13-39) Units/L ALT 181 H (7-52) Units/L Alkaline Phosphatase 78 (34-104) Units/L Albumin 3.9 (3.5-5.7) g/dL Urine 05/22/18 Range/Units 12:43 Urine Color Yellow (Yellow) Urine Clarity Clear (Clear) Urine pH 6.0 (5.0-8.0) pH Units Ur Specific [place] 1.006 L (1.010-1.025) Urine Protein Negative (Neg-Trace) mg/dL Urine Glucose (UA) Normal (Normal) mg/dL - Impressions ITS Impressions Pelvis CT 05/22/18 12:09 IMPRESSION: 1. Right perineal cellulitis without evidence of a perirectal abscess. D/ / Andrea Connor MD / Andrea Connor MD Interpreting Provider: Andrea Connor MD - Assessment and plan (1) Polysubstance abuse Current Visit: No Status: Chronic Assessment and plan: Has hx of IVDU -denies active drug abuse, other than a percocet yesterday and marijuana occasionally -social work consulted (2) Alcohol withdrawal Current Visit: Yes Status: Acute Assessment and plan: [place] protocol -pt has hx of chronic alcohol abuse -drinks at least a 12 pack a day, last drink yesterday -up to 30 drinks a day sometimes Plan: -neuro checks -head of bed elevated, aspiration precautions -CIWA protocol, lorazepam as per protocol Qualifiers: Complication of substance-induced condition: with unspecified complication Qualified Code(s): F10.239 - Alcohol dependence with withdrawal, unspecified (3) Hypertension Current Visit: No Status: Resolved Assessment and plan: BP 160/81 -poor control -elevation may be secondary to pain vs etoh withdrawal -continue home lisinopril and norvasc Qualifiers: Hypertension type: essential hypertension Qualified Code(s): I10 - Essential (primary) hypertension (4) DVT prophylaxis Current Visit: Yes Status: Acute Assessment and plan: heparin sq (5) DM2 (diabetes mellitus, type 2) Current Visit: No Status: Chronic Assessment and plan: Low dose sliding scale -glucose 199 -hold metformin -diabetic diet Qualifiers: Diabetes mellitus manager terminal insulin use: without skilled nursing use Diabetes mellitus complication status: without complication Qualified Code(s): E11.9 - Type 2 diabetes mellitus without complications (6) Hypokalemia Current Visit: Yes Status: Acute Assessment and plan: Potassium 3.4 -replaced -recheck in AM (7) Hypophosphatemia Current Visit: Yes Status: Acute Assessment and plan: P 2.3 -replaced -recheck in AM (8) Morbid obesity Current Visit: No Status: Chronic Assessment and plan: BMI 49.9 -lifestyle changes recommended (9) Sepsis Current Visit: Yes Status: Acute Assessment and plan: Sepsis criteria based off of WBC 12.6, HR 102, RR 22 -possible source of infxn is right perineal cellulitis CT abd and pelvis - right perineal cellulitis w/o evidence of perirectal abscess Plan: -[facility] pharmacy to dose, flagyl, cefepime day 1 -blood cultures pending -100cc/hr 0.9% NS x 2 bags -cbc in AM Qualifiers: Sepsis type: sepsis due to unspecified organism Qualified Code(s): A41.9 - Sepsis, unspecified organism - Time Spent With Patient Total time spent is greater than 50% in coordination of care (as documented) at patient's floor/unit and/or counseling patient: less than 15 minutes <Willian Prince - Last Filed: 05/22/18 17:35> Date of Encounter: 05/22/18 Internal Medicine - H&P: HPI History of present illness: Mr. Adams is a 47 year old male All Systems PM: A 10-system review of systems was performed and is negative for pertinent findings except as documented above in the HPI. - Constitutional Vitals: Temp Pulse Resp BP Pulse Ox 98.1 F 98 22 155/91 100 05/22/18 12:06 05/22/18 16:35 05/22/18 16:35 05/22/18 16:35 05/22/18 16:35 Internal Med - H&P Results - Labs CBC & Chem 7: 05/22/18 12:34 05/22/18 12:34 - Assessment and plan (1) Alcohol withdrawal Current Visit: Yes Status: Acute Qualifiers: Complication of substance-induced condition: with unspecified complication Qualified Code(s): F10.239 - Alcohol dependence with withdrawal, unspecified (2) Hypertension Current Visit: No Status: Resolved Qualifiers: Hypertension type: essential hypertension Qualified Code(s): I10 - Essential (primary) hypertension (3) DVT prophylaxis Current Visit: Yes Status: Acute (4) DM2 (diabetes mellitus, type 2) Current Visit: No Status: Chronic Qualifiers: Diabetes mellitus skilled nursing insulin use: without manager terminal use Diabetes mellitus complication status: without complication Qualified Code(s): E11.9 - Type 2 diabetes mellitus without complications (5) Hypokalemia Current Visit: Yes Status: Acute (6) Hypophosphatemia Current Visit: Yes Status: Acute (7) Morbid obesity Current Visit: No Status: Chronic (8) Polysubstance abuse Current Visit: No Status: Chronic (9) Sepsis Current Visit: Yes Status: Acute Qualifiers: Sepsis type: sepsis due to unspecified organism Qualified Code(s): A41.9 - Sepsis, unspecified organism - Time Spent With Patient Total time spent is greater than 50% in coordination of care (as documented) at patient's floor/unit and/or counseling patient: - Attending Attestation I examined this patient and my medical decision-making was reviewed with the Resident Physician. I agree with the documented findings, disposition and treatment plan as described except to the extent set forth below.
[2018-05-22] MEDS ORDERED: *HR* Heparin 5,000 UNIT/ML VIAL SQ SCH (16:15)
[2018-05-22] MEDS ORDERED: Nicotine 14 MG PATCH.TD24 TD SCH (16:15)
[2018-05-22 16:25] LABS: Ethanol 37 mg/dL (Less than 10)
[2018-05-22] MEDS ORDERED: MetroNIDAZOLE 500 MG/100 ML 500 MG/100 ML BAG IVPB SCH (16:53)
[2018-05-22] MEDS ORDERED: hydrOXYzine pamoate 25 MG CAPSULE PO PRN (17:00)
[2018-05-22] MEDS ORDERED: Cefepime HCl 2,000 MG in 0.9 % Sodium Chloride Mini Bag 100 ML IVPB SCH (18:00)
[2018-05-22] MEDS: Insulin LISPRO 300 UNITS/3 ML VIAL SQ SCH ×2 (19:41→20:09)
[2018-05-22] MEDS: Mirtazapine 15 MG TABLET PO SCH (19:56)
[2018-05-22] MEDS: *HR* LORazepam 2 MG/ML VIAL IVP PRN (19:56)
[2018-05-22] MEDS: Gabapentin 100 MG CAPSULE PO SCH (19:56)
[2018-05-22] MEDS: 0.9 % Sodium Chloride 1,000 ML IVC SCH (19:57)
[2018-05-22 21:34] LABS: Amphetamine Screen,Urine Negative ng/mL (Cutoff=1000); Barbiturate Screen,Urine Negative ng/mL (Cutoff=200); Benzodiazepines Screen,Urine Positive ng/mL (Cutoff=200); Cannabinoid Screen,Urine Positive ng/mL (Cutoff = 50); Cocaine Screen,Urine Negative ng/mL (Cutoff= 300); Opiate Screen,Urine Negative ng/mL (Cutoff=300); Phencyclidine Screen,Urine Negative ng/mL (Cutoff=25)
[2018-05-22] MEDS ORDERED: Acetaminophen 325 MG TABLET PO PRN (21:38)
[2018-05-22] MEDS: *HR* Heparin 5,000 UNIT/ML VIAL SQ SCH (21:43)
[2018-05-22] MEDS: MetroNIDAZOLE 500 MG/100 ML 500 MG/100 ML BAG IVPB SCH (21:43)
[2018-05-22] MEDS ORDERED: traMADol 50 MG TABLET PO ONE (21:45)
[2018-05-22] MEDS: Nicotine 14 MG PATCH.TD24 TD SCH (21:45)
[2018-05-23] MEDS ORDERED: MetroNIDAZOLE 500 MG/100 ML 500 MG/100 ML BAG IVPB SCH
[2018-05-23 01:37] LABS: Basophils % 0.4 %; Eosinophils # 0.3 K/mcL (0.0-0.6); Eosinophils % 3.2 %; Hematocrit 39.5 % (37.5-50.1); Immature Granulocytes % 0.2 % (0-4); Lymphocytes # 1.9 K/mcL (0.6-4.6); Lymphocytes % 20.3 %; Mean Corpuscular HGB Conc 33.2 g/dL (31.6-35.5); Mean Corpuscular Volume 87.4 fL (83.0-100.0); Mean Platelet Volume 10.1 fL (9.4-12.4); Monocytes # 0.9 K/mcL (0.0-1.3); Monocytes % 9.4 %; Neutrophils # 6.3 K/mcL (1.6-8.9); Platelet Count 189 K/mcL (140-400); Red Blood Count 4.52 M/mcL (4.19-5.50); Segmented Neutrophils % 66.5 %
[2018-05-23 01:39] LABS: Hemoglobin 13.1 g/dL (12.9-16.9)
[2018-05-23 04:27] LABS: Alanine Aminotransferase 158 Units/L (7-52); Albumin 3.6 g/dL (3.5-5.7); Albumin/Globulin Ratio 1.1 (1.1-2.2); Alkaline Phosphatase 69 Units/L (34-104); Aspartate Amino Transferase 83 Units/L (13-39); BUN/Creatinine Ratio 16 (6-26); Bilirubin,Total 0.6 mg/dL (0.3-1.0); Blood Urea Nitrogen 10 mg/dL (6-20); Calcium 8.6 mg/dL (8.6-10.3); Carbon Dioxide 25 mEq/L (23-29); Chloride 104 mEq/L (98-107); Chol/HDL Ratio 3.8 (0-4.9); Cholesterol 125 mg/dL (< 200); Globulin 3.2 g/dL (2.4-3.5); Glucose 119 mg/dL (70-105); HDL Cholesterol 33 mg/dL (40-59); LDL Cholesterol,Calculated 75 mg/dL (0-99); Magnesium 1.7 mg/dL (1.6-2.6); Osmolality,Calculated 280 (280-300); Phosphorous 2.8 mg/dL (2.7-4.5); Potassium 3.7 mEq/L (3.5-5.1); Sodium 135 mEq/L (136-145); Total Protein 6.8 g/dL (6.4-8.9); Triglycerides 83 mg/dL (< 150); eGFR For Non-African Americans > 60 (> 60)
[2018-05-23] MEDS: Cefepime HCl 2,000 MG in Water for inj. (sterile) 20 ML 20 ML IVP SCH ×2 (05:08→17:43)
[2018-05-23] MEDS: MetroNIDAZOLE 500 MG/100 ML 500 MG/100 ML BAG IVPB SCH ×3 (05:08→21:25)
[2018-05-23] MEDS: *HR* Heparin 5,000 UNIT/ML VIAL SQ SCH ×2 (05:20→14:07)
[2018-05-23] MEDS: 0.9 % Sodium Chloride 1,000 ML IVC SCH (05:59)
[2018-05-23] MEDS: Insulin LISPRO 300 UNITS/3 ML VIAL SQ SCH ×3 (08:28→17:40)
[2018-05-23] MEDS: Gabapentin 100 MG CAPSULE PO SCH ×3 (08:29→21:19)
[2018-05-23] MEDS: Nicotine 14 MG PATCH.TD24 TD SCH (08:36)
[2018-05-23] MEDS ORDERED: Thiamine (B-1) 100 MG TABLET PO SCH (09:00)
[2018-05-23] MEDS ORDERED: Vitamin B Complex/Vit C/Vit E 1 EACH TABLET PO SCH (09:00)
[2018-05-23] MEDS ORDERED: Folic Acid 1 MG TABLET PO SCH (09:00)
[2018-05-23] MEDS ORDERED: amLODIPine 5 MG TABLET PO SCH (09:00)
[2018-05-23] MEDS: *HR* LORazepam 2 MG/ML VIAL IVP PRN ×3 (09:01→21:19)
--- NOTE | 2018-05-23 10:09 | Internal Med Progress Note ---
<Andrew Dumont - Last Filed: 05/23/18 10:45> Hospitalist Progress Note - Encounter Date of Encounter: 05/23/18 Time of Encounter: 10:02 - Subjective Interval History: Patient was admitted yesterday for sepsis secondary to cellulitis and alcohol withdrawal Patient seen and examined this morning, no acute events overnight Patient does complain of pain and tremors secondary to alcohol withdrawal but is otherwise stable He denies chest pain, shortness of breath, abdominal pain, nausea or vomiting - Exam Vitals: Temp Pulse Resp BP Pulse Ox 98.6 F 68 17 122/66 96 05/23/18 07:06 05/23/18 07:06 05/23/18 07:06 05/23/18 07:06 05/23/18 07:06 Exam: Patient in no acute distress, alert and oriented 3 Cranial nerves II through XII intact Heart in regular rate and rhythm without murmur or gallop Lungs clear to auscultation without wheeze or rales or rhonchi Abdomen obese and soft and nontender Bilateral lower extremities nonedematous There is a scabbed lesion on the right inferior buttocks close to the gluteal cleft approximately 1 cm in diameter The area underneath is indurated but not fluctuant There is surrounding erythema that extends into the gluteal cleft and outside the scab several centimeters The area of erythema is highly tender to palpation - Assessment and Plan (1) Alcohol withdrawal Current Visit: Yes Status: Acute Assessment and Plan: [facility] protocol -pt has hx of chronic alcohol abuse -drinks at least a 12 pack a day, last drink day prior to admission Plan: -neuro checks -head of bed elevated, aspiration precautions -CIWA protocol, lorazepam as per protocol (2) Hypertension Current Visit: No Status: Chronic Assessment and Plan: BP stable since admission Continue home norvasc and lisinopril (3) DVT prophylaxis Current Visit: Yes Status: Acute Assessment and Plan: heparin sq (4) DM2 (diabetes mellitus, type 2) Current Visit: No Status: Chronic Assessment and Plan: hold home medications glucose stable low dose sliding scale insulin and glucose checks (5) Hypokalemia Current Visit: Yes Status: Resolved Assessment and Plan: Potassium 3.7 continue to monitor (6) Hypophosphatemia Current Visit: Yes Status: Acute Assessment and Plan: P 2.8 continue to monitor (7) Morbid obesity Current Visit: No Status: Chronic Assessment and Plan: BMI 49.9 -lifestyle changes recommended (8) Polysubstance abuse Current Visit: No Status: Chronic Assessment and Plan: Has hx of IVDU -denies active drug abuse, other than a percocet prior to admission and marijuana occasionally -social work consulted (9) Sepsis Current Visit: Yes Status: Acute Assessment and Plan: Sepsis criteria based off of WBC 12.6, HR 102, RR 22 on admission Patient's white count, heart rate, respiratory rate all now within normal limits CT abd and pelvis - right perineal cellulitis w/o evidence of perirectal abscess Plan: -Day 2 Vancomycin, Cefepime, Flagyl -blood cultures pending -100cc/hr 0.9% NS x 2 bags -continue to monitor - Time Spent with Patient Total time spent is greater than 50% in coordination of care (as documented) at patient's floor/unit and/or counseling patient: Internal Medicine: Result - Labs CBC & Chem 7: 05/23/18 01:03 05/23/18 03:50 Labs: Short CBC 05/23/18 Range/Units 01:03 WBC 9.4 (4.3-11.1) K/mcL Hgb 13.1 D (12.9-16.9) g/dL Hct 39.5 (37.5-50.1) % Plt Count 189 (140-400) K/mcL Neutrophils # 6.3 (1.6-8.9) K/mcL BMP 05/23/18 03:50 Sodium 135 L Potassium 3.7 Chloride 104 Carbon Dioxide 25 BUN 10 Creatinine 0.64 L Glucose 119 H Calcium 8.6 Liver Function 05/23/18 Range/Units 03:50 Total Bilirubin 0.6 (0.3-1.0) mg/dL AST 83 H (13-39) Units/L ALT 158 H (7-52) Units/L Alkaline Phosphatase 69 (34-104) Units/L Albumin 3.6 (3.5-5.7) g/dL Consult Discharge Plan - Plan Referrals: NONE,PCP [Primary Care Provider] - <Willian Prince - Last Filed: 05/23/18 16:01> Hospitalist Progress Note - Encounter Date of Encounter: 05/23/18 - Exam Vitals: Temp Pulse Resp BP Pulse Ox 98.3 F 69 18 146/87 95 05/23/18 11:38 05/23/18 11:38 05/23/18 11:38 05/23/18 11:38 05/23/18 11:38 - Assessment and Plan (1) Alcohol withdrawal Current Visit: Yes Status: Acute (2) Hypertension Current Visit: No Status: Chronic (3) DVT prophylaxis Current Visit: Yes Status: Acute (4) DM2 (diabetes mellitus, type 2) Current Visit: No Status: Chronic (5) Hypokalemia Current Visit: Yes Status: Resolved (6) Hypophosphatemia Current Visit: Yes Status: Acute (7) Morbid obesity Current Visit: No Status: Chronic (8) Polysubstance abuse Current Visit: No Status: Chronic (9) Sepsis Current Visit: Yes Status: Acute - Time Spent with Patient Total time spent is greater than 50% in coordination of care (as documented) at patient's floor/unit and/or counseling patient: Internal Medicine: Result - Labs CBC & Chem 7: 05/23/18 01:03 05/23/18 03:50 Labs: Short CBC 05/23/18 Range/Units 01:03 WBC 9.4 (4.3-11.1) K/mcL Hgb 13.1 D (12.9-16.9) g/dL Hct 39.5 (37.5-50.1) % Plt Count 189 (140-400) K/mcL Neutrophils # 6.3 (1.6-8.9) K/mcL BMP 05/23/18 03:50 Sodium 135 L Potassium 3.7 Chloride 104 Carbon Dioxide 25 BUN 10 Creatinine 0.64 L Glucose 119 H Calcium 8.6 Liver Function 05/23/18 Range/Units 03:50 Total Bilirubin 0.6 (0.3-1.0) mg/dL AST 83 H (13-39) Units/L ALT 158 H (7-52) Units/L Alkaline Phosphatase 69 (34-104) Units/L Albumin 3.6 (3.5-5.7) g/dL - Attending Attestation I examined this patient and my medical decision-making was reviewed with the Resident Physician. I agree with the documented findings, disposition and treatment plan as described except to the extent set forth below. <Andrew Dumont - Last Filed: 05/23/18 10:45> (1) Alcohol withdrawal Qualifiers: Complication of substance-induced condition: with unspecified complication Qualified Code(s): F10.239 - Alcohol dependence with withdrawal, unspecified (2) Hypertension Qualifiers: Hypertension type: essential hypertension Qualified Code(s): I10 - Essential (primary) hypertension (4) DM2 (diabetes mellitus, type 2) Qualifiers: Diabetes mellitus nursing home insulin use: without nursing home use Diabetes mellitus complication status: without complication Qualified Code(s): E11.9 - Type 2 diabetes mellitus without complications (9) Sepsis Qualifiers: Sepsis type: sepsis due to unspecified organism Qualified Code(s): A41.9 - Sepsis, unspecified organism <Willian Prince - Last Filed: 05/23/18 16:01> (1) Alcohol withdrawal Qualifiers: Complication of substance-induced condition: with unspecified complication Qualified Code(s): F10.239 - Alcohol dependence with withdrawal, unspecified (2) Hypertension Qualifiers: Hypertension type: essential hypertension Qualified Code(s): I10 - Essential (primary) hypertension (4) DM2 (diabetes mellitus, type 2) Qualifiers: Diabetes mellitus nursing home insulin 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
[2018-05-23] MEDS ORDERED: traMADol 50 MG TABLET PO PRN ×2 (10:29→15:43)
[2018-05-23] MEDS ORDERED: OXYCODONE Oral CONC 10 MG/0.5 ML ORAL.SYG SL PRN (12:47)
--- NOTE | 2018-05-23 17:14 | Electrocardiograph Report ---
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
--- NOTE | 2018-05-23 21:03 | General Surgery Consult Note ---
Date of Encounter: 05/23/18 Time of Encounter: 20:50 History of Present Illness Consult date: 05/23/18 Reason for consult: other (Increasing buttock pain, abscess right buttocks) Requesting physician: Cody Gallo History of present illness: 47-year-old male readmitted to [facility] after presenting to the [facility] ED complaining of increasing pain and swelling right buttocks. Patient had been recently hospitalized for acute management of polysubstance abuse with discharge 05/20/18. The painful swelling in the right buttocks has enlarged and become more painful since his admission. Past medical history is notable for congestive heart failure, diabetes mellitus , polysubstance abuse including methamphetamines, opiates, cocaine, THC, benzodiazepine, and alcohol. The patient describes sensation of drug abuse several years ago but alcohol abuse persists. Surgical history: Incision and drainage abscess right wrist Allergies: Amoxicillin, penicillin, quetiapine, chlordiazepoxide Medications: Atenolol 25 mg by mouth daily Buprenorphine/naloxone 2 mg/0.5 mg 1 sublingually twice a day Gabapentin 200 mg by mouth 3 times a day Lisinopril 5 mg by mouth daily Metformin thousand milligrams by mouth twice a day with meals Mirtazapine 7.5 mg by mouth daily at bedtime Amlodipine 10 mg by mouth daily Hydroxyzine 25 mg by mouth 3 times a day as needed Social history: Patient continues to smoke admitting to 1 pack daily for approximately 15 years; alcohol abuse persists. No recent drug usage Physical examination: Obese age-appropriate male resting comfortably in his hospital bed. The patient is afebrile, currently 98.9, pulse 82, respirations 17, blood pressure 144/82. SPO2 on room air ranging 94-98% Skin: Warm, no obvious jaundice; multiple cutaneous tattoos around Lungs: Clear bilaterally Cardiac: Regular rate, no appreciable murmurs Abdomen: obese, soft; nontender. Active bowel sent Buttocks: 3 cm area of induration and acute tenderness right buttocks. CT of the pelvis with focus on this area reviewed with [place] [facility]. Findings include degenerative changes involving the lumbar spine, bilateral hips and sacral alley iliac joints. Grade 2 anterolisthesis L5 on S1; bilateral L5 pars defects; moderate subcutaneous inflammation right perineum/ buttocks without discrete abscess. It appears that since the CT was completed the inflammation has organized and increased in size and symptoms. Extremities: No obvious clubbing, cyanosis, or edema. Impression: Increasing pain, swelling right buttocks likely developing abscess Plan: Incision and drainage in a.m. under general anesthesia. This was discussed with the patient. Risks include hemorrhage, infection, failure to heal, recurrent abscess, and injury to surrounding areas with numbness or paresthesias. The patient expressed understanding. Surgical consent obtained. Past Med Surg Social Fam HX - Past Medical History Medical history: diabetes, hypertension Additional medical history: Cellulitis Psychiatric history: depression - Past Surgical History Surgical History: no surgical history Additional surgical history: n/a - Social History Smoking Status: Current every day smoker Packs per day: 1 Smokeless Tobacco Status: No Alcohol use: heavy, recent Drug use: opiates, marijuana, IV Drug Use, prescription drug abuse - Family History Father Adopted: [place]: Karan Adams Age: 40 Family Member Ethnicity: Non- Living Status: Age at : 40 Cause of : Car accident Hx Family Cardiac Disorders: Yes ([place] in 50s) Mother Name: Denise Adams Age: 56 Family Member Ethnicity: Non- Living Status: Age at : 56 Cause of : Cancer Hx Family Cardiac Disorders: Yes ([place] in 50s) Hx Family Cancer: Yes (Cancer) Hx Family Endocrine Disorder: Yes (Diabetes) Medications and Allergies Atenolol [Tenormin] 25 mg PO DAILY 05/18/18 [History] Gabapentin [Neurontin] 100 mg PO TID 05/18/18 [History] Lisinopril [Zestril] 5 mg PO DAILY 05/18/18 [History] Metformin HCl [Glucophage] 1,000 mg PO BIDWM 05/18/18 [History] Mirtazapine 7.5 mg PO HS 05/18/18 [History] amLODIPine [Norvasc] 10 mg PO DAILY 05/18/18 [History] hydrOXYzine pamoate [Hydroxyzine Pamoate] 25 mg PO TID PRN 05/18/18 [History] 3 Allergy/AdvReac Type Severity Reaction Status Date / Time Amoxicillin Allergy Hives Verified 05/15/18 13:10 Penicillins Allergy Hives Verified 05/15/18 13:10 quetiapine [From Seroquel] Allergy Hives Verified 05/15/18 13:10 chlordiazepoxide AdvReac Gastrointestinal Verified 05/15/18 13:10 [From Librium] Upset Review of Systems All systems PM: The remainder of the systems were reviewed and are negative General Surgery Exam Initial Vital Signs Temp Pulse Resp BP Pulse Ox 98.1 F 102 22 160/84 95 05/22/18 11:40 05/22/18 11:40 05/22/18 11:40 05/22/18 11:40 05/22/18 11:40 Exam Initial Vital Signs Temp Pulse Resp BP Pulse Ox 98.1 F 102 22 160/84 95 05/22/18 11:40 05/22/18 11:40 05/22/18 11:40 05/22/18 11:40 05/22/18 11:40 Results - Labs 05/23/18 01:03 05/23/18 03:50 Abnormal lab results Sodium 135 mEq/L (136-145) L 05/23/18 03:50 Creatinine 0.64 mg/dL (0.70-1.30) L 05/23/18 03:50 Glucose 119 mg/dL (70-105) H 05/23/18 03:50 POC Glucose 198 mg/dL (70-99) H 05/23/18 19:53 Direct Bilirubin 0.3 mg/dL (0.0-0.2) H 05/22/18 12:34 AST 83 Units/L (13-39) H 05/23/18 03:50 ALT 158 Units/L (7-52) H 05/23/18 03:50 HDL Cholesterol 33 mg/dL (40-59) L 05/23/18 03:50 Ur Specific [place] 1.006 (1.010-1.025) L 05/22/18 12:43 U Benzodiazepines Scrn Positive ng/mL (Spxcym=843) H 05/22/18 21:10 U Marijuana (THC) Screen Positive ng/mL (Cutoff = 50) H 05/22/18 21:10 Ethyl Alcohol 37 mg/dL (Less than 10) H 05/22/18 12:34 Diabetes panel 05/23/18 Range/Units 03:50 Sodium 135 L (136-145) mEq/L Potassium 3.7 (3.5-5.1) mEq/L Chloride 104 (98-107) mEq/L Carbon Dioxide 25 (23-29) mEq/L BUN 10 (6-20) mg/dL Creatinine 0.64 L (0.70-1.30) mg/dL Glucose 119 H (70-105) mg/dL Calcium 8.6 (8.6-10.3) mg/dL AST 83 H (13-39) Units/L ALT 158 H (7-52) Units/L Alkaline Phosphatase 69 (34-104) Units/L Albumin 3.6 (3.5-5.7) g/dL Triglycerides 83 (< 150) mg/dL HDL Cholesterol 33 L (40-59) mg/dL Calcium panel 05/23/18 Range/Units 03:50 Calcium 8.6 (8.6-10.3) mg/dL Phosphorus 2.8 (2.7-4.5) mg/dL Albumin 3.6 (3.5-5.7) g/dL Pituitary panel 05/23/18 Range/Units 03:50 Sodium 135 L (136-145) mEq/L Potassium 3.7 (3.5-5.1) mEq/L Chloride 104 (98-107) mEq/L Carbon Dioxide 25 (23-29) mEq/L BUN 10 (6-20) mg/dL Creatinine 0.64 L (0.70-1.30) mg/dL Glucose 119 H (70-105) mg/dL Calcium 8.6 (8.6-10.3) mg/dL Adrenal panel 05/23/18 Range/Units 03:50 Sodium 135 L (136-145) mEq/L Potassium 3.7 (3.5-5.1) mEq/L Chloride 104 (98-107) mEq/L Carbon Dioxide 25 (23-29) mEq/L BUN 10 (6-20) mg/dL Creatinine 0.64 L (0.70-1.30) mg/dL Glucose 119 H (70-105) mg/dL Calcium 8.6 (8.6-10.3) mg/dL Total Bilirubin 0.6 (0.3-1.0) mg/dL AST 83 H (13-39) Units/L ALT 158 H (7-52) Units/L Alkaline Phosphatase 69 (34-104) Units/L Albumin 3.6 (3.5-5.7) g/dL All other labs normal. Consult Discharge Plan - Plan Referrals: NONE,PCP [Primary Care Provider] -
[2018-05-23] MEDS: Mirtazapine 15 MG TABLET PO SCH (21:19)
[2018-05-23] MEDS: OXYCODONE Oral CONC 10 MG/0.5 ML ORAL.SYG SL PRN (21:31)
[2018-05-24] MEDS: Insulin LISPRO 300 UNITS/3 ML VIAL SQ SCH ×5 (00:27→22:40)
[2018-05-24 00:44] LABS: Basophils # 0.1 K/mcL (0.0-0.2); Basophils % 0.6 %; Eosinophils # 0.3 K/mcL (0.0-0.6); Eosinophils % 3.5 %; Hematocrit 41.6 % (37.5-50.1); Hemoglobin 13.9 g/dL (12.9-16.9); Immature Granulocytes % 0.3 % (0-4); Lymphocytes # 1.8 K/mcL (0.6-4.6); Lymphocytes % 20.5 %; Mean Corpuscular HGB Conc 33.4 g/dL (31.6-35.5); Mean Corpuscular Hemoglobin 29.4 pg (28.0-33.3); Mean Corpuscular Volume 88.1 fL (83.0-100.0); Mean Platelet Volume 10.1 fL (9.4-12.4); Monocytes # 0.7 K/mcL (0.0-1.3); Monocytes % 8.2 %; Neutrophils # 5.9 K/mcL (1.6-8.9); Platelet Count 192 K/mcL (140-400); Red Blood Count 4.72 M/mcL (4.19-5.50); Red Cell Distribution Width 13.5 % (11.5-14.5); Segmented Neutrophils % 66.9 %
[2018-05-24 00:55] LABS: BUN/Creatinine Ratio 17 (6-26); Blood Urea Nitrogen 12 mg/dL (6-20); Calcium 8.8 mg/dL (8.6-10.3); Carbon Dioxide 27 mEq/L (23-29); Chloride 102 mEq/L (98-107); Glucose 168 mg/dL (70-105); Osmolality,Calculated 286 (280-300); Potassium 3.5 mEq/L (3.5-5.1); Sodium 136 mEq/L (136-145); eGFR For Non-African Americans > 60 (> 60)
[2018-05-24] MEDS: *HR* Heparin 5,000 UNIT/ML VIAL SQ SCH ×4 (01:22→22:36)
[2018-05-24] MEDS: *HR* LORazepam 2 MG/ML VIAL IVP PRN ×2 (03:11→19:35)
[2018-05-24] MEDS: Cefepime HCl 2,000 MG in Water for inj. (sterile) 20 ML 20 ML IVP SCH ×2 (05:35→19:19)
[2018-05-24] MEDS: MetroNIDAZOLE 500 MG/100 ML 500 MG/100 ML BAG IVPB SCH ×4 (05:36→22:18)
[2018-05-24] MEDS: OXYCODONE Oral CONC 10 MG/0.5 ML ORAL.SYG SL PRN (07:56)
[2018-05-24] MEDS ORDERED: Bupivacaine/EPI 1:200k 0.25%PF 10 ML VIAL INFILT ONE (09:12)
--- NOTE | 2018-05-24 09:18 | Anesthesia Evaluation PreOp ---
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 Anxiety/Depression) Other Medical History: Hepatic (Hep C+ [per 03/2018 Lab]), Diabetes Type II, Other (MO/BMI= 50, EtOH, Polysubstance abuse, DM,) Anesthesia History: No Prior Anesthetic Complications, Past Anesthesia (I&D RUE 03/2018) Alcohol Use: heavy (admits 12pk/beer daily upto 30 drinks), recent Drug use: opiates, marijuana, IV Drug Use (Admitted 03/2018 for RUE I&D with reported Heroin use immediately prior to that admission), prescription drug abuse Medications and Allergies Atenolol [Tenormin] 25 mg PO DAILY 05/18/18 [History] Gabapentin [Neurontin] 100 mg PO TID 05/18/18 [History] Lisinopril [Zestril] 5 mg PO DAILY 05/18/18 [History] Metformin HCl [Glucophage] 1,000 mg PO BIDWM 05/18/18 [History] Mirtazapine 7.5 mg PO HS 05/18/18 [History] amLODIPine [Norvasc] 10 mg PO DAILY 05/18/18 [History] hydrOXYzine pamoate [Hydroxyzine Pamoate] 25 mg PO TID PRN 05/18/18 [History] 3 Allergy/AdvReac Type Severity Reaction Status Date / Time Amoxicillin Allergy Hives Verified 05/15/18 13:10 Penicillins Allergy Hives Verified 05/15/18 13:10 quetiapine [From Seroquel] Allergy Hives Verified 05/15/18 13:10 chlordiazepoxide AdvReac Gastrointestinal Verified 05/15/18 13:10 [From Librium] Upset - Meds/Allergy Pre-op Review Medications Reviewed: Yes Allergies Reviewed: Yes Beta Blockers on Current Med List: No Anesthesia Results - Labs 05/24/18 00:23 05/24/18 00:23 Laboratory Results Laboratory Tests 03/15/18 03/19/18 03/20/18 17:25 14:53 01:00 PT INR APTT 33.0 Est Mean Plasma Glucose 148 Hemoglobin A1c 6.8 H Urine Opiates Screen Ur Barbiturates Screen Ur Phencyclidine Scrn Ur Amphetamines Screen U Benzodiazepines Scrn Urine Cocaine Screen U Marijuana (THC) Screen Ethyl Alcohol Hepatitis C Ab Screen Reactive H 05/15/18 05/22/18 05/22/18 14:04 12:34 21:10 PT 12.8 H INR 1.1 APTT Est Mean Plasma Glucose Hemoglobin A1c Urine Opiates Screen Negative Ur Barbiturates Screen Negative Ur Phencyclidine Scrn Negative Ur Amphetamines Screen Negative U Benzodiazepines Scrn Positive H Urine Cocaine Screen Negative U Marijuana (THC) Screen Positive H Ethyl Alcohol 37 H Hepatitis C Ab Screen Impressions Pelvis CT 05/22/18 12:09 IMPRESSION: 1. Right perineal cellulitis without evidence of a perirectal abscess. D/ / Andrea Connor MD / Andrea Connor MD Interpreting Provider: Andrea Connor MD - Imaging EKG: report reviewed (EKG dated 05/22/2018 - Sinus rhythm Borderline right axis deviation Electronically Signed On 05-23-2018 17:12:43 EDT by Chas Regan) Additional studies: ECHO 01/2018 EV/EV echocardiogram Impressions: LVEF 60%. Normal LV chamber size and function. Mild concentric left ventricular hypertrophy. Moderate left ventricular diastolic dysfunction. Mildly dilated right ventricle with normal function. No evidence of pulmonary hypertension. No significant valvular dysfunction. Left Ventricular Wall Motion: Rest Echo Findings All wall segments showed normal motion. Anesthesia Exam Vital Signs Temp Pulse Resp BP Pulse Ox 05/24/18 11:47 16 145/78 100 05/24/18 07:53 98.1 F 80 16 145/78 100 05/24/18 05:01 99.2 F 80 17 155/81 96 05/23/18 23:22 98.4 F 84 15 148/79 94 05/23/18 19:50 98.9 F 82 17 144/82 94 05/23/18 17:30 98.8 F 76 16 144/85 98 Intake and Output 05/23/18 05/24/18 05/24/18 23:59 07:59 15:59 Intake Total 120 / 120 Output Total 900 / 900 200 / 200 Balance -780 / -780 -200 / -200 Intake: IV Fluids 120 / 120 Maxipime 2,000 MG In Water for 20 / 20 inj. (sterile) 20 ML @ 300 mls/ hr IVP Q12HR [facility] Rx#:[id number] Flagyl Premix 500 MG/100 ML 500 100 / 100 mg In 100 ml @ 100 mls/hr IVPB Q8H [facility] Rx#:[id number] Output: Urine 900 / 900 200 / 200 Other: # Voids 1 1 Blood Glucose* 187 122 Height: 5'10# Weight: 345# BMI = 50 - HEENT Pupil (Motor): Pupils equal, EOMI Mallampati: III Teeth: Poor dentition Oral Opening: Greater than 3 - FABRIC WORKER LOC: Oriented FABRIC WORKER Motor: Normal RUE, Normal LUE, Normal RLE, Normal LLE, Normal Face FABRIC WORKER Sensory: Normal: RUE, LUE, RLE, LLE, Face - Cardiac Rhythm: Regular Murmur: None - Pulmonary Breath Sounds: bilateral Clear Respiratory Effort: Symmetrical Anesthesia Assess/Plan ASA Score: 4 (MO/BMI = 46, RACHEL, HTN, Polysubstance abuse, EtOH, Smoker) Modified Mary Scale for Level of Consciousness: Cooperative, oriented, and tranquil Anesthetic Plan: General Monitoring Plan: Standard Monitors Recovery Plan: PACU Anes Supervising Prov Stmt: Pt seen/evaluated, R&B Discussed, questions answered and consent obtained. Isidro Zaldivar MD
[2018-05-24] MEDS ORDERED: Ondansetron 4 MG/2 ML VIAL IVP ONE (09:19)
[2018-05-24] MEDS ORDERED: *HR* Labetalol 20 MG/4 ML SYRINGE IVP PRN (09:19)
[2018-05-24] MEDS ORDERED: *HR* Meperidine 25 MG/ML SYRINGE IVP PRN (09:19)
[2018-05-24] MEDS ORDERED: *HR* Promethazine 25 MG/ML VIAL IVP PRN ×2 (09:19→13:59)
[2018-05-24] MEDS ORDERED: Dexamethasone 4 MG/ML VIAL IVP ONE (09:19)
[2018-05-24] MEDS ORDERED: *HR* FentaNYL (PF) 100 MCG/2 ML VIAL ONE (10:41)
[2018-05-24] MEDS ORDERED: *HR* Midazolam HCl 2 MG/2 ML VIAL ONE (10:41)
[2018-05-24] MEDS ORDERED: *HR* Propofol 200 MG/20 ML VIAL IVP ONE (10:41)
[2018-05-24] MEDS ORDERED: *HR* Succinylcholine 200 MG/10 ML VIAL IVP ONE (10:43)
[2018-05-24] MEDS ORDERED: Ondansetron 4 MG/2 ML VIAL ONE (10:43)
[2018-05-24] MEDS ORDERED: Lidocaine -MPF 4% 5 ML AMPUL ONE (10:43)
[2018-05-24] MEDS ORDERED: Dexamethasone 4 MG/ML VIAL ONE (10:43)
[2018-05-24] MEDS ORDERED: Lidocaine -MPF 2% 2 ML VIAL ONE ×2 (10:43→12:35)
--- NOTE | 2018-05-24 11:03 | Internal Med Progress Note ---
<Andrew Dumont - Last Filed: 05/24/18 11:00> Hospitalist Progress Note - Encounter Date of Encounter: 05/24/18 Time of Encounter: 11:00 - Subjective Interval History: Patient was admitted 05/22 for sepsis secondary to cellulitis and alcohol withdrawal Patient seen and examined this morning, no acute events overnight Patient complained of headache and fatigue this morning, as well as continue pain in the gluteal region He denied chest pain or shortness of breath - Exam Vitals: Temp Pulse Resp BP Pulse Ox 98.1 F 80 16 145/78 100 05/24/18 07:53 05/24/18 07:53 05/24/18 07:53 05/24/18 07:53 05/24/18 07:53 Exam: Patient in no acute distress, alert and oriented 3 Cranial nerves II through XII intact Heart in regular rate and rhythm without murmur or gallop Lungs clear to auscultation without wheeze or rales or rhonchi Abdomen obese and soft and nontender Bilateral lower extremities nonedematous There is a scabbed lesion on the right inferior buttocks close to the gluteal cleft approximately 1 cm in diameter The area underneath is indurated but not fluctuant There is surrounding erythema that extends into the gluteal cleft and outside the scab several centimeters The area of erythema is highly tender to palpation - Assessment and Plan (1) Alcohol withdrawal Current Visit: Yes Status: Acute Assessment and Plan: CIWA protocol -pt has hx of chronic alcohol abuse -drinks at least a 12 pack a day, last drink day prior to admission Patient denies withdrawal symptoms today Plan: -neuro checks -head of bed elevated, aspiration precautions -CIWA protocol, lorazepam as per protocol (2) Hypertension Current Visit: Yes Status: Chronic Assessment and Plan: BP stable since admission Continue home norvasc and lisinopril (3) DVT prophylaxis Current Visit: Yes Status: Acute Assessment and Plan: heparin sq (4) DM2 (diabetes mellitus, type 2) Current Visit: Yes Status: Chronic Assessment and Plan: hold home medications glucose stable low dose sliding scale insulin and glucose checks (5) Hypokalemia Current Visit: Yes Status: Resolved Assessment and Plan: Potassium 3.5 continue to monitor (6) Hypophosphatemia Current Visit: Yes Status: Acute Assessment and Plan: last P 2.8 continue to monitor (7) Morbid obesity Current Visit: Yes Status: Chronic Assessment and Plan: BMI 49.9 -lifestyle changes recommended (8) Polysubstance abuse Current Visit: Yes Status: Chronic Assessment and Plan: Has hx of IVDU -denies active drug abuse, other than a percocet prior to admission and marijuana occasionally -social work consulted (9) Sepsis Current Visit: Yes Status: Acute Assessment and Plan: Sepsis criteria based off of WBC 12.6, HR 102, RR 22 on admission Patient's white count, heart rate, respiratory rate all now within normal limits CT abd and pelvis - right perineal cellulitis w/o evidence of perirectal abscess Plan: -Day 3 Vancomycin, Cefepime, Flagyl -blood cultures pending -Surgery consulted and taking patient for I&D today -continue to monitor - Time Spent with Patient Total time spent is greater than 50% in coordination of care (as documented) at patient's floor/unit and/or counseling patient: Internal Medicine: Result - Labs CBC & Chem 7: 05/24/18 00:23 05/24/18 00:23 Labs: Short CBC 05/24/18 Range/Units 00:23 WBC 8.9 (4.3-11.1) K/mcL Hgb 13.9 (12.9-16.9) g/dL Hct 41.6 (37.5-50.1) % Plt Count 192 (140-400) K/mcL Neutrophils # 5.9 (1.6-8.9) K/mcL BMP 05/24/18 00:23 Sodium 136 Potassium 3.5 Chloride 102 Carbon Dioxide 27 BUN 12 Creatinine 0.72 Glucose 168 H Calcium 8.8 Consult Discharge Plan - Plan Referrals: NONE,PCP [Primary Care Provider] - <Willian Prince - Last Filed: 05/24/18 14:01> Hospitalist Progress Note - Encounter Date of Encounter: 05/24/18 - Exam Vitals: Temp Pulse Resp BP Pulse Ox 97.1 F L 67 16 136/74 93 05/24/18 13:48 05/24/18 13:48 05/24/18 13:48 05/24/18 13:48 05/24/18 13:48 - Assessment and Plan (1) Alcohol withdrawal Current Visit: Yes Status: Acute (2) Hypertension Current Visit: Yes Status: Chronic (3) DVT prophylaxis Current Visit: Yes Status: Acute (4) DM2 (diabetes mellitus, type 2) Current Visit: Yes Status: Chronic (5) Hypokalemia Current Visit: Yes Status: Resolved (6) Hypophosphatemia Current Visit: Yes Status: Acute (7) Morbid obesity Current Visit: Yes Status: Chronic (8) Polysubstance abuse Current Visit: Yes Status: Chronic (9) Sepsis Current Visit: Yes Status: Acute - Time Spent with Patient Total time spent is greater than 50% in coordination of care (as documented) at patient's floor/unit and/or counseling patient: Internal Medicine: Result - Labs CBC & Chem 7: 05/24/18 00:23 05/24/18 00:23 Labs: Short CBC 05/24/18 Range/Units 00:23 WBC 8.9 (4.3-11.1) K/mcL Hgb 13.9 (12.9-16.9) g/dL Hct 41.6 (37.5-50.1) % Plt Count 192 (140-400) K/mcL Neutrophils # 5.9 (1.6-8.9) K/mcL BMP 05/24/18 00:23 Sodium 136 Potassium 3.5 Chloride 102 Carbon Dioxide 27 BUN 12 Creatinine 0.72 Glucose 168 H Calcium 8.8 - Attending Attestation I examined this patient and my medical decision-making was reviewed with the Resident Physician. I agree with the documented findings, disposition and treatment plan as described except to the extent set forth below. <Andrew Dumont - Last Filed: 05/24/18 11:00> (1) Alcohol withdrawal Qualifiers: Complication of substance-induced condition: with unspecified complication Qualified Code(s): F10.239 - Alcohol dependence with withdrawal, unspecified (2) Hypertension Qualifiers: Hypertension type: essential hypertension Qualified Code(s): I10 - Essential (primary) hypertension (4) DM2 (diabetes mellitus, type 2) Qualifiers: Diabetes mellitus rn long term care insulin use: without snf use Diabetes mellitus complication status: without complication Qualified Code(s): E11.9 - Type 2 diabetes mellitus without complications (9) Sepsis Qualifiers: Sepsis type: sepsis due to unspecified organism Qualified Code(s): A41.9 - Sepsis, unspecified organism <Willian Prince - Last Filed: 05/24/18 14:01> (1) Alcohol withdrawal Qualifiers: Complication of substance-induced condition: with unspecified complication Qualified Code(s): F10.239 - Alcohol dependence with withdrawal, unspecified (2) Hypertension Qualifiers: Hypertension type: essential hypertension Qualified Code(s): I10 - Essential (primary) hypertension (4) DM2 (diabetes mellitus, type 2) Qualifiers: Diabetes mellitus snf insulin use: without rn long term care use Diabetes mellitus complication status: without complication Qualified Code(s): E11.9 - Type 2 diabetes mellitus without complications (9) Sepsis Qualifiers: Sepsis type: sepsis due to unspecified organism Qualified Code(s): A41.9 - Sepsis, unspecified organism
[2018-05-24] MEDS ORDERED: Ipratropium/Albuterol Neb 3 ML ONE (11:38)
[2018-05-24] MEDS ORDERED: KETAMINE HCL 50 MG/ML SYRINGE IV ONE (11:47)
[2018-05-24] MEDS ORDERED: Acetaminophen IV 1,000 MG/100 ML INFUS..BTL ONE (11:55)
[2018-05-24] MEDS ORDERED: Famotidine 20 MG/2 ML VIAL ONE (11:55)
[2018-05-24] MEDS ORDERED: CloNIDine Patch 0.1 MG PATCH (WEEKLY) ONE (11:55)
[2018-05-24] MEDS ORDERED: Pregabalin 75 MG CAPSULE ONE (11:55)
[2018-05-24] MEDS ORDERED: Ketorolac 30 MG/ML VIAL ONE (12:55)
--- NOTE | 2018-05-24 12:59 | Operative Note ---
Date of procedure: 05/24/18 Pre-op diagnosis: Abscess right buttocks Post-op diagnosis: same Procedure: Incision and drainage abscess right buttocks Implants: None Complications: None apparent Anesthesia: GETA Local Anesthetics: 0.25% Sensorcaine HCL with Epinephrine 1:200,000 SubQ (cc) ( 10 mL) Surgeon: Chung Mendoza Was there an equal opportunity assistant present: No Estimated blood loss (cc): 5 IV fluids (cc): 500 Specimen: aerobic and anaerobic cultures Condition: stable Disposition: PACU Procedure in Detail: The patient was brought to the operating room where he was placed supine on the procedure table. The patient was identified as to person, procedure, and laterality. The accuracy of this information was confirmed by the patient and procedure team. The patient was intubated and anesthetized under the supervision of Dr. Zonia Dunne. Once the airway was secured, the patient was placed in high lithotomy using yellowfin stirrups. The abscess right buttocks was readily apparent and had been previously marked. This area was prepped and draped in usual sterile fashion. Approximately 10 mL of 0.25% bupivacaine with 1-200,000 units epinephrine was infiltrated into the surrounding tissue. The skin was incised over the point of maximal swelling. The incision was extended into the subcutaneous tissue. A small collection of pus was encountered. Aerobic and anaerobic cultures were obtained. The small abscess cavity was debrided and then irrigated with a liter of sterile saline using a PulsaVac Plus irrigation system. Was packed with quarter-inch iodoform gauze and covered with fluffy sterile gauze. The patient was taken to recovery in stable condition. Needle, sponge, and instrument counts were correct at the close of the case.
[2018-05-24] MEDS: *HR* HYDROmorphone (PF) 1 MG/ML SYRINGE IVP PRN ×2 (13:20→13:25)
--- NOTE | 2018-05-24 13:45 | Anesthesia Evaluation Post Op ---
Date of Encounter: 05/24/18 Time of Encounter: 13:44 - Vital Signs Vital Signs: vss - Lungs Lungs: Clear Ascult./Percussion - Airway Airway: Non-obstructed - Cardiovascular Baseline Rhythm - Mental Status Mental Status: Alert & Oriented, Answers Appropriately - Pain Pain Scale used: Mena-Doll (Faces) (no apparent distress) - Nausea Vomiting Nausea Vomiting: Not Present - Discharge PostOp Status: Transfer Patient to floor
[2018-05-24] MEDS ORDERED: Ringers Solution, Lactated 1,000 ML IVC SCH (13:59)
[2018-05-24] MEDS ORDERED: D5% in Water 1,000 ML IVC PRN (13:59)
[2018-05-24] MEDS ORDERED: *HR* LORazepam 2 MG/ML VIAL IVP PRN ×2 (13:59)
[2018-05-24] MEDS ORDERED: Dextrose Gel 15 GM/37.5 ML TUBE PO PRN (13:59)
[2018-05-24] MEDS ORDERED: *HR* Dextrose 50 % in Water (Syg) 50 ML SYRINGE IVP PRN (13:59)
[2018-05-24] MEDS ORDERED: Naloxone 0.4 MG/ML INJ IVP PRN (13:59)
[2018-05-24] MEDS: *HR* OxyCODONE Immed Rel 5 MG TABLET PO PRN (15:11)
[2018-05-24] MEDS: Gabapentin 100 MG CAPSULE PO SCH ×2 (15:13→19:34)
[2018-05-24] MEDS: Mirtazapine 15 MG TABLET PO SCH (19:34)
[2018-05-25] MEDS: *HR* OxyCODONE Immed Rel 5 MG TABLET PO PRN ×4 (01:19→22:17)
[2018-05-25 01:30] LABS: Basophils % 0.2 %; Hematocrit 41.5 % (37.5-50.1); Hemoglobin 14.2 g/dL (12.9-16.9); Immature Granulocytes % 0.6 % (0-4); Lymphocytes # 0.9 K/mcL (0.6-4.6); Mean Corpuscular HGB Conc 34.2 g/dL (31.6-35.5); Mean Corpuscular Hemoglobin 30.5 pg (28.0-33.3); Mean Corpuscular Volume 89.2 fL (83.0-100.0); Mean Platelet Volume 11.1 fL (9.4-12.4); Monocytes # 0.4 K/mcL (0.0-1.3); Monocytes % 4.4 %; Neutrophils # 8.4 K/mcL (1.6-8.9); Nucleated Red Blood Cells 0.3 /100 WBC (0); Platelet Count 221 K/mcL (140-400); Red Blood Count 4.65 M/mcL (4.19-5.50); Red Cell Distribution Width 13.4 % (11.5-14.5); Segmented Neutrophils % 85.8 %
[2018-05-25] MEDS: *HR* LORazepam 2 MG/ML VIAL IVP PRN ×3 (02:06→20:55)
[2018-05-25 03:51] LABS: BUN/Creatinine Ratio 20 (6-26); Blood Urea Nitrogen 20 mg/dL (6-20); Calcium 8.8 mg/dL (8.6-10.3); Carbon Dioxide 25 mEq/L (23-29); Chloride 101 mEq/L (98-107); Glucose 351 mg/dL (70-105); Osmolality,Calculated 295 (280-300); Potassium 3.9 mEq/L (3.5-5.1); Sodium 134 mEq/L (136-145); eGFR For Non-African Americans > 60 (> 60)
[2018-05-25] MEDS: MetroNIDAZOLE 500 MG/100 ML 500 MG/100 ML BAG IVPB SCH ×3 (05:42→22:18)
[2018-05-25] MEDS: Cefepime HCl 2,000 MG in Water for inj. (sterile) 20 ML 20 ML IVP SCH ×2 (05:42→18:45)
[2018-05-25] MEDS: *HR* Heparin 5,000 UNIT/ML VIAL SQ SCH ×3 (05:42→22:17)
[2018-05-25] MEDS: Insulin LISPRO 300 UNITS/3 ML VIAL SQ SCH ×4 (08:09→20:54)
[2018-05-25] MEDS: Vitamin B Complex/Vit C/Vit E 1 EACH TABLET PO SCH (08:10)
[2018-05-25] MEDS: amLODIPine 5 MG TABLET PO SCH (08:10)
[2018-05-25] MEDS: Gabapentin 100 MG CAPSULE PO SCH ×3 (08:10→20:54)
[2018-05-25] MEDS: Thiamine (B-1) 100 MG TABLET PO SCH (08:11)
[2018-05-25] MEDS: Nicotine 14 MG PATCH.TD24 TD SCH (08:11)
[2018-05-25] MEDS: Folic Acid 1 MG TABLET PO SCH (08:11)
--- NOTE | 2018-05-25 14:46 | Internal Med Progress Note ---
<Andrew Dumont - Last Filed: 05/25/18 16:54> Hospitalist Progress Note - Encounter Date of Encounter: 05/25/18 Time of Encounter: 14:42 - Subjective Interval History: Patient was admitted 05/22 for sepsis secondary to cellulitis and alcohol withdrawal Patient seen and examined this morning, no acute events overnight Patient has continued pain in the gluteal region but otherwise no acute complaints He denied chest pain or shortness of breath - Exam Vitals: Temp Pulse Resp BP Pulse Ox 98.6 F 88 20 157/83 95 05/25/18 14:33 05/25/18 14:33 05/25/18 14:33 05/25/18 14:33 05/25/18 14:33 Exam: Patient in no acute distress, alert and oriented 3 Cranial nerves II through XII intact Heart in regular rate and rhythm without murmur or gallop Lungs clear to auscultation without wheeze or rales or rhonchi Abdomen obese and soft and nontender Bilateral lower extremities nonedematous Bandage on gluteal region with slight bloody saturation, otherwise clean and dry - Assessment and Plan (1) Alcohol withdrawal Current Visit: Yes Status: Acute Assessment and Plan: CIWA protocol -pt has hx of chronic alcohol abuse -drinks at least a 12 pack a day, last drink day prior to admission Patient denies withdrawal symptoms today Plan: -neuro checks -head of bed elevated, aspiration precautions -CIWA protocol, lorazepam as per protocol, patient did require 1 dose lorazepam today (2) Hypertension Current Visit: Yes Status: Chronic Assessment and Plan: BP stable since admission Continue home norvasc and lisinopril (3) DVT prophylaxis Current Visit: Yes Status: Acute Assessment and Plan: heparin sq (4) DM2 (diabetes mellitus, type 2) Current Visit: Yes Status: Chronic Assessment and Plan: hold home medications glucose stable low dose sliding scale insulin and glucose checks (5) Hypokalemia Current Visit: Yes Status: Resolved Assessment and Plan: Potassium 3.9 continue to monitor (6) Hypophosphatemia Current Visit: Yes Status: Acute Assessment and Plan: last P 2.8 continue to monitor (7) Morbid obesity Current Visit: Yes Status: Chronic Assessment and Plan: BMI 49.9 -lifestyle changes recommended (8) Polysubstance abuse Current Visit: Yes Status: Chronic Assessment and Plan: Has hx of IVDU -denies active drug abuse, other than a percocet prior to admission and marijuana occasionally -social work consulted (9) Sepsis Current Visit: Yes Status: Acute Assessment and Plan: Sepsis criteria based off of WBC 12.6, HR 102, RR 22 on admission Patient's white count, heart rate, respiratory rate all now within normal limits CT abd and pelvis - right perineal cellulitis w/o evidence of perirectal abscess Surgery completed I&D yesterday without incident Abscess found, culture sent Plan: -Day 2 Vancomycin, Cefepime, Flagyl -blood and wound cultures pending -continue to monitor -potentially transition to oral antibiotics tomorrow and discharge - Time Spent with Patient Total time spent is greater than 50% in coordination of care (as documented) at patient's floor/unit and/or counseling patient: Internal Medicine: Result - Labs CBC & Chem 7: 05/25/18 00:57 05/25/18 03:20 Labs: Short CBC 05/25/18 Range/Units 00:57 WBC 9.7 (4.3-11.1) K/mcL Hgb 14.2 (12.9-16.9) g/dL Hct 41.5 (37.5-50.1) % Plt Count 221 (140-400) K/mcL Neutrophils # 8.4 (1.6-8.9) K/mcL BMP 05/25/18 03:20 Sodium 134 L Potassium 3.9 Chloride 101 Carbon Dioxide 25 BUN 20 Creatinine 1.00 Glucose 351 H Calcium 8.8 Consult Discharge Plan - Plan Referrals: NONE,PCP [Primary Care Provider] - <Willian Prince - Last Filed: 05/25/18 18:04> Hospitalist Progress Note - Encounter Date of Encounter: 05/25/18 - Exam Vitals: Temp Pulse Resp BP Pulse Ox 98.6 F 88 20 157/83 95 05/25/18 14:33 05/25/18 14:33 05/25/18 14:33 05/25/18 14:33 05/25/18 14:33 - Assessment and Plan (1) Alcohol withdrawal Current Visit: Yes Status: Acute (2) Hypertension Current Visit: Yes Status: Chronic (3) DVT prophylaxis Current Visit: Yes Status: Acute (4) DM2 (diabetes mellitus, type 2) Current Visit: Yes Status: Chronic (5) Hypokalemia Current Visit: Yes Status: Resolved (6) Hypophosphatemia Current Visit: Yes Status: Acute (7) Morbid obesity Current Visit: Yes Status: Chronic (8) Polysubstance abuse Current Visit: Yes Status: Chronic (9) Sepsis Current Visit: Yes Status: Acute - Time Spent with Patient Total time spent is greater than 50% in coordination of care (as documented) at patient's floor/unit and/or counseling patient: Internal Medicine: Result - Labs CBC & Chem 7: 05/25/18 00:57 05/25/18 03:20 Labs: Short CBC 05/25/18 Range/Units 00:57 WBC 9.7 (4.3-11.1) K/mcL Hgb 14.2 (12.9-16.9) g/dL Hct 41.5 (37.5-50.1) % Plt Count 221 (140-400) K/mcL Neutrophils # 8.4 (1.6-8.9) K/mcL BMP 05/25/18 03:20 Sodium 134 L Potassium 3.9 Chloride 101 Carbon Dioxide 25 BUN 20 Creatinine 1.00 Glucose 351 H Calcium 8.8 - Attending Attestation I examined this patient and my medical decision-making was reviewed with the Resident Physician. I agree with the documented findings, disposition and treatment plan as described except to the extent set forth below. 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 <Willian Prince - Last Filed: 05/25/18 18:04> (1) Alcohol withdrawal Qualifiers: Complication of substance-induced condition: with unspecified complication Qualified Code(s): F10.239 - Alcohol dependence with withdrawal, unspecified (2) Hypertension Qualifiers: Hypertension type: essential hypertension Qualified Code(s): I10 - Essential (primary) hypertension (4) DM2 (diabetes mellitus, type 2) 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
--- NOTE | 2018-05-25 20:10 | General Surgery Progress Note ---
Date of Encounter: 05/25/18 Time of Encounter: 20:06 Subjective Patient reports: still having pain Narrative: General Surgery - POD #1 Patient continues to complain of pain Wound appears clean; no recurrent purulence. Packing removed. Patient has remained afebrile and hemodynamically stable - temperature 98.5, pulse 73, respirations 18, blood pressure 170/96. SPO2 on room air 96% Laboratories: White count 9.7, hemoglobin 14.2, hematocrit 41.5. Electrolytes notable for sodium of 134, normal BUN, 20; creatinine 1.00 Preliminary Culture results- Staphylococcus aureus; sensitivities still pending Recommendations: Continue current IV antibiotics including anti-MRSA therapy until culture results known and more specific therapy can be administered Objective Vital Signs - Last 8 Hours Temp Pulse Resp BP Pulse Ox 05/25/18 19:53 98.5 F 73 18 170/96 96 05/25/18 14:33 98.6 F 88 20 157/83 95 Intake and Output 05/25/18 05/25/18 05/25/18 07:59 15:59 23:59 Intake Total 270 / 270 620 / 620 740 / 740 Output Total 750 / 750 540 / 540 Balance -480 / -480 620 / 620 200 / 200 Intake: IV Fluids 270 / 270 100 / 100 20 / 20 Maxipime 2,000 MG In Water for 20 20 20 / 20 inj. (sterile) 20 ML @ 300 mls/ hr IVP Q12HR [facility] Rx#:[id number] Flagyl Premix 500 MG/100 ML 500 100 / 100 mg In 100 ml @ 100 mls/hr IVPB Q8H [facility] Rx#:[id number] Vancocin 1,500 MG In 0.9 % 250 / 250 Sodium Chloride 250 ML @ 166.67 mls/hr IVPB Q12H [facility] Rx#: [id number] Oral 520 / 520 480 / 480 Other 240 / 240 Output: Urine 750 / 750 540 / 540 Other: Meal Lunch michele crackers Percent of Meal Consumed 100% 100% Stool Size Moderate Stool Consistency formed Stool Characteristics Normal for Patient Stool Color Brown # Voids 1 Blood Glucose* 245 290 292 - Labs 05/25/18 00:57 05/25/18 03:20 Diabetes panel 05/25/18 Range/Units 03:20 Sodium 134 L (136-145) mEq/L Potassium 3.9 (3.5-5.1) mEq/L Chloride 101 (98-107) mEq/L Carbon Dioxide 25 (23-29) mEq/L BUN 20 (6-20) mg/dL Creatinine 1.00 (0.70-1.30) mg/dL Glucose 351 H (70-105) mg/dL Calcium 8.8 (8.6-10.3) mg/dL Calcium panel 05/25/18 Range/Units 03:20 Calcium 8.8 (8.6-10.3) mg/dL Pituitary panel 05/25/18 Range/Units 03:20 Sodium 134 L (136-145) mEq/L Potassium 3.9 (3.5-5.1) mEq/L Chloride 101 (98-107) mEq/L Carbon Dioxide 25 (23-29) mEq/L BUN 20 (6-20) mg/dL Creatinine 1.00 (0.70-1.30) mg/dL Glucose 351 H (70-105) mg/dL Calcium 8.8 (8.6-10.3) mg/dL Adrenal panel 05/25/18 Range/Units 03:20 Sodium 134 L (136-145) mEq/L Potassium 3.9 (3.5-5.1) mEq/L Chloride 101 (98-107) mEq/L Carbon Dioxide 25 (23-29) mEq/L BUN 20 (6-20) mg/dL Creatinine 1.00 (0.70-1.30) mg/dL Glucose 351 H (70-105) mg/dL Calcium 8.8 (8.6-10.3) mg/dL Consult Discharge Plan - Plan Referrals: NONE,PCP [Primary Care Provider] -
[2018-05-25] MEDS: Mirtazapine 15 MG TABLET PO SCH (20:54)
[2018-05-26 02:52] LABS: Basophils % 0.5 %; Eosinophils % 0.3 %; Hemoglobin 12.7 g/dL (12.9-16.9); Immature Granulocytes % 0.5 % (0-4); Lymphocytes % 23.2 %; Mean Corpuscular HGB Conc 33.4 g/dL (31.6-35.5); Mean Corpuscular Volume 89.6 fL (83.0-100.0); Mean Platelet Volume 10.6 fL (9.4-12.4); Monocytes # 0.7 K/mcL (0.0-1.3); Monocytes % 8.4 %; Neutrophils # 5.9 K/mcL (1.6-8.9); Platelet Count 195 K/mcL (140-400); Red Blood Count 4.24 M/mcL (4.19-5.50); Red Cell Distribution Width 13.5 % (11.5-14.5); Segmented Neutrophils % 67.1 %
[2018-05-26 03:12] LABS: BUN/Creatinine Ratio 22 (6-26); Blood Urea Nitrogen 18 mg/dL (6-20); Calcium 8.5 mg/dL (8.6-10.3); Carbon Dioxide 30 mEq/L (23-29); Chloride 101 mEq/L (98-107); Glucose 353 mg/dL (70-105); Osmolality,Calculated 298 (280-300); Sodium 136 mEq/L (136-145); eGFR For Non-African Americans > 60 (> 60)
[2018-05-26] MEDS: *HR* LORazepam 2 MG/ML VIAL IVP PRN ×3 (03:47→15:49)
[2018-05-26] MEDS: *HR* OxyCODONE Immed Rel 5 MG TABLET PO PRN ×3 (04:17→16:36)
[2018-05-26] MEDS: Cefepime HCl 2,000 MG in Water for inj. (sterile) 20 ML 20 ML IVP SCH (05:41)
[2018-05-26] MEDS: MetroNIDAZOLE 500 MG/100 ML 500 MG/100 ML BAG IVPB SCH (05:41)
[2018-05-26] MEDS: *HR* Heparin 5,000 UNIT/ML VIAL SQ SCH ×3 (05:41→20:54)
[2018-05-26] MEDS ORDERED: Insulin DETEMIR 100 UNIT/ML X5UNITS SQ SCH (08:34)
[2018-05-26] MEDS: Insulin LISPRO 300 UNITS/3 ML VIAL SQ SCH ×4 (08:40→22:20)
[2018-05-26] MEDS: Vitamin B Complex/Vit C/Vit E 1 EACH TABLET PO SCH (09:13)
[2018-05-26] MEDS: amLODIPine 5 MG TABLET PO SCH (09:13)
[2018-05-26] MEDS: Folic Acid 1 MG TABLET PO SCH (09:14)
[2018-05-26] MEDS: Gabapentin 100 MG CAPSULE PO SCH ×3 (09:14→20:44)
[2018-05-26] MEDS: Nicotine 14 MG PATCH.TD24 TD SCH (09:14)
[2018-05-26] MEDS: Thiamine (B-1) 100 MG TABLET PO SCH (09:14)
[2018-05-26] MEDS ORDERED: Aminoglycoside Consult 1 EACH MC ONE (09:41)
--- NOTE | 2018-05-26 09:50 | Internal Med Progress Note ---
<Andrew Dumont - Last Filed: 05/26/18 16:53> Hospitalist Progress Note - Encounter Date of Encounter: 05/26/18 Time of Encounter: 09:43 - Subjective Interval History: Patient was admitted 05/22 for sepsis secondary to cellulitis and abscess and alcohol withdrawal I&D performed 05/24 Patient seen and examined this morning, no acute events overnight Patient has continued pain and drainage in the gluteal region but otherwise no acute complaints He states he is afraid to go home yet because he is homeless and will not be able to perform wound care He denied chest pain or shortness of breath - Exam Vitals: Temp Pulse Resp BP Pulse Ox 97.8 F 62 20 136/90 96 05/26/18 09:01 05/26/18 09:01 05/26/18 09:01 05/26/18 09:01 05/26/18 09:01 Exam: Patient in no acute distress, alert and oriented 3 Cranial nerves II through XII intact Heart in regular rate and rhythm without murmur or gallop Lungs clear to auscultation without wheeze or rales or rhonchi Abdomen obese and soft and nontender Bilateral lower extremities nonedematous Bandage on right gluteal region into the cleft with moderate serosanguinous saturation near the cleft, otherwise clean and dry - Assessment and Plan (1) Alcohol withdrawal Current Visit: Yes Status: Acute Assessment and Plan: CIWA protocol -pt has hx of chronic alcohol abuse -drinks at least a 12 pack a day, last drink day prior to admission Patient denies withdrawal symptoms today Plan: -neuro checks -head of bed elevated, aspiration precautions -CIWA protocol, lorazepam as per protocol, patient did require 1 dose lorazepam yesterday (2) Hypertension Current Visit: Yes Status: Chronic Assessment and Plan: BP stable since admission Continue home norvasc and lisinopril (3) DVT prophylaxis Current Visit: Yes Status: Acute Assessment and Plan: heparin sq (4) DM2 (diabetes mellitus, type 2) Current Visit: Yes Status: Chronic Assessment and Plan: hold home medications glucose increased since surgery will increase long acting insulin low dose sliding scale insulin and glucose checks (5) Hypokalemia Current Visit: Yes Status: Resolved Assessment and Plan: Potassium 4.0 continue to monitor (6) Hypophosphatemia Current Visit: Yes Status: Resolved Assessment and Plan: last P 2.8 continue to monitor (7) Morbid obesity Current Visit: Yes Status: Chronic Assessment and Plan: BMI 49.9 -lifestyle changes recommended (8) Polysubstance abuse Current Visit: Yes Status: Chronic Assessment and Plan: Has hx of IVDU -denies active drug abuse, other than a percocet prior to admission and marijuana occasionally -social work consulted (9) Sepsis Current Visit: Yes Status: Resolved Assessment and Plan: Sepsis criteria based off of WBC 12.6, HR 102, RR 22 on admission Patient's white count, heart rate, respiratory rate all now within normal limits CT abd and pelvis - right perineal cellulitis w/o evidence of perirectal abscess Surgery completed I&D 05/24 without incident Abscess found, culture sent, positive for MRSA with multiple sensitivities Plan: -Day 3 Vancomycin, Cefepime, Flagyl, all stopped -Doxycycline started -blood cultures pending -continue to monitor -Surgery recommending further wound irrigation -Discuss discharge plan with social media director for wound management since patient is homeless - Time Spent with Patient Total time spent is greater than 50% in coordination of care (as documented) at patient's floor/unit and/or counseling patient: Internal Medicine: Result - Labs CBC & Chem 7: 05/26/18 01:52 05/26/18 01:52 Labs: Short CBC 05/26/18 Range/Units 01:52 WBC 8.8 (4.3-11.1) K/mcL Hgb 12.7 L D (12.9-16.9) g/dL Hct 38.0 (37.5-50.1) % Plt Count 195 (140-400) K/mcL Neutrophils # 5.9 (1.6-8.9) K/mcL BMP 05/26/18 01:52 Sodium 136 Potassium 4.0 Chloride 101 Carbon Dioxide 30 H BUN 18 Creatinine 0.82 Glucose 353 H Calcium 8.5 L Consult Discharge Plan - Plan Referrals: NONE,PCP [Primary Care Provider] - <Dia Lozano - Last Filed: 05/26/18 17:02> Hospitalist Progress Note - Encounter Date of Encounter: 05/26/18 - Exam Vitals: Temp Pulse Resp BP Pulse Ox 97.8 F 62 20 136/90 96 05/26/18 09:01 05/26/18 09:01 05/26/18 09:01 05/26/18 09:01 05/26/18 09:01 - Assessment and Plan (1) Alcohol withdrawal Current Visit: Yes Status: Acute (2) Hypertension Current Visit: Yes Status: Chronic (3) DVT prophylaxis Current Visit: Yes Status: Acute (4) DM2 (diabetes mellitus, type 2) Current Visit: Yes Status: Chronic (5) Hypokalemia Current Visit: Yes Status: Resolved (6) Hypophosphatemia Current Visit: Yes Status: Resolved (7) Morbid obesity Current Visit: Yes Status: Chronic (8) Polysubstance abuse Current Visit: Yes Status: Chronic (9) Sepsis Current Visit: Yes Status: Resolved - Time Spent with Patient Total time spent is greater than 50% in coordination of care (as documented) at patient's floor/unit and/or counseling patient: Internal Medicine: Result - Labs CBC & Chem 7: 05/26/18 01:52 05/26/18 01:52 Labs: Short CBC 05/26/18 Range/Units 01:52 WBC 8.8 (4.3-11.1) K/mcL Hgb 12.7 L D (12.9-16.9) g/dL Hct 38.0 (37.5-50.1) % Plt Count 195 (140-400) K/mcL Neutrophils # 5.9 (1.6-8.9) K/mcL BMP 05/26/18 01:52 Sodium 136 Potassium 4.0 Chloride 101 Carbon Dioxide 30 H BUN 18 Creatinine 0.82 Glucose 353 H Calcium 8.5 L - Attending Attestation I examined this patient and my medical decision-making was reviewed with the Resident Physician Dr. Dumont. I agree with the documented findings, disposition and treatment plan as described except to the extent set forth below. Mr. Adams is a 48 y/o M admitted here with Right gluteal abscess, had an I & D done by surgery. He was started on empirical abx Cefepime and Vancomycin. His wound cx growing MRSA now. Pt denied any CP / SOB. Gen: A, A< O x 3 Chest: Diminished BS bl Skin: open wound over Rt gluteal region with mild purulent discharge A/P 1. Acute Rt gluteal abscess s/p I & D Wound cx - MRSA Switched to PO Doxy <Andrew Dumont - Last Filed: 05/26/18 16:53> (1) Alcohol withdrawal Qualifiers: Complication of substance-induced condition: with unspecified complication Qualified Code(s): F10.239 - Alcohol dependence with withdrawal, unspecified (2) Hypertension Qualifiers: Hypertension type: essential hypertension Qualified Code(s): I10 - Essential (primary) hypertension (4) DM2 (diabetes mellitus, type 2) Qualifiers: Diabetes mellitus marine oil terminal superintendent insulin use: without detention use Diabetes mellitus complication status: without complication Qualified Code(s): E11.9 - Type 2 diabetes mellitus without complications (9) Sepsis Qualifiers: Sepsis type: methicillin resistant Staphylococcus aureus Qualified Code(s): A41.02 - Sepsis due to Methicillin resistant Staphylococcus aureus <Dia Lozano - Last Filed: 05/26/18 17:02> (1) Alcohol withdrawal Qualifiers: Complication of substance-induced condition: with unspecified complication Qualified Code(s): F10.239 - Alcohol dependence with withdrawal, unspecified (2) Hypertension Qualifiers: Hypertension type: essential hypertension Qualified Code(s): I10 - Essential (primary) hypertension (4) DM2 (diabetes mellitus, type 2) Qualifiers: Diabetes mellitus marine oil terminal superintendent insulin use: without detention use Diabetes mellitus complication status: without complication Qualified Code(s): E11.9 - Type 2 diabetes mellitus without complications (9) Sepsis Qualifiers: Sepsis type: methicillin resistant Staphylococcus aureus Qualified Code(s): A41.02 - Sepsis due to Methicillin resistant Staphylococcus aureus
[2018-05-26] MEDS ORDERED: Sulfamethoxazole/Trimeth DS 1 EACH TABLET PO SCH ×2 (12:00→21:00)
--- NOTE | 2018-05-26 15:10 | General Surgery Progress Note ---
Date of Encounter: 05/26/18 Time of Encounter: 15:07 Subjective Patient reports: still having pain Narrative: General Surgery - POD #2 Patient continues to complain of pain at the incision site. The wound is clean with no necrosis or further purulent drainage The patient remains afebrile, hemodynamically stable; pulse 62, respirations 16-20, blood pressure 136/90 The erythema, edema, and induration right buttocks has improved following incision and drainage of the right buttock Operative Cultures: MRSA Laboratories: White count 8.8, differential within normal limits; hemoglobin 12.7 with hematocrit 38.0. Electrolytes, BUN, creatinine within an acceptable range. Impression: Right buttock abscess secondary to MRSA Status post incision and drainage, postoperative day 2 Acceptable postoperative status Plan: Begin wound irrigations Objective Vital Signs - Last 8 Hours Temp Pulse Resp BP Pulse Ox 05/26/18 09:01 97.8 F 62 20 136/90 96 Intake and Output 05/25/18 05/26/18 05/26/18 23:59 07:59 15:59 Intake Total 1090 / 1090 830 / 830 Output Total 540 / 540 500 / 500 Balance 550 / 550 -500 / -500 830 / 830 Intake: IV Fluids 370 / 370 350 / 350 Maxipime 2,000 MG In Water for 20 / 20 inj. (sterile) 20 ML @ 300 mls/ hr IVP Q12HR [facility] Rx#:[id number] Flagyl Premix 500 MG/100 ML 500 100 / 100 100 / 100 mg In 100 ml @ 100 mls/hr IVPB Q8H [facility] Rx#:[id number] Vancocin 1,500 MG In 0.9 % 250 / 250 250 / 250 Sodium Chloride 250 ML @ 166.67 mls/hr IVPB Q12H [facility] Rx#: [id number] Oral 480 / 480 480 / 480 Other 240 / 240 Output: Urine 540 / 540 500 / 500 Other: Meal michele crackers Lunch Percent of Meal Consumed 100% 100% Stool Size Moderate Stool Consistency formed Stool Characteristics Normal for Patient Stool Color Brown # Voids 2 # Bowel Movements 1 Weight 154.4 kg Blood Glucose* 292 213 Patient Weight 05/26/18 23:59 Weight 154.4 kg - Labs 05/26/18 01:52 05/26/18 01:52 Diabetes panel 05/26/18 Range/Units 01:52 Sodium 136 (136-145) mEq/L Potassium 4.0 (3.5-5.1) mEq/L Chloride 101 (98-107) mEq/L Carbon Dioxide 30 H (23-29) mEq/L BUN 18 (6-20) mg/dL Creatinine 0.82 (0.70-1.30) mg/dL Glucose 353 H (70-105) mg/dL Calcium 8.5 L (8.6-10.3) mg/dL Calcium panel 05/26/18 Range/Units 01:52 Calcium 8.5 L (8.6-10.3) mg/dL Pituitary panel 05/26/18 Range/Units 01:52 Sodium 136 (136-145) mEq/L Potassium 4.0 (3.5-5.1) mEq/L Chloride 101 (98-107) mEq/L Carbon Dioxide 30 H (23-29) mEq/L BUN 18 (6-20) mg/dL Creatinine 0.82 (0.70-1.30) mg/dL Glucose 353 H (70-105) mg/dL Calcium 8.5 L (8.6-10.3) mg/dL Adrenal panel 05/26/18 Range/Units 01:52 Sodium 136 (136-145) mEq/L Potassium 4.0 (3.5-5.1) mEq/L Chloride 101 (98-107) mEq/L Carbon Dioxide 30 H (23-29) mEq/L BUN 18 (6-20) mg/dL Creatinine 0.82 (0.70-1.30) mg/dL Glucose 353 H (70-105) mg/dL Calcium 8.5 L (8.6-10.3) mg/dL Consult Discharge Plan - Plan Referrals: NONE,PCP [Primary Care Provider] -
[2018-05-26] MEDS: Mirtazapine 15 MG TABLET PO SCH (20:44)
[2018-05-26] MEDS: traMADol 50 MG TABLET PO PRN (20:44)
[2018-05-26] MEDS: Doxycycline 100 MG CAPSULE PO SCH (20:44)
[2018-05-26] MEDS: Insulin DETEMIR 100 UNIT/ML X5UNITS SQ SCH (22:20)
[2018-05-27 01:43] LABS: Basophils # 0.1 K/mcL (0.0-0.2); Basophils % 1.1 %; Eosinophils # 0.2 K/mcL (0.0-0.6); Hemoglobin 13.8 g/dL (12.9-16.9); Immature Granulocytes % 0.6 % (0-4); Lymphocytes # 2.4 K/mcL (0.6-4.6); Lymphocytes % 30.6 %; Mean Corpuscular HGB Conc 33.7 g/dL (31.6-35.5); Mean Corpuscular Hemoglobin 30.2 pg (28.0-33.3); Mean Corpuscular Volume 89.7 fL (83.0-100.0); Mean Platelet Volume 10.4 fL (9.4-12.4); Monocytes # 0.8 K/mcL (0.0-1.3); Neutrophils # 4.4 K/mcL (1.6-8.9); Platelet Count 211 K/mcL (140-400); Red Blood Count 4.57 M/mcL (4.19-5.50); Red Cell Distribution Width 13.6 % (11.5-14.5); Segmented Neutrophils % 55.7 %
[2018-05-27 02:09] LABS: BUN/Creatinine Ratio 18 (6-26); Blood Urea Nitrogen 16 mg/dL (6-20); Calcium 8.9 mg/dL (8.6-10.3); Carbon Dioxide 33 mEq/L (23-29); Chloride 98 mEq/L (98-107); Glucose 182 mg/dL (70-105); Osmolality,Calculated 288 (280-300); Potassium 3.5 mEq/L (3.5-5.1); Sodium 136 mEq/L (136-145); eGFR For Non-African Americans > 60 (> 60)
[2018-05-27] MEDS: *HR* LORazepam 2 MG/ML VIAL IVP PRN (02:57)
[2018-05-27] MEDS: *HR* Heparin 5,000 UNIT/ML VIAL SQ SCH ×3 (05:37→22:30)
[2018-05-27] MEDS: *HR* OxyCODONE Immed Rel 5 MG TABLET PO PRN ×4 (05:37→22:31)
[2018-05-27] MEDS: Insulin LISPRO 300 UNITS/3 ML VIAL SQ SCH ×4 (09:12→20:23)
[2018-05-27] MEDS: Doxycycline 100 MG CAPSULE PO SCH ×2 (09:16→20:17)
[2018-05-27] MEDS: amLODIPine 5 MG TABLET PO SCH (09:16)
[2018-05-27] MEDS: Gabapentin 100 MG CAPSULE PO SCH ×3 (09:16→20:18)
[2018-05-27] MEDS: Nicotine 14 MG PATCH.TD24 TD SCH (09:16)
[2018-05-27] MEDS: Vitamin B Complex/Vit C/Vit E 1 EACH TABLET PO SCH (09:16)
[2018-05-27] MEDS: Folic Acid 1 MG TABLET PO SCH (09:16)
[2018-05-27] MEDS: Thiamine (B-1) 100 MG TABLET PO SCH (09:16)
[2018-05-27] MEDS: Insulin DETEMIR 100 UNIT/ML X5UNITS SQ SCH ×2 (09:17→20:23)
[2018-05-27] MEDS: hydrOXYzine pamoate 25 MG CAPSULE PO PRN ×2 (10:55→20:18)
--- NOTE | 2018-05-27 11:39 | General Surgery Progress Note ---
Date of Encounter: 05/27/18 Time of Encounter: 11:25 Subjective Narrative: General Surgery - POD #3 Patient remains afebrile, hemodynamically stable - pulse 73, respirations 16 , blood pressure 129/84. SPO2 on room air 9496% Patient continues to complain of pain/burning at the incision site. The incision site is clean with healthy granulation tissue. No obvious purulence. Surrounding erythema and edema resolved Impression: Postoperative day #3, status post I&D right buttock abscess secondary to MRSA Acceptable improvement following incision and drainage and antibiotic therapy. Objective Vital Signs - Last 8 Hours Temp Pulse Resp BP Pulse Ox 05/27/18 09:59 98.2 F 73 16 129/84 96 05/27/18 06:38 98.1 F 68 16 127/78 94 05/27/18 03:51 97.8 F 72 17 121/71 92 Intake and Output 05/26/18 05/27/18 05/27/18 23:59 07:59 15:59 Other: Weight 165 kg Blood Glucose* 278 138 Patient Weight 05/27/18 23:59 Weight 165 kg - Labs 05/27/18 00:58 05/27/18 00:58 Diabetes panel 05/27/18 Range/Units 00:58 Sodium 136 (136-145) mEq/L Potassium 3.5 (3.5-5.1) mEq/L Chloride 98 (98-107) mEq/L Carbon Dioxide 33 H (23-29) mEq/L BUN 16 (6-20) mg/dL Creatinine 0.89 (0.70-1.30) mg/dL Glucose 182 H (70-105) mg/dL Calcium 8.9 (8.6-10.3) mg/dL Calcium panel 05/27/18 Range/Units 00:58 Calcium 8.9 (8.6-10.3) mg/dL Pituitary panel 05/27/18 Range/Units 00:58 Sodium 136 (136-145) mEq/L Potassium 3.5 (3.5-5.1) mEq/L Chloride 98 (98-107) mEq/L Carbon Dioxide 33 H (23-29) mEq/L BUN 16 (6-20) mg/dL Creatinine 0.89 (0.70-1.30) mg/dL Glucose 182 H (70-105) mg/dL Calcium 8.9 (8.6-10.3) mg/dL Adrenal panel 05/27/18 Range/Units 00:58 Sodium 136 (136-145) mEq/L Potassium 3.5 (3.5-5.1) mEq/L Chloride 98 (98-107) mEq/L Carbon Dioxide 33 H (23-29) mEq/L BUN 16 (6-20) mg/dL Creatinine 0.89 (0.70-1.30) mg/dL Glucose 182 H (70-105) mg/dL Calcium 8.9 (8.6-10.3) mg/dL Consult Discharge Plan - Plan Referrals: NONE,PCP [Primary Care Provider] -
[2018-05-27] MEDS: traMADol 50 MG TABLET PO PRN ×2 (14:03→20:23)
--- NOTE | 2018-05-27 15:39 | Internal Med Progress Note ---
<Andrew Dumont - Last Filed: 05/27/18 15:35> Hospitalist Progress Note - Encounter Date of Encounter: 05/27/18 Time of Encounter: 09:00 - Subjective Interval History: Patient was admitted 05/22 for sepsis secondary to cellulitis and abscess and alcohol withdrawal I&D performed 05/24 Patient seen and examined this morning, no acute events overnight Patient has continued pain in the gluteal region but otherwise no acute complaints He states he is afraid to leave yet because he is homeless and will not be able to perform wound care He denied chest pain or shortness of breath - Exam Vitals: Temp Pulse Resp BP Pulse Ox 98.5 F 78 16 128/79 96 05/27/18 15:08 05/27/18 15:08 05/27/18 15:08 05/27/18 15:08 05/27/18 15:08 Exam: Patient in no acute distress, alert and oriented 3 Cranial nerves II through XII intact Heart in regular rate and rhythm without murmur or gallop Lungs clear to auscultation without wheeze or rales or rhonchi Abdomen obese and soft and nontender Bilateral lower extremities nonedematous Bandage on right gluteal region into the cleft clean and dry - Assessment and Plan (1) Alcohol withdrawal Current Visit: Yes Status: Acute Assessment and Plan: CIWA protocol -pt has hx of chronic alcohol abuse -drinks at least a 12 pack a day, last drink day prior to admission Patient denies withdrawal symptoms today Plan: -neuro checks -head of bed elevated, aspiration precautions -CIWA protocol, lorazepam as per protocol (2) Hypertension Current Visit: Yes Status: Chronic Assessment and Plan: BP stable since admission Continue home norvasc and lisinopril (3) DM2 (diabetes mellitus, type 2) Current Visit: Yes Status: Chronic Assessment and Plan: hold home medications low dose sliding scale insulin and glucose checks glucose stable (4) Hypokalemia Current Visit: Yes Status: Resolved Assessment and Plan: Potassium 4.5 continue to monitor (5) Hypophosphatemia Current Visit: Yes Status: Resolved Assessment and Plan: last P 2.8 continue to monitor (6) Morbid obesity Current Visit: Yes Status: Chronic Assessment and Plan: BMI 49.9 -lifestyle changes recommended (7) Polysubstance abuse Current Visit: Yes Status: Chronic Assessment and Plan: Has hx of IVDU -denies active drug abuse, other than a percocet prior to admission and marijuana occasionally -social work consulted (8) DVT prophylaxis Current Visit: Yes Status: Acute Assessment and Plan: heparin sq (9) Sepsis Current Visit: Yes Status: Resolved Assessment and Plan: Sepsis criteria based off of WBC 12.6, HR 102, RR 22 on admission Patient's white count, heart rate, respiratory rate all now within normal limits CT abd and pelvis - right perineal cellulitis w/o evidence of perirectal abscess Surgery completed I&D 05/24 without incident Abscess found, culture sent, positive for MRSA with multiple sensitivities Plan: -Vancomycin, Cefepime, Flagyl, all stopped 05/25 after 3 days -Doxycycline started 05/26 according to culture and sensitivities, day 2 -blood cultures pending -continue to monitor -Surgery commented that wound is healing appropriately -rn support services and critical care nurse specialist still negotiating patient placement for discharge - Time Spent with Patient Total time spent is greater than 50% in coordination of care (as documented) at patient's floor/unit and/or counseling patient: Internal Medicine: Result - Labs CBC & Chem 7: 05/27/18 00:58 05/27/18 00:58 Labs: Short CBC 05/27/18 Range/Units 00:58 WBC 7.9 (4.3-11.1) K/mcL Hgb 13.8 (12.9-16.9) g/dL Hct 41.0 (37.5-50.1) % Plt Count 211 (140-400) K/mcL Neutrophils # 4.4 (1.6-8.9) K/mcL BMP 05/27/18 00:58 Sodium 136 Potassium 3.5 Chloride 98 Carbon Dioxide 33 H BUN 16 Creatinine 0.89 Glucose 182 H Calcium 8.9 Consult Discharge Plan - Plan Referrals: NONE,PCP [Primary Care Provider] - <Dia Lozano - Last Filed: 05/27/18 16:58> Hospitalist Progress Note - Encounter Date of Encounter: 05/27/18 - Exam Vitals: Temp Pulse Resp BP Pulse Ox 98.4 F 70 18 132/70 94 05/27/18 16:34 05/27/18 16:34 05/27/18 16:34 05/27/18 16:34 05/27/18 16:34 - Assessment and Plan (1) Alcohol withdrawal Current Visit: Yes Status: Acute (2) Hypertension Current Visit: Yes Status: Chronic (3) DVT prophylaxis Current Visit: Yes Status: Acute (4) DM2 (diabetes mellitus, type 2) Current Visit: Yes Status: Chronic (5) Hypokalemia Current Visit: Yes Status: Resolved (6) Hypophosphatemia Current Visit: Yes Status: Resolved (7) Morbid obesity Current Visit: Yes Status: Chronic (8) Polysubstance abuse Current Visit: Yes Status: Chronic (9) Sepsis Current Visit: Yes Status: Resolved - Time Spent with Patient Total time spent is greater than 50% in coordination of care (as documented) at patient's floor/unit and/or counseling patient: Internal Medicine: Result - Labs CBC & Chem 7: 05/27/18 00:58 05/27/18 00:58 Labs: Short CBC 05/27/18 Range/Units 00:58 WBC 7.9 (4.3-11.1) K/mcL Hgb 13.8 (12.9-16.9) g/dL Hct 41.0 (37.5-50.1) % Plt Count 211 (140-400) K/mcL Neutrophils # 4.4 (1.6-8.9) K/mcL BMP 05/27/18 00:58 Sodium 136 Potassium 3.5 Chloride 98 Carbon Dioxide 33 H BUN 16 Creatinine 0.89 Glucose 182 H Calcium 8.9 - Attending Attestation I examined this patient and my medical decision-making was reviewed with the Resident Physician Dr. Dumont. I agree with the documented findings, disposition and treatment plan as described except to the extent set forth below. Mr. Adams is a 48 y/o M admitted here with Right gluteal abscess, had an I & D done by surgery. He was started on empirical abx Cefepime and Vancomycin. His wound cx growing MRSA now. Pt denied any CP / SOB. Gen: A, A< O x 3 Chest: Diminished BS bl Skin: open wound over Rt gluteal region with mild purulent discharge A/P 1. Acute Rt gluteal abscess s/p I & D Wound cx - MRSA Switched to PO Doxy Wound care as per surgery recommendations <Andrew Dumont - Last Filed: 05/27/18 15:35> (1) Alcohol withdrawal Qualifiers: Complication of substance-induced condition: with unspecified complication Qualified Code(s): F10.239 - Alcohol dependence with withdrawal, unspecified (2) Hypertension Qualifiers: Hypertension type: essential hypertension Qualified Code(s): I10 - Essential (primary) hypertension (3) DM2 (diabetes mellitus, type 2) Qualifiers: Diabetes mellitus fern gatherer insulin use: without fern gatherer use Diabetes mellitus complication status: without complication Qualified Code(s): E11.9 - Type 2 diabetes mellitus without complications (9) Sepsis Qualifiers: Sepsis type: methicillin resistant Staphylococcus aureus Qualified Code(s): A41.02 - Sepsis due to Methicillin resistant Staphylococcus aureus <iDa Lozano - Last Filed: 05/27/18 16:58> (1) Alcohol withdrawal Qualifiers: Complication of substance-induced condition: with unspecified complication Qualified Code(s): F10.239 - Alcohol dependence with withdrawal, unspecified (2) Hypertension Qualifiers: Hypertension type: essential hypertension Qualified Code(s): I10 - Essential (primary) hypertension (4) DM2 (diabetes mellitus, type 2) Qualifiers: Diabetes mellitus fern gatherer insulin use: without fdc use Diabetes mellitus complication status: without complication Qualified Code(s): E11.9 - Type 2 diabetes mellitus without complications (9) Sepsis Qualifiers: Sepsis type: methicillin resistant Staphylococcus aureus Qualified Code(s): A41.02 - Sepsis due to Methicillin resistant Staphylococcus aureus
[2018-05-27] MEDS: Mirtazapine 15 MG TABLET PO SCH (20:18)
[2018-05-28 04:06] LABS: Basophils # 0.1 K/mcL (0.0-0.2); Basophils % 1.2 %; Eosinophils # 0.2 K/mcL (0.0-0.6); Eosinophils % 2.5 %; Hematocrit 40.9 % (37.5-50.1); Hemoglobin 13.7 g/dL (12.9-16.9); Immature Granulocytes % 1.1 % (0-4); Lymphocytes # 2.4 K/mcL (0.6-4.6); Lymphocytes % 28.7 %; Mean Corpuscular HGB Conc 33.5 g/dL (31.6-35.5); Mean Corpuscular Hemoglobin 28.8 pg (28.0-33.3); Mean Corpuscular Volume 86.1 fL (83.0-100.0); Mean Platelet Volume 10.2 fL (9.4-12.4); Monocytes # 0.7 K/mcL (0.0-1.3); Monocytes % 8.7 %; Neutrophils # 4.9 K/mcL (1.6-8.9); Platelet Count 235 K/mcL (140-400); Red Blood Count 4.75 M/mcL (4.19-5.50); Red Cell Distribution Width 13.4 % (11.5-14.5); Segmented Neutrophils % 57.8 %
[2018-05-28 04:27] LABS: BUN/Creatinine Ratio 20 (6-26); Blood Urea Nitrogen 16 mg/dL (6-20); Carbon Dioxide 32 mEq/L (23-29); Chloride 96 mEq/L (98-107); Glucose 204 mg/dL (70-105); Osmolality,Calculated 287 (280-300); Potassium 3.7 mEq/L (3.5-5.1); Sodium 135 mEq/L (136-145); eGFR For Non-African Americans > 60 (> 60)
[2018-05-28] MEDS: *HR* OxyCODONE Immed Rel 5 MG TABLET PO PRN ×3 (05:54→18:54)
[2018-05-28] MEDS: *HR* Heparin 5,000 UNIT/ML VIAL SQ SCH ×3 (05:56→22:10)
[2018-05-28] MEDS: Thiamine (B-1) 100 MG TABLET PO SCH (09:33)
[2018-05-28] MEDS: Folic Acid 1 MG TABLET PO SCH (09:33)
[2018-05-28] MEDS: amLODIPine 5 MG TABLET PO SCH (09:34)
[2018-05-28] MEDS: Gabapentin 100 MG CAPSULE PO SCH ×3 (09:34→22:06)
[2018-05-28] MEDS: Vitamin B Complex/Vit C/Vit E 1 EACH TABLET PO SCH (09:34)
[2018-05-28] MEDS: Nicotine 14 MG PATCH.TD24 TD SCH (09:35)
[2018-05-28] MEDS: Doxycycline 100 MG CAPSULE PO SCH ×2 (09:35→22:06)
[2018-05-28] MEDS: Insulin LISPRO 300 UNITS/3 ML VIAL SQ SCH ×4 (09:36→22:09)
[2018-05-28] MEDS: Insulin DETEMIR 100 UNIT/ML X5UNITS SQ SCH ×2 (09:45→22:08)
--- NOTE | 2018-05-28 13:27 | Internal Med Progress Note ---
<Andrew Dumont - Last Filed: 05/28/18 13:21> Hospitalist Progress Note - Encounter Date of Encounter: 05/28/18 Time of Encounter: 13:21 - Subjective Interval History: Patient was admitted 05/22 for sepsis secondary to cellulitis and abscess and alcohol withdrawal I&D performed 05/24 Patient seen and examined this morning, no acute events overnight Patient has continued pain in the gluteal region but otherwise no acute complaints He states he is afraid to leave yet because he is homeless and will not be able to perform wound care Social work has reached out to [facility] about transferring the patient, they have made a site visit and are deciding - Exam Vitals: Temp Pulse Resp BP Pulse Ox 98.7 F 89 16 149/83 96 05/28/18 09:58 05/28/18 09:58 05/28/18 09:58 05/28/18 09:58 05/28/18 09:58 Exam: Patient in no acute distress, alert and oriented 3 Cranial nerves II through XII intact Heart in regular rate and rhythm without murmur or gallop Lungs clear to auscultation without wheeze or rales or rhonchi Abdomen obese and soft and nontender Bilateral lower extremities nonedematous Bandage on right gluteal region into the cleft clean and dry - Assessment and Plan (1) Alcohol withdrawal Current Visit: Yes Status: Acute Assessment and Plan: CIWA protocol -pt has hx of chronic alcohol abuse -drinks at least a 12 pack a day, last drink day prior to admission Patient denies withdrawal symptoms today Plan: -neuro checks -head of bed elevated, aspiration precautions -CIWA protocol, lorazepam as per protocol (2) Hypertension Current Visit: Yes Status: Chronic Assessment and Plan: BP stable since admission Continue home norvasc and lisinopril (3) DM2 (diabetes mellitus, type 2) Current Visit: Yes Status: Chronic Assessment and Plan: hold home medications low dose sliding scale insulin and glucose checks glucose stable (4) Hypokalemia Current Visit: Yes Status: Resolved Assessment and Plan: Potassium 3.7 continue to monitor (5) Hypophosphatemia Current Visit: Yes Status: Resolved Assessment and Plan: last P 2.8 continue to monitor (6) Morbid obesity Current Visit: Yes Status: Chronic Assessment and Plan: BMI 49.9 -lifestyle changes recommended (7) Polysubstance abuse Current Visit: Yes Status: Chronic Assessment and Plan: Has hx of IVDU -denies active drug abuse, other than a percocet prior to admission and marijuana occasionally -social work consulted (8) DVT prophylaxis Current Visit: Yes Status: Acute Assessment and Plan: heparin sq (9) Sepsis Current Visit: Yes Status: Resolved Assessment and Plan: Sepsis criteria based off of WBC 12.6, HR 102, RR 22 on admission Patient's white count, heart rate, respiratory rate all now within normal limits CT abd and pelvis - right perineal cellulitis w/o evidence of perirectal abscess Surgery completed I&D 05/24 without incident Abscess found, culture sent, positive for MRSA with multiple sensitivities Plan: -Vancomycin, Cefepime, Flagyl, all stopped 05/25 after 3 days -Doxycycline started 05/26 according to culture and sensitivities, day 3 -blood cultures pending -continue to monitor -Surgery commented that wound is healing appropriately -tax services professional and director of managed care still negotiating patient placement for discharge - Time Spent with Patient Total time spent is greater than 50% in coordination of care (as documented) at patient's floor/unit and/or counseling patient: Internal Medicine: Result - Labs CBC & Chem 7: 05/28/18 03:45 05/28/18 03:45 Labs: Short CBC 05/28/18 Range/Units 03:45 WBC 8.5 (4.3-11.1) K/mcL Hgb 13.7 (12.9-16.9) g/dL Hct 40.9 (37.5-50.1) % Plt Count 235 (140-400) K/mcL Neutrophils # 4.9 (1.6-8.9) K/mcL BMP 05/28/18 03:45 Sodium 135 L Potassium 3.7 Chloride 96 L Carbon Dioxide 32 H BUN 16 Creatinine 0.82 Glucose 204 H Calcium 9.0 Consult Discharge Plan - Plan Referrals: NONE,PCP [Primary Care Provider] - <Dia Lozano - Last Filed: 05/28/18 15:34> Hospitalist Progress Note - Encounter Date of Encounter: 05/28/18 - Exam Vitals: Temp Pulse Resp BP Pulse Ox 98.7 F 89 16 149/83 96 05/28/18 09:58 05/28/18 09:58 05/28/18 09:58 05/28/18 09:58 05/28/18 09:58 - Assessment and Plan (1) Alcohol withdrawal Current Visit: Yes Status: Acute (2) Hypertension Current Visit: Yes Status: Chronic (3) DVT prophylaxis Current Visit: Yes Status: Acute (4) DM2 (diabetes mellitus, type 2) Current Visit: Yes Status: Chronic (5) Hypokalemia Current Visit: Yes Status: Resolved (6) Hypophosphatemia Current Visit: Yes Status: Resolved (7) Morbid obesity Current Visit: Yes Status: Chronic (8) Polysubstance abuse Current Visit: Yes Status: Chronic (9) Sepsis Current Visit: Yes Status: Resolved - Time Spent with Patient Total time spent is greater than 50% in coordination of care (as documented) at patient's floor/unit and/or counseling patient: Internal Medicine: Result - Labs CBC & Chem 7: 05/28/18 03:45 05/28/18 03:45 Labs: Short CBC 05/28/18 Range/Units 03:45 WBC 8.5 (4.3-11.1) K/mcL Hgb 13.7 (12.9-16.9) g/dL Hct 40.9 (37.5-50.1) % Plt Count 235 (140-400) K/mcL Neutrophils # 4.9 (1.6-8.9) K/mcL BMP 05/28/18 03:45 Sodium 135 L Potassium 3.7 Chloride 96 L Carbon Dioxide 32 H BUN 16 Creatinine 0.82 Glucose 204 H Calcium 9.0 - Attending Attestation I examined this patient and my medical decision-making was reviewed with the Resident Physician Dr. Dumont. I agree with the documented findings, disposition and treatment plan as described except to the extent set forth below. Mr. Adams is a 48 y/o M admitted here with Right gluteal abscess, had an I & D done by surgery. He was started on empirical abx Cefepime and Vancomycin. His wound cx growing MRSA now. Pt denied any CP / SOB. Gen: A, A< O x 3 Chest: Diminished BS bl Skin: open wound over Rt gluteal region with mild purulent discharge A/P 1. Acute Rt gluteal abscess s/p I & D Wound cx - MRSA Switched to PO Doxy - Required total 14 days course Wound care as per surgery recommendations Waiting for placement <Andrew Dumont - Last Filed: 05/28/18 13:21> (1) Alcohol withdrawal Qualifiers: Complication of substance-induced condition: with unspecified complication Qualified Code(s): F10.239 - Alcohol dependence with withdrawal, unspecified (2) Hypertension Qualifiers: Hypertension type: essential hypertension Qualified Code(s): I10 - Essential (primary) hypertension (3) DM2 (diabetes mellitus, type 2) Qualifiers: Diabetes mellitus residential insulin use: without oysterman use Diabetes mellitus complication status: without complication Qualified Code(s): E11.9 - Type 2 diabetes mellitus without complications (9) Sepsis Qualifiers: Sepsis type: methicillin resistant Staphylococcus aureus Qualified Code(s): A41.02 - Sepsis due to Methicillin resistant Staphylococcus aureus <Dia Lozano - Last Filed: 05/28/18 15:34> (1) Alcohol withdrawal Qualifiers: Complication of substance-induced condition: with unspecified complication Qualified Code(s): F10.239 - Alcohol dependence with withdrawal, unspecified (2) Hypertension Qualifiers: Hypertension type: essential hypertension Qualified Code(s): I10 - Essential (primary) hypertension (4) DM2 (diabetes mellitus, type 2) Qualifiers: Diabetes mellitus residential insulin use: without residential use Diabetes mellitus complication status: without complication Qualified Code(s): E11.9 - Type 2 diabetes mellitus without complications (9) Sepsis Qualifiers: Sepsis type: methicillin resistant Staphylococcus aureus Qualified Code(s): A41.02 - Sepsis due to Methicillin resistant Staphylococcus aureus
[2018-05-28] MEDS: Mirtazapine 15 MG TABLET PO SCH (22:07)
[2018-05-28] MEDS: traMADol 50 MG TABLET PO PRN (22:08)
[2018-05-29] MEDS: *HR* OxyCODONE Immed Rel 5 MG TABLET PO PRN ×4 (01:10→20:24)
[2018-05-29 01:53] LABS: Basophils # 0.1 K/mcL (0.0-0.2); Basophils % 1.1 %; Eosinophils # 0.2 K/mcL (0.0-0.6); Eosinophils % 2.7 %; Hematocrit 43.9 % (37.5-50.1); Hemoglobin 14.6 g/dL (12.9-16.9); Immature Granulocytes % 1.4 % (0-4); Lymphocytes # 2.6 K/mcL (0.6-4.6); Lymphocytes % 28.8 %; Mean Corpuscular HGB Conc 33.3 g/dL (31.6-35.5); Mean Corpuscular Hemoglobin 29.1 pg (28.0-33.3); Mean Corpuscular Volume 87.5 fL (83.0-100.0); Mean Platelet Volume 10.1 fL (9.4-12.4); Monocytes # 0.7 K/mcL (0.0-1.3); Monocytes % 7.6 %; Neutrophils # 5.3 K/mcL (1.6-8.9); Platelet Count 220 K/mcL (140-400); Red Blood Count 5.02 M/mcL (4.19-5.50); Red Cell Distribution Width 13.7 % (11.5-14.5); Segmented Neutrophils % 58.4 %
[2018-05-29 02:12] LABS: BUN/Creatinine Ratio 18 (6-26); Blood Urea Nitrogen 18 mg/dL (6-20); Calcium 9.4 mg/dL (8.6-10.3); Carbon Dioxide 32 mEq/L (23-29); Chloride 98 mEq/L (98-107); Glucose 191 mg/dL (70-105); Osmolality,Calculated 289 (280-300); Potassium 3.8 mEq/L (3.5-5.1); Sodium 136 mEq/L (136-145); eGFR For Non-African Americans > 60 (> 60)
[2018-05-29] MEDS: *HR* Heparin 5,000 UNIT/ML VIAL SQ SCH ×3 (05:02→20:30)
[2018-05-29] MEDS: Nicotine 14 MG PATCH.TD24 TD SCH (08:05)
[2018-05-29] MEDS: Insulin LISPRO 300 UNITS/3 ML VIAL SQ SCH ×4 (08:06→22:31)
[2018-05-29] MEDS: Vitamin B Complex/Vit C/Vit E 1 EACH TABLET PO SCH (08:06)
[2018-05-29] MEDS: Doxycycline 100 MG CAPSULE PO SCH ×2 (08:06→22:29)
[2018-05-29] MEDS: Folic Acid 1 MG TABLET PO SCH (08:06)
[2018-05-29] MEDS: amLODIPine 5 MG TABLET PO SCH (08:06)
[2018-05-29] MEDS: Gabapentin 100 MG CAPSULE PO SCH ×3 (08:06→22:29)
[2018-05-29] MEDS: Thiamine (B-1) 100 MG TABLET PO SCH (08:06)
[2018-05-29] MEDS: Insulin DETEMIR 100 UNIT/ML X5UNITS SQ SCH ×2 (08:07→20:23)
[2018-05-29] MEDS: traMADol 50 MG TABLET PO PRN ×2 (12:21→18:32)
--- NOTE | 2018-05-29 16:25 | Internal Med Progress Note ---
<Andrew Dumont - Last Filed: 05/29/18 16:23> Hospitalist Progress Note - Encounter Date of Encounter: 05/29/18 Time of Encounter: 16:23 - Subjective Interval History: Patient was admitted 05/22 for sepsis secondary to cellulitis and abscess and alcohol withdrawal I&D performed 05/24 Patient seen and examined this morning, no acute events overnight Patient has continued pain in the gluteal region but otherwise no acute complaints He states he is afraid to leave yet because he is homeless and will not be able to perform wound care Social work has reached out to [facility] about transferring the patient, they have made a site visit and are accepting - Exam Vitals: Temp Pulse Resp BP Pulse Ox 98.4 F 76 16 141/81 97 05/29/18 15:43 05/29/18 15:43 05/29/18 15:43 05/29/18 15:43 05/29/18 15:43 Exam: Patient in no acute distress, alert and oriented 3 Cranial nerves II through XII intact Heart in regular rate and rhythm without murmur or gallop Lungs clear to auscultation without wheeze or rales or rhonchi Abdomen obese and soft and nontender Bilateral lower extremities nonedematous Bandage on right gluteal region into the cleft clean and dry - Assessment and Plan (1) Alcohol withdrawal Current Visit: Yes Status: Acute Assessment and Plan: CIWA protocol -pt has hx of chronic alcohol abuse -drinks at least a 12 pack a day, last drink day prior to admission Patient denies withdrawal symptoms today Plan: -neuro checks -head of bed elevated, aspiration precautions -CIWA protocol, lorazepam as per protocol (2) Hypertension Current Visit: Yes Status: Chronic Assessment and Plan: BP stable since admission Continue home norvasc and lisinopril (3) DM2 (diabetes mellitus, type 2) Current Visit: Yes Status: Chronic Assessment and Plan: hold home medications low dose sliding scale insulin and glucose checks glucose stable (4) Hypokalemia Current Visit: Yes Status: Resolved Assessment and Plan: Potassium within normal limits continue to monitor (5) Hypophosphatemia Current Visit: Yes Status: Resolved Assessment and Plan: last P 2.8 continue to monitor (6) Morbid obesity Current Visit: Yes Status: Chronic Assessment and Plan: BMI 49.9 -lifestyle changes recommended (7) Polysubstance abuse Current Visit: Yes Status: Chronic Assessment and Plan: Has hx of IVDU -denies active drug abuse, other than a percocet prior to admission and marijuana occasionally -social work consulted (8) DVT prophylaxis Current Visit: Yes Status: Acute Assessment and Plan: heparin sq (9) Sepsis Current Visit: Yes Status: Resolved Assessment and Plan: Sepsis criteria based off of WBC 12.6, HR 102, RR 22 on admission Patient's white count, heart rate, respiratory rate all now within normal limits CT abd and pelvis - right perineal cellulitis w/o evidence of perirectal abscess Surgery completed I&D 05/24 without incident Abscess found, culture sent, positive for MRSA with multiple sensitivities Plan: -Vancomycin, Cefepime, Flagyl, all stopped 05/25 after 3 days -Doxycycline started 05/26 according to culture and sensitivities, day 4 -blood cultures pending -continue to monitor -Surgery commented that wound is healing appropriately -food and nutrition services supervisor and daycare provider still negotiating patient placement for discharge - Time Spent with Patient Total time spent is greater than 50% in coordination of care (as documented) at patient's floor/unit and/or counseling patient: Internal Medicine: Result - Labs CBC & Chem 7: 05/29/18 01:08 05/29/18 01:08 Labs: Short CBC 05/29/18 Range/Units 01:08 WBC 9.0 (4.3-11.1) K/mcL Hgb 14.6 (12.9-16.9) g/dL Hct 43.9 (37.5-50.1) % Plt Count 220 (140-400) K/mcL Neutrophils # 5.3 (1.6-8.9) K/mcL BMP 05/29/18 01:08 Sodium 136 Potassium 3.8 Chloride 98 Carbon Dioxide 32 H BUN 18 Creatinine 0.98 Glucose 191 H Calcium 9.4 Consult Discharge Plan - Plan Referrals: NONE,PCP [Primary Care Provider] - <Dia Lozano - Last Filed: 05/29/18 16:35> Hospitalist Progress Note - Encounter Date of Encounter: 05/29/18 - Exam Vitals: Temp Pulse Resp BP Pulse Ox 98.4 F 76 16 141/81 97 05/29/18 15:43 05/29/18 15:43 05/29/18 15:43 05/29/18 15:43 05/29/18 15:43 - Assessment and Plan (1) Alcohol withdrawal Current Visit: Yes Status: Acute (2) Hypertension Current Visit: Yes Status: Chronic (3) DVT prophylaxis Current Visit: Yes Status: Acute (4) DM2 (diabetes mellitus, type 2) Current Visit: Yes Status: Chronic (5) Hypokalemia Current Visit: Yes Status: Resolved (6) Hypophosphatemia Current Visit: Yes Status: Resolved (7) Morbid obesity Current Visit: Yes Status: Chronic (8) Polysubstance abuse Current Visit: Yes Status: Chronic (9) Sepsis Current Visit: Yes Status: Resolved - Time Spent with Patient Total time spent is greater than 50% in coordination of care (as documented) at patient's floor/unit and/or counseling patient: Internal Medicine: Result - Labs CBC & Chem 7: 05/29/18 01:08 05/29/18 01:08 Labs: Short CBC 05/29/18 Range/Units 01:08 WBC 9.0 (4.3-11.1) K/mcL Hgb 14.6 (12.9-16.9) g/dL Hct 43.9 (37.5-50.1) % Plt Count 220 (140-400) K/mcL Neutrophils # 5.3 (1.6-8.9) K/mcL BMP 05/29/18 01:08 Sodium 136 Potassium 3.8 Chloride 98 Carbon Dioxide 32 H BUN 18 Creatinine 0.98 Glucose 191 H Calcium 9.4 - Attending Attestation I examined this patient and my medical decision-making was reviewed with the Resident Physician Dr. Dumont. I agree with the documented findings, disposition and treatment plan as described except to the extent set forth below. Mr. Adams is a 48 y/o M admitted here with Right gluteal abscess, had an I & D done by surgery. He was started on empirical abx Cefepime and Vancomycin. His wound cx growing MRSA now. Pt denied any CP / SOB. No events over night Gen: A, A< O x 3 Chest: Diminished BS bl Skin: open wound over Rt gluteal region with mild purulent discharge A/P 1. Acute Rt gluteal abscess s/p I & D Wound cx - MRSA Switched to PO Doxy - Required total 14 days course Wound care as per surgery recommendations Waiting for placement <Andrew Dumont - Last Filed: 05/29/18 16:23> (1) Alcohol withdrawal Qualifiers: Complication of substance-induced condition: with unspecified complication Qualified Code(s): F10.239 - Alcohol dependence with withdrawal, unspecified (2) Hypertension Qualifiers: Hypertension type: essential hypertension Qualified Code(s): I10 - Essential (primary) hypertension (3) DM2 (diabetes mellitus, type 2) Qualifiers: Diabetes mellitus terminal gauger supervisor insulin use: without terminal gauger supervisor use Diabetes mellitus complication status: without complication Qualified Code(s): E11.9 - Type 2 diabetes mellitus without complications (9) Sepsis Qualifiers: Sepsis type: methicillin resistant Staphylococcus aureus Qualified Code(s): A41.02 - Sepsis due to Methicillin resistant Staphylococcus aureus <Dia Lozano - Last Filed: 05/29/18 16:35> (1) Alcohol withdrawal Qualifiers: Complication of substance-induced condition: with unspecified complication Qualified Code(s): F10.239 - Alcohol dependence with withdrawal, unspecified (2) Hypertension Qualifiers: Hypertension type: essential hypertension Qualified Code(s): I10 - Essential (primary) hypertension (4) DM2 (diabetes mellitus, type 2) Qualifiers: Diabetes mellitus usp insulin use: without usp use Diabetes mellitus complication status: without complication Qualified Code(s): E11.9 - Type 2 diabetes mellitus without complications (9) Sepsis Qualifiers: Sepsis type: methicillin resistant Staphylococcus aureus Qualified Code(s): A41.02 - Sepsis due to Methicillin resistant Staphylococcus aureus
[2018-05-29] MEDS: Mirtazapine 15 MG TABLET PO SCH (22:29)
[2018-05-30] MEDS: *HR* OxyCODONE Immed Rel 5 MG TABLET PO PRN ×3 (01:54→14:01)
[2018-05-30] MEDS: *HR* Heparin 5,000 UNIT/ML VIAL SQ SCH ×3 (05:33→21:59)
[2018-05-30] MEDS: Doxycycline 100 MG CAPSULE PO SCH ×2 (07:44→19:41)
[2018-05-30] MEDS: Vitamin B Complex/Vit C/Vit E 1 EACH TABLET PO SCH (07:44)
[2018-05-30] MEDS: Folic Acid 1 MG TABLET PO SCH (07:45)
[2018-05-30] MEDS: Gabapentin 100 MG CAPSULE PO SCH ×3 (07:45→19:41)
[2018-05-30] MEDS: amLODIPine 5 MG TABLET PO SCH (07:45)
[2018-05-30] MEDS: Thiamine (B-1) 100 MG TABLET PO SCH (07:46)
[2018-05-30] MEDS: Nicotine 14 MG PATCH.TD24 TD SCH (07:46)
[2018-05-30] MEDS: Insulin DETEMIR 100 UNIT/ML X5UNITS SQ SCH ×2 (08:52→21:58)
[2018-05-30] MEDS: Insulin LISPRO 300 UNITS/3 ML VIAL SQ SCH ×4 (08:53→21:57)
--- NOTE | 2018-05-30 11:34 | General Surgery Progress Note ---
Date of Encounter: 05/30/18 Time of Encounter: 11:32 Subjective Narrative: General Surgery - POD #6 Patient continued complaining of burning and throbbing pain. Pain is a chronic issue with this patient. Incision right buttocks is clean and granulating in nicely - we will discontinue hydrogen peroxide irrigations Patient remains afebrile, hemodynamically stable; pulse 66, respirations 18, blood pressure 147/64 Impression: Abscess right buttocks, postoperative day #6; acceptable postoperative status Plan: Discontinue hydrogen peroxide irrigation Dry gauze dressing daily. Placement pending Objective Vital Signs - Last 8 Hours Temp Pulse Resp BP Pulse Ox 05/30/18 06:58 98.2 F 66 18 147/64 93 Intake and Output 05/29/18 05/30/18 05/30/18 23:59 07:59 15:59 Intake Total 1800 / 1800 240 / 240 Balance 1800 / 1800 240 / 240 Intake: Oral 1800 / 1800 240 / 240 Other: Meal Dinner Breakfast Percent of Meal Consumed 100% 95% # Voids 1 Blood Glucose* 180 180 - Labs 05/29/18 01:08 05/29/18 01:08 Consult Discharge Plan - Plan Referrals: NONE,PCP [Primary Care Provider] -
[2018-05-30] MEDS: traMADol 50 MG TABLET PO PRN (12:20)
--- NOTE | 2018-05-30 15:45 | Internal Med Progress Note ---
Hospitalist Progress Note - Encounter Date of Encounter: 05/30/18 Time of Encounter: 15:44 - Subjective Interval History: Mr. Adams is a 48 y/o M admitted here with Right gluteal abscess, had an I & D done by surgery. He was started on empirical abx Cefepime and Vancomycin. His wound cx growing MRSA, switched to oral antibiotic doxycycline. Pt denied any CP / SOB. No events over night - Exam Vitals: Temp Pulse Resp BP Pulse Ox 98.1 F 65 18 137/83 98 05/30/18 12:08 05/30/18 12:08 05/30/18 12:08 05/30/18 12:08 05/30/18 12:08 Exam: Patient in no acute distress, alert and oriented 3 Heart in regular rate and rhythm without murmur or gallop Lungs clear to auscultation without wheeze or rales or rhonchi Abdomen obese and soft and nontender Bilateral lower extremities nonedematous Bandage on right gluteal region into the cleft clean and dry - Assessment and Plan (1) Abscess, gluteal, right Current Visit: Yes Status: Acute Assessment and Plan: s/p I & D Wound cx - MRSA Switched to PO Doxy - Required total 14 days course Wound care as per surgery recommendations Waiting for placement (2) Sepsis Current Visit: Yes Status: Resolved Assessment and Plan: Initially he was septic resolved now (3) Alcohol withdrawal Current Visit: Yes Status: Acute Assessment and Plan: Improved no signs of withdrawal symptoms now DC Ativan (4) Hypertension Current Visit: Yes Status: Chronic Assessment and Plan: BP stable since admission Continue home norvasc and lisinopril (5) DVT prophylaxis Current Visit: Yes Status: Acute Assessment and Plan: heparin sq (6) DM2 (diabetes mellitus, type 2) Current Visit: Yes Status: Chronic Assessment and Plan: hold home medications low dose sliding scale insulin and glucose checks glucose stable (7) Morbid obesity Current Visit: Yes Status: Chronic Assessment and Plan: BMI 49.9 -lifestyle changes recommended (8) Polysubstance abuse Current Visit: Yes Status: Chronic Assessment and Plan: Has hx of IVDU denies active drug abuse, other than a percocet prior to admission and marijuana occasionally counseled the patient - Time Spent with Patient Total time spent is greater than 50% in coordination of care (as documented) at patient's floor/unit and/or counseling patient: Internal Medicine: Result - Labs CBC & Chem 7: 05/29/18 01:08 05/29/18 01:08 Consult Discharge Plan - Plan Referrals: NONE,PCP [Primary Care Provider] - (2) Sepsis Qualifiers: Sepsis type: methicillin resistant Staphylococcus aureus Qualified Code(s): A41.02 - Sepsis due to Methicillin resistant Staphylococcus aureus (3) Alcohol withdrawal Qualifiers: Complication of substance-induced condition: with unspecified complication Qualified Code(s): F10.239 - Alcohol dependence with withdrawal, unspecified (4) Hypertension Qualifiers: Hypertension type: essential hypertension Qualified Code(s): I10 - Essential (primary) hypertension (6) DM2 (diabetes mellitus, type 2) Qualifiers: Diabetes mellitus long-term insulin use: without long-term use Diabetes mellitus complication status: without complication Qualified Code(s): E11.9 - Type 2 diabetes mellitus without complications
[2018-05-30] MEDS: *HR* OxyCODONE Immed Rel 15 MG TABLET PO PRN ×2 (16:54→23:10)
[2018-05-30] MEDS: Mirtazapine 15 MG TABLET PO SCH (23:10)
[2018-05-31] MEDS: *HR* OxyCODONE Immed Rel 15 MG TABLET PO PRN ×4 (05:22→23:32)
[2018-05-31] MEDS: *HR* Heparin 5,000 UNIT/ML VIAL SQ SCH ×3 (05:23→23:16)
[2018-05-31] MEDS: Insulin DETEMIR 100 UNIT/ML X5UNITS SQ SCH ×2 (08:21→21:25)
[2018-05-31] MEDS: Doxycycline 100 MG CAPSULE PO SCH ×2 (08:22→21:23)
[2018-05-31] MEDS: Insulin LISPRO 300 UNITS/3 ML VIAL SQ SCH ×4 (08:22→21:24)
[2018-05-31] MEDS: Folic Acid 1 MG TABLET PO SCH (08:22)
[2018-05-31] MEDS: Gabapentin 100 MG CAPSULE PO SCH ×3 (08:22→21:23)
[2018-05-31] MEDS: Vitamin B Complex/Vit C/Vit E 1 EACH TABLET PO SCH (08:22)
[2018-05-31] MEDS: Thiamine (B-1) 100 MG TABLET PO SCH (08:22)
[2018-05-31] MEDS: amLODIPine 5 MG TABLET PO SCH (08:22)
[2018-05-31] MEDS: Nicotine 14 MG PATCH.TD24 TD SCH (08:23)
--- NOTE | 2018-05-31 15:03 | Internal Med Progress Note ---
Hospitalist Progress Note - Encounter Date of Encounter: 05/31/18 Time of Encounter: 12:00 - Subjective Interval History: Mr. Adams is a 48 y/o M admitted here with Right gluteal abscess, had an I & D done by surgery. He was started on empirical abx Cefepime and Vancomycin. His wound cx growing MRSA, switched to oral antibiotic doxycycline. Pt denied any CP / SOB. No events over night - Exam Vitals: Temp Pulse Resp BP Pulse Ox 98.2 F 65 18 148/82 92 05/31/18 11:18 05/31/18 11:18 05/31/18 11:18 05/31/18 11:18 05/31/18 11:18 Exam: Patient in no acute distress, alert and oriented 3 Heart in regular rate and rhythm without murmur or gallop Lungs clear to auscultation without wheeze or rales or rhonchi Abdomen obese and soft and nontender Bilateral lower extremities nonedematous Bandage on right gluteal region into the cleft clean and dry - Assessment and Plan (1) Abscess, gluteal, right Current Visit: Yes Status: Acute Assessment and Plan: s/p I & D Wound cx - MRSA Switched to PO Doxy - # /.. Required total 14 days course Wound care as per surgery recommendations Waiting for placement (2) Sepsis Current Visit: Yes Status: Resolved Assessment and Plan: Initially he was septic resolved now (3) Alcohol withdrawal Current Visit: Yes Status: Acute Assessment and Plan: Improved no signs of withdrawal symptoms now DC Ativan (4) Hypertension Current Visit: Yes Status: Chronic Assessment and Plan: BP stable Continue home norvasc and lisinopril (5) DM2 (diabetes mellitus, type 2) Current Visit: Yes Status: Chronic Assessment and Plan: ISS + ADA diet (6) Morbid obesity Current Visit: Yes Status: Chronic Assessment and Plan: BMI 49.9 -lifestyle changes recommended (7) Polysubstance abuse Current Visit: Yes Status: Chronic Assessment and Plan: Has hx of IVDU denies active drug abuse, other than a percocet prior to admission and marijuana occasionally counseled the patient (8) DVT prophylaxis Current Visit: Yes Status: Acute Assessment and Plan: heparin sq - Time Spent with Patient Total time spent is greater than 50% in coordination of care (as documented) at patient's floor/unit and/or counseling patient: Internal Medicine: Result - Labs CBC & Chem 7: 05/29/18 01:08 05/29/18 01:08 Consult Discharge Plan - Plan Referrals: NONE,PCP [Primary Care Provider] - (2) Sepsis Qualifiers: Sepsis type: methicillin resistant Staphylococcus aureus Qualified Code(s): A41.02 - Sepsis due to Methicillin resistant Staphylococcus aureus (3) Alcohol withdrawal Qualifiers: Complication of substance-induced condition: with unspecified complication Qualified Code(s): F10.239 - Alcohol dependence with withdrawal, unspecified (4) Hypertension Qualifiers: Hypertension type: essential hypertension Qualified Code(s): I10 - Essential (primary) hypertension (5) DM2 (diabetes mellitus, type 2) Qualifiers: Diabetes mellitus chcf insulin use: without middle or intermediate school principal use Diabetes mellitus complication status: without complication Qualified Code(s): E11.9 - Type 2 diabetes mellitus without complications
[2018-05-31] MEDS: Mirtazapine 15 MG TABLET PO SCH (21:24)
[2018-06-01] MEDS: *HR* Heparin 5,000 UNIT/ML VIAL SQ SCH (05:27)
[2018-06-01] MEDS: *HR* OxyCODONE Immed Rel 15 MG TABLET PO PRN ×2 (05:28→11:37)
[2018-06-01] MEDS: Insulin LISPRO 300 UNITS/3 ML VIAL SQ SCH ×2 (07:07→11:37)
[2018-06-01] MEDS: amLODIPine 5 MG TABLET PO SCH (07:45)
[2018-06-01] MEDS: Insulin DETEMIR 100 UNIT/ML X5UNITS SQ SCH (07:45)
[2018-06-01] MEDS: Thiamine (B-1) 100 MG TABLET PO SCH (07:45)
[2018-06-01] MEDS: Nicotine 14 MG PATCH.TD24 TD SCH (07:45)
[2018-06-01] MEDS: Folic Acid 1 MG TABLET PO SCH (07:46)
[2018-06-01] MEDS: Gabapentin 100 MG CAPSULE PO SCH (07:46)
[2018-06-01] MEDS: Doxycycline 100 MG CAPSULE PO SCH (07:46)
[2018-06-01] MEDS: Vitamin B Complex/Vit C/Vit E 1 EACH TABLET PO SCH (07:46)
[2018-06-01 10:54] VITALS: BP 131/82
--- NOTE | 2018-06-01 12:21 | Discharge Summary ---
- NOTES TO OUTPATIENT PROVIDER Notes to Outpatient Provider: f/u with PCP in one week. f/u with Surgery Dr. Mendoza in 1 weeks. Cont local wound care as per surgery recommendations Date of Encounter: 06/01/18 Time of Encounter: 12:16 - Discharge Diagnosis (1) Abscess, gluteal, right Priority: Primary Status: Acute (2) Sepsis Priority: Primary Status: Resolved Qualifiers: Sepsis type: methicillin resistant Staphylococcus aureus Qualified Code(s) : A41.02 - Sepsis due to Methicillin resistant Staphylococcus aureus (3) Alcohol withdrawal Priority: Secondary Status: Acute Qualifiers: Complication of substance-induced condition: with unspecified complication Qualified Code(s): F10.239 - Alcohol dependence with withdrawal, unspecified (4) Hypertension Priority: Secondary Status: Chronic Qualifiers: Hypertension type: essential hypertension Qualified Code(s): I10 - Essential (primary) hypertension (5) DM2 (diabetes mellitus, type 2) Priority: Secondary Status: Chronic Qualifiers: Diabetes mellitus buttermaker continuous churn insulin use: without long-term use Diabetes mellitus complication status: without complication Qualified Code(s): E11.9 - Type 2 diabetes mellitus without complications (6) Morbid obesity Priority: Secondary Status: Chronic (7) Polysubstance abuse Priority: Secondary Status: Chronic (8) DVT prophylaxis Priority: Secondary Status: Acute Hospital course: Mr. Adams is a 47 year old male with PMH of EtOH abuse, HTN, polysubstance abuse and T2DM. He presented to the ER with c/o increasing right buttock pain from a "spider bite" that he started noticing friday. Pt was started on empirical abx Vanc, Flagyl and Cefepime. He was evaluated by surgery had an I & D of Right gluteal abscess by surgery. His wound cx growing MRSA, switched to oral antibiotic doxycycline. Pt is medically stable to d/c today. For his alcohol dependence he was started CIWA protocol. He never went into any DT's. Pt denied any CP / SOB. - Time Spent with Patient Total time spent providing and/or coordinating discharge services: - Discharge Medications Prescriptions: Doxycycline 100 mg PO BID #8 capsule OxyCODONE Immed Rel [Roxicodone 15 MG] 7.5 mg PO Q6H PRN 4 Days #10 tablet PRN Reason: Severe Pain Home Medications: Atenolol [Tenormin] 25 mg PO DAILY 05/18/18 [History] Gabapentin [Neurontin] 100 mg PO TID 05/18/18 [History] Lisinopril [Zestril] 5 mg PO DAILY 05/18/18 [History] Metformin HCl [Glucophage] 1,000 mg PO BIDWM 05/18/18 [History] Mirtazapine 7.5 mg PO HS 05/18/18 [History] amLODIPine [Norvasc] 10 mg PO DAILY 05/18/18 [History] hydrOXYzine pamoate [Hydroxyzine Pamoate] 25 mg PO TID PRN 05/18/18 [History] Doxycycline 100 mg PO BID #8 capsule 06/01/18 [Rx] Nicotine Patch [Nicoderm] 14 mg TD DAILY patch.td24 06/01/18 [Rx] OxyCODONE Immed Rel [Roxicodone 15 MG] 7.5 mg PO Q6H PRN 4 Days #10 tablet 06/01 [Rx] Allergies/Adverse Reactions: 3 Allergy/AdvReac Type Severity Reaction Status Date / Time Amoxicillin Allergy Hives Verified 05/15/18 13:10 Penicillins Allergy Hives Verified 05/15/18 13:10 quetiapine [From Seroquel] Allergy Hives Verified 05/15/18 13:10 chlordiazepoxide AdvReac Gastrointestinal Verified 05/15/18 13:10 [From Librium] Upset Date of admission: 05/24/18 17:10 Primary care physician: PCP NONE - Constitutional Vitals: Temp Pulse Resp BP Pulse Ox 98.2 F 65 18 131/82 96 06/01/18 10:51 06/01/18 10:51 06/01/18 10:51 06/01/18 10:51 06/01/18 10:51 General appearance: Present: cooperative, A&O X 3, no acute distress, answers questions appropriately Exam: Patient in no acute distress, alert and oriented 3 Heart in regular rate and rhythm without murmur or gallop Lungs clear to auscultation without wheeze or rales or rhonchi Abdomen obese and soft and nontender Bilateral lower extremities nonedematous Bandage on right gluteal region into the cleft clean and dry - Patient Status Disposition: Transfer SNF Condition: Good Overall status at discharge: patient is back to baseline - Discharge Instructions Follow Up With: NONE,PCP [Primary Care Provider] - Additional Instructions: Daily wound care with gauze and medipore. - Diet and Activity Activity: increase activity as tolerated Diet: low salt diet
--- NOTE | 2018-06-01 12:22 | Physician Discharge Referral ---
ExtendedCare Referral Info Transfer To: ECF Provider in Charge after Transfer: PCP Institutional Level of Care: Skilled - Diagnosis (1) Abscess, gluteal, right Status: Acute (2) Sepsis Status: Resolved (3) Alcohol withdrawal Status: Acute (4) Hypertension Status: Chronic (5) DM2 (diabetes mellitus, type 2) Status: Chronic (6) Morbid obesity Status: Chronic (7) Polysubstance abuse Status: Chronic (8) DVT prophylaxis Status: Acute - Transfer Medications Prescriptions: Doxycycline 100 mg PO BID #8 capsule OxyCODONE Immed Rel [Roxicodone 15 MG] 7.5 mg PO Q6H PRN 4 Days #10 tablet PRN Reason: Severe Pain Home Medications: Atenolol [Tenormin] 25 mg PO DAILY 05/18/18 [History] Gabapentin [Neurontin] 100 mg PO TID 05/18/18 [History] Lisinopril [Zestril] 5 mg PO DAILY 05/18/18 [History] Metformin HCl [Glucophage] 1,000 mg PO BIDWM 05/18/18 [History] Mirtazapine 7.5 mg PO HS 05/18/18 [History] amLODIPine [Norvasc] 10 mg PO DAILY 05/18/18 [History] hydrOXYzine pamoate [Hydroxyzine Pamoate] 25 mg PO TID PRN 05/18/18 [History] Doxycycline 100 mg PO BID #8 capsule 06/01/18 [Rx] Nicotine Patch [Nicoderm] 14 mg TD DAILY patch.td24 06/01/18 [Rx] OxyCODONE Immed Rel [Roxicodone 15 MG] 7.5 mg PO Q6H PRN 4 Days #10 tablet 06/01 [Rx] Allergies/Adverse Reactions: 3 Allergy/AdvReac Type Severity Reaction Status Date / Time Amoxicillin Allergy Hives Verified 05/15/18 13:10 Penicillins Allergy Hives Verified 05/15/18 13:10 quetiapine [From Seroquel] Allergy Hives Verified 05/15/18 13:10 chlordiazepoxide AdvReac Gastrointestinal Verified 05/15/18 13:10 [From Librium] Upset - Respiratory Orders Smoking Cessation: Smoking cessation has been advised. For more information, call the [place] Tobacco Quit Line at 6-738-ERSS-NOW. CERTIFICATION: I certify that the transfer of the above named patient to an Extended Care Facility is necessary for the continuing treatment of the diagnosis listed. The above information is true and accurate reflection of patient's current condition. Confidential - Redisclosure prohibited without a patient's written consent.
== END 2018-06-01 13:31 | DRG 854 ==
LOC: EMEROOARM 11:26 → INTOOBSV 17:25 → 3NENU 17:25 → SUATTDRO 05-24 17:10
PROVIDERS: ADMIT Student in an Organized Health Care Education/Training Program; ATTEND Family Medicine

== ENCOUNTER 2018-08-04 16:25 | Inpatient (IN) ==
--- NOTE | 2018-08-04 17:00 | Emergency Department Note ---
Disposition Clinical Impression: Suicidal ideation, Drug abuse, Hypokalemia Alcohol withdrawal Qualifiers: Complication of substance-induced condition: uncomplicated Qualified Code(s): F10.230 - Alcohol dependence with withdrawal, uncomplicated Disposition: Admitted As Inpatient Condition: Good Referrals: NONE,PCP [Primary Care Provider] - Forms: ED Satisfaction Letter Time of Disposition: 19:04 Psych HPI - General Chief Complaint: ED Psychiatric Symptoms Stated Complaint: SI / Detox Time Seen by Provider: 08/04/18 16:44 Source: patient Mode of arrival: ambulatory Limitations: no limitations Nursing Notes Reviewed: Yes Vital Signs Reviewed: Yes - History of Present Illness HPI Narrative: Patient is a 48 year old male with past medical history of anxiety, depression, currently not taking any psychiatric medications and has not done so for about a year; hx of HTN, diabetes. He also has a history of alcohol abuse. He drinks about 12 beers daily. Also has a history of heroin IV drug abuse and smokes methamphetamines. Last heroin use was last week, last methamphetamine use was earlier this week. Last alcoholic drink was at 1 PM yesterday. Presents today due to suicidal ideation, alcohol withdrawal. He states that he has been feeling suicidal for the past 1-2 days. He has plans to jump out in front of traffic or jump off a building. Denies any self-harm, any other ingestions or attempt at suicide. He states that he has not been able to obtain alcohol since 1 PM yesterday and has been shaking today. He is concerned that he is going through withdrawal. He does have a history of admission to 1 AM the past due to depression and suicidal ideation but was admitted to the floor due to alcohol withdrawal. Denies any other chest pain, shortness of breath. He does feel mildly nauseous, has abdominal cramping. No dysuria, hematuria, diarrhea, constipation. - Related Data Home Medications Medication Instructions Recorded Confirmed Atenolol [Tenormin] 25 mg PO DAILY 05/18/18 05/22/18 Gabapentin [Neurontin] 100 mg PO TID 05/18/18 05/22/18 Lisinopril [Zestril] 5 mg PO DAILY 05/18/18 05/22/18 Metformin HCl [Glucophage] 1,000 mg PO BIDWM 05/18/18 05/22/18 Mirtazapine 7.5 mg PO HS 05/18/18 05/22/18 amLODIPine [Norvasc] 10 mg PO DAILY 05/18/18 05/22/18 hydrOXYzine pamoate [Hydroxyzine 25 mg PO TID PRN 05/18/18 05/22/18 Pamoate] Previous Rx's Medication Instructions Recorded Doxycycline 100 mg PO BID #8 capsule 06/01/18 Nicotine Patch [Nicoderm] 14 mg TD DAILY patch.td24 06/01/18 OxyCODONE Immed Rel [Roxicodone 15 7.5 mg PO Q6H PRN 4 Days #10 tablet 06/01/18 MG] Allergies Allergy/AdvReac Type Severity Reaction Status Date / Time Amoxicillin Allergy Hives Verified 05/15/18 13:10 Penicillins Allergy Hives Verified 05/15/18 13:10 quetiapine [From Seroquel] Allergy Hives Verified 05/15/18 13:10 chlordiazepoxide AdvReac Gastrointestinal Verified 05/15/18 13:10 [From Librium] Upset All systems ED: reviewed and negative except as stated. Constitutional: Denies: fever Cardiovascular: Denies: chest pain Respiratory: Denies: cough, dyspnea Gastrointestinal: Reports: abdominal pain, nausea. Denies: vomiting, diarrhea, constipation Genitourinary: Denies: urgency, dysuria, frequency Neurological: Reports: other (Diffuse shaking) Past Medical History - Past Medical History Attestation: Yes The following information was validated with the patient. Source: patient Medical history: Reports: diabetes, hypertension Surgical history: Reports: no surgical history Psychiatric history: Reports: anxiety, bipolar, depression, PTSD, schizophrenia - Social History Smoking Status: Current every day smoker Smokeless Tobacco Status: No Alcohol use: Reports: heavy, recent Drug use: Reports: opiates, marijuana, methamphetamine, IV Drug Use, prescription drug abuse Physical Exam - General Limitations: no limitations General appearance: anxious, other (generalize tremor of extremities) - Head Head exam: atraumatic, normocephalic, normal inspection - Eye Eye exam: Present: normal appearance, PERRL, EOMI - ENT ENT exam: normal exam, normal oropharynx, mucous membranes moist - Neck Neck exam: Present: normal inspection, full ROM, trachea midline - Chest Chest inspection: Present: normal inspection, symmetric chest wall rise - Respiratory Respiratory exam: Present: normal lung sounds bilaterally. Absent: respiratory distress, wheezes, stridor, accessory muscle use - Cardiovascular Cardiovascular exam: Present: normal rhythm, tachycardia, normal heart sounds - Abdominal Exam Abdominal exam: Present: soft, Non-Tender. Absent: tenderness, distention, guarding, rebound, rigidity - Extremities Exam Extremities exam: Present: normal inspection, full ROM. Absent: tenderness, pedal edema - Neurological Exam Neurological exam: Present: alert, oriented X3, CN II-XII intact. Absent: motor sensory deficit - Expanded Neurological Exam Coma Scale Eye Opening: Spontaneous Coma Scale Motor Response: Obeys Commands Coma Scale Verbal Response: Oriented Coma Scale Total: 15 - Psychiatric Psychiatric exam: Present: normal affect, normal mood - Skin Skin exam: Present: warm, dry, intact, normal color Course Course Narrative: Patient was tachycardic and hypertensive on presentation. Otherwise, the rest of the vitals within normal limits. Physical exam showed generalized tremors but otherwise fairly benign. Patient does have active suicidal thought with plan to jump out front of traffic or jump off a building. He is also going through alcohol withdrawal. We will obtain medical clearance labs and we will give the patient Ativan for alcohol withdrawal. We will admit the patient due to alcohol withdrawal to medicine service and then we will consult 1A for evaluation for suicidal ideation. [place] slip will be signed and placed on the chart. Sitter is in place. No major lab abnormality. Urine drug screen positive for barbiturates, amphetamines, marijuana. Again, patient cannot be medically cleared at this time due to being an active alcohol withdrawal. He will need to be on a CIWA protocol. Consult to psychiatry has been placed Hypokalemia, patient has 40 mEq of potassium replaced orally. Normal saline 125 mL per hour started. Accepted by Dr. Kim. Vital Signs Temperature 98.2 F 08/04/18 16:30 Pulse Rate 115 08/04/18 16:30 Respiratory Rate 17 08/04/18 16:30 Blood Pressure 178/111 08/04/18 16:30 O2 Sat by Pulse Oximetry 96 08/04/18 16:30 Temperature 98.2 F 08/04/18 16:47 Pulse Rate 107 08/04/18 16:47 Respiratory Rate 17 08/04/18 16:47 Blood Pressure 139/92 08/04/18 16:47 O2 Sat by Pulse Oximetry 97 08/04/18 16:47 Oxygen Delivery Oxygen Delivery Room Air Psych - MDM Narrative Medical decision making narrative: Patient was tachycardic and hypertensive on presentation. Otherwise, the rest of the vitals within normal limits. Physical exam showed generalized tremors but otherwise fairly benign. Patient does have active suicidal thought with plan to jump out front of traffic or jump off a building. He is also going through alcohol withdrawal. We will obtain medical clearance labs and we will give the patient Ativan for alcohol withdrawal. We will admit the patient due to alcohol withdrawal to medicine service and then we will consult 1A for evaluation for suicidal ideation. [place] slip will be signed and placed on the chart. Sitter is in place. No major lab abnormality. Urine drug screen positive for barbiturates, amphetamines, marijuana. Again, patient cannot be medically cleared at this time due to being an active alcohol withdrawal. He will need to be on a CIWA protocol. Consult to psychiatry has been placed Hypokalemia, patient has 40 mEq of potassium replaced orally. Normal saline 125 mL per hour started. Accepted by Dr. Kim. - Medical Records Medical records reviewed: Yes I reviewed the patient's medical records. - Lab Data Lab results reviewed: Yes I reviewed the patient's lab results. Result diagrams: 08/04/18 17:29 08/04/18 17:29 Lab Results 08/04/18 08/04/18 08/04/18 Range/Units 16:54 16:54 17:29 WBC 9.8 (4.3-11.1) K/mcL RBC 4.59 (4.19-5.50) M/mcL Hgb 13.8 (12.9-16.9) g/dL Hct 40.6 (37.5-50.1) % MCV 88.5 (83.0-100.0) fL MCH 30.1 (28.0-33.3) pg MCHC 34.0 (31.6-35.5) g/dL RDW 15.0 H (11.5-14.5) % Plt Count 223 (140-400) K/mcL MPV 9.8 (9.4-12.4) fL Immature Gran % 0.4 (0-4) % Seg Neutrophils % 73.7 % Lymphocytes % 18.2 % Monocytes % 6.1 % Eosinophils % 1.0 % Basophils % 0.6 % Neutrophils # 7.2 (1.6-8.9) K/mcL Lymphocytes # 1.8 (0.6-4.6) K/mcL Monocytes # 0.6 (0.0-1.3) K/mcL Eosinophils # 0.1 (0.0-0.6) K/mcL Basophils # 0.1 (0.0-0.2) K/mcL Sodium (136-145) mEq/L Potassium (3.5-5.1) mEq/L Chloride (98-107) mEq/L Carbon Dioxide (23-29) mEq/L BUN (6-20) mg/dL Creatinine (0.70-1.30) mg/dL Est GFR ( Amer) (> 60) Est GFR (Non-Af Amer) (> 60) BUN/Creatinine Ratio (6-26) Glucose (70-105) mg/dL Calculated Osmolality (280-300) Calcium (8.6-10.3) mg/dL Urine Color Yellow (Yellow) Urine Clarity Clear (Clear) Urine pH 6.0 (5.0-8.0) pH Units Ur Specific [place] 1.009 L (1.010-1.025) Urine Protein 30 H (Neg-Trace) mg/dL Urine Glucose (UA) Normal (Normal) mg/dL Urine Ketones Negative (Negative) mg/dL Urine Blood Negative (Negative) Urine Nitrite Negative (Negative) Urine Bilirubin Negative (Negative) Urine Urobilinogen Normal (Normal) mg/dL Ur Leukocyte Esterase Negative (Negative) Urine Microscopic RBC 0-3 (0-3) per hpf Urine Microscopic WBC 0-3 (0-3) per hpf Ur Squamous Epith Cells Moderate H (None-Few) per lpf Urine Bacteria None Seen (None-Few) per hpf Hyaline Casts None Seen (None-Few) per lpf Salicylates (15.0-30.0) mg/dL Urine Opiates Screen Negative (Tgpxiv=297) ng/mL Acetaminophen (10-20) mcg/mL Ur Barbiturates Screen Positive H (Lglqik=785) ng/mL Ur Phencyclidine Scrn Negative (Cutoff=25) ng/mL Ur Amphetamines Screen Positive H (Pqlwqp=7089) ng/mL U Benzodiazepines Scrn Negative (Biopkf=946) ng/mL Urine Cocaine Screen Negative (Cutoff= 300) ng/mL U Marijuana (THC) Screen Positive H (Cutoff = 50) ng/mL Ur Drug Screen Interp See Below Ethyl Alcohol (Less than 10) mg/dL 08/04/18 Range/Units 17:29 WBC (4.3-11.1) K/mcL RBC (4.19-5.50) M/mcL Hgb (12.9-16.9) g/dL Hct (37.5-50.1) % MCV (83.0-100.0) fL MCH (28.0-33.3) pg MCHC (31.6-35.5) g/dL RDW (11.5-14.5) % Plt Count (140-400) K/mcL MPV (9.4-12.4) fL Immature Gran % (0-4) % Seg Neutrophils % % Lymphocytes % % Monocytes % % Eosinophils % % Basophils % % Neutrophils # (1.6-8.9) K/mcL Lymphocytes # (0.6-4.6) K/mcL Monocytes # (0.0-1.3) K/mcL Eosinophils # (0.0-0.6) K/mcL Basophils # (0.0-0.2) K/mcL Sodium 139 (136-145) mEq/L Potassium 2.9 L (3.5-5.1) mEq/L Chloride 105 (98-107) mEq/L Carbon Dioxide 24 (23-29) mEq/L BUN 9 (6-20) mg/dL Creatinine 0.64 L (0.70-1.30) mg/dL Est GFR ( Amer) > 60 (> 60) Est GFR (Non-Af Amer) > 60 (> 60) BUN/Creatinine Ratio 14 (6-26) Glucose 122 H (70-105) mg/dL Calculated Osmolality 288 (280-300) Calcium 9.0 (8.6-10.3) mg/dL Urine Color (Yellow) Urine Clarity (Clear) Urine pH (5.0-8.0) pH Units Ur Specific [place] (1.010-1.025) Urine Protein (Neg-Trace) mg/dL Urine Glucose (UA) (Normal) mg/dL Urine Ketones (Negative) mg/dL Urine Blood (Negative) Urine Nitrite (Negative) Urine Bilirubin (Negative) Urine Urobilinogen (Normal) mg/dL Ur Leukocyte Esterase (Negative) Urine Microscopic RBC (0-3) per hpf Urine Microscopic WBC (0-3) per hpf Ur Squamous Epith Cells (None-Few) per lpf Urine Bacteria (None-Few) per hpf Hyaline Casts (None-Few) per lpf Salicylates < 2.5 L (15.0-30.0) mg/dL Urine Opiates Screen (Tptcgf=188) ng/mL Acetaminophen < 10 L (10-20) mcg/mL Ur Barbiturates Screen (Wsquaa=989) ng/mL Ur Phencyclidine Scrn (Cutoff=25) ng/mL Ur Amphetamines Screen (Uyqinc=7345) ng/mL U Benzodiazepines Scrn (Veirwq=306) ng/mL Urine Cocaine Screen (Cutoff= 300) ng/mL U Marijuana (THC) Screen (Cutoff = 50) ng/mL Ur Drug Screen Interp Ethyl Alcohol < 10 (Less than 10) mg/dL Psychiatric Medical Clearance - Medical Clearance Checklist Medical History: No Social History Section defined Current Vitals: Last Vital Signs Temp 98.2 F 08/04/18 16:47 Pulse 107 08/04/18 16:47 Resp 17 08/04/18 16:47 BP 139/92 08/04/18 16:47 Pulse Ox 97 08/04/18 16:47 Psychiatric Lab Panel: Drug Levels and Toxicity 08/04/18 08/04/18 16:54 17:29 Urine Opiates Screen Negative Acetaminophen < 10 L Ur Barbiturates Screen Positive H Ur Phencyclidine Scrn Negative Ur Amphetamines Screen Positive H U Benzodiazepines Scrn Negative Urine Cocaine Screen Negative U Marijuana (THC) Screen Positive H Ethyl Alcohol < 10 Abnormal Labs: Abnormal lab results RDW 15.0 % (11.5-14.5) H 08/04/18 17:29 Potassium 2.9 mEq/L (3.5-5.1) L 08/04/18 17:29 Creatinine 0.64 mg/dL (0.70-1.30) L 08/04/18 17:29 Glucose 122 mg/dL (70-105) H 08/04/18 17:29 Ur Specific [place] 1.009 (1.010-1.025) L 08/04/18 16:54 Urine Protein 30 mg/dL (Neg-Trace) H 08/04/18 16:54 Ur Squamous Epith Cells Moderate per lpf (None-Few) H 08/04/18 16:54 Salicylates < 2.5 mg/dL (15.0-30.0) L 08/04/18 17:29 Acetaminophen < 10 mcg/mL (10-20) L 08/04/18 17:29 Ur Barbiturates Screen Positive ng/mL (Tanlpr=707) H 08/04/18 16:54 Ur Amphetamines Screen Positive ng/mL (Gunppx=3248) H 08/04/18 16:54 U Marijuana (THC) Screen Positive ng/mL (Cutoff = 50) H 08/04/18 16:54 Statement of Medical Clearance: I have evaluated the patient, reviewed diagnostic information, and certify that the patient's medical condition is sufficiently stable that transfer to the psychiatric unit does not pose a significant risk of deterioration. S.B.A.R. - S.B.A.R. Situation: Demographics, MOA Background: Presenting Complaint, Relevant PMH, Meds, & Allergies Assessment: Vital Signs, Course and respsone to treatment, Exam Concerns, Patient/Family Expectation, Pertinant Lab Results Recommendation: Barrier(s) to disposition, Recommendation based on pending studies, treatments, or consults S.B.A.R. Report Given to: Dr. Kmi
[2018-08-04] MEDS ORDERED: *HR* LORazepam 2 MG/ML VIAL IVP ONE ×2 (17:13→22:00)
[2018-08-04 17:38] LABS: Bilirubin,Urine Negative (Negative); Blood,Urine Negative (Negative); Clarity,Urine Clear (Clear); Color,Urine Yellow (Yellow); Glucose,Urine (UA) Normal (Normal); Ketones,Urine Negative (Negative); Leukocyte Esterase,Urine Negative (Negative); Nitrite,Urine Negative (Negative); Protein,Urine 30 mg/dL (Neg-Trace); Specific Gravity,Urine 1.009 (1.010-1.025); Urobilinogen,Urine Normal (Normal)
[2018-08-04 17:39] LABS: Bacteria,Urine None Seen per hpf (None-Few); Hyaline Casts,Urine None Seen per lpf (None-Few); RBC,Urine 0-3 per hpf (0-3); Squamous Epithelial Cell,Urine Moderate per lpf (None-Few); WBC,Urine 0-3 per hpf (0-3)
[2018-08-04 17:46] LABS: Basophils # 0.1 K/mcL (0.0-0.2); Basophils % 0.6 %; Eosinophils # 0.1 K/mcL (0.0-0.6); Hematocrit 40.6 % (37.5-50.1); Hemoglobin 13.8 g/dL (12.9-16.9); Immature Granulocytes % 0.4 % (0-4); Lymphocytes # 1.8 K/mcL (0.6-4.6); Lymphocytes % 18.2 %; Mean Corpuscular Hemoglobin 30.1 pg (28.0-33.3); Mean Corpuscular Volume 88.5 fL (83.0-100.0); Mean Platelet Volume 9.8 fL (9.4-12.4); Monocytes # 0.6 K/mcL (0.0-1.3); Monocytes % 6.1 %; Neutrophils # 7.2 K/mcL (1.6-8.9); Platelet Count 223 K/mcL (140-400); Red Blood Count 4.59 M/mcL (4.19-5.50); Segmented Neutrophils % 73.7 %
[2018-08-04 17:51] LABS: Amphetamine Screen,Urine Positive ng/mL (Cutoff=1000); Barbiturate Screen,Urine Positive ng/mL (Cutoff=200); Benzodiazepines Screen,Urine Negative ng/mL (Cutoff=200); Cannabinoid Screen,Urine Positive ng/mL (Cutoff = 50); Cocaine Screen,Urine Negative ng/mL (Cutoff= 300); Opiate Screen,Urine Negative ng/mL (Cutoff=300); Phencyclidine Screen,Urine Negative ng/mL (Cutoff=25)
[2018-08-04 18:05] LABS: Acetaminophen < 10 mcg/mL (10-20); BUN/Creatinine Ratio 14 (6-26); Blood Urea Nitrogen 9 mg/dL (6-20); Carbon Dioxide 24 mEq/L (23-29); Chloride 105 mEq/L (98-107); Ethanol < 10 mg/dL (Less than 10); Glucose 122 mg/dL (70-105); Osmolality,Calculated 288 (280-300); Potassium 2.9 mEq/L (3.5-5.1); Salicylate < 2.5 mg/dL (15.0-30.0); Sodium 139 mEq/L (136-145); eGFR For Non-African Americans > 60 (> 60)
[2018-08-04] MEDS ORDERED: Potassium Chloride Elixir 20 MEQ/15 ML UDC PO ONE (19:10)
[2018-08-04] MEDS ORDERED: 0.9 % Sodium Chloride 1,000 ML IVC SCH (19:15)
[2018-08-04] MEDS ORDERED: Naloxone 0.4 MG/ML INJ IVP PRN (20:12)
[2018-08-04] MEDS ORDERED: *HR* LORazepam 2 MG/ML VIAL IVP PRN (20:14)
[2018-08-04] MEDS ORDERED: *HR* OxyCODONE Immed Rel 15 MG TABLET PO PRN (20:15)
[2018-08-04] MEDS ORDERED: hydrOXYzine pamoate 25 MG CAPSULE PO PRN (20:15)
--- NOTE | 2018-08-04 20:49 | Internal Med History&Physical ---
<Tameka Kim - Last Filed: 08/04/18 20:49> Date of Encounter: 08/04/18 Internal Medicine - H&P: Meds Atenolol [Tenormin] 25 mg PO DAILY 05/18/18 [History] Gabapentin [Neurontin] 100 mg PO TID 05/18/18 [History] Lisinopril [Zestril] 5 mg PO DAILY 05/18/18 [History] Mirtazapine 7.5 mg PO HS 05/18/18 [History] amLODIPine [Norvasc] 10 mg PO DAILY 05/18/18 [History] hydrOXYzine pamoate [Hydroxyzine Pamoate] 25 mg PO TID PRN 05/18/18 [History] Nicotine Patch [Nicoderm] 14 mg TD DAILY patch.td24 06/01/18 [Rx] OxyCODONE Immed Rel [Roxicodone 15 MG] 7.5 mg PO Q6H PRN 4 Days #10 tablet 06/01/18 [Rx] Allergy/AdvReac Type Severity Reaction Status Date / Time Amoxicillin Allergy Hives Verified 05/15/18 13:10 Penicillins Allergy Hives Verified 05/15/18 13:10 quetiapine [From Seroquel] Allergy Hives Verified 05/15/18 13:10 chlordiazepoxide AdvReac Gastrointestinal Verified 05/15/18 13:10 [From Librium] Upset All Systems PM: A 10-system review of systems was performed and is negative for pertinent findings except as documented above in the HPI. - Constitutional Vitals: Temp Pulse Resp BP Pulse Ox 98.2 F 107 17 139/92 97 08/04/18 16:47 08/04/18 16:47 08/04/18 16:47 08/04/18 16:47 08/04/18 16:47 Internal Med - H&P Results - Labs CBC & Chem 7: 08/04/18 17:29 08/04/18 17:29 Labs: Short CBC 08/04/18 Range/Units 17:29 WBC 9.8 (4.3-11.1) K/mcL Hgb 13.8 (12.9-16.9) g/dL Hct 40.6 (37.5-50.1) % Plt Count 223 (140-400) K/mcL Neutrophils # 7.2 (1.6-8.9) K/mcL BMP 08/04/18 17:29 Sodium 139 Potassium 2.9 L Chloride 105 Carbon Dioxide 24 BUN 9 Creatinine 0.64 L Glucose 122 H Calcium 9.0 Urine 08/04/18 Range/Units 16:54 Urine Color Yellow (Yellow) Urine Clarity Clear (Clear) Urine pH 6.0 (5.0-8.0) pH Units Ur Specific [place] 1.009 L (1.010-1.025) Urine Protein 30 H (Neg-Trace) mg/dL Urine Glucose (UA) Normal (Normal) mg/dL - Time Spent With Patient Total time spent is greater than 50% in coordination of care (as documented) at patient's floor/unit and/or counseling patient: - Attending Attestation I performed a history and physical exam of the patient and discussed management with the resident. I reviewed the resident's note and agree with the documented findings and plan of care. Chinedu Adams is a 48 year old rapidly obese man with a history of hypertension, diabetes and substance use disorder who presents to the emergency room state of anxiety and depression being noncompliant with his psychiatric medications stating that he has suicidal ideation and is currently undergoing withdrawal. He states that has as alcoholic drink was yesterday afternoon and use crystal meth recently but has not used heroin since a week ago. He reported plans to jump out into traffic to kill himself feeling as though his is a failure. At this time he is notably shaky and feels abdominal cramping. Lab assessment he was seen to have a serum potassium of 2.9. Physical exam remarkable for a morbidly obese male not in acute distress but notably anxious and shaking his legs. Chest clear to auscultation. Tachycardic precordium. Protuberant abdomen but non-tender to palpation. No C/C/E. AAO 4. Affect appropriate with adequate insight into his problem. Family History reviewed and remarkable for heart disease in father and mother. We will admit to inpatient for withdrawal from illicit substances and hypokalemia. The patient will require one-to-one sitter and psychiatric evaluation in the morning. Supplement potassium and check magnesium level. Symptom triggered benzo protocol. Fall and aspiration precautions. Aspiration and mineral supplementation. Insulin sliding scale. He will benefit from community mental health social worker assistance. DVT prophylaxis. MAC SON. <Leonardo Silver Last Filed: 08/04/18 23:13> Date of Encounter: 08/04/18 Time of Encounter: 20:48 Internal Medicine - H&P: HPI Chief complaint: alcohol withdrawal Admitted From: Home History of present illness: Mr. Adams is a 48 year old male with past medical history of alcohol abuse, HTN, anxiety, and depression. He presents to the ED today complaining of "shaking" in his legs. He states this has happened before when he stopped drinking previously. States he typically drinks 12 beers per day, with his last drink being at approximately 1pm yesterday. He describes a sensation on his arms and legs "like bugs crawling on my skin". He also admits to a history of heroin and methamphetamine use; last heroin use was last week and he smoked methampetamine earlier this week. States over the past 1-2 days he has felt hopeless and worthless and wants to get help for his substance abuse and depression. States "I am such a failure at life." Does admit to SI with plans to jump in from of traffic. Denies any HI or self harm. States he has been hospitalized for depression previously. He does admit to crampy abdominal pain mainly on the right side, along with some nausea and dry heaves. He denies any chest pain, shortness of breath, emesis, diarrhea, constipation, blood in bowel movements or urine, difficulty urinating, fever, chills, numbness, or tingling. States he has occasional tension and sinus headaches but is not experiencing one currently. He does smoke approximately 1.5 packs of cigarettes per day and is requesting a nicotine patch while he is admitted. No interest in smoking cessation at this time. Psych was consulted by the ED. Vinings slip is signed and attached to ED chart currently. Past Med Surg Social Fam HX - Past Medical History Medical history: diabetes, hypertension Additional medical history: Cellulitis Psychiatric history: anxiety, bipolar, depression, PTSD, schizophrenia - Past Surgical History Surgical History: no surgical history Additional surgical history: n/a - Social History Smoking Status: Current every day smoker Smokeless Tobacco Status: No Alcohol use: heavy, recent Drug use: opiates, marijuana, methamphetamine, IV Drug Use, prescription drug abuse - Family History Father Adopted: No Family Member Ethnicity: Non- Living Status: Hx Family Cardiac Disorders: Yes ([place] in 50s) Mother Family Member Ethnicity: Non- Living Status: Hx Family Cardiac Disorders: Yes ([place] in 50s) Hx Family Cancer: Yes (Cancer) Hx Family Endocrine Disorder: Yes (Diabetes) All Systems PM: A 10-system review of systems was performed and is negative for pertinent findings except as documented above in the HPI. - Constitutional Constitutional: no chills, no excessive sweating, no fever(s), no night sweats - EENT Eyes: no blurry vision, no change in vision, no photophobia Ears: no decreased hearing, no tinnitus Nose, mouth and throat: no nasal congestion, no sinus pain, no sinus pressure - Cardiovascular Cardiovascular ROS IM: no chest pain, no diaphoresis, no dyspnea, no dyspnea on exertion, no lightheadedness, no palpitations - Respiratory Respiratory: no cough, no dyspnea, no dyspnea on exertion, no wheezing, no chest congestion, no excessive phlegm production - Gastrointestinal Gastrointestinal: abdominal pain, cramping, loose stools, nausea, no change in bowel habits, no change in stool character, no heartburn, no hematemesis, no hematochezia, no melena, no vomiting - Genitourinary Genitourinary ROS male: no dysuria, no urinary frequency, no urinary hesitancy, no urinary incontinence, no urinary urgency - Musculoskeletal Musculoskeletal ROS IM: no arthralgias, no myalgias, no numbness, no tingling - Integumentary Integumentary IM: no new lesions, no unusual bruising, no jaundice - Neurological Neurological ROS: headache(s), tremor(s), no confusion, no dizziness, no numbness, no tingling, no vertigo, no weakness - Psychiatric Psychiatric: anhedonia, anxiety, depression, hopelessness, suicidal ideation, no change in appetite, no homicidal ideation, no paranoia, no visual hallucinations - Endocrine Endocrine IM: no polydipsia, no polyphagia, no polyuria - Hematologic/Lymphatic Hematologic/Lymphatic: no easy bleeding, no easy bruising - Constitutional Vitals: Temp Pulse Resp BP Pulse Ox 98.2 F 107 17 139/92 97 08/04/18 16:47 08/04/18 16:47 08/04/18 16:47 08/04/18 16:47 08/04/18 16:47 General appearance: Present: mild distress, A&O X 3, obese, answers questions appropriately Exam: General: well developed obese male, depressed Head: normocephalic and atraumatic Eyes: PERRL, EOMI, sclera anicteric, conjunctiva pink Neck: supple, trachea midline Lungs: CTA bilaterally. non-labored breathing. No wheezes, rales, or rhonchi Heart: RRR +S1 +S2. No murmurs, clicks, or rubs GI: abdomen soft, non-tender, non-distended. normoactive bowel sounds. no masses Extremities: warm, peripheral pulses palpable and symmetrical. No edema, cyanosis, or calf tenderness. Neuro: A&Ox3. no focal deficits. No speech difficulty or abnormality Skin: warm, dry, intact Psych: depressed, normal affect. +SI but no HI Internal Med - H&P Results - Labs CBC & Chem 7: 08/04/18 17:29 08/04/18 17:29 Labs: Short CBC 08/04/18 Range/Units 17:29 WBC 9.8 (4.3-11.1) K/mcL Hgb 13.8 (12.9-16.9) g/dL Hct 40.6 (37.5-50.1) % Plt Count 223 (140-400) K/mcL Neutrophils # 7.2 (1.6-8.9) K/mcL BMP 08/04/18 17:29 Sodium 139 Potassium 2.9 L Chloride 105 Carbon Dioxide 24 BUN 9 Creatinine 0.64 L Glucose 122 H Calcium 9.0 Urine 08/04/18 Range/Units 16:54 Urine Color Yellow (Yellow) Urine Clarity Clear (Clear) Urine pH 6.0 (5.0-8.0) pH Units Ur Specific [place] 1.009 L (1.010-1.025) Urine Protein 30 H (Neg-Trace) mg/dL Urine Glucose (UA) Normal (Normal) mg/dL - Assessment and plan (1) Suicidal ideation Current Visit: Yes Status: Acute Assessment and plan: Admits to SI with plans to jump out in front of traffic Psych has been consulted (2) Alcohol withdrawal Current Visit: Yes Status: Acute Assessment and plan: Admits to drinking roughly 12 beers per day Last drink at 13:00 yesterday Experiencing some tremors in LEs - appear to be somewhat intentional at this time vs true DTs Has hx of seizures with previous alcohol withdrawals Received 1mg Ativan in ED Continue CIWA protocal IV fluids of LR Folate, thiamine, and B complex po vitamins Replacing potassium as below Will monitor mag level as well Continue to monitor closely Qualifiers: Complication of substance-induced condition: uncomplicated Qualified Code(s): F10.230 - Alcohol dependence with withdrawal, uncomplicated (3) Hypokalemia Current Visit: Yes Status: Acute Assessment and plan: Potassium 2.9 on admission Replaced with 40meq po Has LR for IV fluids Continue to monitor (4) Hypertension Current Visit: Yes Status: Chronic Assessment and plan: Continue home meds Qualifiers: Hypertension type: essential hypertension Qualified Code(s): I10 - Essential (primary) hypertension (5) Tobacco abuse Current Visit: Yes Status: Chronic Assessment and plan: Admits to smoking 1.5 ppd Spent > 10 minutes discussing the importance of cessation and treatment alternatives, pt not interested in quitting at this time Nicotine patch (6) Polysubstance abuse Current Visit: Yes Status: Chronic Assessment and plan: pt has hx of heroin and methampetamine use UDS positive for barbiturates, amphetamines, and marijuana Psych consulted as above (7) DVT prophylaxis Current Visit: Yes Status: Acute Assessment and plan: SQ Heparin - Time Spent With Patient Total time spent is greater than 50% in coordination of care (as documented) at patient's floor/unit and/or counseling patient:
[2018-08-04] MEDS: *HR* LORazepam 2 MG/ML VIAL IVP PRN (21:22)
[2018-08-04] MEDS: Mirtazapine 15 MG TABLET PO SCH (23:00)
[2018-08-04] MEDS: Ringers Solution, Lactated 1,000 ML IVC SCH (23:05)
[2018-08-04] MEDS: Nicotine 14 MG PATCH.TD24 TD SCH (23:07)
[2018-08-05] MEDS: *HR* Heparin 5,000 UNIT/ML VIAL SQ SCH ×2 (06:12→15:46)
--- NOTE | 2018-08-05 08:25 | Internal Med Progress Note ---
Hospitalist Progress Note - Encounter Date of Encounter: 08/05/18 Time of Encounter: 08:23 - Subjective Interval History: Patient seen and examined this morning. no acute overnight events. agitated overnight and lost IV access. Feels tremulous. No chest pain, sob, abdominal pain . - Exam Vitals: Temp Pulse Resp BP Pulse Ox 98.0 F 80 20 145/76 95 08/05/18 04:47 08/05/18 04:47 08/05/18 04:47 08/05/18 04:47 08/05/18 04:47 Exam: General: Obese male Eyes: PERRL, EOMI, sclera anicteric, conjunctiva pink Neck: supple, trachea midline Lungs: CTA bilaterally. non-labored breathing. No wheezes, rales, or rhonchi Heart: RRR +S1 +S2. No murmurs, rubs or cornel GI: abdomen soft, non-tender, non-distended. normoactive bowel sounds. no masses Extremities: warm, peripheral pulses palpable and symmetrical. trace edema, cyanosis, or calf tenderness. Neuro: A&Ox3. no focal deficits. No speech difficulty or abnormality, Mildly tremulous. No tongue fasciculations Skin: dermatitis change b.l LE - Assessment and Plan (1) Suicidal ideation Current Visit: Yes Status: Acute (2) Alcohol withdrawal Current Visit: Yes Status: Acute (3) DVT prophylaxis Current Visit: Yes Status: Acute (4) Hypertension Current Visit: Yes Status: Chronic (5) Tobacco abuse Current Visit: Yes Status: Chronic (6) Hypokalemia Current Visit: Yes Status: Acute (7) Polysubstance abuse Current Visit: Yes Status: Chronic - Summary of Assessment and Plan Summary of Assessment and Plan: Suicidal ideation - Admits to SI with plans to jump out in front of traffic - Psych following Alcohol withdrawal - drinks roughly 12 beers per day - Last drink friday - currently with some some tremors. No hallucinations. Not tachycardic - Has hx of seizures with previous alcohol withdrawals - No IV access. Start PO librium for now. - c/w CIWA protocal - Nutritional support Hypokalemia - Potassium 2.9 on admission. got 40meq po - On LR as IVF - f/u labs for mag and K - replete as needed Hypertension - Continue home meds Tobacco abuse - smokes 1.5 ppd - c/w Nicotine patch Polysubstance abuse - pt has hx of heroin and methampetamine use - Utox positive for barbiturates, amphetamines, and marijuana - counselled. Psyc and social service consulted DVT prophylaxis - c/w SQ Heparin - Time Spent with Patient Total time spent is greater than 50% in coordination of care (as documented) at patient's floor/unit and/or counseling patient: Internal Medicine: Result - Labs CBC & Chem 7: 08/04/18 17:29 08/04/18 17:29 Labs: Short CBC 08/04/18 Range/Units 17:29 WBC 9.8 (4.3-11.1) K/mcL Hgb 13.8 (12.9-16.9) g/dL Hct 40.6 (37.5-50.1) % Plt Count 223 (140-400) K/mcL Neutrophils # 7.2 (1.6-8.9) K/mcL BMP 08/04/18 17:29 Sodium 139 Potassium 2.9 L Chloride 105 Carbon Dioxide 24 BUN 9 Creatinine 0.64 L Glucose 122 H Calcium 9.0 Urine 08/04/18 Range/Units 16:54 Urine Color Yellow (Yellow) Urine Clarity Clear (Clear) Urine pH 6.0 (5.0-8.0) pH Units Ur Specific [place] 1.009 L (1.010-1.025) Urine Protein 30 H (Neg-Trace) mg/dL Urine Glucose (UA) Normal (Normal) mg/dL Consult Discharge Plan - Plan Referrals: NONE,PCP [Primary Care Provider] - (2) Alcohol withdrawal Qualifiers: Complication of substance-induced condition: uncomplicated Qualified Code(s): F10.230 - Alcohol dependence with withdrawal, uncomplicated (4) Hypertension Qualifiers: Hypertension type: essential hypertension Qualified Code(s): I10 - Essential (primary) hypertension
[2018-08-05] MEDS ORDERED: Nicotine 14 MG PATCH.TD24 TD SCH (09:00)
[2018-08-05] MEDS: Ringers Solution, Lactated 1,000 ML IVC SCH ×2 (09:13→20:01)
[2018-08-05] MEDS: Folic Acid 1 MG TABLET PO SCH (09:30)
[2018-08-05] MEDS: Thiamine (B-1) 100 MG TABLET PO SCH (09:30)
[2018-08-05] MEDS: amLODIPine 5 MG TABLET PO SCH (09:30)
[2018-08-05] MEDS: Vitamin B Complex/Vit C/Vit E 1 EACH TABLET PO SCH (09:30)
[2018-08-05] MEDS: Nicotine 14 MG PATCH.TD24 TD SCH (09:32)
[2018-08-05] MEDS: *HR* LORazepam 2 MG/ML VIAL IVP PRN ×4 (11:31→22:50)
[2018-08-05] MEDS: Insulin LISPRO 300 UNITS/3 ML VIAL SQ SCH ×3 (11:36→20:23)
[2018-08-05 13:22] LABS: Hematocrit 41.6 % (37.5-50.1); Hemoglobin 13.6 g/dL (12.9-16.9); Mean Corpuscular HGB Conc 32.7 g/dL (31.6-35.5); Mean Corpuscular Hemoglobin 29.6 pg (28.0-33.3); Mean Corpuscular Volume 90.6 fL (83.0-100.0); Mean Platelet Volume 10.8 fL (9.4-12.4); Platelet Count 233 K/mcL (140-400); Red Blood Count 4.59 M/mcL (4.19-5.50); Red Cell Distribution Width 15.4 % (11.5-14.5)
[2018-08-05 13:45] LABS: BUN/Creatinine Ratio 12 (6-26); Blood Urea Nitrogen 9 mg/dL (6-20); Carbon Dioxide 26 mEq/L (23-29); Chloride 105 mEq/L (98-107); Glucose 102 mg/dL (70-105); Magnesium 1.9 mg/dL (1.6-2.6); Osmolality,Calculated 287 (280-300); Phosphorous 1.7 mg/dL (2.7-4.5); Potassium 3.4 mEq/L (3.5-5.1); Sodium 139 mEq/L (136-145); eGFR For Non-African Americans > 60 (> 60)
[2018-08-05] MEDS ORDERED: Potassium Phosphate 44 MEQ in 0.9 % Sodium Chloride 250 ML IVPB ONE (15:21)
--- NOTE | 2018-08-05 17:41 | Consult Note ---
Date of Encounter: 08/05/18 Time of Encounter: 16:00 Assessment & Recommendation (1) Alcohol dependence with uncomplicated withdrawal Current visit: Yes Status: Acute (2) Depression Current visit: No Status: Chronic Qualifiers: Depression Type: major depressive disorder Major depression recurrence: recurrent Active/Remission status: currently active Major depression episode severity: unspecified Qualified Code(s): F33.9 - Major depressive disorder, recurrent, unspecified (3) Suicidal ideation Current visit: Yes Status: Acute History of Present Illness Patient: known to practice within the last 3 years Requesting Physician: Gisela Keith MD Reason for consult: SI with alcohol withdrawal History of present illness: Mr. Adams is a 48 year old male Chief complaint: I need more Ativan. I will kill myself if I do not get into alcohol rehabilitation. History of present illness. The patient reports that he has had difficulty with alcohol. The reader is referred to the history and physical on the previous notes by psychiatry. The patient reports that he had suicidal ideation but these occur in the context of alcohol withdrawal he is getting alcohol treatment with a C1 on interview he is shaky and tremulous. He is mildly irritable. The patient states that he has not been on antidepressant medicines does not have major depression. He states that he has thought about killing himself but does not think about killing himself while in the room. The patient currently has a sitter. He expresses a desire to go to alcohol rehabilitation he reports that he has not been able to stop IV heroin use. He notes that alcohol remains a problem for him. Notes that this is causing problems with his relationship with his son. He also reports irritability associated with alcohol withdrawal CC: Gisela Keith MD Past Med Surg Social Fam HX - Past Medical History Source: patient Medical history: diabetes, hypertension - Past Psychiatric History Psychiatric history: Reports: depression, previous psychiatric hospitalization - Past Surgical History Surgical History: no surgical history - Social History Smoking Status: Current every day smoker Smokeless Tobacco Status: No Alcohol use: heavy, recent Drug use: opiates, marijuana, methamphetamine, IV Drug Use, prescription drug abuse - Family History Father Adopted: No Family Member Ethnicity: Non- Living Status: Hx Family Cardiac Disorders: Yes ([place] in 50s) Mother Family Member Ethnicity: Non- Living Status: Hx Family Cardiac Disorders: Yes ([place] in 50s) Hx Family Cancer: Yes (Cancer) Hx Family Endocrine Disorder: Yes (Diabetes) Medications & Allergies Atenolol [Tenormin] 25 mg PO DAILY 05/18/18 [History] Gabapentin [Neurontin] 100 mg PO TID 05/18/18 [History] Lisinopril [Zestril] 5 mg PO DAILY 05/18/18 [History] Mirtazapine 7.5 mg PO HS 05/18/18 [History] amLODIPine [Norvasc] 10 mg PO DAILY 05/18/18 [History] hydrOXYzine pamoate [Hydroxyzine Pamoate] 25 mg PO TID PRN 05/18/18 [History] Nicotine Patch [Nicoderm] 14 mg TD DAILY patch.td24 06/01/18 [Rx] OxyCODONE Immed Rel [Roxicodone 15 MG] 7.5 mg PO Q6H PRN 4 Days #10 tablet 06/01/18 [Rx] Allergy/AdvReac Type Severity Reaction Status Date / Time Amoxicillin Allergy Hives Verified 05/15/18 13:10 Penicillins Allergy Hives Verified 05/15/18 13:10 quetiapine [From Seroquel] Allergy Hives Verified 05/15/18 13:10 chlordiazepoxide AdvReac Gastrointestinal Verified 05/15/18 13:10 [From Librium] Upset Review of Systems Psychiatric: Reports: abnormal sleep pattern, suicidal ideation, irritability Psychiatry Exam - Constitutional Vitals: Temp Pulse Resp BP Pulse Ox 98.5 F 86 16 152/96 98 08/05/18 11:37 08/05/18 11:37 08/05/18 11:37 08/05/18 11:37 08/05/18 11:37 General appearance: age & developmentally appropriate, well-groomed, well- nourished, obese - Psychiatric Patient Orientation: Yes Person, Yes Time, Yes Place Level of alertness: Alert Behavior: calm, cooperative Psychomotor activity: Increased Eye Contact: Maintains Eye Contact Affect description: congruent with mood, full range, dysphoric Speech Volume: Loud Speech pattern: normal rate, normal rhythm, normal tone, fluent, spontaneous Language & Vocabulary: consistent with education Thought Process: Linear, Goal Oriented Thought Content: Yes Suicidal ideation, No Homicidal ideation, No Overt delusions Perceptual Disturbances: No Auditory hallucinations, No Visual hallucinations Attention Span Ability: Capable of Focused Attention Memory Description: Grossly Intact Patient Reliability: Reliable Historian Fund of knowledge: Yes abstraction ability, Yes aware of current events Intelligence Estimate: Average Judgment: Fair Insight: Partial Results - Drug Levels and Toxicology Drug Levels and Toxicology: Drug Levels and Toxicity 08/04/18 08/04/18 16:54 17:29 Urine Opiates Screen Negative Acetaminophen < 10 L Ur Barbiturates Screen Positive H Ur Phencyclidine Scrn Negative Ur Amphetamines Screen Positive H U Benzodiazepines Scrn Negative Urine Cocaine Screen Negative U Marijuana (THC) Screen Positive H Ethyl Alcohol < 10 - Labs Labs: Laboratory Last Values WBC 9.4 K/mcL (4.3-11.1) 08/05/18 07:59 RBC 4.59 M/mcL (4.19-5.50) 08/05/18 07:59 Hgb 13.6 g/dL (12.9-16.9) 08/05/18 07:59 Hct 41.6 % (37.5-50.1) 08/05/18 07:59 MCV 90.6 fL (83.0-100.0) 08/05/18 07:59 MCH 29.6 pg (28.0-33.3) 08/05/18 07:59 MCHC 32.7 g/dL (31.6-35.5) 08/05/18 07:59 RDW 15.4 % (11.5-14.5) H 08/05/18 07:59 Plt Count 233 K/mcL (140-400) 08/05/18 07:59 MPV 10.8 fL (9.4-12.4) 08/05/18 07:59 Immature Gran % 0.4 % (0-4) 08/04/18 17:29 Seg Neutrophils % 73.7 % 08/04/18 17:29 Lymphocytes % 18.2 % 08/04/18 17:29 Monocytes % 6.1 % 08/04/18 17:29 Eosinophils % 1.0 % 08/04/18 17:29 Basophils % 0.6 % 08/04/18 17:29 Neutrophils # 7.2 K/mcL (1.6-8.9) 08/04/18 17:29 Lymphocytes # 1.8 K/mcL (0.6-4.6) 08/04/18 17:29 Monocytes # 0.6 K/mcL (0.0-1.3) 08/04/18 17:29 Eosinophils # 0.1 K/mcL (0.0-0.6) 08/04/18 17:29 Basophils # 0.1 K/mcL (0.0-0.2) 08/04/18 17:29 Sodium 139 mEq/L (136-145) 08/05/18 07:59 Potassium 3.4 mEq/L (3.5-5.1) L 08/05/18 07:59 Chloride 105 mEq/L (98-107) 08/05/18 07:59 Carbon Dioxide 26 mEq/L (23-29) 08/05/18 07:59 BUN 9 mg/dL (6-20) 08/05/18 07:59 Creatinine 0.75 mg/dL (0.70-1.30) 08/05/18 07:59 Est GFR ( Amer) > 60 (> 60) 08/05/18 07:59 Est GFR (Non-Af Amer) > 60 (> 60) 08/05/18 07:59 BUN/Creatinine Ratio 12 (6-26) 08/05/18 07:59 Glucose 102 mg/dL (70-105) 08/05/18 07:59 POC Glucose 166 mg/dL (70-99) H 08/05/18 16:07 Calculated Osmolality 287 (280-300) 08/05/18 07:59 Calcium 9.0 mg/dL (8.6-10.3) 08/05/18 07:59 Phosphorus 1.7 mg/dL (2.7-4.5) L 08/05/18 07:59 Magnesium 1.9 mg/dL (1.6-2.6) 08/05/18 07:59 Urine Color Yellow (Yellow) 08/04/18 16:54 Urine Clarity Clear (Clear) 08/04/18 16:54 Urine pH 6.0 pH Units (5.0-8.0) 08/04/18 16:54 Ur Specific [place] 1.009 (1.010-1.025) L 08/04/18 16:54 Urine Protein 30 mg/dL (Neg-Trace) H 08/04/18 16:54 Urine Glucose (UA) Normal mg/dL (Normal) 08/04/18 16:54 Urine Ketones Negative mg/dL (Negative) 08/04/18 16:54 Urine Blood Negative (Negative) 08/04/18 16:54 Urine Nitrite Negative (Negative) 08/04/18 16:54 Urine Bilirubin Negative (Negative) 08/04/18 16:54 Urine Urobilinogen Normal mg/dL (Normal) 08/04/18 16:54 Ur Leukocyte Esterase Negative (Negative) 08/04/18 16:54 Urine Microscopic RBC 0-3 per hpf (0-3) 08/04/18 16:54 Urine Microscopic WBC 0-3 per hpf (0-3) 08/04/18 16:54 Ur Squamous Epith Cells Moderate per lpf (None-Few) H 08/04/18 16:54 Urine Bacteria None Seen per hpf (None-Few) 08/04/18 16:54 Hyaline Casts None Seen per lpf (None-Few) 08/04/18 16:54 Nasal Screen MRSA (PCR) Positive (Negative) A 08/05/18 09:40 Salicylates < 2.5 mg/dL (15.0-30.0) L 08/04/18 17:29 Urine Opiates Screen Negative ng/mL (Lflipu=303) 08/04/18 16:54 Acetaminophen < 10 mcg/mL (10-20) L 08/04/18 17:29 Ur Barbiturates Screen Positive ng/mL (Xvawld=578) H 08/04/18 16:54 Ur Phencyclidine Scrn Negative ng/mL (Cutoff=25) 08/04/18 16:54 Ur Amphetamines Screen Positive ng/mL (Sfwymi=[id number]) H 08/04/18 16:54 U Benzodiazepines Scrn Negative ng/mL (Mhzusw=519) 08/04/18 16:54 Urine Cocaine Screen Negative ng/mL (Cutoff= 300) 08/04/18 16:54 U Marijuana (THC) Screen Positive ng/mL (Cutoff = 50) H 08/04/18 16:54 Ur Drug Screen Interp See Below 08/04/18 16:54 Ethyl Alcohol < 10 mg/dL (Less than 10) 08/04/18 17:29 Consult Discharge Plan - Plan Referrals: NONE,PCP [Primary Care Provider] -
[2018-08-05] MEDS: Mirtazapine 15 MG TABLET PO SCH (20:21)
[2018-08-06 05:25] LABS: BUN/Creatinine Ratio 13 (6-26); Blood Urea Nitrogen 8 mg/dL (6-20); Calcium 8.8 mg/dL (8.6-10.3); Carbon Dioxide 25 mEq/L (23-29); Chloride 104 mEq/L (98-107); Glucose 164 mg/dL (70-105); Osmolality,Calculated 284 (280-300); Potassium 3.4 mEq/L (3.5-5.1); Sodium 136 mEq/L (136-145); eGFR For Non-African Americans > 60 (> 60)
[2018-08-06] MEDS: *HR* Heparin 5,000 UNIT/ML VIAL SQ SCH ×2 (06:13→17:34)
[2018-08-06] MEDS: Thiamine (B-1) 100 MG TABLET PO SCH (07:55)
[2018-08-06] MEDS: Nicotine 14 MG PATCH.TD24 TD SCH (07:55)
[2018-08-06] MEDS: Folic Acid 1 MG TABLET PO SCH (07:56)
[2018-08-06] MEDS: Vitamin B Complex/Vit C/Vit E 1 EACH TABLET PO SCH (07:56)
[2018-08-06] MEDS: amLODIPine 5 MG TABLET PO SCH (07:56)
[2018-08-06] MEDS: Insulin LISPRO 300 UNITS/3 ML VIAL SQ SCH ×4 (07:57→21:12)
--- NOTE | 2018-08-06 10:43 | Internal Med Progress Note ---
Hospitalist Progress Note - Encounter Date of Encounter: 08/06/18 Time of Encounter: 10:38 - Subjective Interval History: Patient seen and examined this morning. no acute overnight events. Feels tremulous, headache and says bugs crawling under his skin. No chest pain, sob, abdominal pain. However while patient is resting that he is not tremulous. Whenever he is woken up he starts shaking extensively more in his legs than hand. Upset that he is not getting his medications. - Exam Vitals: Temp Pulse Resp BP Pulse Ox 99.0 F 87 16 157/92 94 08/06/18 07:49 08/06/18 07:49 08/06/18 07:49 08/06/18 07:49 08/06/18 07:49 Exam: General: Obese male Neck: supple, trachea midline Lungs: CTA bilaterally. non-labored breathing. No wheezes, rales, or rhonchi Heart: RRR, +S1 +S2. No murmurs, rubs or cornel GI: abdomen soft, non-tender, non-distended. normoactive bowel sounds. no masses Extremities: warm, peripheral pulses palpable and symmetrical. trace edema, cy anosis, or calf tenderness. Neuro: A&Ox3. no focal deficits. No speech difficulty or abnormality. No tongue fasciculations. Skin: dermatitis change b.l SHUKRI Lunasch: Whenever patient conscious being observed he starts shaking his legs and hand. Aggressive and agitated. - Assessment and Plan (1) Suicidal ideation Current Visit: Yes Status: Acute (2) Alcohol withdrawal Current Visit: Yes Status: Acute (3) DVT prophylaxis Current Visit: Yes Status: Acute (4) Hypertension Current Visit: Yes Status: Chronic (5) Tobacco abuse Current Visit: Yes Status: Chronic (6) Hypokalemia Current Visit: Yes Status: Acute (7) Polysubstance abuse Current Visit: Yes Status: Chronic - Summary of Assessment and Plan Summary of Assessment and Plan: Suicidal ideation - Admits to SI with plans to jump out in front of traffic - Currently on pink slip - Psych following Alcohol withdrawal - drinks roughly 12 beers per day - Last drink friday - currently with some tremors in legs more than hand and particularly when observed. Not tachycardic. Blood pressure stable. - Currently on CIWA protocol. However patient appears to his feign symptoms to get more frequent benzodiazepines. We will follow with psychiatry if there are alternatives. - Continue serial protocol for today - Social service consulted for alcohol rehabilitation program Hypokalemia - replete as needed Hypertension - Continue home meds Tobacco abuse - smokes 1.5 ppd - c/w Nicotine patch Polysubstance abuse - pt has hx of heroin and methampetamine use - Utox positive for barbiturates, amphetamines, and marijuana - counselled. DVT prophylaxis - c/w SQ Heparin - Time Spent with Patient Total time spent is greater than 50% in coordination of care (as documented) at patient's floor/unit and/or counseling patient: Internal Medicine: Result - Labs CBC & Chem 7: 08/05/18 07:59 08/06/18 04:48 Labs: Short CBC 08/05/18 Range/Units 07:59 WBC 9.4 (4.3-11.1) K/mcL Hgb 13.6 (12.9-16.9) g/dL Hct 41.6 (37.5-50.1) % Plt Count 233 (140-400) K/mcL BMP 08/05/18 08/06/18 07:59 04:48 Sodium 139 136 Potassium 3.4 L 3.4 L Chloride 105 104 Carbon Dioxide 26 25 BUN 9 8 Creatinine 0.75 0.64 L Glucose 102 164 H Calcium 9.0 8.8 Consult Discharge Plan - Plan Referrals: NONE,PCP [Primary Care Provider] - ___ (2) Alcohol withdrawal Qualifiers: Complication of substance-induced condition: uncomplicated Qualified Code(s): F10.230 - Alcohol dependence with withdrawal, uncomplicated (4) Hypertension Qualifiers: Hypertension type: essential hypertension Qualified Code(s): I10 - Essential (primary) hypertension
[2018-08-06] MEDS: *HR* LORazepam 2 MG/ML VIAL IVP PRN ×2 (10:44→15:28)
[2018-08-06] MEDS ORDERED: diazePAM 10 MG TABLET PO ONE ×6 (17:00→23:00)
[2018-08-06] MEDS: Mirtazapine 15 MG TABLET PO SCH (21:15)
[2018-08-07] MEDS ORDERED: diazePAM 10 MG TABLET PO ONE ×5 (01:00→09:00)
[2018-08-07] MEDS: *HR* Heparin 5,000 UNIT/ML VIAL SQ SCH ×2 (05:16→16:43)
[2018-08-07] MEDS: Vitamin B Complex/Vit C/Vit E 1 EACH TABLET PO SCH (08:16)
[2018-08-07] MEDS: Nicotine 14 MG PATCH.TD24 TD SCH (08:17)
[2018-08-07] MEDS: Folic Acid 1 MG TABLET PO SCH (08:17)
[2018-08-07] MEDS: Insulin LISPRO 300 UNITS/3 ML VIAL SQ SCH ×4 (08:17→23:06)
[2018-08-07] MEDS: Thiamine (B-1) 100 MG TABLET PO SCH (08:17)
[2018-08-07] MEDS: amLODIPine 5 MG TABLET PO SCH (08:17)
[2018-08-07] MEDS ORDERED: Baclofen 10 MG TABLET PO PRN (13:04)
--- NOTE | 2018-08-07 13:30 | Internal Med Progress Note ---
Hospitalist Progress Note - Encounter Date of Encounter: 08/07/18 Time of Encounter: 13:26 - Subjective Interval History: Patient seen and examined this morning. no acute overnight events. Without any tremors. Denies any fevers chills nausea or vomiting. Feels jittery. Had Valium tolerance testing yesterday. - Exam Vitals: Temp Pulse Resp BP Pulse Ox 98.6 F 89 16 156/90 100 08/07/18 13:17 08/07/18 13:17 08/07/18 13:17 08/07/18 13:17 08/07/18 13:17 Exam: General: Obese male Lungs: CTA bilaterally. non-labored breathing. No wheezes, rales, or rhonchi Heart: RRR, +S1 +S2. No murmurs, rubs or cornel GI: abdomen soft, non-tender, non-distended. normoactive bowel sounds. no masses Extremities: warm, peripheral pulses palpable and symmetrical. trace edema, cyanosis, or calf tenderness. Neuro: A&Ox3. no focal deficits. No speech difficulty or abnormality. No tongue fasciculations. Skin: dermatitis change b.l LE Pysch: Less Aggressive and agitated. - Assessment and Plan (1) Suicidal ideation Current Visit: Yes Status: Acute (2) Alcohol withdrawal Current Visit: Yes Status: Acute (3) DVT prophylaxis Current Visit: Yes Status: Acute (4) Hypertension Current Visit: Yes Status: Chronic (5) Tobacco abuse Current Visit: Yes Status: Chronic (6) Hypokalemia Current Visit: Yes Status: Acute (7) Polysubstance abuse Current Visit: Yes Status: Chronic - Summary of Assessment and Plan Summary of Assessment and Plan: Suicidal ideation - Patient has malingering in attempt to recieve Ativan and other controlled substances. - Will manage alcohol withdrawal as below. - Psych following. Alcohol withdrawal - drinks roughly 12 beers per day - Last drink friday - He is not a good candidate for CIWA protocol as he feigns signs and symptoms to obtain controlled substance - Had valium tolerance testing. Will start Gabapentine and Baclofen per psychiatry recommendations. - Social service consulted for alcohol rehabilitation program. Currently underway - Discussed with patient to discharge once place available or without further signs of withdrawal. Hypokalemia - replete as needed Hypertension - Continue home meds - Mildly elevated today. - Will monitor for now. Tobacco abuse - smokes 1.5 ppd - c/w Nicotine patch Polysubstance abuse - pt has hx of heroin and methampetamine use - Utox positive for barbiturates, amphetamines, and marijuana - counselled. - Will not discharge on any controlled subtance. DVT prophylaxis - c/w SQ Heparin - Time Spent with Patient Total time spent is greater than 50% in coordination of care (as documented) at patient's floor/unit and/or counseling patient: Internal Medicine: Result - Labs CBC & Chem 7: 08/05/18 07:59 08/06/18 04:48 Consult Discharge Plan - Plan Referrals: NONE,PCP [Primary Care Provider] - (2) Alcohol withdrawal Qualifiers: Complication of substance-induced condition: uncomplicated Qualified Code(s): F10.230 - Alcohol dependence with withdrawal, uncomplicated (4) Hypertension Qualifiers: Hypertension type: essential hypertension Qualified Code(s): I10 - Essential (primary) hypertension
[2018-08-07] MEDS: Gabapentin 300 MG CAPSULE PO SCH ×3 (15:33→20:56)
[2018-08-07] MEDS ORDERED: Acetaminophen 325 MG TABLET PO ONE (20:36)
[2018-08-07] MEDS: Mirtazapine 15 MG TABLET PO SCH (23:08)
[2018-08-08] MEDS: *HR* Heparin 5,000 UNIT/ML VIAL SQ SCH ×2 (05:31→17:17)
[2018-08-08] MEDS: Vitamin B Complex/Vit C/Vit E 1 EACH TABLET PO SCH (08:52)
[2018-08-08] MEDS: Folic Acid 1 MG TABLET PO SCH (08:52)
[2018-08-08] MEDS: Thiamine (B-1) 100 MG TABLET PO SCH (08:52)
[2018-08-08] MEDS: amLODIPine 5 MG TABLET PO SCH (08:52)
[2018-08-08] MEDS: Gabapentin 300 MG CAPSULE PO SCH ×3 (08:52→21:17)
[2018-08-08] MEDS: Nicotine 14 MG PATCH.TD24 TD SCH (08:53)
[2018-08-08] MEDS: Insulin LISPRO 300 UNITS/3 ML VIAL SQ SCH ×4 (08:55→21:18)
--- NOTE | 2018-08-08 11:42 | Internal Med Progress Note ---
Hospitalist Progress Note - Encounter Date of Encounter: 08/08/18 Time of Encounter: 08:23 - Subjective Interval History: Patient seen and examined this morning. no acute overnight events. No fevers chills nausea or vomiting. Complains of pain at the spot on the back of his head. Denies any chest pain, shortness of breath or palpitation - Exam Vitals: Temp Pulse Resp BP Pulse Ox 98.8 F 67 17 125/68 92 08/08/18 10:27 08/08/18 10:27 08/08/18 10:27 08/08/18 10:27 08/08/18 10:27 Exam: General: Obese male Head: small area with Follicular inflammation on Back on head Lungs: CTA bilaterally. non-labored breathing. No wheezes, rales, or rhonchi Heart: RRR, +S1 +S2. No murmurs, rubs or cornel GI: abdomen soft, non-tender, non-distended. normoactive bowel sounds. no masses Extremities: warm, peripheral pulses palpable and symmetrical. trace edema, cyanosis, or calf tenderness. Neuro: A&Ox3. no focal deficits. No speech difficulty or abnormality. No tongue fasciculations. Skin: dermatitis change b.l LE Pysch: Less Aggressive and agitated. - Assessment and Plan (1) Suicidal ideation Current Visit: Yes Status: Acute (2) Alcohol withdrawal Current Visit: Yes Status: Acute (3) DVT prophylaxis Current Visit: Yes Status: Acute (4) Hypertension Current Visit: Yes Status: Chronic (5) Tobacco abuse Current Visit: Yes Status: Chronic (6) Hypokalemia Current Visit: Yes Status: Acute (7) Polysubstance abuse Current Visit: Yes Status: Chronic - Summary of Assessment and Plan Summary of Assessment and Plan: Suicidal ideation - Patient has malingering in attempt to recieve Ativan and other controlled substances. - Will manage alcohol withdrawal as below. - Psych following. Alcohol withdrawal - drinks roughly 12 beers per day - Last drink friday - He is not a good candidate for CIWA protocol as he feigns signs and symptoms to obtain controlled substance - Had valium tolerance testing. c/w Gabapentine taper and Baclofen per psychiatry recommendations. - Social service consulted for alcohol rehabilitation program. Currently underway. Has not found a place for rehab after discharge. - High risk of relapse. Will discharge to rehab once available. Hypokalemia - replete as needed Hypertension - Continue home meds - controlled - Will monitor for now. Tobacco abuse - smokes 1.5 ppd - c/w Nicotine patch Polysubstance abuse - pt has hx of heroin and methampetamine use - Utox positive for barbiturates, amphetamines, and marijuana - counselled. - Will not discharge on any controlled subtance. DVT prophylaxis - c/w SQ Heparin - Time Spent with Patient Total time spent is greater than 50% in coordination of care (as documented) at patient's floor/unit and/or counseling patient: Internal Medicine: Result - Labs CBC & Chem 7: 08/05/18 07:59 08/06/18 04:48 Consult Discharge Plan - Plan Referrals: NONE,PCP [Primary Care Provider] - (2) Alcohol withdrawal Qualifiers: Complication of substance-induced condition: uncomplicated Qualified Code(s): F10.230 - Alcohol dependence with withdrawal, uncomplicated (4) Hypertension Qualifiers: Hypertension type: essential hypertension Qualified Code(s): I10 - Essential (primary) hypertension
[2018-08-08] MEDS: Mirtazapine 15 MG TABLET PO SCH (21:17)
[2018-08-09] MEDS: *HR* Heparin 5,000 UNIT/ML VIAL SQ SCH ×2 (06:08→16:17)
[2018-08-09] MEDS: Insulin LISPRO 300 UNITS/3 ML VIAL SQ SCH ×4 (07:50→21:02)
[2018-08-09] MEDS: Nicotine 14 MG PATCH.TD24 TD SCH (10:18)
[2018-08-09] MEDS: Thiamine (B-1) 100 MG TABLET PO SCH (10:18)
[2018-08-09] MEDS: Folic Acid 1 MG TABLET PO SCH (10:18)
[2018-08-09] MEDS: amLODIPine 5 MG TABLET PO SCH (10:18)
[2018-08-09] MEDS: Vitamin B Complex/Vit C/Vit E 1 EACH TABLET PO SCH (10:18)
[2018-08-09] MEDS: Gabapentin 300 MG CAPSULE PO SCH (10:19)
--- NOTE | 2018-08-09 12:42 | Internal Med Progress Note ---
Hospitalist Progress Note - Encounter Date of Encounter: 08/09/18 Time of Encounter: 11:46 - Subjective Interval History: Patient seen and examined this morning. no acute overnight events. No fevers chills nausea or vomiting. Complains of pain at the spot on the back of his head. Denies any chest pain, shortness of breath or palpitation - Exam Vitals: Temp Pulse Resp BP Pulse Ox 98.9 F 63 20 147/78 93 08/09/18 06:37 08/09/18 06:37 08/09/18 06:37 08/09/18 06:37 08/09/18 06:37 - Assessment and Plan (1) Suicidal ideation Current Visit: Yes Status: Acute (2) Alcohol withdrawal Current Visit: Yes Status: Acute (3) DVT prophylaxis Current Visit: Yes Status: Acute (4) Hypertension Current Visit: Yes Status: Chronic (5) Tobacco abuse Current Visit: Yes Status: Chronic (6) Hypokalemia Current Visit: Yes Status: Acute (7) Polysubstance abuse Current Visit: Yes Status: Chronic - Time Spent with Patient Total time spent is greater than 50% in coordination of care (as documented) at patient's floor/unit and/or counseling patient: Internal Medicine: Result - Labs CBC & Chem 7: 08/05/18 07:59 08/06/18 04:48 Consult Discharge Plan - Plan Referrals: NONE,PCP [Primary Care Provider] - (2) Alcohol withdrawal Qualifiers: Complication of substance-induced condition: uncomplicated Qualified Code(s): F10.230 - Alcohol dependence with withdrawal, uncomplicated (4) Hypertension Qualifiers: Hypertension type: essential hypertension Qualified Code(s): I10 - Essential (primary) hypertension
--- NOTE | 2018-08-09 12:45 | Discharge Summary ---
- NOTES TO OUTPATIENT PROVIDER Notes to Outpatient Provider: Needs alcohol rehabilitation to prevent further hospitalization. Patient also malingering to seek control substances for alcohol withdrawal and by presenting suicidal ideation. Date of Encounter: 08/09/18 Time of Encounter: 11:36 - Discharge Diagnosis (1) Suicidal ideation Priority: Primary Status: Acute (2) Alcohol withdrawal Priority: Primary Status: Acute Qualifiers: Complication of substance-induced condition: uncomplicated Qualified Code(s): F10.230 - Alcohol dependence with withdrawal, uncomplicated (3) DVT prophylaxis Priority: Secondary Status: Acute (4) Hypertension Priority: Secondary Status: Chronic Qualifiers: Hypertension type: essential hypertension Qualified Code(s): I10 - Essential (primary) hypertension (5) Tobacco abuse Priority: Secondary Status: Chronic (6) Hypokalemia Priority: Secondary Status: Acute (7) Polysubstance abuse Priority: Secondary Status: Chronic Hospital course: Mr. Adams is a 48 year old male with past medical history of hypertension anxiety L Kiko abuse and depression with history of multiple episodes of hospitalization came in complaining of shaking in his legs and suicidal ideation. Patient was admitted for alcohol withdrawal and suicidal ideation. Patient was started on CIWA protocol. However patient appeared feign symptoms on CIWA scoring and malingering to obtain IV benzodiazepines. Psychiatry consult was obtained who obtain Valium tolerance testing. Patient was started on gabapentin based on the Valium tolerance test. Patient appeared to feel better with gabapentin and did not have any signs of withdrawal afterwards or was not actively suicidal. He wants to go to alcohol rehabilitation which director of social media marketing is attempting to find a place. Patient would be discharged on gabapentin and if needed on baclofen and Topamax. Patient would not be given any controlled substances for pain of withdrawal. Currently patient is medically stable to be discharged to alcohol rehabilitation. . Discharge discussed with: patient, nurse - Time Spent with Patient Total time spent providing and/or coordinating discharge services: Greater than 30 minutes (38) - Discharge Medications Prescriptions: Gabapentin [Neurontin] 800 mg PO TID 15 Days #60 capsule Home Medications: Atenolol [Tenormin] 25 mg PO DAILY 05/18/18 [History] Gabapentin [Neurontin] 100 mg PO TID 05/18/18 [History] Lisinopril [Zestril] 5 mg PO DAILY 05/18/18 [History] Mirtazapine 7.5 mg PO HS 05/18/18 [History] amLODIPine [Norvasc] 10 mg PO DAILY 05/18/18 [History] hydrOXYzine pamoate [Hydroxyzine Pamoate] 25 mg PO TID PRN 05/18/18 [History] Nicotine Patch [Nicoderm] 14 mg TD DAILY patch.[id number] 06/01/18 [Rx] Gabapentin [Neurontin] 800 mg PO TID 15 Days #60 capsule 08/09/18 [Rx] Allergies/Adverse Reactions: Allergy/AdvReac Type Severity Reaction Status Date / Time Amoxicillin Allergy Hives Verified 05/15/18 13:10 Penicillins Allergy Hives Verified 05/15/18 13:10 quetiapine [From Seroquel] Allergy Hives Verified 05/15/18 13:10 chlordiazepoxide AdvReac Gastrointestinal Verified 05/15/18 13:10 [From Librium] Upset Date of admission: 08/04/18 21:49 Primary care physician: PCP NONE Consults: 08/04/18 17:20 Consult to Psychiatry [CONS] Stat Consulting Provider: Psychiatry [place] Reason consult: Other Other reason and/or additional details: SI, alcohol withdrawal 08/04/18 22:51 Consult to Pastoral Services [CONS] Routine Comment: 08/05/18 08:02 Consult to Invasive Line Access Team [CONS] Routine Reason for Consult: Limited IV access Line Type: EPIV 08/06/18 10:27 Consult to Robotics Software Engineer [CONS] Routine Reason for SW Consult: arrange for alcohol rehab Discharging clinician: Gisela Cisneros Keith - Constitutional Vitals: Temp Pulse Resp BP Pulse Ox 98.9 F 63 20 147/78 93 08/09/18 06:37 08/09/18 06:37 08/09/18 06:37 08/09/18 06:37 08/09/18 06:37 General appearance: Present: obese, answers questions appropriately Exam: General: Obese male Head: small area with Follicular inflammation on Back on head Lungs: CTA bilaterally. non-labored breathing. No wheezes, rales, or rhonchi Heart: RRR, +S1 +S2. No murmurs, rubs or cornel GI: abdomen soft, non-tender, non-distended. normoactive bowel sounds. no masses Extremities: warm, peripheral pulses palpable and symmetrical. trace edema, cyanosis, or calf tenderness. Neuro: A&Ox3. no focal deficits. No speech difficulty or abnormality. No tongue fasciculations. Skin: dermatitis change paige Quinones: Not Aggressive and non-confrontational - Patient Status Disposition: Transfer Inpatient Rehab Fac Condition: Good - Discharge Instructions Follow Up With: NONE,PCP [Primary Care Provider] - - Diet and Activity Activity: resume usual activities as tolerated
[2018-08-09] MEDS: Gabapentin 400 MG CAPSULE PO SCH ×2 (16:17→21:04)
[2018-08-09] MEDS: Mirtazapine 15 MG TABLET PO SCH (21:04)
[2018-08-10] MEDS: *HR* Heparin 5,000 UNIT/ML VIAL SQ SCH (05:05)
[2018-08-10 07:56] VITALS: BP 171/93
--- NOTE | 2018-08-10 12:12 | Event Note ---
Date of Encounter: 08/10/18 Time of Encounter: 12:11 Patient left this morning around 9:00. Did not get a chance to see the patient. Patient was awaiting placement for alcohol rehabilitation. Patient left to see his friend in [place] for alcohol rehabilitation.
== END 2018-08-10 09:31 | DRG 897 ==
LOC: EMEROOARM 16:25 → 3ANU 21:49 → SUATTDRO 21:49 → 3ANU 22:29
PROVIDERS: ADMIT Internal Medicine; ATTEND Internal Medicine

== ENCOUNTER 2018-10-14 03:01 | Inpatient (IN) ==
[2018-10-14] MEDS ORDERED: 0.9 % Sodium Chloride 1,000 ML IVC ONE ×2 (03:47→06:07)
[2018-10-14] MEDS ORDERED: *HR* LORazepam 1 MG TABLET PO ONE (03:58)
[2018-10-14 04:06] LABS: Bilirubin,Urine Small (Negative); Blood,Urine Negative (Negative); Clarity,Urine Cloudy (Clear); Color,Urine Dark Yellow (Yellow); Glucose,Urine (UA) Normal (Normal); Ketones,Urine Negative (Negative); Leukocyte Esterase,Urine Negative (Negative); Nitrite,Urine Negative (Negative); Protein,Urine Negative (Neg-Trace); Specific Gravity,Urine < 1.005 (1.010-1.025); Urobilinogen,Urine Normal (Normal)
[2018-10-14 04:09] LABS: Hyaline Casts,Urine None Seen per lpf (None-Few); RBC,Urine 0-3 per hpf (0-3); Squamous Epithelial Cell,Urine None Seen per lpf (None-Few); WBC,Urine 0-3 per hpf (0-3)
--- NOTE | 2018-10-14 04:16 | Emergency Department Note ---
Disposition Referrals: NONE,PCP [Primary Care Provider] - Forms: ED Satisfaction Letter General Adult HPI - General Chief complaint: ED Psychiatric Symptoms Stated complaint: real bad cold, oh and hearing voices Time Seen by Provider: 10/14/18 03:11 Source: patient Limitations: no limitations - History of Present Illness HPI Narrative: chest The patient is a 48 year old male smoker with past medical history of alcohol abuse and HTN presenting to the ED for evaluation of alcohol withdrawal and chest tightness. The patient states he wants to stop drinking alcohol and his son will no longer buy him alcohol. He reports drinking a 12-24 pack of beer per day for the past 10-12 years. He reports he most recently had 3-4 beers yesterday. He states he took a few xanax over the weekend for his symptoms with minimal improvement. He reports he has had a seizure when withdrawing from alcohol 9 months ago. He currently complains of headache, abdominal cramping, nausea, diarrhea, diaphoresis, dry mouth, tremors, and decreased appetite that started over the past couple of days. He reports over the past few days he has also developed a cough and chest tightness. He states he has had dry heaves and vomited "yellow-foam" 3-4 times this evening. He reports visual and auditory hallucinations. He describes the visual hallucinations as shadows and when he looks over to see them they move. He reports his auditory hallucinations consist of voices he cannot make out. He denies any homicidal thoughts, but states he is concerned for his safety and may want to hurt himself. He denies any suicide plan. He denies any hx of psychiatric diagnoses and denies being evaluated by a psychiatrist in the past. He reports he has had psychosis from alcohol withdrawal in the past. Pain Scale: 0 - Related Data Home Medications Medication Instructions Recorded Confirmed Atenolol [Tenormin] 25 mg PO DAILY 05/18/18 05/22/18 Gabapentin [Neurontin] 100 mg PO TID 05/18/18 05/22/18 Lisinopril [Zestril] 5 mg PO DAILY 05/18/18 05/22/18 Mirtazapine 7.5 mg PO HS 05/18/18 05/22/18 amLODIPine [Norvasc] 10 mg PO DAILY 05/18/18 05/22/18 hydrOXYzine pamoate [Hydroxyzine 25 mg PO TID PRN 05/18/18 05/22/18 Pamoate] Previous Rx's Medication Instructions Recorded Nicotine Patch [Nicoderm] 14 mg TD DAILY patch.td24 06/01/18 Allergies Allergy/AdvReac Type Severity Reaction Status Date / Time Amoxicillin Allergy Hives Verified 10/14/18 03:02 Penicillins Allergy Hives Verified 10/14/18 03:02 quetiapine [From Seroquel] Allergy Hives Verified 10/14/18 03:02 chlordiazepoxide AdvReac Gastrointestinal Verified 10/14/18 03:02 [From Librium] Upset Past Medical History - Past Medical History Medical history: Reports: diabetes, hypertension Surgical history: Reports: no surgical history Psychiatric history: Reports: depression, previous psychiatric hospitalization - Social History Smoking Status: Current every day smoker Smokeless Tobacco Status: No Alcohol use: Reports: heavy, recent Drug use: Reports: opiates, marijuana, methamphetamine, IV Drug Use, prescription drug abuse Physical Exam - General Limitations: no limitations General appearance: alert Course Vital Signs Temperature 98.1 F 10/14/18 03:02 Pulse Rate 113 10/14/18 03:02 Respiratory Rate 19 10/14/18 03:02 Blood Pressure 198/106 10/14/18 03:02 O2 Sat by Pulse Oximetry 93 10/14/18 03:02 Temperature 98.1 F 10/14/18 03:02 Pulse Rate 113 10/14/18 03:02 Respiratory Rate 19 10/14/18 03:02 Blood Pressure 198/106 10/14/18 03:02 O2 Sat by Pulse Oximetry 93 10/14/18 03:02 Oxygen Delivery Oxygen Delivery Room Air Medical Decision Making - Lab Data Lab Results 10/14/18 10/14/18 Range/Units 03:00 03:00 Urine Color Dark Yellow (Yellow) Urine Clarity Cloudy A (Clear) Urine pH 6.0 (5.0-8.0) pH Units Ur Specific [place] < 1.005 L (1.010-1.025) Urine Protein Negative (Neg-Trace) mg/dL Urine Glucose (UA) Normal (Normal) mg/dL Urine Ketones Negative (Negative) mg/dL Urine Blood Negative (Negative) Urine Nitrite Negative (Negative) Urine Bilirubin Small H (Negative) Urine Urobilinogen Normal (Normal) mg/dL Ur Leukocyte Esterase Negative (Negative) Ur Drug Screen Interp See Below
[2018-10-14 04:19] LABS: Bacteria,Urine Moderate per hpf (None-Few)
[2018-10-14 04:22] LABS: Amphetamine Screen,Urine Negative ng/mL (Cutoff=1000); Barbiturate Screen,Urine Negative ng/mL (Cutoff=200); Benzodiazepines Screen,Urine Negative ng/mL (Cutoff=200); Cannabinoid Screen,Urine Positive ng/mL (Cutoff = 50); Cocaine Screen,Urine Negative ng/mL (Cutoff= 300); Opiate Screen,Urine Negative ng/mL (Cutoff=300); Phencyclidine Screen,Urine Negative ng/mL (Cutoff=25)
[2018-10-14] MEDS ORDERED: *HR* LORazepam 2 MG/ML VIAL IVP ONE ×2 (05:12→06:13)
--- NOTE | 2018-10-14 05:24 | Emergency Department Note ---
Disposition Clinical Impression: Elevated liver function tests Alcohol withdrawal Qualifiers: Complication of substance-induced condition: with unspecified complication Qualified Code(s): F10.239 - Alcohol dependence with withdrawal, unspecified Disposition: Still a Patient Referrals: NONE,PCP [Primary Care Provider] - Forms: ED Satisfaction Letter Time of Disposition: 06:43 General Adult HPI - General Chief complaint: ED Psychiatric Symptoms Stated complaint: real bad cold, oh and hearing voices Time Seen by Provider: 10/14/18 03:11 Source: patient Limitations: no limitations Nursing Notes Reviewed: Yes Vital Signs Reviewed: Yes - History of Present Illness HPI Narrative: The patient is a 48 year old male smoker with past medical history of alcohol abuse and HTN presenting to the ED for evaluation of alcohol withdrawal . The patient states he wants to stop drinking alcohol and his son will no longer buy him alcohol. He reports drinking a 12-24 pack of beer per day for the past 10-12 years. He reports he most recently had 3-4 beers yesterday (>24 hours since his last drink). He states he took a few xanax over the weekend for his symptoms with minimal improvement. He reports he has had a seizure when withdrawing from alcohol 9 months ago.He reports he has had psychosis from alcohol withdrawal in the past.He reports visual and auditory hallucinations. He describes the visual hallucinations as shadows and when he looks over to see them they move. He reports his auditory hallucinations consist of voices he cannot make out. He denies any homicidal thoughts, but states he is concerned for his safety and may want to hurt himself. He denies any suicide plan. He denies any hx of psychiatr ic diagnoses and denies being evaluated by a psychiatrist in the past. Additionally, he currently complains of headache, abdominal cramping, nausea, diarrhea, diaphoresis, dry mouth, tremors, and decreased appetite that started over the past couple of days. He reports over the past few days he has also developed a cough and chest tightness. He states he has had dry heaves and vomited "yellow-foam" 3-4 times this evening. Pain Scale: 0 - Related Data Home Medications Medication Instructions Recorded Confirmed Atenolol [Tenormin] 25 mg PO DAILY 05/18/18 05/22/18 Gabapentin [Neurontin] 100 mg PO TID 05/18/18 05/22/18 Lisinopril [Zestril] 5 mg PO DAILY 05/18/18 05/22/18 Mirtazapine 7.5 mg PO HS 05/18/18 05/22/18 amLODIPine [Norvasc] 10 mg PO DAILY 05/18/18 05/22/18 hydrOXYzine pamoate [Hydroxyzine 25 mg PO TID PRN 05/18/18 05/22/18 Pamoate] Previous Rx's Medication Instructions Recorded Nicotine Patch [Nicoderm] 14 mg TD DAILY patch.[id number] 06/01/18 Allergies Allergy/AdvReac Type Severity Reaction Status Date / Time Amoxicillin Allergy Hives Verified 10/14/18 03:02 Penicillins Allergy Hives Verified 10/14/18 03:02 quetiapine [From Seroquel] Allergy Hives Verified 10/14/18 03:02 chlordiazepoxide AdvReac Gastrointestinal Verified 10/14/18 03:02 [From Librium] Upset All systems ED: reviewed and negative except as stated. Review of Systems: As Per HPI Constitutional: Reports: as per HPI Eyes: Denies: eye pain ENT ED: Denies: ear pain Cardiovascular: Reports: as per HPI Respiratory: Reports: as per HPI Gastrointestinal: Denies: abdominal pain, nausea, vomiting Genitourinary: Denies: dysuria Musculoskeletal: Denies: back pain Neurological: Reports: as per HPI Psychiatric: Reports: as per HPI Endocrine: Denies: fatigue Hematological/Lymphatic: Denies: lymphadenopathy Allergic/Immunologic: Denies: facial swelling Past Medical History - Past Medical History Medical history: Reports: diabetes, hypertension Surgical history: Reports: no surgical history Psychiatric history: Reports: depression, previous psychiatric hospitalization - Social History Smoking Status: Current every day smoker Smokeless Tobacco Status: No Alcohol use: Reports: heavy, recent Drug use: Reports: opiates, marijuana, methamphetamine, IV Drug Use, prescription drug abuse Physical Exam - General Limitations: no limitations General appearance: alert, in no apparent distress - Head Head exam: normocephalic - Eye Eye exam: Present: EOMI. Absent: conjunctival injection - ENT ENT exam: mucous membranes moist - Neck Neck exam: Present: full ROM - Respiratory Respiratory exam: Present: normal lung sounds bilaterally. Absent: respiratory distress - Cardiovascular Cardiovascular exam: Present: normal rhythm, tachycardia - Abdominal Exam Abdominal exam: Present: soft, Non-Tender - Extremities Exam Extremities exam: Present: normal inspection, full ROM, normal capillary refill - Back Exam Back exam: Present: full ROM - Neurological Exam Neurological exam: Present: alert - Expanded Neurological Exam Coma Scale Eye Opening: Spontaneous Coma Scale Motor Response: Obeys Commands Coma Scale Verbal Response: Oriented Coma Scale Total: 15 - Psychiatric Psychiatric exam: Present: normal affect - Skin Skin exam: Present: warm Course Course Narrative: 48-year-old male with known history of ethanol abuse iambulats to exam room from home with concern for alcohol withdrawal. He has described he has gone through withdrawal in the past. He also describes URI and flu like symptoms lately. He has not had a drink in over 24 hours. He is not currently hallucinating but describes seeing shadows, and has vague suicidal ideation. On examination patient is alert and oriented. He appears anxious but does not appear intoxicated. Afebrile. Slightly tachycardic and diaphoretic but otherwise in no acute distress. Sightly jaundice. I did have a discussion with patient and he does express some concern for hallucinations and depression. I Do feel that he would benefit from a psychiatric evaluation. We will attempt to m edically clear him for this. He additionally has a history of DTs, no evidence of any seizure-like activity at this point. We will plan for monitoring and benzodiazepines as needed. Fluids ordered. Work up initiated. Librium initially ordered but patient mentions allergy (GI upset). Ativan or dered. - Reevaluation(s) Reevaluation #1: Pt appears to be responding to ATivan. Pt has elevated bili and LFTs. Pt has known history of hep C. These levels are significantly increased since previous readings approx [address] with Dr. Oseguera. Will plan for medical admission, pending CT scan. Dr. Oseguera ordered ammonia, hepatitis panel. Due to shift change care of this patient will be transferred over Keo Villa CNP and likely daytime attending physician. Please see their documentation for Additional details. Time: 06:37 Vital Signs Temperature 98.1 F 10/14/18 03:02 Pulse Rate 113 10/14/18 03:02 Respiratory Rate 19 10/14/18 03:02 Blood Pressure 198/106 10/14/18 03:02 O2 Sat by Pulse Oximetry 93 10/14/18 03:02 Temperature 98.1 F 10/14/18 03:02 Pulse Rate 113 10/14/18 03:02 Respiratory Rate 19 10/14/18 03:02 Blood Pressure 198/106 10/14/18 03:02 O2 Sat by Pulse Oximetry 93 10/14/18 03:02 Oxygen Delivery Oxygen Delivery Room Air Medical Decision Making - MDM Narrative Medical decision making narrative: Chest X-Ray 10/14/18 03:43 IMPRESSION: No airspace disease suspicious for pneumonia. Shallow inspiratory effort. D/ / Mathew Mathis / Mathew Mathis Interpreting Provider: Mathew Mathis Laboratory Tests 10/14/18 10/14/18 10/14/18 03:00 03:00 05:03 WBC 8.0 RBC 4.94 Hgb 14.4 Hct 42.1 MCV 85.2 MCH 29.1 MCHC 34.2 RDW 17.3 H Plt Count 161 MPV 10.7 Immature Gran % 0.4 Seg Neutrophils % 56.1 Lymphocytes % 31.0 Monocytes % 10.3 Eosinophils % 1.5 Basophils % 0.7 Neutrophils # 4.5 Lymphocytes # 2.5 Monocytes # 0.8 Eosinophils # 0.1 Basophils # 0.1 Reactive Lymphocytes Present A Platelet Estimate Normal Anisocytosis 1+ A Sodium Potassium Chloride Carbon Dioxide BUN Creatinine Est GFR ( Amer) Est GFR (Non-Af Amer) BUN/Creatinine Ratio Glucose Calculated Osmolality Calcium Total Bilirubin Direct Bilirubin Indirect Bilirubin AST ALT Alkaline Phosphatase Ammonia Serum Total Protein Albumin Globulin Albumin/Globulin Ratio Lipase Urine Color Dark Yellow Urine Clarity Cloudy A Urine pH 6.0 Ur Specific [place] < 1.005 L Urine Protein Negative Urine Glucose (UA) Normal Urine Ketones Negative Urine Blood Negative Urine Nitrite Negative Urine Bilirubin Small H Urine Urobilinogen Normal Ur Leukocyte Esterase Negative Urine Microscopic RBC 0-3 Urine Microscopic WBC 0-3 Ur Squamous Epith Cells None Seen Urine Bacteria Moderate H Hyaline Casts None Seen Salicylates Urine Opiates Screen Negative Acetaminophen Ur Barbiturates Screen Negative Ur Phencyclidine Scrn Negative Ur Amphetamines Screen Negative U Benzodiazepines Scrn Negative Urine Cocaine Screen Negative U Marijuana (THC) Screen Positive H Ur Drug Screen Interp See Below Ethyl Alcohol 10/14/18 10/14/18 05:03 06:03 WBC RBC Hgb Hct MCV MCH MCHC RDW Plt Count MPV Immature Gran % Seg Neutrophils % Lymphocytes % Monocytes % Eosinophils % Basophils % Neutrophils # Lymphocytes # Monocytes # Eosinophils # Basophils # Reactive Lymphocytes Platelet Estimate Anisocytosis Sodium 136 Potassium 2.9 L Chloride 101 Carbon Dioxide 24 BUN 14 Creatinine 0.82 Est GFR ( Amer) > 60 Est GFR (Non-Af Amer) > 60 BUN/Creatinine Ratio 17 Glucose 134 H Calculated Osmolality 284 Calcium 8.9 Total Bilirubin 6.5 H Direct Bilirubin 4.6 H Indirect Bilirubin 1.9 H AST 1553 H ALT > 500 H Alkaline Phosphatase 159 H Ammonia 98 H Serum Total Protein 7.4 Albumin 3.5 Globulin 3.9 H Albumin/Globulin Ratio 0.9 L Lipase 52 Urine Color Urine Clarity Urine pH Ur Specific [place] Urine Protein Urine Glucose (UA) Urine Ketones Urine Blood Urine Nitrite Urine Bilirubin Urine Urobilinogen Ur Leukocyte Esterase Urine Microscopic RBC Urine Microscopic WBC Ur Squamous Epith Cells Urine Bacteria Hyaline Casts Salicylates < 2.5 L Urine Opiates Screen Acetaminophen < 10 L Ur Barbiturates Screen Ur Phencyclidine Scrn Ur Amphetamines Screen U Benzodiazepines Scrn Urine Cocaine Screen U Marijuana (THC) Screen Ur Drug Screen Interp Ethyl Alcohol < 10 - Lab Data Lab results reviewed: Yes I reviewed the patient's lab results. Result diagrams: 10/14/18 05:03 10/14/18 05:03 Lab Results 10/14/18 10/14/18 10/14/18 Range/Units 03:00 03:00 05:03 WBC 8.0 (4.3-11.1) K/mcL RBC 4.94 (4.19-5.50) M/mcL Hgb 14.4 (12.9-16.9) g/dL Hct 42.1 (37.5-50.1) % MCV 85.2 (83.0-100.0) fL MCH 29.1 (28.0-33.3) pg MCHC 34.2 (31.6-35.5) g/dL RDW 17.3 H (11.5-14.5) % Plt Count 161 (140-400) K/mcL MPV 10.7 (9.4-12.4) fL Immature Gran % 0.4 (0-4) % Seg Neutrophils % 56.1 % Lymphocytes % 31.0 % Monocytes % 10.3 % Eosinophils % 1.5 % Basophils % 0.7 % Neutrophils # 4.5 (1.6-8.9) K/mcL Lymphocytes # 2.5 (0.6-4.6) K/mcL Monocytes # 0.8 (0.0-1.3) K/mcL Eosinophils # 0.1 (0.0-0.6) K/mcL Basophils # 0.1 (0.0-0.2) K/mcL Reactive Lymphocytes Present A (Not Present) Platelet Estimate Normal (Normal) Anisocytosis 1+ A (Not Present) Sodium (136-145) mEq/L Potassium (3.5-5.1) mEq/L Chloride (98-107) mEq/L Carbon Dioxide (23-29) mEq/L BUN (6-20) mg/dL Creatinine (0.70-1.30) mg/dL Est GFR ( Amer) (> 60) Est GFR (Non-Af Amer) (> 60) BUN/Creatinine Ratio (6-26) Glucose (70-105) mg/dL Calculated Osmolality (280-300) Calcium (8.6-10.3) mg/dL Total Bilirubin (0.3-1.0) mg/dL Direct Bilirubin (0.0-0.2) mg/dL Indirect Bilirubin (0.0-1.2) mg/dL AST (13-39) Units/L ALT (7-52) Units/L Alkaline Phosphatase (34-104) Units/L Ammonia (16-53) mcmol/L Serum Total Protein (6.4-8.9) g/dL Albumin (3.5-5.7) g/dL Globulin (2.4-3.5) g/dL Albumin/Globulin Ratio (1.1-2.2) Urine Color Dark Yellow (Yellow) Urine Clarity Cloudy A (Clear) Urine pH 6.0 (5.0-8.0) pH Units Ur Specific [place] < 1.005 L (1.010-1.025) Urine Protein Negative (Neg-Trace) mg/dL Urine Glucose (UA) Normal (Normal) mg/dL Urine Ketones Negative (Negative) mg/dL Urine Blood Negative (Negative) Urine Nitrite Negative (Negative) Urine Bilirubin Small H (Negative) Urine Urobilinogen Normal (Normal) mg/dL Ur Leukocyte Esterase Negative (Negative) Urine Microscopic RBC 0-3 (0-3) per hpf Urine Microscopic WBC 0-3 (0-3) per hpf Ur Squamous Epith Cells None Seen (None-Few) per lpf Urine Bacteria Moderate H (None-Few) per hpf Hyaline Casts None Seen (None-Few) per lpf Salicylates (15.0-30.0) mg/dL Urine Opiates Screen Negative (Rthfmi=561) ng/mL Acetaminophen (10-20) mcg/mL Ur Barbiturates Screen Negative (Mturft=249) ng/mL Ur Phencyclidine Scrn Negative (Cutoff=25) ng/mL Ur Amphetamines Screen Negative (Fjpvqv=3632) ng/mL U Benzodiazepines Scrn Negative (Tysnlt=626) ng/mL Urine Cocaine Screen Negative (Cutoff= 300) ng/mL U Marijuana (THC) Screen Positive H (Cutoff = 50) ng/mL Ur Drug Screen Interp See Below Ethyl Alcohol (Less than 10) mg/dL 10/14/18 10/14/18 Range/Units 05:03 06:03 WBC (4.3-11.1) K/mcL RBC (4.19-5.50) M/mcL Hgb (12.9-16.9) g/dL Hct (37.5-50.1) % MCV (83.0-100.0) fL MCH (28.0-33.3) pg MCHC (31.6-35.5) g/dL RDW (11.5-14.5) % Plt Count (140-400) K/mcL MPV (9.4-12.4) fL Immature Gran % (0-4) % Seg Neutrophils % % Lymphocytes % % Monocytes % % Eosinophils % % Basophils % % Neutrophils # (1.6-8.9) K/mcL Lymphocytes # (0.6-4.6) K/mcL Monocytes # (0.0-1.3) K/mcL Eosinophils # (0.0-0.6) K/mcL Basophils # (0.0-0.2) K/mcL Reactive Lymphocytes (Not Present) Platelet Estimate (Normal) Anisocytosis (Not Present) Sodium 136 (136-145) mEq/L Potassium 2.9 L (3.5-5.1) mEq/L Chloride 101 (98-107) mEq/L Carbon Dioxide 24 (23-29) mEq/L BUN 14 (6-20) mg/dL Creatinine 0.82 (0.70-1.30) mg/dL Est GFR ( Amer) > 60 (> 60) Est GFR (Non-Af Amer) > 60 (> 60) BUN/Creatinine Ratio 17 (6-26) Glucose 134 H (70-105) mg/dL Calculated Osmolality 284 (280-300) Calcium 8.9 (8.6-10.3) mg/dL Total Bilirubin 6.5 H (0.3-1.0) mg/dL Direct Bilirubin 4.6 H (0.0-0.2) mg/dL Indirect Bilirubin 1.9 H (0.0-1.2) mg/dL AST 1553 H (13-39) Units/L ALT > 500 H (7-52) Units/L Alkaline Phosphatase 159 H (34-104) Units/L Ammonia 98 H (16-53) mcmol/L Serum Total Protein 7.4 (6.4-8.9) g/dL Albumin 3.5 (3.5-5.7) g/dL Globulin 3.9 H (2.4-3.5) g/dL Albumin/Globulin Ratio 0.9 L (1.1-2.2) Urine Color (Yellow) Urine Clarity (Clear) Urine pH (5.0-8.0) pH Units Ur Specific [place] (1.010-1.025) Urine Protein (Neg-Trace) mg/dL Urine Glucose (UA) (Normal) mg/dL Urine Ketones (Negative) mg/dL Urine Blood (Negative) Urine Nitrite (Negative) Urine Bilirubin (Negative) Urine Urobilinogen (Normal) mg/dL Ur Leukocyte Esterase (Negative) Urine Microscopic RBC (0-3) per hpf Urine Microscopic WBC (0-3) per hpf Ur Squamous Epith Cells (None-Few) per lpf Urine Bacteria (None-Few) per hpf Hyaline Casts (None-Few) per lpf Salicylates < 2.5 L (15.0-30.0) mg/dL Urine Opiates Screen (Epivtt=606) ng/mL Acetaminophen < 10 L (10-20) mcg/mL Ur Barbiturates Screen (Krngir=829) ng/mL Ur Phencyclidine Scrn (Cutoff=25) ng/mL Ur Amphetamines Screen (Zcvcjb=4285) ng/mL U Benzodiazepines Scrn (Ipiafj=005) ng/mL Urine Cocaine Screen (Cutoff= 300) ng/mL U Marijuana (THC) Screen (Cutoff = 50) ng/mL Ur Drug Screen Interp Ethyl Alcohol < 10 (Less than 10) mg/dL - Radiology Data Radiology results reviewed: Yes I reviewed the patient's radiology results.
[2018-10-14 05:25] LABS: Basophils # 0.1 K/mcL (0.0-0.2); Basophils % 0.7 %; Eosinophils # 0.1 K/mcL (0.0-0.6); Eosinophils % 1.5 %; Hematocrit 42.1 % (37.5-50.1); Hemoglobin 14.4 g/dL (12.9-16.9); Immature Granulocytes % 0.4 % (0-4); Lymphocytes # 2.5 K/mcL (0.6-4.6); Mean Corpuscular HGB Conc 34.2 g/dL (31.6-35.5); Mean Corpuscular Hemoglobin 29.1 pg (28.0-33.3); Mean Corpuscular Volume 85.2 fL (83.0-100.0); Mean Platelet Volume 10.7 fL (9.4-12.4); Monocytes # 0.8 K/mcL (0.0-1.3); Monocytes % 10.3 %; Neutrophils # 4.5 K/mcL (1.6-8.9); Platelet Count 161 K/mcL (140-400); Red Blood Count 4.94 M/mcL (4.19-5.50); Red Cell Distribution Width 17.3 % (11.5-14.5); Segmented Neutrophils % 56.1 %
[2018-10-14 05:41] LABS: Anisocytosis 1+ (Not Present); Platelet Estimate Normal (Normal); Reactive Lymphocytes Present (Not Present)
[2018-10-14 05:42] LABS: Acetaminophen < 10 mcg/mL (10-20); Alanine Aminotransferase > 500 Units/L (7-52); Albumin 3.5 g/dL (3.5-5.7); Albumin/Globulin Ratio 0.9 (1.1-2.2); Alkaline Phosphatase 159 Units/L (34-104); BUN/Creatinine Ratio 17 (6-26); Bilirubin,Direct 4.6 mg/dL (0.0-0.2); Bilirubin,Indirect 1.9 mg/dL (0.0-1.2); Bilirubin,Total 6.5 mg/dL (0.3-1.0); Blood Urea Nitrogen 14 mg/dL (6-20); Calcium 8.9 mg/dL (8.6-10.3); Carbon Dioxide 24 mEq/L (23-29); Chloride 101 mEq/L (98-107); Ethanol < 10 mg/dL (Less than 10); Globulin 3.9 g/dL (2.4-3.5); Glucose 134 mg/dL (70-105); Osmolality,Calculated 284 (280-300); Potassium 2.9 mEq/L (3.5-5.1); Salicylate < 2.5 mg/dL (15.0-30.0); Sodium 136 mEq/L (136-145); Total Protein 7.4 g/dL (6.4-8.9); eGFR For Non-African Americans > 60 (> 60)
[2018-10-14 06:05] LABS: Aspartate Amino Transferase 1553 Units/L (13-39)
[2018-10-14] MEDS ORDERED: Isovue-370 500 ML BOTTLE IVP ONE (06:06)
[2018-10-14] MEDS ORDERED: Thiamine (B-1) 100 MG in 0.9 % Sodium Chloride 50 ML IVPB ONE (06:16)
[2018-10-14 06:42] LABS: Lipase 52 Units/L (11-82)
--- NOTE | 2018-10-14 06:54 | Emergency Department Note ---
Disposition Clinical Impression: Elevated liver function tests Alcohol withdrawal Qualifiers: Complication of substance-induced condition: with unspecified complication Qualified Code(s): F10.239 - Alcohol dependence with withdrawal, unspecified Disposition: Still a Patient Condition: Fair Referrals: NONE,PCP [Primary Care Provider] - Forms: ED Satisfaction Letter General Adult HPI - General Chief complaint: ED Psychiatric Symptoms Stated complaint: real bad cold, oh and hearing voices Time Seen by Provider: 10/14/18 03:11 Source: patient Limitations: no limitations Nursing Notes Reviewed: Yes Vital Signs Reviewed: Yes - History of Present Illness Pain Scale: 0 - Related Data Home Medications Medication Instructions Recorded Confirmed Atenolol [Tenormin] 25 mg PO DAILY 05/18/18 05/22/18 Gabapentin [Neurontin] 100 mg PO TID 05/18/18 05/22/18 Lisinopril [Zestril] 5 mg PO DAILY 05/18/18 05/22/18 Mirtazapine 7.5 mg PO HS 05/18/18 05/22/18 amLODIPine [Norvasc] 10 mg PO DAILY 05/18/18 05/22/18 hydrOXYzine pamoate [Hydroxyzine 25 mg PO TID PRN 05/18/18 05/22/18 Pamoate] Previous Rx's Medication Instructions Recorded Nicotine Patch [Nicoderm] 14 mg TD DAILY patch.td24 06/01/18 Allergies Allergy/AdvReac Type Severity Reaction Status Date / Time Amoxicillin Allergy Hives Verified 10/14/18 03:02 Penicillins Allergy Hives Verified 10/14/18 03:02 quetiapine [From Seroquel] Allergy Hives Verified 10/14/18 03:02 chlordiazepoxide AdvReac Gastrointestinal Verified 10/14/18 03:02 [From Librium] Upset Constitutional: Reports: as per HPI Eyes: Denies: eye pain ENT ED: Denies: ear pain Cardiovascular: Reports: as per HPI Respiratory: Reports: as per HPI Gastrointestinal: Denies: abdominal pain, nausea, vomiting Genitourinary: Denies: dysuria Musculoskeletal: Denies: back pain Neurological: Reports: as per HPI Psychiatric: Reports: as per HPI Endocrine: Denies: fatigue Hematological/Lymphatic: Denies: lymphadenopathy Allergic/Immunologic: Denies: facial swelling Past Medical History - Past Medical History Medical history: Reports: diabetes, hypertension Surgical history: Reports: no surgical history Psychiatric history: Reports: depression, previous psychiatric hospitalization - Social History Smoking Status: Current every day smoker Smokeless Tobacco Status: No Alcohol use: Reports: heavy, recent Drug use: Reports: opiates, marijuana, methamphetamine, IV Drug Use, prescription drug abuse Physical Exam - General Limitations: no limitations General appearance: alert, in no apparent distress Course Vital Signs Temperature 98.1 F 10/14/18 03:02 Pulse Rate 113 10/14/18 03:02 Respiratory Rate 19 10/14/18 03:02 Blood Pressure 198/106 10/14/18 03:02 O2 Sat by Pulse Oximetry 93 10/14/18 03:02 Temperature 98.1 F 10/14/18 03:02 Pulse Rate 113 10/14/18 03:02 Respiratory Rate 19 10/14/18 03:02 Blood Pressure 198/106 10/14/18 03:02 O2 Sat by Pulse Oximetry 93 10/14/18 03:02 Oxygen Delivery Oxygen Delivery Room Air Medical Decision Making - Medical Records Medical records reviewed: Yes I reviewed the patient's medical records. - Lab Data Lab results reviewed: Yes I reviewed the patient's lab results. Result diagrams: 10/14/18 05:03 10/14/18 05:03 Lab Results 10/14/18 10/14/18 10/14/18 Range/Units 03:00 03:00 05:03 WBC 8.0 (4.3-11.1) K/mcL RBC 4.94 (4.19-5.50) M/mcL Hgb 14.4 (12.9-16.9) g/dL Hct 42.1 (37.5-50.1) % MCV 85.2 (83.0-100.0) fL MCH 29.1 (28.0-33.3) pg MCHC 34.2 (31.6-35.5) g/dL RDW 17.3 H (11.5-14.5) % Plt Count 161 (140-400) K/mcL MPV 10.7 (9.4-12.4) fL Immature Gran % 0.4 (0-4) % Seg Neutrophils % 56.1 % Lymphocytes % 31.0 % Monocytes % 10.3 % Eosinophils % 1.5 % Basophils % 0.7 % Neutrophils # 4.5 (1.6-8.9) K/mcL Lymphocytes # 2.5 (0.6-4.6) K/mcL Monocytes # 0.8 (0.0-1.3) K/mcL Eosinophils # 0.1 (0.0-0.6) K/mcL Basophils # 0.1 (0.0-0.2) K/mcL Reactive Lymphocytes Present A (Not Present) Platelet Estimate Normal (Normal) Anisocytosis 1+ A (Not Present) Sodium (136-145) mEq/L Potassium (3.5-5.1) mEq/L Chloride (98-107) mEq/L Carbon Dioxide (23-29) mEq/L BUN (6-20) mg/dL Creatinine (0.70-1.30) mg/dL Est GFR ( Amer) (> 60) Est GFR (Non-Af Amer) (> 60) BUN/Creatinine Ratio (6-26) Glucose (70-105) mg/dL Calculated Osmolality (280-300) Calcium (8.6-10.3) mg/dL Total Bilirubin (0.3-1.0) mg/dL Direct Bilirubin (0.0-0.2) mg/dL Indirect Bilirubin (0.0-1.2) mg/dL AST (13-39) Units/L ALT (7-52) Units/L Alkaline Phosphatase (34-104) Units/L Ammonia (16-53) mcmol/L Serum Total Protein (6.4-8.9) g/dL Albumin (3.5-5.7) g/dL Globulin (2.4-3.5) g/dL Albumin/Globulin Ratio (1.1-2.2) Lipase (11-82) Units/L Urine Color Dark Yellow (Yellow) Urine Clarity Cloudy A (Clear) Urine pH 6.0 (5.0-8.0) pH Units Ur Specific [place] < 1.005 L (1.010-1.025) Urine Protein Negative (Neg-Trace) mg/dL Urine Glucose (UA) Normal (Normal) mg/dL Urine Ketones Negative (Negative) mg/dL Urine Blood Negative (Negative) Urine Nitrite Negative (Negative) Urine Bilirubin Small H (Negative) Urine Urobilinogen Normal (Normal) mg/dL Ur Leukocyte Esterase Negative (Negative) Urine Microscopic RBC 0-3 (0-3) per hpf Urine Microscopic WBC 0-3 (0-3) per hpf Ur Squamous Epith Cells None Seen (None-Few) per lpf Urine Bacteria Moderate H (None-Few) per hpf Hyaline Casts None Seen (None-Few) per lpf Salicylates (15.0-30.0) mg/dL Urine Opiates Screen Negative (Topupl=134) ng/mL Acetaminophen (10-20) mcg/mL Ur Barbiturates Screen Negative (Xmfdcy=810) ng/mL Ur Phencyclidine Scrn Negative (Cutoff=25) ng/mL Ur Amphetamines Screen Negative (Befojk=5445) ng/mL U Benzodiazepines Scrn Negative (Kxnotj=425) ng/mL Urine Cocaine Screen Negative (Cutoff= 300) ng/mL U Marijuana (THC) Screen Positive H (Cutoff = 50) ng/mL Ur Drug Screen Interp See Below Ethyl Alcohol (Less than 10) mg/dL 10/14/18 10/14/18 Range/Units 05:03 06:03 WBC (4.3-11.1) K/mcL RBC (4.19-5.50) M/mcL Hgb (12.9-16.9) g/dL Hct (37.5-50.1) % MCV (83.0-100.0) fL MCH (28.0-33.3) pg MCHC (31.6-35.5) g/dL RDW (11.5-14.5) % Plt Count (140-400) K/mcL MPV (9.4-12.4) fL Immature Gran % (0-4) % Seg Neutrophils % % Lymphocytes % % Monocytes % % Eosinophils % % Basophils % % Neutrophils # (1.6-8.9) K/mcL Lymphocytes # (0.6-4.6) K/mcL Monocytes # (0.0-1.3) K/mcL Eosinophils # (0.0-0.6) K/mcL Basophils # (0.0-0.2) K/mcL Reactive Lymphocytes (Not Present) Platelet Estimate (Normal) Anisocytosis (Not Present) Sodium 136 (136-145) mEq/L Potassium 2.9 L (3.5-5.1) mEq/L Chloride 101 (98-107) mEq/L Carbon Dioxide 24 (23-29) mEq/L BUN 14 (6-20) mg/dL Creatinine 0.82 (0.70-1.30) mg/dL Est GFR ( Amer) > 60 (> 60) Est GFR (Non-Af Amer) > 60 (> 60) BUN/Creatinine Ratio 17 (6-26) Glucose 134 H (70-105) mg/dL Calculated Osmolality 284 (280-300) Calcium 8.9 (8.6-10.3) mg/dL Total Bilirubin 6.5 H (0.3-1.0) mg/dL Direct Bilirubin 4.6 H (0.0-0.2) mg/dL Indirect Bilirubin 1.9 H (0.0-1.2) mg/dL AST 1553 H (13-39) Units/L ALT > 500 H (7-52) Units/L Alkaline Phosphatase 159 H (34-104) Units/L Ammonia 98 H (16-53) mcmol/L Serum Total Protein 7.4 (6.4-8.9) g/dL Albumin 3.5 (3.5-5.7) g/dL Globulin 3.9 H (2.4-3.5) g/dL Albumin/Globulin Ratio 0.9 L (1.1-2.2) Lipase 52 (11-82) Units/L Urine Color (Yellow) Urine Clarity (Clear) Urine pH (5.0-8.0) pH Units Ur Specific [place] (1.010-1.025) Urine Protein (Neg-Trace) mg/dL Urine Glucose (UA) (Normal) mg/dL Urine Ketones (Negative) mg/dL Urine Blood (Negative) Urine Nitrite (Negative) Urine Bilirubin (Negative) Urine Urobilinogen (Normal) mg/dL Ur Leukocyte Esterase (Negative) Urine Microscopic RBC (0-3) per hpf Urine Microscopic WBC (0-3) per hpf Ur Squamous Epith Cells (None-Few) per lpf Urine Bacteria (None-Few) per hpf Hyaline Casts (None-Few) per lpf Salicylates < 2.5 L (15.0-30.0) mg/dL Urine Opiates Screen (Kmyful=603) ng/mL Acetaminophen < 10 L (10-20) mcg/mL Ur Barbiturates Screen (Xpiycj=637) ng/mL Ur Phencyclidine Scrn (Cutoff=25) ng/mL Ur Amphetamines Screen (Xenyzp=2883) ng/mL U Benzodiazepines Scrn (Kychko=305) ng/mL Urine Cocaine Screen (Cutoff= 300) ng/mL U Marijuana (THC) Screen (Cutoff = 50) ng/mL Ur Drug Screen Interp Ethyl Alcohol < 10 (Less than 10) mg/dL Attestation Statement - Attestation Attestation: I, Adrian Oseguera MD, personally evaluated this patient and discussed their management with the midlevel provicer, PAC/[employer]CTION [employer]OGRAPHER. I reviewed the midlevel provider's note and agree with the documented findings, medical decision making, and plan of care. 48-year-old male presents to the emergency department with multiple complaints. He is alcoholic and normally drinks a 12 pack of beer daily. He states he has not had any beer for the last 36 hours. He complains of feeling extremely nervous and anxious and shaky and jittery. Some hallucinations which he descr ibes as seeing shadows and things moving. Patient also complains that he has a "real bad cold". He states this started 2 or 3 days ago. He feels congested and short of breath with tightness in his chest. He has had a cough. No definite fever. He also complains of stomach cramps for the past 2-3 days. Nausea with some dry heaves but no productive vomiting. No GI bleed symptoms. Patient has a history of hepatitis C. On examination patient is a well-developed obese male in no acute distress. He is somewhat anxious. He is alert and oriented 3. There is no cyanosis or diaphoresis at time of my exam. Breath sounds are clear and equal bilaterally. Heart regular rate and rhythm. Abdomen soft with mild diffuse tenderness. Bowel sounds present. Labs reviewed. At shift change patient is still awaiting a CT of the abdomen and pelvis and hepatitis panel. Plan is to consult GI after results are all back regarding whether patient is acceptable to remain at this facility. At shift change patient is signed out to the oncoming dayshift physician, Dr. Ann Guevara.
[2018-10-14 08:08] LABS: INR 1.3; Prothrombin Time 14.7 Seconds (9.4-12.1)
[2018-10-14 08:10] LABS: Activated Partial Thrombo Time 48.9 Seconds (26.0-36.0)
--- NOTE | 2018-10-14 08:32 | Emergency Department Note ---
Disposition Clinical Impression: Acute cholecystitis, Elevated liver function tests, Hallucination Alcohol withdrawal Qualifiers: Complication of substance-induced condition: with unspecified complication Qualified Code(s): F10.239 - Alcohol dependence with withdrawal, unspecified Disposition: Admitted As Inpatient Condition: Fair Referrals: NONE,PCP [Primary Care Provider] - Forms: ED Satisfaction Letter General Adult HPI - General Chief complaint: ED Psychiatric Symptoms Stated complaint: real bad cold, oh and hearing voices Time Seen by Provider: 10/14/18 03:11 Source: patient Limitations: no limitations - History of Present Illness Pain Scale: 0 - Related Data Home Medications Medication Instructions Recorded Confirmed Atenolol [Tenormin] 25 mg PO DAILY 05/18/18 05/22/18 Gabapentin [Neurontin] 100 mg PO TID 05/18/18 05/22/18 Lisinopril [Zestril] 5 mg PO DAILY 05/18/18 05/22/18 Mirtazapine 7.5 mg PO HS 05/18/18 05/22/18 amLODIPine [Norvasc] 10 mg PO DAILY 05/18/18 05/22/18 hydrOXYzine pamoate [Hydroxyzine 25 mg PO TID PRN 05/18/18 05/22/18 Pamoate] Previous Rx's Medication Instructions Recorded Nicotine Patch [Nicoderm] 14 mg TD DAILY patch.td24 06/01/18 Allergies Allergy/AdvReac Type Severity Reaction Status Date / Time Amoxicillin Allergy Hives Verified 10/14/18 03:02 Penicillins Allergy Hives Verified 10/14/18 03:02 quetiapine [From Seroquel] Allergy Hives Verified 10/14/18 03:02 chlordiazepoxide AdvReac Gastrointestinal Verified 10/14/18 03:02 [From Librium] Upset Constitutional: Reports: as per HPI Eyes: Denies: eye pain ENT ED: Denies: ear pain Cardiovascular: Reports: as per HPI Respiratory: Reports: as per HPI Gastrointestinal: Denies: abdominal pain, nausea, vomiting Genitourinary: Denies: dysuria Musculoskeletal: Denies: back pain Neurological: Reports: as per HPI Psychiatric: Reports: as per HPI Endocrine: Denies: fatigue Hematological/Lymphatic: Denies: lymphadenopathy Allergic/Immunologic: Denies: facial swelling Past Medical History - Past Medical History Medical history: Reports: diabetes, hypertension Surgical history: Reports: no surgical history Psychiatric history: Reports: depression, previous psychiatric hospitalization - Social History Smoking Status: Current every day smoker Smokeless Tobacco Status: No Alcohol use: Reports: heavy, recent Drug use: Reports: opiates, marijuana, methamphetamine, IV Drug Use, prescription drug abuse Physical Exam - General Limitations: no limitations General appearance: alert, in no apparent distress Course Vital Signs Temperature 98.1 F 10/14/18 03:02 Pulse Rate 113 10/14/18 03:02 Respiratory Rate 10/14/18 03:02 Blood Pressure 198/106 10/14/18 03:02 O2 Sat by Pulse Oximetry 93 10/14/18 03:02 Temperature 98.1 F 10/14/18 03:02 Pulse Rate 113 10/14/18 03:02 Respiratory Rate 10/14/18 03:02 Blood Pressure 198/106 10/14/18 03:02 O2 Sat by Pulse Oximetry 93 10/14/18 03:02 Oxygen Delivery Oxygen Delivery Room Air Medical Decision Making - MDM Narrative Medical decision making narrative: 48 year old male with history of Hep C, alcohol abuse presents with alcohol withdraw. Pt stated he usually drinks 12 beers a day. The last time drinking was 24 hours ago. Pt reported voice and visual hallucination, he complains of sweating and shaking, abdominal cramping. No nausea and vomiting. pt reported s uicidal thought. Pt reported he bought pain meds, Benzo from street before. Labs: TB 6.5, DB 4.5, AST 1500, ALT>500, lipase negative. PT 14.8 INR 1.3 PTT 48, Alcohol level <10. abd ct: Mild pericholecystic inflammation questionable for acute cholecystitis. Spoke with general surgeon Dr. Garcia. He suggested to order GB ultrasound and admit pt in hospital. He will see the patient in the [facility] or. Spoke with Hospitalist Dr. Keith. Pt is accepted. Dr. Oseguera and Dr. Guevara have seen the patient and agree the above plan. - Lab Data Lab results reviewed: Yes I reviewed the patient's lab results. Result diagrams: 10/14/18 05:03 10/14/18 05:03 Lab Results 10/14/18 10/14/18 10/14/18 Range/Units 03:00 03:00 05:03 WBC 8.0 (4.3-11.1) K/mcL RBC 4.94 (4.19-5.50) M/mcL Hgb 14.4 (12.9-16.9) g/dL Hct 42.1 (37.5-50.1) % MCV 85.2 (83.0-100.0) fL MCH 29.1 (28.0-33.3) pg MCHC 34.2 (31.6-35.5) g/dL RDW 17.3 H (11.5-14.5) % Plt Count 161 (140-400) K/mcL MPV 10.7 (9.4-12.4) fL Immature Gran % 0.4 (0-4) % Seg Neutrophils % 56.1 % Lymphocytes % 31.0 % Monocytes % 10.3 % Eosinophils % 1.5 % Basophils % 0.7 % Neutrophils # 4.5 (1.6-8.9) K/mcL Lymphocytes # 2.5 (0.6-4.6) K/mcL Monocytes # 0.8 (0.0-1.3) K/mcL Eosinophils # 0.1 (0.0-0.6) K/mcL Basophils # 0.1 (0.0-0.2) K/mcL Reactive Lymphocytes Present A (Not Present) Platelet Estimate Normal (Normal) Anisocytosis 1+ A (Not Present) PT (9.4-12.1) Seconds INR APTT (26.0-36.0) Seconds Sodium (136-145) mEq/L Potassium (3.5-5.1) mEq/L Chloride (98-107) mEq/L Carbon Dioxide (23-29) mEq/L BUN (6-20) mg/dL Creatinine (0.70-1.30) mg/dL Est GFR ( Amer) (> 60) Est GFR (Non-Af Amer) (> 60) BUN/Creatinine Ratio (6-26) Glucose (70-105) mg/dL Calculated Osmolality (280-300) Calcium (8.6-10.3) mg/dL Total Bilirubin (0.3-1.0) mg/dL Direct Bilirubin (0.0-0.2) mg/dL Indirect Bilirubin (0.0-1.2) mg/dL AST (13-39) Units/L ALT (7-52) Units/L Alkaline Phosphatase (34-104) Units/L Ammonia (16-53) mcmol/L Serum Total Protein (6.4-8.9) g/dL Albumin (3.5-5.7) g/dL Globulin (2.4-3.5) g/dL Albumin/Globulin Ratio (1.1-2.2) Lipase (11-82) Units/L Urine Color Dark Yellow (Yellow) Urine Clarity Cloudy A (Clear) Urine pH 6.0 (5.0-8.0) pH Units Ur Specific [place] < 1.005 L (1.010-1.025) Urine Protein Negative (Neg-Trace) mg/dL Urine Glucose (UA) Normal (Normal) mg/dL Urine Ketones Negative (Negative) mg/dL Urine Blood Negative (Negative) Urine Nitrite Negative (Negative) Urine Bilirubin Small H (Negative) Urine Urobilinogen Normal (Normal) mg/dL Ur Leukocyte Esterase Negative (Negative) Urine Microscopic RBC 0-3 (0-3) per hpf Urine Microscopic WBC 0-3 (0-3) per hpf Ur Squamous Epith Cells None Seen (None-Few) per lpf Urine Bacteria Moderate H (None-Few) per hpf Hyaline Casts None Seen (None-Few) per lpf Salicylates (15.0-30.0) mg/dL Urine Opiates Screen Negative (Cyfwje=670) ng/mL Acetaminophen (10-20) mcg/mL Ur Barbiturates Screen Negative (Udbmlv=879) ng/mL Ur Phencyclidine Scrn Negative (Cutoff=25) ng/mL Ur Amphetamines Screen Negative (Aqobic=8688) ng/mL U Benzodiazepines Scrn Negative (Vxiwpi=064) ng/mL Urine Cocaine Screen Negative (Cutoff= 300) ng/mL U Marijuana (THC) Screen Positive H (Cutoff = 50) ng/mL Ur Drug Screen Interp See Below Ethyl Alcohol (Less than 10) mg/dL 10/14/18 10/14/18 10/14/18 Range/Units 05:03 06:03 07:44 WBC (4.3-11.1) K/mcL RBC (4.19-5.50) M/mcL Hgb (12.9-16.9) g/dL Hct (37.5-50.1) % MCV (83.0-100.0) fL MCH (28.0-33.3) pg MCHC (31.6-35.5) g/dL RDW (11.5-14.5) % Plt Count (140-400) K/mcL MPV (9.4-12.4) fL Immature Gran % (0-4) % Seg Neutrophils % % Lymphocytes % % Monocytes % % Eosinophils % % Basophils % % Neutrophils # (1.6-8.9) K/mcL Lymphocytes # (0.6-4.6) K/mcL Monocytes # (0.0-1.3) K/mcL Eosinophils # (0.0-0.6) K/mcL Basophils # (0.0-0.2) K/mcL Reactive Lymphocytes (Not Present) Platelet Estimate (Normal) Anisocytosis (Not Present) PT 14.7 H (9.4-12.1) Seconds INR 1.3 APTT 48.9 H (26.0-36.0) Seconds Sodium 136 (136-145) mEq/L Potassium 2.9 L (3.5-5.1) mEq/L Chloride 101 (98-107) mEq/L Carbon Dioxide 24 (23-29) mEq/L BUN 14 (6-20) mg/dL Creatinine 0.82 (0.70-1.30) mg/dL Est GFR ( Amer) > 60 (> 60) Est GFR (Non-Af Amer) > 60 (> 60) BUN/Creatinine Ratio 17 (6-26) Glucose 134 H (70-105) mg/dL Calculated Osmolality 284 (280-300) Calcium 8.9 (8.6-10.3) mg/dL Total Bilirubin 6.5 H (0.3-1.0) mg/dL Direct Bilirubin 4.6 H (0.0-0.2) mg/dL Indirect Bilirubin 1.9 H (0.0-1.2) mg/dL AST 1553 H (13-39) Units/L ALT > 500 H (7-52) Units/L Alkaline Phosphatase 159 H (34-104) Units/L Ammonia 98 H (16-53) mcmol/L Serum Total Protein 7.4 (6.4-8.9) g/dL Albumin 3.5 (3.5-5.7) g/dL Globulin 3.9 H (2.4-3.5) g/dL Albumin/Globulin Ratio 0.9 L (1.1-2.2) Lipase 52 (11-82) Units/L Urine Color (Yellow) Urine Clarity (Clear) Urine pH (5.0-8.0) pH Units Ur Specific [place] (1.010-1.025) Urine Protein (Neg-Trace) mg/dL Urine Glucose (UA) (Normal) mg/dL Urine Ketones (Negative) mg/dL Urine Blood (Negative) Urine Nitrite (Negative) Urine Bilirubin (Negative) Urine Urobilinogen (Normal) mg/dL Ur Leukocyte Esterase (Negative) Urine Microscopic RBC (0-3) per hpf Urine Microscopic WBC (0-3) per hpf Ur Squamous Epith Cells (None-Few) per lpf Urine Bacteria (None-Few) per hpf Hyaline Casts (None-Few) per lpf Salicylates < 2.5 L (15.0-30.0) mg/dL Urine Opiates Screen (Hwqwxy=382) ng/mL Acetaminophen < 10 L (10-20) mcg/mL Ur Barbiturates Screen (Kulwls=826) ng/mL Ur Phencyclidine Scrn (Cutoff=25) ng/mL Ur Amphetamines Screen (Pojftm=9327) ng/mL U Benzodiazepines Scrn (Yzixus=339) ng/mL Urine Cocaine Screen (Cutoff= 300) ng/mL U Marijuana (THC) Screen (Cutoff = 50) ng/mL Ur Drug Screen Interp Ethyl Alcohol < 10 (Less than 10) mg/dL - Radiology Data Radiology results reviewed: Yes I reviewed the patient's radiology results. FINDINGS: Lower Chest: Motion artifact degrades image quality. There is bibasilar atelectasis. Organs: The liver, spleen, pancreas, adrenal glands and kidneys are unremarkable. There is a 1.2 cm left lower pole renal cyst. The gallbladder is contracted and limited by motion artifact. However, there is mild pericholecystic inflammation. GI/Bowel: There is no bowel obstruction. The appendix is within normal limits. Pelvis: The pelvic viscera are within normal limits. Peritoneum/Retroperitoneum: There is no evidence of free fluid or adenopathy. Bones/Soft Tissues: Degenerative changes involve the thoracolumbar spine and bilateral hips. There is grade 2 anterolisthesis of L5 on S1 due to bilateral L5 pars defects. CT/CT abd pelvis w iv no oral IMPRESSION: 1. Mild pericholecystic inflammation questionable for acute cholecystitis given the contracted state and motion artifact. D/ / Andrea Connor MD / Andrea Connor MD Interpreting Provider: Andrea Connor MD
[2018-10-14 10:16] LABS: Hepatitis A Antibody IgM Reactive (Nonreactive); Hepatitis B Core IgM Reactive (Nonreactive); Hepatitis B Surface Antigen Reactive (Nonreactive)
[2018-10-14] MEDS ORDERED: Naloxone 0.4 MG/ML INJ IVP PRN (10:37)
[2018-10-14] MEDS ORDERED: Nicotine 14 MG PATCH.TD24 TD SCH (10:45)
--- NOTE | 2018-10-14 10:51 | Internal Med History&Physical ---
Date of Encounter: 10/14/18 Time of Encounter: 10:45 Internal Medicine - H&P: HPI Chief complaint: Shakes and runny nose Admitted From: Emergency Dept Plans for Post Hospital Care: Home History of present illness: Mr. Adams is a 48 year old male with hx of ETOH abuse presented to ED with "shakes" and rhinorrhea. He was evaluated and subsequently admitted. Mr Adams presented to the ED today complaining of shakeing. He stated he wants to stop drinking and that his son will no longer buy him alcohol. Prior to this he drank 12-24 beers a day (for over 10 years). Last drink greater than 24 hours ago. He reports hx of issues with hallucinations and psychosis with prior alcohol withdrawal as well as a withdrawal seizure over 6 months ago. Currently he is complaining of shaking. He reported in ED that he was having both visual and auditory hallucinations. He reported he was afraid that he may hurt himself but has no plan. He is currently demanding something to eat and drink and medication for his shaking. Denies nausea or vomiting currently (though says he has been vomiting last few days). Stated he has been coughing and having stomach cramping and diarrhea as well. His head has been congested and he has been coughing some (nonproductive). His lab is consistent with acute hep A and B. He admits to history of IV drug abuse and said he used "couple times" since his last admission. He would not tell me when he last used. Past Med Surg Social Fam HX - Past Medical History Source: patient, old records reviewed Medical history: diabetes, hypertension Additional medical history: Cellulitis Psychiatric history: depression, previous psychiatric hospitalization - Past Surgical History Surgical History: no surgical history Additional surgical history: n/a - Social History Smoking Status: Current every day smoker Smokeless Tobacco Status: No Alcohol use: heavy, recent Drug use: opiates, marijuana, methamphetamine, IV Drug Use, prescription drug abuse Activity Level: Independent ambulation - Family History Father Adopted: No Family Member Ethnicity: Non- Living Status: Hx Family Cardiac Disorders: Yes ([place] in 50s) Mother Family Member Ethnicity: Non- Living Status: Hx Family Cardiac Disorders: Yes ([place] in 50s) Hx Family Cancer: Yes (Cancer) Hx Family Endocrine Disorder: Yes (Diabetes) Internal Medicine - H&P: Meds Atenolol [Tenormin] 25 mg PO DAILY 05/18/18 [History] Gabapentin [Neurontin] 100 mg PO TID 05/18/18 [History] Lisinopril [Zestril] 5 mg PO DAILY 05/18/18 [History] Mirtazapine 7.5 mg PO HS 05/18/18 [History] amLODIPine [Norvasc] 10 mg PO DAILY 05/18/18 [History] hydrOXYzine pamoate [Hydroxyzine Pamoate] 25 mg PO TID PRN 05/18/18 [History] Nicotine Patch [Nicoderm] 14 mg TD DAILY patch.[id number] 06/01/18 [Rx] Allergy/AdvReac Type Severity Reaction Status Date / Time Amoxicillin Allergy Hives Verified 10/14/18 03:02 Penicillins Allergy Hives Verified 10/14/18 03:02 quetiapine [From Seroquel] Allergy Hives Verified 10/14/18 03:02 chlordiazepoxide AdvReac Gastrointestinal Verified 10/14/18 03:02 [From Librium] Upset All Systems PM: A 10-system review of systems was performed and is negative for pertinent findings except as documented above in the HPI. - Constitutional Constitutional: chills, malaise, no night sweats - EENT Eyes: no change in vision, no pain Ears: no decreased hearing Nose, mouth and throat: no dysphagia, no mouth pain - Cardiovascular Cardiovascular ROS IM: dyspnea, no chest pain, no dyspnea on exertion, no edema, no orthopnea, no palpitations, no paroxysmal nocturnal dyspnea - Respiratory Respiratory: cough, chest congestion, no dyspnea on exertion, no wheezing, no excessive phlegm production, no change in phlegm color - Gastrointestinal Gastrointestinal: cramping, diarrhea, no abdominal pain, no melena - Genitourinary Genitourinary ROS male: no difficulty urinating, no nocturia - Musculoskeletal Musculoskeletal ROS IM: no arthralgias, no muscle cramps - Integumentary Integumentary IM: no erythema, no rash - Neurological Neurological ROS: no dizziness, no numbness - Psychiatric Psychiatric: auditory hallucinations, difficulty concentrating, visual hallucinations - Endocrine Endocrine IM: no cold intolerance, no excessive sweating - Hematologic/Lymphatic Hematologic/Lymphatic: no easy bleeding - Allergic/Immunologic Allergic/Immunologic: no itchy eyes - Constitutional Vitals: Temp Pulse Resp BP Pulse Ox 98.4 F 113 16 156/88 93 10/14/18 10:07 10/14/18 03:02 10/14/18 10:07 10/14/18 10:07 10/14/18 03:02 General appearance: Present: A&O X 3 Exam: See below - Head Head exam: Present: atraumatic, normocephalic - Eye Eye exam: Present: conjuntiva pink - ENT ENT exam: Present: mucous membranes dry - Neck Neck exam general surgery: Present: normal inspection. Absent: thyromegaly - Respiratory Respiratory exam: Present: decreased breath sounds, wheezes (Very scant wheeze on L). Absent: rales, rhonchi - Cardiovascular Cardiovascular exam: Present: RRR. Absent: systolic murmur, tachycardia - GI/Abdominal GI/Abdominal exam: Present: distended, soft, tenderness (Some tenderness noted in RUQ area. No peritoneal signs.) - Extremities Exam Extremities exam: Present: warm. Absent: joint swelling, pedal edema, tenderness - Neurological Exam Neurological exam: Present: alert, oriented X3, no focal deficits (Moves all extremities. ). Absent: motor sensory deficit - Psychiatric Psychiatric exam: Present: agitated - Skin Skin exam: Present: dry, warm. Absent: rash Internal Med - H&P Results - Labs CBC & Chem 7: 10/14/18 05:03 10/14/18 05:03 Labs: Short CBC 10/14/18 Range/Units 05:03 WBC 8.0 (4.3-11.1) K/mcL Hgb 14.4 (12.9-16.9) g/dL Hct 42.1 (37.5-50.1) % Plt Count 161 (140-400) K/mcL Neutrophils # 4.5 (1.6-8.9) K/mcL BMP 10/14/18 05:03 Sodium 136 Potassium 2.9 L Chloride 101 Carbon Dioxide 24 BUN 14 Creatinine 0.82 Glucose 134 H Calcium 8.9 Liver Function 10/14/18 Range/Units 05:03 Total Bilirubin 6.5 H (0.3-1.0) mg/dL Direct Bilirubin 4.6 H (0.0-0.2) mg/dL AST 1553 H (13-39) Units/L ALT > 500 H (7-52) Units/L Alkaline Phosphatase 159 H (34-104) Units/L Albumin 3.5 (3.5-5.7) g/dL Urine 10/14/18 Range/Units 03:00 Urine Color Dark Yellow (Yellow) Urine Clarity Cloudy A (Clear) Urine pH 6.0 (5.0-8.0) pH Units Ur Specific Gamaliel < 1.005 L (1.010-1.025) Urine Protein Negative (Neg-Trace) mg/dL Urine Glucose (UA) Normal (Normal) mg/dL - Impressions ITS Impressions Chest X-Ray 10/14/18 03:43 IMPRESSION: No airspace disease suspicious for pneumonia. Shallow inspiratory effort. D/ / Mathew Mathis / Mathew Mathis Interpreting Provider: Mathew Mathis Abdomen/Pelvis CT 10/14/18 06:06 IMPRESSION: 1. Mild pericholecystic inflammation questionable for acute cholecystitis given the contracted state and motion artifact. D/ / Andrea Connor MD / Andrea Connor MD Interpreting Provider: Andrea Connor MD - Assessment and plan (1) Alcohol dependence with withdrawal Current Visit: No Status: Acute Assessment and plan: Pt has long standing hx of ETOH abuse. He has had multiple admissions for complaints of withdrawal and has history of requesting Ativan frequently. Currently he reports hallucinations and shaking. Admit to med floor. CIWA protocol ordered. IV fluids overnight Folate and thiamine ordered In the past he has been seen by psychiatry and was started on Neurontin last visit. He says he no longer takes it (ran out and couldn't get more). I have restarted it now. Qualifiers: Complication of substance-induced condition: with delirium Qualified Code(s): F10.231 - Alcohol dependence with withdrawal delirium (2) Hepatitis A Current Visit: Yes Status: Acute Assessment and plan: Pt has markedly elevated liver function. INR 1.3. Hepatitis A IGM positive. Supportive care. Follow INR. Qualifiers: Hepatic coma status: without hepatic coma Qualified Code(s): B15.9 - Hepatitis A without hepatic coma (3) Hepatitis B Current Visit: Yes Status: Suspected Assessment and plan: Pt presented with markedly elevated liver function. INR 1.3 Admits to IV drug use since last admit. Hep B surface antigen and core IGM positive. Will check surface antibody and delta. Supportive care for now. Qualifiers: Viral hepatitis chronicity: acute Hepatic coma status: without hepatic coma Hepatitis delta agent presence: without delta-agent Qualified Code(s): B16.9 - Acute hepatitis B without delta-agent and without hepatic coma (4) Hypokalemia Current Visit: Yes Status: Acute Assessment and plan: Potassium 2.9 in ED and he was given 40meq PO. Will recheck this later today and check magnesium as well (which I expect will be low with ETOH use) and replete if needed. Recheck K in AM. (5) DM2 (diabetes mellitus, type 2) Current Visit: No Status: Chronic Assessment and plan: Pt currently not on any meds. HgbA1C 6.8% in March. Will check sugars and cover. Diabetic diet ordered. 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 Has not been taking meds. Blood pressure currently elevated - lack of meds plus ETOH withdrawal. PO meds restarted today. Add PRN Hydralazine. If remains high may benefit from Clonidine PRN with ETOH withdrawal. Qualifiers: Hypertension type: essential hypertension Qualified Code(s): I10 - Essential (primary) hypertension (7) Suicidal ideation Current Visit: No Status: Acute Assessment and plan: Pt reported in ED that he might harm himself. Sitter has been ordered. Currently does not have pink slip. (8) Diastolic CHF, chronic Current Visit: No Status: Chronic Assessment and plan: Chronic issue with no acute exacerbation. (9) Polysubstance abuse Current Visit: No Status: Chronic Assessment and plan: Pt has chronic history of polysubstance abuse. (10) Morbid obesity with BMI of 50.0-59.9, adult Current Visit: No Status: Chronic Assessment and plan: Chronic issue. (11) Tobacco abuse Current Visit: No Status: Chronic Assessment and plan: Chronic issue. Nicotine gum. (12) Hepatic encephalopathy Current Visit: Yes Status: Suspected Assessment and plan: Pt has elevated ammonia in setting of acute hepatitis Start Lactulose (13) Hepatitis C Current Visit: Yes Status: Chronic Assessment and plan: Previous history of hep C Qualifiers: Viral hepatitis chronicity: unspecified Hepatic coma status: without hepatic coma Qualified Code(s): B19.20 - Unspecified viral hepatitis C without hepatic coma - Time Spent With Patient Total time spent is greater than 50% in coordination of care (as documented) at patient's floor/unit and/or counseling patient:
[2018-10-14 11:11] LABS: Hepatitis C Virus Antibody Reactive (Nonreactive)
[2018-10-14] MEDS: *HR* LORazepam 2 MG/ML VIAL IVP PRN ×2 (11:21→15:22)
[2018-10-14] MEDS: amLODIPine 5 MG TABLET PO SCH (11:26)
[2018-10-14] MEDS: Gabapentin 100 MG CAPSULE PO SCH ×3 (11:27→19:57)
--- NOTE | 2018-10-14 11:37 | Gastroenterology Consult Note ---
<Deacon Macias - Last Filed: 10/14/18 14:42> Date of Encounter: 10/14/18 Time of Encounter: 14:00 - Time Spent With Patient Total time spent is greater than 50% in coordination of care (as documented) at patient's floor/unit and/or counseling patient: GI History of Present Illness - Data of Consult Requesting Physician: Davi Mendez DO - Consult Narrative History of present illness: Mr. Adams is a 48 year old male - Constitutional Vitals: Temp Pulse Resp BP Pulse Ox 97.9 F 82 19 162/92 92 10/14/18 11:19 10/14/18 11:19 10/14/18 11:19 10/14/18 11:19 10/14/18 11:19 Results - Labs CBC & Chem 7: 10/14/18 05:03 10/14/18 05:03 Labs: Last Result Calcium 8.9 mg/dL (8.6-10.3) 10/14/18 05:03 Salicylates < 2.5 mg/dL (15.0-30.0) L 10/14/18 05:03 Urine Opiates Screen Negative ng/mL (Bmngiq=217) 10/14/18 03:00 Entire Visit Hgb 14.4 g/dL (12.9-16.9) 10/14/18 05:03 Hct 42.1 % (37.5-50.1) 10/14/18 05:03 PT 14.7 Seconds (9.4-12.1) H 10/14/18 07:44 Total Bilirubin 6.5 mg/dL (0.3-1.0) H 10/14/18 05:03 AST 1553 Units/L (13-39) H 10/14/18 05:03 ALT > 500 Units/L (7-52) H 10/14/18 05:03 Ammonia 98 mcmol/L (16-53) H 10/14/18 06:03 Lipase 52 Units/L (11-82) 10/14/18 05:03 Acetaminophen < 10 mcg/mL (10-20) L 10/14/18 05:03 - ABG ABG results: PT/INR, D-dimer PT 14.7 Seconds (9.4-12.1) H 10/14/18 07:44 - Impressions Impressions Chest X-Ray 10/14/18 03:43 IMPRESSION: No airspace disease suspicious for pneumonia. Shallow inspiratory effort. D/ / Mathew Mathis / Mathew Mathis Interpreting Provider: Mathew Mathis Abdomen/Pelvis CT 10/14/18 06:06 IMPRESSION: 1. Mild pericholecystic inflammation questionable for acute cholecystitis given the contracted state and motion artifact. D/ / Andrea Connor MD / Andrea Connor MD Interpreting Provider: Andrea Connor MD Gallbladder Ultrasound 10/14/18 09:10 IMPRESSION: Limited study due to patient's ability to cooperate for exam. Gallbladder is contracted with thickened, edematous rdz and small amount of suspected pericholecystic fluid. Finding is nonspecific and could represent acute or chronic cholecystitis. A nuclear medicine hepatobiliary scan could be considered to evaluate for acute cholecystitis, biliary function. D/ / 10/14/2018 11:04:16 Travon Roper MD [facility] Inter[facility] Provider: Travon Roper MD Consult Discharge Plan - Plan Referrals: NONE,PCP [Primary Care Provider] - - Attending Attestation I have personally performed a face to face evaluation on this patient. I have reviewed and agree with the care plan. History and Exam by me shows: Patient seen currently patient sedated after receiving a dose of Ativan. On examination does has tattoos and currently patient is agitated and confused. Assessment: Patient with a history of ALcohol and polysubstance abuse now with acute hepatitis due to Hep A and B. Also is having alcohol withdrawal. Rec: Supportive care IV banana bags, CIWA. Follow LFTs including INR. Gallbladder findings are nonspecific because of acute hepatitis <Ngozi Lea - Last Filed: 10/15/18 10:17> Date of Encounter: 10/15/18 Time of Encounter: 11:25 - Time Spent With Patient Total time spent is greater than 50% in coordination of care (as documented) at patient's floor/unit and/or counseling patient: GI History of Present Illness - Data of Consult Patient: new to practice Consult date: 10/14/18 Requesting Physician: Davi Mendez DO - Consult Narrative Reason for consult: hepA, Hep B, elevated liver enzymes History of present illness: Mr. Adams is a 48 year old male with hx of ETOH abuse, hepatitis C, hypertension, diabetes, IV drug use, depression and morbid obesity. He pesented to ED with "shakes", visual and auditory hallucinations and rhinorrhea. He has an greater than 10 year history of drinking 12-24 beers a day. He states his last drink was on Friday night approximately 3 days ago. He also has a history of IV drug use but states he has been clean for the past 2 years (however he admits to hospitalist that he has used a couple times since the last admission). He stated he wants to stop drinking and that his son will no longer buy him alcohol. He reports hx of issues with hallucinations and psychosis with prior alcohol withdrawal as well as a withdrawal seizure over 6 months ago. He reports upper abdominal pain nausea and vomiting for the past couple days. He states "I need that Ativan or I am going to flip out". He is asking for food and soda. His lab is consistent with acute hep A and B. lFTs were very elevated with an AST of 1500, ALT greater than 500, ammonia 98, total bili 6.5. DF 18.5 Meld NA 19 DX: Alcohol withdrawals Hep a Acute Hep B Elevated LFTs Plan: Continue IVF and vitamin/electrolyte replacement. Symptomatic management. Monitor LFTs. Follow up as an outpatient with Dr Macias. Past Med Surg Social Fam HX - Past Medical History Medical history: diabetes, hypertension Additional medical history: Cellulitis Psychiatric history: depression, previous psychiatric hospitalization - Past Surgical History Surgical History: no surgical history Additional surgical history: n/a - Social History Smoking Status: Current every day smoker Smokeless Tobacco Status: No Alcohol use: heavy, recent Drug use: opiates, marijuana, methamphetamine, IV Drug Use, prescription drug abuse - Family History Father Adopted: No Family Member Ethnicity: Non- Living Status: Hx Family Cardiac Disorders: Yes ([place] in 50s) Mother Family Member Ethnicity: Non- Living Status: Hx Family Cardiac Disorders: Yes ([place] in 50s) Hx Family Cancer: Yes (Cancer) Hx Family Endocrine Disorder: Yes (Diabetes) Review of Systems: GI: as per KNIK GENERAL: denies fever, has some chills EYES: denies yellow discoloration ENT: denies pain with swallowing or difficulty swallowing CARDIO: denies chest pain, palpitations RESP: Shortness of breath with exertion : denies change in color of urine NEURO: see hpi HEME: Denies any bruising MS: chronic back and joint pain. DERM: denies rash or itching PSYCH: see HPI - Constitutional Vitals: Temp Pulse Resp BP Pulse Ox 97.9 F 82 19 162/92 92 10/14/18 11:19 10/14/18 11:19 10/14/18 11:19 10/14/18 11:19 10/14/18 11:19 Exam: CONSTITUTIONAL:drowsy, falls asleed during conversation then awakens and appears agitated and restless.HEAD:normocephalic.EYES: jaundice.NECK:no o bvious swelling.HEART:regular rate and rhythm, no murmurs.LUNGS:bilateral fair air entry.ABDOMEN:non distended, soft, tender to epigastric area, obese, difficulty to palpate for organomegaly.RECTAL EXAM:Deferred.EXTREMITIES:no clubbing, cyanosis or edema.SKIN:mild icterus numerous tattoos noted.NEUROLOGIC:no obvious focal defect. Results - Labs CBC & Chem 7: 10/15/18 04:26 10/15/18 04:26 Labs: Last Result Calcium 8.9 mg/dL (8.6-10.3) 10/14/18 05:03 Salicylates < 2.5 mg/dL (15.0-30.0) L 10/14/18 05:03 Urine Opiates Screen Negative ng/mL (Wxkvwv=109) 10/14/18 03:00 Entire Visit Hgb 14.4 g/dL (12.9-16.9) 10/14/18 05:03 Hct 42.1 % (37.5-50.1) 10/14/18 05:03 PT 14.7 Seconds (9.4-12.1) H 10/14/18 07:44 Total Bilirubin 6.5 mg/dL (0.3-1.0) H 10/14/18 05:03 AST 1553 Units/L (13-39) H 10/14/18 05:03 ALT > 500 Units/L (7-52) H 10/14/18 05:03 Ammonia 98 mcmol/L (16-53) H 10/14/18 06:03 Lipase 52 Units/L (11-82) 10/14/18 05:03 Acetaminophen < 10 mcg/mL (10-20) L 10/14/18 05:03 - ABG ABG results: PT/INR, D-dimer PT 14.7 Seconds (9.4-12.1) H 10/14/18 07:44 - Impressions Impressions Chest X-Ray 10/14/18 03:43 IMPRESSION: No airspace disease suspicious for pneumonia. Shallow inspiratory effort. D/ / Mathew Mathis / Mathew Mathis Interpreting Provider: Mathew Mathis Abdomen/Pelvis CT 10/14/18 06:06 IMPRESSION: 1. Mild pericholecystic inflammation questionable for acute cholecystitis given the contracted state and motion artifact. D/ / Andrea Connor MD / Andrea Connor MD Interpreting Provider: Andrea Connor MD Gallbladder Ultrasound 10/14/18 09:10 IMPRESSION: Limited study due to patient's ability to cooperate for exam. Gallbladder is contracted with thickened, edematous rdz and small amount of suspected pericholecystic fluid. Finding is nonspecific and could represent acute or chronic cholecystitis. A nuclear medicine hepatobiliary scan could be considered to evaluate for acute cholecystitis, biliary function. D/ / 10/14/2018 11:04:16 Travon Roper MD / [facility] Interpreting Provider: Travon Roper MD
[2018-10-14] MEDS ORDERED: Dextrose Gel 15 GM/37.5 ML TUBE PO PRN ×2 (11:45)
[2018-10-14] MEDS ORDERED: D5% in Water 1,000 ML IVC PRN (11:45)
[2018-10-14] MEDS ORDERED: *HR* Dextrose 50 % in Water (Syg) 50 ML SYRINGE IVP PRN (11:45)
[2018-10-14] MEDS: Lactulose Oral Soln 20 GM/30 ML UDC PO SCH ×2 (13:26→19:57)
[2018-10-14] MEDS: Nicotine 2 MG GUM BC SCH ×4 (13:28→20:15)
--- NOTE | 2018-10-14 13:44 | General Surgery Consult Note ---
Date of Encounter: 10/14/18 Time of Encounter: 13:39 Assessment and Plan (1) Abdominal pain Current Visit: Yes Status: Acute 48M with one day history of worsening abdominal pain, jaundice, and positive hepatitis panel; suspect that the fluid seen on imaging is related to hepatitis and not gallbladder disease; the best explanation for elevated transaminases; no evidence for obstruction on imaging; diet as tolerated pain control GI consult trend T bili IVF no acute surgery necessary general surgery will sign off; please call if there are any new questions or concerns Qualifiers: Abdominal location: right upper quadrant Qualified Code(s): R10.11 - Right upper quadrant pain History of Present Illness Consult date: 10/14/18 Reason for consult: abdominal pain History of present illness: 48 year old male h/o obesity, HTN, ETOH abuse, hepatitis C, DM II, prior IV drug use presents with 1 day history of worsening abdominal pain. The is localized to the rigth side with assoiated nauea. No reports of fevers, chills, chest pain nor shortness of breath. The pain is on going, sharp in nature, rated ab out 8/10. Due to the worsening pain, the patient presented to the ED for evaluation Of note, , he has an greater than 10 year history of drinking 12-24 beers a day, his last drink was on the night of the Superbowl, about 3 days ago. The patient makes it clear that he needs ativan, suggesting that he is likely going through withdrawal from EtOH. Lab values are consistnet with acute hep A and B and likely a component of EtOH. A CT was obtained demonstrating fluid around the gallbladder and possibly gallbladder wall thickening. His Tbili is elevated, but US of the GB does not show obstruction. Past Med Surg Social Fam HX - Past Medical History Medical history: diabetes, hypertension Additional medical history: Cellulitis Psychiatric history: depression, previous psychiatric hospitalization - Past Surgical History Surgical History: no surgical history Additional surgical history: n/a - Social History Smoking Status: Current every day smoker Smokeless Tobacco Status: No Alcohol use: heavy, recent Drug use: opiates, marijuana, methamphetamine, IV Drug Use, prescription drug abuse - Family History Father Adopted: No Family Member Ethnicity: Non- Living Status: Hx Family Cardiac Disorders: Yes (MS in 50s) Mother Family Member Ethnicity: Non- Living Status: Hx Family Cardiac Disorders: Yes (MS in 50s) Hx Family Cancer: Yes (Cancer) Hx Family Endocrine Disorder: Yes (Diabetes) Medications and Allergies Atenolol [Tenormin] 25 mg PO DAILY 05/18/18 [History] Gabapentin [Neurontin] 100 mg PO TID 05/18/18 [History] Lisinopril [Zestril] 5 mg PO DAILY 05/18/18 [History] Mirtazapine 7.5 mg PO HS 05/18/18 [History] amLODIPine [Norvasc] 10 mg PO DAILY 05/18/18 [History] hydrOXYzine pamoate [Hydroxyzine Pamoate] 25 mg PO TID PRN 05/18/18 [History] Nicotine Patch [Nicoderm] 14 mg TD DAILY patch.td24 06/01/18 [Rx] Buprenorphine HCl/Naloxone HCl [Buprenorphin-Naloxon 8-2 mg Sl] 10/14/18 [History] Allergy/AdvReac Type Severity Reaction Status Date / Time Amoxicillin Allergy Hives Verified 10/14/18 03:02 Penicillins Allergy Hives Verified 10/14/18 03:02 quetiapine [From Seroquel] Allergy Hives Verified 10/14/18 03:02 chlordiazepoxide AdvReac Gastrointestinal Verified 10/14/18 03:02 [From Librium] Upset Review of Systems All systems PM: 12 point ROS negative besides HPI findings General Surgery Exam Initial Vital Signs Temp Pulse Resp BP Pulse Ox 98.1 F 113 19 198/106 93 10/14/18 03:02 10/14/18 03:02 10/14/18 03:02 10/14/18 03:02 10/14/18 03:02 - General physical appearance no distress - Eyes other (scleral icterus) - ENT normocephalic - Neck trachea midline, no lymphadectomy - Respiratory normal expansion, normal respiratory effort - Cardiovascular Cardiovascular exam: Present: RRR - Abdomen Abdomen general surgery: Present: soft, non tender - Integumentary Integumentary general surgery: Present: warm and dry, other (jaundice appreciated) - Neurologic Present: CN 2-12 grossly intact - Musculoskeletal Present: normal posture - Psychiatric Psychiatric general surgery: Present: A&Ox3 Exam Initial Vital Signs Temp Pulse Resp BP Pulse Ox 98.1 F 113 19 198/106 93 10/14/18 03:02 02/06/19 03:02 10/14/18 03:02 10/14/18 03:02 10/14/18 03:02 Results - Labs 10/14/18 05:03 10/14/18 05:03 Abnormal lab results RDW 17.3 % (11.5-14.5) H 10/14/18 05:03 Reactive Lymphocytes Present (Not Present) A 10/14/18 05:03 Anisocytosis 1+ (Not Present) A 10/14/18 05:03 PT 14.7 Seconds (9.4-12.1) H 10/14/18 07:44 APTT 48.9 Seconds (26.0-36.0) H 10/14/18 07:44 Potassium 2.9 mEq/L (3.5-5.1) L 10/14/18 05:03 Glucose 134 mg/dL (70-105) H 10/14/18 05:03 Total Bilirubin 6.5 mg/dL (0.3-1.0) H 10/14/18 05:03 Direct Bilirubin 4.6 mg/dL (0.0-0.2) H 10/14/18 05:03 Indirect Bilirubin 1.9 mg/dL (0.0-1.2) H 10/14/18 05:03 AST 1553 Units/L (13-39) H 10/14/18 05:03 ALT > 500 Units/L (7-52) H 10/14/18 05:03 Alkaline Phosphatase 159 Units/L (34-104) H 10/14/18 05:03 Ammonia 98 mcmol/L (16-53) H 10/14/18 06:03 Globulin 3.9 g/dL (2.4-3.5) H 10/14/18 05:03 Albumin/Globulin Ratio 0.9 (1.1-2.2) L 10/14/18 05:03 Urine Clarity Cloudy (Clear) A 10/14/18 03:00 Ur Specific [place] < 1.005 (1.010-1.025) L 10/14/18 03:00 Urine Bilirubin Small (Negative) H 10/14/18 03:00 Urine Bacteria Moderate per hpf (None-Few) H 10/14/18 03:00 Salicylates < 2.5 mg/dL (15.0-30.0) L 10/14/18 05:03 Acetaminophen < 10 mcg/mL (10-20) L 10/14/18 05:03 U Marijuana (THC) Screen Positive ng/mL (Cutoff = 50) H 10/14/18 03:00 Hepatitis A IgM Ab Reactive (Nonreactive) H 10/14/18 05:23 Hep Bs Antigen Reactive (Nonreactive) H 10/14/18 05:23 Hep B Core IgM Ab Reactive (Nonreactive) H 10/14/18 05:23 Hepatitis C Ab Screen Reactive (Nonreactive) H 10/14/18 05:23 Diabetes panel 10/14/18 Range/Units 05:03 Sodium 136 (136-145) mEq/L Potassium 2.9 L (3.5-5.1) mEq/L Chloride 101 (98-107) mEq/L Carbon Dioxide 24 (23-29) mEq/L BUN 14 (6-20) mg/dL Creatinine 0.82 (0.70-1.30) mg/dL Glucose 134 H (70-105) mg/dL Calcium 8.9 (8.6-10.3) mg/dL AST 1553 H (13-39) Units/L ALT > 500 H (7-52) Units/L Alkaline Phosphatase 159 H (34-104) Units/L Albumin 3.5 (3.5-5.7) g/dL Calcium panel 10/14/18 Range/Units 05:03 Calcium 8.9 (8.6-10.3) mg/dL Albumin 3.5 (3.5-5.7) g/dL Pituitary panel 10/14/18 Range/Units 05:03 Sodium 136 (136-145) mEq/L Potassium 2.9 L (3.5-5.1) mEq/L Chloride 101 (98-107) mEq/L Carbon Dioxide 24 (23-29) mEq/L BUN 14 (6-20) mg/dL Creatinine 0.82 (0.70-1.30) mg/dL Glucose 134 H (70-105) mg/dL Calcium 8.9 (8.6-10.3) mg/dL Adrenal panel 10/14/18 Range/Units 05:03 Sodium 136 (136-145) mEq/L Potassium 2.9 L (3.5-5.1) mEq/L Chloride 101 (98-107) mEq/L Carbon Dioxide 24 (23-29) mEq/L BUN 14 (6-20) mg/dL Creatinine 0.82 (0.70-1.30) mg/dL Glucose 134 H (70-105) mg/dL Calcium 8.9 (8.6-10.3) mg/dL Total Bilirubin 6.5 H (0.3-1.0) mg/dL AST 1553 H (13-39) Units/L ALT > 500 H (7-52) Units/L Alkaline Phosphatase 159 H (34-104) Units/L Albumin 3.5 (3.5-5.7) g/dL All other labs normal. - Imaging CT scan - abdomen: report reviewed, image reviewed CT scan - pelvis: report reviewed, image reviewed Consult Discharge Plan - Plan Referrals: NONE,PCP [Primary Care Provider] -
[2018-10-14 15:07] LABS: Magnesium 1.8 mg/dL (1.6-2.6); Phosphorous 2.6 mg/dL (2.7-4.5)
[2018-10-14] MEDS ORDERED: Thiamine (B-1) 100 MG, Folic Acid 1 MG, MVI, adult with vitamin K 10 ML in 0.9 % Sodi... IVPB SCH (18:00)
[2018-10-14] MEDS: Insulin LISPRO 300 UNITS/3 ML VIAL SQ SCH ×2 (18:04→19:57)
[2018-10-14] MEDS: Mirtazapine 15 MG TABLET PO SCH (19:57)
[2018-10-14 20:26] LABS: Estimated Average Glucose 131 mg/dl; Hemoglobin A1C 6.2 %
[2018-10-14] MEDS ORDERED: Ibuprofen 400 MG TABLET PO ONE (22:45)
[2018-10-15] MEDS: *HR* LORazepam 2 MG/ML VIAL IVP PRN ×7 (01:29→22:17)
[2018-10-15 04:40] LABS: Hematocrit 41.6 % (37.5-50.1); Hemoglobin 13.8 g/dL (12.9-16.9); Mean Corpuscular HGB Conc 33.2 g/dL (31.6-35.5); Mean Corpuscular Hemoglobin 28.8 pg (28.0-33.3); Mean Corpuscular Volume 86.8 fL (83.0-100.0); Mean Platelet Volume 10.7 fL (9.4-12.4); Platelet Count 150 K/mcL (140-400); Red Blood Count 4.79 M/mcL (4.19-5.50); Red Cell Distribution Width 17.7 % (11.5-14.5)
[2018-10-15 04:48] LABS: INR 1.4; Prothrombin Time 15.6 Seconds (9.4-12.1)
[2018-10-15 05:42] LABS: Alanine Aminotransferase > 500 Units/L (7-52); Albumin 3.3 g/dL (3.5-5.7); Albumin/Globulin Ratio 0.8 (1.1-2.2); Alkaline Phosphatase 150 Units/L (34-104); Aspartate Amino Transferase 1420 Units/L (13-39); BUN/Creatinine Ratio 13 (6-26); Bilirubin,Total 6.3 mg/dL (0.3-1.0); Blood Urea Nitrogen 8 mg/dL (6-20); Calcium 9.1 mg/dL (8.6-10.3); Carbon Dioxide 23 mEq/L (23-29); Chloride 104 mEq/L (98-107); Glucose 98 mg/dL (70-105); Magnesium 1.6 mg/dL (1.6-2.6); Osmolality,Calculated 278 (280-300); Potassium 3.2 mEq/L (3.5-5.1); Sodium 135 mEq/L (136-145); Total Protein 7.3 g/dL (6.4-8.9); eGFR For Non-African Americans > 60 (> 60)
[2018-10-15] MEDS: Nicotine 2 MG GUM BC SCH ×8 (05:48→22:30)
[2018-10-15] MEDS: Insulin LISPRO 300 UNITS/3 ML VIAL SQ SCH ×4 (08:12→21:22)
[2018-10-15] MEDS: Lactulose Oral Soln 20 GM/30 ML UDC PO SCH ×3 (08:15→21:21)
[2018-10-15] MEDS: Thiamine (B-1) 100 MG TABLET PO SCH (08:16)
[2018-10-15] MEDS: amLODIPine 5 MG TABLET PO SCH (08:16)
[2018-10-15] MEDS: Vitamin B Complex/Vit C/Vit E 1 EACH TABLET PO SCH (08:16)
[2018-10-15] MEDS: Gabapentin 100 MG CAPSULE PO SCH ×3 (08:16→20:44)
[2018-10-15] MEDS: Folic Acid 1 MG TABLET PO SCH (08:16)
--- NOTE | 2018-10-15 09:56 | Internal Med Progress Note ---
<Alvin Mcgovern - Last Filed: 10/15/18 14:43> Hospitalist Progress Note - Encounter Date of Encounter: 10/15/18 Time of Encounter: 09:52 - Subjective Interval History: Patient is a 48 year WM on hospital day 2 here for what he was calling "phukes" on ED admission. He has PMH of alc abuse, HTN, obesity, htn, hep c, IV drug use, hx of DT's and DM II. He appears difficult to arose today. Unattainable ROS today because of patients mental status. Was able to ascertain that he was having headache. Unable to give further details. He also admits to stomach pain that is a 5 out of 10 and other times 7 out of 10. Unable to give further details. - Exam Vitals: Temp Pulse Resp BP Pulse Ox 97.9 F 81 20 144/94 93 10/15/18 06:23 10/15/18 06:23 10/15/18 06:23 10/15/18 06:23 10/15/18 06:23 Exam: - Head Head exam: Present: atraumatic, normocephalic - Eye Eye exam: Present: conjuntiva pink, scleral icterus - ENT ENT exam: Present: mucous membranes moist. - Neck Neck exam general surgery: Present: normal inspection. Absent: thyromegaly - Respiratory Respiratory exam: Present: decreased breath sounds. No rales, rhonchi - Cardiovascular Cardiovascular exam: Present: RRR. No murmurs appreciated. - GI/Abdominal GI/Abdominal exam: Present: distended, soft, tenderness. Mild tenderness noted in RUQ area and LLQ. No peritoneal signs, rebound tenderness or guarding. - Extremities Exam Extremities exam: bilateral purpura. absent joint swelling, pedal edema, tendern ess. - Neurological Exam Neurological exam: Present: alert and moves all extremities - Psychiatric Psychiatric exam: Present: agitated, non-cooperative - Skin Skin exam: Present: dry, warm, mild jaundice. Absent: rash - Assessment and Plan (1) Metabolic encephalopathy Current Visit: Yes Status: Acute Assessment and Plan: Pt has elevated ammonia in setting of acute hepatitis. Ammonia is trending down from 98 yesterday to 91 today. GI has been consulted and on board. On Lactulose day 2. Monitor bowel movements for dosage change. (2) Alcohol dependence with withdrawal Current Visit: No Status: Acute Assessment and Plan: Pt has long standing hx of ETOH abuse. He has had multiple admissions for complaints of withdrawal and has history of requesting Ativan frequently. CIWA protocol has been started. on IV fluids. Folate and thiamine started. In the past he has been seen by psychiatry and was started on Neurontin last visit. He says he no longer takes it (ran out and couldn't get more). On day 2 of neurontin currently. (3) Hepatitis A Current Visit: Yes Status: Acute Assessment and Plan: Pt has markedly elevated liver function. INR 1.4. Hepatitis A IGM positive. (4) Hypokalemia Current Visit: Yes Status: Acute Assessment and Plan: Potassium 2.9 in ED and he was given 40meq PO. Today, Potassium 3.2 and magnesium was 1.6. Patient has been placed on 40 meq potassium chloride and Magnesium sulfate 2 gm. Recheck K in PM. (5) Hepatitis C Current Visit: Yes Status: Chronic Assessment and Plan: Patient has previous history of Hep C. (6) Hepatitis B Current Visit: Yes Status: Suspected Assessment and Plan: Pt presented with markedly elevated liver function. INR 1.4 today. Continue to monitor INR. Admits to IV drug use since last admit. Hep B surface antigen and core IGM positive. Will check surface antibody and delta. (7) Suicidal ideation Current Visit: No Status: Acute Assessment and Plan: Pt reported yesterday in ED that he might harm himself. -Today patient upon questioning refuses that he has suicidal ideation today. -He does not answer when asked if he has homicidal ideation. -States that he did not have a plan -Has a sitter currently. -Continue sitter today. Currently does not have pink slip. (8) DM2 (diabetes mellitus, type 2) Current Visit: No Status: Chronic Assessment and Plan: Pt currently not on any meds. HgbA1C 6.8% in March. Diabetic diet ordered. Patient is on low dose sliding scale. Dose appropriately. (9) Diastolic CHF, chronic Current Visit: No Status: Chronic Assessment and Plan: chronic issue w/ no acute exacerbation. (10) Hypertension Current Visit: No Status: Chronic Assessment and Plan: Pt has hx of HTN. Has not been taking meds. Blood pressure is stable -most likely due to lack of meds plus ETOH withdrawal. PO meds restarted yesterday. Add PRN Hydralazine. (11) Morbid obesity Current Visit: No Status: Chronic Assessment and Plan: chronic issue. (12) Polysubstance abuse Current Visit: No Status: Chronic Assessment and Plan: Pt has chronic history of polysubstance abuse. (13) Tobacco abuse Current Visit: No Status: Chronic Assessment and Plan: cessation counseled. - Time Spent with Patient Total time spent is greater than 50% in coordination of care (as documented) at patient's floor/unit and/or counseling patient: Internal Medicine: Result - Labs CBC & Chem 7: 10/15/18 04:26 10/15/18 04:26 Labs: Short CBC 10/15/18 Range/Units 04:26 WBC 7.2 (4.3-11.1) K/mcL Hgb 13.8 (12.9-16.9) g/dL Hct 41.6 (37.5-50.1) % Plt Count 150 (140-400) K/mcL BMP 10/14/18 10/15/18 14:16 04:26 Sodium 135 L Potassium 3.4 L 3.2 L Chloride 104 Carbon Dioxide 23 BUN 8 Creatinine 0.61 L Glucose 98 Calcium 9.1 Liver Function 10/15/18 Range/Units 04:26 Total Bilirubin 6.3 H (0.3-1.0) mg/dL AST 1420 H (13-39) Units/L ALT > 500 H (7-52) Units/L Alkaline Phosphatase 150 H (34-104) Units/L Albumin 3.3 L (3.5-5.7) g/dL - ABG Interpretation ABG results: PT/INR, D-dimer PT 15.6 Seconds (9.4-12.1) H 10/15/18 04:26 - Impressions Impressions Gallbladder Ultrasound 10/14/18 09:10 IMPRESSION: Limited study due to patient's ability to cooperate for exam. Gallbladder is contracted with thickened, edematous rdz and small amount of suspected pericholecystic fluid. Finding is nonspecific and could represent acute or chronic cholecystitis. A nuclear medicine hepatobiliary scan could be considered to evaluate for acute cholecystitis, biliary function. D/ / 10/14/2018 11:04:16 Travon Roper MD / olive Interpreting Provider: Travon Roper MD Consult Discharge Plan - Plan Referrals: NONE,PCP [Primary Care Provider] - <PalomoMelia - Last Filed: 10/15/18 14:59> Hospitalist Progress Note - Encounter Date of Encounter: 10/15/18 - Exam Vitals: Temp Pulse Resp BP Pulse Ox 98.0 F 75 18 138/77 93 10/15/18 10:24 10/15/18 10:24 10/15/18 10:24 10/15/18 10:24 10/15/18 10:24 - Assessment and Plan (1) Hypertension Current Visit: No Status: Chronic (2) Polysubstance abuse Current Visit: No Status: Chronic (3) Morbid obesity with BMI of 50.0-59.9, adult Current Visit: No Status: Chronic (4) Tobacco abuse Current Visit: No Status: Chronic (5) Alcohol dependence with withdrawal Current Visit: No Status: Acute (6) Suicidal ideation Current Visit: No Status: Acute (7) DM2 (diabetes mellitus, type 2) Current Visit: No Status: Chronic (8) Diastolic CHF, chronic Current Visit: No Status: Chronic (9) Hepatitis A Current Visit: Yes Status: Acute (10) Hepatitis B Current Visit: Yes Status: Suspected (11) Hypokalemia Current Visit: Yes Status: Acute (12) Hepatic encephalopathy Current Visit: Yes Status: Deleted (13) Hepatitis C Current Visit: Yes Status: Chronic - Time Spent with Patient Total time spent is greater than 50% in coordination of care (as documented) at patient's floor/unit and/or counseling patient: Internal Medicine: Result - Labs CBC & Chem 7: 10/15/18 04:26 10/15/18 04:26 Labs: Short CBC 10/15/18 Range/Units 04:26 WBC 7.2 (4.3-11.1) K/mcL Hgb 13.8 (12.9-16.9) g/dL Hct 41.6 (37.5-50.1) % Plt Count 150 (140-400) K/mcL BMP 10/14/18 10/15/18 14:16 04:26 Sodium 135 L Potassium 3.4 L 3.2 L Chloride 104 Carbon Dioxide 23 BUN 8 Creatinine 0.61 L Glucose 98 Calcium 9.1 Liver Function 10/15/18 Range/Units 04:26 Total Bilirubin 6.3 H (0.3-1.0) mg/dL AST 1420 H (13-39) Units/L ALT > 500 H (7-52) Units/L Alkaline Phosphatase 150 H (34-104) Units/L Albumin 3.3 L (3.5-5.7) g/dL - ABG Interpretation ABG results: PT/INR, D-dimer PT 15.6 Seconds (9.4-12.1) H 10/15/18 04:26 - Attending Attestation The history, physical exam, and medical decision making was performed by medical student Shaniqua either while I was physically present and actively involved or I personally re-performed the exam and medical decision making. I have verified the accuracy of the medical student's documentation with regards to the history, physical exam findings, and medical decision making. Mr Adams is admitted for metabolic encephalopathy, etoh withdrawal, hepatic encephalopathy with acute hepatitis infection Pt asleep but awakes to name. he is feeling unwell. admits to hand tremors, anxiety, palpitations, nausea, abd cramps, muscle aches. He denies hallucinations at this time. He denies confusion and appears to answer all questions appropriately. No emesis or diarrhea. not currently having cough and no sob or wheezing. He denies any suicidal thoughts. He is eager to feel better physically. He denies any opioid use that he could be withdrawing from as well. He had a more detailed conversation with senior resident and denied si/hi and dneied any intent or plan to harm self. gen- alert, awake,appears stated age, obese eyes- pupils equal round , + scleral icterus, no conjunctival pallor cv- reg rate and rhythm, normal s1,s2, no murmurs appreciated, no le edema lungs- ctabl, no wheezing, rhonchi or crackles, normal resp effort on ra abd- soft, + ruq tenderness, no hsm can be appreciated given body habitus, non distended, + bs, cannot appreciate fluid wave skin- no rash, + faint jaundice, no pallor neuro- AAOxperson, hospital setting, situation, CN grossly intact, no focal deficits, no hand tremor appreciated Metabolic encephalopathy, improving multifactorial- hepatic nature 2/2 acute hepatitis infection and elevated ammonia level, etoh withdrawal with ativan -cont to monitor, treatment for contributing factors as below, sitter and fall precautions Hepatic Encephalopathy Acute Hepatitis A and B infections Hx Hep C infection No identification of cirrhosis on imaging -INR stable, tbili and transaminases overall slight down trend, cont to monitor cmp -gi following, supportive care, lactulose and will titrate to goal 3-4 bms daily -if worsened liver function occurs this admission low threshold transfer to tertiary center with hepatology available ETOH abuse ETOH withdrawal with hx DTs -ciwa, thiamine/folate/mvi, monitor and replete lytes, tele -neurontin for etoh w/d in past and started by admitting hospitalist, will cont Hypokalemia- IV mag and oral K+ today, f/u repeat K later today DM- SSI and accu checks, prn hypoglycemics HTN- improved with restarting home meds, cont to monitor, CCB + BB + ACEI, will uptitrate as needed, will require outpt fu on dc Morbid obesity with BMI 47.5 - diet education Reported SI in ED- he is no longer voicing SI/AVH, may cont sitter with encephalopathy, will cont to monitor, at this time no psychiatric eval given multiple medical conditions contributing to encephalopathy and pt without si/hi/avh currently, if situation changes will get suicide precautions and psych consult ordered immediately scds for vte ppx given thrombocytopenia chronically and elevated inr <Alvin Mcgovern P - Last Filed: 10/15/18 14:43> (2) Alcohol dependence with withdrawal Qualifiers: Complication of substance-induced condition: with delirium Qualified Code(s): F10.231 - Alcohol dependence with withdrawal delirium (3) Hepatitis A Qualifiers: Hepatic coma status: without hepatic coma Qualified Code(s): B15.9 - Hepatitis A without hepatic coma (5) Hepatitis C Qualifiers: Viral hepatitis chronicity: unspecified Hepatic coma status: without hepatic coma Qualified Code(s): B19.20 - Unspecified viral hepatitis C without hepatic coma (6) Hepatitis B Qualifiers: Viral hepatitis chronicity: acute Hepatic coma status: without hepatic coma Hepatitis delta agent presence: without delta-agent Qualified Code(s): B16.9 - Acute hepatitis B without delta-agent and without hepatic coma (8) DM2 (diabetes mellitus, type 2) Qualifiers: Diabetes mellitus custodial insulin use: without custodial use Diabetes mellitus complication status: without complication Qualified Code(s): E11.9 - Type 2 diabetes mellitus without complications (10) Hypertension Qualifiers: Hypertension type: essential hypertension Qualified Code(s): I10 - Essential (primary) hypertension <Melia Culver - Last Filed: 10/15/18 14:59> (1) Hypertension Qualifiers: Hypertension type: essential hypertension Qualified Code(s): I10 - Essential (primary) hypertension (5) Alcohol dependence with withdrawal Qualifiers: Complication of substance-induced condition: with delirium Qualified Code(s): F10.231 - Alcohol dependence with withdrawal delirium (7) DM2 (diabetes mellitus, type 2) Qualifiers: Diabetes mellitus termite treater insulin use: without custodial use Diabetes mellitus complication status: without complication Qualified Code(s): E11.9 - Type 2 diabetes mellitus without complications (9) Hepatitis A Qualifiers: Hepatic coma status: without hepatic coma Qualified Code(s): B15.9 - Hepatitis A without hepatic coma (10) Hepatitis B Qualifiers: Viral hepatitis chronicity: acute Hepatic coma status: without hepatic coma Hepatitis delta agent presence: without delta-agent Qualified Code(s): B16.9 - Acute hepatitis B without delta-agent and without hepatic coma (13) Hepatitis C Qualifiers: Viral hepatitis chronicity: unspecified Hepatic coma status: without hepatic coma Qualified Code(s): B19.20 - Unspecified viral hepatitis C without hepatic coma
--- NOTE | 2018-10-15 10:22 | Gastroenterology Progress Note ---
<Ngozi Lea - Last Filed: 10/15/18 10:19> Date of Encounter: 10/15/18 Time of Encounter: 08:45 - Time Spent With Patient Total time spent is greater than 50% in coordination of care (as documented) at patient's floor/unit and/or counseling patient: - Subjective Interval history: 48 year old male who presented with alcohol withdrawals, Hep a and aute Hep b. LFTs were very elevated on admission, are trending down. DF 18.5, MELD 19. Dx: alcohol withdrawal Hepatitis A Hepatitis B (acute) hepatitis C Plan: continue IVF and symptomatic treatment. pt is on lactulose and ativan. He is lethargic. Labs are trending down, continue to monitor. - Constitutional Vitals: Temp Pulse Resp BP Pulse Ox 97.9 F 81 20 144/94 93 10/15/18 06:23 10/15/18 06:23 10/15/18 06:23 10/15/18 06:23 10/15/18 06:23 Exam: CONSTITUTIONAL:very drowsy, awakens briefly, HEAD:normocephalic.EYES: jaundice.NECK:no obvious swelling.HEART:regular rate and rhythm, no murmurs.LUNGS:bilateral poor air entry.ABDOMEN:non distended, soft, tender to epigastric area, no masses pulpable, no organomegaly.RECTAL EXAM:Deferred.EXTREMITIES:no clubbing, cyanosis or edema, obesity noted, brown disoloration to lower legs.SKIN:mild jaundice.NEUROLOGIC:no obvious focal defect. Results - Labs CBC & Chem 7: 10/15/18 04:26 10/15/18 04:26 Labs: Last Result Calcium 9.1 mg/dL (8.6-10.3) 10/15/18 04:26 Salicylates < 2.5 mg/dL (15.0-30.0) L 10/14/18 05:03 Urine Opiates Screen Negative ng/mL (Uvnpqb=453) 10/14/18 03:00 Entire Visit Hgb 13.8 g/dL (12.9-16.9) 10/15/18 04:26 Hct 41.6 % (37.5-50.1) 10/15/18 04:26 PT 15.6 Seconds (9.4-12.1) H 10/15/18 04:26 Total Bilirubin 6.3 mg/dL (0.3-1.0) H 10/15/18 04:26 AST 1420 Units/L (13-39) H 10/15/18 04:26 ALT > 500 Units/L (7-52) H 10/15/18 04:26 Ammonia 91 mcmol/L (16-53) H 10/15/18 04:26 Lipase 52 Units/L (11-82) 10/14/18 05:03 Acetaminophen < 10 mcg/mL (10-20) L 10/14/18 05:03 - ABG ABG results: PT/INR, D-dimer PT 15.6 Seconds (9.4-12.1) H 10/15/18 04:26 - Impressions Impressions Gallbladder Ultrasound 10/14/18 09:10 IMPRESSION: Limited study due to patient's ability to cooperate for exam. Gallbladder is contracted with thickened, edematous rdz and small amount of suspected pericholecystic fluid. Finding is nonspecific and could represent acute or chronic cholecystitis. A nuclear medicine hepatobiliary scan could be considered to evaluate for acute cholecystitis, biliary function. D/ / 10/14/2018 11:04:16 Travon Roper MD / [facility] Interpreting Provider: Travon Roper MD Consult Discharge Plan - Plan Referrals: Joe Bell MD [Partnered Physician] - <Deacon Macias - Last Filed: 10/16/18 08:11> Date of Encounter: 10/15/18 Time of Encounter: 14:00 - Time Spent With Patient Total time spent is greater than 50% in coordination of care (as documented) at patient's floor/unit and/or counseling patient: - Constitutional Vitals: Temp Pulse Resp BP Pulse Ox 98.6 F 94 18 171/96 94 10/16/18 01:06 10/16/18 01:06 10/16/18 01:06 10/16/18 01:06 10/16/18 01:06 Results - Labs CBC & Chem 7: 10/15/18 04:26 10/15/18 15:11 Labs: Last Result Calcium 9.1 mg/dL (8.6-10.3) 10/15/18 04:26 Salicylates < 2.5 mg/dL (15.0-30.0) L 10/14/18 05:03 Urine Opiates Screen Negative ng/mL (Xpslid=151) 10/14/18 03:00 Entire Visit Hgb 13.8 g/dL (12.9-16.9) 10/15/18 04:26 Hct 41.6 % (37.5-50.1) 10/15/18 04:26 PT 15.6 Seconds (9.4-12.1) H 10/15/18 04:26 Total Bilirubin 6.3 mg/dL (0.3-1.0) H 10/15/18 04:26 AST 1420 Units/L (13-39) H 10/15/18 04:26 ALT > 500 Units/L (7-52) H 10/15/18 04:26 Ammonia 91 mcmol/L (16-53) H 10/15/18 04:26 Lipase 52 Units/L (11-82) 10/14/18 05:03 Acetaminophen < 10 mcg/mL (10-20) L 10/14/18 05:03 - ABG ABG results: PT/INR, D-dimer PT 15.6 Seconds (9.4-12.1) H 10/15/18 04:26 - Attending Attestation I have personally performed a face to face evaluation on this patient. I have reviewed and agree with the care plan. History and Exam by me shows: Patient since seen in his room sleepy but arousable still confused. Assessment: Patient with history of alcohol abuse now with hepatitis A and B been elevated LFTs. Recommendation: Continue CIWA protocol for his alcohol abuse. supportive care for hepatitis A and B.
[2018-10-15] MEDS ORDERED: Potassium Chloride Elixir 20 MEQ/15 ML UDC PO ONE (18:59)
[2018-10-15] MEDS: hydrOXYzine pamoate 25 MG CAPSULE PO PRN ×2 (19:00→21:03)
[2018-10-15] MEDS: Mirtazapine 15 MG TABLET PO SCH (20:44)
[2018-10-16] MEDS: *HR* LORazepam 2 MG/ML VIAL IVP PRN ×4 (00:08→18:31)
[2018-10-16] MEDS: Nicotine 2 MG GUM BC SCH ×9 (05:55→23:47)
[2018-10-16] MEDS: Insulin LISPRO 300 UNITS/3 ML VIAL SQ SCH ×4 (07:35→21:04)
[2018-10-16 08:57] LABS: Hematocrit 41.3 % (37.5-50.1); Hemoglobin 14.1 g/dL (12.9-16.9); Mean Corpuscular HGB Conc 34.1 g/dL (31.6-35.5); Mean Corpuscular Hemoglobin 29.1 pg (28.0-33.3); Mean Corpuscular Volume 85.3 fL (83.0-100.0); Mean Platelet Volume 11.3 fL (9.4-12.4); Platelet Count 157 K/mcL (140-400); Red Blood Count 4.84 M/mcL (4.19-5.50); Red Cell Distribution Width 18.3 % (11.5-14.5)
[2018-10-16] MEDS: Lactulose Oral Soln 20 GM/30 ML UDC PO SCH ×2 (09:48→20:59)
[2018-10-16] MEDS: Thiamine (B-1) 100 MG TABLET PO SCH (09:48)
[2018-10-16] MEDS: Gabapentin 100 MG CAPSULE PO SCH ×3 (09:49→20:57)
[2018-10-16] MEDS: Folic Acid 1 MG TABLET PO SCH (09:49)
[2018-10-16] MEDS: Vitamin B Complex/Vit C/Vit E 1 EACH TABLET PO SCH (09:49)
[2018-10-16] MEDS: amLODIPine 5 MG TABLET PO SCH (09:49)
--- NOTE | 2018-10-16 10:18 | Internal Med Progress Note ---
Addendum entered and electronically signed by Melia Culver DO 10/16/18 15:09: spoke with GI team- anticipate increased t bili in setting acute hepatitis. gi deepthi transaminases down trending/stable that is reassuring. no steroids needed, start PPI and cont supportive care. of note- nursing staff has reported his hepatitis status Original Note: <Alvin Mcgovern P - Last Filed: 10/16/18 13:32> Hospitalist Progress Note - Encounter Date of Encounter: 10/16/18 Time of Encounter: 13:33 - Subjective Interval History: Patient is a 48 year WM on hospital day 3 here for what he was calling "shakes" on ED admission. He has PMH of alc abuse, HTN, obesity, htn, hep c, IV drug use, hx of DT's and DM II. He appears well nourished, well-developed and in mild distress today. Patient is uncooperative with questioning. Unattainable ROS. Was able to ascertain that he is still having a "head cold". No further details. He also told me abdominal pain was about a 7-8 out of 10 and that pain is all over his abdomen. - Exam Vitals: Temp Pulse Resp BP Pulse Ox 98.1 F 101 22 168/99 96 10/16/18 08:50 10/16/18 08:50 10/16/18 08:50 10/16/18 08:50 10/16/18 08:50 Exam: - Head Head exam: Present: atraumatic, normocephalic - Eye Eye exam: Present: conjuntiva pink, scleral icterus - ENT ENT exam: Present: mucous membranes moist. - Neck Neck exam general surgery: Present: normal inspection. Absent: thyromegaly - Respiratory Respiratory exam: Present: decreased breath sounds. No rales, rhonchi - Cardiovascular Cardiovascular exam: Present: RRR. No murmurs appreciated. - GI/Abdominal GI/Abdominal exam: Present: distended, soft, tenderness. Mild tenderness noted in RUQ area and LLQ. No peritoneal signs, rebound tenderness or guarding. - Extremities Exam Extremities exam: bilateral purpura. absent joint swelling, pedal edema, tenderness. - Neurological Exam Neurological exam: Present: alert and moves all extremities - Psychiatric Psychiatric exam: Present: agitated, non-cooperative - Skin Skin exam: Present: dry, warm, mild jaundice. Absent: rash - Assessment and Plan (1) Metabolic encephalopathy Current Visit: Yes Status: Acute Assessment and Plan: Pt has elevated ammonia in setting of acute hepatitis. Liver enzymes trending down. Ammonia is trending down from 91 yesterday to 86 today. GI has been consulted and on board. Appreciate recommendations. Lactulose dosage upped. Currently on Lactulose day 3. Monitor bowel movements for dosage change. (2) Alcohol dependence with withdrawal Current Visit: Yes Status: Acute Assessment and Plan: Pt has long standing hx of ETOH abuse. He has had multiple admissions for complaints of withdrawal and has history of requesting Ativan frequently. CIWA protocol has been started. Not on IV fluids currently. Folate and thiamine started. In the past he has been seen by psychiatry and was started on Neurontin last visit. He says he no longer takes it (ran out and couldn't get more). On day 3 of neurontin currently. (3) Hepatitis A Current Visit: Yes Status: Acute Assessment and Plan: Pt has markedly elevated liver function. INR unavailable today. Hepatitis A IGM positive. (4) Hypokalemia Current Visit: Yes Status: Acute Assessment and Plan: Potassium 2.9 in ED and he was given 40meq PO. Yesterday, Potassium 3.2 and magnesium was 1.6. Patient has been placed on 40 meq potassium chloride and Magnesium sulfate 2 gm. Today patient's potassium is 3.7, magnesium unavailable. Continue to monitor potassium. (5) Hepatitis C Current Visit: Yes Status: Chronic Assessment and Plan: Patient has previous history of Hep C. (6) Hepatitis B Current Visit: Yes Status: Suspected Assessment and Plan: Patient has previous history of Hep C. (7) Suicidal ideation Current Visit: Yes Status: Acute Assessment and Plan: Pt reported two days ago in ED that he might harm himself. -Yesterday patient upon questioning refuses that he has suicidal ideation. -He does not answer when asked if he has homicidal ideation. -States that he did not have a plan -Has a sitter currently. -Continue sitter today. Currently does not have pink slip. (8) DM2 (diabetes mellitus, type 2) Current Visit: Yes Status: Chronic Assessment and Plan: Pt currently not on any meds. HgbA1C 6.8% in March. Diabetic diet ordered. Patient is on low dose sliding scale. Dose appropriately. (9) Diastolic CHF, chronic Current Visit: Yes Status: Chronic Assessment and Plan: chronic issue w/ no acute exacerbation. (10) Hypertension Current Visit: Yes Status: Chronic (11) Morbid obesity Current Visit: Yes Status: Chronic Assessment and Plan: chronic issue. (12) Polysubstance abuse Current Visit: Yes Status: Chronic Assessment and Plan: Pt has chronic history of polysubstance abuse. (13) Tobacco abuse Current Visit: Yes Status: Chronic Assessment and Plan: cessation counseled. - Time Spent with Patient Total time spent is greater than 50% in coordination of care (as documented) at patient's floor/unit and/or counseling patient: Internal Medicine: Result - Labs CBC & Chem 7: 10/16/18 08:44 10/16/18 08:44 Labs: Short CBC 10/16/18 Range/Units 08:44 WBC 7.6 (4.3-11.1) K/mcL Hgb 14.1 (12.9-16.9) g/dL Hct 41.3 (37.5-50.1) % Plt Count 157 (140-400) K/mcL BMP 10/15/18 15:11 Potassium 3.3 L - ABG Interpretation ABG results: PT/INR, D-dimer PT 15.6 Seconds (9.4-12.1) H 10/15/18 04:26 Consult Discharge Plan - Plan Referrals: Joe Bell MD [Partnered Physician] - <Melia Culver - Last Filed: 10/16/18 15:08> Hospitalist Progress Note - Encounter Date of Encounter: 10/16/18 - Exam Vitals: Temp Pulse Resp BP Pulse Ox 98.8 F 96 22 156/92 95 10/16/18 11:05 10/16/18 11:05 10/16/18 11:05 10/16/18 11:05 10/16/18 11:05 - Assessment and Plan (1) Hypertension Current Visit: Yes Status: Chronic (2) Polysubstance abuse Current Visit: Yes Status: Chronic (3) Morbid obesity with BMI of 50.0-59.9, adult Current Visit: No Status: Chronic (4) Tobacco abuse Current Visit: Yes Status: Chronic (5) Alcohol dependence with withdrawal Current Visit: Yes Status: Acute (6) Suicidal ideation Current Visit: No Status: Acute (7) DM2 (diabetes mellitus, type 2) Current Visit: Yes Status: Chronic (8) Diastolic CHF, chronic Current Visit: Yes Status: Chronic (9) Hepatitis A Current Visit: Yes Status: Acute (10) Hepatitis B Current Visit: Yes Status: Suspected (11) Hypokalemia Current Visit: Yes Status: Acute (12) Hepatic encephalopathy Current Visit: Yes Status: Deleted (13) Hepatitis C Current Visit: Yes Status: Chronic - Time Spent with Patient Total time spent is greater than 50% in coordination of care (as documented) at patient's floor/unit and/or counseling patient: Internal Medicine: Result - Labs CBC & Chem 7: 10/16/18 08:44 10/16/18 08:44 Labs: Short CBC 10/16/18 Range/Units 08:44 WBC 7.6 (4.3-11.1) K/mcL Hgb 14.1 (12.9-16.9) g/dL Hct 41.3 (37.5-50.1) % Plt Count 157 (140-400) K/mcL BMP 10/15/18 10/16/18 15:11 08:44 Sodium 133 L Potassium 3.3 L 3.7 Chloride 103 Carbon Dioxide 22 L BUN 9 Creatinine 0.61 L Glucose 154 H Calcium 9.4 Liver Function 10/16/18 Range/Units 08:44 Total Bilirubin 7.1 H (0.3-1.0) mg/dL AST 1272 H (13-39) Units/L ALT > 500 H (7-52) Units/L Alkaline Phosphatase 162 H (34-104) Units/L Albumin 3.4 L (3.5-5.7) g/dL - ABG Interpretation ABG results: PT/INR, D-dimer PT 15.6 Seconds (9.4-12.1) H 10/15/18 04:26 - Attending Attestation The history, physical exam, and medical decision making was performed by medical student Shaniqua either while I was physically present and actively involved or I personally re-performed the exam and medical decision making. I have verified the accuracy of the medical student's documentation with regards to the history, physical exam findings, and medical decision making. Mr Adams is admitted for metabolic encephalopathy, etoh withdrawal, hepatic encephalopathy with acute hepatitis infection Pt asleep but awakes to name. sitter at bedside. He is somnolent but becomes more interactive. he has muscle aches, worsened abd pain, + nasuea, no emesis. denies cp or sob. + palpitations and hand tremor and anxious feeling though appears calm. He is aware of being in the hospital. He denies suicidal thoughts or plan or intent. gen- asleep, awakes too name, somnolent, appears stated age, obese, becomes more awake during exam eyes- pupils equal round , + faint scleral icterus, no conjunctival pallor cv- reg rate and rhythm, normal s1,s2, no murmurs appreciated, no le edema lungs- ctabl, no wheezing, rhonchi or crackles, normal resp effort on ra abd- soft, non tender, no hsm can be appreciated given body habitus, non distended, + bs skin- no rash, + faint jaundice, no pallor neuro- AAOxperson, hospital setting, situation, CN grossly intact, no focal deficits,+ bl hand tremor Metabolic encephalopathy, very slowly improving multifactorial- hepatic nature 2/2 acute hepatitis infection and elevated ammonia level, etoh withdrawal with ativan -cont to monitor, treatment for contributing factors as below, sitter and fall precautions, holding home methadone and other sedating meds given he requires ativan for etoh w/d which complicates his mental status picture given he is a cirrhotic and otherwise would not be recommended to take this medication Hepatic Encephalopathy Acute Hepatitis A and B infections Hx Hep C infection No identification of cirrhosis on imaging -INR pending, tbili increased and transaminases overall slight down trend, cont to monitor cmp -gi following, supportive care, lactulose increased, titrate to goal 3-4 bms daily -if worsened liver function occurs this admission low threshold transfer to tertiary center with hepatology available -gi team updated to change in labs today and pending recs ETOH abuse ETOH withdrawal with hx DTs -ciwa, thiamine/folate/mvi, monitor and replete lytes, tele Hypokalemia-resolved, cont to monitor DM- SSI and accu checks, prn hypoglycemics HTN- improved with restarting home meds, , increase atenolol today, cont CCB + BB + ACEI, will uptitrate as needed, will require outpt fu on dc Morbid obesity with BMI 47.5 - diet education Reported SI in ED- he is no longer voicing SI/AVH, may cont sitter with encephalopathy, will cont to monitor, at this time no psychiatric eval given multiple medical conditions contributing to encephalopathy and pt without si/hi/avh currently, if situation changes will get suicide precautions and psych consult ordered immediately scds for vte ppx given thrombocytopenia chronically and elevated inr SITTER AT THIS TIME FOR ENCEPHALOPATHY NOT SUICIDAL IDEATION <Alvin Mcgovern - Last Filed: 10/16/18 13:32> (2) Alcohol dependence with withdrawal Qualifiers: Complication of substance-induced condition: with delirium Qualified Code(s): F10.231 - Alcohol dependence with withdrawal delirium (3) Hepatitis A Qualifiers: Hepatic coma status: without hepatic coma Qualified Code(s): B15.9 - Hepatitis A without hepatic coma (5) Hepatitis C Qualifiers: Viral hepatitis chronicity: unspecified Hepatic coma status: without hepatic coma Qualified Code(s): B19.20 - Unspecified viral hepatitis C without hepatic coma (6) Hepatitis B Qualifiers: Viral hepatitis chronicity: acute Hepatic coma status: without hepatic coma Hepatitis delta agent presence: without delta-agent Qualified Code(s): B16.9 - Acute hepatitis B without delta-agent and without hepatic coma (8) DM2 (diabetes mellitus, type 2) Qualifiers: Diabetes mellitus keno terminal operator insulin use: without keno terminal operator use Diabetes mellitus complication status: without complication Qualified Code(s): E11.9 - Type 2 diabetes mellitus without complications (10) Hypertension Qualifiers: Hypertension type: essential hypertension Qualified Code(s): I10 - Essential (primary) hypertension <Melia Culver - Last Filed: 10/16/18 15:08> (1) Hypertension Qualifiers: Hypertension type: essential hypertension Qualified Code(s): I10 - Essential (primary) hypertension (5) Alcohol dependence with withdrawal Qualifiers: Complication of substance-induced condition: with delirium Qualified Code(s): F10.231 - Alcohol dependence with withdrawal delirium (7) DM2 (diabetes mellitus, type 2) Qualifiers: Diabetes mellitus alf insulin use: without alf use Diabetes mellitus complication status: without complication Qualified Code(s): E11.9 - Type 2 diabetes mellitus without complications (9) Hepatitis A Qualifiers: Hepatic coma status: without hepatic coma Qualified Code(s): B15.9 - Hepatitis A without hepatic coma (10) Hepatitis B Qualifiers: Viral hepatitis chronicity: acute Hepatic coma status: without hepatic coma Hepatitis delta agent presence: without delta-agent Qualified Code(s): B16.9 - Acute hepatitis B without delta-agent and without hepatic coma (13) Hepatitis C Qualifiers: Viral hepatitis chronicity: unspecified Hepatic coma status: without hepatic coma Qualified Code(s): B19.20 - Unspecified viral hepatitis C without hepatic coma
[2018-10-16 12:18] LABS: Alanine Aminotransferase > 500 Units/L (7-52); Albumin 3.4 g/dL (3.5-5.7); Albumin/Globulin Ratio 0.8 (1.1-2.2); Alkaline Phosphatase 162 Units/L (34-104); BUN/Creatinine Ratio 15 (6-26); Bilirubin,Total 7.1 mg/dL (0.3-1.0); Blood Urea Nitrogen 9 mg/dL (6-20); Calcium 9.4 mg/dL (8.6-10.3); Carbon Dioxide 22 mEq/L (23-29); Chloride 103 mEq/L (98-107); Globulin 4.3 g/dL (2.4-3.5); Glucose 154 mg/dL (70-105); Osmolality,Calculated 278 (280-300); Potassium 3.7 mEq/L (3.5-5.1); Sodium 133 mEq/L (136-145); Total Protein 7.7 g/dL (6.4-8.9); eGFR For Non-African Americans > 60 (> 60)
[2018-10-16 12:19] LABS: Aspartate Amino Transferase 1272 Units/L (13-39)
[2018-10-16] MEDS: Nystatin POWDER 30 GM BOTTLE TP SCH ×2 (16:04→23:47)
[2018-10-16 16:25] LABS: INR 1.3; Prothrombin Time 15.1 Seconds (9.4-12.1)
[2018-10-16] MEDS: Pantoprazole 40 MG VIAL IVP SCH (18:31)
[2018-10-16] MEDS: Mirtazapine 15 MG TABLET PO SCH (20:57)
[2018-10-17] MEDS: *HR* LORazepam 2 MG/ML VIAL IVP PRN ×5 (03:21→21:55)
[2018-10-17] MEDS: Nicotine 2 MG GUM BC SCH ×9 (05:49→22:32)
[2018-10-17] MEDS: Pantoprazole 40 MG VIAL IVP SCH ×2 (05:49→17:33)
[2018-10-17 06:56] LABS: Hematocrit 42.8 % (37.5-50.1); Hemoglobin 14.3 g/dL (12.9-16.9); Mean Corpuscular HGB Conc 33.4 g/dL (31.6-35.5); Mean Corpuscular Hemoglobin 29.1 pg (28.0-33.3); Mean Corpuscular Volume 87.2 fL (83.0-100.0); Mean Platelet Volume 11.9 fL (9.4-12.4); Platelet Count 198 K/mcL (140-400); Red Blood Count 4.91 M/mcL (4.19-5.50); Red Cell Distribution Width 19.3 % (11.5-14.5)
[2018-10-17 07:04] LABS: INR 1.4
--- NOTE | 2018-10-17 08:41 | Internal Med Progress Note ---
<Damon Ayala - Last Filed: 10/17/18 13:50> Hospitalist Progress Note - Encounter Date of Encounter: 10/17/18 Time of Encounter: 08:39 - Subjective Interval History: Patient seen and examined resting comfortably in bed. Patient continues to require Ativan per [facility] protocol. Patient had an elevated blood pressure overnight and required IV hydralazine. Patient's atenolol dose was increased today. Ammonia level is higher today. Patient's lactulose dose was increased again today. He took his morning dose of Lactulose with lunch today. Patient was started on PPI per GI recommendations. - Exam Vitals: Temp Pulse Resp BP Pulse Ox 98 F 93 22 161/74 94 10/17/18 04:57 10/17/18 04:57 10/17/18 04:57 10/17/18 07:09 10/17/18 04:57 Exam: Gen.: NAD, morbidly obese, well-nourished, well-developed. - Head Head exam: Present: atraumatic, normocephalic - Eye Eye exam: Present: conjuntiva pink, scleral icterus - ENT ENT exam: Present: mucous membranes moist. - Neck Neck exam general surgery: Present: normal inspection. Absent: thyromegaly - Respiratory Respiratory exam: Present: decreased breath sounds. No rales, rhonchi - Cardiovascular Cardiovascular exam: Present: RRR. No murmurs appreciated. - GI/Abdominal GI/Abdominal exam: Present: distended, soft, tenderness. Mild tenderness noted in RUQ area and LLQ. No peritoneal signs, rebound tenderness or guarding. - Extremities Exam Extremities exam: bilateral purpura. absent joint swelling, pedal edema, tenderness. - Neurological Exam Neurological exam: Present: alert and moves all extremities - Psychiatric Psychiatric exam: Present: agitated, non-cooperative - Skin Skin exam: Present: dry, warm, mild jaundice. Absent: rash - Assessment and Plan (1) Hepatic encephalopathy Current Visit: Yes Status: Deleted Assessment and Plan: Pt has elevated ammonia in setting of acute hepatitis Liver enzymes trending down. Ammonia is trending up today. Lactulose dosage increased. Titrate dose to 3 bowel movements per day. (2) Alcohol dependence with withdrawal Current Visit: Yes Status: Acute Assessment and Plan: Pt has long standing hx of ETOH abuse. He has had multiple admissions for complaints of withdrawal and has history of requesting Ativan frequently. Continue Ativan per [facility] protocol Continue Folate and thiamine In the past he has been seen by psychiatry and was started on Neurontin during his last visit. He says he no longer takes it (ran out and couldn't get more). Continue neurontin (3) Hepatitis A Current Visit: Yes Status: Acute Assessment and Plan: Pt has markedly elevated liver function. Hepatitis A IGM positive. Anticipate increased total bili in setting acute hepatitis. Transaminases are down trending/stable. No steroids needed, continue PPI and supportive care. Infection prevention nursing staff has reported his hepatitis status (4) Hepatitis B Current Visit: Yes Status: Suspected Assessment and Plan: Pt presented with markedly elevated liver function. Admits to IV drug use since last admit. Hep B surface antigen and core IGM positive. Surface antibody is low. Supportive care for now. Outpatient follow-up for potential hepatitis B booster vaccine. (5) Hepatitis C Current Visit: Yes Status: Chronic Assessment and Plan: Patient has known history of Hep C due to IV drug use. (6) Hypertension Current Visit: Yes Status: Chronic Assessment and Plan: Pt has hx of HTN. Has not been taking meds. Blood pressure currently elevated due to ETOH withdrawal. Atenolol PO dosage increased today. Continue PRN Hydralazine. If remains high may benefit from Clonidine PRN with ETOH withdrawal. (7) Polysubstance abuse Current Visit: Yes Status: Chronic Assessment and Plan: Pt has chronic history of polysubstance abuse. (8) Suicidal ideation Current Visit: No Status: Resolved Assessment and Plan: Pt reported in ED that he might harm himself on admission. Sitter at bedside. Yesterday patient upon questioning refuses that he has suicidal ideation. He does not answer when asked if he has homicidal ideation. States that he does not have a plan Has a sitter currently. Continue sitter today. Currently does not have pink slip. May need psychiatry evaluation once medically stable. (9) DM2 (diabetes mellitus, type 2) Current Visit: Yes Status: Chronic Assessment and Plan: Pt currently not on any meds. HgbA1C 6.8% in March. Will check sugars and cover with low dose sliding scale. Diabetic diet ordered. (10) Diastolic CHF, chronic Current Visit: No Status: Chronic Assessment and Plan: Chronic issue with no acute exacerbation. (11) Hypokalemia Current Visit: Yes Status: Acute Assessment and Plan: Potassium 2.9 on admission and potassium was given. Recheck K in AM. (12) Hypomagnesemia Current Visit: No Status: Acute Assessment and Plan: Secondary to alcohol dependence. Replete magnesium and continue to monitor. (13) Tobacco abuse Current Visit: Yes Status: Chronic Assessment and Plan: Chronic issue. Nicotine gum. (14) BMI 40.0-44.9, adult Current Visit: Yes Status: Chronic Assessment and Plan: BMI 48. Lifestyle modification DVT Prophylaxis: SCDs for vte ppx given thrombocytopenia chronically and elevated inr - Time Spent with Patient Total time spent is greater than 50% in coordination of care (as documented) at patient's floor/unit and/or counseling patient: Internal Medicine: Result - Labs CBC & Chem 7: 10/17/18 06:42 10/17/18 06:42 Labs: Short CBC 10/16/18 10/17/18 Range/Units 08:44 06:42 WBC 7.6 8.8 (4.3-11.1) K/mcL Hgb 14.1 14.3 (12.9-16.9) g/dL Hct 41.3 42.8 (37.5-50.1) % Plt Count 157 198 (140-400) K/mcL BMP 10/16/18 08:44 Sodium 133 L Potassium 3.7 Chloride 103 Carbon Dioxide 22 L BUN 9 Creatinine 0.61 L Glucose 154 H Calcium 9.4 Liver Function 10/16/18 Range/Units 08:44 Total Bilirubin 7.1 H (0.3-1.0) mg/dL AST 1272 H (13-39) Units/L ALT > 500 H (7-52) Units/L Alkaline Phosphatase 162 H (34-104) Units/L Albumin 3.4 L (3.5-5.7) g/dL - ABG Interpretation ABG results: PT/INR, D-dimer PT 16.0 Seconds (9.4-12.1) H 10/17/18 06:42 - Pulse Oximetry Interpretation Digit-Finger Pulse Oximetry Readin (On room air) Consult Discharge Plan - Plan Referrals: Joe Bell MD [Partnered Physician] - <Melia Culver - Last Filed: 10/17/18 15:50> Hospitalist Progress Note - Encounter Date of Encounter: 10/17/18 - Exam Vitals: Temp Pulse Resp BP Pulse Ox 99.0 F 75 18 136/71 90 10/17/18 15:00 10/17/18 15:00 10/17/18 15:00 10/17/18 15:00 10/17/18 15:00 - Assessment and Plan (1) Hypertension Current Visit: Yes Status: Chronic (2) Polysubstance abuse Current Visit: Yes Status: Chronic (3) Tobacco abuse Current Visit: Yes Status: Chronic (4) Alcohol dependence with withdrawal Current Visit: Yes Status: Acute (5) Suicidal ideation Current Visit: No Status: Resolved (6) DM2 (diabetes mellitus, type 2) Current Visit: Yes Status: Chronic (7) Diastolic CHF, chronic Current Visit: No Status: Chronic (8) Hypomagnesemia Current Visit: No Status: Acute (9) Hepatitis A Current Visit: Yes Status: Acute (10) Hepatitis B Current Visit: Yes Status: Suspected (11) Hypokalemia Current Visit: Yes Status: Acute (12) Hepatic encephalopathy Current Visit: Yes Status: Deleted (13) Hepatitis C Current Visit: Yes Status: Chronic (14) BMI 40.0-44.9, adult Current Visit: Yes Status: Chronic - Time Spent with Patient Total time spent is greater than 50% in coordination of care (as documented) at patient's floor/unit and/or counseling patient: Internal Medicine: Result - Labs CBC & Chem 7: 10/17/18 06:42 10/17/18 06:42 Labs: Short CBC 10/17/18 Range/Units 06:42 WBC 8.8 (4.3-11.1) K/mcL Hgb 14.3 (12.9-16.9) g/dL Hct 42.8 (37.5-50.1) % Plt Count 198 (140-400) K/mcL BMP 10/17/18 06:42 Sodium 132 L Potassium 3.5 Chloride 102 Carbon Dioxide 22 L BUN 10 Creatinine 0.74 Glucose 211 H Calcium 8.9 Liver Function 10/17/18 Range/Units 06:42 Total Bilirubin 6.7 H (0.3-1.0) mg/dL AST 1099 H (13-39) Units/L ALT > 500 H (7-52) Units/L Alkaline Phosphatase 158 H (34-104) Units/L Albumin 3.4 L (3.5-5.7) g/dL - ABG Interpretation ABG results: PT/INR, D-dimer PT 16.0 Seconds (9.4-12.1) H 10/17/18 06:42 - Attending Attestation I examined this patient and my medical decision-making was reviewed with the Resident Physician Dr Ayala. I agree with the documented findings, disposition and treatment plan as described except to the extent set forth below. Mr Adams is admitted for metabolic encephalopathy, etoh withdrawal, hepatic encephalopathy with acute hepatitis infection Pt asleep but awakes to name. sitter at bedside. More awake, still feels nauseated with mild abd pain. dneies diarrhea, fevers, chills. + anxiety and "shakes". Denies si hi gen- asleep, awakes too name, somnolent, appears stated age, obese eyes- pupils equal round , + faint scleral icterus, no conjunctival pallor cv- reg rate and rhythm, normal s1,s2, no murmurs appreciated, no le edema lungs- ctabl, no wheezing, rhonchi or crackles, normal resp effort on ra abd- soft, non tender, non distended, + bs skin- no rash, + faint jaundice, no pallor neuro- AAOxperson, hospital setting, situation, states year is 2017 and month is September, knows name and city of [facility],[place] grossly intact, no focal deficits,no hand tremor Metabolic encephalopathy, very slowly improving multifactorial- hepatic nature 2/2 acute hepatitis infection and elevated ammonia level, etoh withdrawal with ativan Hepatic Encephalopathy Acute Hepatitis A and B infections Hx Hep C infection No identification of cirrhosis on imaging -stable lfts, increase lactulose -if worsened liver function occurs this admission low threshold transfer to tertiary center with hepatology available ETOH abuse ETOH withdrawal with hx DTs -ciwa, thiamine/folate/mvi, monitor and replete lytes, tele DM- SSI and accu checks, prn hypoglycemics HTN- stable with current regimen, cont CCB + BB + ACEI, will uptitrate as needed, will require outpt fu on dc Morbid obesity with BMI 47.5 - diet education Reported SI in ED- he is no longer voicing SI/AVH, may cont sitter with encephalopathy, will cont to monitor, at this time no psychiatric eval given multiple medical conditions contributing to encephalopathy and pt without si/hi/avh currently, if situation changes will get suicide precautions and psych consult ordered immediately scds for vte ppx given thrombocytopenia chronically and elevated inr <Damon Ayala - Last Filed: 10/17/18 13:50> (2) Alcohol dependence with withdrawal Qualifiers: Complication of substance-induced condition: with delirium Qualified Code(s): F10.231 - Alcohol dependence with withdrawal delirium (3) Hepatitis A Qualifiers: Hepatic coma status: without hepatic coma Qualified Code(s): B15.9 - Hepatitis A without hepatic coma (4) Hepatitis B Qualifiers: Viral hepatitis chronicity: acute Hepatic coma status: without hepatic coma Hepatitis delta agent presence: without delta-agent Qualified Code(s): B16.9 - Acute hepatitis B without delta-agent and without hepatic coma (5) Hepatitis C Qualifiers: Viral hepatitis chronicity: unspecified Hepatic coma status: without hepatic coma Qualified Code(s): B19.20 - Unspecified viral hepatitis C without hepatic coma (6) Hypertension Qualifiers: Hypertension type: essential hypertension Qualified Code(s): I10 - Essential (primary) hypertension (9) DM2 (diabetes mellitus, type 2) Qualifiers: Diabetes mellitus surgery scheduler insulin use: without surgery scheduler use Diabetes mellitus complication status: without complication Qualified Code(s): E11.9 - Type 2 diabetes mellitus without complications <Melia Culver - Last Filed: 10/17/18 15:50> (1) Hypertension Qualifiers: Hypertension type: essential hypertension Qualified Code(s): I10 - Essential (primary) hypertension (4) Alcohol dependence with withdrawal Qualifiers: Complication of substance-induced condition: with delirium Qualified Code(s): F10.231 - Alcohol dependence with withdrawal delirium (6) DM2 (diabetes mellitus, type 2) Qualifiers: Diabetes mellitus surgery scheduler insulin use: without longterm use Diabetes mellitus complication status: without complication Qualified Code(s): E11.9 - Type 2 diabetes mellitus without complications (9) Hepatitis A Qualifiers: Hepatic coma status: without hepatic coma Qualified Code(s): B15.9 - Hepatitis A without hepatic coma (10) Hepatitis B Qualifiers: Viral hepatitis chronicity: acute Hepatic coma status: without hepatic coma Hepatitis delta agent presence: without delta-agent Qualified Code(s): B16.9 - Acute hepatitis B without delta-agent and without hepatic coma (13) Hepatitis C Qualifiers: Viral hepatitis chronicity: unspecified Hepatic coma status: without hepatic coma Qualified Code(s): B19.20 - Unspecified viral hepatitis C without hepatic coma
[2018-10-17] MEDS: Thiamine (B-1) 100 MG TABLET PO SCH (09:16)
[2018-10-17] MEDS: Vitamin B Complex/Vit C/Vit E 1 EACH TABLET PO SCH (09:16)
[2018-10-17] MEDS: Folic Acid 1 MG TABLET PO SCH (09:16)
[2018-10-17] MEDS: amLODIPine 5 MG TABLET PO SCH (09:16)
[2018-10-17] MEDS: Gabapentin 100 MG CAPSULE PO SCH ×3 (09:16→21:53)
[2018-10-17] MEDS: Lactulose Oral Soln 20 GM/30 ML UDC PO SCH ×3 (09:20→21:53)
[2018-10-17] MEDS: Nystatin POWDER 30 GM BOTTLE TP SCH ×3 (09:20→22:33)
[2018-10-17] MEDS: Insulin LISPRO 300 UNITS/3 ML VIAL SQ SCH ×4 (09:20→21:52)
[2018-10-17 10:46] LABS: Alanine Aminotransferase > 500 Units/L (7-52); Albumin 3.4 g/dL (3.5-5.7); Albumin/Globulin Ratio 0.8 (1.1-2.2); Alkaline Phosphatase 158 Units/L (34-104); Aspartate Amino Transferase 1099 Units/L (13-39); BUN/Creatinine Ratio 14 (6-26); Bilirubin,Total 6.7 mg/dL (0.3-1.0); Blood Urea Nitrogen 10 mg/dL (6-20); Calcium 8.9 mg/dL (8.6-10.3); Carbon Dioxide 22 mEq/L (23-29); Chloride 102 mEq/L (98-107); Globulin 4.5 g/dL (2.4-3.5); Glucose 211 mg/dL (70-105); Magnesium 1.5 mg/dL (1.6-2.6); Osmolality,Calculated 279 (280-300); Potassium 3.5 mEq/L (3.5-5.1); Sodium 132 mEq/L (136-145); Total Protein 7.9 g/dL (6.4-8.9); eGFR For Non-African Americans > 60 (> 60)
[2018-10-17] MEDS: Mirtazapine 15 MG TABLET PO SCH (21:53)
[2018-10-18] MEDS ORDERED: *HR* LORazepam 2 MG/ML VIAL IVP ONE (00:50)
[2018-10-18 04:38] LABS: Hematocrit 40.6 % (37.5-50.1); Hemoglobin 13.8 g/dL (12.9-16.9); Mean Corpuscular Hemoglobin 28.8 pg (28.0-33.3); Mean Corpuscular Volume 84.8 fL (83.0-100.0); Mean Platelet Volume 11.6 fL (9.4-12.4); Platelet Count 168 K/mcL (140-400); Red Blood Count 4.79 M/mcL (4.19-5.50); Red Cell Distribution Width 19.1 % (11.5-14.5)
[2018-10-18 04:45] LABS: INR 1.4; Prothrombin Time 15.6 Seconds (9.4-12.1)
[2018-10-18 05:13] LABS: Alanine Aminotransferase > 500 Units/L (7-52); Albumin 3.4 g/dL (3.5-5.7); Albumin/Globulin Ratio 0.8 (1.1-2.2); Alkaline Phosphatase 151 Units/L (34-104); Aspartate Amino Transferase 868 Units/L (13-39); BUN/Creatinine Ratio 15 (6-26); Bilirubin,Total 5.6 mg/dL (0.3-1.0); Blood Urea Nitrogen 10 mg/dL (6-20); Carbon Dioxide 25 mEq/L (23-29); Chloride 102 mEq/L (98-107); Globulin 4.4 g/dL (2.4-3.5); Glucose 147 mg/dL (70-105); Magnesium 1.8 mg/dL (1.6-2.6); Osmolality,Calculated 278 (280-300); Potassium 3.8 mEq/L (3.5-5.1); Sodium 133 mEq/L (136-145); Total Protein 7.8 g/dL (6.4-8.9); eGFR For Non-African Americans > 60 (> 60)
[2018-10-18] MEDS: *HR* LORazepam 2 MG/ML VIAL IVP PRN ×5 (05:15→21:19)
[2018-10-18] MEDS: Pantoprazole 40 MG VIAL IVP SCH ×2 (05:15→17:48)
[2018-10-18] MEDS: Nicotine 2 MG GUM BC SCH ×9 (05:15→22:35)
[2018-10-18] MEDS: Gabapentin 100 MG CAPSULE PO SCH ×3 (08:36→21:19)
[2018-10-18] MEDS: Folic Acid 1 MG TABLET PO SCH (08:36)
[2018-10-18] MEDS: Vitamin B Complex/Vit C/Vit E 1 EACH TABLET PO SCH (08:36)
[2018-10-18] MEDS: amLODIPine 5 MG TABLET PO SCH (08:36)
[2018-10-18] MEDS: Thiamine (B-1) 100 MG TABLET PO SCH (08:36)
[2018-10-18] MEDS: Lactulose Oral Soln 20 GM/30 ML UDC PO SCH ×2 (08:38→21:18)
[2018-10-18] MEDS: Insulin LISPRO 300 UNITS/3 ML VIAL SQ SCH ×4 (08:40→21:54)
[2018-10-18] MEDS: Nystatin POWDER 30 GM BOTTLE TP SCH ×3 (08:43→22:35)
--- NOTE | 2018-10-18 09:29 | Internal Med Progress Note ---
<Melia Culver - Last Filed: 10/18/18 13:13> Hospitalist Progress Note - Encounter Date of Encounter: 10/18/18 - Exam Vitals: Temp Pulse Resp BP Pulse Ox 98.3 F 89 18 173/91 90 10/18/18 09:10 10/18/18 09:10 10/18/18 09:10 10/18/18 09:10 10/18/18 09:10 - Assessment and Plan (1) Hypertension Current Visit: Yes Status: Chronic (2) Polysubstance abuse Current Visit: Yes Status: Chronic (3) Tobacco abuse Current Visit: Yes Status: Chronic (4) Alcohol dependence with withdrawal Current Visit: Yes Status: Acute (5) Suicidal ideation Current Visit: Yes Status: Acute (6) DM2 (diabetes mellitus, type 2) Current Visit: Yes Status: Chronic (7) Diastolic CHF, chronic Current Visit: No Status: Chronic (8) Hypomagnesemia Current Visit: No Status: Acute (9) Hepatitis A Current Visit: Yes Status: Acute (10) Hepatitis B Current Visit: Yes Status: Suspected (11) Hypokalemia Current Visit: Yes Status: Resolved (12) Hepatic encephalopathy Current Visit: Yes Status: Deleted (13) Hepatitis C Current Visit: Yes Status: Chronic (14) BMI 40.0-44.9, adult Current Visit: Yes Status: Chronic - Time Spent with Patient Total time spent is greater than 50% in coordination of care (as documented) at patient's floor/unit and/or counseling patient: Internal Medicine: Result - Labs CBC & Chem 7: 10/18/18 04:16 10/18/18 04:16 Labs: Short CBC 10/18/18 Range/Units 04:16 WBC 9.0 (4.3-11.1) K/mcL Hgb 13.8 (12.9-16.9) g/dL Hct 40.6 (37.5-50.1) % Plt Count 168 (140-400) K/mcL BMP 10/18/18 04:16 Sodium 133 L Potassium 3.8 Chloride 102 Carbon Dioxide 25 BUN 10 Creatinine 0.67 L Glucose 147 H Calcium 9.0 Liver Function 10/18/18 Range/Units 04:16 Total Bilirubin 5.6 H (0.3-1.0) mg/dL AST 868 H (13-39) Units/L ALT > 500 H (7-52) Units/L Alkaline Phosphatase 151 H (34-104) Units/L Albumin 3.4 L (3.5-5.7) g/dL - ABG Interpretation ABG results: PT/INR, D-dimer PT 15.6 Seconds (9.4-12.1) H 10/18/18 04:16 Consult Discharge Plan - Plan Referrals: Joe Bell MD [Partnered Physician] - - Attending Attestation I examined this patient and my medical decision-making was reviewed with the Resident Physician Dr Ayala. I agree with the documented findings, disposition and treatment plan as described except to the extent set forth below. Mr Adams is admitted for metabolic encephalopathy, etoh withdrawal, hepatic encephalopathy with acute hepatitis infection Pt asleep but awakes to name. sitter at bedside. he just received ativn per ciwa Sleeping comofrtably and calm. Awakes to name, difficulty maintaining attention and falls back asleep but when awake answering questions appropriately. No abd pain, + rectal pain with increased bms with lactulose. States his rectum is burning from so many bms. No nausea or emesis. ate breakfast. He can't explain why he had stool all over his room overnight. He does admit to hearing voices. He cannot tell what they are saying. States his just "noise" in the background. Denies voices stating to harm himself or others. Denies seeing things he believes are not there. Denies wanting to harm himself or others. gen- asleep, awakes too name, somnolent, appears stated age, obese eyes- pupils equal round , + faint scleral icterus cv- reg rate and rhythm, normal s1,s2, no murmurs appreciated, no le edema lungs- ctabl, no wheezing, rhonchi or crackles, normal resp effort on ra abd- soft, non tender, non distended, + bs skin- + faint jaundice, no pallor neuro- AAOxperson, hospital setting, situation, CN grossly intact, no focal deficits,no hand tremor Metabolic encephalopathy, very slowly improving multifactorial- hepatic nature 2/2 acute hepatitis infection and elevated ammonia level, etoh withdrawal with ativan Hepatic Encephalopathy Acute Hepatitis A and B infections Hx Hep C infection No identification of cirrhosis on imaging -stable lfts, increasing lactulose as needed with monitoring of bm freq -if worsened liver function occurs this admission low threshold transfer to tertiary center with hepatology available bt thus far continually improving ETOH abuse ETOH withdrawal with hx DTs -ciwa, thiamine/folate/mvi, monitor and replete lytes, tele DM- SSI and accu checks, prn hypoglycemics HTN- cont CCB + BB + ACEI, will uptitrate as needed, will require outpt fu on dc Morbid obesity with BMI 47.5 - diet education Reported SI in ED- he is no longer voicing SI, may cont sitter with encephalopathy, will cont to monitor, at this time no psychiatric eval given multiple medical conditions contributing to encephalopathy, given that he is noting AH and hepatic nature of encepahlaopthy is improvng, will cont ot monitor -he likely will need psych eval once medical condition continues to improve -No SI and if this changes will get suicide precautions and psych consult ordered immediately scds for vte ppx given thrombocytopenia chronically and elevated inr <Damon Ayala - Last Filed: 10/18/18 17:10> Hospitalist Progress Note - Encounter Date of Encounter: 10/18/18 Time of Encounter: 09:27 - Subjective Interval History: Patient seen and examined resting comfortably in bed. Patient reports chronic low back pain. Lidocaine patch and Ultram were ordered prn. Avoid Tylenol due to hepatitis. Patient continues to require Ativan per [facility] protocol. Patient smeared feces over the wall the bathroom overnight. Ammonia level is decreased today. Continue lactulose. Patient was started on PPI per GI recommendations. Will need psychiatry evaluation. Sitter at bedside. - Exam Vitals: Temp Pulse Resp BP Pulse Ox 98.3 F 89 18 173/91 90 10/18/18 09:10 10/18/18 09:10 10/18/18 09:10 10/18/18 09:10 10/18/18 09:10 Exam: Gen.: NAD, morbidly obese, well-nourished, well-developed. - Head Head exam: Present: atraumatic, normocephalic - Eye Eye exam: Present: conjuntiva pink, scleral icterus - ENT ENT exam: Present: mucous membranes moist. - Neck Neck exam general surgery: Present: normal inspection. Absent: thyromegaly - Respiratory Respiratory exam: Present: decreased breath sounds. No rales, rhonchi - Cardiovascular Cardiovascular exam: Present: RRR. No murmurs appreciated. - GI/Abdominal GI/Abdominal exam: Present: distended, soft, tenderness. Mild tenderness noted in RUQ area and LLQ. No peritoneal signs, rebound tenderness or guarding. - Extremities Exam Extremities exam: bilateral purpura. absent joint swelling, pedal edema, tenderness. - Neurological Exam Neurological exam: Present: alert and moves all extremities - Psychiatric Psychiatric exam: Present: agitated, non-cooperative - Skin Skin exam: Present: dry, warm, mild jaundice. Absent: rash - Assessment and Plan (1) Hepatic encephalopathy Current Visit: Yes Status: Deleted Assessment and Plan: Pt has elevated ammonia in setting of acute hepatitis Liver enzymes trending down. Ammonia is trending down today. Lactulose dosage increased. Titrate dose to 3 bowel movements per day. (2) Alcohol dependence with withdrawal Current Visit: Yes Status: Acute Assessment and Plan: Pt has long standing hx of ETOH abuse. He has had multiple admissions for complaints of withdrawal and has history of requesting Ativan frequently. Continue Ativan per [facility] protocol Continue Folate and thiamine In the past he has been seen by psychiatry and was started on Neurontin during his last visit. He says he no longer takes it (ran out and couldn't get more). Continue neurontin (3) Hepatitis A Current Visit: Yes Status: Acute Assessment and Plan: Pt has markedly elevated liver function. Hepatitis A IGM positive. Anticipate increased total bili in setting acute hepatitis. Transaminases are down trending/stable. No steroids needed, continue PPI and supportive care. Infection prevention nursing staff has reported his hepatitis status (4) Hepatitis B Current Visit: Yes Status: Suspected Assessment and Plan: Pt presented with markedly elevated liver function. Admits to IV drug use since last admit. Hep B surface antigen and core IGM positive. Surface antibody is low. Supportive care for now. Outpatient follow-up for potential hepatitis B booster vaccine. (5) Hepatitis C Current Visit: Yes Status: Chronic Assessment and Plan: Patient has known history of Hep C due to IV drug use. (6) Hypertension Current Visit: Yes Status: Chronic Assessment and Plan: Pt has hx of HTN. Has not been taking meds. Blood pressure currently elevated due to ETOH withdrawal. Atenolol PO dosage increased. Continue PRN Hydralazine and Clonidine PRN with ETOH withdrawal. (7) Polysubstance abuse Current Visit: Yes Status: Chronic Assessment and Plan: Pt has chronic history of polysubstance abuse. (8) Suicidal ideation Current Visit: Yes Status: Acute Assessment and Plan: Pt reported in ED that he might harm himself on admission. Patient has been smearing feces over the wall in the bathroom. Sitter at bedside. Yesterday patient upon questioning refuses that he has suicidal ideation. He does not answer when asked if he has homicidal ideation. States that he does not have a plan Has a sitter currently. Continue sitter today. Currently does not have pink slip. Will need psychiatry evaluation once medically stable. (9) DM2 (diabetes mellitus, type 2) Current Visit: Yes Status: Chronic Assessment and Plan: Pt currently not on any meds. HgbA1C 6.2% Will check sugars and cover with low dose sliding scale. Diabetic diet ordered. (10) Diastolic CHF, chronic Current Visit: No Status: Chronic Assessment and Plan: Chronic issue with no acute exacerbation. (11) Hypokalemia Current Visit: Yes Status: Resolved Assessment and Plan: Potassium 2.9 on admission and potassium was given. Recheck K in AM. (12) Hypomagnesemia Current Visit: No Status: Acute Assessment and Plan: Secondary to alcohol dependence. Supplemented magnesium, continue to monitor. (13) Chronic low back pain Current Visit: Yes Status: Chronic Assessment and Plan: Patient reports taking Vicodin at home for chronic low back pain. Lidocaine patch and Ultram were ordered prn. Avoid Tylenol due to hepatitis. (14) Tobacco abuse Current Visit: Yes Status: Chronic Assessment and Plan: Chronic issue. Nicotine gum. (15) BMI 40.0-44.9, adult Current Visit: Yes Status: Chronic Assessment and Plan: BMI 48. Lifestyle modification DVT Prophylaxis: SCDs for vte ppx given thrombocytopenia chronically and elevated inr - Time Spent with Patient Total time spent is greater than 50% in coordination of care (as documented) at patient's floor/unit and/or counseling patient: Internal Medicine: Result - Labs CBC & Chem 7: 10/18/18 04:16 10/18/18 04:16 Labs: Short CBC 10/18/18 Range/Units 04:16 WBC 9.0 (4.3-11.1) K/mcL Hgb 13.8 (12.9-16.9) g/dL Hct 40.6 (37.5-50.1) % Plt Count 168 (140-400) K/mcL BMP 10/17/18 10/18/18 06:42 04:16 Sodium 132 L 133 L Potassium 3.5 3.8 Chloride 102 102 Carbon Dioxide 22 L 25 BUN 10 10 Creatinine 0.74 0.67 L Glucose 211 H 147 H Calcium 8.9 9.0 Liver Function 10/17/18 10/18/18 Range/Units 06:42 04:16 Total Bilirubin 6.7 H 5.6 H (0.3-1.0) mg/dL AST 1099 H 868 H (13-39) Units/L ALT > 500 H > 500 H (7-52) Units/L Alkaline Phosphatase 158 H 151 H (34-104) Units/L Albumin 3.4 L 3.4 L (3.5-5.7) g/dL - ABG Interpretation ABG results: PT/INR, D-dimer PT 15.6 Seconds (9.4-12.1) H 10/18/18 04:16 - Pulse Oximetry Interpretation Digit-Finger Pulse Oximetry Readin (On room air.) <Melia Culver - Last Filed: 10/18/18 13:13> (1) Hypertension Qualifiers: Hypertension type: essential hypertension Qualified Code(s): I10 - Essential (primary) hypertension (4) Alcohol dependence with withdrawal Qualifiers: Complication of substance-induced condition: with delirium Qualified Code(s): F10.231 - Alcohol dependence with withdrawal delirium (6) DM2 (diabetes mellitus, type 2) Qualifiers: Diabetes mellitus exterminator insulin use: without exterminator use Diabetes preeti litus complication status: without complication Qualified Code(s): E11.9 - Type 2 diabetes mellitus without complications (9) Hepatitis A Qualifiers: Hepatic coma status: without hepatic coma Qualified Code(s): B15.9 - Hepatitis A without hepatic coma (10) Hepatitis B Qualifiers: Viral hepatitis chronicity: acute Hepatic coma status: without hepatic coma Hepatitis delta agent presence: without delta-agent Qualified Code(s): B16.9 - Acute hepatitis B without delta-agent and without hepatic coma (13) Hepatitis C Qualifiers: Viral hepatitis chronicity: unspecified Hepatic coma status: without hepatic coma Qualified Code(s): B19.20 - Unspecified viral hepatitis C without hepatic coma <Damon Ayala - Last Filed: 10/18/18 17:10> (2) Alcohol dependence with withdrawal Qualifiers: Complication of substance-induced condition: with delirium Qualified Code(s): F10.231 - Alcohol dependence with withdrawal delirium (3) Hepatitis A Qualifiers: Hepatic coma status: without hepatic coma Qualified Code(s): B15.9 - Hepatitis A without hepatic coma (4) Hepatitis B Qualifiers: Viral hepatitis chronicity: acute Hepatic coma status: without hepatic coma Hepatitis delta agent presence: without delta-agent Qualified Code(s): B16.9 - Acute hepatitis B without delta-agent and without hepatic coma (5) Hepatitis C Qualifiers: Viral hepatitis chronicity: unspecified Hepatic coma status: without hepatic coma Qualified Code(s): B19.20 - Unspecified viral hepatitis C without hepatic coma (6) Hypertension Qualifiers: Hypertension type: essential hypertension Qualified Code(s): I10 - Essential (primary) hypertension (9) DM2 (diabetes mellitus, type 2) Qualifiers: Diabetes mellitus fpc insulin use: without exterminator use Diabetes mellitus complication status: without complication Qualified Code(s): E11.9 - Type 2 diabetes mellitus without complications (13) Chronic low back pain Qualifiers: Back pain laterality: bilateral Sciatica presence: without sciatica Qualified Code(s): M54.5 - Low back pain; G89.29 - Other chronic pain
[2018-10-18] MEDS ORDERED: Ondansetron 4 MG/2 ML VIAL IVP PRN (10:00)
[2018-10-18 10:08] LABS: Hepatitis Be Antibody NEGATIVE (Negative); Hepatitis Be Antigen POSITIVE (Negative)
[2018-10-18] MEDS ORDERED: *HR* HYDROcodone/Acet 5/325 mg TABLET PO PRN (17:17)
[2018-10-18] MEDS: Mirtazapine 15 MG TABLET PO SCH (21:18)
[2018-10-18] MEDS ORDERED: *HR* LORazepam 1 MG TABLET PO ONE (22:08)
--- NOTE | 2018-10-18 22:19 | Event Note ---
Date of Encounter: 10/18/18 Time of Encounter: 21:40 Called to see patient emergently for aggressive behavior, agitation, suicidal thoughts, active alcohol withdrawal, and attempt to leave AMA. Upon my assessment of patient, he is still withdrawing from alcohol. He just received an Ativan dose about 15 minutes prior to my assessment. He is still aggressive to staff, especially toward sitter. He expressed to me "I just want to end it all". I asked him if he is suicidal, and he again reiterated "I just want to end it all." He is obviously agitated, withdrawing, and expressing thoughts of suicide. I therefore pink-slipped him, ordered another one time dose of PO Ativan, and called psychiatry requesting a consult in the morning. Patient poses a danger to self, staff, and others. Therefore, I can not allow him to leave AMA and pink-slipped until he can be assessed by psychiatry.
[2018-10-19] MEDS: cloNIDine HCl 0.1 MG TABLET PO PRN ×2 (01:08→23:08)
[2018-10-19] MEDS: *HR* LORazepam 2 MG/ML VIAL IVP PRN ×4 (04:20→20:58)
[2018-10-19] MEDS: Pantoprazole 40 MG VIAL IVP SCH (06:35)
[2018-10-19] MEDS: Nicotine 2 MG GUM BC SCH ×9 (06:36→22:59)
[2018-10-19 07:26] LABS: Hemoglobin 13.8 g/dL (12.9-16.9); Mean Corpuscular HGB Conc 33.7 g/dL (31.6-35.5); Mean Corpuscular Hemoglobin 28.9 pg (28.0-33.3); Mean Corpuscular Volume 85.8 fL (83.0-100.0); Mean Platelet Volume 10.7 fL (9.4-12.4); Platelet Count 198 K/mcL (140-400); Red Blood Count 4.78 M/mcL (4.19-5.50); Red Cell Distribution Width 18.9 % (11.5-14.5)
[2018-10-19 07:35] LABS: INR 1.3; Prothrombin Time 14.2 Seconds (9.4-12.1)
[2018-10-19] MEDS: Insulin LISPRO 300 UNITS/3 ML VIAL SQ SCH ×4 (07:53→21:08)
[2018-10-19 08:00] LABS: Alanine Aminotransferase > 500 Units/L (7-52); Albumin 3.5 g/dL (3.5-5.7); Albumin/Globulin Ratio 0.8 (1.1-2.2); Alkaline Phosphatase 151 Units/L (34-104); Aspartate Amino Transferase 812 Units/L (13-39); BUN/Creatinine Ratio 13 (6-26); Bilirubin,Total 5.7 mg/dL (0.3-1.0); Blood Urea Nitrogen 10 mg/dL (6-20); Calcium 9.2 mg/dL (8.6-10.3); Carbon Dioxide 28 mEq/L (23-29); Chloride 102 mEq/L (98-107); Globulin 4.6 g/dL (2.4-3.5); Glucose 128 mg/dL (70-105); Magnesium 1.6 mg/dL (1.6-2.6); Osmolality,Calculated 283 (280-300); Potassium 3.6 mEq/L (3.5-5.1); Sodium 136 mEq/L (136-145); Total Protein 8.1 g/dL (6.4-8.9); eGFR For Non-African Americans > 60 (> 60)
[2018-10-19] MEDS: amLODIPine 5 MG TABLET PO SCH (09:02)
[2018-10-19] MEDS: Gabapentin 100 MG CAPSULE PO SCH ×3 (09:02→20:58)
[2018-10-19] MEDS: Folic Acid 1 MG TABLET PO SCH (09:02)
[2018-10-19] MEDS: Vitamin B Complex/Vit C/Vit E 1 EACH TABLET PO SCH (09:02)
[2018-10-19] MEDS: Thiamine (B-1) 100 MG TABLET PO SCH (09:02)
[2018-10-19] MEDS: Lactulose Oral Soln 20 GM/30 ML UDC PO SCH ×2 (09:06→20:59)
[2018-10-19] MEDS: Nystatin POWDER 30 GM BOTTLE TP SCH ×3 (09:31→21:00)
--- NOTE | 2018-10-19 10:17 | Internal Med Progress Note ---
<Alvin Mcgovern - Last Filed: 10/19/18 16:07> Hospitalist Progress Note - Encounter Date of Encounter: 10/19/18 Time of Encounter: 10:00 - Subjective Interval History: Patient is a 48 year WM on hospital day 6 here for what he was calling "anatoliy" on ED admission. He has PMH of alc abuse, HTN, obesity, htn, hep c, IV drug use, hx of DT's and DM II. He appears well nourished, well-developed and in mild distress today. Event noted yesterday night where Dr. Cho was called to see patient emergently for aggressive behavior, agitation, suicidal thoughts, active alcohol withdrawal, and attempted to leave AMA. Consult for martin ordered. Patient is uncooperative with questioning. Unattainable ROS. - Exam Vitals: Temp Pulse Resp BP Pulse Ox 97.9 F 92 14 136/85 94 10/19/18 07:02 10/19/18 07:02 10/19/18 07:02 10/19/18 07:02 10/19/18 07:02 Exam: - Head Head exam: Present: atraumatic, normocephalic - Eye Eye exam: Present: conjuntiva pink, scleral icterus - ENT ENT exam: Present: mucous membranes moist. patent nares. - Respiratory Respiratory exam: Present: decreased breath sounds. No rales, rhonchi - Cardiovascular Cardiovascular exam: Present: RRR. No murmurs appreciated. - GI/Abdominal GI/Abdominal exam: Present: distended, soft, tenderness. No peritoneal signs, rebound tenderness or guarding. - Extremities Exam Extremities exam: bilateral purpura. absent joint swelling, pedal edema, tenderness. - Neurological Exam Neurological exam: Present: alert and moves all extremities - Psychiatric Psychiatric exam: Present: agitated, non-cooperative - Skin Skin exam: Present: dry, warm, mild jaundice. Absent: rash - Assessment and Plan (1) Metabolic encephalopathy Current Visit: Yes Status: Acute Assessment and Plan: Pt has elevated ammonia in setting of acute hepatitis Liver enzymes trending down. Ammonia is stable at 75 today. Lactulose dosage decreased today due to increased bowel movements from yesterday. Continue to monitor bowel movements for dosage considerations. GI following. Appreciate recommendations. (2) Alcohol dependence with withdrawal Current Visit: Yes Status: Acute Assessment and Plan: Pt has long standing hx of ETOH abuse. He has had multiple admissions for complaints of withdrawal and has history of requesting Ativan frequently. Continue Ativan per [facility] protocol Continue Folate and thiamine In the past he has been seen by psychiatry and was started on Neurontin during his last visit. He says he no longer takes it (ran out and couldn't get more). Continue neurontin (3) Hepatitis A Current Visit: Yes Status: Acute Assessment and Plan: Pt has markedly elevated liver function. Hepatitis A IGM positive. Anticipate increased total bili in setting acute hepatitis. Transaminases are down trending/stable. No steroids needed, continue PPI and supportive care. Infection prevention nursing staff has reported his hepatitis status (4) Hypokalemia Current Visit: Yes Status: Resolved Assessment and Plan: Potassium 2.9 on admission and potassium was given. -Potassium today is 3.6. Continue to monitor. (5) Hepatitis C Current Visit: Yes Status: Chronic Assessment and Plan: Patient has known history of Hep C due to IV drug use. (6) Hepatitis B Current Visit: Yes Status: Suspected Assessment and Plan: Pt presented with markedly elevated liver function. Admits to IV drug use since last admit. Hep B surface antigen and core IGM positive. Surface antibody is low. Supportive care for now. Outpatient follow-up for potential hepatitis B booster vaccine. (7) Suicidal ideation Current Visit: Yes Status: Acute Assessment and Plan: Pt reported in ED that he might harm himself on admission. Patient has been smearing feces over the wall in the bathroom. Sitter at bedside. Has a sitter currently. Continue sitter today. Currently has a pink slip. Suicidal precuations ordered. Psych consult ordered. Psych saw patient today and recommended Haloperidol 5mg PO or IM Q4H PRN and Diphenhydramine 50mg PO or IM Q4H PRN if aggression becomes violent and is not controlled with verbal calming and redirecting techniques. Also Recommended Psychiatric and counseling follow up upon discharge. (8) DM2 (diabetes mellitus, type 2) Current Visit: Yes Status: Chronic Assessment and Plan: Pt currently not on any meds. HgbA1C 6.2% Will check sugars and cover with low dose sliding scale. Diabetic diet ordered. (9) Diastolic CHF, chronic Current Visit: No Status: Chronic Assessment and Plan: Chronic issue with no signs of acute exacerbation. (10) Hypertension Current Visit: Yes Status: Chronic Assessment and Plan: Pt has hx of HTN. Has not been taking meds. Blood pressure currently elevated due to ETOH withdrawal. Atenolol PO dosage increased. Continue PRN Hydralazine and Clonidine PRN with ETOH withdrawal. (11) Morbid obesity Current Visit: Yes Status: Chronic Assessment and Plan: BMI 48. Lifestyle modification (12) Polysubstance abuse Current Visit: Yes Status: Chronic Assessment and Plan: Patient has chronic issue of polysubstance abuse. (13) Tobacco abuse Current Visit: Yes Status: Chronic Assessment and Plan: cessation counseled. DVT Prophylaxis: SCDs for vte ppx given thrombocytopenia chronically and elevated inr - Time Spent with Patient Total time spent is greater than 50% in coordination of care (as documented) at patient's floor/unit and/or counseling patient: Internal Medicine: Result - Labs CBC & Chem 7: 10/19/18 07:13 10/19/18 07:13 Labs: Short CBC 10/19/18 Range/Units 07:13 WBC 8.0 (4.3-11.1) K/mcL Hgb 13.8 (12.9-16.9) g/dL Hct 41.0 (37.5-50.1) % Plt Count 198 (140-400) K/mcL BMP 10/19/18 07:13 Sodium 136 Potassium 3.6 Chloride 102 Carbon Dioxide 28 BUN 10 Creatinine 0.75 Glucose 128 H Calcium 9.2 Liver Function 10/19/18 Range/Units 07:13 Total Bilirubin 5.7 H (0.3-1.0) mg/dL AST 812 H (13-39) Units/L ALT > 500 H (7-52) Units/L Alkaline Phosphatase 151 H (34-104) Units/L Albumin 3.5 (3.5-5.7) g/dL - ABG Interpretation ABG results: PT/INR, D-dimer PT 14.2 Seconds (9.4-12.1) H 10/19/18 07:13 Consult Discharge Plan - Plan Referrals: Joe Bell MD [Partnered Physician] - <Melia Culver - Last Filed: 10/19/18 19:08> Hospitalist Progress Note - Encounter Date of Encounter: 10/19/18 - Exam Vitals: Temp Pulse Resp BP Pulse Ox 97.8 F 88 20 167/92 96 10/19/18 18:53 10/19/18 18:53 10/19/18 18:53 10/19/18 18:53 10/19/18 18:53 - Assessment and Plan (1) Hypertension Current Visit: Yes Status: Chronic (2) Polysubstance abuse Current Visit: Yes Status: Chronic (3) Tobacco abuse Current Visit: Yes Status: Chronic (4) Alcohol dependence with withdrawal Current Visit: Yes Status: Acute (5) Suicidal ideation Current Visit: Yes Status: Acute (6) DM2 (diabetes mellitus, type 2) Current Visit: Yes Status: Chronic (7) Diastolic CHF, chronic Current Visit: No Status: Chronic (8) Hypomagnesemia Current Visit: No Status: Acute (9) Hepatitis A Current Visit: Yes Status: Acute (10) Hepatitis B Current Visit: Yes Status: Suspected (11) Hypokalemia Current Visit: Yes Status: Resolved (12) Hepatic encephalopathy Current Visit: Yes Status: Deleted (13) Hepatitis C Current Visit: Yes Status: Chronic (14) BMI 40.0-44.9, adult Current Visit: Yes Status: Chronic - Time Spent with Patient Total time spent is greater than 50% in coordination of care (as documented) at patient's floor/unit and/or counseling patient: Internal Medicine: Result - Labs CBC & Chem 7: 10/19/18 07:13 10/19/18 07:13 Labs: Short CBC 10/19/18 Range/Units 07:13 WBC 8.0 (4.3-11.1) K/mcL Hgb 13.8 (12.9-16.9) g/dL Hct 41.0 (37.5-50.1) % Plt Count 198 (140-400) K/mcL BMP 10/19/18 07:13 Sodium 136 Potassium 3.6 Chloride 102 Carbon Dioxide 28 BUN 10 Creatinine 0.75 Glucose 128 H Calcium 9.2 Liver Function 10/19/18 Range/Units 07:13 Total Bilirubin 5.7 H (0.3-1.0) mg/dL AST 812 H (13-39) Units/L ALT > 500 H (7-52) Units/L Alkaline Phosphatase 151 H (34-104) Units/L Albumin 3.5 (3.5-5.7) g/dL - ABG Interpretation ABG results: PT/INR, D-dimer PT 14.2 Seconds (9.4-12.1) H 10/19/18 07:13 - Attending Attestation The history, physical exam, and medical decision making was performed by the medical student Shaniqua either while I was physically present and actively involved or I personally re-performed the exam and medical decision making. I have verified the accuracy of the medical student's documentation with regards to the history, physical exam findings, and medical decision making. Mr Adams is admitted for metabolic encephalopathy, etoh withdrawal, hepatic encephalopathy with acute hepatitis infection Pt awake with sitter present, now calm. denies anxiety, tremor, cp, plapitations. wanting dc. aware he is pink slipped and also still being treated for etoh withdrawal. agreeable to continued treatment gen- awake, alert, appears stated age, obese eyes- pupils equal round , + faint scleral icterus cv- reg rate and rhythm, normal s1,s2, no murmurs appreciated, no le edema lungs- ctabl, no wheezing, rhonchi or crackles, normal resp effort on ra abd- soft, non tender, non distended, + bs skin- + faint jaundice, no pallor neuro- AAOxperson, hospital setting, situation, CN grossly intact, no focal deficits,no hand tremor Metabolic encephalopathy,improving multifactorial- hepatic nature 2/2 acute hepatitis infection and elevated ammonia level, etoh withdrawal with ativan Hepatic Encephalopathy, likely resolved given labs /ammonia Acute Hepatitis A and B infections Hx Hep C infection No identification of cirrhosis on imaging -stable lfts,decrease lactulose as bms above goal ETOH abuse in active w/d ETOH withdrawal with hx DTs -ciwa, thiamine/folate/mvi, monitor and replete lytes, tele DM- SSI and accu checks, prn hypoglycemics HTN- cont CCB + BB + ACEI, will uptitrate as needed, will require outpt fu on dc Morbid obesity with BMI 47.5 - diet education reported SI last night- pink slipped, psych has seen, no inpt psych required, resident reached out and confirmed sitter/precautions may be dc'd and no longer pink slipped. scds for vte ppx given thrombocytopenia chronically and elevated inr <Alvin Mcgovern P - Last Filed: 10/19/18 16:07> (2) Alcohol dependence with withdrawal Qualifiers: Complication of substance-induced condition: with delirium Qualified Code(s): F10.231 - Alcohol dependence with withdrawal delirium (3) Hepatitis A Qualifiers: Hepatic coma status: without hepatic coma Qualified Code(s): B15.9 - Hepatitis A without hepatic coma (5) Hepatitis C Qualifiers: Viral hepatitis chronicity: unspecified Hepatic coma status: without hepatic coma Qualified Code(s): B19.20 - Unspecified viral hepatitis C without hepatic coma (6) Hepatitis B Qualifiers: Viral hepatitis chronicity: acute Hepatic coma status: without hepatic coma Hepatitis delta agent presence: without delta-agent Qualified Code(s): B16.9 - Acute hepatitis B without delta-agent and without hepatic coma (8) DM2 (diabetes mellitus, type 2) Qualifiers: Diabetes mellitus remote computer terminal operator insulin use: without assisted use Diabetes mellitus complication status: without complication Qualified Code(s): E11.9 - Type 2 diabetes mellitus without complications (10) Hypertension Qualifiers: Hypertension type: essential hypertension Qualified Code(s): I10 - Essential (primary) hypertension <Melia Culver M - Last Filed: 10/19/18 19:08> (1) Hypertension Qualifiers: Hypertension type: essential hypertension Qualified Code(s): I10 - Essential (primary) hypertension (4) Alcohol dependence with withdrawal Qualifiers: Complication of substance-induced condition: with delirium Qualified Code(s): F10.231 - Alcohol dependence with withdrawal delirium (6) DM2 (diabetes mellitus, type 2) Qualifiers: Diabetes mellitus assisted insulin use: without remote computer terminal operator use Diabetes mellitus complication status: without complication Qualified Code(s): E11.9 - Type 2 diabetes mellitus without complications (9) Hepatitis A Qualifiers: Hepatic coma status: without hepatic coma Qualified Code(s): B15.9 - Hepatitis A without hepatic coma (10) Hepatitis B Qualifiers: Viral hepatitis chronicity: acute Hepatic coma status: without hepatic coma Hepatitis delta agent presence: without delta-agent Qualified Code(s): B16.9 - Acute hepatitis B without delta-agent and without hepatic coma (13) Hepatitis C Qualifiers: Viral hepatitis chronicity: unspecified Hepatic coma status: without hepatic coma Qualified Code(s): B19.20 - Unspecified viral hepatitis C without hepatic coma
[2018-10-19] MEDS: *HR* OxyCODONE Immed Rel 5 MG TABLET PO PRN ×3 (10:53→23:10)
--- NOTE | 2018-10-19 12:49 | Consult Note ---
Date of Encounter: 10/19/18 Time of Encounter: 10:00 Assessment & Recommendation (1) Suicidal ideation Current visit: Yes Status: Acute Assessment & Recommendation: -As patient currently denies SI, stating that he always says these thoughts but never means them, has never had a suicide attempt, and has had similar hospital stays such as this stay, it is thought that the patient is at low risk for suicide at this time. As such, an inpatient stay on the psychiatric unit is not indicated at this time -Recommend Haloperidol 5mg PO or IM Q4H PRN and Diphenhydramine 50mg PO or IM Q4H PRN if aggression becomes violent and is not controlled with verbal calming and redirecting techniques. -Recommend Psychiatric and counseling follow up upon discharge (2) Aggression Current visit: Yes Status: Acute Assessment & Recommendation: -please see primary plan above History of Present Illness Patient: known to practice within the last 3 years Requesting Physician: Melia Culver Reason for consult: SI with alcohol withdrawal History of present illness: Mr. Adams is a 48 year old male with an extensive psychiatric and substance abuse history admitted to [facility] on 10/14/18 for alcohol withdrawal, being consulted for SI. Patient has been drinking 12-24 beers for the last 10-12 years. Be came to the ED for withdrawal, explaining that he has had DTs and hallucinations with withdrawals before. He was placed on CIWA and has been consistently positive throughout his stay, with his last score being 14 at 0900 this morning. Last night, he became agitated with SI, explaining that he was going to leave [facility]. Due to these verbalizations, he was pink slipped. Nursing staff today says he has been aggressive, punching the bed rails and windows. Patient has been to this hospital several times with similar complaints. When seeing the patient today, he was drowsy but arousable with verbalizations. His sitter reports that he recently received Ativan for a positive CIWA. He reports that he is feeling symptoms of withdrawal at this time (he was asleep before I came in). He reports symptoms of tremor (only present when I ask him to lift his hands), sensitivity to hot and cold, diarrhea, and 8/10 headache. He denies tactile, auditory, and visual hallucinations. He denies current SI. He states, "I never want to do that. I just say it all the time" but doesn't mean it. He denies a history of a suicide attempt. He denies access to firearms, stating he only has a pocket knife at home. He reports that he wants to leave, explaining that he has plans to "relax" once he gets there. He reports a "little bit" of depression and anxiety due to the situation of being here, as he wants to leave. He reports that he has not been sleeping well. He denies side effects to medications while he has been here. He denies HI. CC: Melia Culver Past Med Surg Social Fam HX - Past Medical History Medical history: diabetes, hypertension - Past Psychiatric History Psychiatric history: Reports: anxiety, PTSD, other (polysubstance use) Past psychiatric history details: denies history of suicide attempt Family psychiatric history: Unknown Family History of Suicide: Unknown - Past Surgical History Surgical History: no surgical history - Social History Smoking Status: Current every day smoker Smokeless Tobacco Status: No Alcohol use: heavy, recent Drug use: opiates, marijuana, methamphetamine, IV Drug Use, prescription drug abuse - Family History Father Adopted: No Family Member Ethnicity: Non- Living Status: Hx Family Cardiac Disorders: Yes (OK in 50s) Mother Family Member Ethnicity: Non- Living Status: Hx Family Cardiac Disorders: Yes (OK in 50s) Hx Family Cancer: Yes (Cancer) Hx Family Endocrine Disorder: Yes (Diabetes) Medications & Allergies Atenolol [Tenormin] 25 mg PO DAILY 05/18/18 [History] Gabapentin [Neurontin] 100 mg PO TID 05/18/18 [History] Lisinopril [Zestril] 5 mg PO DAILY 05/18/18 [History] Mirtazapine 7.5 mg PO HS 05/18/18 [History] amLODIPine [Norvasc] 10 mg PO DAILY 05/18/18 [History] hydrOXYzine pamoate [Hydroxyzine Pamoate] 25 mg PO TID PRN 05/18/18 [History] Nicotine Patch [Nicoderm] 14 mg TD DAILY patch.td24 06/01/18 [Rx] Buprenorphine HCl/Naloxone HCl [Buprenorphin-Naloxon 8-2 mg Sl] 10/14/18 [History] Allergy/AdvReac Type Severity Reaction Status Date / Time Amoxicillin Allergy Hives Verified 10/14/18 03:02 Penicillins Allergy Hives Verified 10/14/18 03:02 quetiapine [From Seroquel] Allergy Hives Verified 10/14/18 03:02 chlordiazepoxide AdvReac Gastrointestinal Verified 10/14/18 03:02 [From Librium] Upset Review of Systems Psychiatric: Reports: depression, anxiety, abnormal sleep pattern, irritability. Denies: suicidal ideation, change in appetite, homicidal ideation, auditory hallucinations, visual hallucinations, confusion Psychiatry Exam - Constitutional Vitals: Temp Pulse Resp BP Pulse Ox 98.3 F 72 16 132/66 93 10/19/18 12:10 10/19/18 12:10 10/19/18 12:10 10/19/18 12:10 10/19/18 12:10 General appearance: age & developmentally appropriate, well-nourished - Musculoskeletal Station: relaxed Strength & Tone: normal for patient - Psychiatric Patient Orientation: Yes Person, Yes Time (knew year but thought it was September 23), Yes Place Level of alertness: Alert (but drowsy), Follows commands Behavior: cooperative, agitated Psychomotor activity: Normal Eye Contact: Fleeting Contact Mood Description: Irritable Patient description of mood: "alright" Affect description: congruent with mood, full range Speech Volume: Soft/Quiet Speech pattern: normal rate, normal rhythm, normal tone, fluent, spontaneous, appropriate, mumbled (mildly at times) Language & Vocabulary: consistent with education Thought Process: Logical, Linear, Goal Oriented Thought Content: No Suicidal ideation, No Homicidal ideation, No Overt delusions Perceptual Disturbances: No Reacting to internal stimuli, No Auditory hallucinations, No Visual hallucinations, No Tactile hallucinations Attention Span Ability: Capable of Focused Attention Memory Description: Grossly Intact Patient Reliability: Questionable Historian Fund of knowledge: Yes abstraction ability, Yes aware of current events Intelligence Estimate: Average Judgment: Limited Insight: Partial Results - Drug Levels and Toxicology Drug Levels and Toxicology: none new this AM - Labs Labs: Laboratory Last Values WBC 8.0 K/mcL (4.3-11.1) 10/19/18 07:13 RBC 4.78 M/mcL (4.19-5.50) 10/19/18 07:13 Hgb 13.8 g/dL (12.9-16.9) 10/19/18 07:13 Hct 41.0 % (37.5-50.1) 10/19/18 07:13 MCV 85.8 fL (83.0-100.0) 10/19/18 07:13 MCH 28.9 pg (28.0-33.3) 10/19/18 07:13 MCHC 33.7 g/dL (31.6-35.5) 10/19/18 07:13 RDW 18.9 % (11.5-14.5) H 10/19/18 07:13 Plt Count 198 K/mcL (140-400) 10/19/18 07:13 MPV 10.7 fL (9.4-12.4) 10/19/18 07:13 Immature Gran % 0.4 % (0-4) 10/14/18 05:03 Seg Neutrophils % 56.1 % 10/14/18 05:03 Lymphocytes % 31.0 % 10/14/18 05:03 Monocytes % 10.3 % 10/14/18 05:03 Eosinophils % 1.5 % 10/14/18 05:03 Basophils % 0.7 % 10/14/18 05:03 Neutrophils # 4.5 K/mcL (1.6-8.9) 10/14/18 05:03 Lymphocytes # 2.5 K/mcL (0.6-4.6) 10/14/18 05:03 Monocytes # 0.8 K/mcL (0.0-1.3) 10/14/18 05:03 Eosinophils # 0.1 K/mcL (0.0-0.6) 10/14/18 05:03 Basophils # 0.1 K/mcL (0.0-0.2) 10/14/18 05:03 Reactive Lymphocytes Present (Not Present) A 10/14/18 05:03 Platelet Estimate Normal (Normal) 10/14/18 05:03 Anisocytosis 1+ (Not Present) A 10/14/18 05:03 PT 14.2 Seconds (9.4-12.1) H 10/19/18 07:13 INR 1.3 10/19/18 07:13 APTT 48.9 Seconds (26.0-36.0) H 10/14/18 07:44 Sodium 136 mEq/L (136-145) 10/19/18 07:13 Potassium 3.6 mEq/L (3.5-5.1) 10/19/18 07:13 Chloride 102 mEq/L (98-107) 10/19/18 07:13 Carbon Dioxide 28 mEq/L (23-29) 10/19/18 07:13 BUN 10 mg/dL (6-20) 10/19/18 07:13 Creatinine 0.75 mg/dL (0.70-1.30) 10/19/18 07:13 Est GFR ( Amer) > 60 (> 60) 10/19/18 07:13 Est GFR (Non-Af Amer) > 60 (> 60) 10/19/18 07:13 BUN/Creatinine Ratio 13 (6-26) 10/19/18 07:13 Glucose 128 mg/dL (70-105) H 10/19/18 07:13 POC Glucose 130 mg/dL (70-99) H 10/19/18 06:57 Est Mean Plasma Glucose 131 mg/dl 10/14/18 05:03 Hemoglobin A1c 6.2 % (-5.6) H 10/14/18 05:03 Calculated Osmolality 283 (280-300) 10/19/18 07:13 Calcium 9.2 mg/dL (8.6-10.3) 10/19/18 07:13 Phosphorus 3.0 mg/dL (2.7-4.5) 10/15/18 04:26 Magnesium 1.6 mg/dL (1.6-2.6) 10/19/18 07:13 Total Bilirubin 5.7 mg/dL (0.3-1.0) H 10/19/18 07:13 Direct Bilirubin 4.6 mg/dL (0.0-0.2) H 10/14/18 05:03 Indirect Bilirubin 1.9 mg/dL (0.0-1.2) H 10/14/18 05:03 AST 812 Units/L (13-39) H 10/19/18 07:13 ALT > 500 Units/L (7-52) H 10/19/18 07:13 Alkaline Phosphatase 151 Units/L (34-104) H 10/19/18 07:13 Ammonia 75 mcmol/L (16-53) H 10/19/18 09:57 Serum Total Protein 8.1 g/dL (6.4-8.9) 10/19/18 07:13 Albumin 3.5 g/dL (3.5-5.7) 10/19/18 07:13 Globulin 4.6 g/dL (2.4-3.5) H 10/19/18 07:13 Albumin/Globulin Ratio 0.8 (1.1-2.2) L 10/19/18 07:13 Lipase 52 Units/L (11-82) 10/14/18 05:03 Urine Color Dark Yellow (Yellow) 10/14/18 03:00 Urine Clarity Cloudy (Clear) A 10/14/18 03:00 Urine pH 6.0 pH Units (5.0-8.0) 10/14/18 03:00 Ur Specific [place] < 1.005 (1.010-1.025) L 10/14/18 03:00 Urine Protein Negative mg/dL (Neg-Trace) 10/14/18 03:00 Urine Glucose (UA) Normal mg/dL (Normal) 10/14/18 03:00 Urine Ketones Negative mg/dL (Negative) 10/14/18 03:00 Urine Blood Negative (Negative) 10/14/18 03:00 Urine Nitrite Negative (Negative) 10/14/18 03:00 Urine Bilirubin Small (Negative) H 10/14/18 03:00 Urine Urobilinogen Normal mg/dL (Normal) 10/14/18 03:00 Ur Leukocyte Esterase Negative (Negative) 10/14/18 03:00 Urine Microscopic RBC 0-3 per hpf (0-3) 10/14/18 03:00 Urine Microscopic WBC 0-3 per hpf (0-3) 10/14/18 03:00 Ur Squamous Epith Cells None Seen per lpf (None-Few) 10/14/18 03:00 Urine Bacteria Moderate per hpf (None-Few) H 10/14/18 03:00 Hyaline Casts None Seen per lpf (None-Few) 10/14/18 03:00 Salicylates < 2.5 mg/dL (15.0-30.0) L 10/14/18 05:03 Urine Opiates Screen Negative ng/mL (Loadla=471) 10/14/18 03:00 Acetaminophen < 10 mcg/mL (10-20) L 10/14/18 05:03 Ur Barbiturates Screen Negative ng/mL (Znhbaa=479) 10/14/18 03:00 Ur Phencyclidine Scrn Negative ng/mL (Cutoff=25) 10/14/18 03:00 Ur Amphetamines Screen Negative ng/mL (Irjiln=8456) 10/14/18 03:00 U Benzodiazepines Scrn Negative ng/mL (Bhyolv=133) 10/14/18 03:00 Urine Cocaine Screen Negative ng/mL (Cutoff= 300) 10/14/18 03:00 U Marijuana (THC) Screen Positive ng/mL (Cutoff = 50) H 10/14/18 03:00 Ur Drug Screen Interp See Below 10/14/18 03:00 Ethyl Alcohol < 10 mg/dL (Less than 10) 10/14/18 05:03 Hepatitis A IgM Ab Reactive (Nonreactive) H 10/14/18 05:23 Hep Bs Antigen Reactive (Nonreactive) H 10/14/18 05:23 Hep Bs Ag Confirmation POSITIVE (Non Confirmed) A 10/14/18 05:23 Hep Bs Antibody 4.65 mIU/mL (10.00-) L 10/14/18 14:16 Hep B Core IgM Ab Reactive (Nonreactive) H 10/14/18 05:23 Hepatitis Be Antibody NEGATIVE (Negative) 10/14/18 14:16 Hepatitis Be Antigen POSITIVE (Negative) A 10/14/18 14:16 Hepatitis C Ab Screen Reactive (Nonreactive) H 10/14/18 05:23 Consult Discharge Plan - Plan Referrals: Joe Bell MD [Partnered Physician] - - Attending Attestation I examined this patient and my medical decision-making was reviewed with the Resident Physician. I agree with the documented findings, disposition and treatment plan as described except to the extent set forth below. Client denies SI, intent, or plan today. States this happens a lot where he drinks, endorses SI, and then has to recant when he is sober. No history of attempts. Admits to drinking 12-24 beers daily. Interested in rehab if he can get transportation so recommend a forensic social worker consult. No need for inpatient mental health treatment. Will sign off. Call if any questions.
[2018-10-19] MEDS: traMADol 50 MG TABLET PO PRN ×2 (15:51→20:59)
--- NOTE | 2018-10-19 19:47 | Event Note ---
Date of Encounter: 10/19/18 Time of Encounter: 17:00 Psychiatry note reviewed. Contacted psychiatry, spoke to RN regarding his pink slip status and whether or not orders for sitter and suicidal precautions should be continued --per conversation, these orders can be discontinued and pink slip no longer effective as psychiatry has signed off and patient isn't requiring inpatient mental health services.
[2018-10-19] MEDS: Mirtazapine 15 MG TABLET PO SCH (20:59)
[2018-10-20] MEDS: *HR* LORazepam 2 MG/ML VIAL IVP PRN ×3 (00:42→05:01)
[2018-10-20] MEDS ORDERED: *HR* LORazepam 2 MG/ML VIAL IVP ONE (02:50)
[2018-10-20] MEDS: Nicotine 2 MG GUM BC SCH ×8 (04:27→23:37)
[2018-10-20 06:45] LABS: Basophils # 0.1 K/mcL (0.0-0.2); Basophils % 1.2 %; Eosinophils # 0.3 K/mcL (0.0-0.6); Eosinophils % 3.5 %; Hematocrit 40.5 % (37.5-50.1); Hemoglobin 13.7 g/dL (12.9-16.9); Immature Granulocytes % 0.6 % (0-4); Lymphocytes # 2.9 K/mcL (0.6-4.6); Lymphocytes % 32.4 %; Mean Corpuscular HGB Conc 33.8 g/dL (31.6-35.5); Mean Corpuscular Hemoglobin 29.1 pg (28.0-33.3); Mean Platelet Volume 10.9 fL (9.4-12.4); Monocytes % 10.8 %; Neutrophils # 4.7 K/mcL (1.6-8.9); Platelet Count 233 K/mcL (140-400); Red Blood Count 4.71 M/mcL (4.19-5.50); Red Cell Distribution Width 18.9 % (11.5-14.5); Segmented Neutrophils % 51.5 %
[2018-10-20 06:53] LABS: INR 1.2; Prothrombin Time 13.9 Seconds (9.4-12.1)
[2018-10-20 07:22] LABS: Alanine Aminotransferase > 500 Units/L (7-52); Albumin 3.7 g/dL (3.5-5.7); Albumin/Globulin Ratio 0.8 (1.1-2.2); Alkaline Phosphatase 151 Units/L (34-104); Aspartate Amino Transferase 728 Units/L (13-39); BUN/Creatinine Ratio 18 (6-26); Bilirubin,Total 4.9 mg/dL (0.3-1.0); Blood Urea Nitrogen 14 mg/dL (6-20); Calcium 9.4 mg/dL (8.6-10.3); Carbon Dioxide 25 mEq/L (23-29); Chloride 99 mEq/L (98-107); Globulin 4.6 g/dL (2.4-3.5); Glucose 161 mg/dL (70-105); Osmolality,Calculated 284 (280-300); Potassium 3.5 mEq/L (3.5-5.1); Sodium 135 mEq/L (136-145); Total Protein 8.3 g/dL (6.4-8.9); eGFR For Non-African Americans > 60 (> 60)
[2018-10-20] MEDS: Folic Acid 1 MG TABLET PO SCH (09:27)
[2018-10-20] MEDS: Thiamine (B-1) 100 MG TABLET PO SCH (09:27)
[2018-10-20] MEDS: Gabapentin 100 MG CAPSULE PO SCH ×3 (09:28→19:54)
[2018-10-20] MEDS: amLODIPine 5 MG TABLET PO SCH (09:28)
[2018-10-20] MEDS: Lactulose Oral Soln 20 GM/30 ML UDC PO SCH ×2 (09:28→19:57)
[2018-10-20] MEDS: Vitamin B Complex/Vit C/Vit E 1 EACH TABLET PO SCH (09:28)
[2018-10-20] MEDS: Insulin LISPRO 300 UNITS/3 ML VIAL SQ SCH ×4 (09:29→20:03)
[2018-10-20] MEDS: Nystatin POWDER 30 GM BOTTLE TP SCH ×3 (09:29→19:59)
[2018-10-20] MEDS: cloNIDine HCl 0.1 MG TABLET PO SCH ×3 (11:05→19:54)
--- NOTE | 2018-10-20 13:42 | Internal Med Progress Note ---
<Alvin Mcgovern P - Last Filed: 10/20/18 16:56> Hospitalist Progress Note - Encounter Date of Encounter: 10/20/18 Time of Encounter: 13:39 - Subjective Interval History: Patient is a 48 year WM on hospital day 7 here for what he was calling "shakes" on ED admission. He has PMH of alc abuse, HTN, obesity, htn, hep c, IV drug use, hx of DT's and DM II. He appears well nourished, well-developed. Patient is in deep sleep and unarousable. Unattainable ROS. - Exam Vitals: Temp Pulse Resp BP Pulse Ox 98.5 F 88 18 140/81 93 10/20/18 10:06 10/20/18 10:06 10/20/18 10:06 10/20/18 10:06 10/20/18 10:06 Exam: - Head Head exam: Present: atraumatic, normocephalic - Eye Eye exam: Present: conjuntiva pink, scleral icterus - ENT ENT exam: Present: mucous membranes moist. patent nares. - Respiratory Respiratory exam: Present: decreased breath sounds. No rales, rhonchi - Cardiovascular Cardiovascular exam: Present: RRR. No murmurs appreciated. - GI/Abdominal GI/Abdominal exam: Present: distended, soft, tenderness. No peritoneal signs, rebound tenderness or guarding. - Extremities Exam Extremities exam: bilateral purpura. absent joint swelling, pedal edema, tenderness. - Neurological Exam Neurological exam: Present: alert and moves all extremities - Psychiatric Psychiatric exam: Present: agitated, non-cooperative - Skin Skin exam: Present: dry, warm, mild jaundice. Absent: rash - Assessment and Plan (1) Metabolic encephalopathy Current Visit: Yes Status: Acute Assessment and Plan: Pt has elevated ammonia in setting of acute hepatitis Liver enzymes trending down. Ammonia is decreased at 69 today. Continue to monitor bowel movements for Lactulose dosage considerations. GI following. Appreciate recommendations. (2) Alcohol dependence with withdrawal Current Visit: Yes Status: Acute Assessment and Plan: Pt has long standing hx of ETOH abuse. He has had multiple admissions for complaints of withdrawal and has history of requesting Ativan frequently. Follow and trend CIWA scores. Goal is to wean off ativan. If agitated use 0.5 mg-1 mg ativan prn. Continue Folate and thiamine In the past he has been seen by psychiatry and was started on Neurontin during his last visit. He says he no longer takes it (ran out and couldn't get more). Continue neurontin (3) Hepatitis A Current Visit: Yes Status: Acute Assessment and Plan: Pt has markedly elevated liver function. Hepatitis A IGM positive. Anticipate increased total bili in setting acute hepatitis. Transaminases are down trending/stable. No steroids needed, continue PPI and supportive care. Infection prevention nursing staff has reported his hepatitis status (4) Hypokalemia Current Visit: Yes Status: Resolved Assessment and Plan: Potassium 2.9 on admission and potassium was given. -Potassium today is 3.5. Continue to monitor. (5) Hepatitis C Current Visit: Yes Status: Chronic Assessment and Plan: Patient has known history of Hep C due to IV drug use. (6) Hepatitis B Current Visit: Yes Status: Suspected Assessment and Plan: Pt presented with markedly elevated liver function. Admits to IV drug use since last admit. Hep B surface antigen and core IGM positive. Surface antibody is low. Supportive care for now. Outpatient follow-up for potential hepatitis B booster vaccine. (7) Suicidal ideation Current Visit: Yes Status: Acute Assessment and Plan: Pt reported in ED that he might harm himself on admission. Patient has been smearing feces over the wall in the bathroom. Sitter at bedside. Has a sitter currently. Continue sitter today. Dr. Mauricio spoke to RN regarding his pink slip status and whether or not orders for sitter and suicidal precautions should be continued --per conversation, these orders can be discontinued and pink slip no longer effective as psychiatry has signed off and patient isn't requiring inpatient mental health services. Suicidal precuations on board. Psych saw patient yesterday and recommended Haloperidol 5mg PO or IM Q4H PRN and Diphenhydramine 50mg PO or IM Q4H PRN if aggression becomes violent and is not controlled with verbal calming and redirecting techniques. Also Recommended Psychiatric and counseling follow up upon discharge. (8) DM2 (diabetes mellitus, type 2) Current Visit: Yes Status: Chronic Assessment and Plan: Pt currently not on any meds. HgbA1C 6.2% Will check sugars and cover with low dose sliding scale. Diabetic diet ordered. (9) Diastolic CHF, chronic Current Visit: No Status: Chronic Assessment and Plan: Chronic issue with no signs of acute exacerbation. (10) Hypertension Current Visit: Yes Status: Chronic Assessment and Plan: Pt has hx of HTN. Has not been taking meds. Blood pressure currently elevated due to ETOH withdrawal. Atenolol PO dosage increased. Continue PRN Hydralazine and Clonidine PRN with ETOH withdrawal. (11) Morbid obesity Current Visit: Yes Status: Chronic Assessment and Plan: BMI 48. Lifestyle modification (12) Polysubstance abuse Current Visit: Yes Status: Chronic Assessment and Plan: Patient has chronic issue of polysubstance abuse. (13) Tobacco abuse Current Visit: Yes Status: Chronic Assessment and Plan: cessation counseled. DVT Prophylaxis: SCDs for vte ppx given thrombocytopenia chronically and elevated inr - Time Spent with Patient Total time spent is greater than 50% in coordination of care (as documented) at patient's floor/unit and/or counseling patient: Internal Medicine: Result - Labs CBC & Chem 7: 10/20/18 06:34 10/20/18 06:34 Labs: Short CBC 10/20/18 Range/Units 06:34 WBC 9.1 (4.3-11.1) K/mcL Hgb 13.7 (12.9-16.9) g/dL Hct 40.5 (37.5-50.1) % Plt Count 233 (140-400) K/mcL Neutrophils # 4.7 (1.6-8.9) K/mcL BMP 10/20/18 06:34 Sodium 135 L Potassium 3.5 Chloride 99 Carbon Dioxide 25 BUN 14 Creatinine 0.79 Glucose 161 H Calcium 9.4 Liver Function 10/20/18 Range/Units 06:34 Total Bilirubin 4.9 H (0.3-1.0) mg/dL AST 728 H (13-39) Units/L ALT > 500 H (7-52) Units/L Alkaline Phosphatase 151 H (34-104) Units/L Albumin 3.7 (3.5-5.7) g/dL - ABG Interpretation ABG results: PT/INR, D-dimer PT 13.9 Seconds (9.4-12.1) H 10/20/18 06:34 Consult Discharge Plan - Plan Referrals: Joe Bell MD [Partnered Physician] - <Melia Culver - Last Filed: 10/20/18 18:03> Hospitalist Progress Note - Encounter Date of Encounter: 10/20/18 - Exam Vitals: Temp Pulse Resp BP Pulse Ox 98.5 F 88 18 140/81 93 10/20/18 10:06 10/20/18 10:06 10/20/18 10:06 10/20/18 10:06 10/20/18 10:06 - Assessment and Plan (1) Hypertension Current Visit: Yes Status: Chronic (2) Polysubstance abuse Current Visit: Yes Status: Chronic (3) Tobacco abuse Current Visit: Yes Status: Chronic (4) Alcohol dependence with withdrawal Current Visit: Yes Status: Acute (5) Suicidal ideation Current Visit: Yes Status: Acute (6) DM2 (diabetes mellitus, type 2) Current Visit: Yes Status: Chronic (7) Diastolic CHF, chronic Current Visit: No Status: Chronic (8) Hypomagnesemia Current Visit: No Status: Acute (9) Hepatitis A Current Visit: Yes Status: Acute (10) Hepatitis B Current Visit: Yes Status: Suspected (11) Hypokalemia Current Visit: Yes Status: Resolved (12) Hepatic encephalopathy Current Visit: Yes Status: Deleted (13) Hepatitis C Current Visit: Yes Status: Chronic (14) BMI 40.0-44.9, adult Current Visit: Yes Status: Chronic - Time Spent with Patient Total time spent is greater than 50% in coordination of care (as documented) at patient's floor/unit and/or counseling patient: Internal Medicine: Result - Labs CBC & Chem 7: 10/20/18 06:34 10/20/18 06:34 Labs: Short CBC 10/20/18 Range/Units 06:34 WBC 9.1 (4.3-11.1) K/mcL Hgb 13.7 (12.9-16.9) g/dL Hct 40.5 (37.5-50.1) % Plt Count 233 (140-400) K/mcL Neutrophils # 4.7 (1.6-8.9) K/mcL BMP 10/20/18 06:34 Sodium 135 L Potassium 3.5 Chloride 99 Carbon Dioxide 25 BUN 14 Creatinine 0.79 Glucose 161 H Calcium 9.4 Liver Function 10/20/18 Range/Units 06:34 Total Bilirubin 4.9 H (0.3-1.0) mg/dL AST 728 H (13-39) Units/L ALT > 500 H (7-52) Units/L Alkaline Phosphatase 151 H (34-104) Units/L Albumin 3.7 (3.5-5.7) g/dL - ABG Interpretation ABG results: PT/INR, D-dimer PT 13.9 Seconds (9.4-12.1) H 10/20/18 06:34 - Attending Attestation The history, physical exam, and medical decision making was performed by the medical student Shaniqua either while I was physically present and actively involved or I personally re-performed the exam and medical decision making. I have verified the accuracy of the medical student's documentation with regards to the history, physical exam findings, and medical decision making. Mr Adams is admitted for metabolic encephalopathy, etoh withdrawal, hepatic encephalopathy with acute hepatitis infection asleep, awakes to name, more pleasant and answers all questions, feels unwell, anxious, but falls to sleep and needs woken back up as has received ativan. He notes hand tremors overnight. no cp, palpitations, hearing of voices or SI. no n/v. CIWA scale 10-12 overnight, 8mg ativan yesterday, 6mg ativan thus far since midnight gen- awake, alert, appears stated age, obese eyes- pupils equal round , + faint scleral icterus cv- reg rate and rhythm, normal s1,s2, no murmurs appreciated lungs- ctabl, no wheezing, rhonchi or crackles, normal resp effort on ra abd- soft, non tender, non distended, + bs skin- + faint jaundice, no pallor neuro- AAOxperson, hospital setting, situation, CN grossly intact, no focal deficits,no hand tremor Metabolic encephalopathy,improving multifactorial- hepatic nature 2/2 acute hepatitis infection and elevated ammonia level, now moreso etoh withdrawal with ativan Hepatic Encephalopathy, likely resolved given labs /ammonia Acute Hepatitis A and B infections Hx Hep C infection No identification of cirrhosis on imaging -stable lfts,monitoring bms and adjusting lactulose prn ETOH abuse in active w/d ETOH withdrawal with hx DTs -ciwa, thiamine/folate/mvi, monitor and replete lytes, tele DM- SSI and accu checks, prn hypoglycemics HTN- cont CCB + BB + ACEI, remains higher than goal, schedule tid 0.1 mg clonidine today , will require outpt fu on dc Morbid obesity with BMI 47.5 - diet education SI - snce resolved, psych saw and removed pink slip and no need for suicide precautions, outpt fu will keep sitter for encephalopathy as above scds for vte ppx given thrombocytopenia chronically and elevated inr <Alvin Mcgovern P - Last Filed: 10/20/18 16:56> (2) Alcohol dependence with withdrawal Qualifiers: Complication of substance-induced condition: with delirium Qualified Code(s): F10.231 - Alcohol dependence with withdrawal delirium (3) Hepatitis A Qualifiers: Hepatic coma status: without hepatic coma Qualified Code(s): B15.9 - Hepatitis A without hepatic coma (5) Hepatitis C Qualifiers: Viral hepatitis chronicity: unspecified Hepatic coma status: without hepatic coma Qualified Code(s): B19.20 - Unspecified viral hepatitis C without hepatic coma (6) Hepatitis B Qualifiers: Viral hepatitis chronicity: acute Hepatic coma status: without hepatic coma Hepatitis delta agent presence: without delta-agent Qualified Code(s): B16.9 - Acute hepatitis B without delta-agent and without hepatic coma (8) DM2 (diabetes mellitus, type 2) Qualifiers: Diabetes mellitus intermediate accountant insulin use: without chcf use Diabetes mellitus complication status: without complication Qualified Code(s): E11.9 - Type 2 diabetes mellitus without complications (10) Hypertension Qualifiers: Hypertension type: essential hypertension Qualified Code(s): I10 - Essential (primary) hypertension <Melia Culver - Last Filed: 10/20/18 18:03> (1) Hypertension Qualifiers: Hypertension type: essential hypertension Qualified Code(s): I10 - Essential (primary) hypertension (4) Alcohol dependence with withdrawal Qualifiers: Complication of substance-induced condition: with delirium Qualified Code(s): F10.231 - Alcohol dependence with withdrawal delirium (6) DM2 (diabetes mellitus, type 2) Qualifiers: Diabetes mellitus intermediate accountant insulin use: without chcf use Diabetes mellitus complication status: without complication Qualified Code(s): E11.9 - Type 2 diabetes mellitus without complications (9) Hepatitis A Qualifiers: Hepatic coma status: without hepatic coma Qualified Code(s): B15.9 - Hepatitis A without hepatic coma (10) Hepatitis B Qualifiers: Viral hepatitis chronicity: acute Hepatic coma status: without hepatic coma Hepatitis delta agent presence: without delta-agent Qualified Code(s): B16.9 - Acute hepatitis B without delta-agent and without hepatic coma (13) Hepatitis C Qualifiers: Viral hepatitis chronicity: unspecified Hepatic coma status: without hepatic coma Qualified Code(s): B19.20 - Unspecified viral hepatitis C without hepatic coma
[2018-10-20] MEDS: Mirtazapine 15 MG TABLET PO SCH (19:55)
[2018-10-21 04:02] LABS: Basophils # 0.1 K/mcL (0.0-0.2); Basophils % 1.5 %; Eosinophils # 0.3 K/mcL (0.0-0.6); Eosinophils % 3.8 %; Hematocrit 40.5 % (37.5-50.1); Hemoglobin 13.6 g/dL (12.9-16.9); Immature Granulocytes % 0.4 % (0-4); Lymphocytes # 2.5 K/mcL (0.6-4.6); Lymphocytes % 33.5 %; Mean Corpuscular HGB Conc 33.6 g/dL (31.6-35.5); Mean Corpuscular Hemoglobin 29.1 pg (28.0-33.3); Mean Corpuscular Volume 86.7 fL (83.0-100.0); Mean Platelet Volume 11.8 fL (9.4-12.4); Monocytes # 0.7 K/mcL (0.0-1.3); Monocytes % 9.2 %; Neutrophils # 3.9 K/mcL (1.6-8.9); Platelet Count 228 K/mcL (140-400); Red Blood Count 4.67 M/mcL (4.19-5.50); Red Cell Distribution Width 19.1 % (11.5-14.5); Segmented Neutrophils % 51.6 %
[2018-10-21 04:22] LABS: BUN/Creatinine Ratio 16 (6-26); Blood Urea Nitrogen 11 mg/dL (6-20); Calcium 9.2 mg/dL (8.6-10.3); Carbon Dioxide 26 mEq/L (23-29); Chloride 102 mEq/L (98-107); Glucose 131 mg/dL (70-105); Osmolality,Calculated 283 (280-300); Potassium 3.7 mEq/L (3.5-5.1); Sodium 136 mEq/L (136-145); eGFR For Non-African Americans > 60 (> 60)
[2018-10-21] MEDS: Nicotine 2 MG GUM BC SCH ×9 (06:41→22:19)
--- NOTE | 2018-10-21 09:52 | Internal Med Progress Note ---
<Alvin Mcgovern - Last Filed: 10/21/18 14:14> Hospitalist Progress Note - Encounter Date of Encounter: 10/21/18 Time of Encounter: 09:00 - Subjective Interval History: Patient is a 48 year WM on hospital day 8 here for what he was calling "anatoliy" on ED admission. He has PMH of alc abuse, HTN, obesity, htn, hep c, IV drug use, hx of DT's and DM II. He appears well nourished, well-developed. Patient is sleep and partially arousable. Says his abdominal pain is less today but does not rate his abdominal pain. Admits to associated symptoms of a headache (that has been on and off throughout his stay) and cramps in legs. - Exam Vitals: Temp Pulse Resp BP Pulse Ox 97.5 F L 78 16 175/90 96 10/21/18 07:07 10/21/18 07:07 10/21/18 07:07 10/21/18 07:07 10/21/18 07:07 Exam: - Head Head exam: Present: atraumatic, normocephalic - Eye Eye exam: Present: conjuntiva pink, scleral icterus - ENT ENT exam: Present: mucous membranes moist. patent nares. - Respiratory Respiratory exam: Present: decreased breath sounds. No rales, rhonchi - Cardiovascular Cardiovascular exam: Present: RRR. No murmurs appreciated. - GI/Abdominal GI/Abdominal exam: Present: distended, soft, tenderness. No peritoneal signs, rebound tenderness or guarding. - Extremities Exam Extremities exam: bilateral purpura. absent joint swelling, pedal edema, tenderness. - Neurological Exam Neurological exam: Present: alert and moves all extremities - Psychiatric Psychiatric exam: Present: agitated, non-cooperative - Skin Skin exam: Present: dry, warm, mild jaundice, eccymohosis has reduced in bilateral legs. Absent: rash - Assessment and Plan (1) Metabolic encephalopathy Current Visit: Yes Status: Acute Assessment and Plan: Pt has elevated ammonia in setting of acute hepatitis Liver enzymes continue to downtrend, PT/INR stable from yesterday, Ammonia is up to 98 from 69 yesterday. Lactulose dosage has been increased. Continue to monitor bowel movements for Lactulose dosage considerations. GI following. Appreciate recommendations. (2) Alcohol dependence with withdrawal Current Visit: Yes Status: Acute Assessment and Plan: Pt has long standing hx of ETOH abuse. He has had multiple admissions for complaints of withdrawal and has history of requesting Ativan frequently. stop CIWA protocol. stop requesting ativan. Continue Folate and thiamine In the past he has been seen by psychiatry and was started on Neurontin during his last visit. He says he no longer takes it (ran out and couldn't get more). Continue neurontin (3) Hepatitis A Current Visit: Yes Status: Acute Assessment and Plan: Pt has markedly elevated liver function. Hepatitis A IGM positive. Anticipate increased total bili in setting acute hepatitis. Transaminases are down trending/stable. No steroids needed, continue PPI and supportive care. Infection prevention nursing staff has reported his hepatitis status (4) Hypokalemia Current Visit: Yes Status: Resolved Assessment and Plan: Potassium 2.9 on admission and potassium was given. -Potassium today is 3.5. Continue to monitor. (5) Hepatitis C Current Visit: Yes Status: Chronic Assessment and Plan: Patient has known history of Hep C due to IV drug use. (6) Hepatitis B Current Visit: Yes Status: Suspected Assessment and Plan: Pt presented with markedly elevated liver function. Admits to IV drug use since last admit. Hep B surface antigen and core IGM positive. Surface antibody is low. Supportive care for now. Outpatient follow-up for potential hepatitis B booster vaccine. (7) Suicidal ideation Current Visit: Yes Status: Acute Assessment and Plan: Pt reported in ED that he might harm himself on admission. Has a sitter currently. Continue sitter today. Dr. Mauricio spoke to RN regarding his pink slip status and whether or not orders for sitter and suicidal precautions should be continued --per conversation, these orders can be discontinued and pink slip no longer effective as psychiatry has signed off and patient isn't requiring inpatient mental health services. Psych saw patient yesterday and recommended Haloperidol 5mg PO or IM Q4H PRN and Diphenhydramine 50mg PO or IM Q4H PRN if aggression becomes violent and is not controlled with verbal calming and redirecting techniques. Also Recommended Psychiatric and counseling follow up upon discharge. (8) DM2 (diabetes mellitus, type 2) Current Visit: Yes Status: Chronic Assessment and Plan: Pt currently not on any meds. HgbA1C 6.2% Will check sugars and cover with low dose sliding scale. Diabetic diet ordered. (9) Diastolic CHF, chronic Current Visit: No Status: Chronic Assessment and Plan: Chronic issue with no signs of acute exacerbation. (10) Hypertension Current Visit: Yes Status: Chronic Assessment and Plan: Pt has hx of HTN. Has not been taking meds. Blood pressure currently elevated due to ETOH withdrawal. Atenolol PO dosage increased. Continue PRN Hydralazine and 0.1 mg clonidine PO TID. Lisinopril PO dosage increased. (11) Morbid obesity Current Visit: Yes Status: Chronic Assessment and Plan: BMI 48. Lifestyle modification (12) Polysubstance abuse Current Visit: Yes Status: Chronic Assessment and Plan: Patient has chronic issue of polysubstance abuse. (13) Tobacco abuse Current Visit: Yes Status: Chronic Assessment and Plan: cessation counseled. DVT Prophylaxis: SCDs for vte ppx given thrombocytopenia chronically and elevated inr - Time Spent with Patient Total time spent is greater than 50% in coordination of care (as documented) at patient's floor/unit and/or counseling patient: Internal Medicine: Result - Labs CBC & Chem 7: 10/21/18 03:27 10/21/18 03:27 Labs: Short CBC 10/21/18 Range/Units 03:27 WBC 7.5 (4.3-11.1) K/mcL Hgb 13.6 (12.9-16.9) g/dL Hct 40.5 (37.5-50.1) % Plt Count 228 (140-400) K/mcL Neutrophils # 3.9 (1.6-8.9) K/mcL BMP 10/21/18 03:27 Sodium 136 Potassium 3.7 Chloride 102 Carbon Dioxide 26 BUN 11 Creatinine 0.70 Glucose 131 H Calcium 9.2 - ABG Interpretation ABG results: PT/INR, D-dimer PT 13.9 Seconds (9.4-12.1) H 10/20/18 06:34 Consult Discharge Plan - Plan Referrals: Joe Bell MD [Partnered Physician] - <Davi Mendez - Last Filed: 10/21/18 17:49> Hospitalist Progress Note - Encounter Date of Encounter: 10/21/18 - Exam Vitals: Temp Pulse Resp BP Pulse Ox 98.2 F 72 16 136/74 96 10/21/18 16:36 10/21/18 16:36 10/21/18 16:36 10/21/18 16:36 10/21/18 16:36 - Assessment and Plan (1) Hypertension Current Visit: Yes Status: Chronic (2) Polysubstance abuse Current Visit: Yes Status: Chronic (3) Tobacco abuse Current Visit: Yes Status: Chronic (4) Alcohol dependence with withdrawal Current Visit: Yes Status: Acute (5) Suicidal ideation Current Visit: Yes Status: Acute (6) DM2 (diabetes mellitus, type 2) Current Visit: Yes Status: Chronic (7) Diastolic CHF, chronic Current Visit: No Status: Chronic (8) Hypomagnesemia Current Visit: No Status: Acute (9) Hepatitis A Current Visit: Yes Status: Acute (10) Hepatitis B Current Visit: Yes Status: Suspected (11) Hypokalemia Current Visit: Yes Status: Resolved (12) Hepatic encephalopathy Current Visit: Yes Status: Resolved (13) Hepatitis C Current Visit: Yes Status: Chronic (14) BMI 40.0-44.9, adult Current Visit: Yes Status: Chronic - Time Spent with Patient Total time spent is greater than 50% in coordination of care (as documented) at patient's floor/unit and/or counseling patient: Internal Medicine: Result - Labs CBC & Chem 7: 10/21/18 03:27 10/21/18 03:27 Labs: Short CBC 10/21/18 Range/Units 03:27 WBC 7.5 (4.3-11.1) K/mcL Hgb 13.6 (12.9-16.9) g/dL Hct 40.5 (37.5-50.1) % Plt Count 228 (140-400) K/mcL Neutrophils # 3.9 (1.6-8.9) K/mcL BMP 10/21/18 03:27 Sodium 136 Potassium 3.7 Chloride 102 Carbon Dioxide 26 BUN 11 Creatinine 0.70 Glucose 131 H Calcium 9.2 Liver Function 10/21/18 Range/Units 10:58 Total Bilirubin 3.9 H (0.3-1.0) mg/dL Direct Bilirubin 2.3 H (0.0-0.2) mg/dL AST 537 H (13-39) Units/L ALT > 500 H (7-52) Units/L Alkaline Phosphatase 140 H (34-104) Units/L Albumin 3.2 L (3.5-5.7) g/dL - ABG Interpretation ABG results: PT/INR, D-dimer PT 13.9 Seconds (9.4-12.1) H 10/21/18 11:10 - Attending Attestation The history, physical exam, and medical decision making was performed by the medical student either while I was physically present and actively involved or I personally re-performed the exam and medical decision making. I have verified the accuracy of the medical student's documentation with regards to the history, physical exam findings, and medical decision making on 10/21/18. Mr Adams is currently admitted for acute hepatitis and alcohol withdrawal. He remains moderate risk at this time. Mr Adams is doing better overall. His liver function is improving. Still having "shakes." Has not had Ativan in over 24 hours. No fever or chills. Exam alert Comfortable Normocephalic Mucus membranes dry Heart not tachy now Decreased lung sounds Abd distended. Non tender now Moves all extremities Pulses palpable I/P 1. Acute hepatitis - slowly improving. Will need outpatient follow up 2. ETOH witdrawal - improved - CIWA stopped. Hydroxyzine for "shakes." 3. Morbid obesity 4. HTN - uncontrolled. Meds adjusted. Further diagnoses and plan as above. Anticipate d/c tomorrow. <Alvin Mcgovern P - Last Filed: 10/21/18 14:14> (2) Alcohol dependence with withdrawal Qualifiers: Complication of substance-induced condition: with delirium Qualified Code(s): F10.231 - Alcohol dependence with withdrawal delirium (3) Hepatitis A Qualifiers: Hepatic coma status: without hepatic coma Qualified Code(s): B15.9 - Hepatitis A without hepatic coma (5) Hepatitis C Qualifiers: Viral hepatitis chronicity: unspecified Hepatic coma status: without hepatic coma Qualified Code(s): B19.20 - Unspecified viral hepatitis C without hepatic coma (6) Hepatitis B Qualifiers: Viral hepatitis chronicity: acute Hepatic coma status: without hepatic coma Hepatitis delta agent presence: without delta-agent Qualified Code(s): B16.9 - Acute hepatitis B without delta-agent and without hepatic coma (8) DM2 (diabetes mellitus, type 2) Qualifiers: Diabetes mellitus fci insulin use: without fci use Diabetes mellitus complication status: without complication Qualified Code(s): E11.9 - Type 2 diabetes mellitus without complications (10) Hypertension Qualifiers: Hypertension type: essential hypertension Qualified Code(s): I10 - Essential (primary) hypertension <Davi Mendez - Last Filed: 10/21/18 17:49> (1) Hypertension Qualifiers: Hypertension type: essential hypertension Qualified Code(s): I10 - Essential (primary) hypertension (4) Alcohol dependence with withdrawal Qualifiers: Complication of substance-induced condition: with delirium Qualified Code(s): F10.231 - Alcohol dependence with withdrawal delirium (6) DM2 (diabetes mellitus, type 2) Qualifiers: Diabetes mellitus fci insulin use: without terminal gauger use Diabetes mellitus complication status: without complication Qualified Code(s): E11.9 - Type 2 diabetes mellitus without complications (9) Hepatitis A Qualifiers: Hepatic coma status: without hepatic coma Qualified Code(s): B15.9 - Hepatitis A without hepatic coma (10) Hepatitis B Qualifiers: Viral hepatitis chronicity: acute Hepatic coma status: without hepatic coma Hepatitis delta agent presence: without delta-agent Qualified Code(s): B16.9 - Acute hepatitis B without delta-agent and without hepatic coma (13) Hepatitis C Qualifiers: Viral hepatitis chronicity: unspecified Hepatic coma status: without hepatic coma Qualified Code(s): B19.20 - Unspecified viral hepatitis C without hepatic coma
[2018-10-21] MEDS: Folic Acid 1 MG TABLET PO SCH (09:53)
[2018-10-21] MEDS: amLODIPine 5 MG TABLET PO SCH (09:53)
[2018-10-21] MEDS: Thiamine (B-1) 100 MG TABLET PO SCH (09:53)
[2018-10-21] MEDS: Vitamin B Complex/Vit C/Vit E 1 EACH TABLET PO SCH (09:53)
[2018-10-21] MEDS: Gabapentin 100 MG CAPSULE PO SCH ×3 (09:53→20:33)
[2018-10-21] MEDS: cloNIDine HCl 0.1 MG TABLET PO SCH ×2 (09:53→16:38)
[2018-10-21] MEDS: Lactulose Oral Soln 20 GM/30 ML UDC PO SCH ×2 (09:53→20:33)
[2018-10-21] MEDS: Nystatin POWDER 30 GM BOTTLE TP SCH ×3 (09:54→20:35)
[2018-10-21] MEDS: Insulin LISPRO 300 UNITS/3 ML VIAL SQ SCH ×4 (09:56→20:36)
[2018-10-21 11:33] LABS: Alanine Aminotransferase > 500 Units/L (7-52); Albumin 3.2 g/dL (3.5-5.7); Albumin/Globulin Ratio 0.7 (1.1-2.2); Alkaline Phosphatase 140 Units/L (34-104); Aspartate Amino Transferase 537 Units/L (13-39); Bilirubin,Direct 2.3 mg/dL (0.0-0.2); Bilirubin,Indirect 1.6 mg/dL (0.0-1.2); Bilirubin,Total 3.9 mg/dL (0.3-1.0); Globulin 4.3 g/dL (2.4-3.5); Total Protein 7.5 g/dL (6.4-8.9)
[2018-10-21 11:46] LABS: INR 1.2; Prothrombin Time 13.9 Seconds (9.4-12.1)
[2018-10-21] MEDS: hydrOXYzine pamoate 25 MG CAPSULE PO PRN (16:38)
[2018-10-21] MEDS: Mirtazapine 15 MG TABLET PO SCH (20:33)
[2018-10-21] MEDS: *HR* OxyCODONE Immed Rel 5 MG TABLET PO PRN (20:57)
[2018-10-21] MEDS ORDERED: *HR* OxyCODONE Immed Rel 5 MG TABLET PO ONE (22:56)
[2018-10-22 04:09] LABS: Hematocrit 40.9 % (37.5-50.1); Hemoglobin 13.4 g/dL (12.9-16.9); Mean Corpuscular HGB Conc 32.8 g/dL (31.6-35.5); Mean Corpuscular Hemoglobin 28.8 pg (28.0-33.3); Mean Platelet Volume 12.2 fL (9.4-12.4); Platelet Count 218 K/mcL (140-400); Red Blood Count 4.65 M/mcL (4.19-5.50); Red Cell Distribution Width 18.6 % (11.5-14.5)
[2018-10-22 04:28] LABS: Alanine Aminotransferase 482 Units/L (7-52); Albumin 3.4 g/dL (3.5-5.7); Albumin/Globulin Ratio 0.7 (1.1-2.2); Alkaline Phosphatase 154 Units/L (34-104); Aspartate Amino Transferase 448 Units/L (13-39); BUN/Creatinine Ratio 15 (6-26); Bilirubin,Direct 1.8 mg/dL (0.0-0.2); Bilirubin,Indirect 1.3 mg/dL (0.0-1.2); Bilirubin,Total 3.1 mg/dL (0.3-1.0); Blood Urea Nitrogen 12 mg/dL (6-20); Calcium 9.1 mg/dL (8.6-10.3); Carbon Dioxide 24 mEq/L (23-29); Chloride 104 mEq/L (98-107); Globulin 4.6 g/dL (2.4-3.5); Glucose 263 mg/dL (70-105); Osmolality,Calculated 285 (280-300); Potassium 4.1 mEq/L (3.5-5.1); Sodium 133 mEq/L (136-145); eGFR For Non-African Americans > 60 (> 60)
[2018-10-22] MEDS: *HR* OxyCODONE Immed Rel 5 MG TABLET PO PRN ×2 (05:33→11:45)
[2018-10-22] MEDS: Nicotine 2 MG GUM BC SCH ×3 (05:36→11:46)
[2018-10-22] MEDS: Vitamin B Complex/Vit C/Vit E 1 EACH TABLET PO SCH (09:25)
[2018-10-22] MEDS: Thiamine (B-1) 100 MG TABLET PO SCH (09:25)
[2018-10-22] MEDS: amLODIPine 5 MG TABLET PO SCH (09:25)
[2018-10-22] MEDS: Folic Acid 1 MG TABLET PO SCH (09:25)
[2018-10-22] MEDS: Gabapentin 100 MG CAPSULE PO SCH (09:25)
[2018-10-22] MEDS: Insulin LISPRO 300 UNITS/3 ML VIAL SQ SCH ×2 (09:26→11:45)
[2018-10-22] MEDS: Lactulose Oral Soln 20 GM/30 ML UDC PO SCH (09:26)
[2018-10-22] MEDS: Nystatin POWDER 30 GM BOTTLE TP SCH (09:26)
[2018-10-22 11:29] VITALS: BP 172/85
--- NOTE | 2018-10-22 12:38 | Discharge Summary ---
<Alvin Mcgovern P - Last Filed: 10/22/18 16:59> - NOTES TO OUTPATIENT PROVIDER Notes to Outpatient Provider: Recommend patient to follow up with PCP on blood pressure, obesity, diastolic CHF, DM II, alcohol, tobacco and polysubstance abuse. Recommend patient to follow up with psychiatry and counseling for suicideal ideation. Recommend patient to follow up with gastrointestinal department for continued treatment of active hep A and B. Date of Encounter: 10/22/18 Time of Encounter: 09:00 - Discharge Diagnosis (1) Metabolic encephalopathy Priority: Primary Status: Acute (2) Alcohol dependence with withdrawal Priority: Primary Status: Acute Qualifiers: Complication of substance-induced condition: with delirium Qualified Code(s): F10.231 - Alcohol dependence with withdrawal delirium (3) Hepatitis A Priority: Primary Status: Acute Qualifiers: Hepatic coma status: without hepatic coma Qualified Code(s): B15.9 - Hepatitis A without hepatic coma (4) Hepatitis C Priority: Secondary Status: Chronic Qualifiers: Viral hepatitis chronicity: unspecified Hepatic coma status: without hepatic coma Qualified Code(s): B19.20 - Unspecified viral hepatitis C without hepatic coma (5) Hepatitis B Priority: Primary Status: Suspected Qualifiers: Viral hepatitis chronicity: acute Hepatic coma status: without hepatic coma Hepatitis delta agent presence: without delta-agent Qualified Code(s): B16.9 - Acute hepatitis B without delta-agent and without hepatic coma (6) Suicidal ideation Priority: Primary Status: Acute (7) DM2 (diabetes mellitus, type 2) Priority: Secondary Status: Chronic Qualifiers: Diabetes mellitus terminal operator insulin use: without terminal operator use Diabetes mellitus complication status: without complication Qualified Code(s): E11.9 - Type 2 diabetes mellitus without complications (8) Diastolic CHF, chronic Priority: Secondary Status: Chronic (9) Hypertension Priority: Secondary Status: Chronic Qualifiers: Hypertension type: essential hypertension Qualified Code(s): I10 - Essential (primary) hypertension (10) Morbid obesity Priority: Secondary Status: Chronic (11) Polysubstance abuse Priority: Primary Status: Chronic (12) Tobacco abuse Priority: Secondary Status: Chronic Hospital course: Mr. Adams is a 48 year old male who presented on 10/14/18 to [facility] ED for "psychiatric symptoms". He was admitted to [facility] same day. Patient has a PMH of alcohol abuse, polysubstance abuse, tobacco abuse, obesity, htn, hep c, IV drug use, hx of DT's, diastolic CHF and DM II. Mr. Adams came to the ED for reason of "bad cold and hearing voices". He reported that his last drink was the day before. In the ED, he reported visual and auditory hallucinations w/ associated symptoms of sucideal ideation without plan, headache, abdominal cramping, nausea, diarrhea, diaphoresis, dry mouth, tremors, and decreased appetite that started over the past couple of days. He also reported in the past few days he had also developed a cough, chest tightness, dry heaves and vomited "yellow-foam" 3-4 times. His vitals on admission were afebrile, HR 113, RR 19, BP 198/106. Labs on admission were PT 15.6, INR 1.4, total bilirubin 5.6, AST 860, ALT >500, ammonia 73, alkaline phosphatase 151. Of note, patient was started on Lactulose and CIWA protocol w/ ativan. Abdomen/pelvis CT showed mild pericholecystic inflammation questionable for acute cholecystitis. RUQ U/S showed the gallbladder to be contracted w/ thickened, edematous rdz and pericholecystic fluid. General surgery was consulted and recommended no acute surgery. Gastrointestinal was consulted regarding active hep A and B and started lactulose. Throughout hospital stay, patients liver enzymes and ammonia continued to de ryan. INR and PT stabilized by discharge. Patient was pink slipped for sucideal ideation. [place] slip d/c following psych consult. Zachary found patient low risk for suicide and recommends outpatient psychiatry and counseling. Patients blood pressure throughout stay was not at goal but stable. Patient is being discharged after a 8 day [facility] hospital stay. Discharge discussed with: patient, nurse, internal control consultant - Time Spent with Patient Total time spent providing and/or coordinating discharge services: - Discharge Medications Prescriptions: OxyCODONE Immed Rel [Roxicodone 5 MG] 5 mg PO Q6HR PRN 2 Days #5 tablet PRN Reason: Severe Pain amLODIPine [Norvasc] 10 mg PO DAILY #30 tablet Atenolol [Tenormin] 50 mg PO DAILY #60 tablet Folic Acid 1 mg PO DAILY #30 tablet Gabapentin [Neurontin] 300 mg PO BID #60 capsule hydrOXYzine pamoate [Hydroxyzine Pamoate] 25 mg PO TID PRN #90 capsule PRN Reason: Anxiety Lactulose 10 gm PO BID #30 udc Lidocaine Patch [Lidoderm 5% patch] 1 each TP DAILY PRN #30 adh..patch PRN Reason: mild back pain Lisinopril [Zestril] 10 mg PO DAILY #30 tablet Mirtazapine 7.5 mg PO HS #30 tablet Nicotine Patch [Nicoderm] 14 mg TD DAILY #30 patch.td24 Omeprazole [PriLOSEC] 20 mg PO BIDAC #60 capsule. Thiamine (B-1) [Vitamin B-1] 100 mg PO DAILY #30 tablet Home Medications: Buprenorphine HCl/Naloxone HCl [Buprenorphin-Naloxon 8-2 mg Sl] 10/14/18 [History] Atenolol [Tenormin] 50 mg PO DAILY #60 tablet 10/22/18 [Rx] Folic Acid 1 mg PO DAILY #30 tablet 10/22/18 [Rx] Gabapentin [Neurontin] 300 mg PO BID #60 capsule 10/22/18 [Rx] Lactulose 10 gm PO BID #30 udc 10/22/18 [Rx] Lidocaine Patch [Lidoderm 5% patch] 1 each TP DAILY PRN #30 adh..patch 10/22/18 [Rx] Lisinopril [Zestril] 10 mg PO DAILY #30 tablet 10/22/18 [Rx] Mirtazapine 7.5 mg PO HS #30 tablet 10/22/18 [Rx] Nicotine Patch [Nicoderm] 14 mg TD DAILY #30 patch.td24 10/22/18 [Rx] Omeprazole [PriLOSEC] 20 mg PO BIDAC #60 capsule. 10/22/18 [Rx] OxyCODONE Immed Rel [Roxicodone 5 MG] 5 mg PO Q6HR PRN 2 Days #5 tablet 10/22/18 [Rx] Thiamine (B-1) [Vitamin B-1] 100 mg PO DAILY #30 tablet 10/22/18 [Rx] Vitamin B Complex/Vit C/Vit E [Stresstab] 1 each PO DAILY tablet 10/22/18 [Rx] amLODIPine [Norvasc] 10 mg PO DAILY #30 tablet 10/22/18 [Rx] hydrOXYzine pamoate [Hydroxyzine Pamoate] 25 mg PO TID PRN #90 capsule 10/22/18 [Rx] Allergies/Adverse Reactions: Allergy/AdvReac Type Severity Reaction Status Date / Time Amoxicillin Allergy Hives Verified 10/14/18 03:02 Penicillins Allergy Hives Verified 10/14/18 03:02 quetiapine [From Seroquel] Allergy Hives Verified 10/14/18 03:02 chlordiazepoxide AdvReac Gastrointestinal Verified 10/14/18 03:02 [From Librium] Upset Date of admission: 10/14/18 13:27 Primary care physician: PCP NONE Consults: 10/14/18 09:16 Consult to Surgery [CONS] Stat Consulting Provider: [facility] Reason for Consult: acute cholecystitis, spoke with Dr. Garcia Call Completed: Yes 10/14/18 10:40 Consult to Radiological Equipment Specialist [CONS] Routine Reason for SW Consult: ETOH issues 10/18/18 22:09 Consult to Psychiatry [CONS] Routine Consulting Provider: Psychiatry [facility] Reason consult: [place] slip on chart Other reason and/or additional details: suicidal thoughts; active alcohol withdrawal [place] Slip initiated date and time: 10/18/18; 22:00 Time Notified: 22:11 Call Completed: Yes Discharging clinician: Davi Mendez - Constitutional Vitals: Temp Pulse Resp BP Pulse Ox 98.5 F 60 16 172/85 96 10/22/18 11:14 10/22/18 11:14 10/22/18 11:14 10/22/18 11:14 10/22/18 11:14 General appearance: Present: A&O X 3, no acute distress Exam: below. - Head Head exam: Present: atraumatic, normocephalic - ENT ENT exam: Present: mucous membranes moist, normal oropharynx - Neck Neck exam general surgery: Present: supple, trachea midline - Respiratory Respiratory exam: Present: CTAB - Cardiovascular Cardiovascular exam: Present: RRR, +S1, +S2 - GI/Abdominal GI/Abdominal exam: Present: normal bowel sounds, soft, no peritoneal signs - Extremities Exam Extremities exam: Absent: pedal edema, tenderness - Neurological Exam Neurological exam: Present: alert, normal gait, oriented X3 - Psychiatric Psychiatric exam: Present: normal affect, normal mood - Skin Skin exam: Absent: abrasion, rash - Patient Status Disposition: Home, Self-Care Condition: Fair Functional capacity at discharge: independent ambulation Overall status at discharge: patient is progressing back to baseline - Discharge Instructions Follow Up With: Joe Bell MD [Partnered Physician] - 10/28/18 9:45 am - Diet and Activity Activity: increase activity as tolerated Diet: diabetic diet <Davi Mendez - Last Filed: 10/22/18 19:32> Date of Encounter: 10/22/18 - Discharge Diagnosis (1) Hypertension Status: Chronic Qualifiers: Hypertension type: essential hypertension Qualified Code(s): I10 - Essential (primary) hypertension (2) Polysubstance abuse Status: Chronic (3) Tobacco abuse Status: Chronic (4) Alcohol dependence with withdrawal Status: Acute Qualifiers: Complication of substance-induced condition: with delirium Qualified Code(s): F10.231 - Alcohol dependence with withdrawal delirium (5) Suicidal ideation Priority: Secondary Status: Ruled-out (6) DM2 (diabetes mellitus, type 2) Status: Chronic Qualifiers: Diabetes mellitus senior living insulin use: without senior living use Diabetes mellitus complication status: without complication Qualified Code(s): E11.9 - Type 2 diabetes mellitus without complications (7) Diastolic CHF, chronic Status: Chronic (8) Hypomagnesemia Priority: Secondary Status: Resolved (9) Hepatitis A Status: Acute Qualifiers: Hepatic coma status: without hepatic coma Qualified Code(s): B15.9 - Hepatitis A without hepatic coma (10) Hepatitis B Status: Suspected Qualifiers: Viral hepatitis chronicity: acute Hepatic coma status: without hepatic coma Hepatitis delta agent presence: without delta-agent Qualified Code(s): B16.9 - Acute hepatitis B without delta-agent and without hepatic coma (11) Hypokalemia Priority: Secondary Status: Resolved (12) Hepatic encephalopathy Priority: Secondary Status: Resolved (13) Hepatitis C Status: Chronic Qualifiers: Viral hepatitis chronicity: unspecified Hepatic coma status: without hepatic coma Qualified Code(s): B19.20 - Unspecified viral hepatitis C without hepatic coma (14) BMI 40.0-44.9, adult Priority: Secondary Status: Chronic (15) Morbid obesity Status: Chronic Hospital course: Mr. Adams is a 48 year old male - Time Spent with Patient Total time spent providing and/or coordinating discharge services: 38min Date of admission: 10/14/18 13:27 Primary care physician: PCP NONE Consults: 10/14/18 09:16 Consult to Surgery [CONS] Stat Consulting Provider: Surgery [facility] Reason for Consult: acute cholecystitis, spoke with Dr. Garcia Call Completed: Yes 10/14/18 10:40 Consult to Radiological Equipment Specialist [CONS] Routine Reason for SW Consult: ETOH issues 10/18/18 22:09 Consult to Psychiatry [CONS] Routine Consulting Provider: Psychiatry [facility] Reason consult: [place] slip on chart Other reason and/or additional details: suicidal thoughts; active alcohol withdrawal [place] Slip initiated date and time: 10/18/18; 22:00 Time Notified: 22:11 Call Completed: Yes - Constitutional Vitals: Temp Pulse Resp BP Pulse Ox 98.5 F 60 16 172/85 96 10/22/18 11:14 10/22/18 11:14 10/22/18 11:14 10/22/18 11:14 10/22/18 11:14 General appearance: Present: A&O X 3 - Patient Status Functional capacity at discharge: independent ambulation Overall status at discharge: patient is progressing back to baseline - Diet and Activity Activity: increase activity as tolerated Diet: diabetic diet - Attending Attestation The history, physical exam, and medical decision making was performed by the medical student either while I was physically present and actively involved or I personally re-performed the exam and medical decision making. I have verified the accuracy of the medical student's documentation with regards to the history, physical exam findings, and medical decision making on 10/22/18. Mr Adams has been admitted for acute ETOH withdrawal as well as acute hep B and Hep A. He has steadily improved with his liver function. He has some encephalopathy and has been on lactulose. He is now afebrile and ready for discharge. Exam alert Comfortable Mucus membranes dry Normocephalic Neck supple Heart reg and not tachy No wheeze abd soft and slightly tender RUQ area No edema Pulses palpable Plan D/C home today Counseled alcohol and tobacco cessation Follow up with PCP Given #5 oxy IR for pain in abdomen from hepatitis
== END 2018-10-22 15:52 | disposition home or self-care (01) | DRG 896 ==
LOC: 3ANU 03:01 → EMEROOARM 03:01 → SUATTDRO 09:57 → 3ANU 10:38 → SUATTDRO 13:27 → 3ANU 19:38
PROVIDERS: ADMIT Internal Medicine; ATTEND Internal Medicine

== ENCOUNTER 2019-02-03 15:51 | Inpatient (IN) ==
[2019-02-03] MEDS ORDERED: 0.9 % Sodium Chloride 1,000 ML IVC ONE (16:12)
[2019-02-03] MEDS ORDERED: Folic Acid 1 MG in D5% in Water 50 ML IVPB ONE (16:12)
[2019-02-03] MEDS ORDERED: Thiamine (B-1) 200 MG/2 ML VIAL IM ONE (16:12)
[2019-02-03] MEDS ORDERED: *HR* LORazepam 2 MG/ML VIAL IVP PRN (16:15)
--- NOTE | 2019-02-03 16:42 | Emergency Department Note ---
Disposition Clinical Impression: Hypophosphatemia, Hypokalemia Alcohol withdrawal Qualifiers: Complication of substance-induced condition: with delirium Qualified Code(s): F10.231 - Alcohol dependence with withdrawal delirium Disposition: Admitted As Inpatient Time of Disposition: 18:40 Alcohol HPI - General Chief Complaint: ED Alcohol Abuse Stated Complaint: Alcohol withdraw Time Seen by Provider: 02/03/19 16:17 Source: patient Mode of arrival: ambulatory Limitations: no limitations Nursing Notes Reviewed: Yes Vital Signs Reviewed: Yes - History of Present Illness HPI Narrative: Patient presenting for evaluation of alcohol withdrawal. Patient states that he has previously gone through alcohol withdrawal. Patient states that he was clean for approximately 70 days. Started drinking again approximately one month ago. Patient has been drinking a 24 pack daily. Last drink was on Friday. Patient overall symptoms started last night with nausea vomiting and paresthesias to the skin. Patient states that he started to have some visual hallucinations that he needed to come to the emergency department. Patient does have a history of Percocet as well as Valium abuse. Patient states that he was taking Percocets and as he has been coming off his alcohol has been tight trying to self treat with Valium. During the patient's previous alcohol withdrawal he did undergo seizures. Patient will undergo further evaluation with CIWA score and CIWA treatment. Patient describes chest pain in center of his chest which she believes is secondary to withdrawal. Patient states that he has had some underlying anxiety and has had some intermittent shortness of breath. Patient has had what he describes as fever sweating episodes without objective temperature, intermittent visual and auditory hallucinations, tactile hallucinations. The patient is mildly tachycardic. Chart does show concern for significant underlying disease including hepatitis A, B, C, DM, CHF. - Related Data Home Medications Medication Instructions Recorded Confirmed Buprenorphine HCl/Naloxone HCl 10/14/18 [Buprenorphin-Naloxon 8-2 mg Sl] Previous Rx's Medication Instructions Recorded Atenolol [Tenormin] 50 mg PO DAILY #60 tablet 10/22/18 Folic Acid 1 mg PO DAILY #30 tablet 10/22/18 Gabapentin [Neurontin] 300 mg PO BID #60 capsule 10/22/18 Lactulose 10 gm PO BID #30 udc 10/22/18 Lidocaine Patch [Lidoderm 5% patch] 1 each TP DAILY PRN #30 adh..patch 10/22/18 Lisinopril [Zestril] 10 mg PO DAILY #30 tablet 10/22/18 Mirtazapine 7.5 mg PO HS #30 tablet 10/22/18 Nicotine Patch [Nicoderm] 14 mg TD DAILY #30 patch.td24 10/22/18 Omeprazole [PriLOSEC] 20 mg PO BIDAC #60 capsule. 10/22/18 Thiamine (B-1) [Vitamin B-1] 100 mg PO DAILY #30 tablet 10/22/18 Vitamin B Complex/Vit C/Vit E 1 each PO DAILY tablet 10/22/18 [Stresstab] amLODIPine [Norvasc] 10 mg PO DAILY #30 tablet 10/22/18 hydrOXYzine pamoate [Hydroxyzine 25 mg PO TID PRN #90 capsule 10/22/18 Pamoate] Ketorolac [Toradol] 10 mg PO Q6HR PRN #20 tablet 12/18/18 Allergies Allergy/AdvReac Type Severity Reaction Status Date / Time Amoxicillin Allergy Hives Verified 12/18/18 08:20 Penicillins Allergy Hives Verified 12/18/18 08:20 quetiapine [From Seroquel] Allergy Hives Verified 12/18/18 08:20 chlordiazepoxide AdvReac Severe Hives Verified 02/04/19 03:53 [From Librium] All systems ED: reviewed and negative except as stated. Review of Systems: As Per HPI Constitutional: Reports: other (diaphoresis). Denies: fever, chills Cardiovascular: Reports: chest pain. Denies: palpitations Respiratory: Denies: cough, dyspnea Gastrointestinal: Reports: abdominal pain, nausea Integumentary: Denies: rash, abrasion Endocrine: Reports: fatigue Past Medical History - Past Medical History Medical history: Reports: diabetes, hypertension Surgical history: Reports: no surgical history Psychiatric history: Reports: anxiety, PTSD, other - Social History Smoking Status: Current every day smoker Smokeless Tobacco Status: No Alcohol use: Reports: heavy, recent Drug use: Reports: opiates, marijuana, methamphetamine, IV Drug Use, prescription drug abuse Physical Exam General: mildly diaphoretic Head: Normocephalic Atraumatic Eyes: PERRL, EOMI ENT: Airway patent, no stridor Neck: supple, no meningismus Chest: Lungs clear to auscultation bilateral Cardiac: Regular rhythm; tachycardia Abdomen: soft, nontender, nondistended; no guarding, rebound, or tenderness to percussion Musculoskeletal: Calves symmetric, nontender. Skin: No rash, normal skin tone. Neuro: Alert and Oriented to person, place, and time; No focal deficit. Course - Reevaluation(s) Reevaluation #1: Patient has had some improvement with symptoms. Patient's potassium and phosphate low. Patient has remained stable in the emergency department and will need to continue to undergo CIWA protocol. Patient is accepted by the hospitalist service. Vital Signs Temperature 98.1 F 02/03/19 15:57 Pulse Rate 110 02/03/19 15:57 Respiratory Rate 26 02/03/19 15:57 Blood Pressure 165/111 02/03/19 15:57 O2 Sat by Pulse Oximetry 97 02/03/19 15:57 Temperature 98.2 F 02/04/19 11:29 Pulse Rate 66 02/04/19 11:29 Respiratory Rate 24 02/04/19 11:29 Blood Pressure 146/89 02/04/19 11:29 O2 Sat by Pulse Oximetry 97 02/04/19 06:45 Oxygen Delivery Oxygen Delivery Room Air Alcohol - Lab Data Result diagrams: 02/04/19 09:14 02/04/19 09:14 Lab Results 02/03/19 02/03/19 02/03/19 Range/Units 16:28 16:28 16:33 WBC 8.3 (4.3-11.1) K/mcL RBC 4.70 (4.19-5.50) M/mcL Hgb 14.6 (12.9-16.9) g/dL Hct 41.8 (37.5-50.1) % MCV 88.9 (83.0-100.0) fL MCH 31.1 (28.0-33.3) pg MCHC 34.9 (31.6-35.5) g/dL RDW 13.1 (11.5-14.5) % Plt Count 202 (140-400) K/mcL MPV 10.0 (9.4-12.4) fL Immature Gran % 0.4 (0-4) % Seg Neutrophils % 63.5 % Lymphocytes % 27.0 % Monocytes % 6.8 % Eosinophils % 1.6 % Basophils % 0.7 % Neutrophils # 5.3 (1.6-8.9) K/mcL Lymphocytes # 2.3 (0.6-4.6) K/mcL Monocytes # 0.6 (0.0-1.3) K/mcL Eosinophils # 0.1 (0.0-0.6) K/mcL Basophils # 0.1 (0.0-0.2) K/mcL Sodium (136-145) mEq/L Potassium (3.5-5.1) mEq/L Chloride (98-107) mEq/L Carbon Dioxide (23-29) mEq/L BUN (6-20) mg/dL Creatinine (0.70-1.30) mg/dL Est GFR ( Amer) (> 60) Est GFR (Non-Af Amer) (> 60) BUN/Creatinine Ratio (6-26) Glucose (70-105) mg/dL Calculated Osmolality (280-300) Calcium (8.6-10.3) mg/dL Phosphorus (2.7-4.5) mg/dL Magnesium (1.6-2.6) mg/dL Troponin I (< 0.04) ng/mL Lipase (11-82) Units/L Urine Color Yellow (Yellow) Urine Clarity Clear (Clear) Urine pH 7.0 (5.0-8.0) pH Units Ur Specific [place] 1.016 (1.010-1.025) Urine Protein Negative (Neg-Trace) mg/dL Urine Glucose (UA) 100 H (Normal) mg/dL Urine Ketones Negative (Negative) mg/dL Urine Blood Negative (Negative) Urine Nitrite Negative (Negative) Urine Bilirubin Negative (Negative) Urine Urobilinogen Normal (Normal) mg/dL Ur Leukocyte Esterase Negative (Negative) Salicylates (15.0-30.0) mg/dL Urine Opiates Screen Positive H (Pqqcwx=098) ng/mL Acetaminophen (10-20) mcg/mL Ur Barbiturates Screen Negative (Ihitcp=333) ng/mL Ur Phencyclidine Scrn Negative (Cutoff=25) ng/mL Ur Amphetamines Screen Negative (Wmidnv=6018) ng/mL U Benzodiazepines Scrn Positive H (Spanlz=121) ng/mL Urine Cocaine Screen Negative (Cutoff= 300) ng/mL U Marijuana (THC) Screen Positive H (Cutoff = 50) ng/mL Ur Drug Screen Interp See Below Ethyl Alcohol (Less than 10) mg/dL 02/03/19 02/03/19 Range/Units 16:33 16:33 WBC (4.3-11.1) K/mcL RBC (4.19-5.50) M/mcL Hgb (12.9-16.9) g/dL Hct (37.5-50.1) % MCV (83.0-100.0) fL MCH (28.0-33.3) pg MCHC (31.6-35.5) g/dL RDW (11.5-14.5) % Plt Count (140-400) K/mcL MPV (9.4-12.4) fL Immature Gran % (0-4) % Seg Neutrophils % % Lymphocytes % % Monocytes % % Eosinophils % % Basophils % % Neutrophils # (1.6-8.9) K/mcL Lymphocytes # (0.6-4.6) K/mcL Monocytes # (0.0-1.3) K/mcL Eosinophils # (0.0-0.6) K/mcL Basophils # (0.0-0.2) K/mcL Sodium 138 (136-145) mEq/L Potassium 2.8 L (3.5-5.1) mEq/L Chloride 103 (98-107) mEq/L Carbon Dioxide 26 (23-29) mEq/L BUN 8 (6-20) mg/dL Creatinine 0.67 L (0.70-1.30) mg/dL Est GFR ( Amer) > 60 (> 60) Est GFR (Non-Af Amer) > 60 (> 60) BUN/Creatinine Ratio 12 (6-26) Glucose 193 H (70-105) mg/dL Calculated Osmolality 290 (280-300) Calcium 9.1 (8.6-10.3) mg/dL Phosphorus 1.0 L* (2.7-4.5) mg/dL Magnesium 1.7 (1.6-2.6) mg/dL Troponin I < 0.03 (< 0.04) ng/mL Lipase 27 (11-82) Units/L Urine Color (Yellow) Urine Clarity (Clear) Urine pH (5.0-8.0) pH Units Ur Specific [place] (1.010-1.025) Urine Protein (Neg-Trace) mg/dL Urine Glucose (UA) (Normal) mg/dL Urine Ketones (Negative) mg/dL Urine Blood (Negative) Urine Nitrite (Negative) Urine Bilirubin (Negative) Urine Urobilinogen (Normal) mg/dL Ur Leukocyte Esterase (Negative) Salicylates < 2.5 L (15.0-30.0) mg/dL Urine Opiates Screen (Chcron=636) ng/mL Acetaminophen < 10 L (10-20) mcg/mL Ur Barbiturates Screen (Flqvxr=945) ng/mL Ur Phencyclidine Scrn (Cutoff=25) ng/mL Ur Amphetamines Screen (Svhvwb=7621) ng/mL U Benzodiazepines Scrn (Kakhlj=466) ng/mL Urine Cocaine Screen (Cutoff= 300) ng/mL U Marijuana (THC) Screen (Cutoff = 50) ng/mL Ur Drug Screen Interp Ethyl Alcohol 26 H (Less than 10) mg/dL
[2019-02-03 16:53] LABS: Bilirubin,Urine Negative (Negative); Blood,Urine Negative (Negative); Clarity,Urine Clear (Clear); Color,Urine Yellow (Yellow); Glucose,Urine (UA) 100 mg/dL (Normal); Ketones,Urine Negative (Negative); Leukocyte Esterase,Urine Negative (Negative); Nitrite,Urine Negative (Negative); Protein,Urine Negative (Neg-Trace); Specific Gravity,Urine 1.016 (1.010-1.025); Urobilinogen,Urine Normal (Normal)
[2019-02-03 16:58] LABS: Basophils # 0.1 K/mcL (0.0-0.2); Basophils % 0.7 %; Eosinophils # 0.1 K/mcL (0.0-0.6); Eosinophils % 1.6 %; Hematocrit 41.8 % (37.5-50.1); Hemoglobin 14.6 g/dL (12.9-16.9); Immature Granulocytes % 0.4 % (0-4); Lymphocytes # 2.3 K/mcL (0.6-4.6); Mean Corpuscular HGB Conc 34.9 g/dL (31.6-35.5); Mean Corpuscular Hemoglobin 31.1 pg (28.0-33.3); Mean Corpuscular Volume 88.9 fL (83.0-100.0); Monocytes # 0.6 K/mcL (0.0-1.3); Monocytes % 6.8 %; Neutrophils # 5.3 K/mcL (1.6-8.9); Platelet Count 202 K/mcL (140-400); Red Cell Distribution Width 13.1 % (11.5-14.5); Segmented Neutrophils % 63.5 %
[2019-02-03] MEDS ORDERED: Thiamine (B-1) 100 MG in D5% in Water 50 ML IVPB STA (17:13)
[2019-02-03 17:14] LABS: Acetaminophen < 10 mcg/mL (10-20); Salicylate < 2.5 mg/dL (15.0-30.0)
[2019-02-03 17:15] LABS: Amphetamine Screen,Urine Negative ng/mL (Cutoff=1000); Barbiturate Screen,Urine Negative ng/mL (Cutoff=200); Benzodiazepines Screen,Urine Positive ng/mL (Cutoff=200); Cannabinoid Screen,Urine Positive ng/mL (Cutoff = 50); Cocaine Screen,Urine Negative ng/mL (Cutoff= 300); Opiate Screen,Urine Positive ng/mL (Cutoff=300); Phencyclidine Screen,Urine Negative ng/mL (Cutoff=25)
[2019-02-03 17:24] LABS: BUN/Creatinine Ratio 12 (6-26); Blood Urea Nitrogen 8 mg/dL (6-20); Calcium 9.1 mg/dL (8.6-10.3); Carbon Dioxide 26 mEq/L (23-29); Chloride 103 mEq/L (98-107); Ethanol 26 mg/dL (Less than 10); Glucose 193 mg/dL (70-105); Lipase 27 Units/L (11-82); Magnesium 1.7 mg/dL (1.6-2.6); Osmolality,Calculated 290 (280-300); Potassium 2.8 mEq/L (3.5-5.1); Sodium 138 mEq/L (136-145); Troponin I < 0.03 ng/mL (< 0.04); eGFR For Non-African Americans > 60 (> 60)
[2019-02-03] MEDS ORDERED: Thiamine (B-1) 200 MG/2 ML VIAL IVPB ONE (17:25)
[2019-02-03] MEDS: *HR* LORazepam 2 MG/ML VIAL IVP PRN ×4 (17:49→23:27)
[2019-02-03] MEDS ORDERED: Potassium Phosphate 44 MEQ in 0.9 % Sodium Chloride 250 ML IVPB STA (19:05)
[2019-02-03] MEDS ORDERED: Naloxone 0.4 MG/ML INJ IVP PRN (22:05)
[2019-02-03] MEDS: 0.9 % Sodium Chloride 1,000 ML IVC SCH (23:25)
[2019-02-03] MEDS: Thiamine (B-1) 100 MG TABLET PO SCH (23:27)
[2019-02-03] MEDS: Nicotine 14 MG PATCH.TD24 TD SCH ×2 (23:27→23:31)
[2019-02-03] MEDS: Folic Acid 1 MG TABLET PO SCH (23:27)
[2019-02-03] MEDS: *HR* Heparin 5,000 UNIT/ML VIAL SQ SCH ×2 (23:27→23:30)
[2019-02-03] MEDS: Vitamin B Complex/Vit C/Vit E 1 EACH TABLET PO SCH (23:27)
[2019-02-04 00:06] LABS: BUN/Creatinine Ratio 10 (6-26); Blood Urea Nitrogen 7 mg/dL (6-20); Calcium 8.6 mg/dL (8.6-10.3); Carbon Dioxide 31 mEq/L (23-29); Chloride 102 mEq/L (98-107); Glucose 164 mg/dL (70-105); Magnesium 1.6 mg/dL (1.6-2.6); Osmolality,Calculated 288 (280-300); Phosphorous 2.5 mg/dL (2.7-4.5); Potassium 3.2 mEq/L (3.5-5.1); Sodium 138 mEq/L (136-145); eGFR For Non-African Americans > 60 (> 60)
--- NOTE | 2019-02-04 00:06 | Internal Med History&Physical ---
Date of Encounter: 02/04/19 Time of Encounter: 20:43 Internal Medicine - H&P: HPI Chief complaint: alcohol withdrawal; hallucinations Admitted From: Emergency Dept Plans for Post Hospital Care: Home History of present illness: Mr. Adams is a 48 year old male who presents to the ER with complaints of nausea, vomiting, shakes, jitters, auditory and visual hallucinations. Symptoms started over the last 24 hours. He states they started shortly after he abruptly stopped drinking alcohol. He is a chronic alcohol abuser and had been sober for almost 3 months until he started drinking again about a month and a half ago. He made a decision to quit drinking alcohol again and stopped abruptly roughly 2 1/2 days ago. He also abuses opiates, which he buys on the street. He occasionally uses heroin as well. His last use of opiates was yesterday. In the ER, he was given multiple doses of Ativan, which helped all eviate his symptoms. He is now somnolent but easily arousable, alert, and coherent. He admits to having hallucinations as recent as just a few hours ago. Upon my assessment of the patient, he is sleeping but easily arousable. He confirms the above history. He states he has gone through alcohol withdrawal multiple times in the past and has required ICU stay as well for treatment of withdrawal. He expressed wishes to quit drinking alcohol and abusing drugs. I explained to him the plan to keep him on Librium prophylactically and use Ativan on a PRN basis via the CIWA protocol. He voiced agreement and plan with my recommendations. However, upon arrival to the nursing floor, I was informed by his nurse that he has allergic reaction to Librium. When I asked him earlier and inquired about his drug allergies, he informed me that he had no drug allergies. He tolerated Ativan without any problems in the ER. I therefore decided to stop the Librium and place him on Klonopin prophylactically while using Ativan on a PRN basis. My concern is that he will likely need further intervention for his alcohol withdrawal symptoms. Past Med Surg Social Fam HX - Past Medical History Attestation: Yes The following information was validated with the patient. Source: patient, old records reviewed Medical history: hypertension Additional medical history: Cellulitis. alcohol and opiate abuse Psychiatric history: anxiety, PTSD, other - Past Surgical History Surgical History: other Additional surgical history: I&D abscess - Social History Smoking Status: Current every day smoker Packs per day: 1 Smokeless Tobacco Status: No Alcohol use: heavy, recent Drug use: opiates, marijuana, methamphetamine, IV Drug Use, prescription drug abuse Current living situation: Home - Independent Activity Level: Independent ambulation Recent Out of Country Travel Within the Last 8 Weeks: No - Family History Father History Unknown: Yes Adopted: No Family Member Ethnicity: Non- Living Status: Hx Family Cardiac Disorders: Yes ([place] in 50s) Mother History Unknown: Yes Family Member Ethnicity: Non- Living Status: Hx Family Cardiac Disorders: Yes ([place] in 50s) Hx Family Cancer: Yes (Cancer) Hx Family Endocrine Disorder: Yes (Diabetes) Internal Medicine - H&P: Meds Buprenorphine HCl/Naloxone HCl [Buprenorphin-Naloxon 8-2 mg Sl] 10/14/18 [History] Atenolol [Tenormin] 50 mg PO DAILY #60 tablet 10/22/18 [Rx] Folic Acid 1 mg PO DAILY #30 tablet 10/22/18 [Rx] Gabapentin [Neurontin] 300 mg PO BID #60 capsule 10/22/18 [Rx] Lactulose 10 gm PO BID #30 udc 10/22/18 [Rx] Lidocaine Patch [Lidoderm 5% patch] 1 each TP DAILY PRN #30 adh..patch 10/22/18 [Rx] Lisinopril [Zestril] 10 mg PO DAILY #30 tablet 10/22/18 [Rx] Mirtazapine 7.5 mg PO HS #30 tablet 10/22/18 [Rx] Nicotine Patch [Nicoderm] 14 mg TD DAILY #30 patch.td24 10/22/18 [Rx] Omeprazole [PriLOSEC] 20 mg PO BIDAC #60 capsule.dr 10/22/18 [Rx] Thiamine (B-1) [Vitamin B-1] 100 mg PO DAILY #30 tablet 10/22/18 [Rx] Vitamin B Complex/Vit C/Vit E [Stresstab] 1 each PO DAILY tablet 10/22/18 [Rx] amLODIPine [Norvasc] 10 mg PO DAILY #30 tablet 10/22/18 [Rx] hydrOXYzine pamoate [Hydroxyzine Pamoate] 25 mg PO TID PRN #90 capsule 10/22/18 [Rx] Ketorolac [Toradol] 10 mg PO Q6HR PRN #20 tablet 12/18/18 [Rx] Allergy/AdvReac Type Severity Reaction Status Date / Time Amoxicillin Allergy Hives Verified 12/18/18 08:20 Penicillins Allergy Hives Verified 12/18/18 08:20 quetiapine [From Seroquel] Allergy Hives Verified 12/18/18 08:20 chlordiazepoxide AdvReac Gastrointestinal Verified 12/18/18 08:20 [From Librium] Upset - Constitutional Constitutional: no chills, no fever(s), no night sweats - EENT Eyes: no blurry vision, no change in vision Ears: no ear pain, no tinnitus Nose, mouth and throat: no nasal congestion, no sinus pressure, no sore throat - Cardiovascular Cardiovascular ROS IM: no chest pain, no dyspnea - Respiratory Respiratory: no cough, no hemoptysis, no chest congestion - Gastrointestinal Gastrointestinal: diarrhea, nausea, vomiting, no abdominal pain, no hematemesis, no hematochezia, no melena - Genitourinary Genitourinary ROS male: no dysuria, no flank pain, no hematuria - Musculoskeletal Musculoskeletal ROS IM: no arthralgias, no back pain - Integumentary Integumentary IM: no rash, no jaundice - Neurological Neurological ROS: no dizziness, no focal weakness, no frequent falls, no headache(s) - Psychiatric Psychiatric: anxiety, auditory hallucinations, irritability, visual hallucinations - Endocrine Endocrine IM: no polydipsia, no polyuria - Allergic/Immunologic Allergic/Immunologic: no GI upset with certain foods - Constitutional Vitals: Temp Pulse Resp BP Pulse Ox 98.1 F 88 18 160/98 99 02/03/19 17:16 02/03/19 21:55 02/03/19 21:55 02/03/19 21:55 02/03/19 21:55 General appearance: Present: cooperative, A&O X 3, no acute distress, answers questions appropriately Exam: somnolent but easily arousable; alert and coherent - Head Head exam: Present: atraumatic, normal inspection - Eye Eye exam: Present: EOMI, PERRL. Absent: scleral icterus Pupils: Present: normal accommodation - ENT ENT exam: Present: mucous membranes dry, normal exam, normal oropharynx - Neck Neck exam general surgery: Present: full ROM, supple, trachea midline. Absent: tenderness, nuchal rigidity, thyromegaly - Respiratory Respiratory exam: Present: CTAB. Absent: chest wall tenderness, rales, respira tory distress, rhonchi, wheezes - Cardiovascular Cardiovascular exam: Present: distant heart sounds, RRR, +S1, +S2. Absent: diastolic murmur, systolic murmur - GI/Abdominal GI/Abdominal exam: Present: normal bowel sounds, soft. Absent: guarding, hepatomegaly, mass, rebound, splenomegaly, tenderness - Extremities Exam Extremities exam: Present: full ROM, normal capillary refill, warm, radial pulses palpable and symmetrical. Absent: calf tenderness - Back Exam Back exam: Absent: CVA tenderness (L), CVA tenderness (R) - Neurological Exam Neurological exam: Present: alert, CN II-XII intact, oriented X3, no focal deficits, strengths equal and symetr throughout - Psychiatric Psychiatric exam: Present: anxious. Absent: homicidal ideation, suicidal ideation Additional comments: mildly anxious and tremulous; admits to recent hallucinations - Skin Skin exam: Present: dry, intact, warm Internal Med - H&P Results - Labs CBC & Chem 7: 02/03/19 16:33 02/03/19 23:10 Labs: Short CBC 02/03/19 Range/Units 16:33 WBC 8.3 (4.3-11.1) K/mcL Hgb 14.6 (12.9-16.9) g/dL Hct 41.8 (37.5-50.1) % Plt Count 202 (140-400) K/mcL Neutrophils # 5.3 (1.6-8.9) K/mcL BMP 02/03/19 16:33 Sodium 138 Potassium 2.8 L Chloride 103 Carbon Dioxide 26 BUN 8 Creatinine 0.67 L Glucose 193 H Calcium 9.1 Cardiac Enzymes 02/03/19 Range/Units 16:33 Troponin I < 0.03 (< 0.04) ng/mL Urine 02/03/19 Range/Units 16:28 Urine Color Yellow (Yellow) Urine Clarity Clear (Clear) Urine pH 7.0 (5.0-8.0) pH Units Ur Specific [place] 1.016 (1.010-1.025) Urine Protein Negative (Neg-Trace) mg/dL Urine Glucose (UA) 100 H (Normal) mg/dL - Impressions ITS Impressions Chest X-Ray 02/03/19 16:12 IMPRESSION: No focal airspace consolidation or edema. D/ / Nancy Childs MD / Nancy Childs MD Interpreting Provider: Nancy Childs MD - Diagnostic Studies Chest x-ray Status: image reviewed by me (negative) - Assessment and Plan (1) Alcohol withdrawal Current Visit: Yes Status: Acute Assessment and plan: 1. CIWA protocl ordered. 2. Klonopin scheduled as well for treatment of anxiety and withdrawal prophyla xis. 3. Monitor on telemetry. 4. He is currently in NSR; earlier reports from ER note that he was in atrial fibrillation. 5. If he fails above measures, he may require Precedex infusion. 6. [facility] for discharge planning and outpatient referrals. Qualifiers: Complication of substance-induced condition: with delirium Qualified Code(s ): F10.231 - Alcohol dependence with withdrawal delirium (2) Hallucinations Current Visit: Yes Status: Acute Assessment and plan: 1. Likely due to acute alcohol withdrawal. 2. Treat withdrawal as above. 3. May need more aggressive measures/Precedex infusion. 4. May need psychiatry consult if not responding to above. (3) Electrolyte abnormality Current Visit: Yes Status: Acute Assessment and plan: 1. Patient currently receiving potassium phosphate infusion as ordered ER. 2. Will trend electrolytes and monitor on telemetry. 3. Correct as needed. (4) DVT prophylaxis Current Visit: Yes Status: Acute Assessment and plan: . Heparin SQ.
[2019-02-04] MEDS: clonazePAM 1 MG TABLET PO SCH ×4 (00:19→23:19)
[2019-02-04] MEDS: *HR* LORazepam 2 MG/ML VIAL IVP PRN ×6 (00:19→21:23)
[2019-02-04] MEDS: Vitamin B Complex/Vit C/Vit E 1 EACH TABLET PO SCH (08:26)
[2019-02-04] MEDS: Nicotine 14 MG PATCH.TD24 TD SCH (08:27)
[2019-02-04] MEDS: Thiamine (B-1) 100 MG TABLET PO SCH (08:27)
[2019-02-04] MEDS: 0.9 % Sodium Chloride 1,000 ML IVC SCH ×2 (08:27→18:10)
[2019-02-04] MEDS: Folic Acid 1 MG TABLET PO SCH (08:27)
[2019-02-04] MEDS: *HR* Heparin 5,000 UNIT/ML VIAL SQ SCH ×2 (08:27→14:48)
--- NOTE | 2019-02-04 09:19 | Electrocardiograph Report ---
[place] [id number] Test Date: 2019-02-03 Pat Name: Chinedu Adams Department: [id number] Room: [facility] Gender: M High [employer] Boiler: : 1970 Requested By: Andrew Quiroga Order Number: [id number] Reading MD: Gregory Soriano Measurements Intervals [place] Rate: 95 P: 28 MI: 172 QRS: 65 QRSD: 102 T: 28 QT: 434 QTc: 546 Interpretive Statements Sinus rhythm Prolonged QT interval Electronically Signed On 02-04-2019 9:18:17 EDT by Gregory Soriano
[2019-02-04 09:55] LABS: Basophils # 0.1 K/mcL (0.0-0.2); Basophils % 0.9 %; Eosinophils # 0.3 K/mcL (0.0-0.6); Eosinophils % 3.5 %; Hematocrit 40.8 % (37.5-50.1); Immature Granulocytes % 0.4 % (0-4); Lymphocytes # 2.9 K/mcL (0.6-4.6); Lymphocytes % 37.3 %; Mean Corpuscular HGB Conc 34.3 g/dL (31.6-35.5); Mean Corpuscular Volume 90.3 fL (83.0-100.0); Monocytes # 0.5 K/mcL (0.0-1.3); Platelet Count 197 K/mcL (140-400); Red Blood Count 4.52 M/mcL (4.19-5.50); Red Cell Distribution Width 13.4 % (11.5-14.5); Segmented Neutrophils % 50.9 %
[2019-02-04 10:03] LABS: Prothrombin Time 11.7 Seconds (9.4-12.1)
--- NOTE | 2019-02-04 10:03 | Event Note ---
Date of Encounter: 02/04/19 Time of Encounter: 10:03
[2019-02-04 10:06] LABS: Activated Partial Thrombo Time 32.7 Seconds (26.0-36.0)
[2019-02-04 10:09] LABS: Alanine Aminotransferase 15 Units/L (7-52); Albumin 3.8 g/dL (3.5-5.7); Albumin/Globulin Ratio 1.1 (1.1-2.2); Alkaline Phosphatase 58 Units/L (34-104); Aspartate Amino Transferase 20 Units/L (13-39); BUN/Creatinine Ratio 10 (6-26); Bilirubin,Total 0.4 mg/dL (0.3-1.0); Blood Urea Nitrogen 6 mg/dL (6-20); Calcium 8.7 mg/dL (8.6-10.3); Carbon Dioxide 28 mEq/L (23-29); Chloride 105 mEq/L (98-107); Globulin 3.4 g/dL (2.4-3.5); Glucose 136 mg/dL (70-105); Magnesium 1.7 mg/dL (1.6-2.6); Osmolality,Calculated 288 (280-300); Phosphorous 3.1 mg/dL (2.7-4.5); Potassium 3.2 mEq/L (3.5-5.1); Sodium 139 mEq/L (136-145); Total Protein 7.2 g/dL (6.4-8.9); eGFR For Non-African Americans > 60 (> 60)
--- NOTE | 2019-02-04 10:43 | Internal Med Progress Note ---
Hospitalist Progress Note - Encounter Date of Encounter: 02/04/19 Time of Encounter: 10:41 - Subjective Interval History: Patient seen and examined this morning at bedside. No acute overnight events. Patient, and sleeping however aroused complains of feeling sweaty, clammy and having hallucination. Denies any chest pain complaints of palpitation. - Exam Vitals: Temp Pulse Resp BP Pulse Ox 97.9 F 76 16 148/99 97 02/04/19 06:45 02/04/19 06:45 02/04/19 06:45 02/04/19 06:45 02/04/19 06:45 Exam: Exam General: In no acute distress. mobid obesity Respiratory exam: CTAB. no accessory muscle use, rales, rhonchi, wheezes Cardiovascular exam: RRR, +S1, +S2. no murmur, gallop, rubs. GI/Abdominal exam: Non-tender, Non-distended, normal bowel sounds, soft, no peritoneal signs. Extremities exam: no pedal edema, pulses palpable in b/l lower extremities. no calf tenderness Neurological exam: somnolent, no focal deficits. No obejective signs of withdrawal Skin exam: No skin rash Pysch: admits to hallucination. denies suicidal ideation. - Assessment and Plan (1) DVT prophylaxis Current Visit: Yes Status: Acute (2) Alcohol withdrawal Current Visit: Yes Status: Acute (3) Hallucinations Current Visit: Yes Status: Acute (4) Electrolyte abnormality Current Visit: Yes Status: Acute - Summary of Assessment and Plan Summary of Assessment and Plan: Assessment Acute Alcohol withdrawal Hallucination Electrolyte abnormality dvt prophylaxis Chronic Morbid obesity HTN anxiety tobacco dependence Plan - C/w CIWA protocol with lorazepam and clonipin. No objective signs of withdrawal including tremors or tachycardia but subjectively c/o hallucination, sweating. Patient known to malinger in past to get controlled substance. Will gradually taper off and monitor as objectively as possible. - Replete electrolytes as needed - Nutritional suppport - heparin sc - Time Spent with Patient Total time spent is greater than 50% in coordination of care (as documented) at patient's floor/unit and/or counseling patient: Internal Medicine: Result - Labs CBC & Chem 7: 02/04/19 09:14 02/04/19 09:14 Labs: Short CBC 02/03/19 02/04/19 Range/Units 16:33 09:14 WBC 8.3 7.8 (4.3-11.1) K/mcL Hgb 14.6 14.0 (12.9-16.9) g/dL Hct 41.8 40.8 (37.5-50.1) % Plt Count 202 197 (140-400) K/mcL Neutrophils # 5.3 4.0 (1.6-8.9) K/mcL BMP 02/03/19 02/03/19 02/04/19 16:33 23:10 09:14 Sodium 138 138 139 Potassium 2.8 L 3.2 L 3.2 L Chloride 103 102 105 Carbon Dioxide 26 31 H 28 BUN 8 7 6 Creatinine 0.67 L 0.67 L 0.59 L Glucose 193 H 164 H 136 H Calcium 9.1 8.6 8.7 Cardiac Enzymes 02/03/19 02/03/19 02/04/19 Range/Units 16:33 23:10 09:14 Troponin I < 0.03 < 0.03 < 0.03 (< 0.04) ng/mL Liver Function 02/04/19 Range/Units 09:14 Total Bilirubin 0.4 (0.3-1.0) mg/dL AST 20 (13-39) Units/L ALT 15 (7-52) Units/L Alkaline Phosphatase 58 (34-104) Units/L Albumin 3.8 (3.5-5.7) g/dL Urine 02/03/19 Range/Units 16:28 Urine Color Yellow (Yellow) Urine Clarity Clear (Clear) Urine pH 7.0 (5.0-8.0) pH Units Ur Specific [place] 1.016 (1.010-1.025) Urine Protein Negative (Neg-Trace) mg/dL Urine Glucose (UA) 100 H (Normal) mg/dL - ABG Interpretation ABG results: PT/INR, D-dimer PT 11.7 Seconds (9.4-12.1) 02/04/19 09:14 - Impressions Impressions Chest X-Ray 02/03/19 16:12 IMPRESSION: No focal airspace consolidation or edema. D/ / Nancy Childs MD / Nancy Childs MD Interpreting Provider: Nancy Childs MD Consult Discharge Plan - Plan Referrals: NONE,PCP [Primary Care Provider] - (2) Alcohol withdrawal Qualifiers: Complication of substance-induced condition: with delirium Qualified Code(s): F10.231 - Alcohol dependence with withdrawal delirium
[2019-02-04] MEDS: Magnesium Oxide 400 MG TABLET PO SCH ×2 (11:24→23:20)
[2019-02-05] MEDS: *HR* LORazepam 2 MG/ML VIAL IVP PRN ×4 (00:05→22:05)
[2019-02-05] MEDS: *HR* Heparin 5,000 UNIT/ML VIAL SQ SCH ×4 (00:10→22:39)
--- NOTE | 2019-02-05 01:25 | Event Note ---
Date of Encounter: 02/05/19 Time of Encounter: 22:30 Notified of patient being agitated and not understanding his care plan. Came to assess and talk with patient. Patient was cursing at nurses as I stood outside the door stating that he was about to get angry enough to throw things and punch things. When I entered room patient said that he needed something to help him sleep and that he felt like no-one would listen to him and he was being lied to. He stated he had not been woken up for his ativan. Talked to patient repeatedly about how ativan dosage is dependent on how his active symptoms. When asked about pain patient denied any pain. He was sitting at the side of the bed with no tremors. Patient was calling the nurses liars with a loud tone and cursing and initially refused medications. As nurse was getting ready to leave the room patient asked to not have the nurse again and has to speak to me in private, asked me to close the door. I refuse to close the door but spoke with him, patient at that point said "I will smack that smirk right off her face if she comes in here again". [facility] assessment was done by the charge nurse and he was given 1 mg Ativan for breakthrough. Patient was made aware if he continued in a threatening manner that security would need to be called. There is concern for drug-seeking behavior in this patient as he was angry he was not awakened from sleep to get his Ativan and that he needed much more Ativan than what we are giving him because he is a "large paulette" he states that he takes 4 mg of Ativan at home although this is not in his chart. He states that he means something for sleep but when his home Remeron was offered and melatonin was offered he stated that these would not work on him because he is "a large paulette "and that he really needed a much larger dose of Ativan. Patient also states that he has not slept since he got here although he has been noted to be sleeping multiple times in the room. He states that he has been shaky and having tremors although when reaching for and holding his food he does not have tremors but when asked about tremors he will shake from head to toe. He was asked by myself if he had any pain and he denied it when the nurse came in to do the assessment he stated that he had a crushing headache that was 10 out of 10 pain.
[2019-02-05] MEDS ORDERED: Acetaminophen 325 MG TABLET PO PRN (03:04)
[2019-02-05] MEDS: 0.9 % Sodium Chloride 1,000 ML IVC SCH ×2 (05:00→15:01)
[2019-02-05] MEDS: Thiamine (B-1) 100 MG TABLET PO SCH (09:06)
[2019-02-05] MEDS: Vitamin B Complex/Vit C/Vit E 1 EACH TABLET PO SCH (09:06)
[2019-02-05] MEDS: clonazePAM 1 MG TABLET PO SCH ×3 (09:06→22:01)
[2019-02-05] MEDS: Magnesium Oxide 400 MG TABLET PO SCH ×2 (09:06→22:00)
[2019-02-05] MEDS: Nicotine 14 MG PATCH.TD24 TD SCH (09:07)
[2019-02-05] MEDS: Folic Acid 1 MG TABLET PO SCH (09:07)
[2019-02-05 12:48] LABS: BUN/Creatinine Ratio 18 (6-26); Blood Urea Nitrogen 10 mg/dL (6-20); Carbon Dioxide 28 mEq/L (23-29); Chloride 104 mEq/L (98-107); Glucose 162 mg/dL (70-105); Osmolality,Calculated 289 (280-300); Potassium 3.6 mEq/L (3.5-5.1); Sodium 138 mEq/L (136-145); eGFR For Non-African Americans > 60 (> 60)
--- NOTE | 2019-02-05 13:34 | Internal Med Progress Note ---
Hospitalist Progress Note - Encounter Date of Encounter: 02/05/19 Time of Encounter: 11:34 - Subjective Interval History: Patient seen and examined this morning at bedside. Overnight events noted. Patient sleeping this morning when I entered the room. When aroused patient starts shaking his hands. Complains of abdominal pain, back pain and feeling c lammy and not feeling well. Denies any other complain - Exam Vitals: Temp Pulse Resp BP Pulse Ox 98.3 F 78 19 156/80 92 02/05/19 11:37 02/05/19 11:37 02/05/19 11:37 02/05/19 11:37 02/05/19 11:37 Exam: Exam General: In no acute distress. mobid obesity Respiratory exam: CTAB. no accessory muscle use, rales, rhonchi, wheezes Cardiovascular exam: RRR, +S1, +S2. no murmur, gallop, rubs. GI/Abdominal exam: Non-tender, Non-distended, soft, no peritoneal signs. Extremities exam: no pedal edema, pulses palpable in b/l lower extremities. no calf tenderness Neurological exam: sleepy, no focal deficits. No objective signs of withdrawal. No tongue tremors. When asked to show hand and no tremors were visible however when has to stretch out he started shaking his hands. Pysch: admits to hallucination. denies suicidal ideation. - Assessment and Plan (1) DVT prophylaxis Current Visit: Yes Status: Acute (2) Alcohol withdrawal Current Visit: Yes Status: Acute (3) Hallucinations Current Visit: Yes Status: Acute (4) Electrolyte abnormality Current Visit: Yes Status: Acute - Summary of Assessment and Plan Summary of Assessment and Plan: Assessment Acute Alcohol withdrawal Hallucination Electrolyte abnormality dvt prophylaxis Chronic Morbid obesity HTN anxiety tobacco dependence Plan - Continues to complain of being sweaty, clammy and feeling withdrawal with hallucination. We will continue CIWA protocol with lorazepam and clonipin for one more day. - Replete electrolytes as needed however he refuses lab draw - Nutritional support - heparin sc - Time Spent with Patient Total time spent is greater than 50% in coordination of care (as documented) at patient's floor/unit and/or counseling patient: Internal Medicine: Result - Labs CBC & Chem 7: 02/04/19 09:14 02/05/19 11:59 Labs: BMP 02/05/19 11:59 Sodium 138 Potassium 3.6 Chloride 104 Carbon Dioxide 28 BUN 10 Creatinine 0.57 L Glucose 162 H Calcium 9.0 - ABG Interpretation ABG results: PT/INR, D-dimer PT 11.7 Seconds (9.4-12.1) 02/04/19 09:14 Consult Discharge Plan - Plan Referrals: NONE,PCP [Primary Care Provider] - (2) Alcohol withdrawal Qualifiers: Complication of substance-induced condition: with delirium Qualified Code(s): F10.231 - Alcohol dependence with withdrawal delirium
[2019-02-06] MEDS: 0.9 % Sodium Chloride 1,000 ML IVC SCH (01:07)
[2019-02-06] MEDS: *HR* LORazepam 2 MG/ML VIAL IVP PRN ×2 (01:50→05:55)
[2019-02-06 07:43] VITALS: BP 162/88
[2019-02-06] MEDS: Folic Acid 1 MG TABLET PO SCH (09:21)
[2019-02-06] MEDS: clonazePAM 1 MG TABLET PO SCH (09:21)
[2019-02-06] MEDS: Vitamin B Complex/Vit C/Vit E 1 EACH TABLET PO SCH (09:22)
[2019-02-06] MEDS: Thiamine (B-1) 100 MG TABLET PO SCH (09:22)
[2019-02-06] MEDS: Nicotine 14 MG PATCH.TD24 TD SCH (09:22)
[2019-02-06] MEDS: Magnesium Oxide 400 MG TABLET PO SCH (09:22)
[2019-02-06] MEDS: *HR* Heparin 5,000 UNIT/ML VIAL SQ SCH (09:23)
--- NOTE | 2019-02-06 11:37 | Discharge Summary ---
- NOTES TO OUTPATIENT PROVIDER Notes to Outpatient Provider: Patient will need close follow-up to assist him to quit alcohol abuse. Patient likely has sleep apnea/OHS and will need sleep study outpatient. Will need monitoring blood sugar, and follow-up for hepatitis as outpatient with teachers assistant. Orders not resulted at time of discharge: Pending orders 02/04/19 06:00 ECG 12 lead ECG [ECG] AM 0600 Date of Encounter: 02/06/19 Time of Encounter: 11:34 - Discharge Diagnosis (1) DVT prophylaxis Priority: Secondary Status: Acute (2) Alcohol withdrawal Priority: Primary Status: Acute Qualifiers: Complication of substance-induced condition: with delirium Qualified Code(s): F10.231 - Alcohol dependence with withdrawal delirium (3) Hallucinations Priority: Primary Status: Acute (4) Electrolyte abnormality Priority: Primary Status: Acute (5) Hypokalemia Priority: Primary Status: Acute (6) Hypophosphatemia Priority: Primary Status: Acute (7) Alcohol abuse Priority: Primary Status: Acute (8) Essential hypertension Priority: Secondary Status: Chronic (9) Morbid obesity with BMI of 50.0-59.9, adult Priority: Secondary Status: Chronic Hospital course: Mr. Adams is a 48 year old male with past medical history of hypertension, anxiety, diastolic CHF, hypertension, diabetes, morbid obesity, hepatitis B&C, alcohol and opiate abuse came with nausea vomiting and hallucinations. He was admitted for alcohol withdrawal. He was kept on ciwa protocol with clonidine and Ativan. Ativan dose was gradually tapered and patient was given nutritional support and IV fluids and electrolyte supplementation. Patient is stable and doing well. Does have high blood pressure and does not take any medication at home for blood pressure or diabetes. Last A1c relatively controlled. Discussed lifestyle changes. We will discharged on amlodipine to follow-up with outpatient for adjustments. Discussed about alcohol abuse and to get help to quit alcohol and follow-up with GI for hepatitis. Discharge discussed with: patient, nurse - Time Spent with Patient Total time spent providing and/or coordinating discharge services: Time spent: Greater than 30 minutes (35) - Discharge Medications Prescriptions: New amLODIPine [Norvasc] 5 mg PO DAILY 30 Days #30 tablet Home Medications: amLODIPine [Norvasc] 5 mg PO DAILY 30 Days #30 tablet 02/06/19 [Rx] Allergies/Adverse Reactions: Allergy/AdvReac Type Severity Reaction Status Date / Time Amoxicillin Allergy Hives Verified 12/18/18 08:20 Penicillins Allergy Hives Verified 12/18/18 08:20 quetiapine [From Seroquel] Allergy Hives Verified 12/18/18 08:20 chlordiazepoxide AdvReac Severe Hives Verified 02/04/19 03:53 [From Librium] Date of admission: 02/03/19 22:05 Primary care physician: PCP NONE Consults: 02/03/19 22:06 Consult to Wood Grinder Operator [CONS] Routine Reason for SW Consult: alcohol and drug rehab needs Discharging clinician: Gisela Keith - Constitutional Vitals: Temp Pulse Resp BP Pulse Ox 98.0 F 60 14 162/88 96 02/06/19 07:36 02/06/19 07:36 02/06/19 07:36 02/06/19 07:36 02/06/19 07:36 Exam: Exam General: In no acute distress. mobid obesity Respiratory exam: CTAB. no accessory muscle use, rales, rhonchi, wheezes Cardiovascular exam: RRR, +S1, +S2. no murmur, gallop, rubs. GI/Abdominal exam: Non-tender, Non-distended, soft, no peritoneal signs. Extremities exam: no pedal edema, pulses palpable in b/l lower extremities. no calf tenderness Neurological exam: sleepy, no focal deficits. No objective signs of withdrawal. No tongue tremors. Pysch: denies suicidal ideation. - Patient Status Disposition: Home, Self-Care - Discharge Instructions Follow Up With: NONE,PCP [Primary Care Provider] - - Diet and Activity Activity: increase activity as tolerated
== END 2019-02-06 11:57 | disposition home or self-care (01) | DRG 897 ==
LOC: EMEROOARM 15:51 → 2NENU 15:51 → SUATTDRO 22:05 → 2NENU 22:47
PROVIDERS: ADMIT Family Medicine; ATTEND Internal Medicine

== ENCOUNTER 2019-06-19 16:05 | Inpatient (IN) ==
[2019-06-19] MEDS ORDERED: *HR* LORazepam 2 MG/ML VIAL IVP ONE ×3 (16:51→19:45)
[2019-06-19] MEDS ORDERED: 0.9 % Sodium Chloride 1,000 ML IVC ONE (17:23)
[2019-06-19 17:36] LABS: Basophils # 0.1 K/mcL (0.0-0.2); Basophils % 0.6 %; Eosinophils # 0.1 K/mcL (0.0-0.6); Eosinophils % 1.5 %; Hematocrit 41.9 % (37.5-50.1); Hemoglobin 14.6 g/dL (12.9-16.9); Immature Granulocytes % 0.3 % (0-4); Lymphocytes # 1.8 K/mcL (0.6-4.6); Lymphocytes % 22.7 %; Mean Corpuscular HGB Conc 34.8 g/dL (31.6-35.5); Mean Corpuscular Hemoglobin 30.7 pg (28.0-33.3); Mean Platelet Volume 10.5 fL (9.4-12.4); Monocytes # 0.6 K/mcL (0.0-1.3); Monocytes % 7.2 %; Neutrophils # 5.4 K/mcL (1.6-8.9); Platelet Count 195 K/mcL (140-400); Red Blood Count 4.76 M/mcL (4.19-5.50); Red Cell Distribution Width 13.4 % (11.5-14.5); Segmented Neutrophils % 67.7 %; White Blood Count 7.9 K/mcL (4.3-11.1)
[2019-06-19 17:43] LABS: Bilirubin,Urine Negative (Negative); Blood,Urine Negative (Negative); Clarity,Urine Clear (Clear); Color,Urine Yellow (Yellow); Glucose,Urine (UA) 500 mg/dL (Normal); Ketones,Urine Negative (Negative); Leukocyte Esterase,Urine Negative (Negative); Nitrite,Urine Negative (Negative); Protein,Urine Trace mg/dL (Neg-Trace); Specific Gravity,Urine 1.024 (1.010-1.025); Urobilinogen,Urine Normal (Normal)
[2019-06-19 17:44] LABS: Albumin 4.3 g/dL (3.5-5.7); Albumin/Globulin Ratio 1.2 (1.1-2.2); Bilirubin,Direct 0.1 mg/dL (0.0-0.2); Bilirubin,Indirect 0.4 mg/dL (0.0-1.2); Bilirubin,Total 0.5 mg/dL (0.3-1.0); Globulin 3.6 g/dL (2.4-3.5); Total Protein 7.9 g/dL (6.4-8.9)
[2019-06-19 17:45] LABS: BUN/Creatinine Ratio 18 (6-26); Blood Urea Nitrogen 22 mg/dL (6-20); Calcium 9.5 mg/dL (8.6-10.3); Carbon Dioxide 26 mEq/L (23-29); Chloride 98 mEq/L (98-107); Ethanol 35 mg/dL (Less than 10); Glucose 186 mg/dL (70-105); Magnesium 1.6 mg/dL (1.6-2.6); Osmolality,Calculated 294 (280-300); Potassium 2.9 mEq/L (3.5-5.1); Prothrombin Time 11.7 Seconds (9.4-12.1); Sodium 138 mEq/L (136-145); eGFR For African Americans > 60 (> 60); eGFR For Non-African Americans > 60 (> 60)
[2019-06-19 17:55] LABS: Amphetamine Screen,Urine Negative ng/mL (Cutoff=1000); Barbiturate Screen,Urine Negative ng/mL (Cutoff=200); Benzodiazepines Screen,Urine Negative ng/mL (Cutoff=200); Cannabinoid Screen,Urine Positive ng/mL (Cutoff = 50); Cocaine Screen,Urine Negative ng/mL (Cutoff= 300); Opiate Screen,Urine Positive ng/mL (Cutoff=300); Phencyclidine Screen,Urine Negative ng/mL (Cutoff=25)
[2019-06-19] MEDS ORDERED: Potassium Chloride 40 MEQ, Lidocaine 1% 2 ML in 0.9 % Sodium Chloride 500 ML IVPB ONE (18:07)
[2019-06-19] MEDS ORDERED: Acetaminophen 325 MG TABLET PO PRN (19:28)
[2019-06-19] MEDS ORDERED: Ondansetron 4 MG/2 ML VIAL IVP PRN (19:28)
[2019-06-19] MEDS ORDERED: *HR* LORazepam 2 MG/ML VIAL IVP PRN (19:32)
[2019-06-19] MEDS ORDERED: *HR* Promethazine 25 MG/ML VIAL IVP PRN (19:32)
[2019-06-19] MEDS ORDERED: Haloperidol Lactate 5 MG/ML VIAL IVP ONE (20:00)
[2019-06-19] MEDS ORDERED: cloNIDine HCl 0.1 MG TABLET PO ONE (20:00)
[2019-06-19] MEDS: Ringers Solution, Lactated 1,000 ML IVC SCH (20:57)
[2019-06-20] MEDS: Ringers Solution, Lactated 1,000 ML IVC SCH (04:47)
[2019-06-20] MEDS: *HR* LORazepam 2 MG/ML VIAL IVP PRN ×3 (04:53→14:50)
[2019-06-20 05:44] LABS: BUN/Creatinine Ratio 18 (6-26); Blood Urea Nitrogen 17 mg/dL (6-20); Carbon Dioxide 30 mEq/L (23-29); Chloride 104 mEq/L (98-107); Glucose 136 mg/dL (70-105); Magnesium 1.6 mg/dL (1.6-2.6); Osmolality,Calculated 292 (280-300); Phosphorous 2.7 mg/dL (2.7-4.5); Potassium 3.1 mEq/L (3.5-5.1); Sodium 139 mEq/L (136-145); eGFR For African Americans > 60 (> 60); eGFR For Non-African Americans > 60 (> 60)
[2019-06-20] MEDS ORDERED: *HR* Heparin 5,000 UNIT/ML VIAL SQ SCH (06:00)
[2019-06-20] MEDS ORDERED: Potassium Chloride Elixir 20 MEQ/15 ML UDC PO ONE (06:20)
[2019-06-20] MEDS ORDERED: *HR* LORazepam 2 MG/ML VIAL IVP PRN (07:40)
[2019-06-20] MEDS ORDERED: Vitamin B Complex/Vit C/Vit E 1 EACH TABLET PO SCH (09:00)
[2019-06-20] MEDS ORDERED: Thiamine (B-1) 100 MG TABLET PO SCH (09:00)
[2019-06-20] MEDS ORDERED: amLODIPine 5 MG TABLET PO SCH (09:00)
[2019-06-20] MEDS ORDERED: Folic Acid 1 MG TABLET PO SCH (09:00)
[2019-06-20] MEDS ORDERED: Ketorolac 15 MG/ML VIAL IVP PRN (10:59)
[2019-06-20] MEDS ORDERED: Ketorolac 30 MG/ML VIAL IVP PRN (10:59)
[2019-06-20] MEDS ORDERED: Ringers Solution, Lactated 1,000 ML IVC SCH (11:00)
[2019-06-20 14:48] VITALS: BP 120/73
== END 2019-06-20 17:20 | disposition left against medical advice (07) | DRG 894 ==
LOC: EMEROOARM 16:05 → 3ANU 19:25 → SUATTDRO 19:25 → 3ANU 20:07
PROVIDERS: ADMIT Internal Medicine; ATTEND Internal Medicine

== ENCOUNTER 2019-10-23 14:43 | Inpatient (IN) ==
[2019-10-23] MEDS ORDERED: Ondansetron ODT 4 MG TAB.RAPDIS SL ONE (15:08)
[2019-10-23 15:39] LABS: Bilirubin,Urine Negative (Negative); Blood,Urine Negative (Negative); Clarity,Urine Clear (Clear); Color,Urine Yellow (Yellow); Glucose,Urine (UA) Normal (Normal); Ketones,Urine Negative (Negative); Leukocyte Esterase,Urine Negative (Negative); Nitrite,Urine Negative (Negative); PH,Urine 7.5 pH Units (5.0-8.0); Protein,Urine Negative (Neg-Trace); Specific Gravity,Urine 1.011 (1.010-1.025); Urobilinogen,Urine Normal (Normal)
[2019-10-23 15:55] LABS: Amphetamine Screen,Urine Negative ng/mL (Cutoff=1000); Barbiturate Screen,Urine Positive ng/mL (Cutoff=200); Benzodiazepines Screen,Urine Positive ng/mL (Cutoff=200); Cannabinoid Screen,Urine Positive ng/mL (Cutoff = 50); Cocaine Screen,Urine Negative ng/mL (Cutoff= 300); Opiate Screen,Urine Positive ng/mL (Cutoff=300); Phencyclidine Screen,Urine Negative ng/mL (Cutoff=25)
[2019-10-23 16:03] LABS: Basophils # 0.1 K/mcL (0.0-0.2); Basophils % 0.9 %; Eosinophils # 0.1 K/mcL (0.0-0.6); Eosinophils % 1.2 %; Hematocrit 42.8 % (37.5-50.1); Hemoglobin 15.2 g/dL (12.9-16.9); Immature Granulocytes % 0.4 % (0-4); Lymphocytes % 24.5 %; Mean Corpuscular HGB Conc 35.5 g/dL (31.6-35.5); Mean Corpuscular Hemoglobin 30.7 pg (28.0-33.3); Mean Corpuscular Volume 86.5 fL (83.0-100.0); Mean Platelet Volume 9.6 fL (9.4-12.4); Monocytes # 0.5 K/mcL (0.0-1.3); Monocytes % 6.7 %; Neutrophils # 5.3 K/mcL (1.6-8.9); Platelet Count 181 K/mcL (140-400); Red Blood Count 4.95 M/mcL (4.19-5.50); Segmented Neutrophils % 66.3 %
[2019-10-23 16:35] LABS: Acetaminophen < 10 mcg/mL (10-20); Ethanol < 10 mg/dL (Less than 10); Salicylate < 2.5 mg/dL (15.0-30.0)
[2019-10-23] MEDS ORDERED: *HR* LORazepam 2 MG/ML VIAL IVP PRN (16:40)
[2019-10-23 17:23] LABS: BUN/Creatinine Ratio 12 (6-26); Blood Urea Nitrogen 7 mg/dL (6-20); Calcium 9.5 mg/dL (8.6-10.3); Carbon Dioxide 29 mEq/L (23-29); Chloride 100 mEq/L (98-107); Chol/HDL Ratio 5.5 (0-4.9); Cholesterol 199 mg/dL (< 200); Glucose 120 mg/dL (70-105); HDL Cholesterol 36 mg/dL (40-59); LDL Cholesterol,Calculated 127 mg/dL (0-99); Osmolality,Calculated 283 (280-300); Potassium 3.7 mEq/L (3.5-5.1); Sodium 137 mEq/L (136-145); Triglycerides 182 mg/dL (< 150); eGFR For African Americans > 60 (> 60); eGFR For Non-African Americans > 60 (> 60)
[2019-10-23 18:11] LABS: Estimated Average Glucose 146 mg/dl
[2019-10-23] MEDS: *HR* LORazepam 2 MG/ML VIAL IVP PRN (18:22)
[2019-10-23] MEDS ORDERED: Naloxone 0.4 MG/ML INJ IVP PRN (19:37)
[2019-10-23] MEDS ORDERED: *HR* Dextrose 50 % in Water (Syg) 50 ML SYRINGE IVP PRN (20:03)
[2019-10-23] MEDS ORDERED: Dextrose Gel 15 GM/37.5 ML TUBE PO PRN ×2 (20:03)
[2019-10-23] MEDS ORDERED: D5% in Water 1,000 ML IVC PRN (20:03)
[2019-10-23] MEDS: *HR* Buprenorphine HCl 8 MG TAB.SUBL SL SCH (21:04)
[2019-10-23] MEDS: 0.9 % Sodium Chloride 1,000 ML IVC SCH (21:04)
[2019-10-23] MEDS: *HR* LORazepam 1 MG TABLET PO SCH (21:04)
[2019-10-23] MEDS: *HR* Heparin 5,000 UNIT/ML VIAL SQ SCH (21:10)
[2019-10-23] MEDS: Nicotine 14 MG PATCH.TD24 TD SCH (21:53)
[2019-10-24] MEDS: *HR* LORazepam 2 MG/ML VIAL IVP PRN ×4 (00:01→21:43)
[2019-10-24] MEDS: *HR* Heparin 5,000 UNIT/ML VIAL SQ SCH ×3 (05:07→19:24)
[2019-10-24] MEDS: 0.9 % Sodium Chloride 1,000 ML IVC SCH (05:09)
[2019-10-24 06:22] LABS: Basophils # 0.1 K/mcL (0.0-0.2); Basophils % 0.9 %; Eosinophils # 0.2 K/mcL (0.0-0.6); Eosinophils % 2.7 %; Hematocrit 40.1 % (37.5-50.1); Hemoglobin 14.1 g/dL (12.9-16.9); Immature Granulocytes % 0.3 % (0-4); Lymphocytes # 2.7 K/mcL (0.6-4.6); Lymphocytes % 41.9 %; Mean Corpuscular HGB Conc 35.2 g/dL (31.6-35.5); Mean Corpuscular Hemoglobin 30.6 pg (28.0-33.3); Mean Platelet Volume 9.5 fL (9.4-12.4); Monocytes # 0.6 K/mcL (0.0-1.3); Monocytes % 8.7 %; Neutrophils # 2.9 K/mcL (1.6-8.9); Platelet Count 175 K/mcL (140-400); Red Blood Count 4.61 M/mcL (4.19-5.50); Red Cell Distribution Width 13.2 % (11.5-14.5); Segmented Neutrophils % 45.5 %; White Blood Count 6.3 K/mcL (4.3-11.1)
[2019-10-24 06:26] LABS: INR 1.1
[2019-10-24 06:40] LABS: Albumin 3.6 g/dL (3.5-5.7); Albumin/Globulin Ratio 1.1 (1.1-2.2); Bilirubin,Direct 0.1 mg/dL (0.0-0.2); Bilirubin,Indirect 0.3 mg/dL (0.0-1.0); Bilirubin,Total 0.4 mg/dL (0.3-1.0); Globulin 3.3 g/dL (2.4-3.5); Total Protein 6.9 g/dL (6.4-8.9)
[2019-10-24 06:43] LABS: Alanine Aminotransferase 21 Units/L (7-52); Albumin 3.6 g/dL (3.5-5.7); Albumin/Globulin Ratio 1.1 (1.1-2.2); Alkaline Phosphatase 74 Units/L (34-104); Aspartate Amino Transferase 18 Units/L (13-39); BUN/Creatinine Ratio 15 (6-26); Bilirubin,Total 0.3 mg/dL (0.3-1.0); Blood Urea Nitrogen 10 mg/dL (6-20); Calcium 9.1 mg/dL (8.6-10.3); Carbon Dioxide 31 mEq/L (23-29); Chloride 100 mEq/L (98-107); Globulin 3.2 g/dL (2.4-3.5); Glucose 113 mg/dL (70-105); Magnesium 1.8 mg/dL (1.6-2.6); Osmolality,Calculated 286 (280-300); Potassium 3.3 mEq/L (3.5-5.1); Sodium 138 mEq/L (136-145); Total Protein 6.8 g/dL (6.4-8.9); eGFR For African Americans > 60 (> 60); eGFR For Non-African Americans > 60 (> 60)
[2019-10-24] MEDS: Thiamine (B-1) 100 MG TABLET PO SCH (07:27)
[2019-10-24] MEDS: *HR* LORazepam 1 MG TABLET PO SCH ×3 (07:27→20:18)
[2019-10-24] MEDS: *HR* Buprenorphine HCl 8 MG TAB.SUBL SL SCH ×2 (07:27→20:18)
[2019-10-24] MEDS: Nicotine 14 MG PATCH.TD24 TD SCH (07:29)
[2019-10-24] MEDS: Insulin LISPRO 300 UNITS/3 ML VIAL SQ SCH ×3 (11:05→16:30)
[2019-10-24] MEDS: Gabapentin 400 MG CAPSULE PO SCH ×2 (15:04→20:18)
[2019-10-25] MEDS ORDERED: Acetaminophen 325 MG TABLET PO ONE (01:07)
[2019-10-25] MEDS: *HR* LORazepam 2 MG/ML VIAL IVP PRN ×6 (01:44→21:14)
[2019-10-25 04:21] LABS: Hematocrit 42.8 % (37.5-50.1); Hemoglobin 14.3 g/dL (12.9-16.9); Mean Corpuscular HGB Conc 33.4 g/dL (31.6-35.5); Mean Corpuscular Hemoglobin 30.4 pg (28.0-33.3); Mean Corpuscular Volume 90.9 fL (83.0-100.0); Mean Platelet Volume 9.7 fL (9.4-12.4); Platelet Count 168 K/mcL (140-400); Red Blood Count 4.71 M/mcL (4.19-5.50); White Blood Count 6.6 K/mcL (4.3-11.1)
[2019-10-25 04:45] LABS: BUN/Creatinine Ratio 16 (6-26); Blood Urea Nitrogen 13 mg/dL (6-20); Calcium 8.9 mg/dL (8.6-10.3); Carbon Dioxide 30 mEq/L (23-29); Chloride 100 mEq/L (98-107); Glucose 154 mg/dL (70-105); Osmolality,Calculated 281 (280-300); Potassium 3.2 mEq/L (3.5-5.1); Sodium 134 mEq/L (136-145); eGFR For African Americans > 60 (> 60); eGFR For Non-African Americans > 60 (> 60)
[2019-10-25] MEDS: *HR* Heparin 5,000 UNIT/ML VIAL SQ SCH ×3 (05:40→19:51)
[2019-10-25] MEDS ORDERED: Potassium Chloride 40 MEQ, Lidocaine 1% 2 ML in 0.9 % Sodium Chloride 500 ML IVPB ONE (07:34)
[2019-10-25] MEDS: Thiamine (B-1) 100 MG TABLET PO SCH (08:15)
[2019-10-25] MEDS: Gabapentin 400 MG CAPSULE PO SCH ×3 (08:15→19:46)
[2019-10-25] MEDS: *HR* Buprenorphine HCl 8 MG TAB.SUBL SL SCH ×2 (08:15→19:46)
[2019-10-25] MEDS: Nicotine 14 MG PATCH.TD24 TD SCH (08:15)
[2019-10-25] MEDS: Insulin LISPRO 300 UNITS/3 ML VIAL SQ SCH ×3 (08:16→16:20)
[2019-10-25] MEDS: *HR* LORazepam 1 MG TABLET PO SCH ×3 (08:16→19:46)
[2019-10-25 17:57] LABS: BUN/Creatinine Ratio 17 (6-26); Blood Urea Nitrogen 15 mg/dL (6-20); Calcium 9.2 mg/dL (8.6-10.3); Carbon Dioxide 27 mEq/L (23-29); Chloride 101 mEq/L (98-107); Glucose 131 mg/dL (70-105); Osmolality,Calculated 285 (280-300); Potassium 3.4 mEq/L (3.5-5.1); Sodium 136 mEq/L (136-145); eGFR For African Americans > 60 (> 60); eGFR For Non-African Americans > 60 (> 60)
[2019-10-25] MEDS ORDERED: Potassium Chloride 20 MEQ, Lidocaine 1% 2 ML in 0.9 % Sodium Chloride 250 ML IVPB ONE (18:00)
[2019-10-25] MEDS ORDERED: Melatonin 3 MG TABLET PO PRN (20:13)
[2019-10-26] MEDS: *HR* LORazepam 2 MG/ML VIAL IVP PRN ×6 (00:20→21:36)
[2019-10-26] MEDS: cloNIDine HCl 0.1 MG TABLET PO PRN ×2 (01:14→23:19)
[2019-10-26 02:43] LABS: Hemoglobin 14.6 g/dL (12.9-16.9); Mean Corpuscular HGB Conc 34.8 g/dL (31.6-35.5); Mean Corpuscular Hemoglobin 30.4 pg (28.0-33.3); Mean Corpuscular Volume 87.5 fL (83.0-100.0); Mean Platelet Volume 9.8 fL (9.4-12.4); Platelet Count 194 K/mcL (140-400); White Blood Count 7.3 K/mcL (4.3-11.1)
[2019-10-26 03:00] LABS: BUN/Creatinine Ratio 22 (6-26); Blood Urea Nitrogen 20 mg/dL (6-20); Calcium 9.1 mg/dL (8.6-10.3); Carbon Dioxide 28 mEq/L (23-29); Chloride 100 mEq/L (98-107); Glucose 146 mg/dL (70-105); Osmolality,Calculated 291 (280-300); Potassium 3.6 mEq/L (3.5-5.1); Sodium 138 mEq/L (136-145); eGFR For African Americans > 60 (> 60); eGFR For Non-African Americans > 60 (> 60)
[2019-10-26] MEDS: *HR* Heparin 5,000 UNIT/ML VIAL SQ SCH ×3 (05:18→21:53)
[2019-10-26] MEDS: Gabapentin 400 MG CAPSULE PO SCH ×3 (08:08→19:43)
[2019-10-26] MEDS: Thiamine (B-1) 100 MG TABLET PO SCH (08:08)
[2019-10-26] MEDS: *HR* Buprenorphine HCl 8 MG TAB.SUBL SL SCH ×2 (08:08→19:43)
[2019-10-26] MEDS: Nicotine 14 MG PATCH.TD24 TD SCH (08:09)
[2019-10-26] MEDS: Insulin LISPRO 300 UNITS/3 ML VIAL SQ SCH ×3 (08:09→16:16)
[2019-10-27] MEDS ORDERED: cloNIDine HCl 0.1 MG TABLET PO ONE (00:48)
[2019-10-27] MEDS ORDERED: Acetaminophen 325 MG TABLET PO PRN (00:52)
[2019-10-27] MEDS: *HR* Heparin 5,000 UNIT/ML VIAL SQ SCH (03:52)
[2019-10-27 06:48] VITALS: BP 171/112
[2019-10-27] MEDS: *HR* LORazepam 2 MG/ML VIAL IVP PRN (06:48)
[2019-10-27] MEDS: Thiamine (B-1) 100 MG TABLET PO SCH (07:57)
[2019-10-27] MEDS: Nicotine 14 MG PATCH.TD24 TD SCH (07:57)
[2019-10-27] MEDS: *HR* Buprenorphine HCl 8 MG TAB.SUBL SL SCH (07:57)
[2019-10-27] MEDS: Gabapentin 400 MG CAPSULE PO SCH (07:57)
[2019-10-27] MEDS: Insulin LISPRO 300 UNITS/3 ML VIAL SQ SCH (07:59)
== END 2019-10-27 11:17 | disposition other institution (70) | DRG 897 ==
LOC: 3BNU 14:43 → EMEROOARM 14:43 → 3BNU 20:07
PROVIDERS: ADMIT Pharmacist; ATTEND Pharmacist

== ENCOUNTER 2020-06-02 20:52 | Observation (INO) ==
[2020-06-02] MEDS ORDERED: diazePAM 10 MG TABLET PO ONE (21:50)
[2020-06-02 22:17] LABS: Basophils % 0.3 %; Eosinophils % 0.2 %; Hematocrit 40.5 % (37.5-50.1); Hemoglobin 13.3 g/dL (12.9-16.9); Immature Granulocytes % 0.5 % (0-4); Lymphocytes # 1.3 K/mcL (0.6-4.6); Mean Corpuscular HGB Conc 32.8 g/dL (31.6-35.5); Mean Corpuscular Hemoglobin 29.4 pg (28.0-33.3); Mean Corpuscular Volume 89.4 fL (83.0-100.0); Mean Platelet Volume 9.6 fL (9.4-12.4); Monocytes # 0.8 K/mcL (0.0-1.3); Monocytes % 5.3 %; Neutrophils # 12.5 K/mcL (1.6-8.9); Platelet Count 223 K/mcL (140-400); Red Blood Count 4.53 M/mcL (4.19-5.50); Red Cell Distribution Width 13.9 % (11.5-14.5); Segmented Neutrophils % 84.7 %; White Blood Count 14.7 K/mcL (4.3-11.1)
[2020-06-02 22:31] LABS: Amphetamine Screen,Urine Negative ng/mL (Cutoff=1000); Barbiturate Screen,Urine Negative ng/mL (Cutoff=200); Benzodiazepines Screen,Urine Positive ng/mL (Cutoff=200); Cannabinoid Screen,Urine Positive ng/mL (Cutoff = 50); Cocaine Screen,Urine Negative ng/mL (Cutoff= 300); Opiate Screen,Urine Positive ng/mL (Cutoff=300); Phencyclidine Screen,Urine Negative ng/mL (Cutoff=25)
[2020-06-02 22:36] LABS: BUN/Creatinine Ratio 17 (6-26); Blood Urea Nitrogen 23 mg/dL (6-20); Calcium 9.5 mg/dL (8.6-10.3); Carbon Dioxide 25 mEq/L (23-29); Chloride 102 mEq/L (98-107); Ethanol < 10 mg/dL (Less than 10); Glucose 207 mg/dL (70-105); Osmolality,Calculated 296 (280-300); Potassium 3.4 mEq/L (3.5-5.1); Sodium 138 mEq/L (136-145); eGFR For African Americans > 60 (> 60); eGFR For Non-African Americans 57 (> 60)
[2020-06-02] MEDS ORDERED: 0.9 % Sodium Chloride 1,000 ML IVC ONE (22:56)
[2020-06-03] MEDS ORDERED: diazePAM 10 MG TABLET PO ONE (00:15)
[2020-06-03 00:18] LABS: Alanine Aminotransferase 32 Units/L (7-52); Albumin/Globulin Ratio 1.1 (1.1-2.2); Alkaline Phosphatase 81 Units/L (34-104); Aspartate Amino Transferase 33 Units/L (13-39); Bilirubin,Direct 0.1 mg/dL (0.0-0.2); Bilirubin,Indirect 0.2 mg/dL (0.0-1.0); Bilirubin,Total 0.3 mg/dL (0.3-1.0); Globulin 3.5 g/dL (2.4-3.5); Total Protein 7.5 g/dL (6.4-8.9)
[2020-06-03] MEDS ORDERED: *HR* Promethazine 25 MG/ML VIAL IVP PRN (02:23)
[2020-06-03] MEDS ORDERED: Acetaminophen 325 MG TABLET PO PRN (02:23)
[2020-06-03] MEDS ORDERED: Naloxone 0.4 MG/ML INJ IVP PRN (02:23)
[2020-06-03] MEDS ORDERED: D5% in Water 1,000 ML IVC PRN (03:32)
[2020-06-03] MEDS ORDERED: Dextrose Gel 15 GM/37.5 ML TUBE PO PRN ×2 (03:32)
[2020-06-03] MEDS ORDERED: *HR* Dextrose 50 % in Water (Vial) 50 ML VIAL IVP PRN (03:32)
[2020-06-03] MEDS: 0.9 % Sodium Chloride 1,000 ML IVC SCH ×2 (04:26→14:14)
[2020-06-03] MEDS: Insulin LISPRO 300 UNITS/3 ML VIAL SQ SCH ×4 (04:29→16:59)
[2020-06-03] MEDS: *HR* LORazepam 2 MG/ML VIAL IVP PRN ×2 (07:08→13:03)
[2020-06-03] MEDS ORDERED: Mag Hydrox/Al Hydrox/Simeth 30 ML UDC PO PRN (09:00)
[2020-06-03 09:14] LABS: Basophils # 0.1 K/mcL (0.0-0.2); Basophils % 0.5 %; Eosinophils # 0.2 K/mcL (0.0-0.6); Eosinophils % 1.9 %; Hematocrit 41.6 % (37.5-50.1); Hemoglobin 13.5 g/dL (12.9-16.9); Immature Granulocytes % 0.3 % (0-4); Lymphocytes # 2.6 K/mcL (0.6-4.6); Lymphocytes % 27.6 %; Mean Corpuscular HGB Conc 32.5 g/dL (31.6-35.5); Mean Corpuscular Hemoglobin 29.2 pg (28.0-33.3); Mean Platelet Volume 10.4 fL (9.4-12.4); Monocytes # 0.7 K/mcL (0.0-1.3); Monocytes % 7.2 %; Neutrophils # 5.8 K/mcL (1.6-8.9); Platelet Count 216 K/mcL (140-400); Red Blood Count 4.62 M/mcL (4.19-5.50); Segmented Neutrophils % 62.5 %; White Blood Count 9.3 K/mcL (4.3-11.1)
[2020-06-03 09:26] LABS: BUN/Creatinine Ratio 21 (6-26); Blood Urea Nitrogen 21 mg/dL (6-20); Calcium 9.3 mg/dL (8.6-10.3); Carbon Dioxide 28 mEq/L (23-29); Chloride 103 mEq/L (98-107); Glucose 90 mg/dL (70-105); Magnesium 1.6 mg/dL (1.6-2.6); Osmolality,Calculated 289 (280-300); Phosphorous 3.1 mg/dL (2.7-4.5); Potassium 3.8 mEq/L (3.5-5.1); Sodium 138 mEq/L (136-145); eGFR For African Americans > 60 (> 60); eGFR For Non-African Americans > 60 (> 60)
[2020-06-03 10:07] LABS: Bilirubin,Urine Negative (Negative); Blood,Urine Negative (Negative); Clarity,Urine Clear (Clear); Color,Urine Light-Yellow (Yellow); Glucose,Urine (UA) 50 mg/dL (Normal); Ketones,Urine Negative (Negative); Leukocyte Esterase,Urine Negative (Negative); Mucus,Urine Few per lpf (None-Few); Nitrite,Urine Negative (Negative); Protein,Urine Negative (Neg-Trace); RBC,Urine 0-3 per hpf (0-3); Specific Gravity,Urine 1.017 (1.010-1.025); Urobilinogen,Urine Normal (Normal); WBC,Urine 0-3 per hpf (0-3)
[2020-06-03] MEDS: amLODIPine 5 MG TABLET PO SCH (18:05)
[2020-06-03] MEDS: Thiamine (B-1) 100 MG, Folic Acid 1 MG, MVI, adult with vitamin K 10 ML in 0.9 % Sodi... IVPB SCH (18:06)
[2020-06-03] MEDS ORDERED: *HR* LORazepam 2 MG/ML VIAL IVP ONE (20:27)
[2020-06-04 07:21] LABS: Hematocrit 40.8 % (37.5-50.1); Hemoglobin 13.1 g/dL (12.9-16.9); Mean Corpuscular HGB Conc 32.1 g/dL (31.6-35.5); Mean Corpuscular Hemoglobin 28.7 pg (28.0-33.3); Mean Corpuscular Volume 89.3 fL (83.0-100.0); Mean Platelet Volume 10.2 fL (9.4-12.4); Platelet Count 177 K/mcL (140-400); Red Blood Count 4.57 M/mcL (4.19-5.50); Red Cell Distribution Width 13.8 % (11.5-14.5); White Blood Count 7.7 K/mcL (4.3-11.1)
[2020-06-04 08:33] LABS: BUN/Creatinine Ratio 19 (6-26); Blood Urea Nitrogen 16 mg/dL (6-20); Calcium 8.9 mg/dL (8.6-10.3); Carbon Dioxide 25 mEq/L (23-29); Chloride 105 mEq/L (98-107); Glucose 111 mg/dL (70-105); Osmolality,Calculated 286 (280-300); Sodium 137 mEq/L (136-145); eGFR For African Americans > 60 (> 60); eGFR For Non-African Americans > 60 (> 60)
[2020-06-04] MEDS: Insulin LISPRO 300 UNITS/3 ML VIAL SQ SCH ×3 (08:35→16:05)
[2020-06-04] MEDS: amLODIPine 5 MG TABLET PO SCH (08:42)
[2020-06-04] MEDS: *HR* LORazepam 2 MG/ML VIAL IVP PRN ×3 (08:48→19:25)
[2020-06-04] MEDS ORDERED: Nicotine 2 MG GUM BC PRN (09:06)
[2020-06-04] MEDS: Nicotine 21 MG PATCH.TD24 TD SCH (10:20)
[2020-06-04] MEDS ORDERED: *HR* Buprenorphine HCl 8 MG TAB.SUBL SL SCH (12:00)
[2020-06-04] MEDS ORDERED: traZODone 50 MG TABLET PO PRN (13:48)
[2020-06-04] MEDS: Thiamine (B-1) 100 MG, Folic Acid 1 MG, MVI, adult with vitamin K 10 ML in 0.9 % Sodi... IVPB SCH (16:07)
[2020-06-05] MEDS: *HR* LORazepam 2 MG/ML VIAL IVP PRN ×2 (01:17→09:56)
[2020-06-05] MEDS: Insulin LISPRO 300 UNITS/3 ML VIAL SQ SCH (08:30)
[2020-06-05] MEDS: Nicotine 21 MG PATCH.TD24 TD SCH (08:42)
[2020-06-05] MEDS ORDERED: amLODIPine 5 MG TABLET PO SCH (09:00)
[2020-06-05] MEDS ORDERED: BUPRENORPHINE HCL SL SCH (09:00)
[2020-06-05 10:56] VITALS: BP 148/82
== END 2020-06-05 13:27 | disposition home or self-care (01) ==
LOC: 3BNU 20:52 → EMEROOARM 20:52 → SUATTDRO 06-03 00:47 → 3BNU 06-03 00:49
PROVIDERS: ADMIT Student in an Organized Health Care Education/Training Program; ATTEND Nurse Practitioner Adult Health

== ENCOUNTER 2020-07-31 10:15 | Inpatient (IN) ==
[2020-07-31] MEDS ORDERED: *HR* LORazepam 2 MG/ML VIAL IVP ONE (11:06)
[2020-07-31] MEDS ORDERED: Isovue-370 500 ML BOTTLE IVP ONE (11:08)
[2020-07-31] MEDS: 0.9 % Sodium Chloride 1,000 ML IVC SCH ×3 (11:19→14:31)
[2020-07-31 11:30] LABS: Basophils % 0.4 %; Eosinophils # 0.2 K/mcL (0.0-0.6); Eosinophils % 2.6 %; Hematocrit 40.1 % (37.5-50.1); Hemoglobin 13.1 g/dL (12.9-16.9); Immature Granulocytes % 0.2 % (0-4); Lymphocytes # 1.9 K/mcL (0.6-4.6); Lymphocytes % 20.3 %; Mean Corpuscular HGB Conc 32.7 g/dL (31.6-35.5); Mean Corpuscular Hemoglobin 29.9 pg (28.0-33.3); Mean Corpuscular Volume 91.6 fL (83.0-100.0); Mean Platelet Volume 10.6 fL (9.4-12.4); Monocytes # 0.7 K/mcL (0.0-1.3); Monocytes % 7.1 %; Neutrophils # 6.5 K/mcL (1.6-8.9); Platelet Count 188 K/mcL (140-400); Red Blood Count 4.38 M/mcL (4.19-5.50); Red Cell Distribution Width 13.7 % (11.5-14.5); Segmented Neutrophils % 69.4 %; White Blood Count 9.4 K/mcL (4.3-11.1)
[2020-07-31 11:52] LABS: Alanine Aminotransferase 46 Units/L (7-52); Albumin 3.8 g/dL (3.5-5.7); Albumin/Globulin Ratio 1.1 (1.1-2.2); Alkaline Phosphatase 90 Units/L (34-104); Aspartate Amino Transferase 43 Units/L (13-39); BUN/Creatinine Ratio 22 (6-26); Bilirubin,Direct 0.1 mg/dL (0.0-0.2); Bilirubin,Indirect 0.2 mg/dL (0.0-1.0); Bilirubin,Total 0.3 mg/dL (0.3-1.0); Blood Urea Nitrogen 24 mg/dL (6-20); Calcium 9.3 mg/dL (8.6-10.3); Carbon Dioxide 32 mEq/L (23-29); Chloride 99 mEq/L (98-107); Ethanol < 10 mg/dL (Less than 10); Globulin 3.5 g/dL (2.4-3.5); Glucose 192 mg/dL (70-105); Osmolality,Calculated 291 (280-300); Potassium 2.9 mEq/L (3.5-5.1); Sodium 136 mEq/L (136-145); Total Protein 7.3 g/dL (6.4-8.9); eGFR For African Americans > 60 (> 60); eGFR For Non-African Americans > 60 (> 60)
[2020-07-31] MEDS ORDERED: Piperacillin/Tazobactam 3.375 GM in 0.9 % Sodium Chloride Mini Bag 100 ML IVPB ONE (12:34)
[2020-07-31] MEDS ORDERED: Vancomycin 2,000 MG/520 ML IV.SOLN IVPB ONE (12:37)
[2020-07-31] MEDS ORDERED: Ondansetron ODT 4 MG TAB.RAPDIS SL PRN (13:36)
[2020-07-31] MEDS ORDERED: Naloxone 0.4 MG/ML INJ IVP PRN (13:36)
[2020-07-31 14:15] LABS: Bilirubin,Urine Negative (Negative); Blood,Urine Negative (Negative); Clarity,Urine Clear (Clear); Color,Urine Colorless (Yellow); Glucose,Urine (UA) 500 mg/dL (Normal); Ketones,Urine Negative (Negative); Leukocyte Esterase,Urine Negative (Negative); Nitrite,Urine Negative (Negative); Protein,Urine Negative (Neg-Trace); Specific Gravity,Urine 1.023 (1.010-1.025); Urobilinogen,Urine Normal (Normal); WBC,Urine 0-3 per hpf (0-3)
[2020-07-31] MEDS ORDERED: Dextrose Gel 15 GM/37.5 ML TUBE PO PRN ×2 (14:20)
[2020-07-31] MEDS ORDERED: D5% in Water 1,000 ML IVC PRN (14:20)
[2020-07-31] MEDS ORDERED: *HR* Dextrose 50 % in Water (Vial) 50 ML VIAL IVP PRN (14:20)
[2020-07-31] MEDS ORDERED: *HR* OxyCODONE Immed Rel 5 MG TABLET PO PRN (14:20)
[2020-07-31 14:29] LABS: Amphetamine Screen,Urine Negative ng/mL (Cutoff=1000); Barbiturate Screen,Urine Negative ng/mL (Cutoff=200); Benzodiazepines Screen,Urine Positive ng/mL (Cutoff=200); Cannabinoid Screen,Urine Positive ng/mL (Cutoff = 50); Cocaine Screen,Urine Negative ng/mL (Cutoff= 300); Opiate Screen,Urine Negative ng/mL (Cutoff=300); Phencyclidine Screen,Urine Negative ng/mL (Cutoff=25)
[2020-07-31] MEDS: *HR* OxyCODONE Immed Rel 5 MG TABLET PO PRN ×2 (15:24→21:38)
[2020-07-31] MEDS: Nicotine 14 MG PATCH.TD24 TD SCH (15:26)
[2020-07-31] MEDS: *HR* LORazepam 2 MG/ML VIAL IVP PRN ×4 (15:28→21:50)
[2020-07-31] MEDS: Insulin LISPRO 300 UNITS/3 ML VIAL SQ SCH ×2 (16:01→19:23)
[2020-07-31] MEDS ORDERED: *HR* Labetalol 20 MG/4 ML SYRINGE IVP PRN (16:21)
[2020-07-31 16:33] LABS: INR 1.1; Prothrombin Time 12.9 Seconds (9.4-12.1)
[2020-07-31 16:45] LABS: Magnesium 1.5 mg/dL (1.6-2.6); Phosphorous 1.8 mg/dL (2.7-4.5); Troponin I < 0.03 ng/mL (< 0.04)
[2020-07-31 17:30] LABS: Hepatitis B Surface Antigen Nonreactive (Nonreactive)
[2020-07-31] MEDS: Clindamycin 600 MG/50 ML 600 MG/50 ML IV.SOLN IVPB SCH ×2 (17:56→22:48)
[2020-07-31 17:59] LABS: HIV-1&2 Antibody & p24 Ag Nonreactive (Nonreactive)
[2020-07-31 18:03] LABS: Hepatitis A Antibody IgM Nonreactive (Nonreactive)
[2020-07-31 18:05] LABS: Hepatitis B Core IgM Nonreactive (Nonreactive)
[2020-07-31] MEDS ORDERED: Potassium Phosphate 44 MEQ in 0.9 % Sodium Chloride 250 ML IVPB ONE (18:38)
[2020-07-31] MEDS: Thiamine (B-1) 100 MG, Folic Acid 1 MG, MVI, adult with vitamin K 10 ML in 0.9 % Sodi... IVPB SCH (19:33)
[2020-07-31] MEDS: PHENobarbitaL 32.4 MG TABLET PO SCH (19:43)
[2020-07-31] MEDS: cefTRIAXone 2,000 MG in Water for inj. (sterile) 20 ML IVP SCH (19:44)
[2020-07-31] MEDS: *HR* Heparin 5,000 UNIT/ML VIAL SQ SCH (21:46)
[2020-07-31 23:35] LABS: Hepatitis C Virus Antibody Reactive (Nonreactive)
[2020-08-01] MEDS ORDERED: Ketorolac 30 MG/ML VIAL IVP PRN (01:21)
[2020-08-01] MEDS: *HR* LORazepam 2 MG/ML VIAL IVP PRN ×6 (01:32→22:32)
[2020-08-01 01:42] LABS: Basophils # 0.1 K/mcL (0.0-0.2); Basophils % 0.5 %; Eosinophils # 0.1 K/mcL (0.0-0.6); Eosinophils % 1.2 %; Hematocrit 42.1 % (37.5-50.1); Hemoglobin 13.5 g/dL (12.9-16.9); Immature Granulocytes % 0.3 % (0-4); Lymphocytes % 17.9 %; Mean Corpuscular HGB Conc 32.1 g/dL (31.6-35.5); Mean Corpuscular Hemoglobin 29.5 pg (28.0-33.3); Mean Corpuscular Volume 92.1 fL (83.0-100.0); Mean Platelet Volume 10.6 fL (9.4-12.4); Monocytes # 0.8 K/mcL (0.0-1.3); Monocytes % 7.1 %; Neutrophils # 8.2 K/mcL (1.6-8.9); Platelet Count 192 K/mcL (140-400); Red Blood Count 4.57 M/mcL (4.19-5.50); Red Cell Distribution Width 13.8 % (11.5-14.5); White Blood Count 11.2 K/mcL (4.3-11.1)
[2020-08-01 01:57] LABS: Alanine Aminotransferase 47 Units/L (7-52); Albumin 3.9 g/dL (3.5-5.7); Albumin/Globulin Ratio 1.1 (1.1-2.2); Alkaline Phosphatase 87 Units/L (34-104); Aspartate Amino Transferase 41 Units/L (13-39); BUN/Creatinine Ratio 14 (6-26); Bilirubin,Total 0.4 mg/dL (0.3-1.0); Blood Urea Nitrogen 13 mg/dL (6-20); Calcium 8.6 mg/dL (8.6-10.3); Carbon Dioxide 27 mEq/L (23-29); Chloride 102 mEq/L (98-107); Globulin 3.4 g/dL (2.4-3.5); Glucose 138 mg/dL (70-105); Osmolality,Calculated 286 (280-300); Potassium 3.5 mEq/L (3.5-5.1); Sodium 137 mEq/L (136-145); Total Protein 7.3 g/dL (6.4-8.9); eGFR For African Americans > 60 (> 60); eGFR For Non-African Americans > 60 (> 60)
[2020-08-01] MEDS: Vancomycin 1,750 MG/517.5 ML IV.SOLN IVPB SCH ×2 (02:10→14:11)
[2020-08-01] MEDS: *HR* Heparin 5,000 UNIT/ML VIAL SQ SCH ×4 (05:09→21:21)
[2020-08-01] MEDS: *HR* OxyCODONE Immed Rel 5 MG TABLET PO PRN (06:18)
[2020-08-01] MEDS: Clindamycin 600 MG/50 ML 600 MG/50 ML IV.SOLN IVPB SCH ×3 (07:41→23:44)
[2020-08-01] MEDS: PHENobarbitaL 32.4 MG TABLET PO SCH (07:41)
[2020-08-01] MEDS: Insulin LISPRO 300 UNITS/3 ML VIAL SQ SCH ×4 (08:00→21:28)
[2020-08-01] MEDS ORDERED: *HR* Buprenorphine HCl 2 MG SUBLINGUAL TABLET SL SCH (09:00)
[2020-08-01] MEDS: buprenorphine HCL 8 MG, buprenorphine HCL 6 MG SL SCH (09:42)
[2020-08-01 13:07] LABS: Estimated Average Glucose 140 mg/dl
[2020-08-01] MEDS: Nicotine 14 MG PATCH.TD24 TD SCH (14:18)
[2020-08-01] MEDS: Ketorolac 30 MG/ML VIAL IVP PRN ×2 (14:23→22:14)
[2020-08-01] MEDS ORDERED: Mag Hydrox/Al Hydrox/Simeth 30 ML UDC PO PRN (16:20)
[2020-08-01] MEDS ORDERED: Famotidine 20 MG/2 ML VIAL IVP ONE (17:21)
[2020-08-01] MEDS ORDERED: Acetaminophen IV 1,000 MG/100 ML INFUS..BTL IVPB ONE (17:22)
[2020-08-01] MEDS ORDERED: GI Cocktail 40 ML EACH PO ONE (17:24)
[2020-08-01] MEDS ORDERED: Metoclopramide 10 MG/2 ML VIAL IVP ONE (17:27)
[2020-08-01 17:56] LABS: Adenovirus Not Detected (Not Detect); Bordetella Pertussis Not Detected (Not Detect); Chlamydophila pneumoniae Not Detected (Not Detect); Coronavirus 229E Not Detected (Not Detect); Coronavirus HKU1 Not Detected (Not Detect); Coronavirus NL63 Not Detected (Not Detect); Coronavirus OC43 Not Detected (Not Detect); Human Metapneumovirus Not Detected (Not Detect); Human Rhinovirus/Enterovirus Not Detected (Not Detect); Influenza A Subtype 2009 H1 Not Detected (Not Detect); Influenza B Not Detected (Not Detect); Mycoplasma pneumoniae Not Detected (Not Detect); Parainfluenza Virus 1 Not Detected (Not Detect); Parainfluenza Virus 2 Not Detected (Not Detect); Parainfluenza Virus 3 Not Detected (Not Detect); Parainfluenza Virus 4 Not Detected (Not Detect); Respiratory Syncytial Virus Not Detected (Not Detect); SARS-CoV-2 Not Detected (Not Detect)
[2020-08-01] MEDS ORDERED: Gabapentin 400 MG CAPSULE PO SCH (18:00)
[2020-08-01] MEDS: Thiamine (B-1) 100 MG, Folic Acid 1 MG, MVI, adult with vitamin K 10 ML in 0.9 % Sodi... IVPB SCH (21:03)
[2020-08-01] MEDS: cefTRIAXone 2,000 MG in Water for inj. (sterile) 20 ML IVP SCH (21:10)
[2020-08-01] MEDS ORDERED: Melatonin 3 MG TABLET PO ONE (23:06)
[2020-08-02] MEDS ORDERED: *HR* LORazepam 2 MG/ML VIAL IVP ONE (00:18)
[2020-08-02 02:07] LABS: Alanine Aminotransferase 41 Units/L (7-52); Albumin 3.4 g/dL (3.5-5.7); Alkaline Phosphatase 75 Units/L (34-104); Aspartate Amino Transferase 38 Units/L (13-39); BUN/Creatinine Ratio 16 (6-26); Bilirubin,Total 0.3 mg/dL (0.3-1.0); Blood Urea Nitrogen 13 mg/dL (6-20); Calcium 8.1 mg/dL (8.6-10.3); Carbon Dioxide 24 mEq/L (23-29); Chloride 106 mEq/L (98-107); Globulin 3.3 g/dL (2.4-3.5); Glucose 113 mg/dL (70-105); Osmolality,Calculated 287 (280-300); Potassium 3.5 mEq/L (3.5-5.1); Sodium 138 mEq/L (136-145); Total Protein 6.7 g/dL (6.4-8.9); Vancomycin,Trough 8 mcg/mL (5-10); eGFR For African Americans > 60 (> 60); eGFR For Non-African Americans > 60 (> 60)
[2020-08-02] MEDS: Vancomycin 2,000 MG/520 ML IV.SOLN IVPB SCH ×2 (03:08→14:42)
[2020-08-02] MEDS: Acetaminophen 325 MG TABLET PO PRN ×2 (03:23→11:29)
[2020-08-02] MEDS: Ketorolac 30 MG/ML VIAL IVP PRN (04:17)
[2020-08-02] MEDS: Vancomycin 1,750 MG/517.5 ML IV.SOLN IVPB SCH (05:00)
[2020-08-02] MEDS: *HR* Heparin 5,000 UNIT/ML VIAL SQ SCH ×2 (05:10→13:24)
[2020-08-02] MEDS: *HR* LORazepam 2 MG/ML VIAL IVP PRN ×4 (05:36→20:28)
[2020-08-02 08:30] LABS: Basophils # 0.1 K/mcL (0.0-0.2); Basophils % 0.5 %; Eosinophils # 0.3 K/mcL (0.0-0.6); Eosinophils % 3.1 %; Hematocrit 37.1 % (37.5-50.1); Immature Granulocytes % 0.3 % (0-4); Lymphocytes # 1.8 K/mcL (0.6-4.6); Lymphocytes % 17.6 %; Mean Corpuscular HGB Conc 32.3 g/dL (31.6-35.5); Mean Corpuscular Hemoglobin 29.1 pg (28.0-33.3); Mean Corpuscular Volume 89.8 fL (83.0-100.0); Mean Platelet Volume 10.5 fL (9.4-12.4); Monocytes # 0.6 K/mcL (0.0-1.3); Monocytes % 6.1 %; Neutrophils # 7.5 K/mcL (1.6-8.9); Platelet Count 170 K/mcL (140-400); Red Blood Count 4.13 M/mcL (4.19-5.50); Red Cell Distribution Width 13.7 % (11.5-14.5); Segmented Neutrophils % 72.4 %; White Blood Count 10.4 K/mcL (4.3-11.1)
[2020-08-02] MEDS: Clindamycin 600 MG/50 ML 600 MG/50 ML IV.SOLN IVPB SCH ×2 (08:33→15:22)
[2020-08-02] MEDS: buprenorphine HCL 8 MG, buprenorphine HCL 6 MG SL SCH (08:33)
[2020-08-02] MEDS: Insulin LISPRO 300 UNITS/3 ML VIAL SQ SCH ×4 (08:34→20:59)
[2020-08-02] MEDS: Nicotine 14 MG PATCH.TD24 TD SCH (13:25)
[2020-08-02] MEDS: Thiamine (B-1) 100 MG, Folic Acid 1 MG, MVI, adult with vitamin K 10 ML in 0.9 % Sodi... IVPB SCH (16:48)
[2020-08-02] MEDS ORDERED: Dexmedetomidine HCl 400 MCG/100 ML MLS IVC ONE (17:44)
[2020-08-02] MEDS ORDERED: Lidocaine -MPF 2% 2 ML VIAL ONE (17:48)
[2020-08-02] MEDS ORDERED: *HR* FentaNYL (PF) 100 MCG/2 ML VIAL ONE (17:48)
[2020-08-02] MEDS ORDERED: *HR* Propofol 200 MG/20 ML VIAL IVP ONE (17:48)
[2020-08-02] MEDS ORDERED: *HR* Midazolam HCl 2 MG/2 ML VIAL ONE (17:48)
[2020-08-02] MEDS ORDERED: *HR* Succinylcholine 200 MG/10 ML VIAL IVP ONE (17:50)
[2020-08-02] MEDS ORDERED: Lidocaine -MPF 4% 5 ML AMPUL ONE (17:53)
[2020-08-02] MEDS ORDERED: Lidocaine/EPI 1:100k 1% 20 ML VIAL ONE (17:53)
[2020-08-02] MEDS ORDERED: Ondansetron 4 MG/2 ML VIAL ONE (18:03)
[2020-08-02] MEDS ORDERED: Dexamethasone 4 MG/ML VIAL ONE (18:38)
[2020-08-02] MEDS ORDERED: Ondansetron 4 MG/2 ML VIAL IVP PRN (18:57)
[2020-08-02] MEDS: *HR* FentaNYL (PF) 100 MCG/2 ML VIAL IVP PRN ×3 (19:18→21:00)
[2020-08-02 22:54] VITALS: BP 152/84
[2020-08-03] MEDS ORDERED: Multivit/Ca/Min/Fe/FA 1 TAB TABLET PO SCH (09:00)
[2020-08-03] MEDS ORDERED: Folic Acid 1 MG TABLET PO SCH (09:00)
[2020-08-03] MEDS ORDERED: Thiamine (B-1) 100 MG TABLET PO SCH (09:00)
== END 2020-08-02 23:00 | disposition left against medical advice (07) | DRG 464 ==
LOC: 2NNU 10:15 → EMEROOARM 10:15 → 2NNU 15:12 → SUATTDRO 18:25 → 3ANU 08-01 17:31
PROVIDERS: ADMIT Student in an Organized Health Care Education/Training Program; ATTEND Internal Medicine

== ENCOUNTER 2020-08-05 19:40 | Inpatient (IN) ==
[2020-08-05] MEDS ORDERED: cefTRIAXone 1,000 MG in 0.9 % Sodium Chloride Mini Bag 100 ML IVPB ONE (20:23)
[2020-08-05] MEDS ORDERED: Vancomycin 2,000 MG/520 ML IV.SOLN IVPB STA (20:27)
[2020-08-05] MEDS ORDERED: cefTRIAXone 1,000 MG in Water for inj. (sterile) 10 ML IVP ONE (20:30)
[2020-08-05] MEDS ORDERED: *HR* OxyCODONE Immed Rel 5 MG TABLET PO ONE (20:37)
[2020-08-05 20:39] LABS: Basophils # 0.1 K/mcL (0.0-0.2); Basophils % 0.9 %; Eosinophils # 0.4 K/mcL (0.0-0.6); Eosinophils % 4.8 %; Hematocrit 38.8 % (37.5-50.1); Hemoglobin 12.5 g/dL (12.9-16.9); Immature Granulocytes % 0.3 % (0-4); Lymphocytes # 2.3 K/mcL (0.6-4.6); Lymphocytes % 29.8 %; Mean Corpuscular HGB Conc 32.2 g/dL (31.6-35.5); Mean Corpuscular Hemoglobin 28.9 pg (28.0-33.3); Mean Corpuscular Volume 89.6 fL (83.0-100.0); Mean Platelet Volume 9.9 fL (9.4-12.4); Monocytes # 0.5 K/mcL (0.0-1.3); Monocytes % 6.1 %; Neutrophils # 4.5 K/mcL (1.6-8.9); Platelet Count 217 K/mcL (140-400); Red Blood Count 4.33 M/mcL (4.19-5.50); Red Cell Distribution Width 13.8 % (11.5-14.5); Segmented Neutrophils % 58.1 %; White Blood Count 7.7 K/mcL (4.3-11.1)
[2020-08-05 20:58] LABS: BUN/Creatinine Ratio 20 (6-26); Blood Urea Nitrogen 18 mg/dL (6-20); Calcium 8.9 mg/dL (8.6-10.3); Carbon Dioxide 30 mEq/L (23-29); Chloride 102 mEq/L (98-107); Glucose 119 mg/dL (70-105); Osmolality,Calculated 291 (280-300); Potassium 3.3 mEq/L (3.5-5.1); Sodium 139 mEq/L (136-145); eGFR For African Americans > 60 (> 60); eGFR For Non-African Americans > 60 (> 60)
[2020-08-05] MEDS ORDERED: *HR* OxyCODONE Immed Rel 5 MG TABLET PO PRN (21:46)
[2020-08-05] MEDS ORDERED: Naloxone 0.4 MG/ML INJ IVP PRN (21:46)
[2020-08-05] MEDS ORDERED: Ondansetron 4 MG/2 ML VIAL IVP PRN (21:46)
[2020-08-05] MEDS ORDERED: Acetaminophen 325 MG TABLET PO PRN (21:46)
[2020-08-05] MEDS ORDERED: *HR* LORazepam 2 MG/ML VIAL IVP PRN ×2 (21:55)
[2020-08-05] MEDS: Ringers Solution, Lactated 1,000 ML IVC SCH (23:35)
[2020-08-05] MEDS: Gabapentin 400 MG CAPSULE PO SCH (23:36)
[2020-08-05] MEDS ORDERED: *HR* HYDROmorphone (PF) 1 MG/ML SYRINGE IVP PRN (23:59)
[2020-08-06] MEDS: *HR* OxyCODONE Immed Rel 15 MG TABLET PO PRN ×3 (00:31→17:49)
[2020-08-06] MEDS ORDERED: cefTRIAXone 2,000 MG in Water for inj. (sterile) 20 ML IVP SCH (04:00)
[2020-08-06] MEDS ORDERED: D5% in Water 1,000 ML IVC PRN (04:08)
[2020-08-06] MEDS ORDERED: Dextrose Gel 15 GM/37.5 ML TUBE PO PRN ×2 (04:08)
[2020-08-06] MEDS ORDERED: *HR* Dextrose 50 % in Water (Vial) 50 ML VIAL IVP PRN (04:08)
[2020-08-06] MEDS: *HR* Enoxaparin 40 MG/0.4 ML SYRINGE SQ SCH (04:24)
[2020-08-06 04:59] LABS: INR 1.1; Prothrombin Time 12.8 Seconds (9.4-12.1)
[2020-08-06 05:30] LABS: Alanine Aminotransferase 50 Units/L (7-52); Albumin 3.4 g/dL (3.5-5.7); Albumin/Globulin Ratio 1.1 (1.1-2.2); Alkaline Phosphatase 74 Units/L (34-104); Aspartate Amino Transferase 43 Units/L (13-39); BUN/Creatinine Ratio 16 (6-26); Bilirubin,Total 0.2 mg/dL (0.3-1.0); Blood Urea Nitrogen 14 mg/dL (6-20); Calcium 8.7 mg/dL (8.6-10.3); Carbon Dioxide 29 mEq/L (23-29); Chloride 104 mEq/L (98-107); Globulin 3.2 g/dL (2.4-3.5); Glucose 140 mg/dL (70-105); Magnesium 1.6 mg/dL (1.6-2.6); Osmolality,Calculated 289 (280-300); Potassium 3.6 mEq/L (3.5-5.1); Sodium 138 mEq/L (136-145); Total Protein 6.6 g/dL (6.4-8.9); eGFR For African Americans > 60 (> 60); eGFR For Non-African Americans > 60 (> 60)
[2020-08-06 06:00] LABS: Basophils # 0.1 K/mcL (0.0-0.2); Basophils % 0.9 %; Eosinophils # 0.3 K/mcL (0.0-0.6); Eosinophils % 4.4 %; Hematocrit 38.1 % (37.5-50.1); Hemoglobin 12.3 g/dL (12.9-16.9); Immature Granulocytes % 0.7 % (0-4); Lymphocytes % 27.3 %; Mean Corpuscular HGB Conc 32.3 g/dL (31.6-35.5); Mean Corpuscular Hemoglobin 28.7 pg (28.0-33.3); Mean Platelet Volume 9.7 fL (9.4-12.4); Monocytes # 0.6 K/mcL (0.0-1.3); Monocytes % 7.6 %; Neutrophils # 4.4 K/mcL (1.6-8.9); Platelet Count 201 K/mcL (140-400); Red Blood Count 4.28 M/mcL (4.19-5.50); Red Cell Distribution Width 13.7 % (11.5-14.5); Segmented Neutrophils % 59.1 %; White Blood Count 7.5 K/mcL (4.3-11.1)
[2020-08-06] MEDS: Insulin LISPRO 300 UNITS/3 ML VIAL SQ SCH ×4 (07:46→20:28)
[2020-08-06] MEDS: Vancomycin 2,000 MG/520 ML IV.SOLN IVPB SCH ×2 (08:46→21:36)
[2020-08-06] MEDS: Ringers Solution, Lactated 1,000 ML IVC SCH (08:47)
[2020-08-06] MEDS ORDERED: cefTRIAXone 1,000 MG in Water for inj. (sterile) 10 ML IVP SCH (09:00)
[2020-08-06] MEDS: Nicotine 21 MG PATCH.TD24 TD SCH (13:48)
[2020-08-06] MEDS: Thiamine (B-1) 100 MG, Folic Acid 1 MG, MVI, adult with vitamin K 10 ML in 0.9 % Sodi... IVPB SCH (17:50)
[2020-08-06] MEDS ORDERED: cloNIDine HCL 0.1 MG TABLET PO SCH (21:00)
[2020-08-06] MEDS: *HR* LORazepam 2 MG/ML VIAL IVP PRN (21:36)
[2020-08-06] MEDS ORDERED: *HR* HYDROmorphone (PF) 1 MG/ML SYRINGE IVP PRN (22:41)
[2020-08-07] MEDS: *HR* OxyCODONE Immed Rel 15 MG TABLET PO PRN ×3 (03:07→19:04)
[2020-08-07] MEDS: *HR* Enoxaparin 40 MG/0.4 ML SYRINGE SQ SCH (04:37)
[2020-08-07] MEDS: cloNIDine HCL 0.1 MG TABLET PO SCH ×3 (08:29→21:06)
[2020-08-07] MEDS: lisinopriL 10 MG TABLET PO SCH (08:29)
[2020-08-07] MEDS: Vancomycin 2,000 MG/520 ML IV.SOLN IVPB SCH ×2 (08:31→21:07)
[2020-08-07] MEDS: Nicotine 21 MG PATCH.TD24 TD SCH (08:31)
[2020-08-07] MEDS: Insulin LISPRO 300 UNITS/3 ML VIAL SQ SCH ×4 (08:43→20:10)
[2020-08-07 10:23] LABS: BUN/Creatinine Ratio 16 (6-26); Blood Urea Nitrogen 14 mg/dL (6-20); eGFR For African Americans > 60 (> 60); eGFR For Non-African Americans > 60 (> 60)
[2020-08-07] MEDS: *HR* OxyCODONE Immed Rel 5 MG TABLET PO PRN (15:15)
[2020-08-07] MEDS: *HR* LORazepam 2 MG/ML VIAL IVP PRN ×2 (17:39→22:02)
[2020-08-07] MEDS: Thiamine (B-1) 100 MG, Folic Acid 1 MG, MVI, adult with vitamin K 10 ML in 0.9 % Sodi... IVPB SCH (17:39)
[2020-08-07] MEDS: Gabapentin 400 MG CAPSULE PO SCH (21:07)
[2020-08-08] MEDS: *HR* OxyCODONE Immed Rel 5 MG TABLET PO PRN ×2 (01:40→12:55)
[2020-08-08 03:51] LABS: Hematocrit 36.5 % (37.5-50.1); Hemoglobin 11.9 g/dL (12.9-16.9); Mean Corpuscular HGB Conc 32.6 g/dL (31.6-35.5); Mean Corpuscular Hemoglobin 29.5 pg (28.0-33.3); Mean Corpuscular Volume 90.6 fL (83.0-100.0); Mean Platelet Volume 9.9 fL (9.4-12.4); Platelet Count 190 K/mcL (140-400); Red Blood Count 4.03 M/mcL (4.19-5.50); Red Cell Distribution Width 13.4 % (11.5-14.5)
[2020-08-08 04:08] LABS: BUN/Creatinine Ratio 18 (6-26); Blood Urea Nitrogen 18 mg/dL (6-20); Calcium 8.7 mg/dL (8.6-10.3); Carbon Dioxide 32 mEq/L (23-29); Chloride 102 mEq/L (98-107); Glucose 133 mg/dL (70-105); Osmolality,Calculated 290 (280-300); Potassium 3.6 mEq/L (3.5-5.1); Sodium 138 mEq/L (136-145); eGFR For African Americans > 60 (> 60); eGFR For Non-African Americans > 60 (> 60)
[2020-08-08] MEDS: *HR* Enoxaparin 40 MG/0.4 ML SYRINGE SQ SCH (05:35)
[2020-08-08] MEDS: *HR* LORazepam 2 MG/ML VIAL IVP PRN ×3 (06:51→21:39)
[2020-08-08] MEDS: cloNIDine HCL 0.1 MG TABLET PO SCH ×3 (07:43→21:41)
[2020-08-08] MEDS: lisinopriL 10 MG TABLET PO SCH (07:45)
[2020-08-08] MEDS: Insulin LISPRO 300 UNITS/3 ML VIAL SQ SCH ×3 (07:48→16:39)
[2020-08-08] MEDS: Nicotine 21 MG PATCH.TD24 TD SCH (07:50)
[2020-08-08] MEDS: Vancomycin 2,000 MG/520 ML IV.SOLN IVPB SCH ×2 (10:19→23:10)
[2020-08-08] MEDS: *HR* OxyCODONE Immed Rel 15 MG TABLET PO PRN ×2 (16:10→21:40)
[2020-08-08] MEDS ORDERED: Ondansetron 4 MG/2 ML VIAL ONE (16:17)
[2020-08-08] MEDS ORDERED: Dexamethasone 4 MG/ML VIAL ONE (16:17)
[2020-08-08] MEDS ORDERED: *HR* Propofol 200 MG/20 ML VIAL IVP ONE ×3 (16:17→18:28)
[2020-08-08] MEDS ORDERED: Lidocaine -MPF 2% 2 ML VIAL ONE ×2 (16:17→16:31)
[2020-08-08] MEDS ORDERED: Lidocaine/EPI 1:100k 1% 20 ML VIAL ONE (16:17)
[2020-08-08] MEDS ORDERED: *HR* Midazolam HCl 2 MG/2 ML VIAL ONE (16:18)
[2020-08-08] MEDS ORDERED: *HR* FentaNYL (PF) 100 MCG/2 ML VIAL ONE (16:18)
[2020-08-08] MEDS ORDERED: *HR* Succinylcholine 200 MG/10 ML VIAL IVP ONE (16:18)
[2020-08-08] MEDS ORDERED: Lidocaine -MPF 4% 5 ML AMPUL ONE (16:18)
[2020-08-08] MEDS: Thiamine (B-1) 100 MG, Folic Acid 1 MG, MVI, adult with vitamin K 10 ML in 0.9 % Sodi... IVPB SCH (16:41)
[2020-08-08] MEDS: *HR* HYDROmorphone PF 0.5 MG/0.5 ML SYRINGE IVP SCH ×4 (18:55→19:10)
[2020-08-08] MEDS ORDERED: *HR* HYDROmorphone (PF) 1 MG/ML SYRINGE IVP ONE (19:19)
[2020-08-08] MEDS ORDERED: Acetaminophen 325 MG TABLET PO PRN (20:03)
[2020-08-08] MEDS ORDERED: Ondansetron 4 MG/2 ML VIAL IVP PRN (20:03)
[2020-08-08] MEDS ORDERED: *HR* OxyCODONE Immed Rel 5 MG TABLET PO PRN (20:03)
[2020-08-08] MEDS ORDERED: *HR* Dextrose 50 % in Water (Vial) 50 ML VIAL IVP PRN (20:03)
[2020-08-08] MEDS ORDERED: *HR* LORazepam 2 MG/ML VIAL IVP PRN ×2 (20:03)
[2020-08-08] MEDS ORDERED: D5% in Water 1,000 ML IVC PRN (20:03)
[2020-08-08] MEDS ORDERED: Naloxone 0.4 MG/ML INJ IVP PRN (20:03)
[2020-08-08] MEDS ORDERED: Dextrose Gel 15 GM/37.5 ML TUBE PO PRN ×2 (20:03)
[2020-08-08] MEDS ORDERED: Insulin LISPRO 300 UNITS/3 ML VIAL SQ SCH (21:00)
[2020-08-09] MEDS: *HR* OxyCODONE Immed Rel 15 MG TABLET PO PRN ×2 (03:57→10:33)
[2020-08-09] MEDS ORDERED: *HR* Enoxaparin 40 MG/0.4 ML SYRINGE SQ SCH (06:00)
[2020-08-09 06:26] LABS: Hematocrit 36.9 % (37.5-50.1); Hemoglobin 12.2 g/dL (12.9-16.9); Mean Corpuscular HGB Conc 33.1 g/dL (31.6-35.5); Mean Corpuscular Hemoglobin 29.4 pg (28.0-33.3); Mean Corpuscular Volume 88.9 fL (83.0-100.0); Mean Platelet Volume 9.7 fL (9.4-12.4); Platelet Count 218 K/mcL (140-400); Red Blood Count 4.15 M/mcL (4.19-5.50); Red Cell Distribution Width 13.2 % (11.5-14.5); White Blood Count 9.5 K/mcL (4.3-11.1)
[2020-08-09 06:50] LABS: BUN/Creatinine Ratio 23 (6-26); Blood Urea Nitrogen 21 mg/dL (6-20); Calcium 9.2 mg/dL (8.6-10.3); Carbon Dioxide 28 mEq/L (23-29); Chloride 102 mEq/L (98-107); Glucose 185 mg/dL (70-105); Osmolality,Calculated 292 (280-300); Potassium 4.1 mEq/L (3.5-5.1); Sodium 137 mEq/L (136-145); eGFR For African Americans > 60 (> 60); eGFR For Non-African Americans > 60 (> 60)
[2020-08-09 07:58] VITALS: BP 185/97
[2020-08-09] MEDS: cloNIDine HCL 0.1 MG TABLET PO SCH ×2 (08:12→13:58)
[2020-08-09] MEDS: Insulin LISPRO 300 UNITS/3 ML VIAL SQ SCH ×2 (08:18→12:12)
[2020-08-09] MEDS ORDERED: lisinopriL 10 MG TABLET PO SCH (09:00)
[2020-08-09] MEDS ORDERED: Nicotine 21 MG PATCH.TD24 TD SCH (09:00)
[2020-08-09] MEDS ORDERED: Vancomycin 1,500 MG/265 ML IV.SOLN IVPB SCH (11:00)
[2020-08-09] MEDS ORDERED: *HR* OxyCODONE Immed Rel 15 MG TABLET PO PRN (11:52)
[2020-08-09] MEDS: Vancomycin 2,000 MG/520 ML IV.SOLN IVPB SCH (11:53)
[2020-08-09] MEDS ORDERED: cefTRIAXone 2,000 MG in 0.9 % Sodium Chloride Mini Bag 100 ML IVP SCH (14:00)
[2020-08-09] MEDS: *HR* LORazepam 2 MG/ML VIAL IVP PRN (14:34)
[2020-08-09] MEDS ORDERED: Thiamine (B-1) 100 MG, Folic Acid 1 MG, MVI, adult with vitamin K 10 ML in 0.9 % Sodi... IVPB SCH (18:00)
[2020-08-09] MEDS ORDERED: Gabapentin 400 MG CAPSULE PO SCH (22:00)
[2020-08-10] MEDS ORDERED: cefTRIAXone 1,000 MG in Water for inj. (sterile) 10 ML IVP SCH (09:00)
[2020-08-10] MEDS ORDERED: Thiamine (B-1) 100 MG TABLET PO SCH (09:00)
== END 2020-08-09 15:28 | disposition left against medical advice (07) | DRG 574 ==
LOC: EMEROOARM 19:40 → 3BNU 19:40 → 3ANU 08-08 19:43
PROVIDERS: ADMIT Internal Medicine; ATTEND Internal Medicine

== ENCOUNTER 2020-08-15 12:53 | Inpatient (IN) ==
[2020-08-15 15:07] LABS: Alanine Aminotransferase 71 Units/L (7-52); Albumin/Globulin Ratio 1.1 (1.1-2.2); Alkaline Phosphatase 88 Units/L (34-104); Aspartate Amino Transferase 54 Units/L (13-39); BUN/Creatinine Ratio 15 (6-26); Bilirubin,Direct 0.1 mg/dL (0.0-0.2); Bilirubin,Indirect 0.3 mg/dL (0.0-1.0); Bilirubin,Total 0.4 mg/dL (0.3-1.0); Blood Urea Nitrogen 12 mg/dL (6-20); Calcium 9.4 mg/dL (8.6-10.3); Carbon Dioxide 32 mEq/L (23-29); Chloride 101 mEq/L (98-107); Globulin 3.6 g/dL (2.4-3.5); Glucose 84 mg/dL (70-105); Lipase 23 Units/L (11-82); Osmolality,Calculated 287 (280-300); Potassium 3.6 mEq/L (3.5-5.1); Sodium 139 mEq/L (136-145); Total Protein 7.6 g/dL (6.4-8.9); Troponin I < 0.03 ng/mL (< 0.04); eGFR For African Americans > 60 (> 60); eGFR For Non-African Americans > 60 (> 60)
[2020-08-15] MEDS ORDERED: *HR* LORazepam 2 MG/ML VIAL IVP ONE (15:07)
[2020-08-15 15:10] LABS: Basophils # 0.1 K/mcL (0.0-0.2); Basophils % 0.8 %; Eosinophils # 0.2 K/mcL (0.0-0.6); Eosinophils % 1.9 %; Hematocrit 41.9 % (37.5-50.1); Hemoglobin 13.7 g/dL (12.9-16.9); Immature Granulocytes % 0.3 % (0-4); Lymphocytes # 1.8 K/mcL (0.6-4.6); Lymphocytes % 20.3 %; Mean Corpuscular HGB Conc 32.7 g/dL (31.6-35.5); Mean Corpuscular Hemoglobin 29.8 pg (28.0-33.3); Mean Corpuscular Volume 91.1 fL (83.0-100.0); Mean Platelet Volume 10.1 fL (9.4-12.4); Monocytes # 0.6 K/mcL (0.0-1.3); Monocytes % 6.2 %; Neutrophils # 6.2 K/mcL (1.6-8.9); Platelet Count 233 K/mcL (140-400); Red Cell Distribution Width 14.2 % (11.5-14.5); Segmented Neutrophils % 70.5 %; White Blood Count 8.8 K/mcL (4.3-11.1)
[2020-08-15] MEDS ORDERED: cefTRIAXone 1,000 MG in 0.9 % Sodium Chloride Mini Bag 100 ML IVPB ONE (15:27)
[2020-08-15] MEDS ORDERED: Ondansetron ODT 4 MG TAB.RAPDIS SL PRN (17:48)
[2020-08-15] MEDS ORDERED: MOM Conc 10 ML UD.LIQ PO PRN (17:48)
[2020-08-15] MEDS ORDERED: Ketorolac 30 MG/ML VIAL IVP PRN (17:48)
[2020-08-15] MEDS ORDERED: Naloxone 0.4 MG/ML INJ IVP PRN (17:48)
[2020-08-15] MEDS ORDERED: *HR* LORazepam 2 MG/ML VIAL IVP PRN (17:52)
[2020-08-15] MEDS ORDERED: *HR* Dextrose 50 % in Water (Vial) 50 ML VIAL IVP PRN (17:53)
[2020-08-15] MEDS ORDERED: D5% in Water 1,000 ML IVC PRN (17:53)
[2020-08-15] MEDS ORDERED: Dextrose Gel 15 GM/37.5 ML TUBE PO PRN ×2 (17:53)
[2020-08-15] MEDS ORDERED: Isovue-370 500 ML BOTTLE IVP ONE (18:09)
[2020-08-15 18:25] LABS: Estimated Average Glucose 140 mg/dl; Hemoglobin A1C 6.5 %
[2020-08-15 18:47] LABS: C-Reactive Protein 8 mg/L (Less than 10)
[2020-08-15] MEDS ORDERED: Vancomycin 2,000 MG/520 ML IV.SOLN IVPB ONE (19:08)
[2020-08-15] MEDS: *HR* LORazepam 2 MG/ML VIAL IVP PRN ×2 (19:34→23:23)
[2020-08-15] MEDS: Nicotine 21 MG PATCH.TD24 TD SCH (21:14)
[2020-08-15] MEDS: Gabapentin 400 MG CAPSULE PO SCH (21:15)
[2020-08-15] MEDS: Thiamine (B-1) 100 MG, Folic Acid 1 MG, MVI, adult with vitamin K 10 ML in 0.9 % Sodi... IVPB SCH (22:35)
[2020-08-15] MEDS: Insulin LISPRO 300 UNITS/3 ML VIAL SQ SCH (23:31)
[2020-08-15] MEDS: *HR* Heparin 5,000 UNIT/ML VIAL SQ SCH (23:31)
[2020-08-16] MEDS: *HR* LORazepam 2 MG/ML VIAL IVP PRN ×6 (04:02→22:34)
[2020-08-16] MEDS: *HR* Heparin 5,000 UNIT/ML VIAL SQ SCH ×4 (05:16→21:59)
[2020-08-16 06:22] LABS: Basophils # 0.1 K/mcL (0.0-0.2); Basophils % 0.8 %; Eosinophils # 0.3 K/mcL (0.0-0.6); Eosinophils % 3.3 %; Hemoglobin 12.7 g/dL (12.9-16.9); Immature Granulocytes % 0.3 % (0-4); Lymphocytes # 1.5 K/mcL (0.6-4.6); Lymphocytes % 16.1 %; Mean Corpuscular HGB Conc 31.8 g/dL (31.6-35.5); Mean Corpuscular Hemoglobin 28.7 pg (28.0-33.3); Mean Corpuscular Volume 90.3 fL (83.0-100.0); Monocytes # 0.6 K/mcL (0.0-1.3); Monocytes % 6.5 %; Neutrophils # 6.6 K/mcL (1.6-8.9); Platelet Count 214 K/mcL (140-400); Red Blood Count 4.43 M/mcL (4.19-5.50); Red Cell Distribution Width 14.2 % (11.5-14.5); White Blood Count 9.1 K/mcL (4.3-11.1)
[2020-08-16 06:26] LABS: INR 1.1; Prothrombin Time 13.1 Seconds (9.4-12.1)
[2020-08-16 06:38] LABS: Alanine Aminotransferase 58 Units/L (7-52); Albumin 3.6 g/dL (3.5-5.7); Albumin/Globulin Ratio 1.1 (1.1-2.2); Alkaline Phosphatase 73 Units/L (34-104); Aspartate Amino Transferase 45 Units/L (13-39); BUN/Creatinine Ratio 17 (6-26); Bilirubin,Total 0.4 mg/dL (0.3-1.0); Blood Urea Nitrogen 14 mg/dL (6-20); Calcium 8.9 mg/dL (8.6-10.3); Carbon Dioxide 27 mEq/L (23-29); Chloride 104 mEq/L (98-107); Globulin 3.2 g/dL (2.4-3.5); Glucose 109 mg/dL (70-105); Osmolality,Calculated 287 (280-300); Potassium 3.2 mEq/L (3.5-5.1); Sodium 138 mEq/L (136-145); Total Protein 6.8 g/dL (6.4-8.9); eGFR For African Americans > 60 (> 60); eGFR For Non-African Americans > 60 (> 60)
[2020-08-16] MEDS: Gabapentin 400 MG CAPSULE PO SCH ×3 (09:03→20:49)
[2020-08-16] MEDS: *HR* Buprenorphine HCl 8 MG TAB.SUBL SL SCH (09:04)
[2020-08-16] MEDS: Nicotine 21 MG PATCH.TD24 TD SCH (09:06)
[2020-08-16] MEDS: cefTRIAXone 1,000 MG in Water for inj. (sterile) 10 ML IVP SCH (09:12)
[2020-08-16] MEDS: Insulin LISPRO 300 UNITS/3 ML VIAL SQ SCH ×4 (09:19→21:57)
[2020-08-16] MEDS: Vancomycin 1,500 MG/265 ML IV.SOLN IVPB SCH ×2 (09:19→20:50)
[2020-08-16] MEDS ORDERED: *HR* OxyCODONE/APAP 5/325 TABLET PO PRN (14:20)
[2020-08-16] MEDS: *HR* OxyCODONE/APAP 10/325 TABLET PO PRN ×3 (14:28→22:33)
[2020-08-16] MEDS: Thiamine (B-1) 100 MG, Folic Acid 1 MG, MVI, adult with vitamin K 10 ML in 0.9 % Sodi... IVPB SCH (17:27)
[2020-08-16] MEDS: Acetaminophen 325 MG TABLET PO PRN (17:38)
[2020-08-16 21:56] LABS: Adenovirus Not Detected (Not Detect); Bordetella Pertussis Not Detected (Not Detect); Chlamydophila pneumoniae Not Detected (Not Detect); Coronavirus 229E Not Detected (Not Detect); Coronavirus HKU1 Not Detected (Not Detect); Coronavirus NL63 Not Detected (Not Detect); Coronavirus OC43 Not Detected (Not Detect); Human Metapneumovirus Not Detected (Not Detect); Human Rhinovirus/Enterovirus Not Detected (Not Detect); Influenza A Subtype 2009 H1 Not Detected (Not Detect); Influenza B Not Detected (Not Detect); Mycoplasma pneumoniae Not Detected (Not Detect); Parainfluenza Virus 1 Not Detected (Not Detect); Parainfluenza Virus 2 Not Detected (Not Detect); Parainfluenza Virus 3 Not Detected (Not Detect); Parainfluenza Virus 4 Not Detected (Not Detect); Respiratory Syncytial Virus Not Detected (Not Detect); SARS-CoV-2 Not Detected (Not Detect)
[2020-08-17] MEDS: *HR* LORazepam 2 MG/ML VIAL IVP PRN ×6 (02:31→22:15)
[2020-08-17] MEDS: *HR* OxyCODONE/APAP 10/325 TABLET PO PRN ×3 (02:31→10:32)
[2020-08-17] MEDS: *HR* Heparin 5,000 UNIT/ML VIAL SQ SCH ×3 (06:31→20:12)
[2020-08-17] MEDS: Insulin LISPRO 300 UNITS/3 ML VIAL SQ SCH ×3 (07:57→20:11)
[2020-08-17] MEDS ORDERED: Vancomycin 2,000 MG/520 ML IV.SOLN IVPB SCH (09:00)
[2020-08-17] MEDS: Gabapentin 400 MG CAPSULE PO SCH ×2 (09:12→20:11)
[2020-08-17] MEDS: Acetaminophen 325 MG TABLET PO PRN (09:12)
[2020-08-17] MEDS: *HR* Buprenorphine HCl 8 MG TAB.SUBL SL SCH (09:13)
[2020-08-17] MEDS: cefTRIAXone 1,000 MG in Water for inj. (sterile) 10 ML IVP SCH (09:13)
[2020-08-17] MEDS: Nicotine 21 MG PATCH.TD24 TD SCH (09:13)
[2020-08-17 10:44] LABS: Alanine Aminotransferase 57 Units/L (7-52); Albumin 3.5 g/dL (3.5-5.7); Albumin/Globulin Ratio 1.1 (1.1-2.2); Alkaline Phosphatase 72 Units/L (34-104); Aspartate Amino Transferase 45 Units/L (13-39); BUN/Creatinine Ratio 17 (6-26); Bilirubin,Total 0.3 mg/dL (0.3-1.0); Blood Urea Nitrogen 16 mg/dL (6-20); Carbon Dioxide 28 mEq/L (23-29); Chloride 104 mEq/L (98-107); Globulin 3.3 g/dL (2.4-3.5); Glucose 130 mg/dL (70-105); Magnesium 1.8 mg/dL (1.6-2.6); Osmolality,Calculated 289 (280-300); Potassium 3.6 mEq/L (3.5-5.1); Sodium 138 mEq/L (136-145); Total Protein 6.8 g/dL (6.4-8.9); eGFR For African Americans > 60 (> 60); eGFR For Non-African Americans > 60 (> 60)
[2020-08-17] MEDS ORDERED: Acetaminophen IV 1,000 MG/100 ML BAG IVPB ONE (13:00)
[2020-08-17] MEDS ORDERED: Ondansetron 4 MG/2 ML VIAL IVP PRN ×2 (13:41→17:03)
[2020-08-17] MEDS ORDERED: Lidocaine/EPI 1:100k 1% 20 ML VIAL ONE (14:07)
[2020-08-17] MEDS ORDERED: Ketamine *HR* 500 MG/10 ML MDV ONE (14:13)
[2020-08-17] MEDS ORDERED: *HR* Propofol 200 MG/20 ML VIAL IVP ONE (14:51)
[2020-08-17] MEDS ORDERED: Dexamethasone 4 MG/ML VIAL ONE (14:51)
[2020-08-17] MEDS ORDERED: *HR* Succinylcholine 200 MG/10 ML VIAL IVP ONE (14:51)
[2020-08-17] MEDS ORDERED: *HR* Rocuronium Bromide 50 MG/5 ML VIAL ONE (14:51)
[2020-08-17] MEDS ORDERED: Ondansetron 4 MG/2 ML VIAL ONE (14:51)
[2020-08-17] MEDS ORDERED: *HR* FentaNYL (PF) 100 MCG/2 ML VIAL ONE ×3 (14:51→16:44)
[2020-08-17] MEDS ORDERED: *HR* Midazolam HCl 2 MG/2 ML VIAL ONE (14:51)
[2020-08-17] MEDS ORDERED: Lidocaine -MPF 4% 5 ML AMPUL ONE (14:51)
[2020-08-17] MEDS ORDERED: *HR* PHENYLEPHRINE 1,000 MCG/10 ML SYRINGE IVP ONE (14:51)
[2020-08-17] MEDS ORDERED: Lidocaine -MPF 2% 2 ML VIAL ONE ×2 (14:51)
[2020-08-17] MEDS ORDERED: Ethanol\\Acetic Acid\\Na Ace\\Ben 1,000 ML IRRIG.SOLN IR ONE (14:52)
[2020-08-17] MEDS: *HR* HYDROmorphone PF 0.5 MG/0.5 ML SYRINGE IVP PRN ×4 (15:49→16:19)
[2020-08-17] MEDS: *HR* FentaNYL (PF) 100 MCG/2 ML VIAL IVP PRN ×2 (16:26→16:36)
[2020-08-17] MEDS ORDERED: *HR* FentaNYL (PF) 100 MCG/2 ML VIAL IVP PRN (16:42)
[2020-08-17] MEDS ORDERED: D5% in Water 1,000 ML IVC PRN (17:03)
[2020-08-17] MEDS ORDERED: Acetaminophen 325 MG TABLET PO PRN (17:03)
[2020-08-17] MEDS ORDERED: Dextrose Gel 15 GM/37.5 ML TUBE PO PRN ×2 (17:03)
[2020-08-17] MEDS ORDERED: *HR* LORazepam 2 MG/ML VIAL IVP PRN (17:03)
[2020-08-17] MEDS ORDERED: Ondansetron ODT 4 MG TAB.RAPDIS SL PRN (17:03)
[2020-08-17] MEDS ORDERED: MOM Conc 10 ML UD.LIQ PO PRN (17:03)
[2020-08-17] MEDS ORDERED: Naloxone 0.4 MG/ML INJ IVP PRN (17:03)
[2020-08-17] MEDS ORDERED: *HR* Dextrose 50 % in Water (Vial) 50 ML VIAL IVP PRN (17:03)
[2020-08-17] MEDS ORDERED: *HR* OxyCODONE/APAP 10/325 TABLET PO PRN (17:03)
[2020-08-17] MEDS ORDERED: *HR* HYDROmorphone (PF) 1 MG/ML SYRINGE IVP ONE (17:27)
[2020-08-17] MEDS ORDERED: Thiamine (B-1) 100 MG, Folic Acid 1 MG, MVI, adult with vitamin K 10 ML in 0.9 % Sodi... IVPB SCH (18:00)
[2020-08-17] MEDS: amLODIPine 5 MG TABLET PO SCH (18:30)
[2020-08-17] MEDS: *HR* OxyCODONE/APAP 7.5/325 TABLET PO PRN (19:40)
[2020-08-17] MEDS: Vancomycin 2,000 MG/520 ML IV.SOLN IVPB SCH (20:15)
[2020-08-17] MEDS: *HR* OxyCODONE/APAP 5/325 TABLET PO PRN (22:12)
[2020-08-18] MEDS: *HR* OxyCODONE/APAP 7.5/325 TABLET PO PRN ×4 (01:40→20:50)
[2020-08-18] MEDS: *HR* LORazepam 2 MG/ML VIAL IVP PRN ×5 (01:53→20:51)
[2020-08-18] MEDS: *HR* Heparin 5,000 UNIT/ML VIAL SQ SCH ×3 (05:24→20:51)
[2020-08-18] MEDS: *HR* OxyCODONE/APAP 5/325 TABLET PO PRN ×2 (05:25→19:45)
[2020-08-18] MEDS: Insulin LISPRO 300 UNITS/3 ML VIAL SQ SCH ×5 (07:19→21:25)
[2020-08-18] MEDS: Gabapentin 400 MG CAPSULE PO SCH ×4 (07:19→20:50)
[2020-08-18] MEDS: Vancomycin 1,500 MG/265 ML IV.SOLN IVPB SCH (07:19)
[2020-08-18] MEDS: Nicotine 21 MG PATCH.TD24 TD SCH (08:32)
[2020-08-18] MEDS: *HR* Buprenorphine HCl 8 MG TAB.SUBL SL SCH (08:32)
[2020-08-18] MEDS: cefTRIAXone 1,000 MG in Water for inj. (sterile) 10 ML IVP SCH (08:33)
[2020-08-18] MEDS: amLODIPine 5 MG TABLET PO SCH (08:34)
[2020-08-18] MEDS: Vancomycin 2,000 MG/520 ML IV.SOLN IVPB SCH ×2 (08:35→22:25)
[2020-08-18 08:54] LABS: Alanine Aminotransferase 51 Units/L (7-52); Albumin 3.8 g/dL (3.5-5.7); Albumin/Globulin Ratio 1.2 (1.1-2.2); Alkaline Phosphatase 67 Units/L (34-104); Aspartate Amino Transferase 34 Units/L (13-39); BUN/Creatinine Ratio 25 (6-26); Bilirubin,Total 0.3 mg/dL (0.3-1.0); Blood Urea Nitrogen 22 mg/dL (6-20); Calcium 9.3 mg/dL (8.6-10.3); Carbon Dioxide 27 mEq/L (23-29); Chloride 103 mEq/L (98-107); Globulin 3.3 g/dL (2.4-3.5); Glucose 206 mg/dL (70-105); Osmolality,Calculated 291 (280-300); Sodium 136 mEq/L (136-145); Total Protein 7.1 g/dL (6.4-8.9); eGFR For African Americans > 60 (> 60); eGFR For Non-African Americans > 60 (> 60)
[2020-08-18] MEDS ORDERED: Ibuprofen 400 MG TABLET PO PRN (11:35)
[2020-08-18] MEDS ORDERED: Acetaminophen 325 MG TABLET PO PRN (11:35)
[2020-08-18] MEDS: hydrALAZINE 10 MG TABLET PO SCH ×3 (14:16→20:50)
[2020-08-18] MEDS ORDERED: *HR* HYDROmorphone (PF) 1 MG/ML SYRINGE IVP ONE (18:32)
[2020-08-19] MEDS: *HR* OxyCODONE/APAP 5/325 TABLET PO PRN (01:15)
[2020-08-19] MEDS: *HR* LORazepam 2 MG/ML VIAL IVP PRN ×4 (01:15→18:20)
[2020-08-19] MEDS: *HR* OxyCODONE/APAP 7.5/325 TABLET PO PRN ×5 (02:50→22:26)
[2020-08-19] MEDS: *HR* Heparin 5,000 UNIT/ML VIAL SQ SCH ×3 (05:53→22:26)
[2020-08-19 08:02] LABS: Alanine Aminotransferase 46 Units/L (7-52); Albumin 3.6 g/dL (3.5-5.7); Albumin/Globulin Ratio 1.2 (1.1-2.2); Alkaline Phosphatase 67 Units/L (34-104); Aspartate Amino Transferase 31 Units/L (13-39); BUN/Creatinine Ratio 28 (6-26); Bilirubin,Total 0.2 mg/dL (0.3-1.0); Blood Urea Nitrogen 27 mg/dL (6-20); Calcium 8.7 mg/dL (8.6-10.3); Carbon Dioxide 27 mEq/L (23-29); Chloride 106 mEq/L (98-107); Globulin 3.1 g/dL (2.4-3.5); Glucose 162 mg/dL (70-105); Osmolality,Calculated 299 (280-300); Potassium 3.4 mEq/L (3.5-5.1); Sodium 140 mEq/L (136-145); Total Protein 6.7 g/dL (6.4-8.9); eGFR For African Americans > 60 (> 60); eGFR For Non-African Americans > 60 (> 60)
[2020-08-19] MEDS: Insulin LISPRO 300 UNITS/3 ML VIAL SQ SCH ×3 (08:59→18:21)
[2020-08-19] MEDS: Gabapentin 400 MG CAPSULE PO SCH ×3 (09:09→22:25)
[2020-08-19] MEDS: *HR* Buprenorphine HCl 8 MG TAB.SUBL SL SCH (09:09)
[2020-08-19] MEDS: amLODIPine 5 MG TABLET PO SCH (09:10)
[2020-08-19] MEDS: cefTRIAXone 1,000 MG in Water for inj. (sterile) 10 ML IVP SCH (09:10)
[2020-08-19] MEDS: hydrALAZINE 10 MG TABLET PO SCH ×3 (09:10→22:25)
[2020-08-19] MEDS: Nicotine 21 MG PATCH.TD24 TD SCH (09:11)
[2020-08-19] MEDS: Vancomycin 2,000 MG/520 ML IV.SOLN IVPB SCH (09:11)
[2020-08-20] MEDS ORDERED: hydrALAZINE 25 MG TABLET PO ONE (01:25)
[2020-08-20] MEDS: *HR* LORazepam 2 MG/ML VIAL IVP PRN ×3 (02:23→22:27)
[2020-08-20] MEDS: *HR* OxyCODONE/APAP 7.5/325 TABLET PO PRN ×5 (02:24→21:38)
[2020-08-20] MEDS: Vancomycin 1,500 MG/265 ML IV.SOLN IVPB SCH ×3 (02:43→15:36)
[2020-08-20 03:08] LABS: Basophils # 0.1 K/mcL (0.0-0.2); Basophils % 1.4 %; Eosinophils # 0.2 K/mcL (0.0-0.6); Eosinophils % 2.5 %; Hematocrit 39.1 % (37.5-50.1); Hemoglobin 12.5 g/dL (12.9-16.9); Immature Granulocytes % 0.2 % (0-4); Lymphocytes # 2.8 K/mcL (0.6-4.6); Lymphocytes % 33.5 %; Mean Corpuscular Hemoglobin 29.3 pg (28.0-33.3); Mean Corpuscular Volume 91.6 fL (83.0-100.0); Mean Platelet Volume 10.5 fL (9.4-12.4); Monocytes # 0.6 K/mcL (0.0-1.3); Monocytes % 7.6 %; Neutrophils # 4.6 K/mcL (1.6-8.9); Platelet Count 223 K/mcL (140-400); Red Blood Count 4.27 M/mcL (4.19-5.50); Red Cell Distribution Width 14.3 % (11.5-14.5); Segmented Neutrophils % 54.8 %; White Blood Count 8.5 K/mcL (4.3-11.1)
[2020-08-20 03:21] LABS: Alanine Aminotransferase 63 Units/L (7-52); Albumin 3.8 g/dL (3.5-5.7); Albumin/Globulin Ratio 1.1 (1.1-2.2); Alkaline Phosphatase 63 Units/L (34-104); Aspartate Amino Transferase 50 Units/L (13-39); BUN/Creatinine Ratio 33 (6-26); Bilirubin,Total 0.3 mg/dL (0.3-1.0); Blood Urea Nitrogen 34 mg/dL (6-20); Calcium 8.9 mg/dL (8.6-10.3); Carbon Dioxide 29 mEq/L (23-29); Chloride 104 mEq/L (98-107); Globulin 3.4 g/dL (2.4-3.5); Glucose 90 mg/dL (70-105); Osmolality,Calculated 299 (280-300); Potassium 3.7 mEq/L (3.5-5.1); Sodium 141 mEq/L (136-145); Total Protein 7.2 g/dL (6.4-8.9); eGFR For African Americans > 60 (> 60); eGFR For Non-African Americans > 60 (> 60)
[2020-08-20] MEDS: *HR* Heparin 5,000 UNIT/ML VIAL SQ SCH ×3 (05:51→21:36)
[2020-08-20] MEDS: Insulin LISPRO 300 UNITS/3 ML VIAL SQ SCH ×4 (07:20→17:23)
[2020-08-20] MEDS: Gabapentin 400 MG CAPSULE PO SCH ×3 (08:01→21:37)
[2020-08-20] MEDS: Nicotine 21 MG PATCH.TD24 TD SCH (08:02)
[2020-08-20] MEDS: hydrALAZINE 10 MG TABLET PO SCH ×3 (08:02→21:37)
[2020-08-20] MEDS: *HR* Buprenorphine HCl 8 MG TAB.SUBL SL SCH (08:03)
[2020-08-20] MEDS: amLODIPine 5 MG TABLET PO SCH (08:03)
[2020-08-20] MEDS: cefTRIAXone 1,000 MG in Water for inj. (sterile) 10 ML IVP SCH (08:04)
[2020-08-20 13:22] LABS: Bilirubin,Urine Negative (Negative); Blood,Urine Negative (Negative); Clarity,Urine Clear (Clear); Color,Urine Colorless (Yellow); Glucose,Urine (UA) Normal (Normal); Ketones,Urine Negative (Negative); Leukocyte Esterase,Urine Negative (Negative); Nitrite,Urine Negative (Negative); Protein,Urine Negative (Neg-Trace); Specific Gravity,Urine 1.018 (1.010-1.025); Urobilinogen,Urine Normal (Normal)
[2020-08-20 13:36] LABS: Amphetamine Screen,Urine Negative ng/mL (Cutoff=1000); Barbiturate Screen,Urine Negative ng/mL (Cutoff=200); Benzodiazepines Screen,Urine Positive ng/mL (Cutoff=200); Cannabinoid Screen,Urine Positive ng/mL (Cutoff = 50); Cocaine Screen,Urine Negative ng/mL (Cutoff= 300); Opiate Screen,Urine Positive ng/mL (Cutoff=300); Phencyclidine Screen,Urine Negative ng/mL (Cutoff=25)
[2020-08-20] MEDS: hydroCHLOROthiazide 25 MG TABLET PO SCH (15:35)
[2020-08-20] MEDS: Melatonin 3 MG TABLET PO SCH (21:37)
[2020-08-21] MEDS: *HR* OxyCODONE/APAP 7.5/325 TABLET PO PRN ×5 (02:04→21:23)
[2020-08-21] MEDS ORDERED: Vancomycin 1,750 MG/517.5 ML IV.SOLN IVPB SCH (04:00)
[2020-08-21 05:29] LABS: Alanine Aminotransferase 116 Units/L (7-52); Albumin 3.8 g/dL (3.5-5.7); Albumin/Globulin Ratio 1.2 (1.1-2.2); Alkaline Phosphatase 65 Units/L (34-104); Aspartate Amino Transferase 103 Units/L (13-39); BUN/Creatinine Ratio 33 (6-26); Bilirubin,Total 0.5 mg/dL (0.3-1.0); Blood Urea Nitrogen 32 mg/dL (6-20); Calcium 9.3 mg/dL (8.6-10.3); Carbon Dioxide 26 mEq/L (23-29); Chloride 101 mEq/L (98-107); Globulin 3.3 g/dL (2.4-3.5); Glucose 126 mg/dL (70-105); Osmolality,Calculated 290 (280-300); Potassium 3.7 mEq/L (3.5-5.1); Sodium 136 mEq/L (136-145); Total Protein 7.1 g/dL (6.4-8.9); eGFR For African Americans > 60 (> 60); eGFR For Non-African Americans > 60 (> 60)
[2020-08-21] MEDS: *HR* Heparin 5,000 UNIT/ML VIAL SQ SCH ×3 (06:07→21:23)
[2020-08-21] MEDS ORDERED: *HR* Labetalol 20 MG/4 ML SYRINGE IVP PRN (07:57)
[2020-08-21] MEDS: Insulin LISPRO 300 UNITS/3 ML VIAL SQ SCH ×5 (08:23→21:27)
[2020-08-21] MEDS: *HR* OxyCODONE/APAP 5/325 TABLET PO PRN ×2 (09:21→23:20)
[2020-08-21] MEDS ORDERED: *HR* HYDROmorphone (PF) 1 MG/ML SYRINGE IVP ONE (09:53)
[2020-08-21] MEDS: Nicotine 21 MG PATCH.TD24 TD SCH (10:14)
[2020-08-21] MEDS: hydrALAZINE 10 MG TABLET PO SCH ×3 (10:16→21:23)
[2020-08-21] MEDS: *HR* Buprenorphine HCl 8 MG TAB.SUBL SL SCH (10:16)
[2020-08-21] MEDS: hydroCHLOROthiazide 25 MG TABLET PO SCH (10:17)
[2020-08-21] MEDS: Gabapentin 400 MG CAPSULE PO SCH ×3 (10:17→21:22)
[2020-08-21] MEDS: cefTRIAXone 1,000 MG in Water for inj. (sterile) 10 ML IVP SCH (10:18)
[2020-08-21] MEDS: amLODIPine 5 MG TABLET PO SCH (10:20)
[2020-08-21] MEDS: cloNIDine HCL 0.1 MG TABLET PO SCH ×3 (12:27→21:23)
[2020-08-21 12:45] LABS: Thyroid Stimulating Hormone 5.837 mcIU/mL (0.340-5.600)
[2020-08-21] MEDS ORDERED: cefTRIAXone 1,000 MG in Water for inj. (sterile) 10 ML IVP ONE (12:57)
[2020-08-21] MEDS: Melatonin 3 MG TABLET PO SCH (21:23)
[2020-08-21] MEDS: *HR* LORazepam 2 MG/ML VIAL IVP PRN (23:11)
[2020-08-22] MEDS: *HR* OxyCODONE/APAP 7.5/325 TABLET PO PRN ×5 (02:08→20:01)
[2020-08-22] MEDS: *HR* Heparin 5,000 UNIT/ML VIAL SQ SCH ×3 (05:41→20:52)
[2020-08-22] MEDS: Vancomycin 1,500 MG/265 ML IV.SOLN IVPB SCH (06:20)
[2020-08-22] MEDS: Insulin LISPRO 300 UNITS/3 ML VIAL SQ SCH ×4 (08:36→20:52)
[2020-08-22] MEDS: cefTRIAXone 2,000 MG in Water for inj. (sterile) 20 ML IVP SCH (09:03)
[2020-08-22] MEDS: hydrALAZINE 10 MG TABLET PO SCH ×3 (09:03→19:48)
[2020-08-22] MEDS: Gabapentin 400 MG CAPSULE PO SCH ×3 (09:04→19:49)
[2020-08-22] MEDS: hydroCHLOROthiazide 25 MG TABLET PO SCH (09:04)
[2020-08-22] MEDS: *HR* Buprenorphine HCl 8 MG TAB.SUBL SL SCH (09:04)
[2020-08-22] MEDS: amLODIPine 5 MG TABLET PO SCH (09:04)
[2020-08-22] MEDS: cloNIDine HCL 0.1 MG TABLET PO SCH ×3 (09:05→19:49)
[2020-08-22] MEDS: Nicotine 21 MG PATCH.TD24 TD SCH (09:06)
[2020-08-22] MEDS: Melatonin 3 MG TABLET PO SCH (19:49)
[2020-08-22] MEDS: *HR* OxyCODONE/APAP 5/325 TABLET PO PRN (19:49)
[2020-08-23] MEDS: *HR* OxyCODONE/APAP 7.5/325 TABLET PO PRN ×6 (00:24→22:05)
[2020-08-23] MEDS: *HR* Heparin 5,000 UNIT/ML VIAL SQ SCH ×3 (05:33→21:20)
[2020-08-23] MEDS ORDERED: Levothyroxine 25 MCG TABLET PO SCH (06:30)
[2020-08-23] MEDS: Insulin LISPRO 300 UNITS/3 ML VIAL SQ SCH ×4 (08:57→21:18)
[2020-08-23] MEDS: hydroCHLOROthiazide 25 MG TABLET PO SCH (09:02)
[2020-08-23] MEDS: Nicotine 21 MG PATCH.TD24 TD SCH (09:02)
[2020-08-23] MEDS: *HR* Buprenorphine HCl 8 MG TAB.SUBL SL SCH (09:03)
[2020-08-23] MEDS: Gabapentin 400 MG CAPSULE PO SCH ×3 (09:03→21:10)
[2020-08-23] MEDS: hydrALAZINE 10 MG TABLET PO SCH ×3 (09:03→21:10)
[2020-08-23] MEDS: amLODIPine 5 MG TABLET PO SCH (09:03)
[2020-08-23] MEDS: cloNIDine HCL 0.1 MG TABLET PO SCH ×3 (09:04→21:10)
[2020-08-23] MEDS: cefTRIAXone 2,000 MG in Water for inj. (sterile) 20 ML IVP SCH (09:04)
[2020-08-23] MEDS: *HR* LORazepam 2 MG/ML VIAL IVP PRN ×4 (09:17→22:05)
[2020-08-23] MEDS ORDERED: Valsartan 160 MG TABLET PO SCH (10:45)
[2020-08-23 11:41] LABS: Alanine Aminotransferase 139 Units/L (7-52); Albumin 3.6 g/dL (3.5-5.7); Albumin/Globulin Ratio 1.2 (1.1-2.2); Alkaline Phosphatase 60 Units/L (34-104); Aspartate Amino Transferase 90 Units/L (13-39); BUN/Creatinine Ratio 36 (6-26); Bilirubin,Total 0.3 mg/dL (0.3-1.0); Blood Urea Nitrogen 35 mg/dL (6-20); Carbon Dioxide 30 mEq/L (23-29); Chloride 102 mEq/L (98-107); Glucose 134 mg/dL (70-105); Osmolality,Calculated 296 (280-300); Potassium 3.8 mEq/L (3.5-5.1); Sodium 138 mEq/L (136-145); Total Protein 6.6 g/dL (6.4-8.9); eGFR For African Americans > 60 (> 60); eGFR For Non-African Americans > 60 (> 60)
[2020-08-23] MEDS: Melatonin 3 MG TABLET PO SCH (21:11)
[2020-08-23 22:27] VITALS: BP 173/82
[2020-08-23] MEDS: *HR* OxyCODONE/APAP 5/325 TABLET PO PRN (23:14)
== END 2020-08-24 00:15 | disposition left against medical advice (07) | DRG 902 ==
LOC: EMEROOARM 12:53 → 3ANU 12:53 → SUATTDRO 17:42 → 3ANU 18:35
PROVIDERS: ADMIT Internal Medicine; ATTEND Internal Medicine

== ENCOUNTER 2020-08-25 17:39 | Inpatient (IN) ==
[2020-08-25] MEDS ORDERED: *HR* HYDROmorphone (PF) 1 MG/ML SYRINGE IVP ONE (18:08)
[2020-08-25] MEDS ORDERED: cefTRIAXone 2,000 MG in Water for inj. (sterile) 20 ML IVP ONE (18:11)
[2020-08-25] MEDS: 0.9 % Sodium Chloride 1,000 ML IVC SCH ×2 (18:46→20:18)
[2020-08-25] MEDS ORDERED: *HR* LORazepam 0.5 MG TABLET PO ONE (18:50)
[2020-08-25 19:11] LABS: VBG HCO3 29 mEq/L (21-27); VBG PCO2 46 mmHg (41-51); VBG PH 7.41 pH Units (7.32-7.42); VBG PO2 138 mmHg (25-50)
[2020-08-25 19:13] LABS: Basophils # 0.1 K/mcL (0.0-0.2); Basophils % 0.8 %; Eosinophils # 0.3 K/mcL (0.0-0.6); Eosinophils % 3.3 %; Hemoglobin 12.3 g/dL (12.9-16.9); Immature Granulocytes % 0.2 % (0-4); Lymphocytes # 2.5 K/mcL (0.6-4.6); Lymphocytes % 28.9 %; Mean Corpuscular HGB Conc 31.5 g/dL (31.6-35.5); Mean Corpuscular Hemoglobin 28.9 pg (28.0-33.3); Mean Corpuscular Volume 91.8 fL (83.0-100.0); Mean Platelet Volume 10.4 fL (9.4-12.4); Monocytes # 0.9 K/mcL (0.0-1.3); Monocytes % 10.8 %; Neutrophils # 4.8 K/mcL (1.6-8.9); Platelet Count 204 K/mcL (140-400); Red Blood Count 4.25 M/mcL (4.19-5.50); Red Cell Distribution Width 14.2 % (11.5-14.5); White Blood Count 8.5 K/mcL (4.3-11.1)
[2020-08-25 19:14] LABS: INR 1.1; Prothrombin Time 12.4 Seconds (9.4-12.1)
[2020-08-25 19:17] LABS: Activated Partial Thrombo Time 30.2 Seconds (26.0-36.0)
[2020-08-25 19:33] LABS: Alanine Aminotransferase 89 Units/L (7-52); Albumin 3.8 g/dL (3.5-5.7); Albumin/Globulin Ratio 1.2 (1.1-2.2); Alkaline Phosphatase 72 Units/L (34-104); Aspartate Amino Transferase 48 Units/L (13-39); BUN/Creatinine Ratio 22 (6-26); Bilirubin,Direct 0.1 mg/dL (0.0-0.2); Bilirubin,Indirect 0.2 mg/dL (0.0-1.0); Bilirubin,Total 0.3 mg/dL (0.3-1.0); Blood Urea Nitrogen 20 mg/dL (6-20); Carbon Dioxide 28 mEq/L (23-29); Chloride 102 mEq/L (98-107); Globulin 3.3 g/dL (2.4-3.5); Glucose 155 mg/dL (70-105); Magnesium 1.7 mg/dL (1.6-2.6); Osmolality,Calculated 294 (280-300); Phosphorous 3.2 mg/dL (2.7-4.5); Potassium 3.4 mEq/L (3.5-5.1); Sodium 139 mEq/L (136-145); Total Protein 7.1 g/dL (6.4-8.9); Troponin I < 0.03 ng/mL (< 0.04); eGFR For African Americans > 60 (> 60); eGFR For Non-African Americans > 60 (> 60)
[2020-08-25] MEDS ORDERED: *HR* HYDROmorphone (PF) 1 MG/ML SYRINGE IVP STA (21:54)
[2020-08-25] MEDS ORDERED: Ondansetron 4 MG/2 ML VIAL IVP PRN (21:55)
[2020-08-25] MEDS ORDERED: Naloxone 0.4 MG/ML INJ IVP PRN (21:55)
[2020-08-25] MEDS ORDERED: *HR* LORazepam 2 MG/ML VIAL IVP PRN ×2 (22:06)
[2020-08-25] MEDS ORDERED: *HR* Dextrose 50 % in Water (Vial) 50 ML VIAL IVP PRN (22:10)
[2020-08-25] MEDS ORDERED: Dextrose Gel 15 GM/37.5 ML TUBE PO PRN ×2 (22:10)
[2020-08-25] MEDS ORDERED: D5% in Water 1,000 ML IVC PRN (22:10)
[2020-08-25] MEDS ORDERED: Acetaminophen IV 1,000 MG/100 ML BAG IVPB ONE (22:14)
[2020-08-25] MEDS ORDERED: cefTRIAXone 2,000 MG in 0.9 % Sodium Chloride Mini Bag 100 ML IVPB SCH (23:00)
[2020-08-25] MEDS: Gabapentin 400 MG CAPSULE PO SCH (23:24)
[2020-08-25] MEDS: Melatonin 3 MG TABLET PO PRN (23:25)
[2020-08-25] MEDS: *HR* Heparin 5,000 UNIT/ML VIAL SQ SCH (23:25)
[2020-08-25] MEDS: *HR* Metoprolol 5 MG/5 ML VIAL IVP SCH (23:40)
[2020-08-25] MEDS ORDERED: Nicotine 21 MG PATCH.TD24 TD SCH (23:45)
[2020-08-25] MEDS ORDERED: Vancomycin 2,000 MG/520 ML IV.SOLN IVPB ONE (23:46)
[2020-08-25] MEDS ORDERED: Potassium Chloride Elixir 20 MEQ/15 ML UDC PO ONE (23:53)
[2020-08-26 04:12] LABS: Hematocrit 39.3 % (37.5-50.1); Hemoglobin 12.2 g/dL (12.9-16.9); Mean Corpuscular Hemoglobin 28.8 pg (28.0-33.3); Mean Corpuscular Volume 92.9 fL (83.0-100.0); Mean Platelet Volume 11.2 fL (9.4-12.4); Platelet Count 176 K/mcL (140-400); Red Blood Count 4.23 M/mcL (4.19-5.50); Red Cell Distribution Width 14.2 % (11.5-14.5); White Blood Count 7.1 K/mcL (4.3-11.1)
[2020-08-26 04:19] LABS: BUN/Creatinine Ratio 23 (6-26); Blood Urea Nitrogen 18 mg/dL (6-20); Calcium 8.5 mg/dL (8.6-10.3); Carbon Dioxide 28 mEq/L (23-29); Chloride 105 mEq/L (98-107); Glucose 151 mg/dL (70-105); Osmolality,Calculated 293 (280-300); Potassium 3.9 mEq/L (3.5-5.1); Sodium 139 mEq/L (136-145); eGFR For African Americans > 60 (> 60); eGFR For Non-African Americans > 60 (> 60)
[2020-08-26] MEDS: *HR* Metoprolol 5 MG/5 ML VIAL IVP SCH ×3 (06:23→17:38)
[2020-08-26] MEDS: *HR* Heparin 5,000 UNIT/ML VIAL SQ SCH ×3 (06:24→21:35)
[2020-08-26] MEDS: Insulin LISPRO 300 UNITS/3 ML VIAL SUBQ SCH ×3 (08:49→17:17)
[2020-08-26] MEDS ORDERED: *HR* Buprenorphine HCl 8 MG TAB.SUBL SL SCH (09:00)
[2020-08-26] MEDS: *HR* LORazepam 2 MG/ML VIAL IVP PRN ×3 (09:04→23:00)
[2020-08-26] MEDS: Gabapentin 400 MG CAPSULE PO SCH ×3 (09:04→21:34)
[2020-08-26] MEDS ORDERED: *HR* OxyCODONE/APAP 5/325 TABLET PO PRN (10:08)
[2020-08-26] MEDS ORDERED: *HR* OxyCODONE/APAP 7.5/325 TABLET PO PRN (10:08)
[2020-08-26] MEDS: Nicotine 21 MG PATCH.TD24 TD SCH (11:15)
[2020-08-26] MEDS ORDERED: Vancomycin 2,000 MG/520 ML IV.SOLN IVPB SCH (12:00)
[2020-08-26] MEDS: *HR* OxyCODONE/APAP 7.5/325 TABLET PO PRN ×3 (13:01→21:34)
[2020-08-26] MEDS ORDERED: *HR* Labetalol 20 MG/4 ML SYRINGE IVP PRN (15:32)
[2020-08-26] MEDS: 0.9 % Sodium Chloride 1,000 ML IVC SCH (15:42)
[2020-08-26] MEDS: amLODIPine 5 MG TABLET PO SCH (15:55)
[2020-08-26] MEDS: cloNIDine HCL 0.1 MG TABLET PO SCH ×2 (15:55→21:34)
[2020-08-26] MEDS: cefTRIAXone 2,000 MG in 0.9 % Sodium Chloride Mini Bag 100 ML IVPB SCH (17:39)
[2020-08-26] MEDS ORDERED: Thiamine (B-1) 100 MG, Folic Acid 1 MG, MVI, adult with vitamin K 10 ML in 0.9 % Sodi... IVPB SCH (18:00)
[2020-08-26] MEDS: hydrALAZINE 25 MG TABLET PO SCH (21:34)
[2020-08-27] MEDS: *HR* Metoprolol 5 MG/5 ML VIAL IVP SCH ×4 (00:23→18:00)
[2020-08-27] MEDS: *HR* OxyCODONE/APAP 7.5/325 TABLET PO PRN ×6 (01:34→22:22)
[2020-08-27] MEDS: *HR* LORazepam 2 MG/ML VIAL IVP PRN ×4 (04:15→21:33)
[2020-08-27] MEDS: *HR* Heparin 5,000 UNIT/ML VIAL SQ SCH ×3 (05:41→21:34)
[2020-08-27 06:00] LABS: Basophils # 0.1 K/mcL (0.0-0.2); Basophils % 0.9 %; Eosinophils # 0.3 K/mcL (0.0-0.6); Eosinophils % 6.5 %; Hematocrit 36.4 % (37.5-50.1); Hemoglobin 11.3 g/dL (12.9-16.9); Immature Granulocytes % 0.4 % (0-4); Lymphocytes # 1.6 K/mcL (0.6-4.6); Lymphocytes % 30.7 %; Mean Corpuscular Hemoglobin 28.9 pg (28.0-33.3); Mean Corpuscular Volume 93.1 fL (83.0-100.0); Monocytes # 0.6 K/mcL (0.0-1.3); Monocytes % 11.6 %; Neutrophils # 2.6 K/mcL (1.6-8.9); Platelet Count 162 K/mcL (140-400); Red Blood Count 3.91 M/mcL (4.19-5.50); Segmented Neutrophils % 49.9 %; White Blood Count 5.3 K/mcL (4.3-11.1)
[2020-08-27 06:20] LABS: BUN/Creatinine Ratio 21 (6-26); Blood Urea Nitrogen 16 mg/dL (6-20); Calcium 8.8 mg/dL (8.6-10.3); Carbon Dioxide 31 mEq/L (23-29); Chloride 103 mEq/L (98-107); Glucose 142 mg/dL (70-105); Osmolality,Calculated 290 (280-300); Potassium 3.6 mEq/L (3.5-5.1); Sodium 138 mEq/L (136-145); eGFR For African Americans > 60 (> 60); eGFR For Non-African Americans > 60 (> 60)
[2020-08-27] MEDS: Insulin LISPRO 300 UNITS/3 ML VIAL SUBQ SCH ×3 (09:00→16:52)
[2020-08-27] MEDS: hydrALAZINE 25 MG TABLET PO SCH ×3 (09:01→21:33)
[2020-08-27] MEDS: *HR* Buprenorphine HCl 8 MG TAB.SUBL SL SCH (09:01)
[2020-08-27] MEDS: Gabapentin 400 MG CAPSULE PO SCH ×3 (09:01→21:33)
[2020-08-27] MEDS: cloNIDine HCL 0.1 MG TABLET PO SCH ×3 (09:01→21:33)
[2020-08-27] MEDS: Multivit/Ca/Min/Fe/FA 1 TAB TABLET PO SCH (09:01)
[2020-08-27] MEDS: amLODIPine 5 MG TABLET PO SCH (09:01)
[2020-08-27] MEDS: Nicotine 21 MG PATCH.TD24 TD SCH (09:02)
[2020-08-27] MEDS ORDERED: SODIUM CHLORIDE 0.9% IVPB SCH (18:00)
[2020-08-27] MEDS ORDERED: FOLIC ACID IVPB SCH (18:00)
[2020-08-27] MEDS: cefTRIAXone 2,000 MG in 0.9 % Sodium Chloride Mini Bag 100 ML IVPB SCH (18:00)
[2020-08-27] MEDS ORDERED: THIAMINE IVPB SCH (18:00)
[2020-08-27] MEDS: Melatonin 3 MG TABLET PO PRN (21:33)
[2020-08-28] MEDS: *HR* OxyCODONE/APAP 7.5/325 TABLET PO PRN ×2 (02:31→06:43)
[2020-08-28] MEDS: *HR* Metoprolol 5 MG/5 ML VIAL IVP SCH ×2 (05:36)
[2020-08-28] MEDS: *HR* Heparin 5,000 UNIT/ML VIAL SQ SCH (05:37)
[2020-08-28 06:00] LABS: Basophils # 0.1 K/mcL (0.0-0.2); Basophils % 1.1 %; Eosinophils # 0.4 K/mcL (0.0-0.6); Eosinophils % 6.8 %; Hematocrit 37.3 % (37.5-50.1); Hemoglobin 11.9 g/dL (12.9-16.9); Immature Granulocytes % 0.2 % (0-4); Lymphocytes # 1.6 K/mcL (0.6-4.6); Lymphocytes % 27.3 %; Mean Corpuscular HGB Conc 31.9 g/dL (31.6-35.5); Mean Corpuscular Hemoglobin 28.9 pg (28.0-33.3); Mean Corpuscular Volume 90.5 fL (83.0-100.0); Monocytes # 0.5 K/mcL (0.0-1.3); Monocytes % 9.1 %; Neutrophils # 3.2 K/mcL (1.6-8.9); Platelet Count 192 K/mcL (140-400); Red Blood Count 4.12 M/mcL (4.19-5.50); Red Cell Distribution Width 13.6 % (11.5-14.5); Segmented Neutrophils % 55.5 %; White Blood Count 5.7 K/mcL (4.3-11.1)
[2020-08-28 06:24] LABS: BUN/Creatinine Ratio 22 (6-26); Blood Urea Nitrogen 16 mg/dL (6-20); Carbon Dioxide 31 mEq/L (23-29); Chloride 103 mEq/L (98-107); Glucose 111 mg/dL (70-105); Osmolality,Calculated 290 (280-300); Potassium 3.5 mEq/L (3.5-5.1); Sodium 139 mEq/L (136-145); eGFR For African Americans > 60 (> 60); eGFR For Non-African Americans > 60 (> 60)
[2020-08-28 07:15] VITALS: BP 201/114
[2020-08-28] MEDS: amLODIPine 5 MG TABLET PO SCH (08:17)
[2020-08-28] MEDS: Gabapentin 400 MG CAPSULE PO SCH (08:17)
[2020-08-28] MEDS: Multivit/Ca/Min/Fe/FA 1 TAB TABLET PO SCH (08:17)
[2020-08-28] MEDS: *HR* Buprenorphine HCl 8 MG TAB.SUBL SL SCH (08:17)
[2020-08-28] MEDS: hydrALAZINE 25 MG TABLET PO SCH (08:17)
[2020-08-28] MEDS: Nicotine 21 MG PATCH.TD24 TD SCH (08:18)
[2020-08-28] MEDS: Insulin LISPRO 300 UNITS/3 ML VIAL SUBQ SCH (08:19)
[2020-08-28] MEDS ORDERED: *HR* LORazepam 1 MG TABLET PO PRN (09:00)
[2020-08-28] MEDS ORDERED: Valsartan 160 MG TABLET PO SCH (09:00)
[2020-08-28] MEDS ORDERED: cloNIDine HCL 0.1 MG TABLET PO SCH (09:00)
[2020-08-28] MEDS ORDERED: Cefdinir 300 MG CAPSULE PO SCH (10:00)
== END 2020-08-28 10:54 | disposition home or self-care (01) ==
LOC: 3ANU 17:39 → EMEROOARM 17:39 → SUATTDRO 20:55 → 3ANU 22:04
PROVIDERS: ADMIT Student in an Organized Health Care Education/Training Program; ATTEND Family Medicine